=== PATIENT | female | born 1955 | race Caucasian/White ===

== ENCOUNTER 2019-12-14 09:40 | Emergency (ER) | payer MEDICARE, SELFPAY ==
[2019-12-14 09:42] VITALS: BP 161/84; PULSE 84; RESP 20; TEMP 36.9; O2SAT 98; BMI 44.2
[2019-12-14 09:55] VITALS: BP 161/84; PULSE 84; RESP 20; TEMP 36.9; O2SAT 98
--- NOTE | 2019-12-14 09:55 | VDLE_ITS ---
Reason For Study: Swelling RIGHT GSV is normal. CFV is compressible, spontaneous, competent and demonstrates pulsatile venous flow. FV is compressible, spontaneous, competent and demonstrates pulsatile venous flow. POP V is compressible, spontaneous, competent and demonstrates pulsatile venous flow. T/P Trunk is compressible. PTV is compressible. RT PerV is compressible. Calf veins difficult to visualize from prox- mid due to pt body habitus. Procedure Exam performed portable in ED. A preliminary report was called and/or faxed to Don. Interpretation Summary There is no evidence of right lower extremity deep vein thrombosis. Right great saphenous vein appears patent and compressible segmentally. See technical limitations as noted Pulsatile venous flow suggestive of proximal venous hypertension. Clinical correlation would be appropriate. Ordering Physician: Brenda Ochoa Referring Physician: Emperatriz Sepulveda M.D. Performed By: Lila Marrufo RVT
--- NOTE | 2019-12-14 09:56 | ED.VIS.GEN ---
History of Present Illness Chief Complaint: Cellulitis Informant: Patient Onset: Days - 2 days Context: Gradual Onset Current Severity: Moderate Maximum Severity: Moderate Narrative: Patient presents with redness and swelling to the right lower leg. She first noted symptoms Saturday night. This morning she states she noted the redness to come up her leg further. She denies any obvious wounds. No history of cellulitis. No history of blood clots. - Past Medical History (1) Diabetes Status: Chronic (2) Hypertension Status: Chronic (3) High cholesterol Status: Chronic (4) GERD (gastroesophageal reflux disease) Status: Chronic Past Medical History - Allergies and Home Meds Allergies/Adverse Reactions: Allergies lisinopril Allergy (Verified 12/14/19 09:44) Laryngospasms Primary Care Physician: Emperatriz Sepulveda MD [Primary Care Provider] - Prior records reviewed: Yes Review of Systems General: Denies: Chills, Fever Eyes: Denies: Visual changes - bilaterally ENT: Denies: Bilateral ear pain Cardiovascular: Denies: Chest pain Respiratory: Denies: Dyspnea, Cough Gastrointestinal: Denies: Abdominal pain Musculoskeletal: Reports: Swelling Skin: Reports: - - Erythema right lower extremity Neurological: Denies: Headache Allergy: Denies: Uticaria Physical Exam Vital Signs/Narrative: Vital Signs Temp Pulse Resp BP Pulse Ox 12/14/19 09:42 98.4 F 84 20 H 161/84 H 98 Inital Vital Signs reviewed: Yes General: Well nourished, Well developed Head: Normocephalic ENT: Moist mucous membranes Neck: Supple Cardiovascular: Regular rate, Regular rhythm Respiratory: No distress, CTA bilaterally Abdomen: Soft, Nontender Skin: - - Erythema with mild warmth to the right lower extremity. Erythema extends to just below the knee. No open wounds noted. No weeping. Neurological: Alert, Oriented x3 Psychological: Normal affect Diagnostic/Tx/Re-eval Laboratory Results 12/14/19 12/14/19 10:15 10:15 WBC 6.7 RBC 4.12 L Hgb 10.9 L Hct 33.9 L MCV 82.3 MCH 26.5 L MCHC 32.2 RDW Std Deviation 40.4 RDW Coeff of Rocio 13.6 Plt Count 223 MPV 10.6 Immature Gran % (Auto) 0.600 Neut % (Auto) 72.5 H Lymph % (Auto) 18.7 L [place] % (Auto) 7.1 Eos % (Auto) 0.7 Baso % (Auto) 0.4 Absolute Neuts (auto) 4.9 Absolute Lymphs (auto) 1.26 Nucleated RBC % 0 Sodium 137 Potassium 3.4 L Chloride 103 Carbon Dioxide 27.0 Anion Gap 7 BUN 22 H Creatinine 0.95 Estim Creat Clear Calc 54.53 Est GFR (MDRD) Af Amer 76 Est GFR (MDRD) Non-Af 62 BUN/Creatinine Ratio 23.2 H Glucose 202 H Calcium 8.7 - Medical Decision Making Venous ultrasound of the right leg obtained and reveals no evidence of DVT. Examination is consistent with cellulitis. She will be treated with Bactrim and Keflex, first doses given here. Area of erythema is outlined over the proximal lower leg. Patient was advised to return for IV antibiotics should the erythema extend beyond this line. Patient voices understanding and agreement. ED Disposition - Plan for ED Patient: Disposition: Home or Assisted Living Diagnosis: Cellulitis Instructions: Cellulitis Prescriptions: Smz/Tmp Ds [Bactrim Ds] 1 tab PO BID #20 tab Transmission Status: Pending to [id number] Cephalexin [Keflex] 500 mg PO Q6 #40 cap Transmission Status: Pending to [id number] Referrals: Emperatriz Sepulveda MD [Primary Care Provider] - 1 Week
[2019-12-14 10:36] VITALS: BP 127/71; PULSE 78; RESP 18; O2SAT 97
[2019-12-14 10:39] LABS: Absolute Lymphocyte Count 1.26 X10^3/uL (0.83-4.51); Absolute Neutrophil Count 4.9 X10^3/uL (2.0-7.7); Basophil# 0.03 X10^3/uL; Basophil% 0.4 % (0-1); Eosinophil# 0.05 X10^3/uL; Eosinophils% 0.7 % (0-5); Hematocrit 33.9 % (37-47); Hemoglobin 10.9 g/dL (12.0-15.0); Lymphocyte # 1.26 X10^3/ul (4.0); Lymphocyte % 18.7 % (19-41); Mean Corp Hgb Conc 32.2 g/dL (32-36); Mean Corpuscular Hgb 26.5 pg (27.0-32.0); Mean Corpuscular Volume 82.3 fL (81-99); Mean Platelet Vol. 10.6 fl (6.2-12.0); Monocyte# 0.48 X10^3/uL; Monocyte% 7.1 % (0-10); NRBC Flagged by Analyzer 0 % (0-5); Neutrophil # 4.87 X10^3/uL (2.7-7.7); Neutrophil % 72.5 % (47-70); Platelet Count 223 K/mm3 (150-450); RBC Distribution Width CV 13.6 % (11.6-14.6); RBC Distribution Width SD 40.4 fl (35.1-43.9); Red Blood Count 4.12 M/mm3 (4.2-5.4); White Blood Count 6.7 K/mm3 (4.4-11.0)
[2019-12-14 10:48] LABS: Anion Gap 7 (5-15); BUN 22 mg/dL (7-18); BUN/Creat Ratio 23.2 RATIO (10-20); Calcium,Total 8.7 mg/dL (8.5-10.1); Chloride 103 mmol/L (98-107); Creatinine, Serum 0.95 mg/dL (0.55-1.02); EST Glomerular Filtration Rate 62 mL/min (>60); Est Glom Filt Rate - Afr Amer 76 mL/min (>60); Estimated Creatinine Clearance 54.53 ml/min; Glucose 202 mg/dL (74-106); Potassium 3.4 mmol/L (3.5-5.1); Sodium Level 137 mmol/L (136-145)
[2019-12-14 11:00] VITALS: BP 133/67; PULSE 76; RESP 18; O2SAT 97
[2019-12-14] MEDS: Smz/Tmp Ds Tablet 1 TABLET PO (11:12)
[2019-12-14] MEDS: Cephalexin 250 MG Capsule 500 MG PO (11:13)
== END 2019-12-14 11:14 | disposition home or self-care (01) ==
PROVIDERS: Emergency Provider Emergency Medicine; PCP Internal Medicine
DX: L03.115 Cellulitis of right lower limb (principal); E11.9 Type 2 diabetes mellitus without complications; I10 Essential (primary) hypertension; E78.00 Pure hypercholesterolemia, unspecified; K21.9 Gastro-esophageal reflux disease without esophagitis; Z88.8 Allergy status to other drugs, medicaments and biological substances; Z79.4 Long term (current) use of insulin; Z79.899 Other long term (current) drug therapy
CPT/HCPCS: 80048; 85025; 93971; 99285; A4216

== ENCOUNTER 2021-01-25 15:59 | Inpatient (IN) | payer MEDICARE, SELFPAY ==
[2021-01-25] VITALS (19 sets, daily range): BP systolic 127–172; BP diastolic 68–151; PULSE 87–134; RESP 16–28; TEMP 36.4–37.1; O2SAT 88–100; BMI 44.6; BMI 46.3
--- NOTE | 2021-01-25 16:11 | EKG12_ITS ---
Test Reason : Blood Pressure : / mmHG Vent. Rate : 152 BPM Atrial Rate : 159 BPM P-R Int : 000 ms QRS Dur : 084 ms QT Int : 282 ms P-R-T Axes : 000 062 038 degrees QTc Int : 448 ms Atrial fibrillation with rapid ventricular response Nonspecific T wave abnormality Abnormal ECG Confirmed by LIZ GUERRERO, JANAE ([id number]), newspaper managing editor DWAYNE ESTEVES ([id number]) on 01/26/2021 11:31:13 AM Referred By: ESTEFANI Confirmed By:JANAE HILL MD
--- NOTE | 2021-01-25 16:12 | EDS_ITS ---
HPI History of Present Illness Chief Complaint: Fatigue Detail of Chief Complaint: Shortness of breath with activity x3 weeks Informant: patient Narrative Narrative: Patient presents to the emergency department with exertional dyspnea and generalized weakness for the last 3 weeks. She denies any chest pain or palpitations. She denies recent illness. Patient has had one Covid vaccine. Denies any blood or black tarry stool. Patient has been eating drinking normally. Patient has not had symptoms like that before. He denies urinary symptoms. Prior similar symptoms: No PFSH PFSH Medical History (Updated 01/25/21 @ 17:[address] Malena Gutierrez, DO) Diabetes GERD (gastroesophageal reflux disease) HTN (hypertension) Hyperlipemia Home Medications carvedilol 3.125 mg PO BID 12/14/19 [History Last Taken Unknown] cephalexin 500 mg PO Q6 #40 cap 12/14/19 [Rx Last Taken Unknown] felodipine 20 mg PO DAILY 12/14/19 [History Last Taken Unknown] glimepiride 4 mg PO BIDCM 12/14/19 [History Last Taken Unknown] insulin glargine 20 unit SQ QHS 12/14/19 [History Last Taken Unknown] metformin 1,000 mg PO BIDCM 12/14/19 [History Last Taken Unknown] omeprazole 20 mg PO DAILY 12/14/19 [History Last Taken Unknown] simvastatin 40 mg PO QHS 12/14/19 [History Last Taken Unknown] sulfamethoxazole-trimethoprim 1 tab PO BID #20 tab 12/14/19 [Rx Last Taken Unknown] Allergy/AdvReac Type Severity Reaction Status Date / Time lisinopril Allergy Laryngospas Verified 01/25/21 16:02 ms Social History Smoking Status: Never smoker ROS [facility] ED Constitutional Constitutional ED: Reports systems reviewed and no addt'l complaints, except as documented; Denies body ache(s), change in weight or chills Eyes Eyes: Denies acute decrease in peripheral vision, change in vision, double vision or loss of vision ENT ENT ED: Reports none; Denies ear pain, lip swelling, loss taste/smell, neck pain, otalgia or sore throat Cardiovascular Cardiovascular: Reports none; Denies abdominal pain, chest pain with activity, leg edema, lightheadedness, palpitations, rapid heart rate or syncope Respiratory/Chest Respiratory/Chest: Reports none, dyspnea and dyspnea on exertion; Denies change in mental status, cough, dry cough, hemoptysis, shortness of breath at rest or shortness of breath with exertion Gastrointestinal Gastrointestinal: Reports none; Denies abdominal pain, change in stool character, diarrhea, hematemesis, hematochezia, melena, rectal bleeding or vomiting Genitourinary Genitourinary ED: Reports none; Denies abdominal discomfort, anuria, dysuria, genital pain or polyuria Musculoskeletal Musculoskeletal: Reports none; Denies arthralgias, back pain, difficulty walking, extremity pain, muscle weakness or myalgias Integumentary Reports none; Denies abscess or rash Neurologic Neurologic: Reports none and weakness; Denies abnormal gait, confusion, focal weakness, frequent falls, headache(s), loss of vision, numbness, paresthesias, radicular pain or vertigo Psychiatric Psychiatric: Reports systems reviewed and no addt'l complaints, except as documented and none; Denies behavioral changes, confusion, difficulty concent rating, hallucinations, suicidal ideation, tactile hallucinations or visual hallucinations Endocrine Endocrinology: Denies none, cold intolerance, excessive sweating, fatigue or heat intolerance Hematologic/Lymphatic Hematologic/Lymphatic: Reports none; Denies anemia, easy bleeding or easy bruising Allergic/Immunologic Allergic/Immunologic ED: Denies as per HPI, none, lip swelling, mouth swelling, throat swelling, tongue swelling or hives EXAM Physical Exam Const Vital Signs: 01/25/21 16:00 01/25/21 16:27 Temperature 97.6 F L Temperature Source Temporal Pulse Rate 134 H Respiratory Rate 16 Respiratory Pattern Normal Blood Pressure 134/76 H Blood Pressure Mean 95 Pulse Ox 92 Oxygen Delivery Method Room Air Positive well nourished and well developed General Appearance ED: well developed and NAD HEENT Reports TM's clear and moist mucous membranes normocephalic and atraumatic; Negative for trauma or tenderness Tympanic Membrane ED: Yes TM's clear Eyes PERRL and EOMs intact bilaterally General Eye ED: Negative for pale conjunctiva or scleral icterus Neck no lymphadenopathy, supple and no JVD General: Negative for tenderness Chest Wall inspection of chest normal and palpation of chest normal Chest: Negative for tenderness Resp normal respiratory effort and clear to auscultation bilaterally Effort and Inspection: Negative for respiratory distress or pain with movement Auscultation: Negative for rhonchi, wheezes or diminished lung sounds Cardio S1 normal heart sound, S2 normal heart sound and no murmurs; Negative for regular rate or regular rhythm Rate: tachycardic and other Other Details: Irregularly irregular and tachycardic Peripheral Pulses: pulses 2+ throughout GI normal to inspection, nondistended, normoactive bowel sounds, soft to palpation, non-tender, non-distended and no masses Back/Spine no CVA tenderness and no thoracic nor lumbar tenderness Extremity normal to inspection Extremity Narrative: Lymphedema of both lower extremities noted General Extremety ED: Negative for edema General Extremity: Negative for edema Neuro oriented x3, CN's II-XII intact bilaterally, no sensory deficits noted and gait normal Sensorium / Orientation: awake, alert, oriented to person, oriented to place and oriented to time Motor Exam: strength 5/5 throughout and strength abnormal Psych mental status grossly normal Skin no rashes or lesions noted and no wounds MDM MDM MDM Narrative Medical decision making narrative: And receive Cardizem 20 mg IV bolus and is slowed her down into the 80s and 90s. Patient will receive Lasix 40 mg IV. Will be admitted to hospitalist service. Lab Data Attestation: I reviewed the patient's lab results. Labs: Laboratory Results - last 24 hr 01/25/21 01/25/21 01/25/21 16:24 16:24 16:24 WBC 8.8 RBC 4.47 Hgb 11.5 L Hct 36.8 L MCV 82.3 MCH 25.7 L MCHC 31.3 L RDW Std Deviation 42.7 RDW Coeff of Rocio 14.3 Plt Count 313 MPV 11.1 Immature Gran % (Auto) 0.200 Neut % (Auto) 76.4 H Lymph % (Auto) 15.8 L [place] % (Auto) 6.3 Eos % (Auto) 0.8 Baso % (Auto) 0.5 Absolute Neuts (auto) 6.7 Absolute Lymphs (auto) 1.39 Nucleated RBC % 0 PT 15.2 H INR 1.3 APTT 34.1 Sodium 139 Potassium 3.7 Chloride 108 H Carbon Dioxide 24.0 Anion Gap 7 BUN 17 Creatinine 1.10 H Estim Creat Clear Calc 46.46 Est GFR (MDRD) Af Amer 64 Est GFR (MDRD) Non-Af 53 L BUN/Creatinine Ratio 15.5 Glucose 166 H Calcium 9.0 Troponin I < 0.015 B-Natriuretic Peptide 01/25/21 16:24 WBC RBC Hgb Hct MCV MCH MCHC RDW Std Deviation RDW Coeff of Rocio Plt Count MPV Immature Gran % (Auto) Neut % (Auto) Lymph % (Auto) [place] % (Auto) Eos % (Auto) Baso % (Auto) Absolute Neuts (auto) Absolute Lymphs (auto) Nucleated RBC % PT INR APTT Sodium Potassium Chloride Carbon Dioxide Anion Gap BUN Creatinine Estim Creat Clear Calc Est GFR (MDRD) Af Amer Est GFR (MDRD) Non-Af BUN/Creatinine Ratio Glucose Calcium Troponin I B-Natriuretic Peptide 197.4 H Radiography Chest X-Ray - ED: 1 View Diagnostic Testing: Radiology Impression Chest X-Ray 01/25/21 16:27 IMPRESSION: Findings consistent with mild congestive failure and small bilateral pleural effusions. Electronically Signed: Ken Urbano MD at 16:49 EDT , Service support , 1 view chest x-ray obtained interpreted by myself as bilateral effusions and pulmonary congestion consistent with CHF. EKG Initial EKG: Comments: Calculation with rapid ventricular response with a rate of 152 bpm Discharge Plan Triage Chief Complaint: Fatigue ED Provider: Malena Gutierrez Dx/Rx/DC Orders Clinical Impression: Atrial fibrillation with rapid ventricular response, CHF (congestive heart failure) Prescriptions: No Action simvastatin 40 MG tablet 40 mg PO QHS RF: 0 carvedilol 3.125 MG tablet 3.125 mg PO BID RF: 0 glimepiride 4 MG tablet 4 mg PO BIDCM RF: 0 omeprazole 20 MG capsule,delayed release(DR/EC) 20 mg PO DAILY RF: 0 felodipine 10 MG tablet extended release 24 hr 20 mg PO DAILY RF: 0 metformin 500 MG tablet extended release 24 hr 1,000 mg PO BIDCM RF: 0 insulin glargine 100 UNIT/ML insulin pen 20 unit SQ QHS RF: 0 sulfamethoxazole-trimethoprim 1 TABLET tablet 1 tab PO BID Qty: 20 RF: 0 cephalexin 500 MG capsule 500 mg PO Q6 Qty: 40 RF: 0 Primary Care Provider: Emperatriz Sepulveda Referrals: Emperatriz Sepulveda MD [Primary Care Provider] - Disposition Disposition: Acute Care [facility]
--- NOTE | 2021-01-25 16:27 | RAD_ITS ---
STUDY: X-RAY CHEST REASON FOR EXAM: Female, 65 years old. dyspnea TECHNIQUE: AP portable COMPARISON: None. FINDINGS: Mild bilateral perihilar interstitial infiltrates or pulmonary edema with small effusions.. Heart is enlarged.. Normal mediastinum and haseeb. Normal visualized pulmonary arteries. Mildly calcified aortic arch and descending thoracic aorta. Dorsal spine and shoulders demonstrates degenerative change. Normal visualized ribs, and clavicles There is no demonstrated abnormality of the visualized soft tissue structures of the upper abdomen. RAD/Chest 1 View (Portable) IMPRESSION: Findings consistent with mild congestive failure and small bilateral pleural effusions. Electronically Signed: Ken Urbano MD at 16:49 EDT , Service support ,
[2021-01-25] MEDS: 0.9% Normal Saline 1,000 ML 1000 ML IV (16:29)
[2021-01-25 16:32] LABS: Absolute Lymphocyte Count 1.39 X10^3/uL (0.83-4.51); Absolute Neutrophil Count 6.7 X10^3/uL (2.0-7.7); Basophil# 0.04 X10^3/uL; Basophil% 0.5 % (0-1); Eosinophil# 0.07 X10^3/uL; Eosinophils% 0.8 % (0-5); Hematocrit 36.8 % (37-47); Hemoglobin 11.5 g/dL (12.0-15.0); Lymphocyte # 1.39 X10^3/ul (0.83-4.51); Lymphocyte % 15.8 % (19-41); Mean Corp Hgb Conc 31.3 g/dL (32-36); Mean Corpuscular Hgb 25.7 pg (27.0-32.0); Mean Corpuscular Volume 82.3 fL (81-99); Mean Platelet Vol. 11.1 fl (6.2-12.0); Monocyte# 0.56 X10^3/uL; Monocyte% 6.3 % (0-10); NRBC Flagged by Analyzer 0 % (0-5); Neutrophil # 6.74 X10^3/uL (2.7-7.7); Neutrophil % 76.4 % (47-70); Platelet Count 313 K/mm3 (150-450); RBC Distribution Width CV 14.3 % (11.6-14.6); RBC Distribution Width SD 42.7 fl (35.1-43.9); Red Blood Count 4.47 M/mm3 (4.2-5.4); White Blood Count 8.8 K/mm3 (4.4-11.0)
[2021-01-25] MEDS: dilTIAZem 25 MG/5 ML Vial 20 MG IV BOLUS (16:51)
[2021-01-25 16:53] LABS: International Normalized Ratio 1.3; Partial Thromboplast Time 34.1 Seconds (24.1-36.2); Prothrombin Time (Protime)PT. 15.2 SECONDS (11.7-14.9)
[2021-01-25 17:11] LABS: BNP,B-Type NATRIURETIC PEPTIDE 197.4 pg/mL (0-100)
[2021-01-25 17:19] LABS: Anion Gap 7 (5-15); BUN 17 mg/dL (7-18); BUN/Creat Ratio 15.5 RATIO (10-20); Chloride 108 mmol/L (98-107); EST Glomerular Filtration Rate 53 mL/min (>60); Est Glom Filt Rate - Afr Amer 64 mL/min (>60); Estimated Creatinine Clearance 46.46 ml/min; Glucose 166 mg/dL (74-106); Potassium 3.7 mmol/L (3.5-5.1); Sodium Level 139 mmol/L (136-145)
--- NOTE | 2021-01-25 18:08 | HP.PCM_ITS ---
Documented by User: SHAILESH Pereyra 01/25/21 18:42 HPI - General HPI Narrative FORTINO MONTES, is a 65 F who presents today with complaints of feeling weak, tired and short of breath with exertion for the past 3 weeks. Patient denies palpitations, chest pain or increase in swelling. Patient denies any history of atrial fibrillation or congestive heart failure. Patient received Cardizem bolus in ER for heart rate of 130s and states that she subsequently feels less short of breath, current heart rate 90-95. Patient denies fever, chills, nausea, vomiting, diarrhea, constipation. [facility] Medical History Diabetes GERD (gastroesophageal reflux disease) HTN (hypertension) Hyperlipemia Home Medications carvedilol 3.125 mg PO BID 12/14/19 [History Last Taken 01/25/21] felodipine 20 mg PO DAILY 12/14/19 [History Last Taken 01/25/21] glimepiride 4 mg PO BIDCM 12/14/19 [History Last Taken 01/25/21] insulin glargine 22 unit SQ QHS 12/14/19 [History Last Taken 01/24/21] omeprazole 20 mg PO DAILY 12/14/19 [History Last Taken 01/25/21] simvastatin 40 mg PO QHS 12/14/19 [History Last Taken 01/24/21] cranberry 900 mg PO BID 01/25/21 [History Last Taken 01/25/21] multivitamin 1 tab PO DAILY 01/25/21 [History Last Taken 01/23/21] Allergy/AdvReac Type Severity Reaction Status Date / Time lisinopril Allergy Laryngospas Verified 01/25/21 16:02 ms Social History Smoking Status: Never smoker ROS Constitutional Constitutional: Reports fatigue and weakness; Denies anorexia or chills Cardiovascular Cardiovascular: Reports dyspnea on exertion; Denies chest pain or palpitations Respiratory/Chest Respiratory/Chest: Reports shortness of breath with exertion; Denies cough Gastrointestinal Gastrointestinal: Denies abdominal pain, constipation, diarrhea, nausea or vomiting Genitourinary Genitourinary: Denies dysuria Musculoskeletal Musculoskeletal: Denies back pain, extremity pain or joint pain Integumentary Integumentary: Denies dry skin, rash or wounds Neurologic Neurologic: Denies abnormal gait, abnormal speech, confusion or dizziness Psychiatric Psychiatric: Denies anxiety or depression Endocrine Endocrinology: Denies change in body appearance Hematologic/Lymphatic Hematologic/Lymphatic: Denies easy bleeding or easy bruising Vital Signs Vital Signs Vital Signs: 01/25/21 16:00 01/25/21 16:27 Temperature 97.6 F L Temperature Source Temporal Pulse Rate 134 H Respiratory Rate 16 Respiratory Pattern Normal Blood Pressure 134/76 H Blood Pressure Mean 95 Pulse Ox 92 Oxygen Delivery Method Room Air Weight Weight: 277 lb Body Mass Index (BMI) 44.6 Physical Exam Const alert and oriented x3 General Appearance: cooperative HEENT normocephalic and head/scalp atraumatic Eyes PERRL Neck supple and no JVD General: trachea midline Lymph Lymphatic: no lymphadenopathy noted Resp normal respiratory effort, normal air movement and clear to auscultation bilaterally Cardio peripheral pulses 2+ throughout Rate: tachycardic Rhythm: abnormal rhythm irregularly irregular GI normal to inspection, nondistended, normoactive bowel sounds, soft to palpation and non-tender Extremity normal capillary refill and no clubbing, cyanosis or edema General Extremity: no tenderness to palpation of joints or extremities Skin General Skin Exam: no breakdown and turgor normal Lesions: no lesions Rashes: no rashes Neuro CN's II-XII intact bilaterally Psych thought process normal, cooperative and affect normal Appearance: appropriate Lab / Micro Data Result Diagrams: 01/25/21 16:24 01/25/21 16:24 Labs: Laboratory Results - last 24 hr 01/25/21 01/25/21 01/25/21 16:24 16:24 16:24 WBC 8.8 RBC 4.47 Hgb 11.5 L Hct 36.8 L MCV 82.3 MCH 25.7 L MCHC 31.3 L RDW Std Deviation 42.7 RDW Coeff of Rocio 14.3 Plt Count 313 MPV 11.1 Immature Gran % (Auto) 0.200 Neut % (Auto) 76.4 H Lymph % (Auto) 15.8 L [place] % (Auto) 6.3 Eos % (Auto) 0.8 Baso % (Auto) 0.5 Absolute Neuts (auto) 6.7 Absolute Lymphs (auto) 1.39 Nucleated RBC % 0 PT 15.2 H INR 1.3 APTT 34.1 Sodium 139 Potassium 3.7 Chloride 108 H Carbon Dioxide 24.0 Anion Gap 7 BUN 17 Creatinine 1.10 H Estim Creat Clear Calc 46.46 Est GFR (MDRD) Af Amer 64 Est GFR (MDRD) Non-Af 53 L BUN/Creatinine Ratio 15.5 Glucose 166 H Calcium 9.0 Troponin I < 0.015 B-Natriuretic Peptide 01/25/21 16:24 WBC RBC Hgb Hct MCV MCH MCHC RDW Std Deviation RDW Coeff of Rocio Plt Count MPV Immature Gran % (Auto) Neut % (Auto) Lymph % (Auto) [place] % (Auto) Eos % (Auto) Baso % (Auto) Absolute Neuts (auto) Absolute Lymphs (auto) Nucleated RBC % PT INR APTT Sodium Potassium Chloride Carbon Dioxide Anion Gap BUN Creatinine Estim Creat Clear Calc Est GFR (MDRD) Af Amer Est GFR (MDRD) Non-Af BUN/Creatinine Ratio Glucose Calcium Troponin I B-Natriuretic Peptide 197.4 H Radiology Impression Chest X-Ray 01/25/21 16:27 IMPRESSION: Findings consistent with mild congestive failure and small bilateral pleural effusions. Electronically Signed: Ken Urbano MD at 16:49 EDT , Service support , Assessment & Plan Assessment/Plan (1) Atrial fibrillation with rapid ventricular response: (2) CHF (congestive heart failure): QUALIFIERS: Heart failure chronicity: acute Heart failure type: unspecified Qualified Code(s): I50.9 - Heart failure, unspecified PLAN: 1. Atrial fibrillation with rapid ventricular response -Admit to PCU for continuous cardiac monitoring -Continue carvedilol 3.125 twice daily for rate control, consider increasing once Cardizem drip is discontinued for better rate control -Vital signs per protocol, trend BP and heart rate. -Trend cardiac enzymes, initial negative -Echo in a.m. -PT and OT to eval and treat for weakness and fatigue -Will obtain TSH due to new onset A. fib -CBC, CMP in a.m., trend -Initiate Cardizem drip -Therapeutic Lovenox, will transition to oral prior to discharge 2. Congestive heart failure -Lasix 40 mg given in ER, will continue Lasix 40 mg IV twice daily -Daily weights -Strict intake and output for evaluation of Lasix efficacy 3. Hypertension -Continue felodipine, carvedilol -Vital signs per protocol trend BP 4. High cholesterol -Continue simvastatin -Obtain fasting lipid panel in a.m. 5. Diabetes mellitus type 2 -Continue home Lantus 22 units nightly, glimepiride twice daily. -AC at bedtime blood sugars with sliding scale insulin 6. Gastroesophageal reflux disease -Continue pantoprazole DVT Prophylaxis-not indicated, therapeutic Lovenox this patient was seen by SHAILESH Pereyra under the supervision of Dr. Anderson. Documented by User: Dr. Reema Anderson MD 01/25/21 19:09 HPI - General General Date of Admission: 01/25/21 [facility] Medical History Diabetes GERD (gastroesophageal reflux disease) HTN (hypertension) Hyperlipemia Home Medications carvedilol 3.125 mg PO BID 12/14/19 [History Last Taken 01/25/21] felodipine 20 mg PO DAILY 12/14/19 [History Last Taken 01/25/21] glimepiride 4 mg PO BIDCM 12/14/19 [History Last Taken 01/25/21] insulin glargine 22 unit SQ QHS 12/14/19 [History Last Taken 01/24/21] omeprazole 20 mg PO DAILY 12/14/19 [History Last Taken 01/25/21] simvastatin 40 mg PO QHS 12/14/19 [History Last Taken 01/24/21] cranberry 900 mg PO BID 01/25/21 [History Last Taken 01/25/21] multivitamin 1 tab PO DAILY 01/25/21 [History Last Taken 01/23/21] Allergy/AdvReac Type Severity Reaction Status Date / Time lisinopril Allergy Laryngospas Verified 01/25/21 16:02 ms Social History Smoking Status: Never smoker Lab / Micro Data Result Diagrams: 01/25/21 16:24 01/25/21 16:24 Addendum Addendum: This patient was seen in conjunction with Vj Post NP. I have independently interviewed and examined the patient and reviewed pertinent historical, laboratory, and other data. I have reviewed her note and concur with her documentation. 65 y/o female with PMHx of Type 2 DM, Hypertension, hyperlipidemia who comes in with dyspnea on exertion ongoing for weeks. Patient denied any chest pain no palpitations or dizziness. She has chronic leg edema and felt that her leg edema was worse. She has also gained about 12 pounds of weight over the past few months. She denied orthopnea or PND. Denies fever chills In the ED, patient was found to be in A. fib with RVR. She received Cardizem and Lasix. She was feeling better at the time of being seen. Physical Exam: Gen:Morbidly obese, comfortable, not pale, not jaundiced CVS:HS I +II, regular, no murmurs RESP: Diminished at lung bases GI: BS present and normal, soft, nontender, no palpable organs EXT:Bilateral edema +4, chronic lymphedema, in chronic ABNER hoses ASSESSMENT: 1. A. fib with RVR 2. Acute CHF, unclear EF for now 3. Hypertension 4. Type 2 DM 5. Hyperlipidemia 6. Morbid obesity Plan: Continue on Cardizem drip 2D-ECHO, cardiac enzymes, cardiology consult Lasix 40mg IV BID Check magnesium Continue on home meds, blood glucose checks with ISS Visit Charges Inpatient E&M: 97528 Init Hosp L3 Procedures Hospitalists Procedures: 19423 Advncd Care Plan 30 Min
[2021-01-25] MEDS: Furosemide 40 MG/4 ML Vial IV (18:17)
[2021-01-25] MEDS: Enoxaparin 120 MG/0.8 ML Syringe SC (18:32)
--- NOTE | 2021-01-25 18:44 | ECHOCS_ITS ---
Version 2 Reason For Study: AFIB/FLUTTER Procedure This was a 2D Doppler, Color Flow transthoracic echocardiogram. The study was technically difficult. Contrast injection was performed. Exam performed portable in patient room. Left Ventricle Borderline enlarged left ventricle. Moderate global left ventricular systolic dysfunction. The estimated ejection fraction is 35 %. Unable to assess diastolic dysfunction. Right Ventricle Normal RV size. Normal systolic function. Atria The left atrium is mildly enlarged. Normal right atrium. No doppler evidence for ASD. Mitral Valve There is mild mitral annular calcification. Extension of the mitral annular calcification on the base of the posterior mitral valve leaflet. Mild (1+) mitral valve insufficiency. Tricuspid Valve Normal tricuspid valve. Mild tricuspid valve insufficiency. Right ventricular systolic pressure estimated to be 66 mmHg. Aortic Valve Trisinus/trileaflet aortic valve. Normal aortic valve. Pulmonic Valve The pulmonic valve is not well visualized. Trivial pulmonic valve insufficiency. Great Vessels Borderline enlarged aortic root. Pericardium/Pleural No pericardial effusion. Medication Diluted definity 4ml given slow IV push to enhance endocardial definition. MMode/2D Measurements & Calculations LVIDd: 5.2 cm IVSd: 0.94 cm Ao root diam: 3.9 cm LVIDs: 4.6 cm LVPWd: 0.93 cm RVDd: 4.6 cm FS: 10.3 % LAV(MOD-bp): 83.6 ml LVAd ap4: 42.4 cm2 LVAd ap2: 36.9 cm2 LAV(MOD-bp) Indexed: 35.9 ml/m2 LVLd ap4: 9.1 cm LVLd ap2: 8.4 cm LAV(MOD-sp2): 70.6 ml EDV(MOD-sp4): 162.5 ml EDV(MOD-sp2): 137.8 ml LAV(MOD-sp4): 89.1 ml EDV(sp4-el): 166.9 ml EDV(sp2-el): 137.5 ml LVAs ap4: 32.2 cm2 LVAs ap2: 32.5 cm2 LVLs ap4: 8.0 cm LVLs ap2: 7.9 cm ESV(MOD-sp4): 106.1 ml ESV(MOD-sp2): 111.0 ml ESV(sp4-el): 110.4 ml ESV(sp2-el): 113.3 ml EF(MOD-sp4): 34.7 % EF(MOD-sp2): 19.5 % EF(sp4-el): 33.9 % SV(MOD-sp4): 56.4 ml SV(MOD-sp2): 26.8 ml SV(sp4-el): 56.5 ml LA A4 area: 25.9 cm2 LA dimension(2D): 3.7 cm RA A4 area: 19.1 cm2 Time Measurements MV dec time: 0.12 sec Doppler Measurements & Calculations MV E max heidy: 124.0 cm/sec Ao V2 max: 118.9 cm/sec LV V1 max: 97.9 cm/sec Ao max P.7 mmHg LV V1 max P.9 mmHg PA V2 max: 119.6 cm/sec TR max heidy: 356.2 cm/sec TR max P.7 mmHg ECHO/Echo Complete W/ Contrast Interpretation Summary The study was technically difficult. Contrast injection was performed. Borderline enlarged left ventricle. Moderate global left ventricular systolic dysfunction. The estimated ejection fraction is 35 %. The left atrium is mildly enlarged. There is mild mitral annular calcification. Extension of the mitral annular calcification on the base of the posterior mitr al valve leaflet. Mild (1+) mitral valve insufficiency. Mild tricuspid valve insufficiency. Trivial pulmonic valve insufficiency. Borderline enlarged aortic root. Right ventricular systolic pressure estimated to be 66 mmHg c/w pulmonary hyper tension. Unable to assess diastolic dysfunction. Ordering Physician: Reema Anderson Referring Physician: MAXIM JIMENEZ Performed By: Ariane Chowdary, RDCS, RVT
[2021-01-25] MEDS: Carvedilol 3.125 MG TABLET PO (20:14)
[2021-01-25] MEDS: Atorvastatin Calcium 20 MG Tablet PO (20:14)
--- NOTE | 2021-01-25 20:15 | NURSING ---
Pt requesting to have meds early. HR still high and could benefit from having Coreg given earlier with the Cardizem gtt.
[2021-01-25 20:26] LABS: Bedside Glucose 143 mg/dL (70-110)
[2021-01-25 20:52] LABS: Magnesium 1.6 mg/dL (1.6-2.6); Thyroid Stim Hormone (TSH) 2.42 uIU/mL (0.358-3.74)
[2021-01-26] VITALS (35 sets, daily range): BP systolic 113–149; BP diastolic 64–100; PULSE 70–110; RESP 16–28; TEMP 36.3–36.7; O2SAT 89–98
[2021-01-26 02:12] LABS: Absolute Lymphocyte Count 1.82 X10^3/uL (0.83-4.51); Absolute Neutrophil Count 5.8 X10^3/uL (2.0-7.7); Basophil# 0.04 X10^3/uL; Basophil% 0.5 % (0-1); Eosinophil# 0.09 X10^3/uL; Eosinophils% 1.1 % (0-5); Hematocrit 37.7 % (37-47); Hemoglobin 11.6 g/dL (12.0-15.0); Lymphocyte # 1.82 X10^3/ul (0.83-4.51); Lymphocyte % 21.7 % (19-41); Mean Corp Hgb Conc 30.8 g/dL (32-36); Mean Corpuscular Hgb 25.7 pg (27.0-32.0); Mean Corpuscular Volume 83.6 fL (81-99); Mean Platelet Vol. 11.1 fl (6.2-12.0); Monocyte# 0.59 X10^3/uL; NRBC Flagged by Analyzer 0 % (0-5); Neutrophil # 5.79 X10^3/uL (2.7-7.7); Neutrophil % 69.2 % (47-70); Platelet Count 315 K/mm3 (150-450); RBC Distribution Width CV 14.2 % (11.6-14.6); RBC Distribution Width SD 43.1 fl (35.1-43.9); Red Blood Count 4.51 M/mm3 (4.2-5.4); White Blood Count 8.4 K/mm3 (4.4-11.0)
[2021-01-26 02:31] LABS: ALB/GLOB Ratio 0.8 RATIO (0.9-2.4); AST(SGOT) 21 U/L (15-37); Alanine Aminotransfer ALT/SGPT 30 U/L (13-56); Albumin, Serum 3.3 g/dL (3.2-5.0); Alkaline Phosphatase 100 U/L (45-117); Anion Gap 6 (5-15); BUN 18 mg/dL (7-18); BUN/Creat Ratio 16.5 RATIO (10-20); Calcium,Total 8.8 mg/dL (8.5-10.1); Chloride 109 mmol/L (98-107); Cholesterol 129 mg/dL (200); Creatinine, Serum 1.09 mg/dL (0.55-1.02); EST Glomerular Filtration Rate 53 mL/min (>60); Est Glom Filt Rate - Afr Amer 64 mL/min (>60); Estimated Creatinine Clearance 46.89 ml/min; Globulin 4.2 g/dL (2.2-4.2); Glucose 191 mg/dL (74-106); High Density Lipoprotein 59 mg/dL; Potassium 3.2 mmol/L (3.5-5.1); Protein, Total 7.5 g/dL (6.4-8.2); Sodium Level 141 mmol/L (136-145); Triglycerides 81 mg/dL; Very Low Density Lipoprotein 16 mg/dL (5-40)
[2021-01-26] MEDS: Potassium Chloride Oral Tablet 20 MEQ 40 MEQ PO (06:26)
[2021-01-26 06:45] LABS: Bedside Glucose 137 mg/dL (70-110)
--- NOTE | 2021-01-26 08:41 | CON.PCM.CA_ITS ---
Assessment & Plan Assessment/Plan (1) Atrial fibrillation with rapid ventricular response: PLAN: The patient presents with atrial fibrillation with RVR. The etiology may be multifactorial secondary to combination of age, hypertension, MORGAN, as well as other conditions yet to be defined. At the moment she is being monitored. She has been treated medically with rate control therapy. She has been placed on anticoagulant therapy with subcutaneous Lovenox. She is pending further evaluation with a transthoracic echocardiogram. Depending upon her clinical course and findings she may, at some point in time, need additional cardiovascular diagnostic studies to assist in her ongoing evaluation care. Also, at some point in time, she may need to be considered for an attempt at regaining sinus rhythm with synchronized biphasic DC cardioversion. (2) CHF (congestive heart failure): QUALIFIERS: Heart failure type: unspecified Heart failure chronicity: acute Qualified Code(s): I50.9 - Heart failure, unspecified PLAN: She was diagnosed with CHF. It is unclear if this is solely related to the findings of atrial fibrillation versus other cardiovascular/medical conditions. At the moment she is being monitored. She is being treated medically for her atrial dysrhythmia. She has also received IV diuretic therapy to assist with volume control. She is pending further evaluation with a transthoracic echocardiogram. (3) High cholesterol: PLAN: She does have a history of hyperlipidemia. She should continue lip id-lowering therapy as deemed appropriate. (4) Hypertension: QUALIFIERS: Hypertension type: essential hypertension Qualified Code(s): I10 - Essential (primary) hypertension PLAN: She does have a history of hypertension. She can continue medical management with adjustment as deemed appropriate around her other cardiovascular and comorbidities. Of note, depending upon her clinical course, if there is any concern that her dihydropyridine inhibitor (felodipine) is contributing to any of her lower extremity edema than it may need to be decreased and/or discontinued. (5) Diabetes: PLAN: She will continue evaluation care per internal medicine. Addt'l Comments Overall, at the present time, she will continue to be monitored. She will continue medical therapy to assist with her atrial dysrhythmia as well as her CHF presentation. She will continue her noninvasive evaluation at this time with a transthoracic echocardiogram. Again, depending upon her clinical course and findings, at some point in time she may need further cardiac diagnostic studies as well as consideration for an attempt at regaining sinus rhythm with a synchronized biphasic DC cardioversion (which, unless needed urgently/emergently, would be after she had been on medical management including anticoagulant therapy for an appropriate period of time). The above was discussed and reviewed with the patient. She was agreeable to this approach. This note was generated using a voice recognition system and there may be incorrect words, spelling or punctuation that were not noted when reviewing the office note prior to saving. HPI Consult Data Date of Consult: 01/26/21 HPI Narrative HPI Narrative: FORTINO MONTES, is a 65 year old white female who presents for cardiovascular consultation based upon concerns of atrial fibrillation and congestive heart failure (yet to be defined) superimposed upon a history of hyperlipidemia, hypertension, and diabetes mellitus. 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 Robles) for her primary medical concerns and her MORGAN. To the best of her knowledge she has never had to go through any formal cardiovascular diagnostic studies/procedures. She notes that she has had chronic lower extremity peripheral pitting edema for which she has been treated with support/compression stockings. However, she notes that over approximately the last 2 to 4 weeks she has felt more tired, fatigued, short of breath with activity, and has had worsening lower extremity peripheral pitting edema. She has denied any ongoing chest discomfort at rest or with exertion. She states she sleeps with 2 pillows as well as her MORGAN device. There has been no near syncope or syncope. She has not sensed obvious palpitations or rapid heart rates. Based upon her ongoing symptoms she presented to the emergency department for further evaluation. She was found to be in atrial fibrillation with RVR. Her troponin I level was negative. A chest x-ray suggested increased pulmonary vascularity and blunting of the costophrenic angles compatible with bilateral pleural effusions. She was treated with IV diltiazem and IV furosemide and placed in the PCU for further evaluation and care. She does state that she feels somewhat better this morning as she feels somewhat more mentally clear compared to what she had been feeling recently where she noted in the morning hours she felt somewhat foggy . Since being in the PCU she has had follow-up troponin I levels. They have been reported as negative. Her cardiac rhythm has been atrial fibrillation with a controlled ventricular response on IV diltiazem and initiation of oral beta- olga therapy. She is pending further evaluation with a transthoracic echocardiogram. [facility] Medical History (Updated 01/26/21 @ 08:[address] Martínez Dawson MD) Diabetes GERD (gastroesophageal reflux disease) HTN (hypertension) Hyperlipemia Sleep apnea Home Medications carvedilol 3.125 mg PO BID 12/14/19 [History Last Taken 01/25/21] felodipine 20 mg PO DAILY 12/14/19 [History Last Taken 01/25/21] glimepiride 4 mg PO BIDCM 12/14/19 [History Last Taken 01/25/21] insulin glargine 22 unit SQ QHS 12/14/19 [History Last Taken 01/24/21] omeprazole 20 mg PO DAILY 12/14/19 [History Last Taken 01/25/21] simvastatin 40 mg PO QHS 12/14/19 [History Last Taken 01/24/21] cranberry 900 mg PO BID 01/25/21 [History Last Taken 01/25/21] multivitamin 1 tab PO DAILY 01/25/21 [History Last Taken 01/23/21] Allergy/AdvReac Type Severity Reaction Status Date / Time lisinopril Allergy Laryngospas Verified 01/25/21 16:02 ms Social History Smoking Status: Never smoker ROS Constitutional Constitutional: Reports weakness Eyes Eyes: Reports as per HPI ENT HEENT: Reports as per HPI Cardiovascular Cardiovascular: Reports dyspnea on exertion, edema and fatigue Respiratory/Chest Respiratory/Chest: Reports dyspnea on exertion Gastrointestinal Gastrointestinal: Reports as per HPI Genitourinary Genitourinary: Reports as per HPI Musculoskeletal Musculoskeletal: Reports as per HPI Integumentary Integumentary: Reports as per HPI Neurologic Neurologic: Reports as per HPI Physical Exam Const alert and oriented x3 Orientation / Consciousness: awake HEENT normocephalic, head/scalp atraumatic and hearing grossly normal bilaterally Eyes PERRL, EOMs intact bilaterally, conjunctivae normal and no scleral icterus Neck full ROM, supple and no JVD Chest inspection of chest normal Resp Auscultation: diminished lung sounds bilateral lower Cardio Rhythm: abnormal rhythm irregularly irregular Heart Sounds: S1 normal and S2 normal GI normal to inspection, nondistended, normoactive bowel sounds Extremity General Extremity: edema bilateral lower extremity Details: severe Skin no rashes or lesions noted Neuro oriented x3 and moves all extremities Psych mental status grossly normal Procedure Criteria Type of Procedure Procedure Type: Elective Elective Risks - COVID COVID Risk Discussion: The surgeon/proceduralist and patient have discussed in detail the risk of exposure to and/or potential harm posed by the COVID-19 virus with having a surgery/procedure at this time versus the risk of delaying the surgery/procedure. It is not possible to know either the risk of delaying the surgery or procedure or chance of getting an infection with perfect accuracy, but a joint decision was made between the patient and the surgeon/proceduralist to proceed at this time with the scheduled surgery/procedure as indicated on the consent form.
[2021-01-26] MEDS: Glimepiride 4 MG Tablet PO ×2 (09:50→17:23)
[2021-01-26] MEDS: Multivitamins,Therapeutic Tablet 1 TABLET PO (09:50)
[2021-01-26] MEDS: Pantoprazole Sodium 20 MG Tablet PO (09:50)
[2021-01-26] MEDS: Carvedilol 3.125 MG TABLET PO (09:50)
[2021-01-26] MEDS: Enoxaparin 150 MG/ML Syringe 130 MG SC ×2 (09:53→20:50)
[2021-01-26] MEDS: 0.9% Saline Lock 10 ML Syringe IV ×2 (09:54→17:26)
[2021-01-26] MEDS: Furosemide 40 MG/4 ML Vial IV ×2 (09:54→17:26)
--- NOTE | 2021-01-26 10:42 | CASEMGMT ---
RAQUEL RIOJAS assesment: Face to Face with patient for initial transition planning/care coordination assessment. RAQUEL RIOJAS introduced self and role at [facility], pt voices understanding and consents to assessment. Pt is sitting up on side of bed in no distress on room air. Pt is A/Ox4 and answers all questions appropriately.? Care providers, pharmacy,?and demographics verified. ? Presentation: Pt c/o increased fatigue for 3 weeks Admitting dx: Afib RVR, CHF PCP: Derick Specialists: nabor Robles [facility]erred [facility]acy: [facility] Living Will/HPOA: Pt states does not have LW/HPOA but would like to complete AD's at this time. Shahbaz SW aware, voices understanding. LNOK: Jah Allen, son; Martínez Allen, son Living Arrangements: Pt states lives alone in 2 story home and states normally no concerns at home but states d/t fatigue has had difficulty for last several weeks. Pt states is normally independent with ADL's. Transportation: Pt states drives self and states no transportation concerns. DME/HHC: Pt states has 2L nc at bedtime and cpap thru [employer]. Pt states no need for any further DME. Pt states no hx of HHC or SNF. Pt states no concerns with going home at time of discharge. Pt is retired. Pt states does not smoke cigarettes or drink ETOH. Pt states no further concerns/needs. CM to follow for PT/OT evals and any further discharge planning/needs. Advised pt to ask for CM if any further questions/concerns/needs arise, voices understanding. ? Pt Goal: Home Plan: [place] RAQUEL RIOJAS
[2021-01-26] MEDS: Insulin Lispro 100 UNIT/ML INSULN.PEN SC ×3 (12:28→20:50)
[2021-01-26 12:35] LABS: Bedside Glucose 250 mg/dL (70-110)
--- NOTE | 2021-01-26 13:58 | CASEMGMT ---
SW met with patient, introduced self and role at [facility]. SW confirmed she would like to do Healthcare Power of Tax Agent and Healthcare Living Will. Documents completed with patient. Copies made and given to patient along with originals. A copy of each was also placed on patient's chart. Fabienne ARAGON
--- NOTE | 2021-01-26 14:01 | CASEMGMT ---
RAQUEL RIOJAS NOTE: PT/OT notes reviewed--additional therapy recommended. RAQUEL RIOJAS to room to discuss discharge planning. Pt made aware of therapies recommendations. Discussed options of HHC vs OP therapy. Pt states she is not sure yet which she would prefer and would like to talk w/RAQUEL RIOJAS again tomorrow about this, as she does not know how she will feel by the time is she is discharged. She has been to [facility] in the past and states would most likely go there if she does do OP therapy. Tali MOOREN RAQUEL CM
--- NOTE | 2021-01-26 14:18 | PN.HOSP_ITS ---
Documented by User: Jah TAM 01/26/21 14:30 Subjective Subjective Patient is a 65-year-old female comfortably resting in bed, alert and oriented x3. Patient reports no change or progression of her weakness from admission. Denies chest pain, shortness of breath, palpitations, sputum production, fever, chills, N/V/D. Objective Data Objective Data Vital Signs: Vital Signs Temp Pulse Resp BP Pulse Ox 97.4 F L 76 24 H 118/64 89 01/26/21 12:00 01/26/21 12:00 01/26/21 12:00 01/26/21 12:00 01/26/21 12:26 Oxygen Flow Rate (L/min) 2 Oxygen Delivery Method Room Air Weight: 289 lb 0.416 oz Body Mass Index (BMI) 46.3 Intake & Output: Intake and Output for Last 24 Hours 01/24/21 01/25/21 01/26/21 23:59 23:59 23:59 Intake Total 1288.25 / 1303.25 561.92 / 561.92 Output Total 250 / 250 Balance 1288.25 / 1303.25 311.92 / 311.92 Lab / Micro Data Result Diagrams: 01/26/21 01:55 01/26/21 01:55 Labs: Laboratory Results - last 24 hr 01/25/21 01/25/21 01/25/21 16:24 16:24 16:24 WBC 8.8 RBC 4.47 Hgb 11.5 L Hct 36.8 L MCV 82.3 MCH 25.7 L MCHC 31.3 L RDW Std Deviation 42.7 RDW Coeff of Rocio 14.3 Plt Count 313 MPV 11.1 Immature Gran % (Auto) 0.200 Neut % (Auto) 76.4 H Lymph % (Auto) 15.8 L Rankin % (Auto) 6.3 Eos % (Auto) 0.8 Baso % (Auto) 0.5 Absolute Neuts (auto) 6.7 Absolute Lymphs (auto) 1.39 Nucleated RBC % 0 PT 15.2 H INR 1.3 APTT 34.1 Sodium 139 Potassium 3.7 Chloride 108 H Carbon Dioxide 24.0 Anion Gap 7 BUN 17 Creatinine 1.10 H Estim Creat Clear Calc 46.46 Est GFR (MDRD) Af Amer 64 Est GFR (MDRD) Non-Af 53 L BUN/Creatinine Ratio 15.5 Glucose 166 H Calcium 9.0 Magnesium Total Bilirubin AST ALT Alkaline Phosphatase Troponin I < 0.015 B-Natriuretic Peptide Total Protein Albumin Globulin Albumin/Globulin Ratio Triglycerides Cholesterol LDL Cholesterol VLDL Cholesterol HDL Cholesterol TSH POC Glucose 01/25/21 01/25/21 01/25/21 16:24 19:55 19:55 WBC RBC Hgb Hct MCV MCH MCHC RDW Std Deviation RDW Coeff of Rocio Plt Count MPV Immature Gran % (Auto) Neut % (Auto) Lymph % (Auto) Rankin % (Auto) Eos % (Auto) Baso % (Auto) Absolute Neuts (auto) Absolute Lymphs (auto) Nucleated RBC % PT INR APTT Sodium Potassium Chloride Carbon Dioxide Anion Gap BUN Creatinine Estim Creat Clear Calc Est GFR (MDRD) Af Amer Est GFR (MDRD) Non-Af BUN/Creatinine Ratio Glucose Calcium Magnesium 1.6 Total Bilirubin AST ALT Alkaline Phosphatase Troponin I < 0.015 B-Natriuretic Peptide 197.4 H Total Protein Albumin Globulin Albumin/Globulin Ratio Triglycerides Cholesterol LDL Cholesterol VLDL Cholesterol HDL Cholesterol TSH 2.42 POC Glucose 01/25/21 01/26/21 01/26/21 20:13 01:55 01:55 WBC 8.4 RBC 4.51 Hgb 11.6 L Hct 37.7 MCV 83.6 MCH 25.7 L MCHC 30.8 L RDW Std Deviation 43.1 RDW Coeff of Rocio 14.2 Plt Count 315 MPV 11.1 Immature Gran % (Auto) 0.500 Neut % (Auto) 69.2 Lymph % (Auto) 21.7 Rankin % (Auto) 7.0 Eos % (Auto) 1.1 Baso % (Auto) 0.5 Absolute Neuts (auto) 5.8 Absolute Lymphs (auto) 1.82 Nucleated RBC % 0 PT INR APTT Sodium 141 Potassium 3.2 L Chloride 109 H Carbon Dioxide 26.0 Anion Gap 6 BUN 18 Creatinine 1.09 H Estim Creat Clear Calc 46.89 Est GFR (MDRD) Af Amer 64 Est GFR (MDRD) Non-Af 53 L BUN/Creatinine Ratio 16.5 Glucose 191 H Calcium 8.8 Magnesium Total Bilirubin 0.70 AST 21 ALT 30 Alkaline Phosphatase 100 Troponin I B-Natriuretic Peptide Total Protein 7.5 Albumin 3.3 Globulin 4.2 Albumin/Globulin Ratio 0.8 L Triglycerides 81 Cholesterol 129 LDL Cholesterol 54 VLDL Cholesterol 16 HDL Cholesterol 59 TSH POC Glucose 143 H 01/26/21 01/26/21 01/26/21 01:55 06:28 12:27 WBC RBC Hgb Hct MCV MCH MCHC RDW Std Deviation RDW Coeff of Rocio Plt Count MPV Immature Gran % (Auto) Neut % (Auto) Lymph % (Auto) Rankin % (Auto) Eos % (Auto) Baso % (Auto) Absolute Neuts (auto) Absolute Lymphs (auto) Nucleated RBC % PT INR APTT Sodium Potassium Chloride Carbon Dioxide Anion Gap BUN Creatinine Estim Creat Clear Calc Est GFR (MDRD) Af Amer Est GFR (MDRD) Non-Af BUN/Creatinine Ratio Glucose Calcium Magnesium Total Bilirubin AST ALT Alkaline Phosphatase Troponin I < 0.015 B-Natriuretic Peptide Total Protein Albumin Globulin Albumin/Globulin Ratio Triglycerides Cholesterol LDL Cholesterol VLDL Cholesterol HDL Cholesterol TSH POC Glucose 137 H 250 H Radiography Diagnostic Testing: Radiology Impression Chest X-Ray 01/25/21 16:27 IMPRESSION: Findings consistent with mild congestive failure and small bilateral pleural effusions. Electronically Signed: Ken Urbano MD at 16:49 EDT , Service support , Echocardiogram 01/25/21 18:44 Interpretation Summary The study was technically difficult. Contrast injection was performed. Borderline enlarged left ventricle. Moderate global left ventricular systolic dysfunction. The estimated ejection fraction is 35 %. The left atrium is mildly enlarged. There is mild mitral annular calcification. Extension of the mitral annular calcification on the base of the posterior mitral valve leaflet. Mild (1+) mitral valve insufficiency. Mild tricuspid valve insufficiency. Trivial pulmonic valve insufficiency. Borderline enlarged aortic root. Right ventricular systolic pressure estimated to be 66 mmHg c/w pulmonary hypertension. Unable to assess diastolic dysfunction. Ordering Physician: Reema Anderson Referring Physician: MAXIM JIMENEZ Performed By: Ariane Chowdary, RDCS, RVT Physical Exam Narrative See subjective. Const alert, oriented x3 and no apparent distress HEENT head/scalp atraumatic, moist oral mucous membranes and oropharynx normal Head and Scalp: normocephalic Eyes PERRL, EOMs intact bilaterally and conjunctivae normal Neck no lymphadenopathy, supple and no JVD Resp normal respiratory effort, no retractions, no use of accessory muscles and clear to auscultation bilaterally Cardio regular rate, regular rhythm, no murmurs and no JVD GI normal to inspection, nondistended, normoactive bowel sounds, soft to palpation and non-tender Extremity normal to inspection, full ROM and no clubbing, cyanosis or edema Skin no rashes or lesions noted, no wounds and skin turgor normal Neuro CN's II-XII intact bilaterally Psych affect normal Assessment & Plan Assessment/Plan (1) Atrial fibrillation with rapid ventricular response: (2) CHF (congestive heart failure): QUALIFIERS: Heart failure chronicity: acute Heart failure type: unspecified Qualified Code(s): I50.9 - Heart failure, unspecified (3) Hypertension: QUALIFIERS: Hypertension type: essential hypertension Qualified Code(s): I10 - Essential (primary) hypertension (4) High cholesterol: (5) Diabetes: (6) GERD (gastroesophageal reflux disease): PLAN: 1) A-Fib w/ RVR [id number] score 5. On carvedilol 3.125 p.o. twice daily at home. Cardizem drip currently infusing. TSH unremarkable. Cardiology following. Plan; continue Cardizem infusion and carvedilol. Transition to oral anticoagulation at discharge. 2) CHF Echocardiogram on 01/26/2021 demonstrated enlarged left ventricle, moderate left ventricular systolic dysfunction, an estimated EF of 35%, RVSP of 66 mmHg. Diastolic function unable to be assessed. Patient unsure if she has had echocardiogram in the past, none available in medical records. On carvedilol 3.125 p.o. twice daily at home. Allergic to lisinopril, not currently on Lasix at home. Cardiology following. Plan; continue carvedilol and Lasix, cardiology following, daily weights, monitor I&O's. 3) HTN Continue felodipine and carvedilol. 4) hypercholesterolemia Lipids within normal limits. Continue simvastatin. 5) DM 2 Continue home Lantus and glimepiride. 6) GERD Continue pantoprazole. DVT prophylaxis - Lovenox SC Patient seen by Jah Fernandez PA-C, under the supervision of Dr. Ramirez. Documented by User: Dr. Dg Ramirez, 01/26/21 15:08 Objective Data Lab / Micro Data Result Diagrams: 01/26/21 01:55 01/26/21 01:55 Physical Exam Const alert and oriented x3 Resp normal respiratory effort and clear to auscultation bilaterally Cardio regular rate, S1 normal heart sound and S2 normal heart sound GI normal to inspection, nondistended, normoactive bowel sounds, non-tender and non-distended Extremity normal to inspection Assessment & Plan Assessment/Plan (1) Atrial fibrillation with rapid ventricular response: PLAN: 1. Atrial fibrillation with RVR * Currently rate controlled. * Echocardiogram showed an EF of 35% complicated by pulmonary hypertension with an RVSP of 66 mmHg * Discussed with Dr. Dawson, he recommends since she is rate controlled, to cut the rate down from 10-5. He is also okay with increasing the carvedilol from 3.125-6.25. Continue with diuresis as well. 2. Acute heart failure reduced ejection fraction * EF of 35%. Patient on IV furosemide. Visit Charges Inpatient E&M: 64014 Subs Hosp L2
[2021-01-26 17:30] LABS: Bedside Glucose 216 mg/dL (70-110)
[2021-01-26] MEDS: Carvedilol 6.25 MG Tablet PO (20:49)
[2021-01-26] MEDS: Atorvastatin Calcium 20 MG Tablet PO (20:49)
[2021-01-26] MEDS: Aspirin 325 MG Tablet PO (20:50)
[2021-01-26 21:01] LABS: Bedside Glucose 265 mg/dL (70-110)
[2021-01-27] VITALS (25 sets, daily range): BP systolic 104–149; BP diastolic 70–99; PULSE 75–122; RESP 17–27; TEMP 35.8–36.8; O2SAT 92–100
[2021-01-27 05:36] LABS: Absolute Lymphocyte Count 2.06 X10^3/uL (0.83-4.51); Absolute Neutrophil Count 3.7 X10^3/uL (2.0-7.7); Basophil# 0.03 X10^3/uL; Basophil% 0.5 % (0-1); Eosinophil# 0.11 X10^3/uL; Eosinophils% 1.7 % (0-5); Hematocrit 34.9 % (37-47); Hemoglobin 10.9 g/dL (12.0-15.0); Lymphocyte # 2.06 X10^3/ul (0.83-4.51); Lymphocyte % 32.3 % (19-41); Mean Corp Hgb Conc 31.2 g/dL (32-36); Mean Corpuscular Hgb 25.8 pg (27.0-32.0); Mean Corpuscular Volume 82.7 fL (81-99); Mean Platelet Vol. 11.4 fl (6.2-12.0); Monocyte# 0.49 X10^3/uL; Monocyte% 7.7 % (0-10); NRBC Flagged by Analyzer 0 % (0-5); Neutrophil # 3.67 X10^3/uL (2.7-7.7); Neutrophil % 57.6 % (47-70); Platelet Count 280 K/mm3 (150-450); RBC Distribution Width CV 14.2 % (11.6-14.6); RBC Distribution Width SD 42.5 fl (35.1-43.9); Red Blood Count 4.22 M/mm3 (4.2-5.4); White Blood Count 6.4 K/mm3 (4.4-11.0)
--- NOTE | 2021-01-27 05:55 | EKG12_ITS ---
Test Reason : AM EKG Blood Pressure : / mmHG Vent. Rate : 082 BPM Atrial Rate : 107 BPM P-R Int : 000 ms QRS Dur : 090 ms QT Int : 390 ms P-R-T Axes : 000 027 046 degrees QTc Int : 455 ms Atrial fibrillation Nonspecific T wave abnormality Abnormal ECG Confirmed by JOSEPH GUERRERO, MELIDA ([id number]), newspaper photo editor DWAYNE ESTEVES ([id number]) on 01/31/2021 2:02:52 PM Referred By: KAVON Confirmed By:MELIDA RUIZ MD
[2021-01-27 06:05] LABS: Anion Gap 9 (5-15); BUN 19 mg/dL (7-18); BUN/Creat Ratio 17.9 RATIO (10-20); Calcium,Total 8.8 mg/dL (8.5-10.1); Chloride 110 mmol/L (98-107); Creatinine, Serum 1.06 mg/dL (0.55-1.02); EST Glomerular Filtration Rate 55 mL/min (>60); Est Glom Filt Rate - Afr Amer 66 mL/min (>60); Estimated Creatinine Clearance 48.21 ml/min; Glucose 161 mg/dL (74-106); Magnesium 1.9 mg/dL (1.6-2.6); Potassium 3.6 mmol/L (3.5-5.1); Sodium Level 142 mmol/L (136-145)
[2021-01-27] MEDS: Aspirin 81 MG TAB.CHEW PO (06:20)
[2021-01-27] MEDS: Carvedilol 6.25 MG Tablet PO ×2 (06:20→22:36)
[2021-01-27 06:36] LABS: Bedside Glucose 124 mg/dL (70-110)
--- NOTE | 2021-01-27 08:19 | CASEMGMT ---
Insurance review for hospitals In-network with??[employer] M[employer] HMO? Insurance if transfer is recommended is as follows: [facility], [place], [place], [facility], [facility], [facility]), and . Tali BSN RN CM
[2021-01-27 09:16] LABS: Blood Gas Specimen Type VEN; VBG BASE EXCESS 0 mmol/L (-1.0-3.5); VBG Bicarbonate 25 mmol/L (22-26); VBG PO2 30 mmHg (25-40); VBG SO2 56 % (50-70); VBG TCO2 26 mmol/L (23-33); VBG pCO2 40.7 mmHg (41-51)
[2021-01-27 09:20] LABS: Base Excess -2 mmol/L (-2 to +2); Blood Gas Specimen Type ART; PO2 52 mmHG (75-100); SO2 86 % (95-99); Total Carbon Dioxide 24 mmol/L; pCO2 38.6 mmHg (35-45); pH 7.38 (7.35-7.45)
[2021-01-27 09:30] LABS: Blood Gas Specimen Type VEN; VBG BASE EXCESS 0 mmol/L (-1.0-3.5); VBG Bicarbonate 25 mmol/L (22-26); VBG PO2 28 mmHg (25-40); VBG SO2 51 % (50-70); VBG TCO2 27 mmol/L (23-33); VBG pCO2 42.6 mmHg (41-51); VBG pH 7.38 (7.32-7.42)
--- NOTE | 2021-01-27 10:02 | CL.D_ITS ---
Patient Name: FORTINO MONTES Study Date: 01/27/2021 Performing: Martínez Dawson MD Ht: 66.14 inches 168 cm : 1955 Wt: 288.81 lbs 131 kg Age: 65 Gender: female BSA: 2.34 PROCEDURE(S) PERFORMED [id number]/LHC/COR/LV CLINICAL PROFILE AND INDICATIONS Indications: Cardiac Arrythmia, Cardiomyopathy, LV Dysfunction Heart Failure: NYHA Class: 3, Newly Diagnosed: Yes, Heart Failure Type: Systolic Stress/Imaging Stress/Image Study Performed: No Angina Classification Anginal Classification w/in 2 Weeks: Anginal Equivalent Dyspnea CAD Presentations: Other: dyspnea on exertion CONCLUSIONS Right heart pressures - severely elevated The patient has pulmonary hypertension which is severe. Intracardiac shunting: None Elevated Left Ventricular End Diastolic Pressure Global LV systolic dysfunction- Severe LVEF: by LV gram 25 % Mitral Valve Insufficiency Mild RECOMMENDATIONS Risk factor modification Medical therapy DESCRIPTION OF PROCEDURE The patient arrived to the procedure lab. The risks and benefits of the procedure as well as a full d escription of our services here and current unavailability of surgical backup were fully explained to the patient and/or their significant other prior to the catheterization. The Timeout was completed, verifying the correct patient and procedure. The patient's procedural site was prepped and draped in the usual fashion. Local anesthetic was given subcutaneously to right radial region with Lidocaine 2% . Using a modified Seldinger technique, arterial access was obtained via the right radial artery, a 6 Fr sheath was inserted. A 7Fr thermal dilution catheter was inserted and right heart pressures were recorded, it was then advanced to PA position for cardiac outputs. O2 saturations were then obtained. Left Ventriculography was performed in NASH projection using a 5 Fr. Pigtail catheter. Simultaneous p ressures were then recorded. LV to AO pullback pressures were then recorded. The Thermal dilution catheter was then removed. Left Coronary Artery selective angiography was performed in multi ple views using a 5 Fr. 4.0 [place] catheter. Right Coronary Artery selective angiography was then perf ormed in multiple views using a 5 Fr. 4.0 [place] catheter.The arterial sheath was pulled and a TR Band was applied for hemostasis. The venous sheath was then pulled and manual compression applied until h emostasis achieved CORONARY ANGIOGRAPHY DOMINANCE: Right Dominant LEFT HEART ASSESSMENT Left Ventricular Ejection Fraction: by LV Gram 25 % Global Hypokinesis Elevated Left Ventricular End Diastolic Pressure LVEDP: 16 mmHg RIGHT HEART ASSESSMENT Thermal CO: 5.09 Thermal CI: 2.18 Angy CO: 7 Angy CI: 2.99 PW: /39 31 PA: 57/25 38 RV: 48/11 15 RA: /15 14 PVR: 110 SVR: 1399 Right Heart pressures - elevated Pulmonary Hypertension Severe Intracardiac shunting: None LEFT MAIN: Angiographically normal LEFT ANTERIOR DESCENDING ARTERY: PROX LAD: Mild luminal irregularities CIRCUMFLEX ARTERY: Angiographically normal RIGHT CORONARY ARTERY: Mild luminal irregularities VALVE FINDINGS: Mitral Valve Insufficiency - Grade 1 AORTIC ROOT: Angiographically normal COMPLICATIONS PROCEDURE MEDICATIONS Fentanyl 50 mcg IV Versed 1 mg IV Oxygen: 2 L/min via nasal cannula SUMMARY OF HEMODYNAMIC DATA Time AIR REST ECG 08:37:56 RA /15 (14) SV 09:11:01 RV 48/11, 15 09:11:21 PA 57/25 (38) PA 09:12:08 PW /39 (31) PV 09:13:19 LV 134/-1, 15 09:22:59 LV 132/1, 16 09:23:06 LV 135/1, 19 09:23:34 PW /45 (35) 09:23:34 LV 137/6, 24 09:25:40 PW /51 (41) 09:25:40 LV 140/4, 20 09:26:20 LVp 139/4, 22 09:26:24 AOp 138/77 (103) 09:26:29 AO 140/79 (103) SA 09:26:34 PA 56/28 (40) 09:26:53 RV 56/12, 18 09:27:07 RA /19 (17) 09:27:20 AO 140/80 (105) 09:27:44 Type SV CO (l/m) CI (l/m/ HR Time AIR REST Thermal 50.40 5.09 2.18 101 08:37:56 Angy 69.30 7.00 2.99 101 08:37:56 Label % O2 Pres/Loc Time AIR REST SVC 51 09:47:52 PA 56 PA 09:48:06 AO 86 PV 09:48:18 RA 56 SV 09:48:29 Signed By Martínez Dawson MD On 01/27/2021 10:01:20 Martínez Dawson MD
[2021-01-27] MEDS: 0.9% Normal Saline 1,000 ML 50 ML IV (11:02)
[2021-01-27] MEDS: Pantoprazole Sodium 20 MG Tablet PO (11:06)
[2021-01-27] MEDS: Isosorbide Mononitrate 30 MG Tablet PO (11:06)
[2021-01-27] MEDS: Multivitamins,Therapeutic Tablet 1 TABLET PO (11:06)
[2021-01-27] MEDS: Glimepiride 4 MG Tablet PO ×2 (11:06→17:23)
[2021-01-27] MEDS: Furosemide 40 MG/4 ML Vial IV ×2 (11:07→11:15)
[2021-01-27 11:28] LABS: Absolute Lymphocyte Count 1.27 X10^3/uL (0.83-4.51); Absolute Neutrophil Count 4.2 X10^3/uL (2.0-7.7); Basophil# 0.02 X10^3/uL; Basophil% 0.3 % (0-1); Eosinophil# 0.09 X10^3/uL; Eosinophils% 1.5 % (0-5); Hemoglobin 10.7 g/dL (12.0-15.0); Lymphocyte # 1.27 X10^3/ul (0.83-4.51); Lymphocyte % 21.2 % (19-41); Mean Corp Hgb Conc 30.6 g/dL (32-36); Mean Corpuscular Hgb 25.3 pg (27.0-32.0); Mean Corpuscular Volume 82.7 fL (81-99); Monocyte# 0.37 X10^3/uL; Monocyte% 6.2 % (0-10); NRBC Flagged by Analyzer 0 % (0-5); Neutrophil # 4.22 X10^3/uL (2.7-7.7); Neutrophil % 70.5 % (47-70); Platelet Count 285 K/mm3 (150-450); RBC Distribution Width CV 14.2 % (11.6-14.6); RBC Distribution Width SD 42.6 fl (35.1-43.9); Red Blood Count 4.23 M/mm3 (4.2-5.4)
[2021-01-27 11:40] LABS: Bedside Glucose 135 mg/dL (70-110)
--- NOTE | 2021-01-27 13:08 | PN.HOSP_ITS ---
Documented by User: Jah TAM 01/27/21 13:27 Subjective Subjective Patient is a 65-year-old female comfortably resting in chair, alert and orient x3. Patient reports that she is recovering well after her catheterization and was instructed not to use her right arm by the catheterization staff. Denies chest pain, shortness of breath, palpitations, fever, chills, N/V/D. Objective Data Objective Data Vital Signs: Vital Signs Temp Pulse Resp BP Pulse Ox 97.1 F L 99 18 134/85 H 99 01/27/21 11:28 01/27/21 11:28 01/27/21 11:28 01/27/21 11:28 01/27/21 11:28 Oxygen Flow Rate (L/min) 5 Oxygen Delivery Method Room Air Weight: 287 lb 6.4 oz Body Mass Index (BMI) 46.3 Intake & Output: Intake and Output for Last 24 Hours 01/25/21 01/26/21 01/27/21 23:59 23:59 23:59 Intake Total 1288.25 / 1303.25 873.17 / 978.17 157.50 / 157.50 Output Total 550 / 550 Balance 1288.25 / 1303.25 323.17 / 428.17 157.50 / 157.50 Lab / Micro Data Result Diagrams: 01/27/21 10:56 01/27/21 05:08 Labs: Laboratory Results - last 24 hr 01/26/21 01/26/21 01/27/21 17:19 20:47 05:08 WBC RBC Hgb Hct MCV MCH MCHC RDW Std Deviation RDW Coeff of Rocio Plt Count MPV Immature Gran % (Auto) Neut % (Auto) Lymph % (Auto) [place] % (Auto) Eos % (Auto) Baso % (Auto) Absolute Neuts (auto) Absolute Lymphs (auto) Nucleated RBC % Sodium 142 Potassium 3.6 Chloride 110 H Carbon Dioxide 23.0 Anion Gap 9 BUN 19 H Creatinine 1.06 H Estim Creat Clear Calc 48.21 Est GFR (MDRD) Af Amer 66 Est GFR (MDRD) Non-Af 55 L BUN/Creatinine Ratio 17.9 Glucose 161 H Calcium 8.8 Magnesium 1.9 POC Glucose 216 H 265 H 01/27/21 01/27/21 01/27/21 05:08 06:19 10:56 WBC 6.4 6.0 RBC 4.22 4.23 Hgb 10.9 L 10.7 L Hct 34.9 L 35.0 L MCV 82.7 82.7 MCH 25.8 L 25.3 L MCHC 31.2 L 30.6 L RDW Std Deviation 42.5 42.6 RDW Coeff of Rocio 14.2 14.2 Plt Count 280 285 MPV 11.4 11.0 Immature Gran % (Auto) 0.200 0.300 Neut % (Auto) 57.6 70.5 H Lymph % (Auto) 32.3 21.2 [place] % (Auto) 7.7 6.2 Eos % (Auto) 1.7 1.5 Baso % (Auto) 0.5 0.3 Absolute Neuts (auto) 3.7 4.2 Absolute Lymphs (auto) 2.06 1.27 Nucleated RBC % 0 0 Sodium Potassium Chloride Carbon Dioxide Anion Gap BUN Creatinine Estim Creat Clear Calc Est GFR (MDRD) Af Amer Est GFR (MDRD) Non-Af BUN/Creatinine Ratio Glucose Calcium Magnesium POC Glucose 124 H 01/27/21 11:35 WBC RBC Hgb Hct MCV MCH MCHC RDW Std Deviation RDW Coeff of Rocio Plt Count MPV Immature Gran % (Auto) Neut % (Auto) Lymph % (Auto) [place] % (Auto) Eos % (Auto) Baso % (Auto) Absolute Neuts (auto) Absolute Lymphs (auto) Nucleated RBC % Sodium Potassium Chloride Carbon Dioxide Anion Gap BUN Creatinine Estim Creat Clear Calc Est GFR (MDRD) Af Amer Est GFR (MDRD) Non-Af BUN/Creatinine Ratio Glucose Calcium Magnesium POC Glucose 135 H ABG Data ABG results: ABG 01/27/21 01/27/21 01/27/21 09:11 09:17 09:28 Specimen Type LM ART LM pH 7.38 Bicarbonate Actual 23.0 Total CO2 24 Base Excess -2 O2 Saturation 86 L ABG pCO2 38.6 ABG pO2 52 L VBG pH 7.40 7.38 VBG pO2 30 28 VBG HCO3 25 25 VBG Total CO2 26 27 VBG O2 Sat (Calc) 56 51 VBG Base Excess 0 0 POC Mix VBG pCO2 Pt Tmp 40.7 L 42.6 Physical Exam Const alert, oriented x3 and no apparent distress HEENT head/scalp atraumatic, moist oral mucous membranes and dentition normal Head and Scalp: normocephalic Eyes PERRL, EOMs intact bilaterally and conjunctivae normal Neck no lymphadenopathy, supple and no JVD Resp normal respiratory effort, no use of accessory muscles and clear to auscultation bilaterally Cardio regular rate, regular rhythm, no murmurs and no JVD GI normal to inspection, nondistended, normoactive bowel sounds, soft to palpation and non-tender Extremity Extremity Narrative: Edema about the lower extremities bilaterally. General Extremity: edema Skin no rashes or lesions noted, no wounds and skin turgor normal Neuro CN's II-XII intact bilaterally Psych affect normal Assessment & Plan Assessment/Plan (1) CHF (congestive heart failure): QUALIFIERS: Heart failure chronicity: acute Heart failure type: unspecified Qualified Code(s): I50.9 - Heart failure, unspecified (2) Atrial fibrillation with rapid ventricular response: (3) GERD (gastroesophageal reflux disease): (4) High cholesterol: (5) Hypertension: QUALIFIERS: Hypertension type: essential hypertension Qualified Code(s): I10 - Essential (primary) hypertension (6) Diabetes: (7) History of left heart catheterization (LHC): PLAN: 1) A-Fib w/ RVR Cardizem and Lovenox complete/discontinued. Cardiology following. Plan; carvedilol increased to 6.25 mg, Eliquis initiated, digoxin initiated and amiodarone initiated, TTE in a.m, follow-up with cardiology as an outpatient after discharge. 2) systolic CHF Cardiac catheterization on 01/27/2021 demonstrated severely elevated right heart pressures, severe pulmonary hypertension elevated LV end-diastolic pressure, global left ventricular systolic dysfunction and an LVEF of 25%. Echocardiogram on 01/26/2021 demonstrated enlarged left ventricle, moderate left ventricular systolic dysfunction, an estimated EF of 35%, RVSP of 66 mmHg. Diastolic function unable to be assessed. allergic to lisinopril, not currently on Lasix at home. Cardiology following. Plan; continue carvedilol, Lasix, digoxin, Imdur and hydralazine. Follow-up with cardiology as an outpatient after discharge. 3) HTN Continue felodipine and carvedilol. 4) hypercholesterolemia Lipids within normal limits. Continue simvastatin. 5) DM 2 Continue home Lantus and glimepiride. 6) GERD Continue pantoprazole. DVT prophylaxis - Eliquis Patient seen by Jah Fernandez PA-C, under the supervision of Dr. Ramirez. Documented by User: Dr. Dg Ramirez, 01/27/21 14:06 Objective Data Lab / Micro Data Result Diagrams: 01/27/21 10:56 01/27/21 05:08 Physical Exam Const alert Resp normal respiratory effort, no use of accessory muscles and clear to auscultation bilaterally Cardio regular rate, regular rhythm, S1 normal heart sound and S2 normal heart sound GI normal to inspection, nondistended, normoactive bowel sounds, non-tender and non-distended Extremity normal to inspection Assessment & Plan Assessment/Plan (1) Pulmonary hypertension assoc with unclear multi-factorial mechanisms: PLAN: Patient seen and examined independently. Data reviewed. I agree with the above note by the physician automotive service assistant. 1.? Atrial fibrillation with RVR * Currently rate controlled. * Echocardiogram showed an EF of 35% complicated by pulmonary hypertension with an RVSP of 66 mmHg * Discussed with Dr. Dawson, he recommends since she is rate controlled, to cut the rate down from 10-5.? He is also okay with increasing the carvedilol from 3.125-6.25.? Continue with diuresis as well. 2.? Acute heart failure reduced ejection fraction * EF of 35%.? Patient on IV furosemide. 3. Pulmonary HTN * 2/2 CHF v MORGAN. Cannot rule out PE Visit Charges Inpatient E&M: 45705 Subs Hosp L2
--- NOTE | 2021-01-27 13:09 | PCM.PN.CARD ---
Subjective Subjective The patient has undergone further noninvasive and invasive cardiovascular evaluation. Overall, at the present time, she has stated that she does believe her breathing has improved somewhat at rest. Objective Data Vital Signs: Vital Signs Temp Pulse Resp BP Pulse Ox 97.1 F L 99 18 134/85 H 99 01/27/21 11:28 01/27/21 11:28 01/27/21 11:28 01/27/21 11:28 01/27/21 11:28 Oxygen Flow Rate (L/min) 5 Oxygen Delivery Method Room Air Weight: 287 lb 6.4 oz Body Mass Index (BMI) 46.3 Intake & Output: Intake and Output for Last 24 Hours 01/25/21 01/26/21 01/27/21 23:59 23:59 23:59 Intake Total 1288.25 / 1303.25 873.17 / 978.17 157.50 / 157.50 Output Total 550 / 550 Balance 1288.25 / 1303.25 323.17 / 428.17 157.50 / 157.50 Lab / Micro Data Result Diagrams: 01/27/21 10:56 01/27/21 05:08 Labs: Laboratory Results - last 24 hr 01/26/21 01/26/21 01/27/21 17:19 20:47 05:08 WBC RBC Hgb Hct MCV MCH MCHC RDW Std Deviation RDW Coeff of Rocio Plt Count MPV Immature Gran % (Auto) Neut % (Auto) Lymph % (Auto) [place] % (Auto) Eos % (Auto) Baso % (Auto) Absolute Neuts (auto) Absolute Lymphs (auto) Nucleated RBC % Sodium 142 Potassium 3.6 Chloride 110 H Carbon Dioxide 23.0 Anion Gap 9 BUN 19 H Creatinine 1.06 H Estim Creat Clear Calc 48.21 Est GFR (MDRD) Af Amer 66 Est GFR (MDRD) Non-Af 55 L BUN/Creatinine Ratio 17.9 Glucose 161 H Calcium 8.8 Magnesium 1.9 POC Glucose 216 H 265 H 01/27/21 01/27/21 01/27/21 05:08 06:19 10:56 WBC 6.4 6.0 RBC 4.22 4.23 Hgb 10.9 L 10.7 L Hct 34.9 L 35.0 L MCV 82.7 82.7 MCH 25.8 L 25.3 L MCHC 31.2 L 30.6 L RDW Std Deviation 42.5 42.6 RDW Coeff of Rocio 14.2 14.2 Plt Count 280 285 MPV 11.4 11.0 Immature Gran % (Auto) 0.200 0.300 Neut % (Auto) 57.6 70.5 H Lymph % (Auto) 32.3 21.2 [place] % (Auto) 7.7 6.2 Eos % (Auto) 1.7 1.5 Baso % (Auto) 0.5 0.3 Absolute Neuts (auto) 3.7 4.2 Absolute Lymphs (auto) 2.06 1.27 Nucleated RBC % 0 0 Sodium Potassium Chloride Carbon Dioxide Anion Gap BUN Creatinine Estim Creat Clear Calc Est GFR (MDRD) Af Amer Est GFR (MDRD) Non-Af BUN/Creatinine Ratio Glucose Calcium Magnesium POC Glucose 124 H 01/27/21 11:35 WBC RBC Hgb Hct MCV MCH MCHC RDW Std Deviation RDW Coeff of Rocio Plt Count MPV Immature Gran % (Auto) Neut % (Auto) Lymph % (Auto) [place] % (Auto) Eos % (Auto) Baso % (Auto) Absolute Neuts (auto) Absolute Lymphs (auto) Nucleated RBC % Sodium Potassium Chloride Carbon Dioxide Anion Gap BUN Creatinine Estim Creat Clear Calc Est GFR (MDRD) Af Amer Est GFR (MDRD) Non-Af BUN/Creatinine Ratio Glucose Calcium Magnesium POC Glucose 135 H ABG Data ABG results: ABG 01/27/21 01/27/21 01/27/21 09:11 09:17 09:28 Specimen Type LM ART LM pH 7.38 Bicarbonate Actual 23.0 Total CO2 24 Base Excess -2 O2 Saturation 86 L ABG pCO2 38.6 ABG pO2 52 L VBG pH 7.40 7.38 VBG pO2 30 28 VBG HCO3 25 25 VBG Total CO2 26 27 VBG O2 Sat (Calc) 56 51 VBG Base Excess 0 0 POC Mix VBG pCO2 Pt Tmp 40.7 L 42.6 Cardiology Labs/Tests 01/27/21 05:08: Sodium 142, Potassium 3.6, Chloride 110 H, Carbon Dioxide 23.0, Anion Gap 9, BUN 19 H, Creatinine 1.06 H, Est GFR (MDRD) Af Amer 66, Est GFR (MDRD) Non-Af 55 L, BUN/Creatinine Ratio 17.9, Glucose 161 H, Calcium 8.8, Magnesium 1.9 01/27/21 05:08: WBC 6.4, RBC 4.22, Hgb 10.9 L, Hct 34.9 L, MCV 82.7, MCH 25.8 L, MCHC 31.2 L, Plt Count 280, MPV 11.4, Immature Gran % (Auto) 0.200, Neut % (Auto) 57.6, Lymph % (Auto) 32.3, [place] % (Auto) 7.7, Eos % (Auto) 1.7, Baso % (Auto) 0.5, Absolute Neuts (auto) 3.7, Nucleated RBC % 0 01/27/21 09:11: VBG pH 7.40, VBG pO2 30, VBG HCO3 25, VBG O2 Sat (Calc) 56, VBG Base Excess 0 01/27/21 09:17: pH 7.38, Bicarbonate Actual 23.0, Base Excess -2, O2 Saturation 86 L, ABG pCO2 38.6, ABG pO2 52 L 01/27/21 09:28: VBG pH 7.38, VBG pO2 28, VBG HCO3 25, VBG O2 Sat (Calc) 51, VBG Base Excess 0 01/27/21 10:56: WBC 6.0, RBC 4.23, Hgb 10.7 L, Hct 35.0 L, MCV 82.7, MCH 25.3 L, MCHC 30.6 L, Plt Count 285, MPV 11.0, Immature Gran % (Auto) 0.300, Neut % (Auto) 70.5 H, Lymph % (Auto) 21.2, [place] % (Auto) 6.2, Eos % (Auto) 1.5, Baso % (Auto) 0.3, Absolute Neuts (auto) 4.2, Nucleated RBC % 0 Rhythm: Atrial fibrillation EKG: Atrial fibrillation; nonspecific T wave abnormality ECHO: Interpretation Summary The study was technically difficult. Contrast injection was performed. ? Borderline enlarged left ventricle. Moderate global left ventricular systolic dysfunction. The estimated ejection fraction is 35 %. The left atrium is mildly enlarged. There is mild mitral annular calcification. Extension of the mitral annular calcification on the base of the posterior mitral valve leaflet. Mild (1+) mitral valve insufficiency. Mild tricuspid valve insufficiency. Trivial pulmonic valve insufficiency. Borderline enlarged aortic root. Right ventricular systolic pressure estimated to be 66 mmHg c/w pulmonary hypertension. Unable to assess diastolic dysfunction. Cardiac Cath: CONCLUSIONS Right heart pressures? - severely elevated The patient has pulmonary hypertension which is severe. Intracardiac shunting: None Elevated Left Ventricular End Diastolic Pressure Global LV systolic dysfunction- Severe LVEF: by LV gram 25 % Mitral Valve Insufficiency Mild RECOMMENDATIONS Risk factor modification Medical therapy DESCRIPTION OF? PROCEDURE The patient arrived to the procedure lab. The risks and benefits of the procedure as well as a full description of our services here and current unavailability of surgical backup were fully explained to the patient and/or their significant other prior to the catheterization. The Timeout was completed, verifying the correct patient and procedure. The patient's procedural site was prepped and draped in the usual fashion. Local anesthetic was given subcutaneously to right radial region with Lidocaine 2%. Using a modified Seldinger technique, arterial access was obtained via the right radial artery, a 6Fr sheath was inserted.? A 7Fr thermal dilution catheter was inserted and right heart pressures were recorded, it was then advanced to PA position for cardiac outputs. O2 saturations were then obtained. Left Ventriculography was performed in NASH projection using a 5 Fr. Pigtail catheter. Simultaneous pressures were then recorded. LV to AO pullback pressures were then recorded. The Thermal dilution catheter was then removed. Left Coronary Artery selective angiography was performed in multiple views using a 5 Fr. 4.0 [place] catheter. Right Coronary Artery selective angiography was then performed in multiple views using a 5 Fr. 4.0 [place] catheter.The arterial sheath was pulled and a TR Band was applied for hemostasis. The venous sheath was then pulled and manual compression applied until hemostasis achieved CORONARY ANGIOGRAPHY DOMINANCE:? Right Dominant LEFT HEART ASSESSMENT Left Ventricular Ejection Fraction: by LV Gram 25 % Global Hypokinesis Elevated Left Ventricular End Diastolic Pressure LVEDP: 16 mmHg RIGHT HEART ASSESSMENT Thermal CO: 5.09? Thermal CI: 2.18 Angy CO: 7? Nagy CI: 2.99 PW: /39? 31 PA: 57/25? 38 RV: 48/11? 15 RA: /15? 14 PVR: 110? SVR: 1399 Right Heart pressures - elevated Pulmonary Hypertension Severe Intracardiac shunting: None LEFT MAIN: Angiographically normal LEFT ANTERIOR DESCENDING ARTERY: PROX LAD: Mild luminal irregularities CIRCUMFLEX ARTERY: Angiographically normal RIGHT CORONARY ARTERY: Mild luminal irregularities VALVE FINDINGS: Mitral Valve Insufficiency - Grade 1 AORTIC ROOT: Angiographically normal Physical Exam Const alert and oriented x3 Orientation / Consciousness: awake HEENT normocephalic, head/scalp atraumatic and hearing grossly normal bilaterally Eyes PERRL, EOMs intact bilaterally, conjunctivae normal and no scleral icterus Neck full ROM, supple and no JVD Chest inspection of chest normal Resp Auscultation: diminished lung sounds bilateral lower Cardio Rhythm: abnormal rhythm irregularly irregular Heart Sounds: S1 normal and S2 normal GI normal to inspection, nondistended, normoactive bowel sounds Extremity General Extremity: edema bilateral lower extremity Details: severe Skin no rashes or lesions noted Neuro oriented x3 and moves all extremities Psych mental status grossly normal Assessment & Plan Assessment/Plan (1) Cardiomyopathy: QUALIFIERS: Cardiomyopathy type: dilated Qualified Code(s): I42.0 - Dilated cardiomyopathy PLAN: She has been diagnosed with an underlying non-CAD related cardiomyopathy. It is unclear whether this could be a tachycardic induced cardiomyopathy from her atrial fibrillation. At the moment she will need continued medical management. This will include a combination of agents such as nitrates, beta-blockers, diuretics, afterload reducing agents, etc. It will also include continued evaluation care of her atrial dysrhythmia. If over time despite her ongoing medical management her LV systolic function does not improve then she will need to be considered for primary prevention ICD therapy. (2) CHF (congestive heart failure): QUALIFIERS: Heart failure chronicity: acute Heart failure type: unspecified Qualified Code(s): I50.9 - Heart failure, unspecified PLAN: She was diagnosed with CHF. Noninvasive and invasive studies this appears to be systolic mediated. This also appears to be non-CAD related. She will continue with combined medical management. (3) Atrial fibrillation with rapid ventricular response: PLAN: The patient presents with atrial fibrillation with RVR. The etiology may be multifactorial secondary to combination of age, hypertension, MORGAN, as well as other conditions yet to be defined. At the moment she is being monitored. She has been treated medically with rate control therapy. She will initiate antiarrhythmic therapy with the hopes of helping to regain and/or maintain sinus rhythm. She will initiate oral anticoagulant therapy. Also, at some point in time, she may need to be considered for an attempt at regaining sinus rhythm with synchronized biphasic DC cardioversion. (4) CAD (coronary artery disease): QUALIFIERS: Coronary Disease-Associated Artery/Lesion type: [place] artery [place] vs. transplanted heart: [place] heart Associated angina: without angina Qualified Code(s): I25.10 - Atherosclerotic heart disease of [place] coronary artery without angina pectoris PLAN: She was found to have CAD-mild luminal irregularities-nonangiographically significant and not thought to be the etiology of her cardiomyopathy. At the moment she will need to continue risk factor evaluation care as deemed appropriate. (5) High cholesterol: PLAN: She does have a history of hyperlipidemia. She should continue lipid-lowering therapy as deemed appropriate. (6) Hypertension: QUALIFIERS: Hypertension type: essential hypertension Qualified Code(s): I10 - Essential (primary) hypertension PLAN: She does have a history of hypertension. She can continue medical management with adjustment as deemed appropriate around her other cardiovascular and comorbidities. Of note, depending upon her clinical course, if there is any concern that her dihydropyridine inhibitor (felodipine) is contributing to any of her lower extremity edema than it may need to be decreased and/or discontinued. (7) MORGAN (obstructive sleep apnea): PLAN: She does have a history of MORGAN. She has been evaluated and cared for by Dr. Robles. She was encouraged to continue her care for this as this may be beneficial for her atrial dysrhythmia, hypertension, pulmonary hypertension, etc. (8) Pulmonary hypertension assoc with unclear multi-factorial mechanisms: PLAN: She does have findings compatible with significant pulmonary hypertension. Her pulmonary hypertension may be compatible with her underlying obstructive sleep apnea. Component of elevated pulmonary pressures secondary to her left ventricular systolic dysfunction may not necessarily be completely excluded. The moment she will need to continue medical therapy for her cardiopulmonary conditions as best as possible. (9) Diabetes: PLAN: She will continue evaluation care per internal medicine. Addt'l Comments The patient's case was discussed and reviewed with the patient and both her sons present and the aforementioned information was conveyed to Dr. Ramirez of the [facility] staff. Thank you for allowing me to participate in the care of your patient. This note was generated using a voice recognition system and there may be incorrect words, spelling or punctuation that were not noted when reviewing the office note prior to saving.
[2021-01-27] MEDS: Digoxin 250 MCG/ML Ampul 500 MCG IV (13:25)
--- NOTE | 2021-01-27 13:48 | CASEMGMT ---
RAQUEL RIOJAS NOTE: RAQUEL RIOJAS to room to discuss discharge planning further. Pt states she still is not sure if she wants HHC and does not want referral made at this time. She is aware to notify PCP to set up HHC if needed after hospital dc. She states she is interested in doing OP therapy. Script for OP therapy given to pt and she is aware she can take to a location of her choice. Also discussed CCN for new dx of CHF. Pt is interested in CCN and agreeable to a referral. Order placed for CCN. Message left w/Sean @ CCN re: referral. Pt denies need for DME and denies further questions or concerns at this time. Pt has O2 thru [employer] @ 2 L/M @ HS Only. She has only a concentrator. She does not have portable O2. Follow for any additional O2 needs @ d/c. Green Sheet on chart w/instructions for Home O2 set up, if pt qualifies. Tali LIND RN, CM
[2021-01-27] MEDS: hydrALAZINE 25 MG Tablet PO ×2 (14:33→22:35)
[2021-01-27] MEDS: Amiodarone 200 MG Tablet PO ×2 (14:34→22:36)
--- NOTE | 2021-01-27 15:56 | CASEMGMT ---
RAQUEL RIOJAS NOTE: Pt qualifies for a Palliative referral per the [facility] palliative screening tool at this time. Dr Ramirez aware and states ok for Palliative c/s at this time. Order placed. Palliative updated at this time. Face Sheet faxed to Palliative at this time. Tali LIND RN CM
[2021-01-27] MEDS: Insulin Lispro 100 UNIT/ML INSULN.PEN SC ×2 (17:27→22:35)
[2021-01-27 17:35] LABS: Bedside Glucose 178 mg/dL (70-110)
[2021-01-27] MEDS: APIXABAN 5 MG TABLET PO (22:35)
[2021-01-27] MEDS: Atorvastatin Calcium 20 MG Tablet PO (22:36)
[2021-01-27 23:15] LABS: Bedside Glucose 157 mg/dL (70-110)
[2021-01-28] VITALS (17 sets, daily range): BP systolic 104–146; BP diastolic 65–83; PULSE 86–118; RESP 14–18; TEMP 36.4–36.9; O2SAT 91–98
[2021-01-28 05:55] LABS: Absolute Lymphocyte Count 1.28 X10^3/uL (0.83-4.51); Absolute Neutrophil Count 3.5 X10^3/uL (2.0-7.7); Basophil# 0.03 X10^3/uL; Basophil% 0.6 % (0-1); Eosinophil# 0.13 X10^3/uL; Eosinophils% 2.4 % (0-5); Hematocrit 31.4 % (37-47); Hemoglobin 9.9 g/dL (12.0-15.0); Lymphocyte # 1.28 X10^3/ul (0.83-4.51); Lymphocyte % 23.8 % (19-41); Mean Corp Hgb Conc 31.5 g/dL (32-36); Mean Corpuscular Hgb 25.7 pg (27.0-32.0); Mean Corpuscular Volume 81.6 fL (81-99); Mean Platelet Vol. 11.8 fl (6.2-12.0); Monocyte# 0.46 X10^3/uL; Monocyte% 8.6 % (0-10); NRBC Flagged by Analyzer 0 % (0-5); Neutrophil # 3.47 X10^3/uL (2.7-7.7); Neutrophil % 64.4 % (47-70); Platelet Count 235 K/mm3 (150-450); RBC Distribution Width CV 14.4 % (11.6-14.6); RBC Distribution Width SD 42.5 fl (35.1-43.9); Red Blood Count 3.85 M/mm3 (4.2-5.4); White Blood Count 5.4 K/mm3 (4.4-11.0)
[2021-01-28 06:22] LABS: Anion Gap 5 (5-15); BUN 19 mg/dL (7-18); BUN/Creat Ratio 19.4 RATIO (10-20); Calcium,Total 8.5 mg/dL (8.5-10.1); Chloride 110 mmol/L (98-107); Creatinine, Serum 0.98 mg/dL (0.55-1.02); EST Glomerular Filtration Rate 60 mL/min (>60); Est Glom Filt Rate - Afr Amer 73 mL/min (>60); Estimated Creatinine Clearance 52.15 ml/min; Glucose 123 mg/dL (74-106); Potassium 3.4 mmol/L (3.5-5.1); Sodium Level 143 mmol/L (136-145)
[2021-01-28] MEDS: hydrALAZINE 25 MG Tablet PO ×3 (06:36→21:50)
[2021-01-28] MEDS: Amiodarone 200 MG Tablet PO ×3 (06:37→21:53)
[2021-01-28 06:45] LABS: Bedside Glucose 124 mg/dL (70-110)
--- NOTE | 2021-01-28 08:57 | PCM.DC ---
Discharge Instructions Diet Discharge Diet: 2000 mg Sodium Diet and - (1.5 liter fluid maximum/day) Activity Discharge Activity: Return to Normal Activity Dressing / Incision Call your doctor if you observe: Shortness of breath and Chest pain Follow Up Care Test Results: Test results from this visit will be discussed in further detail at your follow-up appointment, if applicable. Discharge Plan Admission Admit Date/Time: 01/25/21 17:56 Attending Provider: Dg Ramirez Primary Care Provider: Emperatriz Sepulveda Consulting Providers: Martínez Dawson Instructions Patient Instructions: Heart Failure: Tracking Your Weight, Heart Failure: Making Changes to Your Diet, Heart Failure: Evaluating Your Heart, Heart Failure: Medications to Help Your Heart, Heart Failure Discharge Orders/Prescriptions Prescriptions: No Action simvastatin 40 MG tablet 40 mg PO QHS RF: 0 carvedilol 3.125 MG tablet 3.125 mg PO BID RF: 0 glimepiride 4 MG tablet 4 mg PO BIDCM RF: 0 omeprazole 20 MG capsule,delayed release(DR/EC) 20 mg PO DAILY RF: 0 felodipine 10 MG tablet extended release 24 hr 20 mg PO DAILY RF: 0 insulin glargine 100 UNIT/ML insulin pen 22 unit SQ QHS RF: 0 multivitamin Tablet 1 tab PO DAILY RF: 0 cranberry 450 mg Tablet 900 mg PO BID RF: 0 Referrals / Follow Up: Emperatriz Sepulveda MD [Primary Care Provider] -
[2021-01-28] MEDS: APIXABAN 5 MG TABLET PO ×2 (09:36→21:50)
[2021-01-28] MEDS: Isosorbide Mononitrate 30 MG Tablet PO (09:37)
[2021-01-28] MEDS: Glimepiride 4 MG Tablet PO ×2 (09:37→17:16)
[2021-01-28] MEDS: Aspirin 81 MG TAB.CHEW PO (09:37)
[2021-01-28] MEDS: Multivitamins,Therapeutic Tablet 1 TABLET PO (09:37)
[2021-01-28] MEDS: Carvedilol 6.25 MG Tablet PO ×2 (09:37→21:53)
[2021-01-28] MEDS: Pantoprazole Sodium 20 MG Tablet PO (09:38)
[2021-01-28] MEDS: Digoxin 125 MCG Tablet PO (09:38)
[2021-01-28] MEDS: Furosemide 40 MG/4 ML Vial IV ×2 (11:06→17:16)
--- NOTE | 2021-01-28 12:49 | PCM.PN.CARD ---
Subjective Subjective Patient seen and evaluated today at bedside Sitting out in a chair still have lower extremity edema Noted she had the A. fib, ventricular rate is more controlled. On the current medication. Objective Data Vital Signs: Vital Signs Temp Pulse Resp BP Pulse Ox 97.7 F L 105 H 14 122/65 H 96 01/28/21 09:26 01/28/21 09:38 01/28/21 09:26 01/28/21 11:04 01/28/21 09:26 Oxygen Flow Rate (L/min) 2 Oxygen Delivery Method Room Air Weight: 283 lb 1.176 oz Body Mass Index (BMI) 46.3 Intake & Output: Intake and Output for Last 24 Hours 01/26/21 01/27/21 01/28/21 23:59 23:59 23:59 Intake Total 873.17 / 978.17 1041.67 / 1041.67 Output Total 550 / 550 400 / 800 401 / 401 Balance 323.17 / 428.17 641.67 / 241.67 -401 / -401 Lab / Micro Data Result Diagrams: 01/28/21 05:13 01/28/21 05:13 Labs: Laboratory Results - last 24 hr 01/27/21 01/27/21 01/28/21 17:26 22:32 05:13 WBC 5.4 RBC 3.85 L Hgb 9.9 L Hct 31.4 L MCV 81.6 MCH 25.7 L MCHC 31.5 L RDW Std Deviation 42.5 RDW Coeff of Rocio 14.4 Plt Count 235 MPV 11.8 Immature Gran % (Auto) 0.200 Neut % (Auto) 64.4 Lymph % (Auto) 23.8 Harvey % (Auto) 8.6 Eos % (Auto) 2.4 Baso % (Auto) 0.6 Absolute Neuts (auto) 3.5 Absolute Lymphs (auto) 1.28 Nucleated RBC % 0 Sodium Potassium Chloride Carbon Dioxide Anion Gap BUN Creatinine Estim Creat Clear Calc Est GFR (MDRD) Af Amer Est GFR (MDRD) Non-Af BUN/Creatinine Ratio Glucose Calcium POC Glucose 178 H 157 H 01/28/21 01/28/21 05:13 06:35 WBC RBC Hgb Hct MCV MCH MCHC RDW Std Deviation RDW Coeff of Rocio Plt Count MPV Immature Gran % (Auto) Neut % (Auto) Lymph % (Auto) Harvey % (Auto) Eos % (Auto) Baso % (Auto) Absolute Neuts (auto) Absolute Lymphs (auto) Nucleated RBC % Sodium 143 Potassium 3.4 L Chloride 110 H Carbon Dioxide 28.0 Anion Gap 5 BUN 19 H Creatinine 0.98 Estim Creat Clear Calc 52.15 Est GFR (MDRD) Af Amer 73 Est GFR (MDRD) Non-Af 60 BUN/Creatinine Ratio 19.4 Glucose 123 H Calcium 8.5 POC Glucose 124 H Cardiology Labs/Tests 01/28/21 05:13: WBC 5.4, RBC 3.85 L, Hgb 9.9 L, Hct 31.4 L, MCV 81.6, MCH 25.7 L, MCHC 31.5 L, Plt Count 235, MPV 11.8, Immature Gran % (Auto) 0.200, Neut % (Auto) 64.4, Lymph % (Auto) 23.8, Harvey % (Auto) 8.6, Eos % (Auto) 2.4, Baso % (Auto) 0.6, Absolute Neuts (auto) 3.5, Nucleated RBC % 0 01/28/21 05:13: Sodium 143, Potassium 3.4 L, Chloride 110 H, Carbon Dioxide 28.0, Anion Gap 5, BUN 19 H, Creatinine 0.98, Est GFR (MDRD) Af Amer 73, Est GFR (MDRD) Non-Af 60, BUN/Creatinine Ratio 19.4, Glucose 123 H, Calcium 8.5 Rhythm: EKG: ECHO: Stress Test: Cardiac Cath: PCI: CT Surgery: Holter monitor: EPS: PPM: CXR: Chest CT Scan: Physical Exam Narrative Cardiac examination underlying cardiac rhythm is A. fib with better controlled ventricular rate Patient had a history of hypertension, obstructive sleep apnea, CAD and dilated cardiomyopathy. Nonobstructive coronary atherosclerosis. S1-S2 is regular there is no murmur Chest examination clear to auscultation Examination lower extremities she had remarkable lower extremity edema. 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 Dawson Patient underwent cardiac catheterization and has a dilated cardiomyopathy, findings revealed mild luminal irregularity of the LAD and the RCA with normal left main and left circumflex. I reviewed and discussed the current medication will continue the current treatment. If she remains stable clinically plan will be to discharge home and to follow-up with the primary bus and trolley inspecting dispatcher as outpatient Dr. Dawson
--- NOTE | 2021-01-28 12:54 | PN.HOSP_ITS ---
Documented by User: Jah TAM 01/28/21 13:02 Subjective Subjective Patient is a 65-year-old female comfortably resting in chair, alert and oriented x3. Patient denies any change or progression in symptoms from yesterday. Denies chest pain, shortness of breath, palpitations, sputum production, hemopt ysis, fever, chills, N/V/D. Objective Data Objective Data Vital Signs: Vital Signs Temp Pulse Resp BP Pulse Ox 97.7 F L 105 H 14 122/65 H 96 01/28/21 09:26 01/28/21 09:38 01/28/21 09:26 01/28/21 11:04 01/28/21 09:26 Oxygen Flow Rate (L/min) 2 Oxygen Delivery Method Room Air Weight: 283 lb 1.176 oz Body Mass Index (BMI) 46.3 Intake & Output: Intake and Output for Last 24 Hours 01/26/21 01/27/21 01/28/21 23:59 23:59 23:59 Intake Total 873.17 / 978.17 1041.67 / 1041.67 Output Total 550 / 550 400 / 800 401 / 401 Balance 323.17 / 428.17 641.67 / 241.67 -401 / -401 Lab / Micro Data Result Diagrams: 01/28/21 05:13 01/28/21 05:13 Labs: Laboratory Results - last 24 hr 01/27/21 01/27/21 01/28/21 17:26 22:32 05:13 WBC 5.4 RBC 3.85 L Hgb 9.9 L Hct 31.4 L MCV 81.6 MCH 25.7 L MCHC 31.5 L RDW Std Deviation 42.5 RDW Coeff of Rocio 14.4 Plt Count 235 MPV 11.8 Immature Gran % (Auto) 0.200 Neut % (Auto) 64.4 Lymph % (Auto) 23.8 Stewart % (Auto) 8.6 Eos % (Auto) 2.4 Baso % (Auto) 0.6 Absolute Neuts (auto) 3.5 Absolute Lymphs (auto) 1.28 Nucleated RBC % 0 Sodium Potassium Chloride Carbon Dioxide Anion Gap BUN Creatinine Estim Creat Clear Calc Est GFR (MDRD) Af Amer Est GFR (MDRD) Non-Af BUN/Creatinine Ratio Glucose Calcium POC Glucose 178 H 157 H 01/28/21 01/28/21 05:13 06:35 WBC RBC Hgb Hct MCV MCH MCHC RDW Std Deviation RDW Coeff of Rocio Plt Count MPV Immature Gran % (Auto) Neut % (Auto) Lymph % (Auto) Stewart % (Auto) Eos % (Auto) Baso % (Auto) Absolute Neuts (auto) Absolute Lymphs (auto) Nucleated RBC % Sodium 143 Potassium 3.4 L Chloride 110 H Carbon Dioxide 28.0 Anion Gap 5 BUN 19 H Creatinine 0.98 Estim Creat Clear Calc 52.15 Est GFR (MDRD) Af Amer 73 Est GFR (MDRD) Non-Af 60 BUN/Creatinine Ratio 19.4 Glucose 123 H Calcium 8.5 POC Glucose 124 H Physical Exam Narrative See subjective. Const alert, oriented x3 and no apparent distress HEENT head/scalp atraumatic, moist oral mucous membranes and oropharynx normal Head and Scalp: normocephalic Eyes PERRL, EOMs intact bilaterally and conjunctivae normal Neck no lymphadenopathy, supple and no JVD Resp normal respiratory effort Cardio regular rhythm, no murmurs and no JVD Rate: tachycardic GI normal to inspection, nondistended, normoactive bowel sounds, soft to palpation and non-tender Extremity Extremity Narrative: Edema about the lower extremities bilaterally. Difficult to assess whether this is related to CHF or patient's large body habitus. General Extremity: edema Skin no rashes or lesions noted, no wounds and skin turgor normal Neuro CN's II-XII intact bilaterally Psych affect normal Assessment & Plan Assessment/Plan (1) Atrial fibrillation with rapid ventricular response: (2) CHF (congestive heart failure): QUALIFIERS: Heart failure chronicity: acute Heart failure type: unspecified Qualified Code(s): I50.9 - Heart failure, unspecified (3) GERD (gastroesophageal reflux disease): (4) High cholesterol: (5) Hypertension: QUALIFIERS: Hypertension type: essential hypertension Qualified Code(s): I10 - Essential (primary) hypertension (6) Diabetes: (7) History of left heart catheterization (LHC): (8) Pulmonary hypertension assoc with unclear multi-factorial mechanisms: (9) MORGAN (obstructive sleep apnea): (10) CAD (coronary artery disease): QUALIFIERS: Associated angina: without angina Coronary Disease- Associated Artery/Lesion type: [place] artery [place] vs. transplanted heart: [place] heart Qualified Code(s): I25.10 - Atherosclerotic heart disease of [place] coronary artery without angina pectoris PLAN: See subjective for patient presentation. Patient is currently asymptomatic however has had a sustained tachycardia at a rate of above 110 bpm. Cardiology following and recommends no medication changes at this time and to monitor overnight, believe that medications have yet to take full effect. Although patient is asymptomatic, she does not want to leave hospital early with her sustained tachycardia. Hospital medicine team, cardiology and patient are in agreement that monitoring overnight is warranted. 1) A-Fib w/ RVR Cardizem and Lovenox complete/discontinued. Cardiology following.? Plan; carvedilol increased to 6.25 mg, Eliquis initiated, digoxin initiated and amiodarone initiated, TTE in a.m, follow-up with cardiology as an outpatient after discharge. 2) systolic CHF Cardiac catheterization on 01/27/2021 demonstrated severely elevated right heart pressures, severe pulmonary hypertension elevated LV end-diastolic pressure, global left ventricular systolic dysfunction and an LVEF of 25%. Echocardiogram on 01/26/2021 demonstrated enlarged left ventricle, moderate left ventricular systolic dysfunction, an estimated EF of 35%, RVSP of 66 mmHg.? Diastolic function unable to be assessed. allergic to lisinopril, not currently on Lasix at home. Cardiology following.? Plan; continue carvedilol, Lasix, digoxin, Imdur and hydralazine.? Follow-up with cardiology as an outpatient after discharge. 3) HTN Continue felodipine and carvedilol. 4) hypercholesterolemia Lipids within normal limits. Continue simvastatin. 5) DM 2 Continue home Lantus and glimepiride. 6) GERD Continue pantoprazole. DVT prophylaxis - Eliquis Patient seen by Jah Fernandez PA-C, under the supervision of Dr. Ramirez. Documented by User: Dr. Dg Ramirez, 01/28/21 13:27 Objective Data Lab / Micro Data Result Diagrams: 01/28/21 05:13 01/28/21 05:13 Physical Exam Const alert Resp normal respiratory effort and clear to auscultation bilaterally Cardio Cardio Narrative: Tachycardic. GI normal to inspection, nondistended, normoactive bowel sounds Extremity General Extremity: edema Assessment & Plan Assessment/Plan (1) Atrial fibrillation with rapid ventricular response: PLAN: Patient seen and examined independently. Data reviewed. I agree with the above note by the physician public aid eligibility assistant. 1.? Atrial fibrillation with RVR * Currently rate controlled. * Echocardiogram showed an EF of 35% complicated by pulmonary hypertension with an RVSP of 66 mmHg * Discussed with Dr. Dawson, he recommends since she is rate controlled, to cut the rate down from 10-5.? He is also okay with increasing the carvedilol from 3.125-6.25.? Continue with diuresis as well. 2.? Acute heart failure reduced ejection fraction * EF of 35%.? Patient on IV furosemide.3. Pulmonary HTN * 2/2 CHF v MORGAN. Cannot rule out PE * Patient will be treated with MORGAN with CPAP. She outpatient evaluation with a VQ scan to evaluate for chronic venous thromboembolic disease. Visit Charges Inpatient E&M: 27245 Subs Hosp L2
[2021-01-28] MEDS: Insulin Lispro 100 UNIT/ML INSULN.PEN SC ×3 (13:08→21:46)
[2021-01-28 13:15] LABS: Bedside Glucose 244 mg/dL (70-110)
[2021-01-28 17:20] LABS: Bedside Glucose 191 mg/dL (70-110)
--- NOTE | 2021-01-28 18:11 | CASEMGMT ---
RN CM in to pt room to provide eliquher[employer] savings card. Pt was to dc today and use [facility] Retail pharmacy. This pharmacy closed tomorrow. Explanation provided to pt on savings card and aware if she dc's tomorrow to present it to [facility]. Pt verbalizes understanding and denies questions.
[2021-01-28] MEDS: Atorvastatin Calcium 20 MG Tablet PO (21:53)
[2021-01-28 22:00] LABS: Bedside Glucose 333 mg/dL (70-110)
[2021-01-29] VITALS (9 sets, daily range): BP systolic 129–153; BP diastolic 81–85; PULSE 69–96; RESP 14–18; TEMP 36.5–36.8; O2SAT 95–98
--- NOTE | 2021-01-29 05:15 | NURSING ---
Texted dr Lora regarding 7 beat run of vtach, awaiting response
--- NOTE | 2021-01-29 05:20 | NURSING ---
Dr Lora ordered 40 meq po x1 of potassium at this time regarding the text about the 7 beat run of vtach.
[2021-01-29 05:45] LABS: Anion Gap 7 (5-15); BUN 20 mg/dL (7-18); BUN/Creat Ratio 19.4 RATIO (10-20); Calcium,Total 8.3 mg/dL (8.5-10.1); Chloride 107 mmol/L (98-107); Creatinine, Serum 1.03 mg/dL (0.55-1.02); EST Glomerular Filtration Rate 57 mL/min (>60); Est Glom Filt Rate - Afr Amer 69 mL/min (>60); Estimated Creatinine Clearance 49.62 ml/min; Glucose 164 mg/dL (74-106); Potassium 3.3 mmol/L (3.5-5.1); Sodium Level 142 mmol/L (136-145)
[2021-01-29] MEDS: Potassium Chloride Oral Tablet 20 MEQ 40 MEQ PO (06:04)
[2021-01-29] MEDS: hydrALAZINE 25 MG Tablet PO ×2 (06:05→15:05)
[2021-01-29] MEDS: Amiodarone 200 MG Tablet PO ×2 (06:08→15:05)
[2021-01-29] MEDS: Insulin Lispro 100 UNIT/ML INSULN.PEN SC ×2 (06:32→12:16)
[2021-01-29 07:05] LABS: Bedside Glucose 168 mg/dL (70-110)
[2021-01-29] MEDS: Multivitamins,Therapeutic Tablet 1 TABLET PO (09:02)
[2021-01-29] MEDS: Carvedilol 6.25 MG Tablet PO (09:02)
[2021-01-29] MEDS: Glimepiride 4 MG Tablet PO (09:02)
[2021-01-29] MEDS: Digoxin 125 MCG Tablet PO (09:02)
[2021-01-29] MEDS: Aspirin 81 MG TAB.CHEW PO (09:03)
[2021-01-29] MEDS: Isosorbide Mononitrate 30 MG Tablet PO (09:03)
[2021-01-29] MEDS: Pantoprazole Sodium 20 MG Tablet PO (09:03)
[2021-01-29] MEDS: APIXABAN 5 MG TABLET PO (09:04)
[2021-01-29] MEDS: Furosemide 40 MG/4 ML Vial IV (09:05)
--- NOTE | 2021-01-29 10:30 | PCM.DC ---
Discharge Instructions Diet Discharge Diet: No restrictions Activity Discharge Activity: Return to Normal Activity Follow Up Care Please Follow Up With: Primary care provider When: Within the next two weeks. Test Results: Test results from this visit will be discussed in further detail at your follow-up appointment, if applicable. Discharge Plan Admission Admit Date/Time: 01/25/21 17:56 Primary Reason for Your Visit: Heart failure Attending Provider: Dg Ramirez Primary Care Provider: Emperatriz Sepulveda Consulting Providers: Martínez Dawson Instructions Patient Instructions: Heart Failure: Tracking Your Weight, Heart Failure: Making Changes to Your Diet, Heart Failure: Evaluating Your Heart, Heart Failure: Medications to Help Your Heart, Heart Failure Discharge Orders/Prescriptions Prescriptions: New Eliquis 5 mg tablet 5 mg PO BID Qty: 60 RF: 0 carvedilol [Coreg] 12.5 mg tablet 12.5 mg PO BID Qty: 60 RF: 0 furosemide [Lasix] 40 mg tablet 40 mg PO DAILY Qty: 30 RF: 0 amiodarone 200 mg tablet 200 mg PO BID Qty: 60 RF: 0 digoxin [Digitek] 125 mcg (0.125 mg) tablet 125 mcg PO DAILY Qty: 30 RF: 0 isosorbide mononitrate 30 mg tablet extended release 24 hr 30 mg PO DAILY Qty: 30 RF: 0 hydralazine 25 mg tablet 25 mg PO TID Qty: 90 RF: 0 Continued simvastatin 40 MG tablet 40 mg PO QHS RF: 0 glimepiride 4 MG tablet 4 mg PO BIDCM RF: 0 omeprazole 20 MG capsule,delayed release(DR/EC) 20 mg PO DAILY RF: 0 felodipine 10 MG tablet extended release 24 hr 20 mg PO DAILY RF: 0 insulin glargine 100 UNIT/ML insulin pen 22 unit SQ QHS RF: 0 multivitamin Tablet 1 tab PO DAILY RF: 0 cranberry 450 mg Tablet 900 mg PO BID RF: 0 Discontinued carvedilol 3.125 MG tablet 3.125 mg PO BID RF: 0 Referrals / Follow Up: Emperatriz Sepulveda MD [Primary Care Provider] - Martínez Dawson MD [STAFF PHYSICIAN] - Disposition Disposition (needs filled in before D/C Order can be placed): Home, self care
[2021-01-29 12:25] LABS: Bedside Glucose 231 mg/dL (70-110)
[2021-01-29] MEDS: Carvedilol 12.5 MG Tablet PO (12:45)
--- NOTE | 2021-01-29 13:12 | PCM.DC.SUM ---
Documented by User: Jah TAM 01/29/21 15:07 Providers Date of Admission: 01/25/21 Primary Care Physician: Dr. Emperatriz Sepulveda MD Consultations 01/25/21 21:00 Consult: Cardiology Routine Consulting Provider: Martínez Dawson Reason for Consult: Afib with RVR EMERGENT Consult: No MD Notified: Yes Date Notified:: 01/26/21 Time Notified: 06:36 Method of Notification: Text Method of Consult:: In-Person Reason For Visit: AFIB WITH RVR/CHF Diagnosis Discharge Diagnosis (1) Atrial fibrillation with rapid ventricular response: Status: Acute Code(s): I48.91 - Unspecified atrial fibrillation Medications at Discharge Home Medications felodipine 20 mg PO DAILY 12/14/19 glimepiride 4 mg PO BIDCM 12/14/19 insulin glargine 22 unit SQ QHS 12/14/19 omeprazole 20 mg PO DAILY 12/14/19 simvastatin 40 mg PO QHS 12/14/19 cranberry 900 mg PO BID 01/25/21 multivitamin 1 tab PO DAILY 01/25/21 amiodarone 200 mg PO BID #60 tab 01/29/21 apixaban [Eliquis] 5 mg PO BID #60 tab 01/29/21 carvedilol [Coreg] 12.5 mg PO BID #60 tab 01/29/21 digoxin [Digitek] 125 mcg PO DAILY #30 tab 01/29/21 furosemide [Lasix] 40 mg PO DAILY #30 tab 01/29/21 hydralazine 25 mg PO TID #90 tab 01/29/21 isosorbide mononitrate 30 mg PO DAILY #30 tab 01/29/21 Hospital Course Summary of Care Provided Minutes Spent on Discharge: 35 Hospital Course: See subjective for patient presentation. 1) A-Fib w/ RVR Heart rate and rhythm controlled overnight, however patient developed sinus tachycardia this morning on telemetry monitoring. Cardiology informed, recommend increasing Coreg to 12.5 mg, observe and proceed with discharge. Plan; carvedilol increased to 12.5 mg PO BID, Eliquis initiated, digoxin initiated and amiodarone initiated, follow up with cardiology as an outpatient after discharge. 2) Systolic CHF Cardiac catheterization on 01/27/2021 demonstrated severely elevated right heart pressures, severe pulmonary hypertension elevated LV end-diastolic pressure, global left ventricular systolic dysfunction and an LVEF of 25%. Echocardiogram on 01/26/2021 demonstrated enlarged left ventricle, moderate left ventricular systolic dysfunction, an estimated EF of 35%, RVSP of 66 mmHg. Diastolic function unable to be assessed. allergic to lisinopril, not currently on Lasix at home. Cardiology following. Plan; continue carvedilol, Lasix, digoxin, Imdur and hydralazine. Follow-up with cardiology as an outpatient after discharge. 3) HTN Continue felodipine and carvedilol. 4) hypercholesterolemia Lipids within normal limits. Continue simvastatin. 5) DM 2 Continue home Lantus and glimepiride. 6) GERD Continue pantoprazole. DVT prophylaxis - [facility] Patient seen by Jah Fernandez PA-C, under the supervision of Dr. Ramirez. Physical Exam Narrative Patient is a 65-year-old female comfortably resting in chair, alert and orient x3. Patient reports no change or progression of symptoms from yesterday. Denies chest pain, shortness of breath, palpitations, sputum production, hemoptysis, fever, chills, N/V/D. Const alert, oriented x3 and no apparent distress HEENT normocephalic, head/scalp atraumatic and hearing grossly normal bilaterally Eyes PERRL, EOMs intact bilaterally and conjunctivae normal Neck no lymphadenopathy, supple and no JVD Resp normal respiratory effort, no retractions, no use of accessory muscles and clear to auscultation bilaterally Cardio regular rate, regular rhythm, no murmurs and no JVD GI normal to inspection, nondistended, normoactive bowel sounds, soft to palpation, non-tender and non-distended Extremity normal to inspection, full ROM and no clubbing, cyanosis or edema Skin no rashes or lesions noted, no wounds and skin turgor normal Neuro CN's II-XII intact bilaterally Psych affect normal ABG / Lab / Microbiology Data Result Diagrams: 01/28/21 05:13 01/29/21 04:54 Laboratory: Laboratory Results - last 24 hr 01/28/21 01/28/21 01/28/21 13:07 17:14 21:44 Sodium Potassium Chloride Carbon Dioxide Anion Gap BUN Creatinine Estim Creat Clear Calc Est GFR (MDRD) Af Amer Est GFR (MDRD) Non-Af BUN/Creatinine Ratio Glucose Calcium POC Glucose 244 H 191 H 333 H 01/29/21 01/29/21 01/29/21 04:54 06:31 12:14 Sodium 142 Potassium 3.3 L Chloride 107 Carbon Dioxide 28.0 Anion Gap 7 BUN 20 H Creatinine 1.03 H Estim Creat Clear Calc 49.62 Est GFR (MDRD) Af Amer 69 Est GFR (MDRD) Non-Af 57 L BUN/Creatinine Ratio 19.4 Glucose 164 H Calcium 8.3 L POC Glucose 168 H 231 H D/C Instructions Discharge Diet: No restrictions Discharge Activity: Return to Normal Activity Please Follow Up With: Primary care provider When: Within the next two weeks. Discharge Plan Admission Admit Date/Time: 01/25/21 17:56 Primary Reason for Your Visit: Heart failure Attending Provider: Dg Ramirez Primary Care Provider: Emperatriz Sepulveda Consulting Providers: Martínez Dawson Instructions Patient Instructions: Heart Failure: Tracking Your Weight, Heart Failure: Making Changes to Your Diet, Heart Failure: Evaluating Your Heart, Heart Failure: Medications to Help Your Heart, Heart Failure Discharge Orders/Prescriptions Prescriptions: New Eliquis 5 mg tablet 5 mg PO BID Qty: 60 RF: 0 carvedilol [Coreg] 12.5 mg tablet 12.5 mg PO BID Qty: 60 RF: 0 furosemide [Lasix] 40 mg tablet 40 mg PO DAILY Qty: 30 RF: 0 amiodarone 200 mg tablet 200 mg PO BID Qty: 60 RF: 0 digoxin [Digitek] 125 mcg (0.125 mg) tablet 125 mcg PO DAILY Qty: 30 RF: 0 isosorbide mononitrate 30 mg tablet extended release 24 hr 30 mg PO DAILY Qty: 30 RF: 0 hydralazine 25 mg tablet 25 mg PO TID Qty: 90 RF: 0 Continued simvastatin 40 MG tablet 40 mg PO QHS RF: 0 glimepiride 4 MG tablet 4 mg PO BIDCM RF: 0 omeprazole 20 MG capsule,delayed release(DR/EC) 20 mg PO DAILY RF: 0 felodipine 10 MG tablet extended release 24 hr 20 mg PO DAILY RF: 0 insulin glargine 100 UNIT/ML insulin pen 22 unit SQ QHS RF: 0 multivitamin Tablet 1 tab PO DAILY RF: 0 cranberry 450 mg Tablet 900 mg PO BID RF: 0 Discontinued carvedilol 3.125 MG tablet 3.125 mg PO BID RF: 0 Referrals / Follow Up: Emperatriz Sepulveda MD [Primary Care Provider] - Martínez Dawson MD [STAFF PHYSICIAN] - Disposition Disposition (needs filled in before D/C Order can be placed): Home, self care Documented by User: Dr. Dg Ramirez, 01/29/21 13:39 Providers Date of Admission: 01/25/21 Reason For Visit: AFIB WITH RVR/CHF Medications at Discharge Home Medications felodipine 20 mg PO DAILY 12/14/19 glimepiride 4 mg PO BIDCM 12/14/19 insulin glargine 22 unit SQ QHS 12/14/19 omeprazole 20 mg PO DAILY 12/14/19 simvastatin 40 mg PO QHS 12/14/19 cranberry 900 mg PO BID 01/25/21 multivitamin 1 tab PO DAILY 01/25/21 amiodarone 200 mg PO BID #60 tab 01/29/21 apixaban [Eliquis] 5 mg PO BID #60 tab 01/29/21 carvedilol [Coreg] 12.5 mg PO BID #60 tab 01/29/21 digoxin [Digitek] 125 mcg PO DAILY #30 tab 01/29/21 furosemide [Lasix] 40 mg PO DAILY #30 tab 01/29/21 hydralazine 25 mg PO TID #90 tab 01/29/21 isosorbide mononitrate 30 mg PO DAILY #30 tab 01/29/21 Hospital Course Summary of Care Provided Minutes Spent on Discharge: 32 Hospital Course: Patient seen and examined independently. Data reviewed. I agree with the above note by the physician credentialing assistant. 65-year-old female admitted with A. fib with RVR. Did require several medications to get rate controlled. Patient also had acute heart failure with reduced ejection fraction. EF was 35% with pulmonary hypertension. Patient does have known sleep apnea which she is on a CPAP. Patient will need to have further evaluation for chronic pulmonary emboli with a VQ scan. Patient is already anticoagulated for the atrial fibrillation. The VQ scan was just be to evaluate and rule out or rule in chronic venous thromboembolic disease. VQ scan is a test of choice for chronic venous thromboembolic disease over a CT angiogram. Physical Exam Const alert General Appearance: cooperative HEENT normocephalic Resp normal respiratory effort and clear to auscultation bilaterally Cardio regular rate and regular rhythm ABG / Lab / Microbiology Data Result Diagrams: 01/28/21 05:13 01/29/21 04:54 Meaningful Use Info Meaningful Use Diagnoses (Choose all that apply): CHF CHF MASSIEL/ARB ordered at discharge?: No Reason MASSIEL/ARB not ordered?: Allergy Documented LVEF (%): 35 Discharge Plan Admission Admit Date/Time: 01/25/21 17:56 Primary Reason for Your Visit: Heart failure Attending Provider: Dg Ramirez Primary Care Provider: Emperatriz Sepulvdea Consulting Providers: Martínez Dawson Instructions Patient Instructions: Heart Failure: Tracking Your Weight, Heart Failure: Making Changes to Your Diet, Heart Failure: Evaluating Your Heart, Heart Failure: Medications to Help Your Heart, Heart Failure Discharge Orders/Prescriptions Prescriptions: New Eliquis 5 mg tablet 5 mg PO BID Qty: 60 RF: 0 carvedilol [Coreg] 12.5 mg tablet 12.5 mg PO BID Qty: 60 RF: 0 furosemide [Lasix] 40 mg tablet 40 mg PO DAILY Qty: 30 RF: 0 amiodarone 200 mg tablet 200 mg PO BID Qty: 60 RF: 0 digoxin [Digitek] 125 mcg (0.125 mg) tablet 125 mcg PO DAILY Qty: 30 RF: 0 isosorbide mononitrate 30 mg tablet extended release 24 hr 30 mg PO DAILY Qty: 30 RF: 0 hydralazine 25 mg tablet 25 mg PO TID Qty: 90 RF: 0 Continued simvastatin 40 MG tablet 40 mg PO QHS RF: 0 glimepiride 4 MG tablet 4 mg PO BIDCM RF: 0 omeprazole 20 MG capsule,delayed release(DR/EC) 20 mg PO DAILY RF: 0 felodipine 10 MG tablet extended release 24 hr 20 mg PO DAILY RF: 0 insulin glargine 100 UNIT/ML insulin pen 22 unit SQ QHS RF: 0 multivitamin Tablet 1 tab PO DAILY RF: 0 cranberry 450 mg Tablet 900 mg PO BID RF: 0 Discontinued carvedilol 3.125 MG tablet 3.125 mg PO BID RF: 0 Referrals / Follow Up: Emperatriz Sepulveda MD [Primary Care Provider] - Martínez Dawson MD [STAFF PHYSICIAN] - Disposition Disposition (needs filled in before D/C Order can be placed): Home, self care Visit Charges Inpatient E&M: [id number] Disch Hosp
[2021-01-30 07:11] LABS: Blood Gas Specimen Type VEN; VBG BASE EXCESS 1 mmol/L (-1.0-3.5); VBG Bicarbonate 26 mmol/L (22-26); VBG PO2 30 mmHg (25-40); VBG SO2 56 % (50-70); VBG TCO2 27 mmol/L (23-33); VBG pCO2 43.9 mmHg (41-51); VBG pH 7.38 (7.32-7.42)
--- NOTE | 2021-01-31 15:12 | CASEMGMT ---
N CM Discharge Follow Up Phone Call: LACE: 12 Strata: 3 Call Date: 01.31.21 Discharge Date: 01.29.21 Time of Call: 1512 Duration: <1 min Admitting Dx: afib with rvr, CHF RN CM attempted to complete follow up phone call after recent hospitalization. Left message on patient identified voicemail with call back information.
--- NOTE | 2021-02-06 08:03 | CCN.REFER ---
PATIENT DECLINES CCN.
== END 2021-01-29 17:14 | disposition home or self-care (01) | DRG 286 ==
LOC: ED 17:47 → PCU 18:44
PROVIDERS: Internal Medicine Cardiovascular Disease; Physician Assistant; Admitting Provider Internal Medicine; Emergency Provider Emergency Medicine; PCP Internal Medicine
DX: I48.91 Unspecified atrial fibrillation (principal); I50.21 Acute systolic (congestive) heart failure; Z68.42 Body mass index [BMI] 45.0-49.9, adult; I42.0 Dilated cardiomyopathy; I34.0 Nonrheumatic mitral (valve) insufficiency; I27.20 Pulmonary hypertension, unspecified; I25.10 Atherosclerotic heart disease of native coronary artery without angina pectoris; E11.9 Type 2 diabetes mellitus without complications; E66.01 Morbid (severe) obesity due to excess calories; E78.00 Pure hypercholesterolemia, unspecified; E78.5 Hyperlipidemia, unspecified; G47.33 Obstructive sleep apnea (adult) (pediatric); I11.0 Hypertensive heart disease with heart failure; K21.9 Gastro-esophageal reflux disease without esophagitis; Z79.4 Long term (current) use of insulin; Z79.899 Other long term (current) drug therapy
CPT/HCPCS: 36415; 71045; 80048; 80053; 80061; 80299; 82803; 82962; 83735; 83880; 84443; 84484; 85025; 85610; 85730; 93005; 93306; 93460; 97110; 97162; 97166; 97530; 97535; 97802; 99152; 99153; 99251; 99284; J7030; J7040; Q9957; Q9967; A4216; C1751; C1769; C1894; C8929; G0463; J1940; J3490

== ENCOUNTER → 2021-04-21 09:37 | Outpatient (CLI) | payer MEDICARE, SELFPAY ==
[2021-02-27 10:08] VITALS: BMI 43.4
--- NOTE | 2021-04-21 09:41 | ECHOD_ITS ---
Reason For Study: CHF, A. fib Procedure This was a 2D Doppler, Color Flow transthoracic echocardiogram. The study was technically difficult. Exam performed in department. Left Ventricle Normal LV size. Left ventricular systolic function is normal. The estimated ejection fraction is 55 %. Unable to assess diastolic dysfunction. No regional wall motion abnormalities noted. Right Ventricle Normal RV size. Normal systolic function. Atria The left atrium is mildly enlarged. Normal right atrium. No doppler evidence for ASD. Mitral Valve There is mild mitral annular calcification. Extension of the mitral annular calcification on the base of the posterior mitral valve leaflet. Mild (1+) mitral valve insufficiency. Tricuspid Valve Normal tricuspid valve. Mild tricuspid valve insufficiency. Right ventricular systolic pressure estimated to be 41 mmHg. Aortic Valve Trisinus/trileaflet aortic valve. Normal aortic valve. Pulmonic Valve The pulmonic valve is not well visualized. Trivial pulmonic valve insufficiency. Great Vessels Normal sized aortic root. Pericardium/Pleural No pericardial effusion. MMode/2D Measurements & Calculations LVIDd: 5.2 cm IVSd: 1.2 cm Ao root diam: 3.3 cm LVIDs: 3.4 cm LVPWd: 1.2 cm FS: 34.8 % LAV(MOD-bp): 95.8 ml LA A4 area: 27.4 cm2 LA dimension(2D): 3.8 cm LAV(MOD-bp) Indexed: 42.2 ml/m2 LAV(MOD-sp2): 85.4 ml LAV(MOD-sp4): 102.1 ml RA A4 area: 17.0 cm2 Doppler Measurements & Calculations MV E max heidy: 144.0 cm/sec Ao V2 max: 173.0 cm/sec LV V1 max: 114.7 cm/sec Ao max P.0 mmHg LV V1 max P.3 mmHg PA V2 max: 115.1 cm/sec TR max heidy: 288.2 cm/sec TR max P.3 mmHg ECHO/Echo Complete Interpretation Summary The study was technically difficult. Left ventricular systolic function is normal. The estimated ejection fraction is 55 %. The left atrium is mildly enlarged. There is mild mitral annular calcification. Extension of the mitral annular calcification on the base of the posterior mitr al valve leaflet. Mild (1+) mitral valve insufficiency. Mild tricuspid valve insufficiency. Trivial pulmonic valve insufficiency. Right ventricular systolic pressure estimated to be 41 mmHg. Unable to assess diastolic dysfunction. Ordering Physician: Jah Cruz/Martínez Dawson Referring Physician: Emperatriz Sepulveda M.D. Performed By: Jessica Chau RDCS
== END ==
PROVIDERS: PCP Internal Medicine; Referring Provider Nurse Practitioner Family; Visit Provider Nurse Practitioner Family
DX: I42.0 Dilated cardiomyopathy (principal); I27.29 Other secondary pulmonary hypertension; I50.9 Heart failure, unspecified; I48.91 Unspecified atrial fibrillation
CPT/HCPCS: 93306

== ENCOUNTER → 2021-05-03 10:04 | Outpatient (CLI) | payer MEDICARE, SELFPAY ==
--- NOTE | 2021-05-03 10:25 | RAD_ITS ---
INDICATION: diaphoretic, chills EXAMINATION/TECHNIQUE: X-RAY - XR Chest 2 Views COMPARISON: 01/25/2021. FINDINGS: LINES/DEVICES: None. LUNGS: Peribronchial cuffing and bilateral hilar prominence is seen that demonstrates no significant change in comparison to the prior study. Prominence of the bronchovascular interstitial lung markings is visualized bilaterally with blunting of bilateral costophrenic angles consistent with bilateral small pleural effusions. No evidence of pneumothorax or parenchymal lung mass, biapical prominence suggestive of COPD changes demonstrates no change. MEDIASTINUM AND CARDIOVASCULAR STRUCTURES: Cardiac is moderately enlarged demonstrating no change. BONES AND SOFT TISSUES: Degenerative bone changes seen. RAD/Chest PA and Lateral IMPRESSION: Congestive changes with blunting of bilateral costophrenic angles demonstrating no significant change in comparison to the prior study. Electronically Signed: Everardo Lu MD at 13:34 EDT Tel , Service support ,
[2021-05-03 10:42] LABS: Absolute Lymphocyte Count 0.79 X10^3/uL (0.83-4.51); Absolute Neutrophil Count 4.9 X10^3/uL (2.0-7.7); Basophil# 0.03 X10^3/uL; Basophil% 0.5 % (0-1); Eosinophil# 0.07 X10^3/uL; Eosinophils% 1.1 % (0-5); Hematocrit 31.1 % (37-47); Hemoglobin 9.4 g/dL (12.0-15.0); Lymphocyte # 0.79 X10^3/ul (0.83-4.51); Lymphocyte % 12.6 % (19-41); Mean Corp Hgb Conc 30.2 g/dL (32-36); Mean Corpuscular Hgb 23.6 pg (27.0-32.0); Mean Corpuscular Volume 78.1 fL (81-99); Mean Platelet Vol. 10.6 fl (6.2-12.0); Monocyte# 0.44 X10^3/uL; NRBC Flagged by Analyzer 0 % (0-5); Neutrophil # 4.92 X10^3/uL (2.7-7.7); Neutrophil % 78.3 % (47-70); Platelet Count 285 K/mm3 (150-450); RBC Distribution Width CV 17.3 % (11.6-14.6); Red Blood Count 3.98 M/mm3 (4.2-5.4); White Blood Count 6.3 K/mm3 (4.4-11.0)
[2021-05-03 11:22] LABS: BNP,B-Type NATRIURETIC PEPTIDE 194.8 pg/mL (0-100)
[2021-05-03 11:23] LABS: Anion Gap 6 (5-15); BUN 19 mg/dL (7-18); BUN/Creat Ratio 17.1 RATIO (10-20); Calcium,Total 8.4 mg/dL (8.5-10.1); Chloride 112 mmol/L (98-107); Creatinine, Serum 1.11 mg/dL (0.55-1.02); EST Glomerular Filtration Rate 52 mL/min (>60); Est Glom Filt Rate - Afr Amer 63 mL/min (>60); Glucose 112 mg/dL (74-106); Potassium 3.3 mmol/L (3.5-5.1); Sodium Level 142 mmol/L (136-145)
[2021-05-03 11:48] LABS: Digoxin Level 1.57 ng/mL (0.80-2.00)
== END ==
PROVIDERS: PCP Internal Medicine; Visit Provider Nurse Practitioner Family
DX: I11.0 Hypertensive heart disease with heart failure (principal); I50.9 Heart failure, unspecified; G47.33 Obstructive sleep apnea (adult) (pediatric); I25.10 Atherosclerotic heart disease of native coronary artery without angina pectoris; I27.29 Other secondary pulmonary hypertension; I42.0 Dilated cardiomyopathy
CPT/HCPCS: 36415; 71046; 80048; 80162; 83880; 85025

== ENCOUNTER 2021-05-13 09:45 | Inpatient (IN) | payer MEDICARE, SELFPAY ==
[2021-05-13] VITALS (14 sets, daily range): BP systolic 112–133; BP diastolic 53–72; PULSE 51–80; RESP 16–30; TEMP 36.1–36.7; O2SAT 84–96; BMI 44.2; BMI 44.1
--- NOTE | 2021-05-13 10:06 | EKG12_ITS ---
Test Reason : GENERAL Blood Pressure : / mmHG Vent. Rate : 059 BPM Atrial Rate : 061 BPM P-R Int : 000 ms QRS Dur : 092 ms QT Int : 406 ms P-R-T Axes : 000 039 226 degrees QTc Int : [address] & T wave abnormality, consider inferior ischemia Abnormal ECG Confirmed by JOSEPH GUERRERO, MELIDA ([id number]), editorial assistant DWAYNE ESTEVES ([id number]) on 05/15/2021 1:28:02 PM Referred By: PEGGY Confirmed By:MELIDA RUIZ MD
--- NOTE | 2021-05-13 10:30 | RAD_ITS ---
STUDY: X-RAY CHEST REASON FOR EXAM: Female, 66 years old. SOB TECHNIQUE: Single AP portable upright view of the chest. COMPARISON: PA and lateral chest x-ray 05/03/2021 FINDINGS: The lungs are under expanded today. There are ill-defined alveolar densities in the bilateral lung bases, consistent with partial collapse or infection. Small right pleural effusion obscures the diaphragm and costophrenic sulcus. There is question also minimal pleural reaction on the left. There is stable mild cardiac enlargement. Mild fullness in the azygos region as well as the bilateral haseeb, unchanged. Normal visualized biapical pulmonary vascular markings. Normal visualized aortic arch and descending thoracic aorta. There are stable multilevel degenerative changes of the visualized thoracic spine. 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 There is no demonstrated abnormality of the visualized soft tissue structures of the upper abdomen. RAD/Chest 1 View (Portable) IMPRESSION: 1. New bibasilar alveolar densities accompanied by small right pleural effusion and trace of pleural reaction on the left. The biapical pulmonary vascular markings are within normal limits, arguing that this is partial collapse or infection rather than venous congestion. 2. Stable cardiac enlargement. Electronically Signed: Mike Harvey MD at 11:33 EDT , Service support ,
[2021-05-13 10:32] LABS: Absolute Neutrophil Count 5.9 X10^3/uL (2.0-7.7); Basophil# 0.03 X10^3/uL; Basophil% 0.4 % (0-1); Eosinophils% 1.4 % (0-5); Hemoglobin 9.4 g/dL (12.0-15.0); Lymphocyte % 9.7 % (19-41); Mean Corp Hgb Conc 30.3 g/dL (32-36); Mean Corpuscular Hgb 23.7 pg (27.0-32.0); Mean Corpuscular Volume 78.1 fL (81-99); Mean Platelet Vol. 10.5 fl (6.2-12.0); Monocyte# 0.49 X10^3/uL; Monocyte% 6.8 % (0-10); NRBC Flagged by Analyzer 0 % (0-5); Neutrophil # 5.85 X10^3/uL (2.7-7.7); Neutrophil % 81.4 % (47-70); Platelet Count 299 K/mm3 (150-450); RBC Distribution Width CV 18.6 % (11.6-14.6); RBC Distribution Width SD 51.5 fl (35.1-43.9); Red Blood Count 3.97 M/mm3 (4.2-5.4); White Blood Count 7.2 K/mm3 (4.4-11.0)
[2021-05-13 10:46] LABS: ALB/GLOB Ratio 0.7 RATIO (0.9-2.4); AST(SGOT) 14 U/L (15-37); Alanine Aminotransfer ALT/SGPT 20 U/L (13-56); Alkaline Phosphatase 103 U/L (45-117); Anion Gap 5 (5-15); BUN 21 mg/dL (7-18); BUN/Creat Ratio 17.8 RATIO (10-20); Calcium,Total 8.5 mg/dL (8.5-10.1); Chloride 112 mmol/L (98-107); Creatinine, Serum 1.18 mg/dL (0.55-1.02); EST Glomerular Filtration Rate 48 mL/min (>60); Est Glom Filt Rate - Afr Amer 59 mL/min (>60); Estimated Creatinine Clearance 42.72 ml/min; Globulin 4.2 g/dL (2.2-4.2); Glucose 141 mg/dL (74-106); Potassium 4.1 mmol/L (3.5-5.1); Protein, Total 7.2 g/dL (6.4-8.2); Sodium Level 143 mmol/L (136-145); Troponin-I HS 13 pg/mL (3.0-54.0)
[2021-05-13 10:54] LABS: BNP,B-Type NATRIURETIC PEPTIDE 187.3 pg/mL (0-100)
--- NOTE | 2021-05-13 11:01 | CT_ITS ---
EXAM: CT ANGIOGRAPHY CHEST WITHOUT AND WITH INTRAVENOUS CONTRAST : 1955 CLINICAL INDICATION: pe TECHNIQUE: Helically acquired angiography images were obtained of the chest without and with intravenous contrast. This CT exam was performed using one or more of the following dose reduction techniques: automated exposure control, adjustment of the mA and/or kV according to patient size, and/or use of iterative reconstruction technique. This report was created using [employer] report generation technology. MIP reconstructed images were created and reviewed. CONTRAST: IV 100mL [id number] COMPARISON: None. FINDINGS: PULMONARY ARTERIES: Unremarkable. Normal in caliber. No evidence of pulmonary embolism. AORTA: Unremarkable. Normal in caliber. No evidence of dissection. GREAT VESSELS OF AORTIC ARCH: Unremarkable. Normal in caliber. No evidence of dissection. LUNGS AND PLEURAL SPACES: There are bilateral pleural effusions larger on the right than on the left. There is bibasilar consolidation with atelectasis or pneumonia. No mass. HEART: The heart is enlarged in size. No pericardial effusion. No signs of right heart strain, ratio of right ventricle to left ventricle measures less than 1. MEDIASTINUM: Unremarkable. No mediastinal or hilar adenopathy. Esophagus is unremarkable. No hiatal hernia. THYROID: Unremarkable. No thyroid lesions. BONES/JOINTS: Unremarkable. No suspicious lytic or blastic abnormality. LYMPH NODES: There is scattered adenopathy with the largest node in the aorticopulmonary window measuring 1.[address]/CTA Chest W/WO Contrast IMPRESSION: 1. Bilateral effusions with bilateral lower lobe consolidation which may represent atelectasis or pneumonia. 2. No evidence of pulmonary embolus. Individualized dose optimization techniques were used for this CT. at 1320 Reported and signed by: Ace Ramon MD Electronically Signed: Ace Ramon MD at 13:19 EDT Tel , Service support ,
[2021-05-13 13:14] LABS: Probe Check PASS; Specimen Processing Control PASS
--- NOTE | 2021-05-13 13:27 | EX.ED.DYSGE1 ---
HPI History of Present Illness Chief Complaint: General Illness Narrative Narrative: Patient presents with shortness of breath for the past few weeks getting worse today. Some subjective fevers but no chills. She has some cough. She also has generalized weakness. She tells me the shortness of breath has gotten worse and if she even ambulates across the room she gets quite short of breath. [facility] Medical History CAD (coronary artery disease) Cardiomyopathy Diabetes GERD (gastroesophageal reflux disease) History of left heart catheterization (LHC) (~01/27/21) HTN (hypertension) Hyperlipemia MORGAN (obstructive sleep apnea) Pulmonary hypertension assoc with unclear multi-factorial mechanisms Sleep apnea Home Medications felodipine 40 mg PO DAILY 12/14/19 [History Last Taken 01/25/21] glimepiride 4 mg PO BIDCM 12/14/19 [History Last Taken 01/25/21] insulin glargine 22 unit SQ QHS 12/14/19 [History Last Taken 01/24/21] omeprazole 20 mg PO DAILY 12/14/19 [History Last Taken 01/25/21] cranberry 900 mg PO BID 01/25/21 [History Last Taken 01/25/21] multivitamin 1 tab PO DAILY 01/25/21 [History Last Taken 01/23/21] apixaban 5 mg tablet 5 mg PO BID #60 tab 02/27/21 [Rx Last Taken Unknown] carvedilol 12.5 mg tablet 12.5 mg PO BID #60 tab 02/27/21 [Rx Last Taken Unknown] digoxin 125 mcg (0.125 mg) tablet 125 mcg PO DAILY #30 tab 02/27/21 [Rx Last Taken Unknown] furosemide 40 mg tablet 40 mg PO DAILY #30 tab 02/27/21 [Rx Last Taken Unknown] hydralazine 25 mg tablet 25 mg PO TID #90 tab 02/27/21 [Rx Last Taken Unknown] isosorbide mononitrate 30 mg tablet,extended release 24 hr 30 mg PO DAILY #30 tab 02/27/21 [Rx Last Taken Unknown] simvastatin 40 mg tablet 40 mg PO QHS #90 tab 02/27/21 [Rx Last Taken Unknown] potassium chloride 20 mEq tablet,extended release 20 meq PO DAILY #30 tab 05/04/21 [Rx Last Taken Unknown] amiodarone 200 mg PO DAILY 05/13/21 [History Last Taken Unknown] Allergy/AdvReac Type Severity Reaction Status Date / Time lisinopril Allergy Laryngospas Verified 05/13/21 09:49 ms Surgical History (Updated 05/13/21 @ 10:41 by Ani Bundy) History of tonsillectomy Social History Smoking Status: Never smoker ROS ROS ED ROS Narrative Past medical history: Reviewed, significant for sleep apnea, heart disease, history of CHF and cardiomyopathy, GERD, A. fib Medications: Reviewed, she is on Eliquis Social history: Noncontributory Review of systems: All systems negative except as indicated General: No fever. Generalized weakness. Eyes: No visual changes ENT: No upper airway congestion, normal voice Neck: No neck pain Cardiovascular: No chest pain Respiratory: Shortness of breath with a cough as in HPI Gastrointestinal: No abdominal pain, nausea vomiting or diarrhea Genitourinary: No dysuria Musculoskeletal: Lower extremity edema, slightly worse than prior. Skin: No rash Neurological: No memory loss, confusion or any focal weakness Psych: No recent behavioral changes Hematologic: No easy bleeding or easy bruising EXAM Physical Exam Narrative Exam Narrative: Physical exam General: Patient appears chronically ill, she appears relatively comfortable in the bed. Head: Normocephalic, Atraumatic Eyes: Conjunctiva not pale ENT: Moist mucous membranes Neck: Supple, Nontender, No lymphadenopathy Cardiovascular: Regular rate, Regular rhythm Respiratory: Coarse breath sounds bilaterally but speaking in full sentences. Abdomen: Soft, Nontender, Nondistended Back: Nontender, Normal Inspection. Negative for: CVA tenderness Extremities: Nontender, bilateral lower extremity edema, no signs of cellulitis. Skin: Normal color, No rash Neurological: Alert, Normal Strength, Normal Sensation Psychological: Normal affect Const Vital Signs: 05/13/21 09:48 05/13/21 09:51 05/13/21 10:40 Temperature 97.2 F L 97.2 F L Temperature Source Temporal Temporal Pulse Rate 51 L 51 L Respiratory Rate 16 16 Respiratory Effort Normal Non-Labored Respiratory Pattern Normal Blood Pressure 112/53 L 112/53 L Blood Pressure Mean 72 72 Pulse Ox 94 94 Oxygen Delivery Method Room Air Room Air Oxygen Flow Rate (L/min) 05/13/21 12:46 05/13/21 12:47 Temperature 97.0 F L Temperature Source Temporal Pulse Rate 59 L 66 Respiratory Rate 30 H 27 H Respiratory Effort Respiratory Pattern Blood Pressure 119/69 126/72 H Blood Pressure Mean 85 90 Pulse Ox 84 93 Oxygen Delivery Method Room Air Nasal Cannula Oxygen Flow Rate (L/min) 3 MDM MDM MDM Narrative Medical decision making narrative: X-ray was unremarkable therefore I ordered a PE study even on the patient was on Eliquis especially that she was morbidly obese there is failure of Eliquis therefore I wanted to be safe. This does not show PE but does show pneumonia. I will treat as such, she became hypoxic in the ED to 88% and was placed on oxygen. Initial Covid is negative but I will send for PCR test. Lab Data Labs: Laboratory Results - last 24 hr 05/13/21 05/13/21 05/13/21 10:15 10:15 10:15 WBC 7.2 RBC 3.97 L Hgb 9.4 L Hct 31.0 L MCV 78.1 L MCH 23.7 L MCHC 30.3 L RDW Std Deviation 51.5 H RDW Coeff of Rocio 18.6 H Plt Count 299 MPV 10.5 Immature Gran % (Auto) 0.300 Neut % (Auto) 81.4 H Lymph % (Auto) 9.7 L Avery % (Auto) 6.8 Eos % (Auto) 1.4 Baso % (Auto) 0.4 Absolute Neuts (auto) 5.9 Absolute Lymphs (auto) 0.70 L Nucleated RBC % 0 Sodium 143 Potassium 4.1 Chloride 112 H Carbon Dioxide 26.0 Anion Gap 5 BUN 21 H Creatinine 1.18 H Estim Creat Clear Calc 42.72 Est GFR (MDRD) Af Amer 59 L Est GFR (MDRD) Non-Af 48 L BUN/Creatinine Ratio 17.8 Glucose 141 H Calcium 8.5 Total Bilirubin 0.60 AST 14 L ALT 20 Alkaline Phosphatase 103 Troponin I High Sens 13 B-Natriuretic Peptide 187.3 H Total Protein 7.2 Albumin 3.0 L Globulin 4.2 Albumin/Globulin Ratio 0.7 L COVID-19 (ZOE) 05/13/21 11:17 WBC RBC Hgb Hct MCV MCH MCHC RDW Std Deviation RDW Coeff of Rocio Plt Count MPV Immature Gran % (Auto) Neut % (Auto) Lymph % (Auto) Avery % (Auto) Eos % (Auto) Baso % (Auto) Absolute Neuts (auto) Absolute Lymphs (auto) Nucleated RBC % Sodium Potassium Chloride Carbon Dioxide Anion Gap BUN Creatinine Estim Creat Clear Calc Est GFR (MDRD) Af Amer Est GFR (MDRD) Non-Af BUN/Creatinine Ratio Glucose Calcium Total Bilirubin AST ALT Alkaline Phosphatase Troponin I High Sens B-Natriuretic Peptide Total Protein Albumin Globulin Albumin/Globulin Ratio COVID-19 (ZOE) Negative Radiography Diagnostic Testing: Radiology Impression Chest X-Ray 05/13/21 10:30 IMPRESSION: 1. New bibasilar alveolar densities accompanied by small right pleural effusion and trace of pleural reaction on the left. The biapical pulmonary vascular markings are within normal limits, arguing that this is partial collapse or infection rather than venous congestion. 2. Stable cardiac enlargement. Electronically Signed: Mike Harvey MD at 11:33 EDT , Service support , Chest CTA 05/13/21 11:01 IMPRESSION: 1. Bilateral effusions with bilateral lower lobe consolidation which may represent atelectasis or pneumonia. 2. No evidence of pulmonary embolus. Individualized dose optimization techniques were used for this CT. at 1320 Reported and signed by: Ace Ramon MD Electronically Signed: Ace Ramon MD at 13:19 EDT Tel , Service support , Discharge Plan Triage Chief Complaint: General Illness ED Provider: Martínez Cordova Dx/Rx/DC Orders Clinical Impression: Hypoxia, Pneumonia Prescriptions: No Action Eliquis 5 mg tablet 5 mg PO BID Qty: 60 RF: 11 carvedilol [Coreg] 12.5 mg tablet 12.5 mg PO BID Qty: 60 RF: 11 digoxin 125 mcg (0.125 mg) tablet 125 mcg PO DAILY Qty: 30 RF: 11 furosemide [Lasix] 40 mg tablet 40 mg PO DAILY Qty: 30 RF: 11 hydralazine 25 mg tablet 25 mg PO TID Qty: 90 RF: 12 isosorbide mononitrate 30 mg tablet extended release 24 hr 30 mg PO DAILY Qty: 30 RF: 11 simvastatin 40 mg tablet 40 mg PO QHS Qty: 90 RF: 3 glimepiride 4 MG tablet 4 mg PO BIDCM RF: 0 omeprazole 20 MG capsule,delayed release(DR/EC) 20 mg PO DAILY RF: 0 felodipine 10 MG tablet extended release 24 hr 40 mg PO DAILY RF: 0 insulin glargine 100 UNIT/ML insulin pen 22 unit SQ QHS RF: 0 multivitamin Tablet 1 tab PO DAILY RF: 0 cranberry 450 mg Tablet 900 mg PO BID RF: 0 amiodarone 200 mg tablet 200 mg PO DAILY RF: 0 potassium chloride 20 mEq tablet extended release 20 meq PO DAILY Qty: 30 RF: 12 Primary Care Provider: Emperatriz Sepulveda Referrals: Emperatriz Sepulveda MD [Primary Care Provider] - Disposition Disposition: Acute Care Hospital [facility]
[2021-05-13] MEDS: Ceftriaxone 1 GM/50 ML BAG IV (13:57)
[2021-05-13] MEDS: Furosemide 40 MG/4 ML Vial IV ×2 (14:03→21:06)
--- NOTE | 2021-05-13 15:57 | PCM.HP.STD ---
Documented by User: Miryam Jauregui NP, UNDERWRITING SUPPORT MANAGER-C 05/13/21 16:27 HPI - General General Date of Admission: 05/13/21 HPI Narrative FORTINO MONTES, is a 66 F who presents to the emergency room due to shortness of breath. Patient reports shortness of breath for the past 2 weeks. She states her symptoms are worse with exertion and she is not able to ambulate any significant distance without worsening breathing. She denies cough, fever, chills. Denies upper respiratory symptoms. States she was vaccinated with 1 dose of Moderna and had health issues afterwards and did not receive her second dose. Patient denies known weight gain. Reports some increase in lower extremity swelling. Patient has a past medical history of chronic heart failure, hypertension, hyperlipidemia, type 2 diabetes mellitus, GERD, morbid obesity, atrial fibrillation, severe pulmonary hypertension, MORGAN. [facility] Medical History CAD (coronary artery disease) Cardiomyopathy Diabetes GERD (gastroesophageal reflux disease) History of left heart catheterization (LHC) (~01/27/21) HTN (hypertension) Hyperlipemia MORGAN (obstructive sleep apnea) Pulmonary hypertension assoc with unclear multi-factorial mechanisms Sleep apnea Home Medications felodipine 40 mg PO DAILY 12/14/19 [History Last Taken 05/13/21 10:00] glimepiride 4 mg PO BIDCM 12/14/19 [History Last Taken 05/13/21 10:00] insulin glargine 22 unit SQ QHS 12/14/19 [History Last Taken 05/12/21 21:00] omeprazole 20 mg PO DAILY 12/14/19 [History Last Taken 05/13/21 10:00] cranberry 900 mg PO TID 01/25/21 [History Last Taken 05/13/21 10:00] multivitamin 1 tab PO DAILY 01/25/21 [History Last Taken 05/13/21 10:00] apixaban 5 mg tablet 5 mg PO BID #60 tab 02/27/21 [Rx Last Taken 05/13/21 10:00] carvedilol 12.5 mg tablet 12.5 mg PO BID #60 tab 02/27/21 [Rx Last Taken 05/13/21 10:00] digoxin 125 mcg (0.125 mg) tablet 125 mcg PO DAILY #30 tab 02/27/21 [Rx Last Taken 05/13/21 10:00] furosemide 40 mg tablet 40 mg PO DAILY #30 tab 02/27/21 [Rx Last Taken 05/13/21 10:00] hydralazine 25 mg tablet 25 mg PO TID #90 tab 02/27/21 [Rx Last Taken 05/13/21 10:00] isosorbide mononitrate 30 mg tablet,extended release 24 hr 30 mg PO DAILY #30 tab 02/27/21 [Rx Last Taken 05/13/21 10:00] simvastatin 40 mg tablet 40 mg PO QHS #90 tab 02/27/21 [Rx Last Taken 05/12/21 21:00] potassium chloride 20 mEq tablet,extended release 20 meq PO DAILY #30 tab 05/04/21 [Rx Last Taken 05/13/21 10:00] amiodarone 200 mg PO DAILY 05/13/21 [History Last Taken 05/13/21 10:00] Allergy/AdvReac Type Severity Reaction Status Date / Time lisinopril Allergy Laryngospas Verified 05/13/21 09:49 ms Family History (Updated 05/13/21 @ 16:04 by Miryam Jauregui NP, UNDERWRITING SUPPORT MANAGER-C) Mother No history of heart disease Father No history of heart disease Surgical History History of tonsillectomy Social History (Updated 05/13/21 @ 16:04 by Miryam Jauregui NP, UNDERWRITING SUPPORT MANAGER-C) Smoking Status: Never smoker alcohol intake: never substance use type: does not use ROS Constitutional Constitutional: Reports weakness; Denies change in weight, chills, fatigue or fever(s) Cardiovascular Cardiovascular: Reports other Details: Increased lower extremity swelling ; Denies chest pain, edema, lightheadedness, palpitations or syncope Respiratory/Chest Respiratory/Chest: Reports shortness of breath at rest and shortness of breath with exertion; Denies cough, productive cough or wheezing Gastrointestinal Gastrointestinal: Denies abdominal pain, constipation, diarrhea, nausea or vomiting Genitourinary Genitourinary: Denies burning urination, difficulty urinating, dysuria, hematuria, urinary frequency, urinary incontinence or urinary urgency Musculoskeletal Musculoskeletal: Denies back pain, joint pain or muscle weakness Integumentary Integumentary: Denies erythema, lesions, rash or wounds Neurologic Neurologic: Denies abnormal speech, confusion, dizziness, focal weakness, numbness, paresthesias, seizure-like activity or syncope Psychiatric Psychiatric: Denies anxiety or depression Hematologic/Lymphatic Hematologic/Lymphatic: Denies anemia, easy bleeding or easy bruising Allergic/Immunologic Allergic/Immunologic: Denies hives or asthma Vital Signs Vital Signs Vital Signs: 05/13/21 09:48 05/13/21 09:51 05/13/21 10:40 Temperature 97.2 F L 97.2 F L Temperature Source Temporal Temporal Pulse Rate 51 L 51 L Respiratory Rate 16 16 Respiratory Effort Normal Non-Labored Respiratory Pattern Normal Blood Pressure 112/53 L 112/53 L Blood Pressure Mean 72 72 Blood Pressure Source Blood Pressure Position Blood Pressure Location Pulse Ox 94 94 Oxygen Delivery Method Room Air Room Air Oxygen Flow Rate (L/min) 05/13/21 12:46 05/13/21 12:47 05/13/21 13:59 Temperature 97.0 F L 98.0 F Temperature Source Temporal Temporal Pulse Rate 59 L 66 69 Respiratory Rate 30 H 27 H 25 H Respiratory Effort Respiratory Pattern Blood Pressure 119/69 126/72 H 124/62 H Blood Pressure Mean 85 90 82 Blood Pressure Source Blood Pressure Position Blood Pressure Location Pulse Ox 84 93 92 Oxygen Delivery Method Room Air Nasal Cannula Nasal Cannula Oxygen Flow Rate (L/min) 3 3 05/13/21 15:19 05/13/21 15:45 Temperature 98.0 F 97.6 F L Temperature Source Temporal Oral Pulse Rate 67 63 Respiratory Rate 19 H 20 H Respiratory Effort Respiratory Pattern Blood Pressure 119/68 133/61 H Blood Pressure Mean 85 85 Blood Pressure Source Monitor Blood Pressure Position Semi-Fowlers Blood Pressure Location Left Arm Pulse Ox 95 94 Oxygen Delivery Method Nasal Cannula Nasal Cannula Oxygen Flow Rate (L/min) 3 3 Weight Weight: 273 lb 9.498 oz Body Mass Index (BMI) 44.1 Physical Exam Const alert, oriented x3 and no apparent distress Orientation / Consciousness: awake, oriented to person, oriented to place and oriented to time Nutritional Appearance: obese HEENT normocephalic and moist oral mucous membranes Eyes PERRL, EOMs intact bilaterally and conjunctivae normal Neck no lymphadenopathy Resp clear to auscultation bilaterally Auscultation: diminished lung sounds Cardio regular rate, regular rhythm and no murmurs Peripheral Pulses: pulses 2+ throughout GI normal to inspection, nondistended, normoactive bowel sounds, non-tender and non-distended Extremity normal to inspection Extremity Narrative: +3 bilateral lower extremity edema Skin no rashes or lesions noted Lesions: no lesions Rashes: no rashes Trauma: no lacerations or abrasions Neuro CN's II-XII intact bilaterally, no focal motor deficits, no sensory deficits noted and deep tendon reflexes 2+ bilaterally Psych mental status grossly normal and affect normal Results Lab / Micro Data Result Diagrams: 05/13/21 10:15 05/13/21 10:15 Labs: Laboratory Results - last 24 hr 05/13/21 10:15: WBC 7.2, RBC 3.97 L, Hgb 9.4 L, Hct 31.0 L, MCV 78.1 L, MCH 23.7 L, MCHC 30.3 L, RDW Std Deviation 51.5 H, RDW Coeff of Rocio 18.6 H, Plt Count 299, MPV 10.5, Immature Gran % (Auto) 0.300, Neut % (Auto) 81.4 H, Lymph % (Auto) 9.7 L, Hand % (Auto) 6.8, Eos % (Auto) 1.4, Baso % (Auto) 0.4, Absolute Neuts (auto) 5.9, Absolute Lymphs (auto) 0.70 L, Nucleated RBC % 0 05/13/21 10:15: Sodium 143, Potassium 4.1, Chloride 112 H, Carbon Dioxide 26.0, Anion Gap 5, BUN 21 H, Creatinine 1.18 H, Estim Creat Clear Calc 42.72, Est GFR (MDRD) Af Amer 59 L, Est GFR (MDRD) Non-Af 48 L, BUN/Creatinine Ratio 17.8, Glucose 141 H, Calcium 8.5, Total Bilirubin 0.60, AST 14 L, ALT 20, Alkaline Phosphatase 103, Troponin I High Sens 13, Total Protein 7.2, Albumin 3.0 L, Globulin 4.2, Albumin/Globulin Ratio 0.7 L 05/13/21 10:15: B-Natriuretic Peptide 187.3 H 05/13/21 11:17: COVID-19 (ZOE) Negative Micro: Microbiology 05/13/21 10:15 Nasal Secretion SARS-CoV-2 Antigen (Rapid) - Final Radiology Impression Chest X-Ray 05/13/21 10:30 IMPRESSION: 1. New bibasilar alveolar densities accompanied by small right pleural effusion and trace of pleural reaction on the left. The biapical pulmonary vascular markings are within normal limits, arguing that this is partial collapse or infection rather than venous congestion. 2. Stable cardiac enlargement. Electronically Signed: Mike Harvey MD at 11:33 EDT , Service support , Chest CTA 05/13/21 11:01 IMPRESSION: 1. Bilateral effusions with bilateral lower lobe consolidation which may represent atelectasis or pneumonia. 2. No evidence of pulmonary embolus. Individualized dose optimization techniques were used for this CT. at 1320 Reported and signed by: Ace Ramon MD Electronically Signed: Ace Ramon MD at 13:19 EDT Tel , Service support , Assessment & Plan Assessment/Plan (1) CHF (congestive heart failure): QUALIFIERS: Heart failure chronicity: acute Heart failure type: unspecified Qualified Code(s): I50.9 - Heart failure, unspecified (2) Pneumonia: PLAN: 1. Acute on chronic hypoxic respiratory failure secondary to acute on chronic heart failure with preserved ejection fraction, history of of cardiomyopathy with reduced ejection fraction-BNP 187. Chest CT demonstrates bilateral effusions with bilateral lobe consolidation, atelectasis versus pneumonia. No PE. Covid negative. Echocardiogram April 2021 demonstrated an EF of 55%, mild mitral valve insufficiency, RVSP estimated to be 41 mmHg. Echo December 2020 demonstrated an EF of 25%. No fever, no leukocytosis. Low suspicion for pneumonia. IV Lasix, strict I&O. Daily weight. Patient underwent heart cath December 2020 for assessment regarding cardiomyopathy and was found to have normal coronary arteries, severe systolic dysfunction with EF 25% and severely elevated right heart pressures. 2. Paroxysmal atrial fibrillation-on Eliquis, amiodarone. 3. Severe pulmonary hypertension/MORGAN-wears supplemental oxygen at nighttime. Continue home PAP regimen. 4. Hypertension-stable, continue home medication regimen. 5. Hyperlipidemia-on statin. 6. Type 2 diabetes [id number] with sliding scale insulin. Continue home insulin regimen. 7. GERD- continue PPI. 8. Morbid obesity- encouraged diet and lifestyle modifications. DVT prophylaxis- Eliquis This patient was seen by SHAILESH Can under the supervision of Dr. Wilson. Documented by User: Dr. Sameer Wilson, 05/13/21 20:11 HPI - General General Date of Admission: 05/13/21 [facility] Medical History CAD (coronary artery disease) Cardiomyopathy Diabetes GERD (gastroesophageal reflux disease) History of left heart catheterization (LHC) (~01/27/21) HTN (hypertension) Hyperlipemia MORGAN (obstructive sleep apnea) Pulmonary hypertension assoc with unclear multi-factorial mechanisms Sleep apnea Home Medications felodipine 40 mg PO DAILY 12/14/19 [History Last Taken 05/13/21 10:00] glimepiride 4 mg PO BIDCM 12/14/19 [History Last Taken 05/13/21 10:00] insulin glargine 22 unit SQ QHS 12/14/19 [History Last Taken 05/12/21 21:00] omeprazole 20 mg PO DAILY 12/14/19 [History Last Taken 05/13/21 10:00] cranberry 900 mg PO TID 01/25/21 [History Last Taken 05/13/21 10:00] multivitamin 1 tab PO DAILY 01/25/21 [History Last Taken 05/13/21 10:00] apixaban 5 mg tablet 5 mg PO BID #60 tab 02/27/21 [Rx Last Taken 05/13/21 10:00] carvedilol 12.5 mg tablet 12.5 mg PO BID #60 tab 02/27/21 [Rx Last Taken 05/13/21 10:00] digoxin 125 mcg (0.125 mg) tablet 125 mcg PO DAILY #30 tab 02/27/21 [Rx Last Taken 05/13/21 10:00] furosemide 40 mg tablet 40 mg PO DAILY #30 tab 02/27/21 [Rx Last Taken 05/13/21 10:00] hydralazine 25 mg tablet 25 mg PO TID #90 tab 02/27/21 [Rx Last Taken 05/13/21 10:00] isosorbide mononitrate 30 mg tablet,extended release 24 hr 30 mg PO DAILY #30 tab 02/27/21 [Rx Last Taken 05/13/21 10:00] simvastatin 40 mg tablet 40 mg PO QHS #90 tab 02/27/21 [Rx Last Taken 05/12/21 21:00] potassium chloride 20 mEq tablet,extended release 20 meq PO DAILY #30 tab 05/04/21 [Rx Last Taken 05/13/21 10:00] amiodarone 200 mg PO DAILY 05/13/21 [History Last Taken 05/13/21 10:00] Allergy/AdvReac Type Severity Reaction Status Date / Time lisinopril Allergy Laryngospas Verified 05/13/21 09:49 ms Family History (Updated 05/13/21 @ 16:04 by Miryam Jauregui UNDERWRITING SUPPORT MANAGER, UNDERWRITING SUPPORT MANAGER-C) Mother No history of heart disease Father No history of heart disease Surgical History History of tonsillectomy Social History (Updated 05/13/21 @ 16:04 by Miryam Jauregui NP, UNDERWRITING SUPPORT MANAGER-C) Smoking Status: Never smoker alcohol intake: never substance use type: does not use Results Lab / Micro Data Result Diagrams: 05/13/21 10:15 05/13/21 10:15 Charges/Coding Addendum Addendum: Patient was seen and examined independently of Miryam Jauregui, she came to the ER today with complaints of shortness of breath, work-up in the ER included a CTA of the chest which showed bibasilar infiltrates indicative of either infiltrates or atelectasis., Patient has no symptoms of pneumonia, she denies any chills, fever, or productive cough. On examination she appeared in good health and spirits, she does not appear to be in any distress. Vital signs as documented. Skin warm and dry and without overt rashes. Neck without JVD, thyroid appears normal, trachea is midline, neck is supple. Lungs clear, normal air movement was noted. Heart exam notable for irregular rhythm, normal sounds and absence of murmurs, rubs or gallops. Abdomen unremarkable and without evidence of organomegaly, masses, or abdominal aortic enlargement, bowel sounds are present in all 4 quadrants, no abdominal tenderness was noted. Extremities-patient has severe lymphedema of both legs, no cyanosis was noted, no clubbing was noted. Neuro: Cranial nerves II through XII are grossly intact, no focal motor deficits were noted, sensation to light touch and pinprick is intact, motor exam 5/5 throughout. Psych: Patient is alert and oriented x3, she does not appear anxious or depressed, she does not appear agitated. I believe the patient has acute on chronic diastolic CHF, I have placed her on IV Lasix and will reevaluate her tomorrow, I do not believe the patient needs IV antibiotics. Pulse ox will be monitored. I have reviewed Miryam Jauregui's history and physical including her medical assessment and plan of care and endorse it. Visit Charges Inpatient E&M: [id number] Init Hosp L3
--- NOTE | 2021-05-13 16:20 | PCS.PANDOC ---
PANDEMIC DOCUMENTATION INITIATED: Date: 05/13/2021 Time: 1538
[2021-05-13] MEDS: 0.9% Saline Lock 10 ML Syringe IV ×2 (16:54→21:06)
[2021-05-13] MEDS: Glimepiride 4 MG Tablet PO (16:55)
[2021-05-13] MEDS: Potassium Chloride Oral Tablet 20 MEQ PO (16:55)
[2021-05-13 17:21] LABS: Bedside Glucose 155 mg/dL (70-110)
[2021-05-13] MEDS: Glucerna Shake 120 ML LIQUID PO (17:29)
[2021-05-13] MEDS: hydrALAZINE 25 MG Tablet PO (21:05)
[2021-05-13] MEDS: Atorvastatin Calcium 20 MG Tablet PO (21:06)
[2021-05-13] MEDS: Carvedilol 12.5 MG Tablet PO (21:06)
[2021-05-13] MEDS: Insulin Lispro 100 UNIT/ML INSULN.PEN SC (21:06)
[2021-05-13] MEDS: APIXABAN 5 MG TABLET PO (21:06)
[2021-05-13 21:16] LABS: Bedside Glucose 199 mg/dL (70-110)
[2021-05-14] VITALS (16 sets, daily range): BP systolic 119–144; BP diastolic 58–75; PULSE 62–91; RESP 14–20; TEMP 36.4–36.8; O2SAT 95–96
--- NOTE | 2021-05-14 00:50 | CPS ---
pt on own Cpap with 2L bled into machine
[2021-05-14 06:24] LABS: Anion Gap 8 (5-15); BUN 21 mg/dL (7-18); BUN/Creat Ratio 19.6 RATIO (10-20); Calcium,Total 8.6 mg/dL (8.5-10.1); Chloride 111 mmol/L (98-107); Creatinine, Serum 1.07 mg/dL (0.55-1.02); EST Glomerular Filtration Rate 54 mL/min (>60); Est Glom Filt Rate - Afr Amer 66 mL/min (>60); Estimated Creatinine Clearance 47.11 ml/min; Glucose 117 mg/dL (74-106); Potassium 3.7 mmol/L (3.5-5.1); Sodium Level 144 mmol/L (136-145)
[2021-05-14] MEDS: 0.9% Saline Lock 10 ML Syringe IV ×3 (06:43→20:46)
[2021-05-14] MEDS: Furosemide 40 MG/4 ML Vial IV ×3 (06:43→20:49)
[2021-05-14] MEDS: hydrALAZINE 25 MG Tablet PO ×3 (06:43→20:47)
[2021-05-14 06:56] LABS: Bedside Glucose 111 mg/dL (70-110)
[2021-05-14] MEDS: Potassium Chloride Oral Tablet 20 MEQ PO ×2 (09:15→16:31)
[2021-05-14] MEDS: Glucerna Shake 120 ML LIQUID PO ×2 (09:15→11:36)
[2021-05-14] MEDS: Glimepiride 4 MG Tablet PO ×2 (09:15→16:31)
[2021-05-14] MEDS: Pantoprazole Sodium 20 MG Tablet PO (09:16)
[2021-05-14] MEDS: Carvedilol 12.5 MG Tablet PO ×2 (09:16→20:47)
[2021-05-14] MEDS: Amiodarone 200 MG Tablet PO (09:16)
[2021-05-14] MEDS: Isosorbide Mononitrate 30 MG Tablet PO (09:16)
[2021-05-14] MEDS: Digoxin 125 MCG Tablet PO (09:17)
[2021-05-14] MEDS: APIXABAN 5 MG TABLET PO ×2 (09:17→20:48)
--- NOTE | 2021-05-14 10:57 | PN.HOSP_ITS ---
Documented by User: Miryam Jauregui NP, PAINTLESS DENT REPAIR TECHNICIAN-C 05/14/21 11:05 Subjective Subjective Patient reports improvement in breathing, continues to have dyspnea with exertion however states improvement. Reports lower extremities continue to be more edematous than baseline. Denies cough, fever, chills. Objective Data Objective Data Vital Signs: Vital Signs Temp Pulse Resp BP Pulse Ox 97.5 F L 79 20 H 144/75 H 95 05/14/21 09:10 05/14/21 09:17 05/14/21 09:10 05/14/21 09:10 05/14/21 09:15 Oxygen Flow Rate (L/min) 2 Oxygen Delivery Method Nasal Cannula Weight: 273 lb 9.498 oz Body Mass Index (BMI) 44.1 Intake & Output: Intake and Output for Last 24 Hours 05/12/21 05/13/21 05/14/21 23:59 23:59 23:59 Intake Total 305 / 425 240 / 240 Output Total 700 / 700 Balance 305 / 125 -460 / -460 Lab / Micro Data Result Diagrams: 05/13/21 10:15 05/14/21 05:05 Labs: Laboratory Results - last 24 hr 05/13/21 11:17: COVID-19 (ZOE) Negative 05/13/21 16:53: POC Glucose 155 H 05/13/21 21:03: POC Glucose 199 H 05/14/21 05:05: Sodium 144, Potassium 3.7, Chloride 111 H, Carbon Dioxide 25.0, Anion Gap 8, BUN 21 H, Creatinine 1.07 H, Estim Creat Clear Calc 47.11, Est GFR (MDRD) Af Amer 66, Est GFR (MDRD) Non-Af 54 L, BUN/Creatinine Ratio 19.6, Glucose 117 H, Calcium 8.6 05/14/21 06:41: POC Glucose 111 H Micro: Microbiology 05/13/21 10:15 Nasal Secretion SARS-CoV-2 Antigen (Rapid) - Final Radiography Diagnostic Testing: Radiology Impression Chest X-Ray 05/13/21 10:30 IMPRESSION: 1. New bibasilar alveolar densities accompanied by small right pleural effusion and trace of pleural reaction on the left. The biapical pulmonary vascular markings are within normal limits, arguing that this is partial collapse or infection rather than venous congestion. 2. Stable cardiac enlargement. Electronically Signed: Mike Harvey MD at 11:33 EDT , Service support , Chest CTA 05/13/21 11:01 IMPRESSION: 1. Bilateral effusions with bilateral lower lobe consolidation which may represent atelectasis or pneumonia. 2. No evidence of pulmonary embolus. Individualized dose optimization techniques were used for this CT. at 1320 Reported and signed by: Ace Ramon MD Electronically Signed: Ace Ramon MD at 13:19 EDT Tel , Service support , Physical Exam Const alert, oriented x3 and no apparent distress Orientation / Consciousness: awake, oriented to person, oriented to place and oriented to time HEENT normocephalic and moist oral mucous membranes Eyes PERRL, EOMs intact bilaterally and conjunctivae normal Neck no lymphadenopathy Resp clear to auscultation bilaterally Auscultation: diminished lung sounds Cardio regular rate, regular rhythm and no murmurs Peripheral Pulses: pulses 2+ throughout GI normal to inspection, nondistended, normoactive bowel sounds, non-tender and n on-distended Extremity normal to inspection General Extremity: edema bilateral lower extremity Details: moderate Skin no rashes or lesions noted Lesions: no lesions Rashes: no rashes Trauma: no lacerations or abrasions Neuro CN's II-XII intact bilaterally, no focal motor deficits, no sensory deficits not ed and deep tendon reflexes 2+ bilaterally Psych mental status grossly normal and affect normal Assessment & Plan Assessment/Plan (1) CHF (congestive heart failure): QUALIFIERS: Heart failure chronicity: acute Heart failure type: unspecified Qualified Code(s): I50.9 - Heart failure, unspecified PLAN: 1. Acute on chronic hypoxic respiratory failure secondary to acute on chronic heart failure with preserved ejection fraction, history of of cardiomyopathy with reduced ejection fraction-BNP 187. Chest CT demonstrates bilateral effusions with bilateral lobe consolidation, atelectasis versus pneumonia. No PE. Covid negative. Echocardiogram April 2021 demonstrated an EF of 55%, mild mitral valve insufficiency, RVSP estimated to be 41 mmHg. Echo December 2020 demonstrated an EF of 25%. No fever, no leukocytosis. Low suspicion for pneumonia. IV Lasix, strict I&O. Daily weight. Patient underwent heart cath December 2020 for assessment regarding cardiomyopathy and was found to have normal coronary arteries, severe systolic dysfunction with EF 25% and severely elevated right heart pressures. 2. Paroxysmal atrial fibrillation-on Eliquis, amiodarone. 3. Severe pulmonary hypertension/MORGAN-wears supplemental oxygen at nighttime. Continue home PAP regimen. 4. Hypertension-stable, continue home medication regimen. 5. Hyperlipidemia-on statin. 6. Type 2 diabetes rjsumshu-Amat-Nnjmg with sliding scale insulin. Continue home insulin regimen. 7. GERD- continue PPI. 8. Morbid obesity- encouraged diet and lifestyle modifications. DVT prophylaxis- Eliquis This patient was seen by SHAILESH Can under the supervision of Dr. Wilson. Documented by User: Dr. Sameer Wilson DO 05/14/21 19:01 Objective Data Lab / Micro Data Result Diagrams: 05/13/21 10:15 05/14/21 05:05 Charges/Coding Addendum Addendum: Patient was seen and examined independently of Miryam Jauregui today, she complains of feeling fatigued, she states she has a past history of iron deficiency anemia, we checked labs today and it does appear that her last iron level was low, I have placed her on oral iron. Patient states her breathing is better today. On examination she appeared in good health and spirits, she does not appear to be in any distress. Vital signs as documented. Skin warm and dry and without overt rashes. Neck without JVD, thyroid appears normal, trachea is midline, neck is supple. Lungs clear, normal air movement was noted. Heart exam notable for regular rhythm, normal sounds and absence of murmurs, rubs or gallops. Abdomen unremarkable and without evidence of organomegaly, masses, or abdominal aortic enlargement, bowel sounds are present in all 4 quadrants, no abdominal tenderness was noted. Extremities nonedematous, no cyanosis was noted, no clubbing was noted. Neuro: Cranial nerves II through XII are grossly intact, no focal motor deficits were noted, sensation to light touch and pinprick is intact, motor exam 5/5 throughout. Psych: Patient is alert and oriented x3, she does not appear anxious or depressed, she does not appear agitated. At this time, we will continue present treatment, wean oxygen if possible. I have reviewed Miryam Jauregui's progress note including her medical assessment and plan of care and endorse it. Visit Charges Inpatient E&M: 33446 Subs Hosp L2
[2021-05-14] MEDS: Insulin Lispro 100 UNIT/ML INSULN.PEN SC ×3 (11:35→20:48)
[2021-05-14 11:50] LABS: Bedside Glucose 203 mg/dL (70-110)
[2021-05-14 13:11] LABS: Ferritin 33 ng/mL (8-252); Iron 26 ug/dL (50-170); Iron Binding Capacity,Total 373 ug/dL (250-450)
[2021-05-14 17:21] LABS: Bedside Glucose 186 mg/dL (70-110)
[2021-05-14] MEDS: Atorvastatin Calcium 20 MG Tablet PO (20:49)
[2021-05-14 21:06] LABS: Bedside Glucose 186 mg/dL (70-110)
[2021-05-15] VITALS (12 sets, daily range): BP systolic 111–140; BP diastolic 46–67; PULSE 40–77; RESP 14–18; TEMP 36.7–36.9; O2SAT 85–98
--- NOTE | 2021-05-15 04:14 | EKG12_ITS ---
Test Reason : AM EKG Blood Pressure : / mmHG Vent. Rate : 054 BPM Atrial Rate : 277 BPM P-R Int : 000 ms QRS Dur : 090 ms QT Int : 408 ms P-R-T Axes : 000 061 232 degrees QTc Int : [address] & T wave abnormality, consider inferolateral ischemia Abnormal ECG When compared with ECG of 13-MAY-2021 10:21, MANUAL COMPARISON REQUIRED, DATA IS UNCONFIRMED Confirmed by JOSEPH GUERRERO, MELIDA ([id number]), supervising editor trailer DWAYNE ESTEVES ([id number]) on 05/16/2021 10:49:26 AM Referred By: LUIS Confirmed By:MELIDA RUIZ MD
[2021-05-15] MEDS: Furosemide 40 MG/4 ML Vial IV ×2 (06:38→13:03)
[2021-05-15] MEDS: 0.9% Saline Lock 10 ML Syringe IV (06:39)
[2021-05-15 06:46] LABS: Bedside Glucose 91 mg/dL (70-110)
[2021-05-15 08:29] LABS: Anion Gap 8 (5-15); BUN 23 mg/dL (7-18); BUN/Creat Ratio 20.5 RATIO (10-20); Calcium,Total 8.4 mg/dL (8.5-10.1); Chloride 108 mmol/L (98-107); Creatinine, Serum 1.12 mg/dL (0.55-1.02); EST Glomerular Filtration Rate 51 mL/min (>60); Est Glom Filt Rate - Afr Amer 62 mL/min (>60); Glucose 91 mg/dL (74-106); Potassium 3.6 mmol/L (3.5-5.1); Sodium Level 142 mmol/L (136-145)
[2021-05-15] MEDS: Potassium Chloride Oral Tablet 20 MEQ PO (08:31)
[2021-05-15] MEDS: Glimepiride 4 MG Tablet PO (08:31)
[2021-05-15] MEDS: Ferrous Sulfate 325 MG Tablet PO ×2 (08:31→11:47)
[2021-05-15 08:45] LABS: Vitamin B12 343 pg/mL (211-911)
[2021-05-15] MEDS: Isosorbide Mononitrate 30 MG Tablet PO (10:59)
[2021-05-15] MEDS: Digoxin 125 MCG Tablet PO (10:59)
[2021-05-15] MEDS: Amiodarone 200 MG Tablet PO (10:59)
[2021-05-15] MEDS: Pantoprazole Sodium 20 MG Tablet PO (10:59)
[2021-05-15] MEDS: APIXABAN 5 MG TABLET PO (11:00)
[2021-05-15] MEDS: Carvedilol 12.5 MG Tablet PO (11:04)
--- NOTE | 2021-05-15 11:42 | DCINST_ITS ---
Discharge Instructions Diet Discharge Diet: Low fat / Low cholesterol, 8 Cup Fluid Restriction and 2000 mg Sodium Diet Activity Discharge Activity: Return to Normal Activity Dressing / Incision Call your doctor if you observe: Shortness of breath, Dizziness and Chest pain Follow Up Care Test Results: Test results from this visit will be discussed in further detail at your follow-up appointment, if applicable. Discharge Plan Admission Admit Date/Time: 05/13/21 14:11 Primary Reason for Your Visit: Heart failure Attending Provider: Sameer Wilson Primary Care Provider: Emperatriz Sepulveda Instructions Additional Instructions / Restrictions: Weigh yourself daily. If your weight increases by 2 pounds in 1 day or 5 pounds in 1 week, notify healthcare provider. Discharge Orders/Prescriptions Prescriptions: New ferrous sulfate [FeroSul] 325 mg (65 mg iron) Tablet 325 mg PO BID Qty: 60 RF: 0 potassium chloride [K-Tab] 20 mEq tablet extended release 40 meq PO DAILY Qty: 60 RF: 0 furosemide [Lasix] 40 mg tablet 40 mg PO BID Qty: 60 RF: 0 Continued Eliquis 5 mg tablet 5 mg PO BID Qty: 60 RF: 11 carvedilol [Coreg] 12.5 mg tablet 12.5 mg PO BID Qty: 60 RF: 11 digoxin 125 mcg (0.125 mg) tablet 125 mcg PO DAILY Qty: 30 RF: 11 hydralazine 25 mg tablet 25 mg PO TID Qty: 90 RF: 12 isosorbide mononitrate 30 mg tablet extended release 24 hr 30 mg PO DAILY Qty: 30 RF: 11 simvastatin 40 mg tablet 40 mg PO QHS Qty: 90 RF: 3 glimepiride 4 MG tablet 4 mg PO BIDCM RF: 0 omeprazole 20 MG capsule,delayed release(DR/EC) 20 mg PO DAILY RF: 0 felodipine 10 MG tablet extended release 24 hr 20 mg PO DAILY RF: 0 insulin glargine 100 UNIT/ML insulin pen 22 unit SQ QHS RF: 0 multivitamin Tablet 1 tab PO DAILY RF: 0 cranberry 450 mg Tablet 900 mg PO TID RF: 0 amiodarone 200 mg tablet 200 mg PO DAILY RF: 0 Discontinued furosemide [Lasix] 40 mg tablet 40 mg PO DAILY Qty: 30 RF: 11 potassium chloride 20 mEq tablet extended release 20 meq PO DAILY Qty: 30 RF: 12 Referrals / Follow Up: Emperatriz Sepulveda MD [Primary Care Provider] - In 1 Week Jah Cruz NP, TUFTING SUPERVISOR-C [Nurse Practitioner] - Within 2 Weeks Disposition Disposition (needs filled in before D/C Order can be placed): Home, Self Care
[2021-05-15] MEDS: Insulin Lispro 100 UNIT/ML INSULN.PEN SC (11:47)
--- NOTE | 2021-05-15 11:56 | PCM.DC.SUM ---
Documented by User: Miryam Jauregui NP, RESEARCH MICROBIOLOGIST-C 05/15/21 12:05 Providers Date of Admission: 05/13/21 Date of Discharge: 05/15/21 Primary Care Physician: Dr. Emperatriz Sepulveda MD Reason For Visit: HYPOXIA, CHF Diagnosis Discharge Diagnosis (1) CHF (congestive heart failure): Status: Acute Code(s): I50.9 - Heart failure, unspecified Qualifiers: Heart failure chronicity: acute Heart failure type: unspecified Qualified Code(s): I50.9 - Heart failure, unspecified Medications at Discharge Home Medications felodipine 20 mg PO DAILY 12/14/19 glimepiride 4 mg PO BIDCM 12/14/19 insulin glargine 22 unit SQ QHS 12/14/19 omeprazole 20 mg PO DAILY 12/14/19 cranberry 900 mg PO TID 01/25/21 multivitamin 1 tab PO DAILY 01/25/21 apixaban 5 mg tablet 5 mg PO BID #60 tab 02/27/21 carvedilol 12.5 mg tablet 12.5 mg PO BID #60 tab 02/27/21 digoxin 125 mcg (0.125 mg) tablet 125 mcg PO DAILY #30 tab 02/27/21 hydralazine 25 mg tablet 25 mg PO TID #90 tab 02/27/21 isosorbide mononitrate 30 mg tablet,extended release 24 hr 30 mg PO DAILY #30 tab 02/27/21 simvastatin 40 mg tablet 40 mg PO QHS #90 tab 02/27/21 amiodarone 200 mg PO DAILY 05/13/21 ferrous sulfate [FeroSul] 325 mg PO BID #60 tab 05/15/21 furosemide [Lasix] 40 mg PO BID #60 tab 05/15/21 potassium chloride [K-Tab] 40 meq PO DAILY #60 tab 05/15/21 Hospital Course Operations None Procedures None Summary of Care Provided Minutes Spent on Discharge: 35 Hospital Course: Patient is a 66-year-old female admitted 05/13/2021 due to shortness of breath. 1. Acute on chronic hypoxic respiratory failure secondary to acute on chronic heart failure with preserved ejection fraction, history of cardiomyopathy with reduced ejection fraction-BNP 187. Chest CT demonstrates bilateral effusions with bilateral lobe consolidation, atelectasis versus pneumonia. No PE. Covid negative. Echocardiogram April 2021 demonstrated an EF of 55%, mild mitral valve insufficiency, RVSP estimated to be 41 mmHg. Echo December 2020 demonstrated an EF of 25%. No fever, no leukocytosis. Low suspicion for pneumonia. Patient underwent heart cath December 2020 for assessment regarding cardiomyopathy and was found to have normal coronary arteries, severe systolic dysfunction with EF 25% and severely elevated right heart pressures. IV Lasix during admission, increase home Lasix to 40 mg twice daily at discharge. Patient will require supplemental oxygen with ambulation at discharge. She is ambulatory in the home. Continue home ABNER hose and lower extremity elevation while at rest. Follow-up with PCP and cardiology at discharge. 2. Paroxysmal atrial fibrillation-on Eliquis, amiodarone. 3. Severe pulmonary hypertension/MORGAN-wears supplemental oxygen at nighttime. Continue home PAP regimen. 4. Hypertension-stable, continue home medication regimen. 5. Hyperlipidemia-on statin. 6. Type 2 diabetes mellitus-Continue home oral and insulin regimen. 7. GERD- continue PPI. 8. Morbid obesity- encouraged diet and lifestyle modifications. 9. Chronic microcytic anemia/iron deficiency-initiated on iron supplementation. Further follow-up with PCP. Physical Exam Const alert, oriented x3 and no apparent distress Orientation / Consciousness: awake, oriented to person, oriented to place and oriented to time HEENT normocephalic and moist oral mucous membranes Eyes PERRL, EOMs intact bilaterally and conjunctivae normal Neck no lymphadenopathy Resp clear to auscultation bilaterally Auscultation: diminished lung sounds Cardio regular rate, regular rhythm and no murmurs Peripheral Pulses: pulses 2+ throughout GI normal to inspection, nondistended, normoactive bowel sounds, non-tender and non-distended Extremity normal to inspection General Extremity: edema bilateral lower extremity Details: moderate, chronic lymphedema Skin no rashes or lesions noted Lesions: no lesions Rashes: no rashes Trauma: no lacerations or abrasions Neuro CN's II-XII intact bilaterally, no focal motor deficits, no sensory deficits noted and deep tendon reflexes 2+ bilaterally Psych mental status grossly normal and affect normal Patient seen and examined prior to discharge. Physical assessment as noted above. Patient is stable for discharge with follow up recommendations as noted above. This patient was seen by SHAILESH Can under the supervision of Dr. Wilson. Weight / BMI Weight Weight: 273 lb 9.498 oz Body Mass Index (BMI) 44.1 ABG / Lab / Microbiology Data Result Diagrams: 05/13/21 10:15 05/15/21 06:25 Laboratory: Laboratory Results - last 24 hr 05/13/21 10:15: Vitamin B12 343 05/14/21 05:05: Iron 26 L, TIBC 373, Iron Saturation 7.0 L, Ferritin 33, Folate 13.30 05/14/21 16:28: POC Glucose 186 H 05/14/21 20:46: POC Glucose 186 H 05/15/21 06:25: Sodium 142, Potassium 3.6, Chloride 108 H, Carbon Dioxide 26.0, Anion Gap 8, BUN 23 H, Creatinine 1.12 H, Estim Creat Clear Calc 45.00, Est GFR (MDRD) Af Amer 62, Est GFR (MDRD) Non-Af 51 L, BUN/Creatinine Ratio 20.5 H, Glucose 91, Calcium 8.4 L 05/15/21 06:37: POC Glucose 91 Microbiology: Microbiology 05/13/21 10:15 Nasal Secretion SARS-CoV-2 Antigen (Rapid) - Final D/C Instructions Discharge Diet: Low fat / Low cholesterol, 8 Cup Fluid Restriction and 2000 mg Sodium Diet Call your doctor if you observe: Shortness of breath, Dizziness and Chest pain Meaningful Use Info Meaningful Use Diagnoses (Choose all that apply): CHF CHF MASSIEL/ARB ordered at discharge?: No Reason MASSIEL/ARB not ordered?: Not indicated Documented LVEF (%): 55 Discharge Plan Admission Admit Date/Time: 05/13/21 14:11 Primary Reason for Your Visit: Heart failure Attending Provider: Sameer Wilson Primary Care Provider: Emperatriz Sepulveda Instructions Additional Instructions / Restrictions: Weigh yourself daily. If your weight increases by 2 pounds in 1 day or 5 pounds in 1 week, notify healthcare provider. Discharge Orders/Prescriptions Prescriptions: New ferrous sulfate [FeroSul] 325 mg (65 mg iron) Tablet 325 mg PO BID Qty: 60 RF: 0 potassium chloride [K-Tab] 20 mEq tablet extended release 40 meq PO DAILY Qty: 60 RF: 0 furosemide [Lasix] 40 mg tablet 40 mg PO BID Qty: 60 RF: 0 Continued Eliquis 5 mg tablet 5 mg PO BID Qty: 60 RF: 11 carvedilol [Coreg] 12.5 mg tablet 12.5 mg PO BID Qty: 60 RF: 11 digoxin 125 mcg (0.125 mg) tablet 125 mcg PO DAILY Qty: 30 RF: 11 hydralazine 25 mg tablet 25 mg PO TID Qty: 90 RF: 12 isosorbide mononitrate 30 mg tablet extended release 24 hr 30 mg PO DAILY Qty: 30 RF: 11 simvastatin 40 mg tablet 40 mg PO QHS Qty: 90 RF: 3 glimepiride 4 MG tablet 4 mg PO BIDCM RF: 0 omeprazole 20 MG capsule,delayed release(DR/EC) 20 mg PO DAILY RF: 0 felodipine 10 MG tablet extended release 24 hr 20 mg PO DAILY RF: 0 insulin glargine 100 UNIT/ML insulin pen 22 unit SQ QHS RF: 0 multivitamin Tablet 1 tab PO DAILY RF: 0 cranberry 450 mg Tablet 900 mg PO TID RF: 0 amiodarone 200 mg tablet 200 mg PO DAILY RF: 0 Discontinued furosemide [Lasix] 40 mg tablet 40 mg PO DAILY Qty: 30 RF: 11 potassium chloride 20 mEq tablet extended release 20 meq PO DAILY Qty: 30 RF: 12 Referrals / Follow Up: Emperatriz Sepulveda MD [Primary Care Provider] - 05/19/21 9:40 am (Apt is with NANCIE Mojica ) Jah Cruz NP, RESEARCH MICROBIOLOGIST-C [Nurse Practitioner] - 05/30/21 8:30 am Disposition Disposition (needs filled in before D/C Order can be placed): Home, Self Care Documented by User: Dr. Sameer Wilson DO 05/15/21 21:20 Providers Date of Admission: 05/13/21 Reason For Visit: HYPOXIA, CHF Medications at Discharge Home Medications felodipine 20 mg PO DAILY 12/14/19 glimepiride 4 mg PO BIDCM 12/14/19 insulin glargine 22 unit SQ QHS 12/14/19 omeprazole 20 mg PO DAILY 12/14/19 cranberry 900 mg PO TID 01/25/21 multivitamin 1 tab PO DAILY 01/25/21 apixaban 5 mg tablet 5 mg PO BID #60 tab 02/27/21 carvedilol 12.5 mg tablet 12.5 mg PO BID #60 tab 02/27/21 digoxin 125 mcg (0.125 mg) tablet 125 mcg PO DAILY #30 tab 02/27/21 hydralazine 25 mg tablet 25 mg PO TID #90 tab 02/27/21 isosorbide mononitrate 30 mg tablet,extended release 24 hr 30 mg PO DAILY #30 tab 02/27/21 simvastatin 40 mg tablet 40 mg PO QHS #90 tab 02/27/21 amiodarone 200 mg PO DAILY 05/13/21 ferrous sulfate [FeroSul] 325 mg PO BID #60 tab 05/15/21 furosemide [Lasix] 40 mg PO BID #60 tab 05/15/21 potassium chloride [K-Tab] 40 meq PO DAILY #60 tab 05/15/21 ABG / Lab / Microbiology Data Result Diagrams: 05/13/21 10:15 05/15/21 06:25 Discharge Plan Admission Admit Date/Time: 05/13/21 14:11 Primary Reason for Your Visit: Heart failure Attending Provider: Sameer Wilson Primary Care Provider: Emperatriz Sepulveda Instructions Additional Instructions / Restrictions: Weigh yourself daily. If your weight increases by 2 pounds in 1 day or 5 pounds in 1 week, notify healthcare provider. Discharge Orders/Prescriptions Prescriptions: New ferrous sulfate [FeroSul] 325 mg (65 mg iron) Tablet 325 mg PO BID Qty: 60 RF: 0 potassium chloride [K-Tab] 20 mEq tablet extended release 40 meq PO DAILY Qty: 60 RF: 0 furosemide [Lasix] 40 mg tablet 40 mg PO BID Qty: 60 RF: 0 Continued Eliquis 5 mg tablet 5 mg PO BID Qty: 60 RF: 11 carvedilol [Coreg] 12.5 mg tablet 12.5 mg PO BID Qty: 60 RF: 11 digoxin 125 mcg (0.125 mg) tablet 125 mcg PO DAILY Qty: 30 RF: 11 hydralazine 25 mg tablet 25 mg PO TID Qty: 90 RF: 12 isosorbide mononitrate 30 mg tablet extended release 24 hr 30 mg PO DAILY Qty: 30 RF: 11 simvastatin 40 mg tablet 40 mg PO QHS Qty: 90 RF: 3 glimepiride 4 MG tablet 4 mg PO BIDCM RF: 0 omeprazole 20 MG capsule,delayed release(DR/EC) 20 mg PO DAILY RF: 0 felodipine 10 MG tablet extended release 24 hr 20 mg PO DAILY RF: 0 insulin glargine 100 UNIT/ML insulin pen 22 unit SQ QHS RF: 0 multivitamin Tablet 1 tab PO DAILY RF: 0 cranberry 450 mg Tablet 900 mg PO TID RF: 0 amiodarone 200 mg tablet 200 mg PO DAILY RF: 0 Discontinued furosemide [Lasix] 40 mg tablet 40 mg PO DAILY Qty: 30 RF: 11 potassium chloride 20 mEq tablet extended release 20 meq PO DAILY Qty: 30 RF: 12 Referrals / Follow Up: Emperatriz Sepulveda MD [Primary Care Provider] - 05/19/21 9:40 am (Apt is with RESEARCH MICROBIOLOGIST Anay Mojica ) Jah Cruz NP, RESEARCH MICROBIOLOGIST-C [Nurse Practitioner] - 05/30/21 8:30 am Disposition Disposition (needs filled in before D/C Order can be placed): Home, Self Care Charges/Coding Addendum Addendum: Patient was seen and examined independently from Miryam Jauregui today, she appears stable for discharge today, she requires O2 at 3 L to maintain her pulse ox on ambulation. Patient does not require oxygen at rest however. On examination she appeared in good health and spirits, she does not appear to be in any distress. Vital signs as documented. Skin warm and dry and without overt rashes. Neck without JVD, thyroid appears normal, trachea is midline, neck is supple. Lungs clear, normal air movement was noted. Heart exam notable for regular rhythm, normal sounds and absence of murmurs, rubs or gallops. Abdomen unremarkable and without evidence of organomegaly, masses, or abdominal aortic enlargement, bowel sounds are present in all 4 quadrants, no abdominal tenderness was noted. Extremities severe leg lymphedema was noted bilaterally, no cyanosis was noted, no clubbing was noted. Neuro: Cranial nerves II through XII are grossly intact, no focal motor deficits were noted, sensation to light touch and pinprick is intact, motor exam 5/5 throughout. Psych: Patient is alert and oriented x3, she does not appear anxious or depressed, she does not appear agitated. Patient appears stable for discharge at this time, I have reviewed Miryam Jauregui's discharge summary including her medical assessment and plan of care and endorse it. Visit Charges Inpatient E&M: 49469 Disch Hosp
--- NOTE | 2021-05-15 12:00 | CASEMGMT ---
RAQUEL RIOJAS assessment: Face to Face with patient for initial transition planning/care coordination assessment. RAQUEL RIOJAS introduced self and role at [facility], pt voices understanding and consents to assessment. Pt is sitting up in bed in no distress. Pt is A/Ox4 and answers all questions appropriately. Care providers, pharmacy, and demographics verified. Presentation: Pt c/o back discomfort, weakness, SOB Admitting dx: Hypoxia, CHF PCP: Derick Specialists: Samir, cardio; Margaret pulshauna Preferred Pharmacy: [facility] Insurance: [facility] Prescription Benefit: HumR Living Will/HPOA: Pt states has LW/HPOA and is aware that they are on file at [facility]. Pt states her son, Martínez Allen, is HPOA. LNOK: Martínez Allen, son/HPOA; Jah Allen, son Living Arrangements: Pt lives alone in 2 story home and states no concerns at home. Pt is independent with ADL's. Transportation: Pt states drives self and states no transportation concerns. DME/HHC: Pt states has the following DME: grab bars and cpap w/ 2L bleed in thru [employer]. Pt is aware of need for home oxygen and after provided DME list, pt states would like [employer]. Pt states would like to switch to [employer] for all her equipment as she was with them in the past. Referral faxed to [employer] for home oxygen, 3L w/ ambulation and [facility] updated that pt would like to transfer all equipment to them, voices understanding. Pt aware that she will need to f/u with [employer] so they can get permission to tranfer equipment. Pt states no hx of HHC or SNF. Pt states no concerns with going home at time of discharge. Pt is retired. Pt states does not smoke cigarettes or drink ETOH. Pt states no further concerns/needs. CM to follow any further discharge planning/needs. Advised pt to ask for CM if any further questions/concerns/needs arise, voices understanding. Pt Goal: Home Plan: Home w/ O2. [place] RAQUEL RIOJAS
--- NOTE | 2021-05-15 12:13 | PHA.DC.MC ---
Pharmacy Service has performed discharge medication reconciliation and counseling for this patient. 1. FERROUS SULFATE 325MG PO BID The patient's discharge medication list was reviewed for discrepancies and discrepancies were resolved. Home Medications felodipine 20 mg PO DAILY 12/14/19 glimepiride 4 mg PO BIDCM 12/14/19 insulin glargine 22 unit SQ QHS 12/14/19 omeprazole 20 mg PO DAILY 12/14/19 cranberry 900 mg PO TID 01/25/21 multivitamin 1 tab PO DAILY 01/25/21 apixaban 5 mg tablet 5 mg PO BID #60 tab 02/27/21 carvedilol 12.5 mg tablet 12.5 mg PO BID #60 tab 02/27/21 digoxin 125 mcg (0.125 mg) tablet 125 mcg PO DAILY #30 tab 02/27/21 hydralazine 25 mg tablet 25 mg PO TID #90 tab 02/27/21 isosorbide mononitrate 30 mg tablet,extended release 24 hr 30 mg PO DAILY #30 tab 02/27/21 simvastatin 40 mg tablet 40 mg PO QHS #90 tab 02/27/21 amiodarone 200 mg PO DAILY 05/13/21 ferrous sulfate [FeroSul] 325 mg PO BID #60 tab 05/15/21 furosemide [Lasix] 40 mg PO BID #60 tab 05/15/21 potassium chloride [K-Tab] 40 meq PO DAILY #60 tab 05/15/21 The patient was counseled on the following discharge medications and changes in medications for homegoing were reviewed. The Reason for Use, instructions for use, and potential side effects were reviewed for all new medications. The patient's questions regarding all of their medications were answered. The patient was able to verbally demonstrate an understanding of their discharge medications.
[2021-05-15 12:21] LABS: Bedside Glucose 198 mg/dL (70-110)
[2021-05-15] MEDS: hydrALAZINE 25 MG Tablet PO (13:05)
--- NOTE | 2021-05-15 16:15 | NURSING ---
This RN reviewed SN charting
--- NOTE | 2021-05-16 14:13 | CASEMGMT ---
RAQUEL RIOJAS Discharge Follow-up Phone Call: RUTH: Suki Strata: 3 Call Date: 05/16/21 Discharge Date: 05/15/21 Time of Call: 1410 Duration: 3 min Admitting Diagnosis: Hypoxia CHF RN SHINE completed follow-up phone call after recent hospitalization. Patient states he is doing well. Patient was able to fill prescriptions without difficulty. Patient has follow-up appt scheduled. Patient states that her oxygen was delivered this morning and is doing well. Patient had no further questions or concerns at this time.
== END 2021-05-15 17:12 | disposition home or self-care (01) | DRG 291 ==
LOC: ED 14:01 → PCU 14:15
PROVIDERS: Nurse Practitioner Family; Admitting Provider Internal Medicine; Emergency Provider Emergency Medicine; PCP Internal Medicine; Visit Provider Internal Medicine
DX: I11.0 Hypertensive heart disease with heart failure (principal); J96.21 Acute and chronic respiratory failure with hypoxia; Z68.41 Body mass index [BMI] 40.0-44.9, adult; I50.33 Acute on chronic diastolic (congestive) heart failure; I27.20 Pulmonary hypertension, unspecified; I48.0 Paroxysmal atrial fibrillation; I42.9 Cardiomyopathy, unspecified; I25.10 Atherosclerotic heart disease of native coronary artery without angina pectoris; Z20.822 Contact with and (suspected) exposure to COVID-19; I89.0 Lymphedema, not elsewhere classified; E11.9 Type 2 diabetes mellitus without complications; D50.9 Iron deficiency anemia, unspecified; E78.5 Hyperlipidemia, unspecified; K21.9 Gastro-esophageal reflux disease without esophagitis; G47.33 Obstructive sleep apnea (adult) (pediatric); E66.01 Morbid (severe) obesity due to excess calories; Z79.01 Long term (current) use of anticoagulants; Z79.4 Long term (current) use of insulin; Z79.899 Other long term (current) drug therapy
CPT/HCPCS: 36415; 71045; 71275; 80048; 80053; 82607; 82728; 82746; 82962; 83540; 83550; 83880; 84484; 85025; 87426; 87635; 93005; 97802; 99284; J7030; Q9967; U0005; A4216; J1940; U0003

== ENCOUNTER → 2022-01-23 | Outpatient (CLI) | payer MEDICARE, SELFPAY | END | disposition home or self-care (01) | LOC: PSN 10:40 | PROVIDERS: PCP Internal Medicine; Visit Provider Internal Medicine Cardiovascular Disease | DX: I48.91 Unspecified atrial fibrillation (principal) | CPT/HCPCS: 93225; 93226 ==

== ENCOUNTER 2025-03-22 20:52 | Inpatient (IN) | payer MEDICARE, SELFPAY ==
[2025-03-22 20:59] VITALS: BP 156/80; PULSE 102; RESP 30; TEMP 37.6; O2SAT 100; BMI 40.1
[2025-03-22 21:00] VITALS: BP 140/80; PULSE 105; RESP 32; TEMP 37.6; O2SAT 100
[2025-03-22 21:10] VITALS: O2SAT 95
--- NOTE | 2025-03-22 21:10 | ED.RN ---
VO received from Dr. Crowder for sepsis protocol
--- NOTE | 2025-03-22 21:10 | EKG12_ITS ---
Test Reason : DYSRHYTHMIA Blood Pressure : */* mmHG Vent. Rate : 141 BPM Atrial Rate : * BPM P-R Int : * ms QRS Dur : 88 ms QT Int : 328 ms P-R-T Axes : * 62 60 degrees QTcB Int : 502 ms Critical Test Result: High HR Atrial fibrillation with rapid ventricular response Nonspecific ST and T wave abnormality Abnormal ECG Confirmed by Milton Linton ([id number]), video editor JANETT HARRELL ([id number]) on 03/23/2025 1:32:38 PM Referred By: JT Confirmed By: Milton Linton
--- NOTE | 2025-03-22 21:44 | RAD_ITS ---
PROCEDURE: CHEST 1 VIEW (PORTABLE) 03/22/2025 REASON FOR EXAM: SEPSIS TECHNIQUE: Frontal view of the chest. COMPARISON: None FINDINGS: Mild pulmonary edema although multifocal pneumonia not entirely excluded. No pleural effusion or pneumothorax. Moderate cardiomegaly. Calcified aortic arch. RAD/Chest 1 View (Portable) IMPRESSION: Mild pulmonary edema although multifocal pneumonia not entirely excluded. Mode rate cardiomegaly. Reading Location: [id number]
[2025-03-22 22:05] LABS: Hematocrit 36.7 % (37-47); Hemoglobin 11.9 g/dL (12.0-15.0); Immature Granulocytes Count 0.470 X10^3/uL (0.0-0.0); Mean Corp Hgb Conc 32.4 g/dL (32-36); Mean Corpuscular Volume 89.3 fL (81-99); Mean Platelet Vol. 11.4 fl (6.2-12.0); NRBC Flagged by Analyzer 0 % (0-5); POSITIVE DIFFERENTIAL YES; POSITIVE MORPHOLOGY YES; Platelet Count 200 K/mm3 (150-450); RBC Distribution Width CV 13.9 % (11.6-14.6); RBC Distribution Width SD 45.5 fl (35.1-43.9); Red Blood Count 4.11 M/mm3 (4.2-5.4); White Blood Count 26.6 K/mm3 (4.4-11.0)
[2025-03-22 22:06] LABS: Differential Indicated SCAN CRITERIA MET
[2025-03-22 22:16] LABS: Prothrombin Time (Protime)PT. 22.0 SECONDS (11.7-14.9)
[2025-03-22 22:17] LABS: Partial Thromboplast Time 42.2 Seconds (24.1-36.2)
--- NOTE | 2025-03-22 22:20 | EX.ED.DYSGE1 ---
HPI History of Present Illness Chief Complaint: Weakness Narrative Narrative: Patient is a 69-year-old female with past medical history of type 2 diabetes, hyperlipidemia, hypertension, MORGAN, CAD, cardiomyopathy, atrial fibrillation on Eliquis, GERD who presented to the emergency department with a chief complaint of generalized weakness and feeling unwell overall. Patient states that she has been feeling not well for the last few days denies any recent sick contacts. [facility] Medical History Type 2 diabetes mellitus Mixed hyperlipidemia Atherosclerotic heart disease of [place] coronary artery without angina pectoris Essential hypertension Pulmonary hypertension assoc with unclear multi-factorial mechanisms MORGAN (obstructive sleep apnea) CAD (coronary artery disease) Cardiomyopathy History of left heart catheterization (LHC) (~01/27/21) Sleep apnea GERD (gastroesophageal reflux disease) Diabetes Home Medications Medication Instructions Recorded Last Taken Type felodipine 10 mg tablet,extended 20 mg PO DAILY High BP 12/14/19 05/13/21 10:00 History release 24 hr glimepiride 4 mg tablet 4 mg PO BIDCM Diabetes 12/14/19 05/13/21 10:00 History omeprazole 20 mg capsule,delayed 20 mg PO DAILY GERD 12/14/19 05/13/21 10:00 History release multivitamin 1 tab PO DAILY SUPPLEMENT 01/25/21 05/13/21 10:00 History simvastatin 40 mg tablet 40 mg PO QHS #90 tabs 02/27/21 05/12/21 21:00 Rx insulin glargine 100 unit/mL (3 18 unit subcut QHS DM 12/25/21 Unknown History mL) subcutaneous pen ferrous sulfate 325 mg (65 mg 325 mg PO DAILY 07/09/23 Unknown History iron) tablet (FeroSul) furosemide 40 mg tablet See Rx Instructions .Route 08/28/23 Unknown Rx .COMPLEX #180 tabs cholecalciferol (vitamin D3) 50 50 mcg PO DAILY 02/11/24 Unknown History mcg (2,000 unit) capsule apixaban 5 mg tablet (Eliquis) 5 mg PO BID #60 tabs 05/12/24 Unknown Rx carvedilol 12.5 mg tablet See Rx Instructions .Route 07/27/24 Unknown Rx .COMPLEX #180 tabs hydralazine 25 mg tablet 25 mg PO TID #270 tabs 11/11/24 Unknown Rx potassium chloride 20 mEq 20 meq PO BID 02/04/25 Unknown History tablet,extended release (K-Tab) digoxin 125 mcg (0.125 mg) tablet 125 mcg PO DAILY #90 tabs 03/01/25 Unknown Rx isosorbide mononitrate 30 mg 30 mg PO DAILY #90 tabs 03/01/25 Unknown Rx tablet,extended release 24 hr Allergy/AdvReac Type Severity Reaction Status Date / Time lisinopril Allergy Laryngospas Verified 02/04/25 14:13 ms Family History Mother No history of heart disease Father No history of heart disease Surgical History History of tonsillectomy Social History Smoking Status: Never smoker alcohol intake: never substance use type: does not use ROS ROS ED ROS Narrative Constitutional: Complains of chills and generalized fatigue denies headache, lightness or dizziness Eyes: Denies double vision blurry vision Cardiovascular: Denies chest pain Respiratory: Denies shortness of breath Abdomen: Denies abdominal pain nausea vomiting diarrhea : Denies any urinary symptoms Neurological: Denies any numbness, weakness, tingling Musculoskeletal: Complains of left lower extremity redness EXAM Physical Exam Narrative Exam Narrative: General: Patient was lying in bed rest comfortably did not appear to be acute distress Head: Atraumatic, normocephalic Eyes: PERRL bilaterally, EOMI bilateral, no conjunctival injection noted Neck: Soft, supple, trachea midline Cardiovascular: Patient tachycardic with a irregular irregular rhythm Respiratory: Clear to auscultation bilaterally Abdomen: Soft, nondistended, no tenderness to palpation Extremities: +4/5 strength noted in the bilateral upper and lower extremities, patient has what appears to be lymphedema in her lower extremities Neurological: Patient follow commands and that she was at [facility] the year is 2024 Skin: Patient has evidence of cellulitis on the left lower extremity Const Vital Signs: 03/22/25 20:59 03/22/25 21:00 03/22/25 21:02 Temperature 99.7 F H 99.7 F H Temperature Source Oral Oral Pulse Rate 102 H 105 H Respiratory Rate 30 H 32 H Respiratory Effort Normal Respiratory Pattern Normal Blood Pressure 156/80 H 140/80 H Blood Pressure Mean 105 100 Pulse Ox 100 100 Oxygen Delivery Method Room Air Room Air 03/22/25 21:10 03/22/25 21:18 03/22/25 22:48 Temperature 100.5 F H Temperature Source Oral Pulse Rate 85 Respiratory Rate 24 H Respiratory Effort Respiratory Pattern Blood Pressure 143/84 H Blood Pressure Mean 103 Pulse Ox 95 100 Oxygen Delivery Method Room Air Room Air Room Air Sepsis Attestation Sepsis Organ Dysfunction Criteria Present: Lactic Acid > 2 mmol/L MDM MDM MDM Narrative Medical decision making narrative: Patient is a 69-year-old female who presented to the emerged part with chief complaint of generalized weakness and overall not feeling well. Protocol was entered and started prior to my evaluation. On the differential diagnosis includes but not limited to cellulitis, UTI, pneumonia, electrolyte abnormality, anemia. Once workup is obtained and reviewed she will be reevaluated. Patient will be given 30 cc/kg bolus of IV fluids based on ideal body weight as her BMI is greater than 40 she will be given a total of 2500 mL. Did review her previous echocardiogram from 04/21/2021 which showed ejection fraction of of 55% and they were unable to do assess diastolic dysfunction at that point in time. Patient will be given 2 g Rocephin as well which was ordered at 2217. Patient CBC reviewed and showed a leukocytosis of 26,000, hemoglobin 11.9, plate count of 200. Patient's INR 1.9, PT of 22. Patient sodium was 137, potassium normal at 4.1, patient had anion gap of 16 with a carbon dioxide level low at 20.2. Patient creatinine was 1.24 she has underlying chronic kidney disease. Patient glucose was 120, lactic acid 2.5. Patient's AST and ALT are 21 and 23 respectively. Patient's proBNP was 31,913 which is consistent with her chest x-ray which was reviewed by myself and by radiology which showed concern for interstitial edema vascular congestion as well as possible multifocal pneumonia. Given concern for also multifocal pneumonia azithromycin was added on as well at 2225. Patient was noted be febrile was given a gram of Tylenol. Patient's EKG reviewed and showed atrial fibrillation with a rapid ventricular response of 141 bpm however her heart rate has now normalized without any other interventions outside of Tylenol and fluids. There is also concern that she has a left lower extremity cellulitis. Did discuss case with hospitalist Dr. Archer who accept patient for admission. Notified the patient and family was at bedside they are agreeable to plan all question concerns answered. Lab Data Labs: Laboratory Results - last 24 hr 03/22/25 03/22/25 03/22/25 21:20 21:20 21:20 WBC Cancelled 26.6 H Corrected WBC Cancelled RBC Cancelled 4.11 L Hgb Cancelled Hct MCV MCH MCHC RDW Std Deviation RDW Coeff of Rocio Plt Count MPV Immature Gran % (Auto) Neut % (Auto) Lymph % (Auto) [place] % (Auto) Eos % (Auto) Baso % (Auto) Absolute Neuts (auto) Absolute Lymphs (auto) Total Counted Neutrophils % (Manual) Band Neutrophils % Lymphocytes % (Manual) Monocytes % (Manual) Eosinophils % (Manual) Basophils % (Manual) Metamyelocytes % Myelocytes % Promyelocytes % Blast Cells % Plasma Cell % (Manual) Other Cells % Nucleated RBC % Nucleated RBCs/100 WBC Differential Comment Diff Path Review Hypersegmented Neuts Atypical Lymphocytes Reactive Lymphocytes Smudge Cells Toxic Granulation Toxic Vacuolation Dohle Bodies Goran Rods Platelet Estimate Plt Morphology Comment RBC Morphology Polychromasia Hypochromasia Basophilic Stippling Anisocytosis Microcytosis Macrocytosis Spherocytes Sickle Cells Target Cells Tear Drop Cells Ovalocytes Stomatocytes Phan-[place] Bodies [place] Cells Bite Cells Crenated Cell Acanthocytes (Spur) Rouleaux Schistocytes PT INR APTT Sodium Potassium Chloride Carbon Dioxide Anion Gap BUN Creatinine Estim Creat Clear Calc Est GFR (MDRD) Non-Af BUN/Creatinine Ratio Glucose Lactic Acid Calcium Total Bilirubin AST ALT Alkaline Phosphatase NT pro BNP II Total Protein Albumin Globulin Albumin/Globulin Ratio 03/22/25 03/22/25 03/22/25 21:20 21:20 21:20 WBC Corrected WBC RBC Hgb 11.9 L Hct Cancelled 36.7 L MCV Cancelled 89.3 MCH Cancelled MCHC RDW Std Deviation RDW Coeff of Rocio Plt Count MPV Immature Gran % (Auto) Neut % (Auto) Lymph % (Auto) [place] % (Auto) Eos % (Auto) Baso % (Auto) Absolute Neuts (auto) Absolute Lymphs (auto) Total Counted Neutrophils % (Manual) Band Neutrophils % Lymphocytes % (Manual) Monocytes % (Manual) Eosinophils % (Manual) Basophils % (Manual) Metamyelocytes % Myelocytes % Promyelocytes % Blast Cells % Plasma Cell % (Manual) Other Cells % Nucleated RBC % Nucleated RBCs/100 WBC Differential Comment Diff Path Review Hypersegmented Neuts Atypical Lymphocytes Reactive Lymphocytes Smudge Cells Toxic Granulation Toxic Vacuolation Dohle Bodies Goran Rods Platelet Estimate Plt Morphology Comment RBC Morphology Polychromasia Hypochromasia Basophilic Stippling Anisocytosis Microcytosis Macrocytosis Spherocytes Sickle Cells Target Cells Tear Drop Cells Ovalocytes Stomatocytes Phan-[place] Bodies [place] Cells Bite Cells Crenated Cell Acanthocytes (Spur) Rouleaux Schistocytes PT INR APTT Sodium Potassium Chloride Carbon Dioxide Anion Gap BUN Creatinine Estim Creat Clear Calc Est GFR (MDRD) Non-Af BUN/Creatinine Ratio Glucose Lactic Acid Calcium Total Bilirubin AST ALT Alkaline Phosphatase NT pro BNP II Total Protein Albumin Globulin Albumin/Globulin Ratio 03/22/25 03/22/25 03/22/25 21:20 21:20 21:20 WBC Corrected WBC RBC Hgb Hct MCV MCH 29.0 MCHC Cancelled 32.4 RDW Std Deviation Cancelled 45.5 H RDW Coeff of Rocio Cancelled Plt Count MPV Immature Gran % (Auto) Neut % (Auto) Lymph % (Auto) [place] % (Auto) Eos % (Auto) Baso % (Auto) Absolute Neuts (auto) Absolute Lymphs (auto) Total Counted Neutrophils % (Manual) Band Neutrophils % Lymphocytes % (Manual) Monocytes % (Manual) Eosinophils % (Manual) Basophils % (Manual) Metamyelocytes % Myelocytes % Promyelocytes % Blast Cells % Plasma Cell % (Manual) Other Cells % Nucleated RBC % Nucleated RBCs/100 WBC Differential Comment Diff Path Review Hypersegmented Neuts Atypical Lymphocytes Reactive Lymphocytes Smudge Cells Toxic Granulation Toxic Vacuolation Dohle Bodies Goran Rods Platelet Estimate Plt Morphology Comment RBC Morphology Polychromasia Hypochromasia Basophilic Stippling Anisocytosis Microcytosis Macrocytosis Spherocytes Sickle Cells Target Cells Tear Drop Cells Ovalocytes Stomatocytes Phan-[place] Bodies [place] Cells Bite Cells Crenated Cell Acanthocytes (Spur) Rouleaux Schistocytes PT INR APTT Sodium Potassium Chloride Carbon Dioxide Anion Gap BUN Creatinine Estim Creat Clear Calc Est GFR (MDRD) Non-Af BUN/Creatinine Ratio Glucose Lactic Acid Calcium Total Bilirubin AST ALT Alkaline Phosphatase NT pro BNP II Total Protein Albumin Globulin Albumin/Globulin Ratio 03/22/25 03/22/25 03/22/25 21:20 21:20 21:20 WBC Corrected WBC RBC Hgb Hct MCV MCH MCHC RDW Std Deviation RDW Coeff of Rocio 13.9 Plt Count Cancelled 200 MPV Cancelled 11.4 Immature Gran % (Auto) Cancelled Neut % (Auto) Lymph % (Auto) [place] % (Auto) Eos % (Auto) Baso % (Auto) Absolute Neuts (auto) Absolute Lymphs (auto) Total Counted Neutrophils % (Manual) Band Neutrophils % Lymphocytes % (Manual) Monocytes % (Manual) Eosinophils % (Manual) Basophils % (Manual) Metamyelocytes % Myelocytes % Promyelocytes % Blast Cells % Plasma Cell % (Manual) Other Cells % Nucleated RBC % Nucleated RBCs/100 WBC Differential Comment Diff Path Review Hypersegmented Neuts Atypical Lymphocytes Reactive Lymphocytes Smudge Cells Toxic Granulation Toxic Vacuolation Dohle Bodies Goran Rods Platelet Estimate Plt Morphology Comment RBC Morphology Polychromasia Hypochromasia Basophilic Stippling Anisocytosis Microcytosis Macrocytosis Spherocytes Sickle Cells Target Cells Tear Drop Cells Ovalocytes Stomatocytes Phan-[place] Bodies [place] Cells Bite Cells Crenated Cell Acanthocytes (Spur) Rouleaux Schistocytes PT INR APTT Sodium Potassium Chloride Carbon Dioxide Anion Gap BUN Creatinine Estim Creat Clear Calc Est GFR (MDRD) Non-Af BUN/Creatinine Ratio Glucose Lactic Acid Calcium Total Bilirubin AST ALT Alkaline Phosphatase NT pro BNP II Total Protein Albumin Globulin Albumin/Globulin Ratio 03/22/25 03/22/25 03/22/25 21:20 21:20 21:20 WBC Corrected WBC RBC Hgb Hct MCV MCH MCHC RDW Std Deviation RDW Coeff of Rocio Plt Count MPV Immature Gran % (Auto) 1.800 H Neut % (Auto) Cancelled 92.9 H Lymph % (Auto) Cancelled 2.3 L [place] % (Auto) Cancelled Eos % (Auto) Baso % (Auto) Absolute Neuts (auto) Absolute Lymphs (auto) Total Counted Neutrophils % (Manual) Band Neutrophils % Lymphocytes % (Manual) Monocytes % (Manual) Eosinophils % (Manual) Basophils % (Manual) Metamyelocytes % Myelocytes % Promyelocytes % Blast Cells % Plasma Cell % (Manual) Other Cells % Nucleated RBC % Nucleated RBCs/100 WBC Differential Comment Diff Path Review Hypersegmented Neuts Atypical Lymphocytes Reactive Lymphocytes Smudge Cells Toxic Granulation Toxic Vacuolation Dohle Bodies Goran Rods Platelet Estimate Plt Morphology Comment RBC Morphology Polychromasia Hypochromasia Basophilic Stippling Anisocytosis Microcytosis Macrocytosis Spherocytes Sickle Cells Target Cells Tear Drop Cells Ovalocytes Stomatocytes Phan-[place] Bodies [place] Cells Bite Cells Crenated Cell Acanthocytes (Spur) Rouleaux Schistocytes PT INR APTT Sodium Potassium Chloride Carbon Dioxide Anion Gap BUN Creatinine Estim Creat Clear Calc Est GFR (MDRD) Non-Af BUN/Creatinine Ratio Glucose Lactic Acid Calcium Total Bilirubin AST ALT Alkaline Phosphatase NT pro BNP II Total Protein Albumin Globulin Albumin/Globulin Ratio 03/22/25 03/22/25 03/22/25 21:20 21:20 21:20 WBC Corrected WBC RBC Hgb Hct MCV MCH MCHC RDW Std Deviation RDW Coeff of Rocio Plt Count MPV Immature Gran % (Auto) Neut % (Auto) Lymph % (Auto) [place] % (Auto) 2.7 Eos % (Auto) Cancelled 0.0 Baso % (Auto) Cancelled 0.3 Absolute Neuts (auto) Cancelled Absolute Lymphs (auto) Total Counted Neutrophils % (Manual) Band Neutrophils % Lymphocytes % (Manual) Monocytes % (Manual) Eosinophils % (Manual) Basophils % (Manual) Metamyelocytes % Myelocytes % Promyelocytes % Blast Cells % Plasma Cell % (Manual) Other Cells % Nucleated RBC % Nucleated RBCs/100 WBC Differential Comment Diff Path Review Hypersegmented Neuts Atypical Lymphocytes Reactive Lymphocytes Smudge Cells Toxic Granulation Toxic Vacuolation Dohle Bodies Goran Rods Platelet Estimate Plt Morphology Comment RBC Morphology Polychromasia Hypochromasia Basophilic Stippling Anisocytosis Microcytosis Macrocytosis Spherocytes Sickle Cells Target Cells Tear Drop Cells Ovalocytes Stomatocytes Phan-[place] Bodies [place] Cells Bite Cells Crenated Cell Acanthocytes (Spur) Rouleaux Schistocytes PT INR APTT Sodium Potassium Chloride Carbon Dioxide Anion Gap BUN Creatinine Estim Creat Clear Calc Est GFR (MDRD) Non-Af BUN/Creatinine Ratio Glucose Lactic Acid Calcium Total Bilirubin AST ALT Alkaline Phosphatase NT pro BNP II Total Protein Albumin Globulin Albumin/Globulin Ratio 03/22/25 03/22/25 03/22/25 21:20 21:20 21:20 WBC Corrected WBC RBC Hgb Hct MCV MCH MCHC RDW Std Deviation RDW Coeff of Rocio Plt Count MPV Immature Gran % (Auto) Neut % (Auto) Lymph % (Auto) [place] % (Auto) Eos % (Auto) Baso % (Auto) Absolute Neuts (auto) 24.7 H Absolute Lymphs (auto) Cancelled 0.62 L Total Counted Cancelled Neutrophils % (Manual) Cancelled Band Neutrophils % Cancelled Lymphocytes % (Manual) Cancelled Monocytes % (Manual) Cancelled Eosinophils % (Manual) Cancelled Basophils % (Manual) Cancelled Metamyelocytes % Cancelled Myelocytes % Cancelled Promyelocytes % Cancelled Blast Cells % Cancelled Plasma Cell % (Manual) Cancelled Other Cells % Cancelled Nucleated RBC % Cancelled 0 Nucleated RBCs/100 WBC Cancelled Differential Comment Cancelled Diff Path Review Cancelled Hypersegmented Neuts Cancelled Atypical Lymphocytes Cancelled Reactive Lymphocytes Cancelled Smudge Cells Cancelled Toxic Granulation Cancelled Toxic Vacuolation Cancelled Dohle Bodies Cancelled Goran Rods Cancelled Platelet Estimate Cancelled Plt Morphology Comment Cancelled RBC Morphology Cancelled Polychromasia Hypochromasia Basophilic Stippling Anisocytosis Microcytosis Macrocytosis Spherocytes Sickle Cells Target Cells Tear Drop Cells Ovalocytes Stomatocytes Phan-[place] Bodies [place] Cells Bite Cells Crenated Cell Acanthocytes (Spur) Rouleaux Schistocytes PT INR APTT Sodium Potassium Chloride Carbon Dioxide Anion Gap BUN Creatinine Estim Creat Clear Calc Est GFR (MDRD) Non-Af BUN/Creatinine Ratio Glucose Lactic Acid Calcium Total Bilirubin AST ALT Alkaline Phosphatase NT pro BNP II Total Protein Albumin Globulin Albumin/Globulin Ratio 03/22/25 21:20 WBC Corrected WBC RBC Hgb Hct MCV MCH MCHC RDW Std Deviation RDW Coeff of Rocio Plt Count MPV Immature Gran % (Auto) Neut % (Auto) Lymph % (Auto) [place] % (Auto) Eos % (Auto) Baso % (Auto) Absolute Neuts (auto) Absolute Lymphs (auto) Total Counted Neutrophils % (Manual) Band Neutrophils % Lymphocytes % (Manual) Monocytes % (Manual) Eosinophils % (Manual) Basophils % (Manual) Metamyelocytes % Myelocytes % Promyelocytes % Blast Cells % Plasma Cell % (Manual) Other Cells % Nucleated RBC % Nucleated RBCs/100 WBC Differential Comment Diff Path Review Hypersegmented Neuts Atypical Lymphocytes Reactive Lymphocytes Smudge Cells Toxic Granulation Toxic Vacuolation Dohle Bodies Goran Rods Platelet Estimate Plt Morphology Comment RBC Morphology Cancelled Polychromasia Cancelled Hypochromasia Cancelled Basophilic Stippling Cancelled Anisocytosis Cancelled Microcytosis Cancelled Macrocytosis Cancelled Spherocytes Cancelled Sickle Cells Cancelled Target Cells Cancelled Tear Drop Cells Cancelled Ovalocytes Cancelled Stomatocytes Cancelled Phan-[place] Bodies Cancelled [place] Cells Cancelled Bite Cells Cancelled Crenated Cell Cancelled Acanthocytes (Spur) Cancelled Rouleaux Cancelled Schistocytes Cancelled PT 22.0 H INR 1.9 APTT 42.2 H Sodium 137 Potassium 4.1 Chloride 101 Carbon Dioxide 20.2 L Anion Gap 16 H BUN 31 H Creatinine 1.24 H Estim Creat Clear Calc 52.99 Est GFR (MDRD) Non-Af 47 L BUN/Creatinine Ratio 25.0 H Glucose 120 H Lactic Acid 2.5 H* Calcium 9.4 Total Bilirubin 0.91 AST 61 H ALT 23 Alkaline Phosphatase 108 [place] [address] H Total Protein 7.9 Albumin 4.0 Globulin 3.9 Albumin/Globulin Ratio 1.0 Radiography Diagnostic Testing: Clinical Impression(s) from Imaging Studies Chest X-Ray 03/22/25 21:44 IMPRESSION: Mild pulmonary edema although multifocal pneumonia not entirely excluded. Moderate cardiomegaly. Reading Location: [facility] Discharge Plan Triage Chief Complaint: Weakness Other Complaint: Cellulitis ED Provider: Parminder Jama Dx/Rx/DC Orders Clinical Impression: Atrial fibrillation with rapid ventricular response, Cardiomyopathy, Type 2 diabetes mellitus, Cellulitis of left leg, CHF (congestive heart failure), Multifocal pneumonia Prescriptions: No Action simvastatin 40 mg tablet 40 mg PO QHS Qty: 90 3RF ferrous sulfate [FeroSul] 325 mg (65 mg iron) tablet 325 mg PO DAILY cholecalciferol (vitamin D3) 50 mcg (2,000 unit) capsule 50 mcg PO DAILY potassium chloride [K-Tab] 20 mEq tablet extended release 20 meq PO BID glimepiride 4 MG tablet 4 mg PO BIDCM omeprazole 20 MG capsule,delayed release(DR/EC) 20 mg PO DAILY felodipine 10 MG tablet extended release 24 hr 20 mg PO DAILY insulin glargine 100 unit/mL (3 mL) insulin pen 18 unit subcut QHS multivitamin Tablet 1 tab PO DAILY furosemide 40 mg tablet See Rx Instructions .ROUTE .COMPLEX Qty: 180 3RF Dose Instruction: TAKE 1 TABLET TWICE DAILY Rx Instructions: TAKE 1 TABLET TWICE DAILY Eliquis 5 mg tablet 5 mg PO BID Qty: 60 11RF carvedilol 12.5 mg tablet See Rx Instructions .ROUTE .COMPLEX Qty: 180 3RF Dose Instruction: TAKE 1 TABLET TWICE DAILY, MUST ADMINISTER WITH MEALS, FOOD Rx Instructions: TAKE 1 TABLET TWICE DAILY, MUST ADMINISTER WITH MEALS, FOOD hydralazine 25 mg tablet 25 mg PO TID Qty: 270 3RF isosorbide mononitrate 30 mg tablet extended release 24 hr 30 mg PO DAILY Qty: 90 3RF digoxin 125 mcg (0.125 mg) tablet 125 mcg PO DAILY Qty: 90 3RF Primary Care Provider: Emperatriz Sepulveda Referrals: Emperatriz Sepulveda MD [Primary Care Provider] - Print Language: Bulgarian Disposition Disposition: Acute Care Hospital [facility]
[2025-03-22 22:29] LABS: AST(SGOT) 61 U/L (<=31); Alanine Aminotransfer ALT/SGPT 23 U/L (<=34); Albumin, Serum 4.0 g/dL (3.4-4.8); Alkaline Phosphatase 108 U/L (35-104); Anion Gap 16 (5-15); BUN 31 mg/dL (4-19); BUN/Creat Ratio 25.0 RATIO (10-20); Calcium,Total 9.4 mg/dL (7.6-11.0); Carbon Dioxide 20.2 mmol/L (21.0-32.0); Chloride 101 mmol/L (98-108); Estimated Creatinine Clearance 52.99 ml/min (50-250); Globulin 3.9 g/dL (2.2-4.2); Glucose 120 mg/dL (70-99); Potassium 4.1 mmol/L (3.3-5.1)
--- OUTSIDE RECORDS SUMMARY | 2025-03-22 22:37 | XMS RPT_ITS | CCD ---
Author Organization [facility] CliniSyvt Care Team Providers Care Rental Coordinator Name Role Phone Rodrigo Sepulveda MD Primary Care Provider [facility], Keti Unavailable Dr. Rodrigo Sepulveda Primary Care Provider Dr. Rodrigo Sepulveda Referring Provider Dr. Martínez Dawson Attending Provider Rodrigo Sepulveda MD Primary Care Provider [facility], Keti Unavailable Rodrigo Sepulveda MD Primary Care Provider [facility], [place]eti Unavailable [facility], [place]eti Unavailable Rodrigo Sepulveda MD Primary Care Provider Mojica PACKING CHECKER.CRECHE ATTENDANT, Jillian Unavailable Ruby PACKING CHECKER.MANAGER HOTEL, Benita Unavailable Ruby PACKING CHECKER.MANAGER HOTEL, Benita Unavailable Mojica PACKING CHECKER.CRECHE ATTENDANT, Jillian Unavailable Rodrigo Sepulveda Primary Care Unavailable Milton Linton Attending Unavailable Rodrigo Sepulveda Referring Unavailable Evy Pascal NP Attending Unavailable Rodrigo Sepulveda Referring Unavailable Rodrigo Sepulveda Primary Care Unavailable Dr. Rodrigo Sepulveda MD Primary Care Provider Dr. Rodrigo Sepulveda MD Referring Provider Dr. Milton Linton MD Attending Provider TALAMPAS, RODRIGO D Attending Unavailable SELF Referring Unavailable TALAMPAS, RODRIGO D Primary Care Unavailable TALAMPAS, RODRIGO D Referring Unavailable TALAMPAS, RODRIGO D Primary Care Unavailable MOJICAJILLIAN Carson Attending Unavailable TALAMPAS, RODRIGO D Primary Care Unavailable TALAMPAS, RODRIGO D Referring Unavailable TALAMPAS, RODRIGO D Primary Care Unavailable Allergies Allergy Classification Reported Allergen(s) Allergy Type Date of Onset Reaction(s) Facility (20 sources) Lisinopril; 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: [LISINOPRIL] Drug Allergy 03-10-2014 [facility] (1 source) Lisinopril Drug Allergy 02-04-2025 [facility] Repository Medications Current Medications Medication Drug Class(es) Dates Sig (Normalized) Sig (Original) apixaban 5 mg oral tablet (20 sources) Factor Xa Inhibitor Start: 01-29-2021 End: 05-12-2024 take 1 tablet by mouth twice daily ELIQUIS 5 mg tab(s) Take 5 mg by mouth twice daily. 03/28/2021 Active Comment on above: Take 5 mg by mouth t wice daily. carvedilol 12.5 mg oral tablet (20 sources) alpha-Adrenergic Rosanne, beta-Adrenergic Rosanne Start: 01-29-2021 End: 07-27-2024 take 1 tablet by mouth twice daily at mealtime carvedilol (COREG) 12.5 mg tablet TAKE 1 TABLET BY MOUTH TWICE A DAY WITH A MEAL OR FOOD 02/27/2021 Active Start: 12-14-2019 End: 02-12-2022 take 1 tablet by mouth twice daily carvedilol (COREG) 3.125 mg tablet Take 1 tablet by mouth twice daily. 180 tablet 3 07/26/2020 02/12/2022 Discontinued Comment on above: Take 1 tablet by angeline th twice daily. TAKE 1 TABLET BY ANGELINE TH TWICE A DAY WITH A MEAL OR FOOD cholecalciferol 0.025 mg oral capsule (4 sources) Vitamin D Start: take 1 capsule by mouth once daily Cholecalciferol, Vitamin D3, (VITAMIN D) 25 mcg (1,000 unit) cap Indications: Vitamin D deficiency Take 1 capsule by mouth once daily. 02/17/2025 Active Start: 02-11-2024 take 1 capsule by mo [facility] once daily Cholecalciferol (Vitamin D3) 50 mcg (2,000 unit) capsule Active 50 ug PO DAILY February 11, 2024 12:00am Start: 12-25-2021 End: 06-25-2022 take 25 ug by mouth once daily Cholecalciferol (Vitami n D3) Active 25 MCG PO DAILY December 25, 2021 10:59am Cranberry Fruit (20 sources) Non-Standardized Food Allergenic Extract, Non-Standardized Plant Allergenic Extract Start: 01-25-2021 take 1 tablet by mouth three times daily Cranberry Fruit (Cranberry) 450 mg Tablet Active 900 MG PO THREE TIMES A DAY January 25, 2021 5:54pm Start: 01-25-2021 End: 02-11-2024 take 1 tablet by mouth three times daily Cranberry Fruit (Cranberry) 450 mg Tablet Discontinued 900 mg PO THREE TIMES A DAY January 25, 2021 12:00am February 11, 2024 1:31pm End: 08-03-2024 CRANBERRY 08/03/2024 Discont inued CRANBERRY Active CRANBERRY digoxin 0.125 mg oral tablet (20 sources) Cardiac Glycoside Start: 01-29-2021 End: 04-27-2024 take 1 tablet by mouth once daily digoxin (LANOXIN) 125 mcg (0.125 mg) tablet Take 125 mcg by mouth once daily. 03/28/2021 Active Comment on above: Take 125 mcg by mout h once daily. empagliflozin 10 mg oral tablet (1 source) Sodium-Glucose Cotransporter 2 Inhibitor Start: 02-17-2025 take 1 tablet by mouth once daily at breakfast empagliflozin (JARDIANCE) 10 mg tablet Indications: Controlled type 2 diabetes mellitus with microalbuminuria, with long-term current use of insulin (HCC) Take 1 tablet by mouth daily with breakfast. 30 tablet 5 02/17/2025 Active 24 hr felodipine 10 mg extended release oral tablet (20 sources) Dihydropyridine Calcium Channel Rosanne Start: 07-19-2023 End: 05-25-2024 take 2 tablets by mouth once daily felodipine ER (PLENDIL) 10 mg 24 hr tablet Indications: Essential hypertension Take 2 tablets by mouth once daily. 180 tablet 3 05/25/2024 Active Start: 06-04-2022 take 2 tablets by mo uth once daily felodipine ER (PLENDIL) 10 mg 24 hr tablet Indications: Essential hypertension Take 2 tablets by mouth once daily. 180 tablet 3 06/04/2022 Active Start: 12-14-2019 End: 06-02-2022 take 2 tablets by mouth once daily felodipine ER (PLENDIL) 10 mg 24 hr tablet Indications: Essential hypertension Take 2 tablets by mouth once daily. 180 tablet 3 07/10/2021 06/02/2022 Discontinued Start: 12-14-2019 take 10 mg by mouth once daily Felodipine 10 MG tablet extended release 24 hr Active 20 mg PO DAILY December 14, 2019 12:00am Comment on above: Take 2 tablets by mo ut once daily. ferrous sulfate 325 mg oral tablet (20 sources) Start: 07-09-2023 take 1 tablet by mouth once daily Ferrous Sulfate (Ferosul) 325 mg (65 mg iron) tablet Active 325 mg PO DAILY July 09, 2023 2:42pm Start: 05-28-2023 take 1 tablet by angeline th every other day ferrous sulfate 325 mg (65 mg iron) tablet Take 1 tablet by mouth every other day. 45 tablet 3 05/28/2023 Active Start: 06-04-2022 take 1 tablet by angeline th every other day ferrous sulfate 325 mg (65 mg iron) tablet Take 1 tablet by mouth every other day. 45 tablet 3 06/04/2022 Active Start: 07-10-2021 End: 06-02-2022 take 1 tablet by mouth every other day ferrous sulfate 325 mg (65 mg iron) tablet Take 1 tablet by mouth every other day. 0 07/10/2021 06/02/2022 Discontinued Start: 05-15-2021 End: 07-09-2023 take 1 tablet by mouth twice daily Ferrous Sulfate (Ferosul) 325 mg (65 mg iron) Tablet Active 325 MG PO TWICE A DAY 60 May 15, 2021 11:50am Comment on above: Take 1 tablet by angeline th every other day. furosemide 40 mg oral tablet (20 sources) Loop Diuretic Start: 05-15-2021 End: 06-03-2024 take 1 tablet by mouth twice daily furosemide (LASIX) 40 mg tablet Indications: Venous stasis dermatitis of right lower extremity , Lower extremity edema Take 1 tablet by mouth two times a day. 180 tablet 3 06/03/2024 Active Start: 01-29-2021 End: 05-15-2021 take 1 tablet by mouth once daily Furosemide (Lasix) 40 mg tablet Discontinued 40 mg PO DAILY February 27, 2021 10:58am May 15, 2021 11:49am Comment on above: Take 1 tablet by angeline th twice daily. in morning glimepiride 4 mg oral tablet (20 sources) Sulfonylurea Start: End: take 1 tablet by mouth twice daily at mealtime glimepiride (AMARYL) 4 mg tablet Indications: Controlled type 2 diabetes mellitus with microalbuminuria, with long-term current use of insulin ([facility]) Take 1 tablet by mouth two times a day with meals. 180 tablet 3 05/25/2024 Active Start: 06-04-2022 take 1 tablet by angeline th twice daily at mealtime glimepiride (AMARYL) 4 mg tablet Indications: Controlled type 2 diabetes mellitus with microalbuminuria, with long-term current use of insulin ([facility]) Take 1 tablet by mouth twice daily with meals. 180 tablet 3 06/04/2022 Active Start: 12-14-2019 End: 06-02-2022 take 1 tablet by mouth twice daily at mealtime glimepiride (AMARYL) 4 mg tablet Indications: Controlled type 2 diabetes mellitus with microalbuminuria, with long-term current use of insulin ([facility]) Take 1 tablet by mouth twice daily with meals. 180 tablet 3 07/10/2021 06/02/2022 Discontinued Comment on above: Take 1 tablet by angeline th twice daily with meals. Take 1 tablet by angeline th two times a day with meals. hydrALAZINE hydrochloride 25 mg oral tablet (20 sources) Arteriolar Vasodilator Start: 01-30-20 End: 11-12-19 25 take 1 tablet by mouth three times daily hydrALAZINE (APRESOLINE) 25 mg tablet Take 25 mg by mouth three times daily. 02/27/2021 Active Comment on above: Take 25 mg by mouth three times daily. 3 ml insulin glargine 100 unt/ml pen injector (20 sources) Insulin Analog Start: 03-08-20 End: 02-02-20 25 insulin glargine (LANTUS SOLOSTAR U-100 INSULIN) 100 unit/mL (3 mL) Indications: Controlled type 2 diabetes mellitus with microalbuminuria, with long-term current use of insulin ([facility]) Inject 22-32 Units subcutaneously daily at bedtime. 3 each 11 02/01/2025 Active Start: 03-07-2022 End: 03-07-2023 insulin glargine (LANTUS ALBERT OSTAR U-100 INSULIN) 100 unit/mL (3 mL) Indications: Controlled type 2 diabetes mellitus with microalbuminuria, with long-term current use of insulin (HCC) Inject 22 Units subcutaneously daily at bedtime. 5 Each 2 03/08/2023 Active Start: 03-07-2022 insulin glargi ne (LANTUS SOLOSTAR U-100 INSULIN) 100 unit/mL (3 mL) Indications: Controlled type 2 diabetes mellitus with microalbuminuria, with long-term current use of insulin (HCC) Inject 22 Units subcutaneously daily at bedtime. 5 Pen 2 03/07/2022 Active Start: 12-25-2021 Insulin Glargi ne 100 unit/mL (3 mL) insulin pen Active 18 U SC AT BEDTIME December 25, 2021 10:58am Start: 10-02-2021 End: 03-05-2022 insulin glargine (LANTUS ALBERT OSTAR U-100 INSULIN) 100 unit/mL (3 mL) Indications: Controlled type 2 diabetes mellitus with microalbuminuria, with long-term current use of insulin (HCC) Inject 22 Units subcutaneously daily at bedtime. 5 Pen 2 10/02/2021 03/05/2022 Discontinued Start: 12-14-2019 End: 12-25-2021 inject 22 [IU] by subcutaneous injection at bedtime Insulin Glargine Discontinued 22 UNIT SQ AT BEDTIME December 14, 2019 10:31am December 25, 2021 11:00am Comment on above: Inject 22 Units subc utaneously daily at bedtime. 24 hr isosorbide mononitrate 30 mg extended release oral tablet (20 sources) Nitrate Vasodilator Start: 01-30-20 End: 04-27-20 take 1 tablet by mouth once daily, then take 1 tablet by mouth every twenty-four hours isosorbide mononitrate ER (IMDUR) 30 mg 24 hr tablet Take 30 mg by mouth once daily. 03/28/2021 Active Comment on above: Take 30 mg by mouth once daily. levothyroxine sodium 0.025 mg oral tablet (1 source) l-Thyroxine Start: 02-18-20 take 1 tablet by mouth once daily levothyroxine (SYNTHROID) 25 mcg tablet Indications: Acquired hypothyroidism Take 1 tablet by mouth once daily. 90 tablet 3 02/17/2025 Active Miscellaneous Medical Supply (20 sources) Start: 07-26-20 Miscellaneous Medical Supply Indications: Stasis edema of both lower extremities Jobst stockings 30 mm Hg Knee high (dispense 4 pairs). (I87.303) Stasis edema of both lower extremities 4 Each 07/26/2020 Active Start: 07-26-2020 Miscellaneous Medical Supply Indications: Stasis edema of both lower extremities Jobst stockings 30 mm Hg Knee high (dispense 4 pairs). (I87.303) Stasis edema of both lower extremities 4 Each 0 07/26/2020 Active Comment on above: Jobst stockings 30 m m Hg Knee high (dispense 4 pairs). (I87.303) Stasis edema of both lower extremities Multivitamin preparation (1 source) Start: take 1 tablet by mouth once daily Multivitamin Active 1 TABLET PO DAILY January 25, 2021 5:54pm Multivitamin Tablet (1 source) Start: Multivitamin Tablet Active 1 {tbl} PO DAILY January 25, 2021 12:00am Multivitamins chew (20 sources) Start: Multivitamins chew Take 2 tablets daily. 0 03/25/2015 Active Comment on above: Take 2 tablets daily . nitrofurantoin, macrocrystals 25 mg / nitrofurantoin, monohydrate 75 mg oral capsule (1 source) Nitrofuran Antibacterial Start: End: take 1 capsule by mouth twice daily at mealtime nitrofurantoin monohydrate and macrocrystal (MACROBID) 100 mg capsule Take 1 capsule by mouth two times a day with meals for 7 days. 14 capsule 08/03/2024 08/10/2024 Active omeprazole 20 mg delayed release oral capsule (20 sources) Proton Pump Inhibitor Start: End: take 1 capsule by mouth once daily before breakfast omeprazole (PRILOSEC) 20 mg capsule Indications: Gastroesophageal reflux disease without esophagitis Take 1 capsule by mouth daily before breakfast. 1/2 hr before meal. 90 capsule 3 05/25/2024 Active Start: 06-04-2022 take 1 capsule by mo [facility] once daily before breakfast omeprazole (PRILOSEC) 20 mg capsule Indications: Gastroesophageal reflux disease without esophagitis Take 1 capsule by mouth daily before breakfast. 1/2 hr before meal. 90 capsule 3 06/04/2022 Active Start: 12-14-2019 End: 06-02-2022 take 1 capsule by mouth once daily before breakfast omeprazole (PRILOSEC) 20 mg capsule Indications: Gastroesophageal reflux disease without esophagitis Take 1 capsule by mouth daily before breakfast. 1/2 hr before meal. 90 capsule 3 07/10/2021 06/02/2022 Discontinued Comment on above: Take 1 capsule by mo [facility] daily before breakfast. 1/2 hr before meal. potassium chloride 20 meq extended release oral tablet (20 sources) Start: 02-04-2025 take 1 tablet by mouth twice daily Potassium Chloride (K-Tab) 20 mEq tablet extended release Active 20 meq PO TWICE A DAY February 04, 2025 2:15pm Start: 05-19-2021 End: 12-18-2024 take 1 tablet by mouth twice daily potassium chloride ER (KLOR-CON) 20 mEq tablet Take 1 tablet by mouth two times a day. 180 tablet 2 12/18/2024 Active Start: 05-15-2021 End: 02-04-2025 take 2 tablets by mouth once daily Potassium Chloride (K-Tab) 20 mEq tablet extended release Discontinued 40 meq PO DAILY 180 January 30, 2022 7:56am February 04, 2025 2:16pm Start: 05-04-2021 End: 05-15-2021 take 20 mEq by mouth once daily Potassium Chloride Dis continued 20 MEQ PO DAILY May 04, 2021 3:28pm May 15, 2021 11:50am Comment on above: 1 tablet twice daily . [facility]. simvastatin 40 mg oral tablet (20 sources) HMG-CoA Reductase Inhibitor Start: 08-14-20 End: 01-30-20 take 1 tablet by mouth once daily simvastatin (ZOCOR) 40 mg tablet Indications: Pure hypercholesterolemia Take 1 tablet by mouth once daily. 90 tablet 3 01/29/2025 Active Start: 12-14-2019 End: 02-27-2021 take 1 tablet by mouth once daily simvastatin (ZOCOR) 40 mg tablet Indications: Pure hypercholesterolemia Take 1 tablet by mouth once daily. 90 tablet 3 07/10/2021 Active Comment on above: Take 1 tablet by angeline th once daily. Completed/Discontinued Medications Medication Drug Class(es) Dates Sig (Normalized) Sig (Original) amiodarone hydrochloride 200 mg oral tablet (20 sources) Antiarrhythmic Start: 02-27-2021 End: 02-12-2022 take 1 tablet by mouth once daily Amiodarone 200 mg tablet Discontinued 200 mg PO DAILY 90 January 02, 2022 10:06am February 06, 2022 8:42am Start: 01-29-2021 End: 02-27-2021 take 1 tablet by mouth twice daily Amiodarone 200 mg tablet Discontinued 200 mg PO TWICE A DAY 60 February 27, 2021 10:57am February 27, 2021 3:38pm Comment on above: Take 200 mg by mouth once daily. Blood-Glucose Meter (ACCU-CHEK KENNETH PLUS METER) (20 sources) Start: 01-07-2023 End: 08-03-2024 Blood-Glucose Meter (ACCU-CHEK KENNETH PLUS METER) 1 Each twice daily. And a s needed for symptoms of sugars too high or too low. DX: E11.65 200 Each 3 01/07/2023 08/03/2024 Discontinued Start: 01-07-2023 Blood-Glucose Meter (ACCU-CHEK KENNETH PLUS METER) 1 Each twice daily. And a s needed for symptoms of sugars too high or too low. DX: E11.65 200 Each 3 01/07/2023 Active Start: 03-02-2020 End: 02-12-2022 Blood-Glucose Meter (ACCU-CH EK KENNETH PLUS METER) 1 Each twice daily. And a s needed for symptoms of sugars too high or too low. DX: E11.65 200 Each 3 03/02/2020 02/12/2022 Discontinued Start: 03-02-2020 Blood-Glucose Meter (ACCU-CHEK KENNETH PLUS METER) 1 Each twice daily. And a s needed for symptoms of sugars too high or too low. DX: E11.65 200 Each 3 03/02/2020 Active Comment on above: 1 Each twice daily. And a s needed for symptoms of sugars too high or too low. DX: E11.65 lactobacillus acidophilus 460 mg oral capsule (4 sources) Start: 1 End: 2 take 1 capsule by mouth once daily FLORAJEN ACIDOPHILUS 20 billion cell cap TAKE 1 CAPSULE BY MOUTH EVERY DAY 30 capsule 0 04/26/2021 02/12/2022 Discontinued (Other) Comment on above: TAKE 1 CAPSULE BY MO UTH EVERY DAY Problems Active Problems Problem Classification Problem Date Documented Date Episodic/Chronic Cardiac dysrhythmias (20 sources) Atrial fibrillation; 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: [Unspecified atrial fibrillation] Onset: 03-18-2023 Chronic Congestive heart failure; nonhypertensive (3 sources) Congestive heart failure; 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: [Heart failure, unspecified] Chronic Coronary atherosclerosis and other heart disease (5 sources) Coronary atherosclerosis; 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: [Atherosclerotic heart disease of [place] coronary artery without angina pectoris] Chronic Comment on above: Mild per cardiac cat h 01/27/21 Diabetes mellitus with complications (20 sources) Type II diabetes mellitus uncontrolled; 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: [Uncontrolled type 2 diabetes mellitus with insulin therapy] Onset: 05-01-2005 Resolved: 09-03-2021 Chronic Diabetes mellitus without complication (8 sources) Type 2 diabetes mellitus without complication; 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: [Type 2 diabetes mellitus without complications] Onset: 05-01-2005 09-03-2021 Chronic Disorders of lipid metabolism (20 sources) Pure hypercholesterolemia; 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: [Pure hypercholesterolemia, unspecified] Onset: 05-01-2005 05-01-2005 Chronic Esophageal disorders (20 sources) Gastroesophageal reflux disease; 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: [Gastro-esophageal reflux disease without esophagitis] Onset: 05-08-2006 05-08-2006 Chronic Essential hypertension (20 sources) Essential hypertension; 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: [Essential (primary) hypertension] Onset: 05-01-2005 09-14-2015 Chronic Fluid and electrolyte disorders (2 sources) Hypokalemia; 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: [Hypokalemia] 05-04-2021 Episodic Genitourinary symptoms and ill-defined conditions (4 sources) Albuminuria ; 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: [Proteinuria, unspecified] Onset: 02-08-2022 12-27-2023 Episodic Nutritional deficiencies (5 sources) Vitamin D deficiency; 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: [Vitamin D deficiency, unspecified] Onset: 02-17-2025 12-27-2023 Chronic Other aftercare (3 sources) Patient encounter status; 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: [Other termite inspector (current) drug therapy] 12-27-2023 Episodic Other aftercare (1 source) Long-term current use of drug therapy; 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: [Other correction (current) drug therapy] 01-13-2025 Episodic Other aftercare (3 sources) retirement (current) use of insulin; 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: [Controlled type 2 diabetes mellitus with microalbuminuria, with long-term current use of insulin (HCC)] Onset: 02-08-2022 Episodic Other aftercare (1 source) Other correction (current) drug therapy; 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: [Encounter for long-term current use of medication] Onset: 02-02-2025 Episodic Other diseases of veins and lymphatics (1 source) Bilateral lower limb edema; 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: [Chronic venous hypertension (idiopathic) without complications of bilateral lower extremity] Chronic Other diseases of veins and lymphatics (2 sources) Disorder of vein of lower extremity; 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: [Venous insufficiency (chronic) (peripheral)] 05-25-2024 Episodic Other lower respiratory disease (2 sources) Hypoxia; 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: [Hypoxemia] 05-23-2021 Episodic Other nutritional; endocrine; and metabolic disorders (3 sources) Body mass index 40+ - severely obese; 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: [Morbid (severe) obesity due to excess calories] Onset: 05-08-2006 01-14-2018 Chronic Other nutritional; endocrine; and metabolic disorders (20 sources) Severe obesity; 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: [Morbid (severe) obesity due to excess calories] Onset: 05-08-2006 Resolved: 03-18-2023 02-08-2022 Chronic Other nutritional; endocrine; and metabolic disorders (1 source) Hypomagnesemia; 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: [Hypomagnesemia] 02-17-2025 Chronic Other nutritional; endocrine; and metabolic disorders (1 source) Hypomagnesemia; 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: [Hypomagnesemia] Onset: 02-17-2025 Chronic Other nutritional; endocrine; and metabolic disorders (1 source) Morbid (severe) obesity due to excess calories; 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: [Severe obesity (BMI 35.0-39.9) with comorbidity (HCC)] Onset: 02-17-2025 Chronic Other screening for suspected conditions (not mental disorders or infectious disease) (12 sources) Raised TSH level; 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: [Other specified abnormal findings of blood chemistry] Onset: 08-03-2024 Episodic Frances-; endo-; and myocarditis; cardiomyopathy (except that caused by tuberculosis or sexually transmitted disease) (3 sources) Cardiomyopathy; 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: [Cardiomyopathy, unspecified] Chronic Pneumonia (except that caused by tuberculosis or sexually transmitted disease) (2 sources) Pneumonia; 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: [Pneumonia, unspecified organism] 05-23-2021 Episodic Pulmonary heart disease (5 sources) Pulmonary hypertension; 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: [Other secondary pulmonary hypertension] Onset: 02-17-2025 01-27-2021 Chronic Residual codes; unclassified (2 sources) Obstructive sleep apnea syndrome; 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: [Obstructive sleep apnea (adult) (pediatric)] 01-27-2021 Chronic Residual codes; unclassified (1 source) Menopause present; 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: [Asymptomatic menopausal state] 01-29-2024 Episodic Residual codes; unclassified (2 sources) Edema of lower extremity; 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: [Localized edema] 05-25-2024 Episodic Skin and subcutaneous tissue infections (2 sources) Cellulitis; 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: [Cellulitis, unspecified] 12-15-2019 Episodic Thyroid disorders (2 sources) Acquired hypothyroidism; 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: [Hypothyroidism, unspecified] Onset: 02-17-2025 02-17-2025 Chronic Unclassified (1 source) Longstanding persistent atrial fibrillation; 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: [Longstanding persistent atrial fibrillation (HCC)] Onset: 03-18-2023 Past or Other Problems Problem Classification Problem Date Documented Date Episodic/Chronic Immunizations and screening for infectious disease (1 source) Encounter for immunization; 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: [Encounter for immunization] Onset: 08-03-2024 Episodic Other aftercare (13 sources) Long-term current use of anticoagulant; 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: [termite inspector (current) use of anticoagulants] Onset: 08-03-2024 08-03-2024 Episodic Other aftercare (1 source) retirement (current) use of anticoagulants; 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: [Chronic anticoagulation] Onset: 08-03-2024 Episodic Other bone disease and musculoskeletal deformities (20 sources) Osteopenia; 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: [Other specified disorders of bone density and structure, unspecified site] Onset: 03-03-2012 03-03-2012 Episodic Residual codes; unclassified (2 sources) History of cardiac catheterization; 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: [Other specified postprocedural states] Onset: 12-31-2020 01-27-2021 Episodic Comment on above: LEFT MAIN: Angiograp hically normal; LEFT ANTERIOR DESCENDING ARTERY: PROX LAD: Mild luminal irregularities; CIRCUMFLEX ARTERY: Angiographically normal; RIGHT CORONARY ARTERY: Mild luminal irregularities; VALVE FINDINGS: Mitral Valve Insufficiency - Grade 1; AORTIC ROOT: Angiographically normal per cardiac cath 01/27/21 Unclassified (1 source) Patient encounter status 12-08-2024 Urinary tract infections (2 sources) Acute cystitis; 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: [Acute cystitis with hematuria] Onset: 08-03-2024 08-03-2024 Episodic Results Test Name Value Interpretation Reference Range Facility [facility] 02-17-2025 CNOV Office Visit ([facility] ) ----- ALEJANDROBARBARA Irizarry ([id number]) 1955 F Date Time Provider Department 02/17/25 10:20 AM RODRIGO SEPULVEDA [facility] During your visit today, we recorded the following information about you: Temperature Pulse Respiration Blood pressure 97.9 degrees 85/minute 14/minute 128/64 Weight Height 110.7 kg 1.664 m Danny Trejo LPN 03/12/2025 1:30 AM Signed Last seen eye doctor x 1 year ago at [facility]- Last seen [facility] on 02/04/25 Rodrigo Sepulveda MD 03/12/2025 1:30 AM Signed This note was created using NoteWriter. Subjective Barbara Allen is a 69 year old female. SUBJECTIVE: Barbara Allen is a 69-year-old female with a history of diabetes mellitus, hypothyroidism, and heart disease, presenting for a 6-month follow-up. Barbara reports no new concerns or issues since her last visit. She is currently on multiple medications, including carvedilol, hydralazine, digoxin, Eliquis, Imdur, glimepiride, Plendil, omeprazole, Lasix, potassium, simvastatin, insulin, and vitamin D. 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 She reports that her blood glucose levels have been stable, with no episodes of hypoglycemia or hyperglycemia. Recent lab results show a slight decrease in hematocrit, but hemoglobin and RBC counts are within normal limits. Barbara inquires about the need for iron supplementation, as she is not currently taking any. Liver function tests reveal a mild elevation in alkaline phosphatase, but other liver enzymes are normal. Blood glucose is 110 mg/dL, and A1c has improved from 8.9% to 8.2%. Thyroid function tests indicate a slightly underactive thyroid, with TSH levels fluctuating over the past year. Barbara denies symptoms of hypothyroidism, such as constipation, fatigue, or bradycardia. Magnesium levels are slightly below normal, and Barbara is not taking magnesium supplements. She reports consistent swelling, which improves overnight and is less pronounced in the morning. PAST MEDICAL HISTORY Diagnosis Date Abnormal Papanicolaou smear of vagina and vaginal HPV Allergic rhinitis, cause unspecified Arm fracture 07/2010 right Cervicitis and endocervicitis Esophageal reflux Morbid obesity (HCC) Pure hypercholesterolemia Type II or unspecified type diabetes mellitus without mention of complication, not stated as uncontrolled 05/01/2005 Unspecified essential hypertension 05/01/2005 Current Outpatient Medications Medication Sig Cholecalciferol, Vitamin D3, (VITAMIN D) 25 mcg (1,000 unit) cap Take 1 capsule by mouth once daily. levothyroxine (SYNTHROID) 25 mcg tablet Take 1 tablet by mouth once daily. empagliflozin (JARDIANCE) 10 mg tablet Take 1 tablet by mouth daily with breakfast. insulin glargine (LANTUS SOLOSTAR U-100 INSULIN) 100 unit/mL (3 mL) Inject 22-32 Units subcutaneously daily at bedtime. simvastatin (ZOCOR) 40 mg tablet Take 1 tablet by mouth once daily. potassium chloride ER (KLOR-CON) 20 mEq tablet Take 1 tablet by mouth two times a day. furosemide (LASIX) 40 mg tablet Take 1 tablet by mouth two times a day. felodipine ER (PLENDIL) 10 mg 24 hr tablet Take 2 tablets by mouth once daily. glimepiride (AMARYL) 4 mg tablet Take 1 tablet by mouth two times a day with meals. omeprazole (PRILOSEC) 20 mg capsule Take 1 capsule by mouth daily before breakfast. 1/2 hr before meal. insulin needles, DISPOSABLE, (BD INSULIN PEN NEEDLE UF) 31 gauge x 5/16" Use 1 new pen needle with each injection of insulin. 1 daily. Diagnosis: (E11.65, Z79.4) ferrous sulfate 325 mg (65 mg iron) tablet Take 1 tablet by mouth every other day. (Patient not taking: Reported on 02/17/2025) blood sugar diagnostic (EntitleTOUCH ULTRA TEST) test strip Use as instructed FOR TESTING twice daily. Dx: E11.65, Z79.4, Insulin: YES ELIQUIS 5 mg tab(s) Take 5 mg by mouth twice daily. digoxin (LANOXIN) 125 mcg (0.125 mg) tablet Take 125 mcg by mouth once daily. hydrALAZINE (APRESOLINE) 25 mg tablet Take 25 mg by mouth three times daily. isosorbide mononitrate ER (IMDUR) 30 mg 24 hr tablet Take 30 mg by mouth once daily. carvedilol (COREG) 12.5 mg tablet TAKE 1 TABLET BY MOUTH TWICE A DAY WITH A MEAL OR FOOD [employer] Jobst stockings 30 mm Hg Knee high (dispense 4 pairs). (I87.303) Stasis edema of both lower extremities Multivitamins chew Take 2 tablets daily. No current facility-administered medications for this visit. Review of Systems Objective BP 128/64 (BP Site: Left Arm, BP Position: Sitting, BP Cuff Size: Large Adult) Pulse 85 Temp 36.6 ?C (97.9 ?F) (Temporal) Resp 14 Ht 166.4 cm (5' 5.5") Wt 110.7 kg (244 lb 0.8 oz) SpO2 97% BMI 39.99 kg/m? Physical Exam Latest Ref Rng 01/24/2024 07/22/2024 02/02/2025 WBC 3.70 - 11.00 k/uL 7.86 7.45 7.65 RBC 3.90 - (more content not included)... Normal [facility] Cardiology Visit Reporton Cardiology Visit Report [facility] [address] [place], [place] [address] OFFICE VISIT Date of Service: 02/04/25 MR#: [id number] Acct: [id number] Name: BARBARA ALLEN Rep #: [id number] : 1955 Provider: Dr. Milton parkinson MD Age/Sex: 69/F Location: [facility] [place] Status: Signed HPI HPI History of Present Illness Details: Patient is a pleasant 69-year-old white female that comes today for monitoring of her cardiovascular status. She has a history of persistent atrial fibrillation resolved LV dysfunction hyperlipidemia hypertension diabetes and pulmonary hypertension which is secondary. The patient reports she has been doing very well in her home environment she gets around a little slower than she used to she is overweight but she lives in her own home and takes care of herself and does her actives of daily living. Patient denies any syncope or near syncope her LV function is known to be recovered to an EF of 55% on an echocardiogram April 2021. When she had originally presented she had a catheterization with no significant coronary artery disease December 2020 but an EF of 25%. After guideline directed medical therapy her EF returned essentially normal. Patient also has a history of hyperlipidemia last lipids that I have recorded total cholesterol 163 HDL 60 LDL 87 and triglycerides 79. These are managed through the [facility] and are checked routinely by the patient's report. She also has a history of hypertension which is well-controlled in the office today. She has a history of diabetes mellitus she does not remember her last hemoglobin A1c but it is managed through the [facility]. The patient reports that her lower extremity lymphedema seems to be a little better when she can take her diuretic therapy twice a day she does not do this when she is up and about and out in the community. She does wear compression hose. 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: No Accompanied by: Self Is patient in pain?: No Allergies lisinopril Allergy (Verified 02/04/25 14:13) Laryngospasms Medications ???Medication ???Instructions ???Recorded ???Confirmed ???Type felodipine 10 mg tablet,extended 20 mg PO DAILY High BP 12/14/19 History release 24 hr glimepiride 4 mg tablet 4 mg PO BIDCM Diabetes 12/14/19 History omeprazole 20 mg capsule,delayed 20 mg PO DAILY GERD 12/14/1902/04 History release multivitamin 1 tab PO DAILY SUPPLEMENT 01/25/21 02/04/25 History simvastatin 40 mg tablet 40 mg PO QHS #90 tabs 02/27/2101/24 Rx insulin glargine 100 unit/mL (3 18 unit subcut QHS DM 12/25/2101/24 History mL) subcutaneous pen ferrous sulfate 325 mg (65 mg 325 mg PO DAILY 07/09/23 02/04/25 History iron) tablet (FeroSul) furosemide 40 mg tablet See Rx Instructions .Route 3 02/04/25 Rx .COMPLEX #180 tabs cholecalciferol (vitamin D3) 50 50 mcg PO DAILY 02/11/24 02/04/25 History mcg (2,000 unit) capsule digoxin 125 mcg (0.125 mg) tablet 125 mcg PO DAILY #90 tabs 4 02/04/25 Rx isosorbide mononitrate 30 mg 30 mg PO DAILY #90 tabs 04/27/24 0 02/04/25 Rx tablet,extended release 24 hr apixaban 5 mg tablet (Eliquis) 5 mg PO BID #60 tabs 05/12/2401/24 Rx carvedilol 12.5 mg tablet See Rx Instructions .Route 4 02/04/25 Rx .COMPLEX #180 tabs hydralazine 25 mg tablet 25 mg PO TID #270 tabs 11/11/24 Rx potassium chloride 20 mEq 20 meq PO BID 02/04/25 History tablet,extended release (K-Tab) Ejection fraction %: 55 Have you fallen in the past year?: No [facility] Medical History Type 2 diabetes mellitus Mixed hyperlipidemia Atherosclerotic heart disease of [place] coronary artery without angina pectoris Essential hypertension Pulmonary hypertension assoc with unclear multi-factorial mechanisms MORGAN (obstructive sleep apnea) CAD (coronary artery disease) Cardiomyopathy History of left heart catheterization (LHC) ( 01/27/21) Sleep apnea GERD (gastroesophageal reflux disease) Diabetes Surgical History History of tonsillectomy Family History Mother No history of heart disease Father No history of heart disease Social History ... Normal [facility] 25([facility] 25-hydroxyvitamin D3 [Mass/Vol] 38.2 ng/mL Normal 31.0-80.0 [facility] Comment on above: Order Comment: Heber bruce Type: BLOOD SPECIMENOrdering Facility: [facility] Address: [address] [place] [address] Performed By: #### 1 989-3 ####[facility] LABCLIA [id number] [place] [address] [place] ALBUMIN/CREATININE RATIO, UR INEon 02-02-2025 Albumin DL <= 20 mg/L (U) [Mass/Vol] 940.2 mg/L Normal [facility] Comment on above: Order Comment: Heber bruce Type: URINE SPECIMENOrdering Facility: [facility] Address: [address] [place] [address] Performed By: #### U ACR ####[facility] LABIA [id number] [place] [address] [place] Albumin/Creatinine (U) [Mass ratio] 2362 mg/g High <30 [facility] Comment on above: Order Comment: Heber bruce Type: URINE SPECIMENOrdering Facility: [facility] Address: [address] [place] [address] Result Comment: Not calculated Adult Male and Female Nephrotic Criteria: <30 mg/g is considered normal to mildly increased 30-300 mg/g is considered moderately increased >300 mg/g is considered severely increased KDIGO. (2013). KDIGO 2012 Clinical Practice Guideline for the Evaluation and Management of Chronic Kidney Disease. Official Journal of the International Society of Nephrology, 3(1), 1150. Performed By: #### U ACR ####[facility] LABCLIA [id number] [address] [place] Creatinine (U) [Mass/Vol] 39.8 mg/dL Normal 20.0-300.0 [facility] Comment on above: Order Comment: Speci men Type: URINE SPECIMENOrdering Facility: [facility] Address: [address] [place] [address] Performed By: #### U ACR ####[facility] LABCLIA [id number] [place] [address] [place] CBC W Auto Differential pane l (Bld)on 02-02-2025 Basophils (Bld) [#/Vol] 0.04 10*3/uL Normal <0.11 [facility] Comment on above: Order Comment: Speci men Type: BLOOD SPECIMENOrdering Facility: [facility] Address: [address] [place] [address] Performed By: #### 5 7021-8 ####[facility] MILLWNCLIA [id number] [place] [address] [place] Basophils/100 WBC (Bld) 0.5 % Normal [facility] Comment on above: Order Comment: Speci men Type: BLOOD SPECIMENOrdering Facility: [facility] Address: [address] [place] [address] Performed By: #### 5 7021-8 ####[facility] MILLTOWNCLIA [id number] [place] [address] [place] Differential cell count method Nom (Bld) Auto Normal [facility] Comment on above: Order Comment: Speci men Type: BLOOD SPECIMENOrdering Facility: [facility] Address: [address] [place] [address] Performed By: #### 5 7021-8 ####[facility] MILLWNCLIA [id number] [place] [address] [place] Eosinophils (Bld) [#/Vol] 0.17 10*3/uL Normal <0.46 [facility] Comment on above: Order Comment: Speci men Type: BLOOD SPECIMENOrdering Facility: [facility] Address: [address] [place] [address] Performed By: #### 5 7021-8 ####[facility] [id number] [place] [address] [place] Eosinophils/100 WBC (Bld) 2.2 % Normal [facility] Comment on above: Order Comment: Speci men Type: BLOOD SPECIMENOrdering Facility: [facility] Address: [address] [place] [address] Performed By: #### 5 7021-8 ####[facility] ERELIZABETH [id number] [place] [address] [place] Erythrocyte distribution width (RBC) [Ratio] 14.4 % Normal 11.5-15.0 [facility] Comment on above: Order Comment: Speci men Type: BLOOD SPECIMENOrdering Facility: [facility] Address: [address] [place] [address] Performed By: #### 5 7021-8 ####[facility] ERELIZABETH [id number] [place] [address] [place] Hematocrit (Bld) [Volume fraction] 34.9 % Low 36.0-46.0 [facility] Comment on above: Order Comment: Speci men Type: BLOOD SPECIMENOrdering Facility: [facility] Address: [address] [place] [address] Performed By: #### 5 7021-8 ####[facility] ERNCLI [id number] [place] [address] [place] Hemoglobin (Bld) [Mass/Vol] 11.5 g/dL Normal 11.5-15.5 [facility] Comment on above: Order Comment: Speci men Type: BLOOD SPECIMENOrdering Facility: [facility] Address: [address] [place] [address] Performed By: #### 5 7021-8 ####[facility] [id number] [place] [address] [place] Immature granulocytes (Bld) [#/Vol] 0.03 10*3/uL Normal <0.10 [facility] Comment on above: Order Comment: Speci men Type: BLOOD SPECIMENOrdering Facility: [facility] Address: [address] [place] [address] Performed By: #### 5 7021-8 ####[facility] [id number] [place] [address] [place] Immature granulocytes/100 WBC (Bld) 0.4 % Normal [facility] Comment on above: Order Comment: Speci men Type: BLOOD SPECIMENOrdering Facility: [facility] Address: [address] [place] [address] Performed By: #### 5 7021-8 ####[facility] [id number] [place] [address] [place] Lymphocytes (Bld) [#/Vol] 1.13 10*3/uL Normal 1.00-4.00 [facility] Comment on above: Order Comment: Speci men Type: BLOOD SPECIMENOrdering Facility: [facility] Address: [address] [place] [address] Performed By: #### 5 7021-8 ####[facility] [id number] [place] [address] [place] Lymphocytes/100 WBC (Bld) 14.8 % Normal [facility] Comment on above: Order Comment: Speci men Type: BLOOD SPECIMENOrdering Facility: [facility] Address: [address] [place] [address] Performed By: #### 5 7021-8 ####[facility] MILLWNCLIA [id number] STATES [facility] MCH (RBC) [Entitic mass] 28.6 pg Normal 26.0-34.0 [facility] Comment on above: Order Comment: Speci men Type: BLOOD SPECIMENOrdering Facility: [facility] Address: [address] [place] [address] Performed By: #### 5 7021-8 ####[facility] ERNCLIA [id number] [address] [place] MCHC (RBC) [Mass/Vol] 33.0 g/dL Normal 30.5-36.0 [facility] Comment on above: Order Comment: Speci men Type: BLOOD SPECIMENOrdering Facility: [facility] Address: [address] [place] [address] Performed By: #### 5 7021-8 ####[facility] ERNCLIA [id number] [place] [address] [place] MCV (RBC) [Entitic vol] 86.8 fL Normal 80.0-100.0 [facility] Comment on above: Order Comment: Speci men Type: BLOOD SPECIMENOrdering Facility: [facility] Address: [address] [place] [address] Performed By: #### 5 7021-8 ####[facility] [id number] [place] [address] [place] Monocytes (Bld) [#/Vol] 0.55 10*3/uL Normal <0.87 [facility] Comment on above: Order Comment: Speci men Type: BLOOD SPECIMENOrdering Facility: [facility] Address: [address] [place] [address] Performed By: #### 5 7021-8 ####[facility] [id number] [place] [address] [place] Monocytes/100 WBC (Bld) 7.2 % Normal [facility] Comment on above: Order Comment: Speci men Type: BLOOD SPECIMENOrdering Facility: [facility] Address: [address] [place] [address] Performed By: #### 5 7021-8 ####[facility] [id number] [place] [address] [place] Neutrophils (Bld) [#/Vol] 5.73 10*3/uL Normal 1.45-7.50 [facility] Comment on above: Order Comment: Speci men Type: BLOOD SPECIMENOrdering Facility: [facility] Address: [address] [place] [address] Performed By: #### 5 7021-8 ####[facility] [id number] [place] [address] [place] Neutrophils/100 WBC (Bld) 74.9 % Normal [facility] Comment on above: Order Comment: Speci men Type: BLOOD SPECIMENOrdering Facility: [facility] Address: [address] [place] [address] Performed By: #### 5 7021-8 ####[facility] [id number] [place] [address] [place] Nucleated RBC (Bld) [#/Vol] 10*3/uL Normal <0.01 [facility] Comment on above: Order Comment: Speci men Type: BLOOD SPECIMENOrdering Facility: [facility] Address: [address] [place] [address] Performed By: #### 5 7021-8 ####[facility] [id number] [place] [address] [place] Nucleated RBC/100 WBC (Bld) [Ratio] 0.0 /100 WBC Normal [facility] Comment on above: Order Comment: Speci men Type: BLOOD SPECIMENOrdering Facility: [facility] Address: [address] [place] [address] Performed By: #### 5 7021-8 ####[facility] MARBELLA TAMMINCJAVI [id number] [place] [address] [place] Platelet mean volume (Bld) [Entitic vol] 10.5 fL Normal 9.0-12.7 [facility] Comment on above: Order Comment: Speci men Type: BLOOD SPECIMENOrdering Facility: [facility] Address: [address] [place] [address] Performed By: #### 5 7021-8 ####[facility] ERNCPRATIMAA [id number] [place] [address] [place] Platelets (Bld) [#/Vol] 219 10*3/uL Normal 150-400 [facility] Comment on above: Order Comment: Speci men Type: BLOOD SPECIMENOrdering Facility: [facility] Address: [address] [place] [address] Performed By: #### 5 7021-8 ####[facility] ERNCLIA [id number] [place] [address] [place] RBC (Bld) [#/Vol] 4.02 10*6/uL Normal 3.90-5.20 [facility] Comment on above: Order Comment: Speci men Type: BLOOD SPECIMENOrdering Facility: [facility] Address: [address] [place] [address] Performed By: #### 5 7021-8 ####[facility] ERNCLIA [id number] [place] [address] [place] WBC (Bld) [#/Vol] 7.65 10*3/uL Normal 3.70-11.00 [facility] Comment on above: Order Comment: Speci men Type: BLOOD SPECIMENOrdering Facility: [facility] Address: [address] [place] [address] Performed By: #### 5 7021-8 ####[facility] JAROD [id number] [place] [address] [place] Comprehensive metabolic 2000 panelon 02-02-2025 Albumin [Mass/Vol] 4.0 g/dL Normal 3.9-4.9 [facility] Comment on above: Order Comment: Speci men Type: BLOOD SPECIMENOrdering Facility: [facility] Address: [address] [place] [address] Performed By: #### 1 9123-9, 22349-3 ####[facility] BRUCEWARM SPRINGSRAOULPRATIMANunu [id number] [place] [address] [place] ALP [Catalytic activity/Vol] 135 U/L High 34-123 [facility] Comment on above: Order Comment: Speci men Type: BLOOD SPECIMENOrdering Facility: [facility] Address: [address] [place] [address] Performed By: #### 1 9123-9, 86327-4 ####[facility] BRUCEWARM SPRINGSNACHONunu [id number] [place] [address] [place] ALT [Catalytic activity/Vol] 10 U/L Normal 7-38 [facility] Comment on above: Order Comment: Speci men Type: BLOOD SPECIMENOrdering Facility: [facility] Address: [address] [place] [address] Performed By: #### 1 9123-9, 01092-9 ####[facility] ERRAOULLIA [id number] [place] [address] [place] Anion gap [Moles/Vol] 13 mmol/L Normal 8-15 [facility] Comment on above: Order Comment: Speci men Type: BLOOD SPECIMENOrdering Facility: [facility] Address: [address] [place] [address] Performed By: #### 1 9123-9, 47758-6 ####[facility] MILLTOWNCLIA [id number] [place] [address] [place] AST [Catalytic activity/Vol] 11 U/L Low 13-35 [facility] Comment on above: Order Comment: Speci men Type: BLOOD SPECIMENOrdering Facility: [facility] Address: [address] [place] [address] Performed By: #### 1 9123-9, 94200-2 ####[facility] [id number] [place] [address] [place] Bilirubin [Mass/Vol] 0.5 mg/dL Normal 0.2-1.3 [facility] Comment on above: Order Comment: Speci men Type: BLOOD SPECIMENOrdering Facility: [facility] Address: [address] [place] [address] Performed By: #### 1 9123-9, 77684-3 ####[facility] [id number] [place] [address] [place] Calcium [Mass/Vol] 9.5 mg/dL Normal 8.5-10.2 [facility] Comment on above: Order Comment: Speci men Type: BLOOD SPECIMENOrdering Facility: [facility] Address: [address] [place] [address] Performed By: #### 1 9123-9, 06931-8 ####[facility] [id number] [place] [address] [place] Chloride [Moles/Vol] 107 mmol/L Normal 98-107 [facility] Comment on above: Order Comment: Speci men Type: BLOOD SPECIMENOrdering Facility: [facility] Address: [address] [place] [address] Performed By: #### 1 9123-9, 08440-0 ####[facility] MILLWARM SPRINGSNCLIA [id number] [place] [address] [place] CO2 [Moles/Vol] 20 mmol/L Low 22-30 [facility] Comment on above: Order Comment: Heber bruce Type: BLOOD SPECIMENOrdering Facility: [facility] Address: [address] [place] [address] Performed By: #### 1 9123-9, 79860-5 ####[facility] [id number] [place] [address] [place] Creatinine [Mass/Vol] 0.88 mg/dL Normal 0.58-0.96 [facility] Comment on above: Order Comment: Speci men Type: BLOOD SPECIMENOrdering Facility: [facility] Address: [address] [place] [address] Performed By: #### 1 9123-9, 02489-5 ####[facility] [id number] [place] [address] [place] Creatinine and Glomerular filtration rate.predicted panel (S/P/Bld) 70 mL/min/1.73m??? Normal >=60 [facility] Comment on above: Order Comment: Heber bruce Type: BLOOD SPECIMENOrdering Facility: [facility] Address: [address] [place] [address] Result Comment: Angeles mated Glomerular Filtration Rate (eGFR) is calculated using the 2020 CKD-EPI creatinine equation. This equation utilizes serum creatinine, sex, and age as parameters. The creatinine assay has traceable calibration to isotope dilution-mass spectrometry. Refer to KDIGO guidelines for clinical interpretation. In patients with unstable renal function, e.g. those with acute kidney injury, the eGFR may not accurately reflect actual GFR. Performed By: #### 1 9123-9, 98679-5 ####[facility] ERNCLIA [id number] [place] [address] [place] Glucose [Mass/Vol] 110 mg/dL High 74-99 [facility] Comment on above: Order Comment: Speci men Type: BLOOD SPECIMENOrdering Facility: [facility] Address: [address] [place], [place] [address] Result Comment: The [place] Diabetes Association (ADA) provides guidance for cutoff values for fasting glucose and random glucose. The ADA defines fasting as no caloric intake for at least 8 hours. Fasting plasma glucose results between 100 to 125 mg/dL indicate increased risk for diabetes (prediabetes). Fasting plasma glucose results greater than or equal to 126 mg/dL meet the criteria for diagnosis of diabetes. In the absence of unequivocal hyperglycemia, results should be confirmed by repeat testing. In a patient with classic symptoms of hyperglycemia or hyperglycemic crisis, random plasma glucose results greater than or equal to 200 mg/dL meet the criteria for diagnosis of diabetes. Reference: Standards of Medical Care in Diabetes 2016, [place] Diabetes Association. Diabetes Care. 2016.39(Suppl 1). Performed By: #### 1 9123-9, 06341-3 ####[facility]ITALLIA [id number] [place] [address] [place] Potassium [Moles/Vol] 4.5 mmol/L Normal 3.7-5.1 [facility] Comment on above: Order Comment: Heber bruce Type: BLOOD SPECIMENOrdering Facility: [facility] Address: [address] [place], [place] [address] Performed By: #### 1 9123-9, 46774-8 ####[facility]PITALWDELIA [id number] [place] [address] [place] Protein [Mass/Vol] 7.4 g/dL Normal 6.3-8.0 [facility] Comment on above: Order Comment: Heber bruce Type: BLOOD SPECIMENOrdering Facility: [facility] Address: [address] [place], [place] [address] Performed By: #### 1 9123-9, ####[facility] MILLWNCLIA [id number] [place] [address] [place] Sodium [Moles/Vol] 140 mmol/L Normal 136-144 [facility] Comment on above: Order Comment: Heber men Type: BLOOD SPECIMENOrdering Facility: [facility] Address: [address] [place] [address] Performed By: #### 1 9123-9, 93368-1 ####[facility] [id number] [place] [address] [place] Urea nitrogen [Mass/Vol] 24 mg/dL High 7-21 [facility] Comment on above: Order Comment: Shelbyi men Type: BLOOD SPECIMENOrdering Facility: [facility] Address: [address] [place] [address] Performed By: #### 1 9123-9, 39721-5 ####[facility] ERNCGUNNISON VALLEY [facility] [id number] [place] [address] [place] HbA1c (Bld)on 02-02-2025 Average glucose Estimated from glycated hemoglobin (Bld) [Mass/Vol] 189 mg/dL Normal [facility] Comment on above: Order Comment: Heber bruce Type: BLOOD SPECIMENOrdering Facility: [facility] Address: [address] [place] [address] Result Comment: eAG: (Estimated average glucose) is a calculated value from HgbA1c and is shipping services sales representative of the average blood glucose level in the last 2-3 month period. Performed By: #### 5 5454-3 ####[facility] LABCLIA [id number] [place] [address] [place] HbA1c (Bld) [Mass fraction] 8.2 % High 4.3-5.6 [facility] Comment on above: Order Comment: Heber janis Type: BLOOD SPECIMENOrdering Facility: [facility] Address: [address] [place] [address] Result Comment: [place] Diabetes Association guidelines indicate that patients with HgbA1c in the range 5.7-6.4% are at increased risk for development of diabetes, and intervention by lifestyle modification may be beneficial. HgbA1c greater or equal to 6.5% is considered diagnostic of diabetes. Performed By: #### 5 5454-3 ####[facility] LABCLIA [id number] [facility] [address], [place] [address] [place] [facility] OF [place] Lipid 1996 panelon 5 Cholesterol [Mass/Vol] 137 mg/dL Normal <200 [facility] Comment on above: Order Comment: Speci men Type: BLOOD SPECIMENOrdering Facility: [facility] Address: [address] [place] [address] Result Comment: <200 mg/dL, Desirable 200-239 mg/dL, Borderline high >239 mg/dL, High Performed By: #### 2 4331-1 ####[facility] LABCLIA [id number] [facility] [address], [place] [id number] [place] [address] OF [place]#### 3016-3 ####[facility] LABCLIA [id number] [address], [address] STATES OF [place] Cholesterol in HDL [Mass/Vol] 48 mg/dL Normal >39 [facility] Comment on above: Order Comment: Speci men Type: BLOOD SPECIMENOrdering Facility: [facility] Address: [address] [place] [address] Result Comment: 40-5 9 mg/dL, Acceptable >59 mg/dL, High: Negative risk factor for coronary heart disease <40 mg/dL, Low: Positive risk factor for coronary heart disease Performed By: #### 2 4331-1 ####[facility] LABCLIA [id number] [facility] [address], [facility]95 [place] [id number] [place] [address] [place]#### 3016-3 ####[facility] LABCLIA [id number] [place] [id number] [place] OF [place] Cholesterol in LDL [Mass/Vol] 74 mg/dL Normal <100 [facility] Comment on above: Order Comment: Speci men Type: BLOOD SPECIMENOrdering Facility: [facility] Address: [address] [place] [address] Result Comment: <100 mg/dL, Optimal 100-129 mg/dL, Near optimal/above optimal 130-159 mg/dL, Borderline high 160-189 mg/dL, High >189 mg/dL, Very high Secondary prevention optimal LDL Cholesterol levels are recommended to be <70 mg/dL LDL cholesterol is calculated using the Rodriges-NIH equation. Performed By: #### 2 4331-1 ####[facility] LABCLIA [id number] [id number] [place] [address]#### 3016-3 ####[facility] LABIA [id number] [address] STATES [facility] Cholesterol in LDL/Cholesterol in HDL [Mass ratio] 1.54 {ratio} Normal <2.54 [facility] Comment on above: Order Comment: Speci men Type: BLOOD SPECIMENOrdering Facility: [facility] Address: [address] [place] [address] Result Comment: Refe rence: 1. National Cholesterol Education Program ATP III Guideline At-A-Glance Quick Desk Reference: National Heart, Lung, and Blood [place]. National Institutes of Health. 2001: NIH Publication No. 01-3305. 2. An International Atherosclerosis Society position paper: global recommendations for the management of dyslipidemia: executive summary, Atherosclerosis. 2014: 232(2):410-413. Performed By: #### 2 4331-1 ####[facility] LABIA [id number] [address] [id number] [place] [address] [place]#### 3016-3 ####[facility] LABCLIA [id number] [facility] [address], [facility]95 [place] Cholesterol in VLDL [Mass/Vol] 11 mg/dL Normal <30 [facility] Comment on above: Order Comment: Speci men Type: BLOOD SPECIMENOrdering Facility: [facility] Address: [address] [place] [address] Performed By: #### 2 4331-1 ####[facility] LABCLIA [id number] [facility] [address], [facility]95 [facility] [id number] [address] STATES OF [place]#### 3016-3 ####[facility] LABCLIA [id number] [address] STATES [facility] Cholesterol non HDL [Mass/Vol] 89 mg/dL Normal <130 [facility] Comment on above: Order Comment: Speci men Type: BLOOD SPECIMENOrdering Facility: [facility] Address: [address] [place] [address] Result Comment: <130 mg/dL, Optimal 130-159 mg/dL, Near optimal/above optimal 160-189 mg/dL, Borderline high 190-219 mg/dL, High >219 mg/dL, Very high Secondary prevention optimal non HDL Cholesterol levels are recommended to be <100 mg/dL Performed By: #### 2 4331-1 ####[facility] LABCLIA [id number] [facility] [address], [facility]95 [place] [facility] [id number] [address] [place]#### 3016-3 ####[facility] LABCLIA [id number] [facility] [place] [id number] [place] Cholesterol.total/ Cholesterol in HDL [Mass ratio] 2.85 {ratio} Normal <5.10 [facility] Comment on above: Order Comment: Speci men Type: BLOOD SPECIMENOrdering Facility: [facility] Address: [address] [place], [place] [address] Performed By: #### 2 4331-1 ####[facility] LABCLIA [id number] [facility] [address] [place] [address] [place] [facility] [id number] [place] [address] [place]#### 3016-3 ####[facility] LABCLIA [id number] [place] [address] [place] FASTING TIME 12 hrs Normal [facility] Comment on above: Order Comment: Speci men Type: BLOOD SPECIMENOrdering Facility: [facility] Address: [address] [place] [address] Performed By: #### 2 4331-1 ####[facility] LABCLIA [id number] [facility] [address], [facility]95 [place] [id number] [place] [address] [place]#### 3016-3 ####[facility] LABCLIA [id number] [facility] [address], [facility]95 [place] Triglyceride [Mass/Vol] 73 mg/dL Normal <150 [facility] Comment on above: Order Comment: Speci men Type: BLOOD SPECIMENOrdering Facility: [facility] Address: [address] [place], [place] [address] Result Comment: <150 mg/dL, Normal 150-199 mg/dL, Borderline high 200-499 mg/dL, High >499 mg/dL, Very high Performed By: #### 2 4331-1 ####[facility] LABCLIA [id number] [facility] [address] [place] [address] [place] [facility] [id number] [place] [address] [place]#### 3016-3 ####[facility] HOSPITALIA [id number] [place] [address] [place] Magnesium SerPl-mCncon 02-02 Magnesium [Mass/Vol] 1.6 mg/dL Low 1.7-2.3 [facility] Comment on above: Order Comment: Speci men Type: BLOOD SPECIMENOrdering Facility: [facility] Address: [address] [place] [address] Performed By: #### 1 9123-9, 59568-7 ####[facility] [id number] [place] [address] [place] TSH SerPl-aCncon 02-02-2025 TSH Qn 6.410 m[IU]/L High 0.270-4.200 [facility] Comment on above: Order Comment: Speci men Type: BLOOD SPECIMENOrdering Facility: [facility] Address: [address] [place] [address] Performed By: #### 2 4331-1 ####[facility] H[facility]PITALIA [id number] [place] [address] [place] [facility] [id number] [place] [address] [place]#### 3016-3 ####[facility] HOSPITALIA [id number] [place] [id number] [place] OF [place] CNOVon 08-03-2024 CNOV Office Visit (INTMWS ) ----- BARBARA ALLEN ([id number]) 1955 F Date Time Provider Department 08/03/24 2:00 PM JILLIAN MOJICA INTVINNY During your visit today, we recorded the following information about you: Pulse Respiration Blood pressure Weight 65/minute 16/minute 114/61 111.6 kg Jillian Mojica APRN.CRECHE ATTENDANT 08/03/2024 2:46 PM Signed SUBJECTIVE: Shingrix Vaccine(1 of 2) Never done RSV Vaccine(1 - Risk 60-74 years 1-dose series) Never done Mammogram Screening due on 07/27/2016 Bone Density Screening due on 2018 DTaP,Tdap,Td Vaccine(2 - Td or Tdap) due on 07/13/2020 Colorectal Cancer Screening due on 06/26/2022 Diabetic Foot Exam due on 08/14/2023 Influenza Vaccine(1) due on 05/03/2024 HPI Barbara Allen is a 69 year old female. PMH significant for ACTIVE PROBLEM LIST Type 2 Diabetes Mellitus With Microalbuminuria, With Long-Term Current Use of Insulin (Hcc) Essential Hypertension Pure Hypercholesterolemia Esophageal Reflux Osteopenia Atrial Fibrillation (Hcc) Presents for routine follow-up visit. Followed by [facility]ology. Continues on Eliquis for atrial fibrillation. Has monitored carotid artery right, US completed per Ms. Allen. HTN: Without rpeort of headache, chest pain, palpitations, dyspnea, orthopnea, fatigue, and PND. Last 14 Encounter BP Readings: Date: BP: 08/03/2024 114/61 01/29/2024 128/64 02/15/2023 124/68 08/14/2022 130/72 02/12/2022 112/60 07/10/2021 122/78 05/19/2021 116/68 03/28/2021 124/78 12/23/2020 136/84 09/05/2020 148/86 05/26/2020 160/90 02/27/2020 140/86 01/28/2020 134/74 01/21/2020 144/82 Hyperlipidemia. Ms. Allen reports doing well on current therapy Her most recent lipid panels are: Cholesterol, Total (mg/dL) Date Value 07/22/2024 160 01/24/2024 143 12/16/2020 167 05/17/2020 198 HDL Cholesterol (mg/dL) Date Value 07/22/2024 53 01/24/2024 50 12/16/2020 51 05/17/2020 57 LDL Cholesterol (mg/dL) Date Value 07/22/2024 89 01/24/2024 77 12/16/2020 96 05/17/2020 123 Triglyceride (mg/dL) Date Value 07/22/2024 89 01/24/2024 78 12/16/2020 101 05/17/2020 89 DIABETES MELLITUS: Reports taking 22 units insulin at bedtime. Does not use CGM. Without report of excessive thirst or increased frequency of urination, chest pain or dyspnea , numbness, tingling or pain in extremities, new or unusual visual symptoms, low sugar/hypoglycemic reactions, weight loss/gain, lightheadedness/dizziness , and bowel changes/loose stools.Patient's last HgA1C was Hemoglobin A1C (%) Date Value 07/22/2024 8.9 01/24/2024 8.9 06/26/2021 6.9 12/16/2020 10.3 ) Declines foot exam today. States no numbness or tingling no sores or open skin on her feet. [facility]. Defers BMD for now. GERD well controlled on PPI. Review of Systems Constitutional: Negative. Cardiovascular: Negative for leg swelling. Endocrine: Negative. Objective BP 114/61 Pulse 65 Resp 16 Wt 111.6 kg (246 lb 0.5 oz) BMI 40.32 kg/m? Physical Exam Vitals and nursing note reviewed. Constitutional: General: She is not in acute distress. Appearance: Normal appearance. She is obese. HENT: Head: Normocephalic and atraumatic. Eyes: Conjunctiva/sclera: Conjunctivae normal. Neck: Thyroid: No thyromegaly. Vascular: Normal carotid pulses. No carotid bruit or JVD. Cardiovascular: Rate and Rhythm: Normal rate. Rhythm irregular. Pulses: Carotid pulses are 2+ on the right side and 3+ on the left side. Radial pulses are 2+ on the right side and 2+ on the left side. Heart sounds: Normal heart sounds. Comments: Prominent left carotid pulse Pulmonary: Effort: Pulmonary effort is normal. Breath sounds: Normal breath sounds. Abdominal: General: Bowel sounds are normal. Palpations: Abdomen is soft. Musculoskeletal: Right lower leg: Edema present. Left lower leg: Edema present. Skin: General: Skin is warm and dry. Neurological: General: No focal deficit present. Mental Status: She is alert and oriented to person, place, and time. ALLERGIES Allergen Reactions Lisinopril Cough Medications furosemide (LASIX) 40 mg tablet Take 1 tablet by mouth two times a day. felodipine ER (PLENDIL) 10 mg 24 hr tablet Take 2 tablets by mouth once daily. glimepiride (AMARYL) 4 mg tablet Take 1 tablet by mouth two times a day with meals. omeprazole (PRILOSEC) 20 mg capsule Take 1 capsule by mouth daily before breakfast. 1/2 hr before meal. insulin needles, DISPOSABLE, (BD INSULIN PEN NEEDLE UF) 31 gauge x 5/16" Use 1 new pen needle with each injection of insulin. 1 daily. Diagnosis: (E11.65, Z79.4) insulin glargine (LANTUS SOLOSTAR U-100 INSULIN) 100 unit/mL (3 mL) Inject 22-32 Units subcutaneously daily at bedtime. potassium chloride (more content not included)... Normal [facility] 25(OH)D3 [facility] 2023 25-hydroxyvitamin D3 [Mass/Vol] 37.0 ng/mL Normal 31.0-80.0 [facility] Comment on above: Order Comment: Speci men Type: BLOOD SPECIMENOrdering Facility: [facility] Address: [address] [place] [address] Performed By: #### 1 989-3 ####[facility] LABCLIA [id number] [facility] [id number] [address] [place] ALBUMIN/CREATININE RATIO, UR INE 07-22-2024 Albumin DL <= 20 mg/L (U) [Mass/Vol] 1218.1 mg/L Normal [facility] Comment on above: Order Comment: Speci men Type: URINE SPECIMENOrdering Facility: [facility] Address: [address] [place] [address] Performed By: #### U ACR ####[facility] LABCLIA [id number] [place] [id number] [place] Albumin/Creatinine (U) [Mass ratio] 2654 mg/g High <30 [facility] Comment on above: Order Comment: Speci men Type: URINE SPECIMENOrdering Facility: [facility] Address: [address] [place] [address] Result Comment: Adul t Male and Female Nephrotic Criteria: <30 mg/g is considered normal to mildly increased 30-300 mg/g is considered moderately increased >300 mg/g is considered severely increased KDIGO. (2013). KDIGO 2012 Clinical Practice Guideline for the Evaluation and Management of Chronic Kidney Disease. Official Journal of the International Society of Nephrology, 3(1), 1-150. Performed By: #### U ACR ####[facility] LABCLIA [id number] [place] [address] [place] Creatinine (U) [Mass/Vol] 45.9 mg/dL Normal 20.0-300.0 [facility] Comment on above: Order Comment: Speci men Type: URINE SPECIMENOrdering Facility: [facility] Address: [address] [place] [address] Performed By: #### U ACR ####[facility] LABCLIA [id number] [place] [address] [place] CBC panel Auto (Bld)on 07-22 Erythrocyte distribution width (RBC) [Ratio] 13.3 % Normal 11.5-15.0 [facility] Comment on above: Order Comment: Speci men Type: BLOOD SPECIMENOrdering Facility: [facility] Address: [address] [place] [address] Performed By: #### 5 8410-2 ####[facility] [id number] [place] [address] [place] Hematocrit (Bld) [Volume fraction] 36.9 % Normal 36.0-46.0 [facility] Comment on above: Order Comment: Speci men Type: BLOOD SPECIMENOrdering Facility: [facility] Address: [address] [place] [address] Performed By: #### 5 8410-2 ####[facility] JAROD [id number] [place] [address] [place] Hemoglobin (Bld) [Mass/Vol] 12.1 g/dL Normal 11.5-15.5 [facility] Comment on above: Order Comment: Speci men Type: BLOOD SPECIMENOrdering Facility: [facility] Address: [address] [place], [place] [address] Performed By: #### 5 8410-2 ####[facility] ERRAOULNunu [id number] [place] [address] [place] MCH (RBC) [Entitic mass] 28.4 pg Normal 26.0-34.0 [facility] Comment on above: Order Comment: Speci men Type: BLOOD SPECIMENOrdering Facility: [facility] Address: [address] [place] [address] Performed By: #### 5 8410-2 ####[facility]PITAL[facility] [id number] [address] STATES OF [place] MCHC (RBC) [Mass/Vol] 32.8 g/dL Normal 30.5-36.0 [facility] Comment on above: Order Comment: Speci men Type: BLOOD SPECIMENOrdering Facility: [facility] Address: [address] [place] [address] Performed By: #### 5 8410-2 ####[facility] ERNCLIA [id number] [place] [address] [place] MCV (RBC) [Entitic vol] 86.6 fL Normal 80.0-100.0 [facility] Comment on above: Order Comment: Speci men Type: BLOOD SPECIMENOrdering Facility: [facility] Address: [address] [place] [address] Performed By: #### 5 8410-2 ####[facility] MILLTOWNCLIA [id number] [place] [address] [place] Nucleated RBC (Bld) [#/Vol] 10*3/uL Normal <0.01 [facility] Comment on above: Order Comment: Speci men Type: BLOOD SPECIMENOrdering Facility: [facility] Address: [address] [place] [address] Performed By: #### 5 8410-2 ####[facility] MILLWNCLIA [id number] [place] [address] [place] Platelet mean volume (Bld) [Entitic vol] 10.0 fL Normal 9.0-12.7 [facility] Comment on above: Order Comment: Speci men Type: BLOOD SPECIMENOrdering Facility: [facility] Address: [address] [place] [address] Performed By: #### 5 8410-2 ####[facility]ITALWNCL[facility] [id number] [place] [address] [place] Platelets (Bld) [#/Vol] 209 10*3/uL Normal 150-400 [facility] Comment on above: Order Comment: Speci men Type: BLOOD SPECIMENOrdering Facility: [facility] Address: [address] [place] [address] Performed By: #### 5 8410-2 ####[facility] MILLTOWNCLIA [id number] [place] [address] [place] RBC (Bld) [#/Vol] 4.26 10*6/uL Normal 3.90-5.20 [facility] Comment on above: Order Comment: Speci men Type: BLOOD SPECIMENOrdering Facility: [facility] Address: [address] [place] [address] Performed By: #### 5 8410-2 ####[facility] ERNCLIA [id number] [place] [address] [place] WBC (Bld) [#/Vol] 7.45 10*3/uL Normal 3.70-11.00 [facility] Comment on above: Order Comment: Speci men Type: BLOOD SPECIMENOrdering Facility: [facility] Address: [address] [place] [address] Performed By: #### 5 8410-2 ####[facility]IT[facility] [id number] [place] [address] [place] Comprehensive metabolic 2000 panelon 07-22-2024 Albumin [Mass/Vol] 4.1 g/dL Normal 3.9-4.9 [facility] Comment on above: Order Comment: Speci men Type: BLOOD SPECIMENOrdering Facility: [facility] Address: [address] [place] [address] Performed By: #### 2 4323-8, 26031-9 ####[facility]ITAL[facility] [id number] [place] [address] [place] ALP [Catalytic activity/Vol] 122 U/L Normal 34-123 [facility] Comment on above: Order Comment: Speci men Type: BLOOD SPECIMENOrdering Facility: [facility] Address: [address] [place] [address] Performed By: #### 2 4323-8, 07287-6 ####[facility] [id number] [address] [place] ALT [Catalytic activity/Vol] 8 U/L Normal 7-38 [facility] Comment on above: Order Comment: Speci men Type: BLOOD SPECIMENOrdering Facility: [facility] Address: [address] [place] [address] Performed By: #### 2 4323-8, 13438-8 ####[facility] ERNCLIA [id number] [place] [address] [place] Anion gap [Moles/Vol] 14 mmol/L Normal 8-15 [facility] Comment on above: Order Comment: Speci men Type: BLOOD SPECIMENOrdering Facility: [facility] Address: [address] [place] [address] Performed By: #### 2 4323-8, 93489-1 ####[facility] MILLTOWRAOULLIA [id number] [place] [address] [place] AST [Catalytic activity/Vol] 11 U/L Low 13-35 [facility] Comment on above: Order Comment: Speci men Type: BLOOD SPECIMENOrdering Facility: [facility] Address: [address] [place] [address] Performed By: #### 2 4323-8, ####[facility] MILLCAINWRAOULLIA [id number] [place] [address] [place] Bilirubin [Mass/Vol] 0.5 mg/dL Normal 0.2-1.3 [facility] Comment on above: Order Comment: Speci men Type: BLOOD SPECIMENOrdering Facility: [facility] Address: [address] [place] [address] Performed By: #### 2 4323-8, ####[facility] MILLWRAOULLIA [id number] [place] [address] [place] Calcium [Mass/Vol] 9.6 mg/dL Normal 8.5-10.2 [facility] Comment on above: Order Comment: Speci men Type: BLOOD SPECIMENOrdering Facility: [facility] Address: [address] [place] [address] Performed By: #### 2 4323-8, ####[facility] MILLTOWNCLIA [id number] [place] [address] [place] Chloride [Moles/Vol] 104 mmol/L Normal 98-107 [facility] Comment on above: Order Comment: Speci men Type: BLOOD SPECIMENOrdering Facility: [facility] Address: [address] [place] [address] Performed By: #### 2 4323-8, ####[facility] [id number] [place] [address] [place] CO2 [Moles/Vol] 21 mmol/L Low 22-30 [facility] Comment on above: Order Comment: Speci men Type: BLOOD SPECIMENOrdering Facility: [facility] Address: [address] [place] [address] Performed By: #### 2 4323-8, ####[facility] [id number] [address] [place] Creatinine [Mass/Vol] 0.84 mg/dL Normal 0.58-0.96 [facility] Comment on above: Order Comment: Speci men Type: BLOOD SPECIMENOrdering Facility: [facility] Address: [address] [place] [address] Performed By: #### 2 4323-8, ####[facility] [id number] [address] OF [facility] Creatinine and Glomerular filtration rate.predicted panel (S/P/Bld) 74 mL/min/1.73m??? Normal >=60 [facility] Comment on above: Order Comment: Speci men Type: BLOOD SPECIMENOrdering Facility: [facility] Address: [address] [place] [address] Result Comment: [place] mated Glomerular Filtration Rate (eGFR) is calculated using the 2020 CKD-EPI creatinine equation. This equation utilizes serum creatinine, sex, and age as parameters. The creatinine assay has traceable calibration to isotope dilution-mass spectrometry. Refer to KDIGO guidelines for clinical interpretation. In patients with unstable renal function, e.g. those with acute kidney injury, the eGFR may not accurately reflect actual GFR. Performed By: #### 2 4323-8, 88254-8 ####[facility] MARBELLA BRUCEWNCLIA [id number] [place] [address] [place] Glucose [Mass/Vol] 79 mg/dL Normal 74-99 [facility] Comment on above: Order Comment: Speci men Type: BLOOD SPECIMENOrdering Facility: [facility] Address: [address] [place] [address] Result Comment: The [place] Diabetes Association (ADA) provides guidance for cutoff values for fasting glucose and random glucose. The ADA defines fasting as no caloric intake for at least 8 hours. Fasting plasma glucose results between 100 to 125 mg/dL indicate increased risk for diabetes (prediabetes). Fasting plasma glucose results greater than or equal to 126 mg/dL meet the criteria for diagnosis of diabetes. In the absence of unequivocal hyperglycemia, results should be confirmed by repeat testing. In a patient with classic symptoms of hyperglycemia or hyperglycemic crisis, random plasma glucose results greater than or equal to 200 mg/dL meet the criteria for diagnosis of diabetes. Reference: Standards of Medical Care in Diabetes 2016, [place] Diabetes Association. Diabetes Care. 2016.39(Suppl 1). Performed By: #### 2 4323-8, 51700-4 ####[facility] HOSPITALA [id number] [place] [address] [place] Potassium [Moles/Vol] 3.9 mmol/L Normal 3.7-5.1 [facility] Comment on above: Order Comment: Speci men Type: BLOOD SPECIMENOrdering Facility: [facility] Address: [address] [place] [address] Performed By: #### 2 4323-8, ####[facility] ERNCLIA [id number] [place] [address] [place] Protein [Mass/Vol] 7.5 g/dL Normal 6.3-8.0 [facility] Comment on above: Order Comment: Shelbyi men Type: BLOOD SPECIMENOrdering Facility: [facility] Address: [address] [place] [id number] Performed By: #### 2 4323-8, 77951-5 ####[facility] [id number] [place] [address] [place] Sodium [Moles/Vol] 139 mmol/L Normal 136-144 [facility] Comment on above: Order Comment: Speci men Type: BLOOD SPECIMENOrdering Facility: [facility] Address: [address] [place] [address] Performed By: #### 2 4323-8, ####[facility] [id number] [place] [address] [place] Urea nitrogen [Mass/Vol] 23 mg/dL High 7-21 [facility] Comment on above: Order Comment: Speci men Type: BLOOD SPECIMENOrdering Facility: [facility] Address: [address] [place] [address] Performed By: #### 2 4323-8, 63993-4 ####[facility] [id number] [place] [address] [place] HbA1c (Bld)on 07-22-2024 Average glucose Estimated from glycated hemoglobin (Bld) [Mass/Vol] 209 mg/dL Normal [facility] Comment on above: Order Comment: Speci men Type: BLOOD SPECIMENOrdering Facility: [facility] Address: [address] [place] [address] Result Comment: eAG: (Estimated average glucose) is a calculated value from HgbA1c and is shipping services sales representative of the average blood glucose level in the last 2-3 month period. Performed By: #### 5 5454-3 ####[facility] LABCLIA [id number] [place] [address] [place] HbA1c (Bld) [Mass fraction] 8.9 % High 4.3-5.6 [facility] Comment on above: Order Comment: Speci men Type: BLOOD SPECIMENOrdering Facility: [facility] Address: [address] [place] [address] Result Comment: [place] Diabetes Association guidelines indicate that patients with HgbA1c in the range 5.7-6.4% are at increased risk for development of diabetes, and intervention by lifestyle modification may be beneficial. HgbA1c greater or equal to 6.5% is considered diagnostic of diabetes. Performed By: #### 5 5454-3 ####[facility] LABCLIA [id number] [address] Lipid 1996 panelon 4 Cholesterol [Mass/Vol] 160 mg/dL Normal <200 [facility] Comment on above: Order Comment: Heber men Type: BLOOD SPECIMENOrdering Facility: [facility] Address: [address] [place] [address] Result Comment: <200 mg/dL, Desirable 200-239 mg/dL, Borderline high >239 mg/dL, High Performed By: #### 3 016-3 ####[facility] LABCLIA [id number] [place] [address] [place]#### 92897-2 ####[facility] LABCLIA [id number] [address] OF [facility] [id number] [address] [place] Cholesterol in HDL [Mass/Vol] 53 mg/dL Normal >39 [facility] Comment on above: Order Comment: Heber men Type: BLOOD SPECIMENOrdering Facility: [facility] Address: [address] [place] [address] Result Comment: 40-5 9 mg/dL, Acceptable >59 mg/dL, High: Negative risk factor for coronary heart disease <40 mg/dL, Low: Positive risk factor for coronary heart disease Performed By: #### 3 016-3 ####[facility] LABCLIA [id number] [address] [place]#### 43141-4 ####[facility] LABCLIA [id number] [address] [id number] [address] STATES OF [facility] Cholesterol in LDL [Mass/Vol] 89 mg/dL Normal <100 [facility] Comment on above: Order Comment: Speci men Type: BLOOD SPECIMENOrdering Facility: [facility] Address: [address] [place] [address] Result Comment: <100 mg/dL, Optimal 100-129 mg/dL, Near optimal/above optimal 130-159 mg/dL, Borderline high 160-189 mg/dL, High >189 mg/dL, Very high Secondary prevention optimal LDL Cholesterol levels are recommended to be < 70 mg/dL Performed By: #### 3 016-3 ####[facility] LABCLIA [id number] [address]#### 86670-9 ####[facility] LABCLIA [id number] [address] [id number] [address] Cholesterol in LDL/Cholesterol in HDL [Mass ratio] 1.68 {ratio} Normal <2.54 [facility] Comment on above: Order Comment: Speci men Type: BLOOD SPECIMENOrdering Facility: [facility] Address: [address] [place] [address] Result Comment: Refe rence: 1. National Cholesterol Education Program ATP III Guideline At-A-Glance Quick Desk Reference: National Heart, Lung, and Blood [place]. National Institutes of Health. 2001: NIH Publication No. 01-3305. 2. An International Atherosclerosis Society position paper: global recommendations for the management of dyslipidemia: executive summary, Atherosclerosis. 2014: 232(2):410-413. Performed By: #### 3 016-3 ####[facility] LABCLIA [id number] [place] [id number] [place]#### 47394-7 ####[facility] LABCLIA [id number] [place] [id number] [facility] [id number] [place] [address] [place] Cholesterol in VLDL [Mass/Vol] 18 mg/dL Normal <30 [facility] Comment on above: Order Comment: Speci men Type: BLOOD SPECIMENOrdering Facility: [facility] Address: [address] [place] [address] Performed By: #### 3 016-3 ####[facility] LABCLIA [id number] [place] [address] [place]#### 91234-8 ####[facility] LABCLIA [id number] [address] STATES [facility] [id number] [place] [address] [place] Cholesterol non HDL [Mass/Vol] 107 mg/dL Normal <130 [facility] Comment on above: Order Comment: Speci men Type: BLOOD SPECIMENOrdering Facility: [facility] Address: [address] [place] [address] Result Comment: <130 mg/dL, Optimal 130-159 mg/dL, Near optimal/above optimal 160-189 mg/dL, Borderline high 190-219 mg/dL, High >219 mg/dL, Very high Secondary prevention optimal non HDL Cholesterol levels are recommended to be <100 mg/dL Performed By: #### 3 016-3 ####[facility] LABCLIA [id number] [place] [id number] [place]#### 70460-8 ####[facility] LABCLIA [id number] [place] [address] [id number] [place] [address] [place] Cholesterol.total/ Cholesterol in HDL [Mass ratio] 3.02 {ratio} Normal <5.10 [facility] Comment on above: Order Comment: Speci men Type: BLOOD SPECIMENOrdering Facility: [facility] Address: [address] [place] [address] Performed By: #### 3 016-3 ####[facility] LABCLIA [id number] [place] [address] [place]#### 66521-1 ####[facility] LABCLIA [id number] [address] STATES [facility] [id number] [place] [address] [place] FASTING TIME 12 hrs Normal [facility] Comment on above: Order Comment: Speci men Type: BLOOD SPECIMENOrdering Facility: [facility] Address: [address] [place] [address] Performed By: #### 3 016-3 ####[facility] LABCLIA [id number] [place] [address] [place]#### 84076-3 ####[facility] LABCLIA [id number] [place] [address] [place] [facility] [id number] [place] [address] [place] Triglyceride [Mass/Vol] 89 mg/dL Normal <150 [facility] Comment on above: Order Comment: Speci men Type: BLOOD SPECIMENOrdering Facility: [facility] Address: [address] [place] [address] Result Comment: <150 mg/dL, Normal 150-199 mg/dL, Borderline high 200-499 mg/dL, High >499 mg/dL, Very high Performed By: #### 3 016-3 ####[facility] LABCLIA [id number] [place] [address] [place]#### 12616-4 ####[facility] LABCLIA [id number] [place] [id number] [place] [facility] [id number] [place] [address] [place] Magnesium SerPl-mCncon 07-22 Magnesium [Mass/Vol] 1.7 mg/dL Normal 1.7-2.3 [facility] Comment on above: Order Comment: Speci men Type: BLOOD SPECIMENOrdering Facility: [facility] Address: [address] [place] [address] Performed By: #### 2 4323-8, 41077-7 ####[facility] [id number] [place] [address] [place] TSH SerPl-aCncon 07-22-2024 TSH Qn 8.150 m[IU]/L High 0.270-4.200 [facility] Comment on above: Order Comment: Speci men Type: BLOOD SPECIMENOrdering Facility: [facility] Address: [address] [place] [address] Performed By: #### 3 016-3 ####[facility] LABCLIA [id number] [place] [address] [place]#### 11271-2 ####[facility] LABIA [id number] [place] [id number] [place] [facility] [id number] [place] [address] [place] Urinalysis complete panel (U )on 07-22-2024 BACTERIA UL >9821 High Negative [facility] Comment on above: Order Comment: Speci men Type: URINE SPECIMENOrdering Facility: [facility] Address: [address] [place] [address] Performed By: #### 2 4356-8 ####[facility] LABCLIA [id number] [place] [address] [place] Bilirubin Ql (U) Negative Normal Negative [facility] Comment on above: Order Comment: Speci men Type: URINE SPECIMENOrdering Facility: [facility] Address: [address] [place] [address] Performed By: #### 2 4356-8 ####[facility] LABCLIA [id number] [place] [address] [place] Clarity (Unsp spec) Cloudy Abnormal Clear [facility] Comment on above: Order Comment: Speci men Type: URINE SPECIMENOrdering Facility: [facility] Address: [address] [place] [address] Performed By: #### 2 4356-8 ####[facility] LABCLIA [id number] [place] [address] [place] Color (U) Yellow Normal Yellow [facility] Comment on above: Order Comment: Speci men Type: URINE SPECIMENOrdering Facility: [facility] Address: [address] [place] [address] Performed By: #### 2 4356-8 ####[facility] LABCLIA [id number] [place] [address] [place] Epithelial cells LM.HPF (Urine sed) [#/Area] Few Normal [facility] Comment on above: Order Comment: Speci men Type: URINE SPECIMENOrdering Facility: [facility] Address: [address] [place] [address] Performed By: #### 2 4356-8 ####[facility] LABCLIA [id number] [place] [address] [place] Glucose Test strip (U) [Mass/Vol] Negative Normal Negative [facility] Comment on above: Order Comment: Speci men Type: URINE SPECIMENOrdering Facility: [facility] Address: [address] [place] [address] Performed By: #### 2 4356-8 ####[facility] LABCLIA [id number] [place] [address] [place] Hemoglobin Ql (U) 1+ Abnormal Negative [facility] Comment on above: Order Comment: Speci men Type: URINE SPECIMENOrdering Facility: [facility] Address: [address] [place] [address] Performed By: #### 2 4356-8 ####[facility] LABCLIA [id number] [place] [address] [place] Hyaline casts (Urine sed) [#/Area] 1-3 /LPF Abnormal 0 /LPF [facility] Comment on above: Order Comment: Speci men Type: URINE SPECIMENOrdering Facility: [facility] Address: [address] [place] [address] Performed By: #### 2 4356-8 ####[facility] LABCLIA [id number] [place] [address] [place] Ketones Ql (U) Negative Normal Negative [facility] Comment on above: Order Comment: Speci men Type: URINE SPECIMENOrdering Facility: [facility] Address: [address] [place] [address] Performed By: #### 2 4356-8 ####[facility] LABCLIA [id number] [place] [address] [place] Leukocyte esterase Test strip Ql (U) 1+ Abnormal Negative [facility] Comment on above: Order Comment: Speci men Type: URINE SPECIMENOrdering Facility: [facility] Address: [address] [place] [address] Performed By: #### 2 4356-8 ####[facility] LABCLIA [id number] [place] [address] [place] Nitrite Ql (U) Positive Abnormal Negative [facility] Comment on above: Order Comment: Speci men Type: URINE SPECIMENOrdering Facility: [facility] Address: [address] [place] [address] Performed By: #### 2 4356-8 ####[facility] LABIA [id number] [place] [address] [place] pH (U) 7.5 [pH] Normal <8.5 [facility] Comment on above: Order Comment: Speci men Type: URINE SPECIMENOrdering Facility: [facility] Address: [address] [place] [address] Performed By: #### 2 4356-8 ####[facility] LABIA [id number] [place] [address] [place] Protein (U) [Mass/Vol] 3+ Abnormal Negative [facility] Comment on above: Order Comment: Speci men Type: URINE SPECIMENOrdering Facility: [facility] Address: [address] [place] [address] Performed By: #### 2 4356-8 ####[facility] LABIA [id number] [place] [address] [place] RBC LM.HPF (Urine sed) [#/Area] 6-10 /HPF Abnormal 0-2 /HPF [facility] Comment on above: Order Comment: Speci men Type: URINE SPECIMENOrdering Facility: [facility] Address: [address] [place] [address] Performed By: #### 2 4356-8 ####[facility] LABIA [id number] [place] [address] [place] Specific gravity (U) [Rel density] 1.013 Normal 1.005-1.030 [facility] Comment on above: Order Comment: Speci men Type: URINE SPECIMENOrdering Facility: [facility] Address: [address] [place] [address] Performed By: #### 2 4356-8 ####[facility] LABIA [id number] [place] [address] [place] Urobilinogen Ql (U) 0.2 EU/dL Normal 0.2-1.0 EU/dL [facility] Comment on above: Order Comment: Speci men Type: URINE SPECIMENOrdering Facility: [facility] Address: [address] [place] [address] Performed By: #### 2 4356-8 ####[facility] [id number] [place] [address] [place] WBC LM.HPF (Urine sed) [#/Area] /[HPF] Abnormal 0-5 /HPF [facility] Comment on above: Order Comment: Speci men Type: URINE SPECIMENOrdering Facility: [facility] Address: [address] [place] [address] Performed By: #### 2 4356-8 ####[facility] [id number] [address] [place] [facility] BARBARA ALLEN ([id number]) 1955 F Date Time Provider Department 06/03/24 RODRIGO SEPULVEDA INTWS During your visit today, we recorded the following information about you: Yasmeen Whatley LPN 06/03/2024 11:31 AM Signed [facility] pharmacy calling asking to have directions on Furosemide 40 mg rx clarified. Rx say one tablet twice daily, in morning. Last rx that they processed was from [facility] and it was once daily. Can send new rx with new directions or can call. Please advise Rodrigo Sepulveda MD 06/03/2024 7:03 PM Signed There was a RX that went through for once daily from [facility]. I sent the one for twice daily so that would have enough if needs to take twice daily some days or if taking twice daily already. Check with patient how she is taking the med now The following approved medication requests have been transmitted electronically. Requested Prescriptions Signed Prescriptions Disp Refills furosemide (LASIX) 40 mg tablet 180 tablet 3 Sig: Take 1 tablet by mouth two times a day. Authorizing Provider: RODRIGO SEPULVEDA MD Quattrocchi, Beth, LPN 06/04/2024 9:05 AM Signed Phoned patient left message to return call and ask to speak to a nurse. Norma Kim LPN 06/04/2024 12:47 PM Signed Pt returns call, gave information provided, pt voices understanding. Allergies As of Date: 06/03/2024 Noted Allergy Reaction LISINOPRIL 03/10/2014 3 - Cough Date Reviewed: 01/29/2024 Reviewed by: Rodrigo Sepulveda MD - Fully Assessed Reason for Visit: clarify rx directions [Other] Visit Diagnoses:Venous stasis dermatitis of right lower extremity [I87.2] Lower extremity edema [R60.0] Order(s):furosemide (LASIX) 40 mg tabletTake 1 tablet by mouth two times a day.Disp: 180 tabletRfl: 3 Prescriptions as of 06/04/2024 - furosemide (LASIX) 40 mg tablet Take 1 tablet by mouth two times a day. - felodipine ER (PLENDIL) 10 mg 24 hr tablet Take 2 tablets by mouth once daily. - glimepiride (AMARYL) 4 mg tablet Take 1 tablet by mouth two times a day with meals. - omeprazole (PRILOSEC) 20 mg capsule Take 1 capsule by mouth daily before breakfast. 1/2 hr before meal. - insulin needles, DISPOSABLE, (BD INSULIN PEN NEEDLE UF) 31 gauge x 5/16" Use 1 new pen needle with each injection of insulin. 1 daily. Diagnosis: (E11.65, Z79.4) - insulin glargine (LANTUS SOLOSTAR U-100 INSULIN) 100 unit/mL (3 mL) Inject 22-32 Units subcutaneously daily at bedtime. - potassium chloride ER (KLOR-CON) 20 mEq tablet Take 1 tablet by mouth two times a day. - simvastatin (ZOCOR) 40 mg tablet Take 1 tablet by mouth once daily. - ferrous sulfate 325 mg (65 mg iron) tablet Take 1 tablet by mouth every other day. - blood sugar diagnostic ([employer] ULTRA TEST) test strip Use as instructed FOR TESTING twice daily. Dx: E11.65, Z79.4, Insulin: YES - Blood-Glucose Meter (ACCU-CHEK KENNETH PLUS METER) 1 Each twice daily. And a s needed for symptoms of sugars too high or too low. DX: E11.65 - ELIQUIS 5 mg tab(s) Take 5 mg by mouth twice daily. - digoxin (LANOXIN) 125 mcg (0.125 mg) tablet Take 125 mcg by mouth once daily. - hydrALAZINE (APRESOLINE) 25 mg tablet Take 25 mg by mouth three times daily. - isosorbide mononitrate ER (IMDUR) 30 mg 24 hr tablet Take 30 mg by mouth once daily. - carvedilol (COREG) 12.5 mg tablet TAKE 1 TABLET BY MOUTH TWICE A DAY WITH A MEAL OR FOOD - CRANBERRY - Miscellaneous Medical Supply Jobst stockings 30 mm Hg Knee high (dispense 4 pairs). (I87.303) Stasis edema of both lower extremities - Multivitamins chew Take 2 tablets daily. Problem List As Of Date 06/03/2024 Noted Resolved Type 2 diabetes mellitus with microalbuminuria,* 005 Essential hypertension [I10] 05/01/2005 PURE HYPERCHOLESTEROLEM [E78.00] 05/01/2005 ESOPHAGEAL REFLUX [K21.9] 05/08/2006 Class 3 severe obesity with body mass index (BM*05/08/2006 03/18/2023 Osteopenia [M85.80] 03/03/2012 Uncontrolled type 2 diabetes mellitus with insu*01/28/2020 09/03/2021 Atrial fibrillation (HCC) [I48.91] 03/18/2023 Prescriptions ordered this encounter Disp Refills Start End FUROSEMIDE 40 MG TABLET 180 * 3 06/03/2024 Route: ORAL Sig: Take 1 tablet by mouth two times a day. Medications Discontinued During This Encounter Prescriptions - furosemide (LASIX) 40 mg tablet (Discontinued) Take 1 tablet by mouth two times a day. in morning Encounter Status:Closed by NORMA KIM on 06/04/24 Normal [facility] Cardiology Visit Reporton Cardiology Visit Report [facility] [address] [place] [address] OFFICE VISIT Date of Service: 02/11/24 MR#: [id number] Acct: [id number] Name: BARBARA ALLEN Rep #: [id number] : 1955 Provider: SHAILESH saenz Age/Sex: 68/F Location: [facility] Status: Signed [facility] History of Present Illness Details: This is a 68-year-old female who presents to the office today for a cardiovascular follow-up visit. She has a history of atrial fibrillation, congestive heart failure, hyperlipidemia, hypertension,pulmonary hypertension, and diabetes. She also has a history of obstructive sleep apnea. As you recall, the patient was admitted to [facility] in December 2020 for atrial fibrillation as well as congestive heart failure. Her echocardiogram on 01/25/2021 showed ejection fraction of 35%, mildly enlarged left atrium, mild mitral valve insufficiency, RVSP of 66 mmHg, and borderline enlarged aortic root. She underwent a heart catheterization on 01/27/2021 which showed an ejection fraction of 25%, severe pulmonary hypertension, and a proximal LAD with mild luminal irregularities, normal LCx, and normal RCA. She did have a follow-up transthoracic echocardiogram in April 2021, which demonstrated an improved ejection fraction of 55%. From a cardiac standpoint, the patient is doing well. She denies any palpitations, chest pain, pressure or heaviness. She denies SOB, Orthopnea, and PND. She does wear a CPAP nightly with oxygen. She does not have bleeding issues; no blood in urine, stool or nosebleeds. She denies any decrease in energy level, myalgias, or claudication. She does acknowledge bilateral lower extremity edema. She denies sudden weight gain. She denies dizziness, lightheadedness, syncopal or near syncopal episodes, and headaches. Intake Vital Signs 07/09/23 13:34 02/11/24 13:15 Height 5 ft 6 in 5 ft 6 in Weight: 237 lb BMI 38.2 BP 122/70 H Blood Pressure Location Lt brachial Position Sitting Respiration 18 Pulse 84 Pulse Source Monitor Pulse Oximetry (%) 92 Intake Visit Reasons: 7 M FU Civil Service Clerk Required: No Is patient in pain?: No Allergies lisinopril Allergy (Verified 02/11/24 13:56) Laryngospasms Medications ???Medication ???Instructions ???Recorded ???Confirmed ???Type felodipine 10 mg tablet,extended 20 mg PO DAILY High BP 12/14/19 02/11/24 History release 24 hr glimepiride 4 mg tablet 4 mg PO BIDCM Diabetes 12/14/19 02/11/24 History omeprazole 20 mg capsule,delayed 20 mg PO DAILY GERD 12/14/19 02/11/24 History release multivitamin 1 tab PO DAILY SUPPLEMENT 01/25/21 02/11/24 History simvastatin 40 mg tablet 40 mg PO QHS #90 tabs 02/27/21 02/11/24 Rx insulin glargine 100 unit/mL (3 18 unit subcut QHS DM 12/25/21 02/11/24 History mL) subcutaneous pen potassium chloride 20 mEq 40 meq (2 x 20 mEq) PO DAILY #180 01/30/22 02/11/24 Rx tablet,extended release (K-Tab) tabs apixaban 5 mg tablet (Eliquis) 5 mg PO BID #60 tabs 03/18/23 02/11/24 Rx digoxin 125 mcg (0.125 mg) tablet 125 mcg PO DAILY #90 tabs 04/21/23 02/11/24 Rx isosorbide mononitrate 30 mg 30 mg PO DAILY #90 tabs 04/21/23 02/11/24 Rx tablet,extended release 24 hr ferrous sulfate 325 mg (65 mg 325 mg PO DAILY 07/09/23 02/11/24 History iron) tablet (FeroSul) furosemide 40 mg tablet See Rx Instructions .Route 08/28/23 02/11/24 Rx .COMPLEX #180 tabs carvedilol 12.5 mg tablet See Rx Instructions .Route 09/30/23 02/11/24 Rx .COMPLEX #180 tabs hydralazine 25 mg tablet 25 mg PO TID #270 tabs 05/22/24 06/11/24 Rx cholecalciferol (vitamin D3) 50 50 mcg PO DAILY 02/11/24 02/11/24 History mcg (2,000 unit) capsule [facility] History (Reviewed 02/11/24 @ 13:56 by Evy Pascal HEALTHCARE ADVISORY SERVICES MANAGER, HEALTHCARE ADVISORY SERVICES MANAGER-C) Type 2 diabetes mellitus Mixed hyperlipidemia Atherosclerotic heart disease of [place] coronary artery without angina pectoris Essential hypertension Pulmonary hypertension assoc with unclear multi-factorial mechanisms MORGAN (obstructive sleep apnea) CAD (coronary artery disease) Cardiomyopathy History of left heart catheterization (LHC) ( 01/27/21) Sleep apnea GERD (gastroesophageal reflux disease) Diabetes Surgical History (Reviewed 02/11/24 @ 13:56 by Evy Pascal HEALTHCARE ADVISORY SERVICES MANAGER, HEALTHCARE ADVISORY SERVICES MANAGER-C) History of tonsillectomy Family History Mother No history of heart disease Father No history of heart disease Social History Smoking Status: Never smoker alcohol intake: never substance use type: does not use ROS Const Const: Negative for fatigue, weakness, fever(s), headache(s), chills, frequent falls, weight gain or weight loss Eyes Eyes: Negative for blind spots, loss of peripheral vision, (more content not included)... Normal [facility] Vital Signs Date Time Vital Sign Value Performing Clinician Facility 02-17-2025 09:54-0400 Body height 166.4 cm Rodrigo Sepulveda MD Work Phone: [facility] 02-17-2025 09:54-0400 Body mass index (BMI) [Ratio] 39.99 kg/m2 Rodrigo Sepulveda MD Work Phone: [facility] 02-17-2025 09:54-0400 Body temperature 97.9 [degF] Rodrigo Sepulveda MD Work Phone: [facility] 02-17-2025 09:54-0400 Body weight 110.7 kg Rodrigo Sepulveda MD Work Phone: [facility] 02-17-2025 09:54-0400 Diastolic blood pressure 64 mm[Hg] Rodrigo Sepulveda MD Work Phone: [facility] 02-17-2025 09:54-0400 Heart rate 85 /min Rodrigo Sepulveda MD Work Phone: [facility] 02-17-2025 09:54-0400 Respiratory rate 14 /min Rodrigo Sepulveda MD Work Phone: [facility] 02-17-2025 09:54-0400 SaO2% (BldA) [Mass fraction] 97 % Rodrigo Sepulveda MD Work Phone: [facility] 02-17-2025 09:54-0400 Systolic blood pressure 128 mm[Hg] Rodrigo Sepulveda MD Work Phone: [facility] 02-04-2025 14:13-0400 Body height 167.[address] Rodrigo Sepulveda MD Work Phone: [facility] 02-04-2025 14:13-0400 Body mass index (BMI) [Ratio] 38.9 kg/m2 Dr. Rodrigo Sepulveda MD Work Phone: [phone] [place] [address] 02-04-2025 14:13-0400 Body weight 109.[address] Rodrigo Sepulveda MD Work Phone: 8([phone])[phone] [place] [address] 02-04-2025 14:13-0400 Diastolic blood pressure 70 mm[Hg] Dr. Rodrigo Sepulveda MD Work Phone: [facility] 02-04-2025 14:13-0400 Heart rate 81 /min Dr. Rodrigo Sepulveda MD Work Phone: [facility] 02-04-2025 14:13-0400 Respiratory rate 18 /min Dr. Rodrigo Sepulveda MD Work Phone: 2(170)[phone] [place] [address] 02-04-2025 14:13-0400 SaO2% (BldA) [Mass fraction] 97 % Dr. Rodrigo Sepulveda MD Work Phone: [facility] 02-04-2025 14:13-0400 Systolic blood pressure 112 mm[Hg] Dr. Rodrigo Sepulveda MD Work Phone: [facility] 08-03-2024 14:00-0500 Body mass index (BMI) [Ratio] 40.32 kg/m2 Jillian Mojica PACKING CHECKER.CRECHE ATTENDANT Work Phone: [facility] 08-03-2024 14:00-0500 Body weight 111.6 kg Jillian Mojica PACKING CHECKER.CRECHE ATTENDANT Work Phone: [facility] 08-03-2024 14:00-0500 Diastolic blood pressure 61 mm[Hg] Jillian Mojica PACKING CHECKER.CRECHE ATTENDANT Work Phone: [facility] 08-03-2024 14:00-0500 Heart rate 65 /min Jillian Mojica PACKING CHECKER.CRECHE ATTENDANT Work Phone: [facility] 08-03-2024 14:00-0500 Respiratory rate 16 /min Jillian Mojica PACKING CHECKER.CRECHE ATTENDANT Work Phone: [facility] 08-03-2024 14:00-0500 Systolic blood pressure 114 mm[Hg] Jillian Mojica PACKING CHECKER.CRECHE ATTENDANT Work Phone: [facility] 01-29-2024 14:05-0400 Body mass index (BMI) [Ratio] 39.49 kg/m2 Rodrigo Sepulveda MD Work Phone: [facility] 01-29-2024 14:05-0400 Body temperature 96.49 [degF] Rodrigo Sepulveda MD Work Phone: [facility] 01-29-2024 14:05-0400 Body weight 109.32 kg Rodrigo Sepulveda MD Work Phone: [facility] 01-29-2024 14:05-0400 Diastolic blood pressure 64 mm[Hg] Rodrigo Sepulveda MD Work Phone: [facility] 01-29-2024 14:05-0400 Heart rate 87 /min Rodrigo Sepulveda MD Work Phone: [facility] 01-29-2024 14:05-0400 Respiratory rate 18 /min Rodrigo Sepulveda MD Work Phone: [facility] 01-29-2024 14:05-0400 SaO2% (BldA) [Mass fraction] 97 % Rodrigo Sepulveda MD Work Phone: [facility] 01-29-2024 14:05-0400 Systolic blood pressure 128 mm[Hg] Rodrigo Sepulveda MD Work Phone: [facility] 02-15-2023 13:49-0400 Body temperature 97.81 [degF] Rodrigo Sepulveda MD Work Phone: [facility] 02-15-2023 13:49-0400 Body weight 109.32 kg Rodrigo Sepulveda MD Work Phone: [facility] 02-15-2023 13:49-0400 Diastolic blood pressure 68 mm[Hg] Rodrigo Sepulveda MD Work Phone: [facility] 02-15-2023 13:49-0400 Heart rate 85 /min Rodrigo Sepulveda MD Work Phone: [facility] 02-15-2023 13:49-0400 Respiratory rate 18 /min Rodrigo Sepulveda MD Work Phone: [facility] 02-15-2023 13:49-0400 SaO2% (BldA) [Mass fraction] 96 % Rodrigo Sepulveda MD Work Phone: [facility] 02-15-2023 13:49-0400 Systolic blood pressure 124 mm[Hg] Rodrigo Sepulveda MD Work Phone: [facility] 02-12-2022 13:46-0400 Body weight 109.32 kg Rodrigo Sepulveda MD Work Phone: [facility] 02-12-2022 13:46-0400 Diastolic blood pressure 60 mm[Hg] Rodrigo Sepulveda MD Work Phone: [facility] 02-12-2022 13:46-0400 Heart rate 63 /min Rodrigo Sepulveda MD Work Phone: [facility] 02-12-2022 13:46-0400 SaO2% (BldA) [Mass fraction] 96 % Rodrigo Sepulveda MD Work Phone: [facility] 02-12-2022 13:46-0400 Systolic blood pressure 112 mm[Hg] Rodrigo Sepulveda MD Work Phone: [facility] 12-25-2021 10:54-0400 Body height 167.[address] Rodrigo Sepulveda Work Phone: [facility] Work Phone: 12-25-2021 10:54-0400 Body weight 106.[address] Rodrigo Sepulveda Work Phone: [facility] Work Phone: 12-25-2021 10:54-0400 Diastolic blood pressure 58 mm[Hg] Dr. Rodrigo Sepulveda Work Phone: [facility] Work Phone: 12-25-2021 10:54-0400 Heart rate 60 /min Dr. Rodrigo Sepulveda Work Phone: [facility] Work Phone: 12-25-2021 10:54-0400 Respiratory rate 18 /min Dr. Rodrigo Sepulveda Work Phone: [facility] Work Phone: 12-25-2021 10:54-0400 Systolic blood pressure 122 mm[Hg] Dr. Rodrigo Sepulveda Work Phone: [facility] Work Phone: 02-27-2021 10:08-0400 Body mass index (BMI) [Ratio] 43.4 kg/m2 Dr. Rodrigo Sepulveda Work Phone: [facility] Work Phone: Encounters Encounter Date Encounter Type Care Provider Facility Start: 02-17-2025 End: 02-17-2025 Office outpatient visit 25 minutes Rodrigo Sepulveda MD Work Phone: [facility] [place] Comment on above: Controlled type 2 di abetes mellitus with microalbuminuria, with long-term current use of insulin (HCC) (Primary Dx); Pure hypercholesterolemia; Vitamin D deficiency; Essential hypertension; Acquired hypothyroidism; Longstanding persistent atrial fibrillation (HCC); Gastroesophageal reflux disease without esophagitis; Hypomagnesemia; Pulmonary hypertension (HCC); Severe obesity (BMI 35.0-39.9) with comorbidity ([facility]) Start: 02-17-2025 End: 02-17-2025 ambulatory RODRIGO SEPULVEDA Facility:[facility] Start: 02-04-2025 End: 02-04-[address] Milton Linton MD -[place] [facility] Work Phone: Start: 02-04-2025 End: 02-04-2025 ambulatory Rodrigo Sepulveda Facility:[facility] [place] [facility] Start: 02-02-2025 End: 02-02-2025 Coordination of care plan Josette Salcedo RN Work Phone: [employer] Comment on above: Care Coordination Start: 02-02-2025 End: 02-02-2025 ambulatory Josette Salcedo RN Work Phone: [employer] Start: 01-29-2025 End: 02-02-2025 Refill Jillian Mojica APRN.CNS Work Phone: [facility] [place] Comment on above: Refill Request Willian kurtz Start: 01-13-2025 End: 01-18-2025 ambulatory Rodrigo Sepulveda MD Work Phone: [facility] [place] Comment on above: Tests for visit Start: 12-18-2024 End: 12-18-2024 Refill Rodrigo Sepulveda MD Work Phone: [facility] [place] Comment on above: Refill Request Start: 12-16-2024 End: 12-16-2024 ambulatory Vik Corey [facility] Work Phone: Pharmacy Medicine Start: 12-16-2024 End: 12-16-2024 Patient encounter procedure Vik Corey [facility] Work Phone: Pharmacy Medicine Comment on above: Care Coordination (P rob Management Review for Pharmacist Referral for Diabetes Management) Start: 12-08-2024 End: 01-08-2025 ambulatory Rodrigo Sepulveda MD Work Phone: [facility] [place] Start: 11-18-2024 End: 11-18-2024 ambulatory Vanessa Geoff Navarro MA [facility] [place] Start: 11-18-2024 End: 11-18-2024 Patient encounter procedure Vanessa Navarro MA [facility] Comment on above: Population Health Na vigation Outreach ([employer] High Risk - Attempt 1 ) February 01 appointment Start: 08-03-2024 End: 08-03-2024 Office outpatient visit 25 minutes Jillianjonathon Mojica APRN.CRECHE ATTENDANT Work Phone: [facility] [place] Comment on above: Type 2 diabetes peace itus with microalbuminuria, with long-term current use of insulin (HCC) (Primary Dx); Essential hypertension; Pure hypercholesterolemia; Gastroesophageal reflux disease without esophagitis; Chronic anticoagulation; Longstanding persistent atrial fibrillation (HCC); Acute cystitis with hematuria; Encounter for immunization; Screening for colon cancer Start: 08-03-2024 End: 08-03-2024 ambulatory JILLIAN MOJICA Facility:[facility] Start: 07-22-2024 End: 07-22-2024 ambulatory RODRIGO SEPULVEDA Facility:[facility] Start: 06-03-2024 End: 06-04-2024 Telephone encounter Rodrigo Sepulveda MD Work Phone: [facility] [place] Comment on above: clarify rx direction s Start: 05-25-2024 End: 05-26-2024 Refill Rodrigo Sepulveda MD Work Phone: [facility] [place] Comment on above: Refill Request Start: 02-11-2024 End: 02-11-2024 ambulatory Evy Pascal NP Facility:[facility] [place] [facility] Start: 01-29-2024 End: 01-29-2024 Patient encounter procedure Rodrigo Sepulveda MD Work Phone: [facility] [place] Comment on above: Medicare annual well ness visit, subsequent (Primary Dx); Controlled type 2 diabetes mellitus with microalbuminuria, with long-term current use of insulin (HCC); Pure hypercholesterolemia; Vitamin D deficiency; Screening for osteoporosis; Asymptomatic menopause; Encounter for immunization Start: 01-22-2024 Refill Benita Beltran PACKING CHECKER.MANAGER HOTEL Work Phone: [facility] [place] Comment on above: Refill Request Start: 01-08-2024 ambulatory Rodrigo carson MD Work Phone: [facility] [place] Start: 12-31-2023 ambulatory Rodrigo carson MD Work Phone: [facility] [place] Comment on above: Lantus Solostar Refill Request Start: 12-26-2023 [facility] Start: 12-26-2023 [facility] Start: 12-24-2023 Telephone encounter Rodrigo frances MD Work Phone: [facility] [place] Comment on above: Orders Start: 12-12-2023 Refill Rodrigo carson MD Work Phone: [facility] [place] Comment on above: Refill Request Start: 12-06-2023 Refill Rodrigo carson MD Work Phone: [facility] [place] Comment on above: Refill Request Start: 10-09-2023 Refill Rodrigo carson MD Work Phone: [facility] [place] Comment on above: Refill Request Start: 10-02-2023 Refill Jillian Yunior SCHMIDT.CRECHE ATTENDANT Work Phone: [facility] [place] Comment on above: Refill Request Start: 07-10-2023 ambulatory Rodrigo carson MD Work Phone: [facility] [place] Comment on above: 2022 flu shot Start: 06-03-2023 Telephone encounter Rodrigo frances MD Work Phone: [facility] [place] Comment on above: Oxygen Order Start: 06-02-2023 ambulatory [facility] [place] Comment on above: Population Health Na vigation Outreach ([employer] Care Gap Outreach/) Start: 03-07-2023 [facility] Get Medical Advice Rodrigo anna MD Work Phone: [facility] [place] Comment on above: Mindi keyesi ll Refill Request Start: 02-15-2023 End: 02-15-2023 Office outpatient visit 25 minutes Rodrigo Sepulveda MD Work Phone: [facility] [place] Comment on above: Type 2 diabetes peace itus with hyperglycemia, with long-term current use of insulin (HCC) (Primary Dx); Essential hypertension; Type 2 diabetes mellitus with microalbuminuria, with long-term current use of insulin (HCC); Pure hypercholesterolemia; Longstanding persistent atrial fibrillation (HCC); Colon cancer screening Start: 01-30-2023 ambulatory Rodrigo carsno MD Work Phone: [facility] [place] Start: 01-08-2023 Refill Jillian Mojica PACKING CHECKER.CRECHE ATTENDANT Work Phone: [facility] [place] Comment on above: Refill Request Start: 11-26-2022 Refill Jillian Mojica PACKING CHECKER.CRECHE ATTENDANT Work Phone: [facility] [place] Comment on above: Refill Request Start: 10-03-2022 ambulatory Ida Felix [facility] [place] Comment on above: Population Health Na vigation Outreach ([employer] care gaps) Start: 09-04-2022 Refill Jillian Mojica PACKING CHECKER.CRECHE ATTENDANT Work Phone: [facility] [place] Comment on above: Refill Request Start: 08-06-2022 ambulatory Jillian Mojica PACKING CHECKER.CRECHE ATTENDANT Work Phone: [facility] [place] Comment on above: Lab work Start: 06-19-2022 ambulatory Vanessa Navarro [facility] [place] Comment on above: Population Health Na vigation Outreach ([employer] Care Gaps ) Start: 06-02-2022 Refill Rodrigo carson MD Work Phone: [facility] [place] Comment on above: Refill Request Start: 03-05-2022 Refill Lesly Pfeiffer PACKING CHECKER .MANAGER HOTEL Work Phone: [facility] [place] Comment on above: Refill Request Start: 02-28-2022 ambulatory Rodrigo carson MD Work Phone: [facility] [place] Start: 02-12-2022 End: 02-12-2022 Office outpatient visit 25 minutes Rodrigo Sepulveda MD Work Phone: [facility] Comment on above: Controlled type 2 di abetes mellitus with microalbuminuria, with long-term current use of insulin (HCC) (Primary Dx); Essential hypertension; Pure hypercholesterolemia; Stasis edema of both lower extremities; Acute on chronic diastolic congestive heart failure (HCC); Elevated TSH Start: 01-25-2022 Refill Jillian Mojica APRNSantaCRECHE ATTENDANT Work Phone: [facility] Comment on above: Refill Request Start: 01-23-2022 End: 01-23-[address] Rodrigo Sepulveda Work Phone: [facility]-Pulmonary Services/Neurology Start: 12-25-2021 End: 12-25-[address] Rodrigo Sepulveda Work Phone: [facility] Start: 11-23-2021 ambulatory Maggy Fritz MA [facility] Comment on above: Population Health Na vigation Outreach (Care gap) Procedures Date Procedure Procedure Detail Performing Clinician Start: 01-29-2024 Adult depression scr eening assessment Rodrigo Sepulveda MD Work Phone: Start: 02-12-2022 Adult depression scr eening assessment Rodrigo Sepulveda MD Work Phone: Start: 12-21-2020 Adult depression scr eening assessment Maggy Fritz MA Start: 07-27-2015 Mammography Maggy siegel MA Plan of Treatment Date Care Activity Detail Author Start: 02-17-2026 Annual PCP Team Chronic Disease Visit Annual PCP Team Chronic Disease Visit [facility] Start: 02-02-2026 Hepatitis B screening Urine Albumin:Creatinine Ratio [facility] Start: 02-02-2026 Hepatitis B surface antibody level LDL Cholesterol [facility] Start: 01-21-2026 End: 01-21-2026 Patient encounter procedure 01/21/2026 11:00 AM EDT Office Visit [facility] [place] [address] [place] [address] Rodrgio Sepulveda MD [address] [facility] [place], [place] [id number] 6 month follow u [facility] [place] Comment on above: 6 month follow [facility] Start: 08-03-2025 BP Controlled (<130/80) BP Controlled (<130/80) [facility] Start: 07-22-2025 Hepatitis B screening Urine Albumin:Creatinine Ratio [facility] Start: 07-22-2025 Hepatitis B surface antibody level LDL Cholesterol [facility] Start: 07-20-2025 End: 07-20-2025 Patient encounter procedure 07/20/2025 11:00 AM EST Office Visit [facility] [place] [address] [place] [address] Jillian Mojica APRN.CRECHE ATTENDANT [address] [facility] [place], [place] [id number] medicare wellness and follow up per [facility] [place] Comment on above: medicare wellness and follow up per Opal pal Start: 07-03-2025 End: 10-02-2025 25-hydroxyvitamin D3 [Mass/volume] in Serum or Plasma VITAMIN D 25 HYDROXY Lab Routine Vitamin D deficiency Expected: 07/03/2025 (Approximate), Expires: 10/02/2025 [facility] Comment on above: Expected: 07/03/2025 (Approximate), Expi res: 10/02/2025 Start: 07-03-2025 End: 10-02-2025 CBC panel - Blood by Automated count COMPLETE BLOOD COUNT Lab Routine Controlled type 2 diabetes mellitus with microalbuminuria, with long-term current use of insulin (HCC) Expected: 07/03/2025 (Approximate), Expires: 10/02/2025 [facility] Comment on above: Expected: 07/03/2025 (Approximate), Expi res: 10/02/2025 Start: 07-03-2025 End: 10-02-2025 Comprehensive metabolic 2000 panel - Serum or Plasma COMPREHENSIVE METABOLIC PANEL Lab Routine Controlled type 2 diabetes mellitus with microalbuminuria, with long-term current use of insulin (HCC) Expected: 07/03/2025 (Approximate), Expires: 10/02/2025 [facility] Comment on above: Expected: 07/03/2025 (Approximate), Expi res: 10/02/2025 Start: 07-03-2025 End: 10-02-2025 Hemoglobin A1c in Blood HEMOGLOBIN A1C Lab Routine Controlled type 2 diabetes mellitus with microalbuminuria, with long-term current use of insulin (HCC) Expected: 07/03/2025 (Approximate), Expires: 10/02/2025 [facility] Comment on above: Expected: 07/03/2025 (Approximate), Expi res: 10/02/2025 Start: 07-03-2025 End: 10-02-2025 Lipid 1996 panel - Serum or Plasma LIPID PANEL, FASTING Lab Routine Controlled type 2 diabetes mellitus with microalbuminuria, with long-term current use of insulin (HCC) Pure hypercholesterolemia Expected: 07/03/2025 (Approximate), Expires: 10/02/2025 [facility] Comment on above: Expected: 07/03/2025 (Approximate), Expi res: 10/02/2025 Start: 07-03-2025 End: 10-02-2025 Magnesium [Mass/volume] in Serum or Plasma MAGNESIUM Lab Routine Controlled type 2 diabetes mellitus with microalbuminuria, with long-term current use of insulin (HCC) Hypomagnesemia Expected: 07/03/2025 (Approximate), Expires: 10/02/2025 [facility] Comment on above: Expected: 07/03/2025 (Approximate), Expi res: 10/02/2025 Start: 07-03-2025 End: 10-02-2025 Microalbumin/Creatinin e [Mass Ratio] in Urine ALBUMIN/CREATININE RATIO, URINE Lab Routine Controlled type 2 diabetes mellitus with microalbuminuria, with long-term current use of insulin (HCC) Expected: 07/03/2025 (Approximate), Expires: 10/02/2025 [facility] Comment on above: Expected: 07/03/2025 (Approximate), Expi res: 10/02/2025 Start: 05-05-2025 Hemoglobin A1c measurement HbA1C [facility] Start: 05-03-2025 Influenza vaccination Influenza Vaccine (#1) [facility] Start: 04-19-2025 End: 07-19-2025 Magnesium [Mass/volume] in Serum or Plasma MAGNESIUM Lab Routine Hypomagnesemia Expected: 04/19/2025 (Approximate), Expires: 07/19/2025 [facility] Comment on above: Expected: 04/19/2025 (Approximate), Expi res: 07/19/2025 Start: 03-10-2025 Glaucoma screening Dilated Retinal Exam [facility] Start: 02-17-2025 End: 02-17-2025 Patient encounter procedure [facility] Comment on above: 6 month follow up / Review HM Due - UACR /CMP due to satisfy KED metric for 2024, Mammogram, Colorectal Cancer screen, Diabetic Eye exam and 2024 MWE - please assist in scheduling 6 month follow up Start: 02-09-2025 Shingrix Vaccine (2 of 2) Shingrix Vaccine (2 of 2) [facility] Start: 02-01-2025 End: 02-01-2025 Patient encounter procedure 02/01/2025 1:40 PM EDT Office Visit [facility] [address] [place] [address] Rodrigo Sepulveda MD [address] [place], [place] [id number] 6 month follow up [facility] Comment on above: 6 month follow up Start: 01-28-2025 Annual PCP Team Chronic Disease Visit Annual PCP Team Chronic Disease Visit [facility] Start: 01-28-2025 Anxiety Screening Anxiety Screening [facility] Start: 01-28-2025 BP Controlled (<130/80) BP Controlled (<130/80) [facility] Start: 01-28-2025 Depression Screening Depression Screening [facility] Start: 01-23-2025 Hepatitis B screening Urine Albumin:Creatinine Ratio [facility] Start: 01-23-2025 Hepatitis B surface antibody level LDL Cholesterol [facility] Start: 01-15-2025 End: 04-16-2025 25-hydroxyvitamin D3 [Mass/volume] in Serum or Plasma VITAMIN D 25 HYDROXY Lab Routine Vitamin D deficiency Expected: 01/15/2025 (Approximate), Expires: 04/16/2025 [facility] Comment on above: Expected: 01/15/2025 (Approximate), Expi res: 04/16/2025 Start: 01-15-2025 End: 04-16-2025 CBC W Auto Differential panel - Blood COMPLETE BLOOD COUNT AND DIFFERENTIAL Lab Routine Essential hypertension Expected: 01/15/2025 (Approximate), Expires: 04/16/2025 [facility] Comment on above: Expected: 01/15/2025 (Approximate), Expi res: 04/16/2025 Start: 01-15-2025 End: 04-16-2025 Comprehensive metabolic 2000 panel - Serum or Plasma COMPREHENSIVE METABOLIC PANEL Lab Routine Type 2 diabetes mellitus with microalbuminuria, with long-term current use of insulin (HCC) Expected: 01/15/2025 (Approximate), Expires: 04/16/2025 [facility] Comment on above: Expected: 01/15/2025 (Approximate), Expi res: 04/16/2025 Start: 01-15-2025 End: 04-16-2025 Hemoglobin A1c in Blood HEMOGLOBIN A1C Lab Routine Type 2 diabetes mellitus with microalbuminuria, with long-term current use of insulin (HCC) Expected: 01/15/2025 (Approximate), Expires: 04/16/2025 [facility] Comment on above: Expected: 01/15/2025 (Approximate), Expi res: 04/16/2025 Start: 01-15-2025 End: 04-16-2025 Lipid 1996 panel - Serum or Plasma LIPID PANEL, FASTING Lab Routine Pure hypercholesterolemia Expected: 01/15/2025 (Approximate), Expires: 04/16/2025 [facility] Comment on above: Expected: 01/15/2025 (Approximate), Expi res: 04/16/2025 Start: 01-15-2025 End: 04-16-2025 Magnesium [Mass/volume] in Serum or Plasma MAGNESIUM Lab Routine Essential hypertension Encounter for long-term current use of medication Expected: 01/15/2025 (Approximate), Expires: 04/16/2025 [facility] Comment on above: Expected: 01/15/2025 (Approximate), Expi res: 04/16/2025 Start: 01-15-2025 End: 04-16-2025 Microalbumin/Creatinin e [Mass Ratio] in Urine ALBUMIN/CREATININE RATIO, URINE Lab Routine Type 2 diabetes mellitus with microalbuminuria, with long-term current use of insulin (HCC) Expected: 01/15/2025 (Approximate), Expires: 04/16/2025 [facility] Comment on above: Expected: 01/15/2025 (Approximate), Expi res: 04/16/2025 Start: 01-15-2025 End: 04-16-2025 Thyrotropin [Units/volume] in Serum or Plasma THYROID STIMULATING HORMONE Lab Routine Elevated TSH Expected: 01/15/2025 (Approximate), Expires: 04/16/2025 [facility] Work Phone: Comment on above: Expected: 01/15/2025 (Approximate), Expi res: 04/16/2025 Start: 10-22-2024 Hemoglobin A1c measurement HbA1C [facility] Start: 09-03-2024 End: 12-03-2024 Urinalysis complete panel - Urine URINALYSIS WITH MICROSCOPIC, REFLEX CULTURE Lab Routine Acute cystitis with hematuria Expected: 09/03/2024 (Approximate), Expires: 12/03/2024 [facility] Comment on above: Expected: 09/03/2024 (Approximate), Expi res: 12/03/2024 Start: 09-02-2024 Advance Directive Discussion Advance Directive Discussion [facility] Start: 09-02-2024 Diabetic foot examination Diabetic Foot Exam [facility] Comment on above: Postponed from 08/14/2023 (Declined at t his time) Start: 09-02-2024 Medicare Advantage Annual Wellness Visit Medicare Advantage Annual Wellness Visit [facility] Start: 08-03-2024 End: 08-03-2024 Patient encounter procedure [facility] Comment on above: 6 month follow up 6 month follow up Sh ingrix Vaccine Start: 06-18-2024 Glaucoma screening Dilated Retinal Exam [facility] Start: 06-18-2024 Hepatitis C antibody, confirmatory test Dilated Retinal Exam [facility] Start: 05-11-2024 End: 05-11-2024 Patient encounter procedure 05/11/2024 2:15 PM EDT Appointment Radiology [address] [place] [id number] Screening for osteoporosis [Z13.820] [facility]iology Comment on above: Screening for osteoporosis [Z13.820] Start: 05-03-2024 Influenza vaccination Influenza Vaccine (#1) [facility] Start: 04-25-2024 Hemoglobin A1c measurement HbA1C [facility] Start: 02-16-2024 ANNUAL PCP TEAM CHRONIC DISEASE VISIT ANNUAL PCP TEAM CHRONIC DISEASE VISIT [facility] Start: 02-16-2024 BP CONTROLLED (<130/80) BP CONTROLLED (<130/80) [facility] Start: 02-16-2024 SHINGRIX VACCINE (1 of 2) SHINGRIX VACCINE (1 of 2) [facility] Comment on above: Postponed from 2003 (Declined at t his time) Start: 02-16-2024 Urine microalbumin profile [facility] Comment on above: Postponed from 07/13/2020 (Declined at t his time) Start: 02-12-2024 Hepatitis B surface antibody level LDL CHOLESTEROL [facility] Start: 01-29-2024 End: 01-29-2024 Patient encounter procedure 01/29/2024 2:00 PM EDT Office Visit [facility] [place] [address] [place], [place] [id number] Rodrigo Sepulveda MD [address] [place] [address] Routine visit [facility] [place] Comment on above: Routine visit Start: 09-02-2023 Advance Directive Discussion Advance Directive Discussion [facility] Start: 09-02-2023 Behavioral Health Screening Behavioral Health Screening [facility] Start: 09-02-2023 Depression Assessment Depression Assessment [facility] Start: 08-17-2023 End: 10-17-2023 ALBUMIN/CREAT RATIO RND UR ALBUMIN/CREAT RATIO RND UR Lab Routine Type 2 diabetes mellitus with microalbuminuria, with long-term current use of insulin (HCC) Expected: 08/17/2023 (Approximate), Expires: 10/17/2023 [facility] Work Phone: Comment on above: Expected: 08/17/2023 (Approximate), Expi res: 10/17/2023 Start: 08-17-2023 End: 10-17-2023 CBC panel - Blood by Automated count CBC Lab Routine Essential hypertension Expected: 08/17/2023 (Approximate), Expires: 10/17/2023 [facility] Work Phone: Comment on above: Expected: 08/17/2023 (Approximate), Expi res: 10/17/2023 Start: 08-17-2023 End: 10-17-2023 Comprehensive metabolic 2000 panel - Serum or Plasma COMP METABOLIC PANEL Lab Routine Type 2 diabetes mellitus with microalbuminuria, with long-term current use of insulin (HCC) Type 2 diabetes mellitus with hyperglycemia, with long-term current use of insulin (HCC) Essential hypertension Expected: 08/17/2023 (Approximate), Expires: 10/17/2023 [facility] Work Phone: Comment on above: Expected: 08/17/2023 (Approximate), Expi res: 10/17/2023 Start: 08-17-2023 End: 10-17-2023 Hemoglobin A1c in Blood HGB A1C Lab Routine Type 2 diabetes mellitus with microalbuminuria, with long-term current use of insulin (HCC) Type 2 diabetes mellitus with hyperglycemia, with long-term current use of insulin (HCC) Expected: 08/17/2023 (Approximate), Expires: 10/17/2023 [facility] Work Phone: Comment on above: Expected: 08/17/2023 (Approximate), Expi res: 10/17/2023 Start: 08-17-2023 End: 10-17-2023 Lipid 1996 panel - Serum or Plasma LIPID PANEL BASIC Lab Routine Pure hypercholesterolemia Expected: 08/17/2023 (Approximate), Expires: 10/17/2023 [facility] Work Phone: Comment on above: Expected: 08/17/2023 (Approximate), Expi res: 10/17/2023 Start: 08-14-2023 3 comp foot exam completed DIABETIC FOOT EXAM [facility] Start: 08-14-2023 BONE DENSITY BONE DENSITY [facility] Comment on above: Postponed from 2018 (Declined at t his time) Start: 08-14-2023 Bone Density Screening Bone Density Screening [facility] Comment on above: Postponed from 2018 (Declined at t his time) Start: 08-14-2023 Diabetic foot examination Diabetic Foot Exam [facility] Start: 08-08-2023 Hepatitis B screening URINE ALBUMIN:CREATININE RATIO [facility] Start: 05-14-2023 Hemoglobin A1c measurement HbA1C [facility] Start: 05-14-2023 Hemoglobin A1c/Hemoglobin.total in Blood HBA1C [facility] Start: 05-03-2023 Covid-19 Vaccine () Covid-19 Vaccine () [facility] Start: 05-03-2023 Influenza vaccination [facility] Start: 02-12-2023 Adult depression screening assessment DEPRESSION SCREENING [facility] Start: 02-12-2023 ANNUAL PCP TEAM CHRONIC DISEASE VISIT ANNUAL PCP TEAM CHRONIC DISEASE VISIT [facility] Start: 02-12-2023 BP CONTROLLED (<130/80) BP CONTROLLED (<130/80) [facility] Start: 02-07-2023 Hepatitis B screening URINE ALBUMIN:CREATININE RATIO [facility] Start: 02-07-2023 Hepatitis B surface antibody level LDL CHOLESTEROL [facility] Start: 02-06-2023 Hemoglobin A1c/Hemoglobin.total in Blood HBA1C [facility] Start: 12-13-2022 COVID-19 VACCINE (3 - Mixed Product series) COVID-19 VACCINE (3 - Mixed Product series) [facility] Start: 10-09-2022 COVID-19 VACCINE (3 - Booster) COVID-19 VACCINE (3 - Booster) [facility] Start: 09-02-2022 ADVANCE DIRECTIVE DISCUSSION ADVANCE DIRECTIVE DISCUSSION [facility] Start: 09-02-2022 DEPRESSION ASSESSMENT DEPRESSION ASSESSMENT [facility] Start: 08-14-2022 End: 10-14-2022 ALBUMIN/CREAT RATIO RND UR ALBUMIN/CREAT RATIO RND UR Lab Routine Controlled type 2 diabetes mellitus with microalbuminuria, with long-term current use of insulin (HCC) Expected: 08/14/2022 (Approximate), Expires: 10/14/2022 [facility] Work Phone: Comment on above: Expected: 08/14/2022 (Approximate), Expi res: 10/14/2022 Start: 08-14-2022 End: 10-14-2022 CBC panel - Blood by Automated count CBC Lab Routine Controlled type 2 diabetes mellitus with microalbuminuria, with long-term current use of insulin (HCC) Essential hypertension Expected: 08/14/2022 (Approximate), Expires: 10/14/2022 [facility] Work Phone: Comment on above: Expected: 08/14/2022 (Approximate), Expi res: 10/14/2022 Start: 08-14-2022 End: 10-14-2022 Comprehensive metabolic 2000 panel - Serum or Plasma COMP METABOLIC PANEL Lab Routine Controlled type 2 diabetes mellitus with microalbuminuria, with long-term current use of insulin (HCC) Essential hypertension Expected: 08/14/2022 (Approximate), Expires: 10/14/2022 [facility] Work Phone: Comment on above: Expected: 08/14/2022 (Approximate), Expi res: 10/14/2022 Start: 08-14-2022 End: 10-14-2022 Hemoglobin A1c in Blood HGB A1C Lab Routine Elevated TSH Expected: 08/14/2022 (Approximate), Expires: 10/14/2022 [facility] Work Phone: Comment on above: Expected: 08/14/2022 (Approximate), Expi res: 10/14/2022 Start: 08-14-2022 End: 10-14-2022 Thyrotropin [Units/volume] in Serum or Plasma TSH BLD Lab Routine Elevated TSH Expected: 08/14/2022 (Approximate), Expires: 10/14/2022 [facility] Work Phone: Comment on above: Expected: 08/14/2022 (Approximate), Expi res: 10/14/2022 Start: 08-14-2022 End: 10-14-2022 Thyroxine (T4) free [Mass/volume] in Serum or Plasma T4 FREE/FREE THYROX Lab Routine Elevated TSH Expected: 08/14/2022 (Approximate), Expires: 10/14/2022 [facility] Work Phone: Comment on above: Expected: 08/14/2022 (Approximate), Expi res: 10/14/2022 Start: 07-10-2022 ANNUAL PCP TEAM CHRONIC DISEASE VISIT ANNUAL PCP TEAM CHRONIC DISEASE VISIT [facility] Start: 07-10-2022 BP CONTROLLED (<130/80) BP CONTROLLED (<130/80) [facility] Start: 07-10-2022 SHINGRIX VACCINE (1 of 2) SHINGRIX VACCINE (1 of 2) [facility] Comment on above: Postponed from 2003 (Declined at t his time) Start: 07-10-2022 Urine microalbumin profile DTAP,TDAP,TD (2 - Td or Tdap) [facility] Comment on above: Postponed from 07/13/2020 (Declined at t his time) Start: 06-26-2022 COLORECTAL CANCER SCREENING COLORECTAL CANCER SCREENING [facility] Start: 06-26-2022 FECAL OCCULT BLOOD FECAL OCCULT BLOOD [facility] Start: 06-26-2022 Hepatitis B screening URINE ALBUMIN:CREATININE RATIO [facility] Start: 06-26-2022 Screening for malignant neoplasm of colon [facility] Start: 05-10-2022 Hemoglobin A1c/Hemoglobin.total in Blood HBA1C [facility] Start: 05-03-2022 Influenza vaccination INFLUENZA (#1) [facility] Start: 04-16-2022 Hepatitis C antibody, confirmatory test DILATED RETINAL EXAM [facility] Start: 01-07-2022 3 comp foot exam completed DIABETIC FOOT EXAM [facility] Comment on above: Postponed from 04/27/2020 (Declined at t his time) Start: 12-25-2021 Hemoglobin A1c/Hemoglobin.total in Blood HBA1C [facility] Start: 12-21-2021 Adult depression screening assessment DEPRESSION SCREENING [facility] Start: 12-16-2021 Hepatitis B surface antibody level LDL CHOLESTEROL [facility] Start: 09-02-2021 ADVANCE DIRECTIVE DISCUSSION ADVANCE DIRECTIVE DISCUSSION [facility] Start: 09-02-2021 DEPRESSION ASSESSMENT DEPRESSION ASSESSMENT [facility] Start: 01-05-2021 COVID-19 VACCINE (2 - Moderna 3-dose series) COVID-19 VACCINE (2 - Moderna 3-dose series) [facility] Start: 01-05-2021 COVID-19 VACCINE (2 - Moderna series) COVID-19 VACCINE (2 - Moderna series) [facility] Start: 11-05-2020 BP CONTROLLED (<130/80) BP CONTROLLED (<130/80) [facility] Start: 07-13-2020 Urine microalbumin profile [facility] Start: 04-27-2020 3 comp foot exam completed DIABETIC FOOT EXAM [facility] Start: 2018 BONE DENSITY BONE DENSITY [facility] Start: 2018 Screening for osteoporosis Bone Density Screening [facility] Start: 07-27-2016 Mammography [facility] Start: 07-27-2016 Screening for malignant neoplasm of breast Mammogram Screening [facility] Start: 2013 Hepatitis B Vaccine (1 of 3 - Risk 3-dose series) Hepatitis B Vaccine (1 of 3 - Risk 3-dose series) [facility] Start: 2013 RSV Vaccine (1 - 1-dose 60+ series) RSV Vaccine (1 - 1-dose 60+ series) [facility] Start: 2013 RSV Vaccine (1 - Risk 60-74 years 1-dose series) RSV Vaccine (1 - Risk 60-74 years 1-dose series) [facility] Start: 2003 SHINGRIX VACCINE (1 of 2) SHINGRIX VACCINE (1 of 2) [facility] Start: 1998 COLOGUARD (FIT-DNA) COLOGUARD (FIT-DNA) [facility] Start: 1998 Colonoscopy COLONOSCOPY [facility] Start: [address] COLONOGRAPHY [facility] Start: 1998 Screening for malignant neoplasm of colon [facility] Start: 1998 SIGMOIDOSCOPY SIGMOIDOSCOPY [facility] Start: 1959 PNEUMOCOCCAL: 65+ (1 - PCV) PNEUMOCOCCAL: 65+ (1 - PCV) [facility] End: 12-26-2024 25-hydroxyvitamin D3 [Mass/volume] in Serum or Plasma VITAMIN D 25 HYDROXY Lab Routine Type 2 diabetes mellitus with hyperglycemia, with long-term current use of insulin (HCC) Encounter for long-term current use of medication Vitamin D deficiency Every 6 months for 20 Occurrences starting 12/27/2023 until 12/26/2024 [facility] Comment on above: Every 6 months for 20 Occurrences starti ng 12/27/2023 until 12/26/2024 End: 02-27-2025 BD DXA TRABECULAR BONE SCORE (TBS) BD DXA TRABECULAR BONE SCORE (TBS) Radiology Routine Screening for osteoporosis Asymptomatic menopause 1 Occurrences starting 01/29/2024 until 02/27/2025 [facility] Comment on above: 1 Occurrences starting 01/29/2024 until 02/27/2025 End: 12-26-2024 CBC panel - Blood by Automated count COMPLETE BLOOD COUNT Lab Routine Type 2 diabetes mellitus with hyperglycemia, with long-term current use of insulin (HCC) Essential hypertension Encounter for long-term current use of medication Every 6 months for 20 Occurrences starting 12/27/2023 until 12/26/2024 [facility] Comment on above: Every 6 months for 20 Occurrences starti ng 12/27/2023 until 12/26/2024 End: 12-26-2024 Comprehensive metabolic 2000 panel - Serum or Plasma COMPREHENSIVE METABOLIC PANEL Lab Routine Type 2 diabetes mellitus with hyperglycemia, with long-term current use of insulin (HCC) Essential hypertension Encounter for long-term current use of medication Every 6 months for 20 Occurrences starting 12/27/2023 until 12/26/2024 [facility] Comment on above: Every 6 months for 20 Occurrences starti ng 12/27/2023 until 12/26/2024 End: 01-07-2026 DBT Breast - bilateral screening JEWELL SCREENING W TITI Radiology Routine Encounter for screening mammogram for breast cancer 1 Occurrences starting 12/08/2024 until 01/07/2026 [facility] Work Phone: Comment on above: 1 Occurrences starting 12/08/2024 until 01/07/2026 End: 02-27-2025 DXA Skeletal system.axial Views for bone density DXA-AXIAL SKELETON Radiology Routine Screening for osteoporosis Asymptomatic menopause 1 Occurrences starting 01/29/2024 until 02/27/2025 [facility] Work Phone: Comment on above: 1 Occurrences starting 01/29/2024 until 02/27/2025 End: 12-26-2024 Hemoglobin A1c in Blood HEMOGLOBIN A1C Lab Routine Type 2 diabetes mellitus with hyperglycemia, with long-term current use of insulin (HCC) Encounter for long-term current use of medication Every 6 months for 20 Occurrences starting 12/27/2023 until 12/26/2024 [facility] Work Phone: Comment on above: Every 6 months for 20 Occurrences starti ng 12/27/2023 until 12/26/2024 Hemoglobin.gastroint es tinal.lower [Presence] in Stool by Immunoassay FECAL OCCULT BLOOD TEST Lab Routine Colon cancer screening Ordered: 02/15/2023 [facility] Work Phone: Comment on above: Ordered: 02/15/2023 Hemoglobin.gastroint es tinal.lower [Presence] in Stool by Immunoassay IMMUNOCHEMICAL FECAL OCCULT BLOOD TEST Lab Routine Screening for colon cancer Ordered: 08/03/2024 [facility] Work Phone: Comment on above: Ordered: 08/03/2024 End: 12-26-2024 Lipid 1996 panel - Serum or Plasma LIPID PANEL BASIC Lab Routine Type 2 diabetes mellitus with hyperglycemia, with long-term current use of insulin ([facility]) Pure hypercholesterolemia Essential hypertension Encounter for long-term current use of medication Every 6 months for 20 Occurrences starting 12/27/2023 until 12/26/2024 [facility] Comment on above: Every 6 months for 20 Occurrences starti ng 12/27/2023 until 12/26/2024 End: 12-26-2024 Magnesium [Mass/volume] in Serum or Plasma MAGNESIUM Lab Routine Encounter for long-term current use of medication Every 6 months for 30 Occurrences starting 12/27/2023 until 12/26/2024 [facility] Comment on above: Every 6 months for 30 Occurrences starti ng 12/27/2023 until 12/26/2024 End: 02-29-2024 JEWELL SCREENING JEWELL SCREENING Radiology Routine Encounter for screening mammogram for breast cancer 1 Occurrences starting 01/30/2023 until 02/29/2024 [facility] Work Phone: Comment on above: 1 Occurrences starting 01/30/2023 until 02/29/2024 End: 02-06-2025 MG Breast Screening JEWELL SCREENING Radiology Routine Encounter for screening mammogram for breast cancer 1 Occurrences starting 01/08/2024 until 02/06/2025 [facility] Work Phone: Comment on above: 1 Occurrences starting 01/08/2024 until 02/06/2025 End: 12-26-2024 Microalbumin/Creatinin e [Mass Ratio] in Urine ALBUMIN/CREATININE RATIO, URINE Lab Routine Type 2 diabetes mellitus with hyperglycemia, with long-term current use of insulin (HCC) Encounter for long-term current use of medication Positive for macroalbuminuria Every 6 months for 20 Occurrences starting 12/27/2023 until 12/26/2024 [facility] Comment on above: Every 6 months for 20 Occurrences starti ng 12/27/2023 until 12/26/2024 End: 03-30-2023 Screening mammography bi 2-view breast inc cad [facility] SCREENING Radiology Routine Encounter for screening mammogram for breast cancer 1 Occurrences starting 02/28/2022 until 03/30/2023 [facility] Work Phone: Comment on above: 1 Occurrences starting 02/28/2022 until 03/30/2023 End: 12-26-2024 Thyrotropin [Units/volume] in Serum or Plasma THYROID STIMULATING HORMONE Lab Routine Pure hypercholesterolemia Essential hypertension Elevated TSH Every 6 months for 30 Occurrences starting 12/27/2023 until 12/26/2024 [facility] Comment on above: Every 6 months for 30 Occurrences starti ng 12/27/2023 until 12/26/2024 End: 02-17-2026 Thyrotropin [Units/volume] in Serum or Plasma THYROID STIMULATING HORMONE Lab Routine Acquired hypothyroidism Every 2 months for 60 Occurrences starting 02/17/2025 until 02/17/2026 [facility] Work Phone: Comment on above: Every 2 months for 60 Occurrences starti ng 02/17/2025 until 02/17/2026 End: 02-17-2026 Thyroxine (T4) free [Mass/volume] in Serum or Plasma T4 FREE/FREE THYROXINE Lab Routine Acquired hypothyroidism Every 2 months for 60 Occurrences starting 02/17/2025 until 02/17/2026 [facility] Comment on above: Every 2 months for 60 Occurrences starti ng 02/17/2025 until 02/17/2026 End: 12-26-2024 Urinalysis complete panel - Urine URINALYSIS, WITH MICROSCOPIC Lab Routine Positive for macroalbuminuria Every 6 months for 20 Occurrences starting 12/27/2023 until 12/26/2024 [facility] Comment on above: Every 6 months for 20 Occurrences starti ng 12/27/2023 until 12/26/2024 [facility] Immunizations Immunization Date Immunization Notes Care Provider Nallely bingham 12-15-2024 zoster vaccine recombinant Rodrigo eSpulveda MD Work Phone: [facility] 08-03-2024 influenza, high dose seasonal, preservative-free Jillian Mojica PACKING CHECKER.CRECHE ATTENDANT Work Phone: [facility] 08-03-2024 influenza virus vacc ine, unspecified formulation Rodrigo Sepulveda MD Work Phone: [facility] 07-04-2023 influenza (HD-IIV4) vaccine, age 65+ yr, high dose, quadrivalent, PF (FLUZONE HIGH-DOSE) Rodrigo Sepulveda MD Work Phone: [facility] 07-04-2023 influenza virus vacc ine, unspecified formulation Rodrigo Sepulveda MD Work Phone: [facility] 08-14-2022 COVID-19 booster vaccine, age 12+ yr, bivalent (PFIZER-PingupNTSEVENROOMS) Jillian Mojica APRN.CRECHE ATTENDANT Work Phone: [facility] Work Phone: 08-14-2022 influenza, high-dose , quadrivalent vaccine (FLUZONE HIGH DOSE QUADRIVALENT) Jillian Mojica PACKING CHECKER.[facility] Work Phone: [facility] Work Phone: 08-14-2022 influenza virus vacc ine, unspecified formulation Jessica Barajas [facility] 05-19-2021 influenza, high-dose , quadrivalent vaccine (FLUZONE HIGH DOSE QUADRIVALENT) Maggy Fritz [facility] Work Phone: 12-08-2020 Covid (Moderna) Dr. Rodrigo frances Work Phone: [facility] 05-26-2020 pneumococcal polysaccharide vaccine, 23 valent Maggy Fritz [facility] Work Phone: 05-22-2020 influenza, high dose seasonal, preservative-free Maggy Fritz [facility] 05-22-2020 influenza, high-dose , quadrivalent vaccine (FLUZONE HIGH DOSE QUADRIVALENT) Maggy Fritz [facility] Work Phone: 05-03-[address] Rodrigo Sepulveda Work Phone: [facility] 05-03-2020 influenza, seasonal, injectable, preservative free Maggy Fritz [facility] Work Phone: 08-03-2019 influenza, high dose seasonal, preservative-free Maggy Fritz [facility] Work Phone: 04-27-2019 pneumococcal conjuga te vaccine, 13 valent Maggy Fritz [facility] 05-16-2018 influenza, high dose seasonal, preservative-free Maggy Fritz [facility] 06-30-2014 influenza, seasonal, injectable Maggy Fritz [facility] 06-29-2013 influenza virus vacc ine, unspecified formulation Maggy Fritz [facility] 06-21-2012 influenza virus vacc ine, unspecified formulation Maggy Fritz [facility] 05-04-2011 pneumococcal polysaccharide vaccine, 23 valent Maggy Fritz [facility] 07-13-2010 tetanus toxoid, redu martita diphtheria toxoid, and acellular pertussis vaccine, adsorbed Maggy Fritz [facility] Work Phone: Payers Date Payer Category Payer Self-pay [id number] 2021 Medicare HUMANA MEDICARE HUMANA GOLD PLUS [id number] 2021- [phone] [place], [place] [address] [facility] [id number] 2021 Medicare HUMANA MEDICARE HUMANA GOLD PLUS [id number] 2021-Present [phone] [place] [id number] [facility] [place] [id number] 2021 Medicare (Managed Care) HUMANA G OLD PLUS [id number] 2021 Private Health Insurance [id number] Private Health Insurance [id number] Unknown [id number] Unknown [id number] Social History Date Type Detail Facility Start: 03-03-2012 End: 07-09-2023 Tobacco smoking status NHIS Never smoked tobacco [facility] Start: 05-19-2021 End: 02-17-2025 Alcohol intake Current non-drinker of alcohol (finding) [facility] Start: 01-20-2020 End: 08-07-2022 History SDOH Alcohol Frequency 1 [facility] Start: 01-20-2020 History SDOH Alcohol Std Drinks 98 [facility] Start: 01-20-2020 History SDOH Social Connections Phone 5 [facility] Start: 01-20-2020 History SDOH Social Connections Get Together 3 [facility] Start: 01-20-2020 End: 08-07-2022 History SDOH Social Connections Membership 2 [facility] Start: 01-20-2020 End: 02-27-2020 History SDOH Social Connections Living 4 [facility] Start: 01-20-2020 End: 08-07-2022 History SDOH Physical Activity DPW 0 [facility] Start: 01-20-2020 Education 16 [facility] Start: 1955 Sex Assigned At Female [facility] Start: 12-25-2021 Tobacco smoking status NHIS Unknown if ever smoked [facility] Work Phone: Start: 02-02-2022 End: 02-12-2022 Exposure to SARS-CoV-2 (event) Not sure [facility] Start: 03-03-2012 Tobacco use and exposure Smokeless tobacco non-user [facility] Start: 08-07-2022 End: 02-15-2023 History of Social function [facility] Start: 08-07-2022 End: 02-15-2023 Social connection and isolation panel [facility] Do you belong to any clubs or organizations such as sabianism groups, unions, fraternal or athletic groups, or school groups? No [facility] Are you now , , , , never or living with a partner? [facility] How often to you hav e a drink containing alcohol? Never [facility] How many standard dr inks containing alcohol do you have on a typical day? Patient does not drink [facility] Do you feel stress - tense, restless, nervous, or anxious, or unable to sleep at night because your mind is troubled all the time - these days [OSQ] Not at all [facility] (I/We) worried wheth er (my/our) food would run out before (I/we) got money to buy more. Never true [facility] Start: 04-26-2019 Gender identity Identifies as female gender (finding) [facility] Start: 04-26-2019 Sexual orientation Heterosexual (finding) [facility] How hard is it for y ou to pay for the very basics like food, housing, medical care, and heating Not very hard [facility] Work Phone: Do you feel stress - tense, restless, nervous, or anxious, or unable to sleep at night because your mind is troubled all the time - these days [OSQ] Only a little [facility] How hard is it for y ou to pay for the very basics like food, housing, medical care, and heating Somewhat hard [facility] (I/We) worried wheth er (my/our) food would run out before (I/we) got money to buy more. Sometimes true [facility] Medical Equipment Procedure Code Equipment Code Equipment Original Text Equipment Identifier Dates [id number], [id number], [id number], [id number] Start: 01-28-2020 End: 05-25-2024 Comment on above: Use as instructed FO R TESTING twice daily. Dx: E11.65, Z79.4, Insulin: YES Use 1 new pen needle with each injection of insulin. 1 daily. Diagnosis: (E11.65, Z79.4) Test blood sugar(s) 2 times daily. Dx: Type 2 DM - Uncontrolled E11.65 Insulin: Yes Functional Status Date Assessment Result Facility 12-22-2014 Are you deaf, or do you have serious difficulty hearing No 12/22/2014 5:18 PM EDT Betty AlbertoBrenda No [facility] 12-22-2014 Are you blind, or do you have serious difficulty seeing, even when wearing glasses No 12/22/2014 5:18 PM EDT Betty AlbertoBrenda Violet No [facility] 12-22-2014 Do you have serious difficulty walking or climbing stairs No 12/22/2014 5:18 PM EDT Betty AlbertoJanaBrenda Violet No [facility] 12-22-2014 Do you have difficul ty dressing or bathing No 12/22/2014 5:18 PM EDT Betty AlbertoBrenda No [facility] 12-22-2014 Because of a physica l, mental, or emotional condition, do you have difficulty doing errands alone such as visiting a physician's office or shopping No 12/22/2014 5:18 PM EDT Betty AlbertoBrenda No [facility] Mental Status Date Assessment Result Facility 12-22-2014 Because of a physica l, mental, or emotional condition, do you have serious difficulty concentrating, remembering, or making decisions No 12/22/2014 5:18 PM EDT Betty AlbertoBrenda No [facility] Clinical Notes 01-28-2020 to 02-17-2025 Patient InstructionsRodrigo Sepulveda MD - 02/17/2025 10:11 AM Danny Tovar LPN - 02/17/2025 10:00 AM Josette Arreguin RN - 02/02/2025 10:35 AM EDTPatient Instructions Note Date & Type Note Facility 02-17-2025 Instructions Rodrigo Sepulveda MD - 02/17/2025 10:36 AM EDT - Start levothyroxine 25 mcg once daily; prescription sent to [facility] for a 90-day supply - Start empagliflozin (Jardiance) 10 mg once daily; 30-day supply with 5 refills at [facility]--drink plenty of fluids and report any yeast infections, rash, or severe pain - If you can t get enough iron from food, consider a low-dose iron supplement; aim to include iron-rich foods such as beef, chicken, nuts, liver, cream of wheat, or fortified cereals - Drink 8-12 oz of water about an hour before any lab tests and stay well hydrated each day - In about 2 months, have labs drawn for TSH, free T4, and magnesium to assess your new medications - Before your July visit, complete these labs: Hemoglobin A1c Comprehensive metabolic panel (including kidney and liver tests) Blood counts (including hematocrit) Cholesterol panel Magnesium level Vitamin D level Urine albumin/creatinine ratio - Schedule your next 6-month follow-up/Medicare wellness visit in early July (alternating providers as before) and plan your subsequent 6-month check in December documented in this encounter [facility] 02-17-2025 Note HNO ID: [id number] Author: RODRIGO SEPULVEDA MD Service: ? Author Type: Physician Type: Progress Notes Filed: 03/12/2025 01:30 Note Text: This note was created using [employer] TV[employer]. Subjective Barbara Allen is a 69 year old female. SUBJECTIVE: Barbara Allen is a 69-year-old female with a history of diabetes mellitus, hypothyroidism, and heart disease, presenting for a 6-month follow-up. Barbara reports no new concerns or issues since her last visit. She is currently on multiple medications, including carvedilol, hydralazine, digoxin, Eliquis, Imdur, glimepiride, Plendil, omeprazole, Lasix, potassium, simvastatin, insulin, and vitamin D. 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 She reports that her blood glucose levels have been stable, with no episodes of hypoglycemia or hyperglycemia. Recent lab results show a slight decrease in hematocrit, but hemoglobin and RBC counts are within normal limits. Barbara inquires about the need for iron supplementation, as she is not currently taking any. Liver function tests reveal a mild elevation in alkaline phosphatase, but other liver enzymes are normal. Blood glucose is 110 mg/dL, and A1c has improved from 8.9% to 8.2%. Thyroid function tests indicate a slightly underactive thyroid, with TSH levels fluctuating over the past year. Barbara denies symptoms of hypothyroidism, such as constipation, fatigue, or bradycardia. Magnesium levels are slightly below normal, and Barbara is not taking magnesium supplements. She reports consistent swelling, which improves overnight and is less pronounced in the morning. PAST MEDICAL HISTORY Diagnosis Date Abnormal Papanicolaou smear of vagina and vaginal HPV Allergic rhinitis, cause unspecified Arm fracture 07/2010 right Cervicitis and endocervicitis Esophageal reflux Morbid obesity (HCC) Pure hypercholesterolemia Type II or unspecified type diabetes mellitus without mention of complication, not stated as uncontrolled 05/01/2005 Unspecified essential hypertension 05/01/2005 Current Outpatient Medications Medication Sig Cholecalciferol, Vitamin D3, (VITAMIN D) 25 mcg (1,000 unit) cap Take 1 capsule by mouth once daily. levothyroxine (SYNTHROID) 25 mcg tablet Take 1 tablet by mouth once daily. empagliflozin (JARDIANCE) 10 mg tablet Take 1 tablet by mouth daily with breakfast. insulin glargine (LANTUS SOLOSTAR U-100 INSULIN) 100 unit/mL (3 mL) Inject 22-32 Units subcutaneously daily at bedtime. simvastatin (ZOCOR) 40 mg tablet Take 1 tablet by mouth once daily. potassium chloride ER (KLOR-CON) 20 mEq tablet Take 1 tablet by mouth two times a day. furosemide (LASIX) 40 mg tablet Take 1 tablet by mouth two times a day. felodipine ER (PLENDIL) 10 mg 24 hr tablet Take 2 tablets by mouth once daily. glimepiride (AMARYL) 4 mg tablet Take 1 tablet by mouth two times a day with meals. omeprazole (PRILOSEC) 20 mg capsule Take 1 capsule by mouth daily before breakfast. 1/2 hr before meal. insulin needles, DISPOSABLE, (BD INSULIN PEN NEEDLE UF) 31 gauge x 5/16" Use 1 new pen needle with each injection of insulin. 1 daily. Diagnosis: (E11.65, Z79.4) ferrous sulfate 325 mg (65 mg iron) tablet Take 1 tablet by mouth every other day. (Patient not taking: Reported on 02/17/2025) blood sugar diagnostic ([employer] ULTRA TEST) test strip Use as instructed FOR TESTING twice daily. Dx: E11.65, Z79.4, Insulin: YES ELIQUIS 5 mg tab(s) Take 5 mg by mouth twice daily. digoxin (LANOXIN) 125 mcg (0.125 mg) tablet Take 125 mcg by mouth once daily. hydrALAZINE (APRESOLINE) 25 mg tablet Take 25 mg by mouth three times daily. isosorbide mononitrate ER (IMDUR) 30 mg 24 hr tablet Take 30 mg by mouth once daily. carvedilol (COREG) 12.5 mg tablet TAKE 1 TABLET BY MOUTH TWICE A DAY WITH A MEAL OR FOOD Miscellaneous [employer] Jobst stockings 30 mm Hg Knee high (dispense 4 pairs). (I87.303) Stasis edema of both lower extremities Multivitamins chew Take 2 tablets daily. No current facility-administered medications for this visit. Review of Systems Objective BP 128/64 (BP Site: Left Arm, BP Position: Sitting, BP Cuff Size: Large Adult) Pulse 85 Temp 36.6 ?C (97.9 ?F) (Temporal) Resp 14 Ht 166.4 cm (5' 5.5") Wt 110.7 kg (244 lb 0.8 oz) SpO2 97% BMI 39.99 kg/m? Physical Exam Latest Ref Rng 01/24/2024 07/22/2024 02/02/2025 WBC 3.70 - 11.00 k/uL 7.86 7.45 7.65 RBC 3.90 - 5.20 m/uL 4.38 4.26 4.02 Hemoglobin 11.5 - 15.5 g/dL 12.6 12.1 11.5 Hematocrit 36.0 - 46.0 % 38.7 36.9 34.9 (L) MCV 80.0 - 100.0 fL 88.4 86.6 86.8 MCH 26.0 - 34.0 pg 28.8 28.4 28.6 MCHC 30.5 - 36.0 g/dL 32.6 32.8 33.0 RDW-CV 11.5 - 15.0 % 13.4 13.3 14.4 Platelet Count 150 - 400 k/uL 218 209 219 MPV 9.0 - 12.7 fL 10.2 10.0 10.5 Neut% % 74.9 Abs Neut (ANC) 1.45 - 7.50 k/uL 5.73 Lymph% % 14.8 Abs Lymph 1.00 - 4.00 k/uL 1.13 Towns% % 7.2 Abs Towns <0.87 k/uL 0.5 (more content not included)... [facility] 02-17-2025 History of Present illness Narrative This note was created using [employer]. Subjective Barbara Allen is a 69 year old female. SUBJECTIVE: Barbara Allen is a 69-year-old female with a history of diabetes mellitus, hypothyroidism, and heart disease, presenting for a 6-month follow-up. Barbara reports no new concerns or issues since her last visit. She is currently on multiple medications, including carvedilol, hydralazine, digoxin, Eliquis, Imdur, glimepiride, Plendil, omeprazole, Lasix, potassium, simvastatin, insulin, and vitamin D. 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 She reports that her blood glucose levels have been stable, with no episodes of hypoglycemia or hyperglycemia. Recent lab results show a slight decrease in hematocrit, but hemoglobin and RBC counts are within normal limits. Barbara inquires about the need for iron supplementation, as she is not currently taking any. Liver function tests reveal a mild elevation in alkaline phosphatase, but other liver enzymes are normal. Blood glucose is 110 mg/dL, and A1c has improved from 8.9% to 8.2%. Thyroid function tests indicate a slightly underactive thyroid, with TSH levels fluctuating over the past year. Barbara denies symptoms of hypothyroidism, such as constipation, fatigue, or bradycardia. Magnesium levels are slightly below normal, and Barbara is not taking magnesium supplements. She reports consistent swelling, which improves overnight and is less pronounced in the morning. PAST MEDICAL HISTORY Diagnosis Date Abnormal Papanicolaou smear of vagina and vaginal HPV Allergic rhinitis, cause unspecified Arm fracture 07/2010 right Cervicitis and endocervicitis Esophageal reflux Morbid obesity (HCC) Pure hypercholesterolemia Type II or unspecified type diabetes mellitus without mention of complication, not stated as uncontrolled 05/01/2005 Unspecified essential hypertension 05/01/2005 Current Outpatient Medications Medication Sig Cholecalciferol, Vitamin D3, (VITAMIN D) 25 mcg (1,000 unit) cap Take 1 capsule by mouth once daily. levothyroxine (SYNTHROID) 25 mcg tablet Take 1 tablet by mouth once daily. empagliflozin (JARDIANCE) 10 mg tablet Take 1 tablet by mouth daily with breakfast. insulin glargine (LANTUS SOLOSTAR U-100 INSULIN) 100 unit/mL (3 mL) Inject 22-32 Units subcutaneously daily at bedtime. simvastatin (ZOCOR) 40 mg tablet Take 1 tablet by mouth once daily. potassium chloride ER (KLOR-CON) 20 mEq tablet Take 1 tablet by mouth two times a day. furosemide (LASIX) 40 mg tablet Take 1 tablet by mouth two times a day. felodipine ER (PLENDIL) 10 mg 24 hr tablet Take 2 tablets by mouth once daily. glimepiride (AMARYL) 4 mg tablet Take 1 tablet by mouth two times a day with meals. omeprazole (PRILOSEC) 20 mg capsule Take 1 capsule by mouth daily before breakfast. 1/2 hr before meal. insulin needles, DISPOSABLE, (BD INSULIN PEN NEEDLE UF) 31 gauge x 5/16" Use 1 new pen needle with each injection of insulin. 1 daily. Diagnosis: (E11.65, Z79.4) ferrous sulfate 325 mg (65 mg iron) tablet Take 1 tablet by mouth every other day. (Patient not taking: Reported on 02/17/2025) blood sugar diagnostic ([employer] ULTRA TEST) test strip Use as instructed FOR TESTING twice daily. Dx: E11.65, Z79.4, Insulin: YES ELIQUIS 5 mg tab(s) Take 5 mg by mouth twice daily. digoxin (LANOXIN) 125 mcg (0.125 mg) tablet Take 125 mcg by mouth once daily. hydrALAZINE (APRESOLINE) 25 mg tablet Take 25 mg by mouth three times daily. isosorbide mononitrate ER (IMDUR) 30 mg 24 hr tablet Take 30 mg by mouth once daily. carvedilol (COREG) 12.5 mg tablet TAKE 1 TABLET BY MOUTH TWICE A DAY WITH A MEAL OR FOOD M[employer] Jobst stockings 30 mm Hg Knee high (dispense 4 pairs). (I87.303) Stasis edema of both lower extremities Multivitamins chew Take 2 tablets daily. No current facility-administered medications for this visit. Review of Systems Objective BP 128/64 (BP Site: Left Arm, BP Position: Sitting, BP Cuff Size: Large Adult) Pulse 85 Temp 36.6 C (97.9 F) (Temporal) Resp 14 Ht 166.4 cm (5' 5.5") Wt 110.7 kg (244 lb 0.8 oz) SpO2 97% BMI 39.99 kg/m Physical Exam Latest Ref Rng 01/24/2024 07/22/2024 02/02/2025 WBC 3.70 - 11.00 k/uL 7.86 7.45 7.65 RBC 3.90 - 5.20 m/uL 4.38 4.26 4.02 Hemoglobin 11.5 - 15.5 g/dL 12.6 12.1 11.5 Hematocrit 36.0 - 46.0 % 38.7 36.9 34.9 (L) MCV 80.0 - 100.0 fL 88.4 86.6 86.8 MCH 26.0 - 34.0 pg 28.8 28.4 28.6 MCHC 30.5 - 36.0 g/dL 32.6 32.8 33.0 RDW-CV 11.5 - 15.0 % 13.4 13.3 14.4 Platelet Count 150 - 400 k/uL 218 209 219 MPV 9.0 - 12.7 fL 10.2 10.0 10.5 Neut% % 74.9 Abs Neut (ANC) 1.45 - 7.50 k/uL 5.73 Lymph% % 14.8 Abs Lymph 1.00 - 4.00 k/uL 1.13 Towns% % 7.2 Abs Towns <0.87 k/uL 0.55 Eosin% % 2.2 Abs Eosin <0.46 k/uL 0.17 Baso% % 0.5 Abs Baso <0.11 k/uL 0.04 Immature Gran % % 0.4 IMMATURE GRANS (ABS) <0.10 k/uL 0.03 NRBC /100 WBC 0.0 Absolute nRBC <0.01 k/uL <0.01 <0.01 <0.01 DTYPE Auto Color Yellow Yellow Yellow Clarity Clear Cloudy ! Cloudy ! Glucose, Urine Negative Negative Negative Bilirubin, Urine Negative Negative Negative Ketones, Urine Negative Negative Negative Specific [place], Ur 1.005 - 1.030 1.017 1.013 Hemoglobin/Blood,Ur Negative Trace ! 1+ ! pH, Urine <8.5 6.0 7.5 Protein, Urine Negative 3+ ! 3+ ! Urobilinogen 0.2-1.0 EU/dL 0.2 EU/dL 0.2 EU/dL Nitrites Negative Positive ! Positive ! Leukest Negative 2+ ! 1+ ! WBC, Urine 0-5 /HPF >20 /HPF ! >20 /HPF ! RBC, Urine 0-2 /HPF 0-2 /HPF 6-10 /HPF ! Bacteria uL Negative uL >9,821 (H) >9,821 (H) Epithelial Cells /HPF Moderate Few Hyaline Cast 0 /LPF 1-3 /LPF ! 1-3 /LPF ! Protein, Total 6.3 - 8.0 g/dL 7.4 7.5 7.4 Albumin 3.9 - 4.9 g/dL 4.0 4.1 4.0 Calcium 8.5 - 10.2 mg/dL 9.6 9.6 9.5 Bilirubin, Total 0.2 - 1.3 mg/dL 0.6 0.5 0.5 Alkaline Phosphatase 34 - 123 U/L 123 122 135 (H) AST 13 - 35 U/L 14 11 (L) 11 (L) ALT 7 - 38 U/L 8 8 10 Glucose 74 - 99 mg/dL 59 (L) 79 110 (H) BUN 7 - 21 mg/dL 19 23 (H) 24 (H) Creatinine 0.58 - 0.96 mg/dL 0.85 0.84 0.88 Sodium 136 - 144 mmol/L 141 139 140 Potassium 3.7 - 5.1 mmol/L 3.6 (L) 3.9 4.5 Chloride 98 - 107 mmol/L 107 (H) 104 107 CO2 22 - 30 mmol/L 25 21 (L) 20 (L) Anion Gap 8 - 15 mmol/L 9 14 13 eGFR >=60 mL/min/1.73m 74 74 70 Cholesterol, Total <200 mg/dL 143 160 137 Triglyceride <150 mg/dL 78 89 73 HDL Cholesterol >39 mg/dL 50 53 48 Non HDL Cholesterol <130 mg/dL 93 107 89 Fasting Time hrs 12 12 12 VLDL Cholesterol <30 mg/dL 16 18 11 TC:HDL Ratio <5.10 2.86 3.02 2.85 LDL Cholesterol, Calculated <100 mg/dL 77 89 74 LDL:HDL Ratio <2.54 1.54 1.68 1.54 Creatinine, Ur Random (UCRR) 20.0 - 300.0 mg/dL 115.0 45.9 39.8 Albumin, Urine Random mg/L 1,765.2 1,218.1 940.2 Albumin/Creat Ratio <30 mg/g 1,535 (H) 2,654 (H) 2,362 (H) Hemoglobin A1C 4.3 - 5.6 % 8.9 (H) 8.2 (H) Estimated Average Glucose mg/dL 209 189 Vitamin D 25 Hydroxy 31.0 - 80.0 ng/mL 18.6 (L) 37.0 38.2 Magnesium 1.7 - 2.3 mg/dL 1.8 1.7 1.6 (L) TSH 0.270 - 4.200 mIU/L 3.430 8.150 (H) 6.410 (H) Legend: ! Abnormal (H) High (L) Low Assessment and Plan # Controlled type 2 diabetes mellitus with microalbuminuria, with long-term current use of insulin (HCC) (E11.29) - Hemoglobin A1c improved to 8.2% from 8.9%. - Initiated Jardiance 10 mg daily for renal protection and glycemic control; potential side effects include increased risk of yeast infections, dehydration, and rare cases of pancreatitis. - Ordered follow-up labs in July to monitor A1c and renal function. # Pure hypercholesterolemia (E78.00) - LDL cholesterol at 74 mg/dL, triglycerides <150 mg/dL, HDL in the 40s. - Continue simvastatin as prescribed. - Follow-up labs in July to monitor lipid profile. # Vitamin D deficiency (E55.9) - Current vitamin D levels are within normal range. - Continue [id number]-[id number] vitamin D supplementation. - Recheck vitamin D levels in July. # Essential hypertension (I10) - Blood pressure well-controlled on current regimen including Plendil. - Refill for Plendil sent to [facility]. - Monitor blood pressure regularly. # Acquired hypothyroidism (E03.9) - TSH elevated at 6.8. - Initiated levothyroxine 25 mcg daily. - Ordered TSH and free T4 levels to be checked in two months to assess response to therapy. # Longstanding persistent atrial fibrillation (HCC) (I48.11) - Managed by cardiology with carvedilol, digoxin, and Eliquis. - No changes to current management. # Gastroesophageal reflux disease without esophagitis (K21.9) - Controlled with omeprazole. - Refill for omeprazole sent to [facility]. # Hypomagnesemia (E83.42) - Magnesium level slightly below normal. - Increase dietary intake of magnesium-rich foods. - Recheck magnesium levels in two months. # Pulmonary hypertension (HCC) (I27.20) - Managed by cardiology with current medications including Imdur. - No changes to current management. # Severe obesity (BMI 35.0-39.9) with comorbidity (HCC) (E66.01) - Discussed potential benefits of weight management on overall health, including glycemic control and hypothyroidism. - Encouraged regular physical activity and a balanced diet. Rodrigo Sepulveda MD Recording using iTaggit software for draft documentation of the visit was discussed with the patient/authorized shipping services sales representative; all questions welcomed and answered. Patient/authorized shipping services sales representative agreed to proceed Last seen eye doctor x 1 year ago at [facility]- Last seen [facility] on 02/04/25 documented in this encounter [facility] 02-17-2025 Note HNO ID: [id number] Author: DANNY TREJO LPN Service: ? Author Type: LICENSED NURSE Type: Progress Notes Filed: 03/12/2025 01:30 Note Text: Last seen eye doctor x 1 year ago at [facility]- Last seen [facility] on 02/04/25 [facility] 02-02-2025 Note HNO ID: [id number] Author: JOSETTE SALCEDO RN Service: ? Author Type: Registered Nurse Type: Progress Notes Filed: 02/02/2025 10:35 Note Text: Value Based Care Coordination Chart Review Provider Action / FYI: Unable to reach for CDM NOV 02/17/25 PCP Upon review of patient chart, the patient is excluded from Chronic Disease Management Patient is not a candidate for CDM at this time and placed in the following status: Unable to reach Action taken: No action needed . Josette Salcedo RN February 02, 2025 10:35 AM [facility] 02-02-2025 History of Present illness Narrative Value Based Care Coordination Chart Review Provider Action / FYI: Unable to reach for CDM 02/17/25 PCP Upon review of patient chart, the patient is excluded from Chronic Disease Management Patient is not a candidate for CDM at this time and placed in the following status: Unable to reach Action taken: No action needed . Josette Salcedo RN February 02, 2025 10:35 AM documented in this encounter [facility] 02-02-2025 Note Patient Outreach (AM [facility]) BARBARA ALLEN ([id number]) 1955 F Date Time Provider Department 02/02/25 JOSETTE SALCEDO AMBSHINEG During your visit today, we recorded the following information about you: Josette Salcedo RN 02/02/2025 10:35 AM Signed Value Based Care Coordination Chart Review Provider Action / FYI: Unable to reach for CDM 02/17/25 PCP Upon review of patient chart, the patient is excluded from Chronic Disease Management Patient is not a candidate for CDM at this time and placed in the following status: Unable to reach Action taken: No action needed . Josette Salcedo RN February 02, 2025 10:35 AM Allergies As of Date: 02/02/2025 Noted Allergy Reaction LISINOPRIL 03/10/2014 3 - Cough Date Reviewed: 08/03/2024 Reviewed by: Jillian Mojica APRN.CRECHE ATTENDANT - Fully Assessed Reason for Visit: Care Coordination [3491] Prescriptions as of 02/02/2025 - insulin glargine (LANTUS SOLOSTAR U-100 INSULIN) 100 unit/mL (3 mL) Inject 22-32 Units subcutaneously daily at bedtime. - simvastatin (ZOCOR) 40 mg tablet Take 1 tablet by mouth once daily. - potassium chloride ER (KLOR-CON) 20 mEq tablet Take 1 tablet by mouth two times a day. - furosemide (LASIX) 40 mg tablet Take 1 tablet by mouth two times a day. - felodipine ER (PLENDIL) 10 mg 24 hr tablet Take 2 tablets by mouth once daily. - glimepiride (AMARYL) 4 mg tablet Take 1 tablet by mouth two times a day with meals. - omeprazole (PRILOSEC) 20 mg capsule Take 1 capsule by mouth daily before breakfast. 1/2 hr before meal. - insulin needles, DISPOSABLE, (BD INSULIN PEN NEEDLE UF) 31 gauge x 5/16" Use 1 new pen needle with each injection of insulin. 1 daily. Diagnosis: (E11.65, Z79.4) - ferrous sulfate 325 mg (65 mg iron) tablet Take 1 tablet by mouth every other day. - blood sugar diagnostic ([employer] ULTRA TEST) test strip Use as instructed FOR TESTING twice daily. Dx: E11.65, Z79.4, Insulin: YES - ELIQUIS 5 mg tab(s) Take 5 mg by mouth twice daily. - digoxin (LANOXIN) 125 mcg (0.125 mg) tablet Take 125 mcg by mouth once daily. - hydrALAZINE (APRESOLINE) 25 mg tablet Take 25 mg by mouth three times daily. - isosorbide mononitrate ER (IMDUR) 30 mg 24 hr tablet Take 30 mg by mouth once daily. - carvedilol (COREG) 12.5 mg tablet TAKE 1 TABLET BY MOUTH TWICE A DAY WITH A MEAL OR FOOD - Miscellaneous Medical Supply Jobst stockings 30 mm Hg Knee high (dispense 4 pairs). (I87.303) Stasis edema of both lower extremities - Multivitamins chew Take 2 tablets daily. Problem List As Of Date 02/02/2025 Noted Resolved Type 2 diabetes mellitus with microalbuminuria,*05/01/2005 Essential hypertension [I10] 05/01/2005 PURE HYPERCHOLESTEROLEM [E78.00] 05/01/2005 ESOPHAGEAL REFLUX [K21.9] 05/08/2006 Class 3 severe obesity with body mass index (BM*05/08/2006 03/18/2023 Osteopenia [M85.80] 03/03/2012 Uncontrolled type 2 diabetes mellitus with insu*01/28/2020 09/03/2021 Atrial fibrillation (HCC) [I48.91] 03/18/2023 Chronic anticoagulation [Z79.01] 08/03/2024 Encounter Status:Closed by JOSETTE SALCEDO on 02/02/25 [facility] 02-01-2025 Telephone encounter Note rx sent. [facility] 02-01-2025 Miscellaneous Notes rx sent. Prescription Refill Information The patient has been identified by name and date of : Yes Caregiver verified no other encounters exist for this prescription request: Yes Caregiver confirmed with patient/requestor that no other refills are due, in the near future, with this provider at this time: Yes The last office visit in the department: 08/25/24 Does the patient have a future office visit with this provider/department: Yes Requested Prescriptions Pending Prescriptions Disp Refills insulin glargine (LANTUS SOLOSTAR U-100 INSULIN) 100 unit/mL (3 mL) 3 each 11 Sig: Inject 22-32 Units subcutaneously daily at bedtime. Pepper Sharma LPN February 01, 2025 3:16 PM documented in this encounter [facility] 02-01-2025 Telephone encounter Note Prescription Refill Information The patient has been identified by name and date of : Yes Caregiver verified no other encounters exist for this prescription request: Yes Caregiver confirmed with patient/requestor that no other refills are due, in the near future, with this provider at this time: Yes The last office visit in the department: 08/25/24 Does the patient have a future office visit with this provider/department: Yes Requested Prescriptions Pending Prescriptions Disp Refills insulin glargine (LANTUS SOLOSTAR U-100 INSULIN) 100 unit/mL (3 mL) 3 each 11 Sig: Inject 22-32 Units subcutaneously daily at bedtime. Pepper Sharma LPN February 01, 2025 3:16 PM [facility] 01-29-2025 Telephone encounter Note Prescription Refill Information The patient has been identified by name and date of : Yes Caregiver verified no other encounters exist for this prescription request: Yes Caregiver confirmed with patient/requestor that no other refills are due, in the near future, with this provider at this time: Yes The last office visit in the department: 08/03/24 Does the patient have a future office visit with this provider/department: Yes Requested Prescriptions Pending Prescriptions Disp Refills insulin glargine (LANTUS SOLOSTAR U-100 INSULIN) 100 unit/mL (3 mL) 30 mL 3 Sig: Inject 22-32 Units subcutaneously daily at bedtime. Pepper Sharma LPN January 29, 2025 4:00 PM [facility] 01-29-2025 Miscellaneous Notes Prescription Refill Information The patient has been identified by name and date of : Yes Caregiver verified no other encounters exist for this prescription request: Yes Caregiver confirmed with patient/requestor that no other refills are due, in the near future, with this provider at this time: Yes The last office visit in the department: 08/03/24 Does the patient have a future office visit with this provider/department: Yes Requested Prescriptions Pending Prescriptions Disp Refills insulin glargine (LANTUS SOLOSTAR U-100 INSULIN) 100 unit/mL (3 mL) 30 mL 3 Sig: Inject 22-32 Units subcutaneously daily at bedtime. Pepper Sharma LPN January 29, 2025 4:00 PM documented in this encounter [facility] 01-29-2025 Telephone encounter Note Prescription Refill Information The patient has been identified by name and date of : Yes Caregiver verified no other encounters exist for this prescription request: Yes Caregiver confirmed with patient/requestor that no other refills are due, in the near future, with this provider at this time: Yes The last office visit in the department: 08/03/24 Does the patient have a future office visit with this provider/department: Yes Requested Prescriptions Pending Prescriptions Disp Refills simvastatin (ZOCOR) 40 mg tablet 90 tablet 3 Sig: Take 1 tablet by mouth once daily. Pepper Sharma LPN January 29, 2025 3:59 PM [facility] 01-29-2025 Miscellaneous Notes Prescription Refill Information The patient has been identified by name and date of : Yes Caregiver verified no other encounters exist for this prescription request: Yes Caregiver confirmed with patient/requestor that no other refills are due, in the near future, with this provider at this time: Yes The last office visit in the department: 08/03/24 Does the patient have a future office visit with this provider/department: Yes Requested Prescriptions Pending Prescriptions Disp Refills simvastatin (ZOCOR) 40 mg tablet 90 tablet 3 Sig: Take 1 tablet by mouth once daily. Pepper Sharma LPN January 29, 2025 3:59 PM documented in this encounter [facility] 01-15-2025 Telephone encounter Note Filed [facility] 01-15-2025 Miscellaneous Notes Filed documented in this encounter [facility] 12-18-2024 Telephone encounter Note Prescription Refill Information The patient has been identified by name and date of : Yes Caregiver verified no other encounters exist for this prescription request: Yes Caregiver confirmed with patient/requestor that no other refills are due, in the near future, with this provider at this time: Yes The last office visit in the department: 08/03/24 Does the patient have a future office visit with this provider/department: Yes 02/17/25 Requested Prescriptions Pending Prescriptions Disp Refills potassium chloride ER (KLOR-CON) 20 mEq tablet 180 tablet 2 Sig: Take 1 tablet by mouth two times a day. Gillian Garcia LPN December 18, 2024 2:00 PM [facility] 12-18-2024 Miscellaneous Notes Prescription Refill Information The patient has been identified by name and date of : Yes Caregiver verified no other encounters exist for this prescription request: Yes Caregiver confirmed with patient/requestor that no other refills are due, in the near future, with this provider at this time: Yes The last office visit in the department: 08/03/24 Does the patient have a future office visit with this provider/department: Yes 02/17/25 Requested Prescriptions Pending Prescriptions Disp Refills potassium chloride ER (KLOR-CON) 20 mEq tablet 180 tablet 2 Sig: Take 1 tablet by mouth two times a day. Gillian Garcia LPN December 18, 2024 2:00 PM documented in this encounter [facility] 12-16-2024 History of Present illness Narrative Primary Care Pharmacy Panel Management This patient has been identified through Specialty Integration/Value-Based Operations Diabetes Registry Review by the primary care pharmacy team. Patient identified to likely benefit from pharmacy management. Attempted to contacted patient discuss consult agreement/services, and to schedule initial appointment however, patient was unable to be reached at this time. Will re-attempt to reach patient at later time. If unable to be reached on follow up attempt, will plan to place referral for assistance with scheduling from call center thereafter. Thank you, Vik Corey PharmD, BCACP documented in this encounter [facility] 12-16-2024 Note HNO ID: [id number] Author: VIK COREY RPh Service: ? Author Type: Pharmacist Type: Progress Notes Filed: 12/18/2024 12:23 Note Text: Re-contacted patient again today. Spoke to patient who declines primary care pharmacy services at this time. However, after reviewing what these visits encompass, patient advised that she may be interested at a future time and will plan to discuss further with her PCP at upcoming visit on 02/17/25 and decide thereafter. Advised patient to feel free to reach out to her provider office is decides would like referral prior to PCP visit. Verbalized understanding. After review, determined that the patient is not a candidate for pharmacy referral at this time due to previously declined pharmacy services. Thank you, Vik Corey PharmD, FLORESITACP [facility] 12-16-2024 Note HNO ID: [id number] Author: VIK COREY RPh Service: ? Author Type: Pharmacist Type: Progress Notes Filed: 12/16/2024 16:00 Note Text: Primary Care Pharmacy Panel Management This patient has been identified through Specialty Integration/Value-Based Operations Diabetes Registry Review by the primary care pharmacy team. Patient identified to likely benefit from pharmacy management. Attempted to contacted patient discuss consult agreement/services, and to schedule initial appointment however, patient was unable to be reached at this time. Will re-attempt to reach patient at later time. If unable to be reached on follow up attempt, will plan to place referral for assistance with scheduling from call center thereafter. Thank you, Vik Corey PharmD, BCACP [facility] 12-16-2024 Note Patient Outreach (PM STOW) BARBARA ALLEN ([id number]) 1955 F Date Time Provider Department 12/16/24 VIK COREY PMSTOW During your visit today, we recorded the following information about you: Vik Corey RPh 12/16/2024 4:00 PM Signed Primary Care Pharmacy Panel Management This patient has been identified through Specialty Integration/Value-Based Operations Diabetes Registry Review by the primary care pharmacy team. Patient identified to likely benefit from pharmacy management. Attempted to contacted patient discuss consult agreement/services, and to schedule initial appointment however, patient was unable to be reached at this time. Will re-attempt to reach patient at later time. If unable to be reached on follow up attempt, will plan to place referral for assistance with scheduling from call center thereafter. Thank you, Vik Corey PharmD, BCACP Vik Corye RPh 12/18/2024 12:23 PM Signed Re-contacted patient again today. Spoke to patient who declines primary care pharmacy services at this time. However, after reviewing what these visits encompass, patient advised that she may be interested at a future time and will plan to discuss further with her PCP at upcoming visit on 02/17/25 and decide thereafter. Advised patient to feel free to reach out to her provider office is decides would like referral prior to PCP visit. Verbalized understanding. After review, determined that the patient is not a candidate for pharmacy referral at this time due to previously declined pharmacy services. Thank you, Hardeep CarbajalD, BCACP Allergies As of Date: 12/16/2024 Noted Allergy Reaction LISINOPRIL 03/10/2014 3 - Cough Date Reviewed: 08/03/2024 Reviewed by: Jillian Mojica APRN.CRECHE ATTENDANT - Fully Assessed Reason for Visit: Care Coordination [8861] Cmt: Panel Management Review for Pharmacist Referral for Diabetes Management Prescriptions as of 12/18/2024 - furosemide (LASIX) 40 mg tablet Take 1 tablet by mouth two times a day. - felodipine ER (PLENDIL) 10 mg 24 hr tablet Take 2 tablets by mouth once daily. - glimepiride (AMARYL) 4 mg tablet Take 1 tablet by mouth two times a day with meals. - omeprazole (PRILOSEC) 20 mg capsule Take 1 capsule by mouth daily before breakfast. 1/2 hr before meal. - insulin needles, DISPOSABLE, (BD INSULIN PEN NEEDLE UF) 31 gauge x 5/16" Use 1 new pen needle with each injection of insulin. 1 daily. Diagnosis: (E11.65, Z79.4) - insulin glargine (LANTUS SOLOSTAR U-100 INSULIN) 100 unit/mL (3 mL) Inject 22-32 Units subcutaneously daily at bedtime. - potassium chloride ER (KLOR-CON) 20 mEq tablet Take 1 tablet by mouth two times a day. - simvastatin (ZOCOR) 40 mg tablet Take 1 tablet by mouth once daily. - ferrous sulfate 325 mg (65 mg iron) tablet Take 1 tablet by mouth every other day. - blood sugar diagnostic ([employer] ULTRA TEST) test strip Use as instructed FOR TESTING twice daily. Dx: E11.65, Z79.4, Insulin: YES - ELIQUIS 5 mg tab(s) Take 5 mg by mouth twice daily. - digoxin (LANOXIN) 125 mcg (0.125 mg) tablet Take 125 mcg by mouth once daily. - hydrALAZINE (APRESOLINE) 25 mg tablet Take 25 mg by mouth three times daily. - isosorbide mononitrate ER (IMDUR) 30 mg 24 hr tablet Take 30 mg by mouth once daily. - carvedilol (COREG) 12.5 mg tablet TAKE 1 TABLET BY MOUTH TWICE A DAY WITH A MEAL OR FOOD - Miscellaneous Medical Supply Jobst stockings 30 mm Hg Knee high (dispense 4 pairs). (I87.303) Stasis edema of both lower extremities - Multivitamins chew Take 2 tablets daily. Problem List As Of Date 12/16/2024 Noted Resolved Type 2 diabetes mellitus with microalbuminuria,*05/01/2005 Essential hypertension [I10] 05/01/2005 PURE HYPERCHOLESTEROLEM [E78.00] 05/01/2005 ESOPHAGEAL REFLUX [K21.9] 05/08/2006 Class 3 severe obesity with body mass index (BM*05/08/2006 03/18/2023 Osteopenia [M85.80] 03/03/2012 Uncontrolled type 2 diabetes mellitus with insu*01/28/2020 09/03/2021 Atrial fibrillation (HCC) [I48.91] 03/18/2023 Chronic anticoagulation [Z79.01] 08/03/2024 Encounter Status:Closed by VIK COREY on 12/16/24 [facility] 12-08-2024 Note Patient Outreach (IN TMWS) BARBARA ALLEN ([id number]) 1955 F Date Time Provider Department 12/08/24 RODRIGO SEPULVEDA INTMWS During your visit today, we recorded the following information about you: Allergies As of Date: 12/08/2024 Noted Allergy Reaction LISINOPRIL 03/10/2014 3 - Cough Date Reviewed: 08/03/2024 Reviewed by: Jillian Mojica APRN.CRECHE ATTENDANT - Fully Assessed Visit Diagnosis:Encounter for screening mammogram for breast cancer [Z12.31] Order(s):[facility] SCRE[facility] [[id number]] Order #: [id number] FUTURE Prescriptions as of 01/08/2025 - potassium chloride ER (KLOR-CON) 20 mEq tablet Take 1 tablet by mouth two times a day. - furosemide (LASIX) 40 mg tablet Take 1 tablet by mouth two times a day. - felodipine ER (PLENDIL) 10 mg 24 hr tablet Take 2 tablets by mouth once daily. - glimepiride (AMARYL) 4 mg tablet Take 1 tablet by mouth two times a day with meals. - omeprazole (PRILOSEC) 20 mg capsule Take 1 capsule by mouth daily before breakfast. 1/2 hr before meal. - insulin needles, DISPOSABLE, (BD INSULIN PEN NEEDLE UF) 31 gauge x 5/16" Use 1 new pen needle with each injection of insulin. 1 daily. Diagnosis: (E11.65, Z79.4) - insulin glargine (LANTUS SOLOSTAR U-100 INSULIN) 100 unit/mL (3 mL) Inject 22-32 Units subcutaneously daily at bedtime. - simvastatin (ZOCOR) 40 mg tablet Take 1 tablet by mouth once daily. - ferrous sulfate 325 mg (65 mg iron) tablet Take 1 tablet by mouth every other day. - blood sugar diagnostic ([employer] TEST) test strip Use as instructed FOR TESTING twice daily. Dx: E11.65, Z79.4, Insulin: YES - ELIQUIS 5 mg tab(s) Take 5 mg by mouth twice daily. - digoxin (LANOXIN) 125 mcg (0.125 mg) tablet Take 125 mcg by mouth once daily. - hydrALAZINE (APRESOLINE) 25 mg tablet Take 25 mg by mouth three times daily. - isosorbide mononitrate ER (IMDUR) 30 mg 24 hr tablet Take 30 mg by mouth once daily. - carvedilol (COREG) 12.5 mg tablet TAKE 1 TABLET BY MOUTH TWICE A DAY WITH A MEAL OR FOOD - Miscellaneous Medical Supply Jobst stockings 30 mm Hg Knee high (dispense 4 pairs). (I87.303) Stasis edema of both lower extremities - Multivitamins chew Take 2 tablets daily. Problem List As Of Date 12/08/2024 Noted Resolved Type 2 diabetes mellitus with microalbuminuria,*05/01/2005 Essential hypertension [I10] 05/01/2005 PURE HYPERCHOLESTEROLEM [E78.00] 05/01/2005 ESOPHAGEAL REFLUX [K21.9] 05/08/2006 Class 3 severe obesity with body mass index (BM*05/08/2006 03/18/2023 Osteopenia [M85.80] 03/03/2012 Uncontrolled type 2 diabetes mellitus with insu*01/28/2020 09/03/2021 Atrial fibrillation (HCC) [I48.91] 03/18/2023 Chronic anticoagulation [Z79.01] 08/03/2024 Encounter Status:Closed by KIERA WILHELM on 01/08/25 [facility] 11-18-2024 Note HNO ID: [id number] Author: VANESSA DE LA ROSA MA Service: ? Author Type: Motor Vehicle Assembly Supervisor Type: Progress Notes Filed: 11/18/2024 17:06 Note Text: POPULATION HEALTH NAVIGATION OUTREACH Action/FYI Patient replies via [employer] declines scheduling Learndothart message sent to patient Reason for Outreach Returned Call/MyChart Patient Contacted: Spoke to patient/parent/or legal guardian Patient identified by name and date of : Yes Returned call/Learndothart actions taken: Learndothart message sent Patient declined: Patient will contact office directly to schedule Navigation Signature: Vanessa Navarro MA November 18, 2024 5:03 PM [facility] 11-18-2024 Note HNO ID: [id number] Author: VANESSA DE LA ROSA MA Service: ? Author Type: Motor Vehicle Assembly Supervisor Type: Progress Notes Filed: 11/18/2024 10:49 Note Text: POPULATION HEALTH NAVIGATION OUTREACH Action/FYI Last Wellness exam: 01.29.2024 Last OV: 12..2023 Upcoming follow up noted 6..2024 Mammo: due since 2015 CRCS: due since 2021 - FOBT last completed A1c: due since 10/2024 KED: UACR and CMP due Diabetic Eye exam: Due 7. - last completed at [facility] Reason for Outreach Care Gap/HCC or Scheduling Wellness Visits Care Gaps due: Medicare Annual Wellness Visit Breast Cancer Screening Colorectal Cancer Screening Diabetic Eye Exam HBA1C KED Patient Contacted: Unable or unnecessary to reach patient: Left message MVP Interactive message sent Updated appointment notes Navigation Signature: Vanessa Navarro MA November 18, 2024 9:30 AM [facility] 11-18-2024 History of Present illness Narrative POPULATION HEALTH NAVIGATION OUTREACH Action/I Last Wellness exam: 01.29.2024 Last OV: 12..2023 Upcoming follow up noted 6..2024 Mammo: due since 2015 CRCS: due since 2021 - FOBT last completed A1c: due since 10/2024 KED: UACR and CMP due Diabetic Eye exam: Due 7. - last completed at [facility] Reason for Outreach Care Gap/HCC or Scheduling Wellness Visits Care Gaps due: Medicare Annual Wellness Visit Breast Cancer Screening Colorectal Cancer Screening Diabetic Eye Exam HBA1C KED Patient Contacted: Unable or unnecessary to reach patient: Left message MVP Interactive message sent Updated appointment notes Navigation Signature: Vanessa Navarro MA November 18, 2024 9:30 AM documented in this encounter [facility] 11-18-2024 Note Patient Outreach (DONNY PAEZ) ALEJANDROBARBARA ([id number]) 1955 F Date Time Provider Department 11/18/24 VANESSA DE LA ROSA NETRJV During your visit today, we recorded the following information about you: Vanessa De La Rosa MA 11/18/2024 10:49 AM Signed POPULATION HEALTH NAVIGATION OUTREACH Action/ Last Wellness exam: 5. Last OV: 12.2.2023 Upcoming follow up noted 6..2024 Mammo: due since 2015 CRCS: due since 2021 - FOBT last completed A1c: due since 10/2024 KED: UACR and CMP due Diabetic Eye exam: Due 7. - last completed at [facility] Reason for Outreach Care Gap/HCC or Scheduling Wellness Visits Care Gaps due: Medicare Annual Wellness Visit Breast Cancer Screening Colorectal Cancer Screening Diabetic Eye Exam HBA1C KED Patient Contacted: Unable or unnecessary to reach patient: Left message MyChart message sent Updated appointment notes Navigation Signature: Vanessa Navarro MA November 18, 2024 9:30 AM Vanessa De La Rosa MA 11/18/2024 5:06 PM Signed POPULATION HEALTH NAVIGATION OUTREACH Action/ Patient replies via mychart declines scheduling MyChart message sent to patient Reason for Outreach Returned Call/MyChart Patient Contacted: Spoke to patient/parent/or legal guardian Patient identified by name and date of : Yes Returned call/MyChart actions taken: MyChart message sent Patient declined: Patient will contact office directly to schedule Navigation Signature: Vanessa Navarro MA November 18, 2024 5:03 PM Allergies As of Date: 11/18/2024 Noted Allergy Reaction LISINOPRIL 03/10/2014 3 - Cough Date Reviewed: 08/03/2024 Reviewed by: Jillian Mojica APRN.CRECHE ATTENDANT - Fully Assessed Reason for Visit: Population Health Navigation Outreach [3910] Cmt: [employer] High Risk - Attempt 1 Prescriptions as of 11/18/2024 - furosemide (LASIX) 40 mg tablet Take 1 tablet by mouth two times a day. - felodipine ER (PLENDIL) 10 mg 24 hr tablet Take 2 tablets by mouth once daily. - glimepiride (AMARYL) 4 mg tablet Take 1 tablet by mouth two times a day with meals. - omeprazole (PRILOSEC) 20 mg capsule Take 1 capsule by mouth daily before breakfast. 1/2 hr before meal. - insulin needles, DISPOSABLE, (BD INSULIN PEN NEEDLE UF) 31 gauge x 5/16" Use 1 new pen needle with each injection of insulin. 1 daily. Diagnosis: (E11.65, Z79.4) - insulin glargine (LANTUS SOLOSTAR U-100 INSULIN) 100 unit/mL (3 mL) Inject 22-32 Units subcutaneously daily at bedtime. - potassium chloride ER (KLOR-CON) 20 mEq tablet Take 1 tablet by mouth two times a day. - simvastatin (ZOCOR) 40 mg tablet Take 1 tablet by mouth once daily. - ferrous sulfate 325 mg (65 mg iron) tablet Take 1 tablet by mouth every other day. - blood sugar diagnostic ([employer] ULTRA TEST) test strip Use as instructed FOR TESTING twice daily. Dx: E11.65, Z79.4, Insulin: YES - ELIQUIS 5 mg tab(s) Take 5 mg by mouth twice daily. - digoxin (LANOXIN) 125 mcg (0.125 mg) tablet Take 125 mcg by mouth once daily. - hydrALAZINE (APRESOLINE) 25 mg tablet Take 25 mg by mouth three times daily. - isosorbide mononitrate ER (IMDUR) 30 mg 24 hr tablet Take 30 mg by mouth once daily. - carvedilol (COREG) 12.5 mg tablet TAKE 1 TABLET BY MOUTH TWICE A DAY WITH A MEAL OR FOOD - Miscellaneous Medical Supply Jobst stockings 30 mm Hg Knee high (dispense 4 pairs). (I87.303) Stasis edema of both lower extremities - Multivitamins chew Take 2 tablets daily. Problem List As Of Date 11/18/2024 Noted Resolved Type 2 diabetes mellitus with microalbuminuria,*05/01/2005 Essential hypertension [I10] 05/01/2005 PURE HYPERCHOLESTEROLEM [E78.00] 05/01/2005 ESOPHAGEAL REFLUX [K21.9] 05/08/2006 Class 3 severe obesity with body mass index (BM*05/08/2006 03/18/2023 Osteopenia [M85.80] 03/03/2012 Uncontrolled type 2 diabetes mellitus with insu*01/28/2020 09/03/2021 Atrial fibrillation (HCC) [I48.91] 03/18/2023 Chronic anticoagulation [Z79.01] 08/03/2024 Encounter Status:Closed by VANESSA DE LA ROSA on 11/18/24 [facility] 08-03-2024 Note HNO ID: [id number] Author: JILLIAN MOJICA APRN.CRECHE ATTENDANT Service: ? Author Type: Nurse Specialist Type: Progress Notes Filed: 08/03/2024 14:46 Note Text: SUBJECTIVE: Shingrix Vaccine(1 of 2) Never done RSV Vaccine(1 - Risk 60-74 years 1-dose series) Never done Mammogram Screening due on 07/27/2016 Bone Density Screening due on 2018 DTaP,Tdap,Td Vaccine(2 - Td or Tdap) due on 07/13/2020 Colorectal Cancer Screening due on 06/26/2022 Diabetic Foot Exam due on 08/14/2023 Influenza Vaccine(1) due on 05/03/2024 HPI Barbara Allen is a 69 year old female. PMH significant for ACTIVE PROBLEM LIST Type 2 Diabetes Mellitus With Microalbuminuria, With Long-Term Current Use of Insulin (Hcc) Essential Hypertension Pure Hypercholesterolemia Esophageal Reflux Osteopenia Atrial Fibrillation (Hcc) Presents for routine follow-up visit. Followed by [facility] cardiology. Continues on Eliquis for atrial fibrillation. Has monitored carotid artery right, US completed per Ms. Allen. HTN: Without rpeort of headache, chest pain, palpitations, dyspnea, orthopnea, fatigue, and PND. Last 14 Encounter BP Readings: Date: BP: 08/03/2024 114/61 01/29/2024 128/64 02/15/2023 124/68 08/14/2022 130/72 02/12/2022 112/60 07/10/2021 122/78 05/19/2021 116/68 03/28/2021 124/78 12/23/2020 136/84 09/05/2020 148/86 05/26/2020 160/90 02/27/2020 140/86 01/28/2020 134/74 01/21/2020 144/82 Hyperlipidemia. Ms. Allen reports doing well on current therapy Her most recent lipid panels are: Cholesterol, Total (mg/dL) Date Value 07/22/2024 160 01/24/2024 143 12/16/2020 167 05/17/2020 198 HDL Cholesterol (mg/dL) Date Value 07/22/2024 53 01/24/2024 50 12/16/2020 51 05/17/2020 57 LDL Cholesterol (mg/dL) Date Value 07/22/2024 89 01/24/2024 77 12/16/2020 96 05/17/2020 123 Triglyceride (mg/dL) Date Value 07/22/2024 89 01/24/2024 78 12/16/2020 101 05/17/2020 89 DIABETES MELLITUS: Reports taking 22 units insulin at bedtime. Does not use CGM. Without report of excessive thirst or increased frequency of urination, chest pain or dyspnea , numbness, tingling or pain in extremities, new or unusual visual symptoms, low sugar/hypoglycemic reactions, weight loss/gain, lightheadedness/dizziness, and bowel changes/loose stools.Patient's last HgA1C was Hemoglobin A1C (%) Date Value 07/22/2024 8.9 01/24/2024 8.9 06/26/2021 6.9 12/16/2020 10.3 ) Declines foot exam today. States no numbness or tingling no sores or open skin on her feet. [facility], to have cataracts removed in 2024. Defers BMD for now. GERD well controlled on PPI. Review of Systems Constitutional: Negative. Cardiovascular: Negative for leg swelling. Endocrine: Negative. Objective BP 114/61 Pulse 65 Resp 16 Wt 111.6 kg (246 lb 0.5 oz) BMI 40.32 kg/m? Physical Exam Vitals and nursing note reviewed. Constitutional: General: She is not in acute distress. Appearance: Normal appearance. She is obese. HENT: Head: Normocephalic and atraumatic. Eyes: Conjunctiva/sclera: Conjunctivae normal. Neck: Thyroid: No thyromegaly. Vascular: Normal carotid pulses. No carotid bruit or JVD. Cardiovascular: Rate and Rhythm: Normal rate. Rhythm irregular. Pulses: Carotid pulses are 2+ on the right side and 3+ on the left side. Radial pulses are 2+ on the right side and 2+ on the left side. Heart sounds: Normal heart sounds. Comments: Prominent left carotid pulse Pulmonary: Effort: Pulmonary effort is normal. Breath sounds: Normal breath sounds. Abdominal: General: Bowel sounds are normal. Palpations: Abdomen is soft. Musculoskeletal: Right lower leg: Edema present. Left lower leg: Edema present. Skin: General: Skin is warm and dry. Neurological: General: No focal deficit present. Mental Status: She is alert and oriented to person, place, and time. ALLERGIES Allergen Reactions Lisinopril Cough Medications furosemide (LASIX) 40 mg tablet Take 1 tablet by mouth two times a day. felodipine ER (PLENDIL) 10 mg 24 hr tablet Take 2 tablets by mouth once daily. glimepiride (AMARYL) 4 mg tablet Take 1 tablet by mouth two times a day with meals. omeprazole (PRILOSEC) 20 mg capsule Take 1 capsule by mouth daily before breakfast. 1/2 hr before meal. insulin needles, DISPOSABLE, (BD INSULIN PEN NEEDLE UF) 31 gauge x 5/16" Use 1 new pen needle with each injection of insulin. 1 daily. Diagnosis: (E11.65, Z79.4) insulin glargine (LANTUS SOLOSTAR U-100 INSULIN) 100 unit/mL (3 mL) Inject 22-32 Units subcutaneously daily at bedtime. potassium chloride ER (KLOR-CON) 20 mEq tablet Take 1 tablet by mouth two times a day. simvastatin (ZOCOR) 40 mg tablet Take 1 tablet by mouth once daily. ferrous sulfate 325 mg (65 mg iron) tablet Take 1 tablet by mouth every other day. blood sugar diagnostic (ONETOUCH U (more content not included)... [facility] 08-03-2024 History of Present illness Narrative SUBJECTIVE: Shingrix Vaccine(1 of 2) Never done RSV Vaccine(1 - Risk 60-74 years 1-dose series) Never done Mammogram Screening due on 07/27/2016 Bone Density Screening due on 2018 DTaP,Tdap,Td Vaccine(2 - Td or Tdap) due on 07/13/2020 Colorectal Cancer Screening due on 06/26/2022 Diabetic Foot Exam due on 08/14/2023 Influenza Vaccine(1) due on 05/03/2024 HPI Barbara Allen is a 69 year old female. PMH significant for ACTIVE PROBLEM LIST Type 2 Diabetes Mellitus With Microalbuminuria, With Long-Term Current Use of Insulin (Hcc) Essential Hypertension Pure Hypercholesterolemia Esophageal Reflux Osteopenia Atrial Fibrillation (Hcc) Presents for routine follow-up visit. Followed by [facility] cardiology. Continues on Eliquis for atrial fibrillation. Has monitored carotid artery right, US completed per Ms. Allen. HTN: Without rpeort of headache, chest pain, palpitations, dyspnea, orthopnea, fatigue, and PND. Last 14 Encounter BP Readings: Date: BP: 08/03/2024 114/61 01/29/2024 128/64 02/15/2023 124/68 08/14/2022 130/72 02/12/2022 112/60 07/10/2021 122/78 05/19/2021 116/68 03/28/2021 124/78 12/23/2020 136/84 09/05/2020 148/86 05/26/2020 160/90 02/27/2020 140/86 01/28/2020 134/74 01/21/2020 144/82 Hyperlipidemia. Ms. Allen reports doing well on current therapy Her most recent lipid panels are: Cholesterol, Total (mg/dL) Date Value 07/22/2024 160 01/24/2024 143 12/16/2020 167 05/17/2020 198 HDL Cholesterol (mg/dL) Date Value 07/22/2024 53 01/24/2024 50 12/16/2020 51 05/17/2020 57 LDL Cholesterol (mg/dL) Date Value 07/22/2024 89 01/24/2024 77 12/16/2020 96 05/17/2020 123 Triglyceride (mg/dL) Date Value 07/22/2024 89 01/24/2024 78 12/16/2020 101 05/17/2020 89 DIABETES MELLITUS: Reports taking 22 units insulin at bedtime. Does not use CGM. Without report of excessive thirst or increased frequency of urination, chest pain or dyspnea , numbness, tingling or pain in extremities, new or unusual visual symptoms, low sugar/hypoglycemic reactions, weight loss/gain, lightheadedness/dizziness, and bowel changes/loose stools.Patient's last HgA1C was Hemoglobin A1C (%) Date Value 07/22/2024 8.9 01/24/2024 8.9 06/26/2021 6.9 12/16/2020 10.3 ) Declines foot exam today. States no numbness or tingling no sores or open skin on her feet. States she goes to [facility], to have cataracts removed in 2024. Defers BMD for now. GERD well controlled on PPI. Review of Systems Constitutional: Negative. Cardiovascular: Negative for leg swelling. Endocrine: Negative. Objective BP 114/61 Pulse 65 Resp 16 Wt 111.6 kg (246 lb 0.5 oz) BMI 40.32 kg/m Physical Exam Vitals and nursing note reviewed. Constitutional: General: She is not in acute distress. Appearance: Normal appearance. She is obese. HENT: Head: Normocephalic and atraumatic. Eyes: Conjunctiva/sclera: Conjunctivae normal. Neck: Thyroid: No thyromegaly. Vascular: Normal carotid pulses. No carotid bruit or JVD. Cardiovascular: Rate and Rhythm: Normal rate. Rhythm irregular. Pulses: Carotid pulses are 2+ on the right side and 3+ on the left side. Radial pulses are 2+ on the right side and 2+ on the left side. Heart sounds: Normal heart sounds. Comments: Prominent left carotid pulse Pulmonary: Effort: Pulmonary effort is normal. Breath sounds: Normal breath sounds. Abdominal: General: Bowel sounds are normal. Palpations: Abdomen is soft. Musculoskeletal: Right lower leg: Edema present. Left lower leg: Edema present. Skin: General: Skin is warm and dry. Neurological: General: No focal deficit present. Mental Status: She is alert and oriented to person, place, and time. ALLERGIES Allergen Reactions Lisinopril Cough Medications furosemide (LASIX) 40 mg tablet Take 1 tablet by mouth two times a day. felodipine ER (PLENDIL) 10 mg 24 hr tablet Take 2 tablets by mouth once daily. glimepiride (AMARYL) 4 mg tablet Take 1 tablet by mouth two times a day with meals. omeprazole (PRILOSEC) 20 mg capsule Take 1 capsule by mouth daily before breakfast. 1/2 hr before meal. insulin needles, DISPOSABLE, (BD INSULIN PEN NEEDLE UF) 31 gauge x 5/16" Use 1 new pen needle with each injection of insulin. 1 daily. Diagnosis: (E11.65, Z79.4) insulin glargine (LANTUS SOLOSTAR U-100 INSULIN) 100 unit/mL (3 mL) Inject 22-32 Units subcutaneously daily at bedtime. potassium chloride ER (KLOR-CON) 20 mEq tablet Take 1 tablet by mouth two times a day. simvastatin (ZOCOR) 40 mg tablet Take 1 tablet by mouth once daily. ferrous sulfate 325 mg (65 mg iron) tablet Take 1 tablet by mouth every other day. blood sugar diagnostic ([employer] ULTRA TEST) test strip Use as instructed FOR TESTING twice daily. Dx: E11.65, Z79.4, Insulin: YES ELIQUIS 5 mg tab(s) Take 5 mg by mouth twice daily. digoxin (LANOXIN) 125 mcg (0.125 mg) tablet Take 125 mcg by mouth once daily. hydrALAZINE (APRESOLINE) 25 mg tablet Take 25 mg by mouth three times daily. isosorbide mononitrate ER (IMDUR) 30 mg 24 hr tablet Take 30 mg by mouth once daily. carvedilol (COREG) 12.5 mg tablet TAKE 1 TABLET BY MOUTH TWICE A DAY WITH A MEAL OR FOOD Miscellaneous Medical Supply Jobst stockings 30 mm Hg Knee high (dispense 4 pairs). (I87.303) Stasis edema of both lower extremities Multivitamins chew Take 2 tablets daily. Blood-Glucose Meter (ACCU-CHEK KENNETH PLUS METER) 1 Each twice daily. And a s needed for symptoms of sugars too high or too low. DX: E11.65 CRANBERRY PAST MEDICAL HISTORY Diagnosis Date Abnormal Papanicolaou smear of vagina and vaginal HPV Allergic rhinitis, cause unspecified Arm fracture 07/2010 right Cervicitis and endocervicitis Esophageal reflux Morbid obesity (HCC) Pure hypercholesterolemia Type II or unspecified type diabetes mellitus without mention of complication, not stated as uncontrolled 05/01/2005 Unspecified essential hypertension 05/01/2005 Social History Tobacco Use Smoking status: Never Smokeless tobacco: Never Substance Use Topics Alcohol use: No Drug use: No Latest Ref Rng 08/08/2022 02/11/2023 01/24/2024 07/22/2024 WBC 3.70 - 11.00 k/uL 6.96 7.86 7.45 RBC 3.90 - 5.20 m/uL 4.30 4.38 4.26 Hemoglobin 11.5 - 15.5 g/dL 12.4 12.6 12.1 Hematocrit 36.0 - 46.0 % 39.3 38.7 36.9 MCV 80.0 - 100.0 fL 91.4 88.4 86.6 MCH 26.0 - 34.0 pg 28.8 28.8 28.4 MCHC 30.5 - 36.0 g/dL 31.6 32.6 32.8 RDW-CV 11.5 - 15.0 % 13.2 13.4 13.3 Platelet Count 150 - 400 k/uL 236 218 209 MPV 9.0 - 12.7 fL 11.1 10.2 10.0 Neut% % 67.3 Abs Neut (ANC) 1.45 - 7.50 k/uL 4.69 Lymph% % 19.5 Abs Lymph 1.00 - 4.00 k/uL 1.36 Towns% % 7.8 Abs Towns <0.87 k/uL 0.54 Eosin% % 3.9 Abs Eosin <0.46 k/uL 0.27 Baso% % 0.9 Abs Baso <0.11 k/uL 0.06 Immature Gran % % 0.6 IMMATURE GRANS (ABS) <0.10 k/uL 0.04 NRBC /100 WBC 0.0 Absolute nRBC <0.01 k/uL <0.01 <0.01 <0.01 DTYPE Auto Color Yellow Yellow Yellow Clarity Clear Cloudy ! Cloudy ! Glucose, Urine Negative Negative Negative Bilirubin, Urine Negative Negative Negative Ketones, Urine Negative Negative Negative Specific [place], Ur 1.005 - 1.030 1.017 1.013 Hemoglobin/Blood,Ur Negative Trace ! 1+ ! pH, Urine <8.5 6.0 7.5 Protein, Urine Negative 3+ ! 3+ ! Urobilinogen 0.2-1.0 EU/dL 0.2 EU/dL 0.2 EU/dL Nitrites Negative Positive ! Positive ! Leukest Negative 2+ ! 1+ ! WBC, Urine 0-5 /HPF >20 /HPF ! >20 /HPF ! RBC, Urine 0-2 /HPF 0-2 /HPF 6-10 /HPF ! Bacteria uL Negative uL >9,821 (H) >9,821 (H) Epithelial Cells /HPF Moderate Few Hyaline Cast 0 /LPF 1-3 /LPF ! 1-3 /LPF ! Protein, Total 6.3 - 8.0 g/dL 7.3 7.4 7.5 Albumin 3.9 - 4.9 g/dL 4.0 4.0 4.1 Calcium 8.5 - 10.2 mg/dL 9.5 9.6 9.6 Bilirubin, Total 0.2 - 1.3 mg/dL 0.4 0.6 0.5 Alkaline Phosphatase 34 - 123 U/L 116 123 122 AST 13 - 35 U/L 19 14 11 (L) ALT 7 - 38 U/L 15 8 8 Glucose 74 - 99 mg/dL 129 (H) 59 (L) 79 BUN 7 - 21 mg/dL 23 (H) 19 23 (H) Creatinine 0.58 - 0.96 mg/dL 0.95 0.85 0.84 Sodium 136 - 144 mmol/L 142 141 139 Potassium 3.7 - 5.1 mmol/L 4.9 3.6 (L) 3.9 Chloride 98 - 107 mmol/L 106 (H) 107 (H) 104 CO2 22 - 30 mmol/L 26 25 21 (L) Anion Gap 8 - 15 mmol/L 10 9 14 eGFR >=60 mL/min/1.73m 65 74 74 Cholesterol, Total <200 mg/dL 160 143 160 Triglyceride <150 mg/dL 95 78 89 HDL Cholesterol >39 mg/dL 49 50 53 Non HDL Cholesterol <130 mg/dL 111 93 107 Fasting Time hrs 12 12 12 VLDL Cholesterol <30 mg/dL 19 16 18 TC:HDL Ratio <5.10 3.27 2.86 3.02 LDL Cholesterol <100 mg/dL 92 77 89 LDL:HDL Ratio <2.54 1.88 1.54 1.68 Creatinine, Ur Random (UCRR) 20.0 - 300.0 mg/dL 84.5 115.0 45.9 Albumin, Urine Random mg/L 399.0 1,765.2 1,218.1 Albumin/Creat Ratio <30 mg/g 472 (H) 1,535 (H) 2,654 (H) Hemoglobin A1C 4.3 - 5.6 % 9.8 (H) 8.9 (H) 8.9 (H) Estimated Average Glucose mg/dL 235 209 209 TSH 0.270 - 4.200 mIU/L 2.190 3.430 8.150 (H) Vitamin D 25 Hydroxy 31.0 - 80.0 ng/mL 18.6 (L) 37.0 Magnesium 1.7 - 2.3 mg/dL 1.8 1.7 ASSESSMENT/PLAN: 1. Type 2 diabetes mellitus with microalbuminuria, with long-term current use of insulin (HCC) - ICD9: 250.40, 791.0, V58.67, ICD10: E11.29, R80.9, Z79.4 (primary diagnosis) Decreased control Increase insulin dose from 22 to 24 units at bedtime. Consider CGM - Blood glucose monitoring on a once a day schedule 2. Essential hypertension - ICD9: 401.9, ICD10: I10 controlled - Continue current medications - Encouraged sodium restriction, DASH or Mediterranean diet - Recommend regular aerobic exercise 3. Pure hypercholesterolemia - ICD9: 272.0, ICD10: E78.00 Recommend a plant based diet such as Mediterranean diet with plenty of vegetables, fruits,whole grains, fish, chicken, turkey or plant proteins and routine exercise such as walking Continue with current statin unchanged 4. Gastroesophageal reflux disease without esophagitis - ICD9: 530.81, ICD10: K21.9 - Endorse lifestyle modifications including losing weight, limiting caffeine, no meals three hours before sleep, and head of bed elevation - Continue treatment unchanged 5. Chronic anticoagulation - ICD9: V58.61, ICD10: Z79.01 6. Longstanding persistent atrial fibrillation (HCC) - ICD9: 427.31, ICD10: I48.11 Followed by [facility] 7. Acute cystitis with hematuria - ICD9: 595.0, ICD10: N30.01 - URINALYSIS WITH MICROSCOPIC, REFLEX CULTURE 8. Encounter for immunization - ICD9: V03.89, ICD10: Z23 - TDAP PRINTED PHARMACY INSTRUCTIONS - INFLUENZA VACCINE, PRSV FREE, AGE 65+ YR, HIGH DOSE, TRIVALENT (FLUZONE HIGH-DOSE) - SHINGRIX PRINTED PHARMACY INSTRUCTIONS 9. Screening for colon cancer - ICD9: V76.51, ICD10: Z12.11 - IMMUNOCHEMICAL FECAL OCCULT BLOOD TEST 10. UTI Macrobid x 7 days, recheck urine one month 6 mo follow up Rodrigo Sepulveda MD with labs Jillian Mojica APRN.CRECHE ATTENDANT Medical Decision Making: Problems: Moderate: 2+ stable chronic illnesses Data: Unique test(s) ordered: 3+ Risk: Moderate: Drug management Medical Decision Making Level: 4 - Moderate documented in this encounter [facility] 06-04-2024 Telephone encounter Note Pt returns call, gave information provided, pt voices understanding. [facility] 06-04-2024 Miscellaneous Notes Pt returns call, gave information provided, pt voices understanding. Phoned patient left message to return call and ask to speak to a nurse. There was a RX that went through for once daily from [facility]. I sent the one for twice daily so that would have enough if needs to take twice daily some days or if taking twice daily already. Check with patient how she is taking the med now The following approved medication requests have been transmitted electronically. Requested Prescriptions Signed Prescriptions Disp Refills furosemide (LASIX) 40 mg tablet 180 tablet 3 Sig: Take 1 tablet by mouth two times a day. Authorizing Provider: RODRIGO SEPULVEDA MD [facility] pharmacy calling asking to have directions on Furosemide 40 mg rx clarified. Rx say one tablet twice daily, in morning. Last rx that they processed was from [facility] and it was once daily. Can send new rx with new directions or can call. Please advise documented in this encounter [facility] 06-04-2024 Telephone encounter Note Phoned patient left message to return call and ask to speak to a nurse. [facility] 06-03-2024 Telephone encounter Note There was a RX that went through for once daily from [facility]. I sent the one for twice daily so that would have enough if needs to take twice daily some days or if taking twice daily already. Check with patient how she is taking the med now The following approved medication requests have been transmitted electronically. Requested Prescriptions Signed Prescriptions Disp Refills furosemide (LASIX) 40 mg tablet 180 tablet 3 Sig: Take 1 tablet by mouth two times a day. Authorizing Provider: RODRIGO SEPULVEDA MD [facility] 06-03-2024 Telephone encounter Note [facility] pharmacy calling asking to have directions on Furosemide 40 mg rx clarified. Rx say one tablet twice daily, in morning. Last rx that they processed was from [facility] and it was once daily. Can send new rx with new directions or can call. Please advise [facility] 05-25-2024 Telephone encounter Note The following approved medication requests have been transmitted electronically. Requested Prescriptions Pending Prescriptions Disp Refills furosemide (LASIX) 40 mg tablet Sig: Take 1 tablet by mouth two times a day. in morning felodipine ER (PLENDIL) 10 mg 24 hr tablet 180 tablet 3 Sig: Take 2 tablets by mouth once daily. glimepiride (AMARYL) 4 mg tablet 180 tablet 3 Sig: Take 1 tablet by mouth two times a day with meals. omeprazole (PRILOSEC) 20 mg capsule 90 capsule 3 Sig: Take 1 capsule by mouth daily before breakfast. 1/2 hr before meal. insulin needles, DISPOSABLE, (BD INSULIN PEN NEEDLE UF) 31 gauge x 5/16" 100 Each 3 Sig: Use 1 new pen needle with each injection of insulin. 1 daily. Diagnosis: (E11.65, Z79.4) Rodrigo Sepulveda MD [facility] 05-25-2024 Miscellaneous Notes The following approved medication requests have been transmitted electronically. Requested Prescriptions Pending Prescriptions Disp Refills furosemide (LASIX) 40 mg tablet Sig: Take 1 tablet by mouth two times a day. in morning felodipine ER (PLENDIL) 10 mg 24 hr tablet 180 tablet 3 Sig: Take 2 tablets by mouth once daily. glimepiride (AMARYL) 4 mg tablet 180 tablet 3 Sig: Take 1 tablet by mouth two times a day with meals. omeprazole (PRILOSEC) 20 mg capsule 90 capsule 3 Sig: Take 1 capsule by mouth daily before breakfast. 1/2 hr before meal. insulin needles, DISPOSABLE, (BD INSULIN PEN NEEDLE UF) 31 gauge x 5/16" 100 Each 3 Sig: Use 1 new pen needle with each injection of insulin. 1 daily. Diagnosis: (E11.65, Z79.4) Rodrigo Sepulveda MD Patient has been identified by name and date of : Yes Patient phones for refill(s): Requested Prescriptions Pending Prescriptions Disp Refills furosemide (LASIX) 40 mg tablet Sig: Take 1 tablet by mouth two times a day. in morning felodipine ER (PLENDIL) 10 mg 24 hr tablet 180 tablet 3 Sig: Take 2 tablets by mouth once daily. glimepiride (AMARYL) 4 mg tablet 180 tablet 3 Sig: Take 1 tablet by mouth two times a day with meals. omeprazole (PRILOSEC) 20 mg capsule 90 capsule 3 Sig: Take 1 capsule by mouth daily before breakfast. 1/2 hr before meal. insulin needles, DISPOSABLE, (BD INSULIN PEN NEEDLE UF) 31 gauge x 5/16" 100 Each 3 Sig: Use 1 new pen needle with each injection of insulin. 1 daily. Diagnosis: (E11.65, Z79.4) Date of last office visit in primary care: 01/29/2024 Date of next office visit in primary care: 08/03/2024 Please advise. Thank you. Alis Baird LPN. documented in this encounter [facility] 05-25-2024 Telephone encounter Note Patient has been identified by name and date of : Yes Patient phones for refill(s): Requested Prescriptions Pending Prescriptions Disp Refills furosemide (LASIX) 40 mg tablet Sig: Take 1 tablet by mouth two times a day. in morning felodipine ER (PLENDIL) 10 mg 24 hr tablet 180 tablet 3 Sig: Take 2 tablets by mouth once daily. glimepiride (AMARYL) 4 mg tablet 180 tablet 3 Sig: Take 1 tablet by mouth two times a day with meals. omeprazole (PRILOSEC) 20 mg capsule 90 capsule 3 Sig: Take 1 capsule by mouth daily before breakfast. 1/2 hr before meal. insulin needles, DISPOSABLE, (BD INSULIN PEN NEEDLE UF) 31 gauge x 5/16" 100 Each 3 Sig: Use 1 new pen needle with each injection of insulin. 1 daily. Diagnosis: (E11.65, Z79.4) Date of last office visit in primary care: 01/29/2024 Date of next office visit in primary care: 08/03/2024 Please advise. Thank you. Alis Baird LPN. [facility] 01-29-2024 Instructions Rodrigo Sepulveda MD - 01/29/2024 2:53 PM EDT Vitamin D3 2000 to 4000 units daily (can start with 2000 to make sure tolerated well then increase to 4000 units). Discuss with cardiology if okay to add medication like losartan for kidney protection (note that has microalbuminuria and cost of Jardiance too much). Screening schedule The following prevention plan is recommended: RSV Vaccine(1 - 1-dose 60+ series) Never done Mammogram Screening due on 07/27/2016 Bone Density Screening due on 2018 Colorectal Cancer Screening due on 06/26/2022 Covid-19 Vaccine( season) due on 05/03/2023 Diabetic Foot Exam due on 08/14/2023 Advance Directive Discussion due on 09/02/2023 Behavioral Health Screening Never done WHAT YOU CAN DO TO PREVENT FALLS Many falls can be prevented. By making some changes, you can lower your chances of falling. Four things YOU can do to prevent falls for you* and your caregiver 1. Begin a regular exercise program Exercise is one of the most important ways to lower your chances of falling. It makes you stronger and helps you feel better. Exercises that improve balance and coordination (like Figueroa Chi) are the most helpful. Lack of exercise leads to weakness and increases your chances of falling. Ask your doctor or health care provider about the best type of exercise program for you. 2. Have your health care provider review your medicines Have your doctor or pharmacist review all the medicines you take, even zhja-mzv-vjejtwm medicines. As you get older, the way medicines work in your body can change. Some medicines, or combinations of medicines, can make you sleepy or dizzy and can cause you to fall. 3. Have your vision checked Have your eyes checked by an eye doctor at least once a year. You may be wearing the wrong glasses or have a condition like glaucoma or cataracts that limits your vision. Poor vision can increase your chances of falling. 4. Make your home safer About half of all falls happen at home. To make your home safer: Remove things you can trip over (like papers, books, clothes, and shoes) from stairs and places where you walk. Remove small throw rugs or use double-sided tape to keep the rugs from slipping. Keep items you use often in cabinets you can reach easily without using a step stool. Have grab bars put in next to your toilet and in the tub or shower. Use non-slip mats in the bathtub and on shower floors. Improve the lighting in your home. As you get older, you need brighter lights to see well. Hang light-weight curtains or shades to reduce glare. Have handrails and lights put in on all staircases. Wear shoes both inside and outside the house. Avoid going barefoot or wearing slippers. For more information, contact: Centers for Disease Control and Prevention www.cdc.gov/injury * This information may not apply if you have certain medical conditions. BONE MINERAL DENSITY PATIENT INSTRUCTIONS ======= Bone mineral density testing measures the amount of calcium in certain parts of your bones. This information determines how strong your bones are. The test is used to detect osteoporosis, a disease in which the bone's mineral content and density are low, increasing a person's risk of fractures. The lumbar spine (lower back) and the hip are the skeletal sites usually examined. For the test, remember that: 1. You cannot take this test if you are . 2. Eat a normal diet on the day of the test. 3. Take your medications as you normally would. 4. DO NOT take calcium supplements (such as Tums) for 24 hours before the test. 5. On the day of the test, leave valuables (jewelry or credit cards) at home. 6. The test should be performed prior to oral, rectal or IV contrast studies, or at least 7 days after any of these studies. For the test, you may be asked to wear a hospital gown. You will lie on your back, on a padded table, in a comfortable position. Generally, you can resume your usual activities immediately. documented in this encounter [facility] 01-29-2024 History of Present illness Narrative Images from the original note were not included. This note was created using [employer]. Subjective Barbara Allen is a 68 year old female. Patient presents with: Established Patient: Follow up with labs prior SUBJECTIVE: Barbara Allen is a 68 year old year old lady here today for Medicare Wellness and follow up appointment for review of medical conditions. Did feel shaky when came in for fasting labs 01/23. Sugar control otherwise controlled. Not usually too low. Noted issues with insulin refill at [facility]--won't break up boxes. Stable on current meds overall. See assessment and plan for other issues addressed. PAST MEDICAL HISTORY Diagnosis Date Abnormal Papanicolaou smear of vagina and vaginal HPV Allergic rhinitis, cause unspecified Arm fracture 07/2010 right Cervicitis and endocervicitis Esophageal reflux Morbid obesity (HCC) Pure hypercholesterolemia Type II or unspecified type diabetes mellitus without mention of complication, not stated as uncontrolled 05/01/2005 Unspecified essential hypertension 05/01/2005 Current Outpatient Medications Medication Sig potassium chloride ER (KLOR-CON) 20 mEq tablet Take 1 tablet by mouth two times a day. simvastatin (ZOCOR) 40 mg tablet Take 1 tablet by mouth once daily. felodipine ER (PLENDIL) 10 mg 24 hr tablet Take 2 tablets by mouth once daily. glimepiride (AMARYL) 4 mg tablet Take 1 tablet by mouth two times a day with meals. omeprazole (PRILOSEC) 20 mg capsule Take 1 capsule by mouth daily before breakfast. 1/2 hr before meal. ferrous sulfate 325 mg (65 mg iron) tablet Take 1 tablet by mouth every other day. blood sugar diagnostic ([employer] ULTRA TEST) test strip Use as instructed FOR TESTING twice daily. Dx: E11.65, Z79.4, Insulin: YES insulin needles, DISPOSABLE, (BD INSULIN PEN NEEDLE UF) 31 gauge x 5/16" Use 1 new pen needle with each injection of insulin. 1 daily. Diagnosis: (E11.65, Z79.4) furosemide (LASIX) 40 mg tablet Take 1 tablet by mouth twice daily. in morning ELIQUIS 5 mg tab(s) Take 5 mg by mouth twice daily. digoxin (LANOXIN) 125 mcg (0.125 mg) tablet Take 125 mcg by mouth once daily. hydrALAZINE (APRESOLINE) 25 mg tablet Take 25 mg by mouth three times daily. isosorbide mononitrate ER (IMDUR) 30 mg 24 hr tablet Take 30 mg by mouth once daily. carvedilol (COREG) 12.5 mg tablet TAKE 1 TABLET BY MOUTH TWICE A DAY WITH A MEAL OR FOOD Miscellaneous [employer] Jobst stockings 30 mm Hg Knee high (dispense 4 pairs). (I87.303) Stasis edema of both lower extremities Multivitamins chew Take 2 tablets daily. insulin glargine (LANTUS SOLOSTAR U-100 INSULIN) 100 unit/mL (3 mL) Inject 22-32 Units subcutaneously daily at bedtime. Blood-Glucose Meter (ACCU-CHEK KENNETH PLUS METER) 1 Each twice daily. And a s needed for symptoms of sugars too high or too low. DX: E11.65 CRANBERRY No current facility-administered medications for this visit. Review of Systems Objective BP 128/64 Pulse 87 Temp (!) 35.8 C (96.5 F) Resp 18 Wt 109.3 kg (241 lb) SpO2 97% BMI 39.49 kg/m Last 5 Encounter Wt Readings: Date: Wt: 01/29/2024 109.3 kg (241 lb) 02/15/2023 109.3 kg (241 lb) 08/14/2022 106.1 kg (234 lb) 02/12/2022 109.3 kg (241 lb) 07/10/2021 113.9 kg (251 lb) No waist measurement recorded Estimated body mass index is 39.49 kg/m as calculated from the following: Height as of 07/27/15: 166.4 cm (5' 5.5"). Weight as of this encounter: 109.3 kg (241 lb). Last 5 Encounter BP Readings: Date: BP: 01/29/2024 128/64 02/15/2023 124/68 08/14/2022 130/72 02/12/2022 112/60 07/10/2021 122/78 Physical Exam Vitals reviewed. Constitutional: Appearance: Normal appearance. She is well-developed. She is obese. HENT: Head: Normocephalic and atraumatic. Right Ear: Tympanic membrane, ear canal and external ear normal. Left Ear: Tympanic membrane, ear canal and external ear normal. Nose: Nose normal. Mouth/Throat: Mouth: Mucous membranes are moist. Pharynx: Oropharynx is clear. Eyes: Conjunctiva/sclera: Conjunctivae normal. Pupils: Pupils are equal, round, and reactive to light. Neck: Thyroid: No thyromegaly. Vascular: No carotid bruit. Cardiovascular: Rate and Rhythm: Normal rate. Rhythm irregularly irregular. Pulses: Normal pulses. Heart sounds: Normal heart sounds. No murmur heard. No friction rub. No gallop. Pulmonary: Effort: Pulmonary effort is normal. Breath sounds: Normal breath sounds. Abdominal: General: Bowel sounds are normal. There is no distension. Palpations: Abdomen is soft. There is no mass. Tenderness: There is no abdominal tenderness. Musculoskeletal: General: No deformity. Normal range of motion. Right lower leg: Edema (wearing support stockings) present. Left lower leg: Edema (wearing support stockings) present. Lymphadenopathy: Cervical: No cervical adenopathy. Skin: General: Skin is warm and dry. Coloration: Skin is not jaundiced or pale. Findings: No rash. Neurological: General: No focal deficit present. Mental Status: She is alert and oriented to person, place, and time. Cranial Nerves: No cranial nerve deficit. Sensory: No sensory deficit. Motor: No abnormal muscle tone. Coordination: Coordination normal. Gait: Gait abnormal (antalgic). Deep Tendon Reflexes: Reflexes normal. Psychiatric: Mood and Affect: Mood normal. Behavior: Behavior normal. Thought Content: Thought content normal. Judgment: Judgment normal. Latest Ref Rn 02/07/2022 08/08/2022 02/11/2023 01/24/2024 WBC 3.70 - 11.00 k/uL 6.33 6.63 6.96 7.86 RBC 3.90 - 5.20 m/uL 4.22 4.42 4.30 4.38 Hemoglobin 11.5 - 15.5 g/dL 12.2 13.1 12.4 12.6 Hematocrit 36.0 - 46.0 % 38.7 41.1 39.3 38.7 MCV 80.0 - 100.0 fL 91.7 93.0 91.4 88.4 MCH 26.0 - 34.0 pg 28.9 29.6 28.8 28.8 MCHC 30.5 - 36.0 g/dL 31.5 31.9 31.6 32.6 RDW-CV 11.5 - 15.0 % 14.5 13.7 13.2 13.4 Platelet Count 150 - 400 k/uL 223 250 236 218 MPV 9.0 - 12.7 fL 11.5 11.2 11.1 10.2 Neut% % 67.3 Abs Neut (ANC) 1.45 - 7.50 k/uL 4.69 Lymph% % 19.5 Abs Lymph 1.00 - 4.00 k/uL 1.36 Towns% % 7.8 Abs Towns <0.87 k/uL 0.54 Eosin% % 3.9 Abs Eosin <0.46 k/uL 0.27 Baso% % 0.9 Abs Baso <0.11 k/uL 0.06 Immature Gran % % 0.6 IMMATURE GRANS (ABS) <0.10 k/uL 0.04 NRBC /100 WBC 0.0 Absolute nRBC <0.01 k/uL <0.01 <0.01 <0.01 <0.01 DTYPE Auto Color Yellow Yellow Clarity Clear Cloudy ! Glucose, Urine Negative Negative Bilirubin, Urine Negative Negative Ketones, Urine Negative Negative Specific [place], Ur 1.005 - 1.030 1.017 Hemoglobin/Blood,Ur Negative Trace ! pH, Urine <8.5 6.0 Protein, Urine Negative 3+ ! Urobilinogen 0.2-1.0 EU/dL 0.2 EU/dL Nitrites Negative Positive ! Leukest Negative 2+ ! WBC, Urine 0-5 /HPF >20 /HPF ! RBC, Urine 0-2 /HPF 0-2 /HPF Bacteria uL Negative uL >9,821 (H) Epithelial Cells /HPF Moderate Hyaline Cast 0 /LPF 1-3 /LPF ! Protein, Total 6.3 - 8.0 g/dL 8.0 7.3 7.3 7.4 Albumin 3.9 - 4.9 g/dL 4.4 3.8 (L) 4.0 4.0 Calcium 8.5 - 10.2 mg/dL 9.5 9.1 9.5 9.6 Bilirubin, Total 0.2 - 1.3 mg/dL 0.6 0.5 0.4 0.6 Alkaline Phosphatase 34 - 123 U/L 138 (H) 115 116 123 AST 13 - 35 U/L 24 20 19 14 ALT 7 - 38 U/L 22 14 15 8 Glucose 74 - 99 mg/dL 191 (H) 122 (H) 129 (H) 59 (L) BUN 7 - 21 mg/dL 32 (H) 21 23 (H) 19 Creatinine 0.58 - 0.96 mg/dL 1.20 (H) 0.98 (H) 0.95 0.85 Sodium 136 - 144 mmol/L 140 143 142 141 Potassium 3.7 - 5.1 mmol/L 4.5 4.0 4.9 3.6 (L) Chloride 97 - 105 mmol/L 100 103 106 (H) 107 (H) CO2 22 - 30 mmol/L 29 28 26 25 Anion Gap 9 - 18 mmol/L 11 12 10 9 eGFR >=60 mL/min/1.73m 49 (L) 63 65 74 Cholesterol, Total <200 mg/dL 163 160 143 Triglyceride <150 mg/dL 79 95 78 HDL Cholesterol >39 mg/dL 60 49 50 Non HDL Cholesterol <130 mg/dL 103 111 93 Fasting Time hrs 12 12 12 VLDL Cholesterol <30 mg/dL 16 19 16 TC:HDL Ratio <5.10 2.72 3.27 2.86 LDL Cholesterol <100 mg/dL 87 92 77 LDL:HDL Ratio <2.54 1.45 1.88 1.54 Creatinine, Ur Random (UCRR) 20.0 - 300.0 mg/dL 68.2 84.5 115.0 Albumin, Urine Random mg/L 220.7 399.0 1,765.2 Albumin/Creat Ratio <30 mg/g 324 (H) 472 (H) 1,535 (H) Hemoglobin A1C 4.3 - 5.6 % 8.6 (H) 7.6 (H) 9.8 (H) 8.9 (H) Estimated Average Glucose mg/dL 200 171 235 209 TSH 0.270 - 4.200 mIU/L 4.440 (H) 3.520 2.190 3.430 Free T4 0.9 - 1.7 ng/dL 1.8 (H) 1.4 Free T3 2.3 - 4.1 pg/mL 2.0 (L) Vitamin D 25 Hydroxy 31.0 - 80.0 ng/mL 35.4 18.6 (L) Magnesium 1.7 - 2.3 mg/dL 1.8 Legend: (H) High (L) Low ! Abnormal Assessment and Plan See assessment and plan for other issues addressed. Barbara Allen is a 68 year old female here for a Medicare wellness visit. Medicare Health Risk Assessment General Health Good Exercise: Minutes/Day Patient declined Exercise: Days/Week Patient declined Alcohol: Daily Use Never Alcohol: Drinks/Day Patient does not drink Alcohol: 6 or more drinks Never Feel off balance No Concerns: Teeth/Dentures No Concerns: Sexual function No Troubled by feelings None of the above Frequency: Eating healthy diet Several days ADLs requiring help None of the above Safety precautions in home/vehicle Yes Smoke, vape, chews tobacco No Difficulty hearing No Difficulty seeing Yes (Has cataracts needs to get taken care of) Current Providers Specialists: I have reviewed specialist-related care of the patient in the medical record. Outside specialists seen: [facility] (ANEL Hutchins Medical/Family history review Reviewed and updated problem list, medical/surgical/family/social history, medications, and allergies. Opioid use review Opioid Medications (last 90 days) No data to display Depression screening Depression Screening PHQ-2 Score 02/15/2023 0 Depression screening tool completed and reviewed. Based on score and interview, patient is not at risk for depression. Screening tool discussed with patient, and I recommended no further intervention at this time. Cognitive screening Mini Cog Score: 3 Cognitive screening reviewed and No further action needed (score 3-5). Functional Observation Was the patient's Timed Up & Go test unsteady or ? 12 seconds? No Advance Care Planning Surrogate decision maker and/or advance care plan documented Does have HCDPOA and LW; surrogate decision maker Martínez Allen (son) Measurements BP 128/64 Pulse 87 Temp 96.5 Resp 18 Wt 241 lb (109.3kg) SpO2 97% Vision Screening: Follows with optometry/ophthalmology Assessment/Plan Medicare annual wellness visit, subsequent () - Counseled on healthy diet and regular exercise - Fall avoidance information provided - Personalized prevention plan provided See additional concerns above. Encounter Diagnosis ICD-10-CM 1. Medicare annual wellness visit, subsequent Z 2. Controlled type 2 diabetes mellitus with microalbuminuria, with long-term current use of insulin ([facility]) E11.29 insulin glargine (LANTUS SOLOSTAR U-100 INSULIN) 100 unit/mL (3 mL) R80.9 insulin needles, DISPOSABLE, (BD INSULIN PEN NEEDLE UF) 31 gauge x 5/16" Z79.4 Improved control.Protein spilling discussed. Need to control sugas.BP and lipids. MOnitor renal fucntion.Followup with kidney specialist as indicated 3. Pure hypercholesterolemia E78.00 Controlled. Continue prsent management 4. Vitamin D deficiency E55.9 Level really low again. Needs to take supplement routinely, Adjust dose as indicated on labs 5. Screening for osteoporosis Z13.820 DXA-AXIAL SKELETON BD DXA TRABECULAR BONE SCORE (TBS) 6. Asymptomatic menopause Z78.0 DXA-AXIAL SKELETON BD DXA TRABECULAR BONE SCORE (TBS) 7. Encounter for immunization Z23 RSV PRINTED PHARMACY INSTRUCTIONS Patient here for yearly exam and follow up. Above issues addressed with patient. Patient involved in shared decision making for management of medical issues. History and medications reviewed. Epic updated as needed Refills taken care of and meds adjusted as indicated after reviewed history, exam and labs. Health Maintenance reviewed. Updated record and/or ordered tests as recorded. Encouraged on efforts at healthy diet and regular exercise and adequate sleep. Rodrigo Sepulveda MD documented in this encounter [facility] 01-23-2024 Telephone encounter Note The following approved medication requests have been transmitted electronically. Requested Prescriptions Signed Prescriptions Disp Refills potassium chloride ER (KLOR-CON) 20 mEq tablet 180 tablet 2 Sig: Take 1 tablet by mouth two times a day. Authorizing Provider: RODRIGO SEPULVEDA MD [facility] 01-23-2024 Miscellaneous Notes The following approved medication requests have been transmitted electronically. Requested Prescriptions Signed Prescriptions Disp Refills potassium chloride ER (KLOR-CON) 20 mEq tablet 180 tablet 2 Sig: Take 1 tablet by mouth two times a day. Authorizing Provider: RODRIGO SEPULVEDA MD Patient has been identified by name and date of : Yes, Provider Derick Date 01/23/24 Time 10:08am Patient phones for refill(s): Requested Prescriptions Pending Prescriptions Disp Refills potassium chloride ER (KLOR-CON) 20 mEq tablet 180 tablet 2 Sig: Take 1 tablet by mouth two times a day. Date of last office visit in primary care: 02/15/2023 Date of next office visit in primary care: 01/29/2024 Please advise. Thank you. Pepper Sharma LPN. documented in this encounter [facility] 01-23-2024 Telephone encounter Note Patient has been identified by name and date of : Yes, Provider Derick Date 01/23/24 Time 10:08am Patient phones for refill(s): Requested Prescriptions Pending Prescriptions Disp Refills potassium chloride ER (KLOR-CON) 20 mEq tablet 180 tablet 2 Sig: Take 1 tablet by mouth two times a day. Date of last office visit in primary care: 02/15/2023 Date of next office visit in primary care: 01/29/2024 Please advise. Thank you. Pepper Sharma LPN. [facility] 01-01-2024 Telephone encounter Note Talked to Patient, Simvastatin Rx was sent to [facility] 12/06/2023 for 90 tablets, 3 refills, Patient will call mail order pharmacy. Alis Baird LPN [facility] 01-01-2024 Miscellaneous Notes Talked to Patient, Simvastatin Rx was sent to [facility] 12/06/2023 for 90 tablets, 3 refills, Patient will call mail order pharmacy. Alis Baird LPN documented in this encounter [facility] 12-30-2023 Telephone encounter Note TC to patient who verbalized understanding of below. No further questions at this time. NAHOMY Lugo [facility] 12-30-2023 Miscellaneous Notes TC to patient who verbalized understanding of below. No further questions at this time. NAHOMY Lugo Noted. Not sure why no labs on file. Labs ordered now. I filed standing orders so available every 6 months. Included urine for follow up on albuminuria (leaking protein through the kidneys) to see whether worsening or improving. Also TSH since was elevated in the past Pt came in this morning to get labs but there are no labs in her chart. Pt says Derick usually has her get labs before her appts and her next appt is next Sat. 01/28. I told pt we could contact her if labs are needed before her appt. Please review and advise. Thank you, Magali Reyes documented in this encounter [facility] 12-27-2023 Telephone encounter Note Noted. Not sure why no labs on file. Labs ordered now. I filed standing orders so available every 6 months. Included urine for follow up on albuminuria (leaking protein through the kidneys) to see whether worsening or improving. Also TSH since was elevated in the past [facility] 12-26-2023 History of Present illness Narrative Primary Care Pharmacy Panel Management This patient has been identified through panel management efforts by the primary care pharmacy team. Patient appears to be good candidate for PharmD referral. She has upcoming appt with PCP on 01/28 --> will reach out to PCP to suggest discussing PharmD referral at visit. Cristal Pratt RPh documented in this encounter [facility] 12-24-2023 Telephone encounter Note Pt came in this morning to get labs but there are no labs in her chart. Pt says Derick usually has her get labs before her appts and her next appt is next 01/28. I told pt we could contact her if labs are needed before her appt. Please review and advise. Thank you, Magali Reyes [facility] 12-12-2023 Miscellaneous Notes Patient calling asking for a 30 day supply Lantus to [facility] please. Pending rx Please advise Patient has been identified by name and date of : Patient phones for refill(s): Requested Prescriptions Pending Prescriptions Disp Refills insulin glargine (LANTUS SOLOSTAR U-100 INSULIN) 100 unit/mL (3 mL) 5 mL 0 Sig: Inject 22 Units subcutaneously daily at bedtime. Date of last office visit in primary care: 02/15/2023 Date of next office visit in primary care: 01/29/2024 Please advise. Thank you. Yasmeen Whaltey LPN. documented in this encounter [facility] 12-06-2023 Miscellaneous Notes Patient has been identified by name and date of : Yes, Provider Dr. Sepulveda Date 12/06/23 Time 10:59 am Pharmacy phones for refill(s): Requested Prescriptions Pending Prescriptions Disp Refills simvastatin (ZOCOR) 40 mg tablet 90 tablet 3 Sig: Take 1 tablet by mouth once daily. Date of last office visit in primary care: 02/15/2023 Date of next office visit in primary care: 01/29/2024 No call back needed. Thank you. Bailey Thornton LPN. documented in this encounter [facility] 10-09-2023 Miscellaneous Notes Patient calls to request a new prescription be sent to [facility] for Lantus insulin. Patient requests prescription be sent for 30 days. Current prescription is a supply of 68 days and costs almost the same as the 90 day supply. Pended for review. Alexandra Mondragon, RN documented in this encounter [facility] 10-02-2023 Miscellaneous Notes Patient has been identified by name and date of : Yes Patient phones for refill(s): Requested Prescriptions Pending Prescriptions Disp Refills insulin glargine (LANTUS SOLOSTAR U-100 INSULIN) 100 unit/mL (3 mL) 5 Each 2 Sig: Inject 22 Units subcutaneously daily at bedtime. Date of last office visit in primary care: 02/15/2023 Date of next office visit in primary care: 01/29/2024 Please advise. Thank you. Alis Baird LPN. documented in this encounter [facility] 06-18-2023 Miscellaneous Notes Faxed OV note from 08/14/22 along with the forms. Minnie Beckford LPN Form was signed and faxed on 06/03/2023 but office notes were not included. Last office visit 02/15/2023 did not mention usage of O2. I think this was taken care of--I signed to form O2 order received from [facility]. D/t patient's insurance change, patient needs new order and CALLIE note faxed to [phone] Sepulveda. Form taken to Dr. Sepulveda nurse station. Candace Turcios MA documented in this encounter [facility] 06-02-2023 History of Present illness Narrative POPULATION HEALTH NAVIGATION OUTREACH Action/I [employer] Gaps Outreach LAST OUTREACH: NA Patient asks for Mammogram screening to be removed and no more reminder calls to have done. Spoke with patient Patient asked the Eye exam scheduled for 06/07/2023 be cancelled, due to insurance not covering a medical facility. Patient also plans to discuss with Primary Care Provider about removing Mammogram screening from the Health Maintenance Due list. Patient states she does not want to have done and would like it removed to avoid reminder calls to schedule. Last OFFICE VISIT: 02/15/2023 RTC INDICATED in 6 mos for a follow up visit around 08/17/2023 Next OFFICE VISIT: Follow up visit scheduled for 08/20/2023 Next 5 Appointments Date and Time Provider Department Dept Phone 08/20/2023 1:40 PM Jillian Mojica [facility] [phone] Mammogram Screening due on 07/27/2016 - declined, asked to have taken off the list Dilated Retinal Exam due on 04/16/2022 - canceled upcoming visit Colorectal Cancer Screening due on 06/26/2022 - has not had a chance to complete Influenza Vaccine(1) due on 05/03/2023 - will discuss with PCP HbA1C due on 05/14/2023 - will discuss with PCP Encounter Closed. Patient Identified by Name and : YES, via phone Outreach Outcome/Action Spoke to patient / parent / legal guardian: Patient declined Did you use a PCP flex slot to schedule this appointment? N/A Reason for Outreach Care Gap or Scheduling/Wellness visits Payer: Payor: [employer] MEDICARE / Plan: Gen9 PLUS / Product Type: HMO / Care Gap Reviewed:: Breast Cancer screening Colorectal Cancer Screening Diabetic Eye Exam HBA1C Reminder: Reminder note to check Health Maintenance for items below Health Maintenance items due: Hepatitis B Vaccine(1 of 3 - Risk 3-dose series) Never done Mammogram Screening due on 07/27/2016 Dilated Retinal Exam due on 04/16/2022 Colorectal Cancer Screening due on 06/26/2022 Covid-19 Vaccine(3 - Mixed Product series) due on 12/13/2022 Influenza Vaccine(1) due on 05/03/2023 HbA1C due on 05/14/2023 Navigation Signature: Jessica Barajas MA June 02, 2023 1:33 PM documented in this encounter [facility] 03-08-2023 Miscellaneous Notes Patient has been identified by name and date of : Yes Patient phones for refill(s): Requested Prescriptions Pending Prescriptions Disp Refills insulin glargine (LANTUS SOLOSTAR U-100 INSULIN) 100 unit/mL (3 mL) 5 Each 2 Sig: Inject 22 Units subcutaneously daily at bedtime. Date of last office visit in primary care: 02/15/23 Last 2 Encounter Wt Readings: Date: Wt: 02/15/2023 109.3 kg (241 lb) 08/14/2022 106.1 kg (234 lb) Previous labs/tests for medication: Not applicable Please advise. Thank you. Indira Mejia LPN documented in this encounter [facility] 02-15-2023 History of Present illness Narrative This note was created using Doujiaoriter. Subjective Barbara Allen is a 67 year old female. Patient presents with: F/U 6 months SUBJECTIVE: Barbara Allen is a 67 year old year old lady here today for 6 month follow up appointment for review of medical conditions. Doing well overall. Sugars went up some because of winter and not eating as well with cost of meds. Limited income. Also cost of food. Noted that pharmacy has no more refills on meds that were filled in June. Discussed CGM--will consider. Will get more active and eat better as usual in summer and expect HgA1C to come back down as before. Has HCDPOA and LW--Son is surrogate decision maker PAST MEDICAL HISTORY Diagnosis Date Abnormal Papanicolaou smear of vagina and vaginal HPV Allergic rhinitis, cause unspecified Arm fracture 07/2010 right Cervicitis and endocervicitis Esophageal reflux Morbid obesity (HCC) Pure hypercholesterolemia Type II or unspecified type diabetes mellitus without mention of complication, not stated as uncontrolled 05/01/2005 Unspecified essential hypertension 05/01/2005 Current Outpatient Medications Medication Sig blood sugar diagnostic ([employer] ULTRA TEST) test strip Use as instructed FOR TESTING twice daily. Dx: E11.65, Z79.4, Insulin: YES Blood-Glucose Meter (ACCU-CHEK KENNETH PLUS METER) 1 Each twice daily. And a s needed for symptoms of sugars too high or too low. DX: E11.65 potassium chloride ER (KLOR-CON) 20 mEq tablet Take 1 tablet by mouth twice daily. insulin needles, DISPOSABLE, (BD INSULIN PEN NEEDLE UF) 31 gauge x 5/16" Use 1 new pen needle with each injection of insulin. 1 daily. Diagnosis: (E11.65, Z79.4) insulin glargine (LANTUS SOLOSTAR U-100 INSULIN) 100 unit/mL (3 mL) Inject 22 Units subcutaneously daily at bedtime. simvastatin (ZOCOR) 40 mg tablet Take 1 tablet by mouth once daily. felodipine ER (PLENDIL) 10 mg 24 hr tablet Take 2 tablets by mouth once daily. ferrous sulfate 325 mg (65 mg iron) tablet Take 1 tablet by mouth every other day. glimepiride (AMARYL) 4 mg tablet Take 1 tablet by mouth twice daily with meals. omeprazole (PRILOSEC) 20 mg capsule Take 1 capsule by mouth daily before breakfast. 1/2 hr before meal. furosemide (LASIX) 40 mg tablet Take 1 tablet by mouth twice daily. in morning ELIQUIS 5 mg tab(s) Take 5 mg by mouth twice daily. digoxin (LANOXIN) 125 mcg (0.125 mg) tablet Take 125 mcg by mouth once daily. hydrALAZINE (APRESOLINE) 25 mg tablet Take 25 mg by mouth three times daily. isosorbide mononitrate ER (IMDUR) 30 mg 24 hr tablet Take 30 mg by mouth once daily. carvedilol (COREG) 12.5 mg tablet TAKE 1 TABLET BY MOUTH TWICE A DAY WITH A MEAL OR FOOD CRANBERRY [employer] Jobst stockings 30 mm Hg Knee high (dispense 4 pairs). (I87.303) Stasis edema of both lower extremities Multivitamins chew Take 2 tablets daily. Lancets lancets Test blood sugar(s) 2 times daily. Dx: Type 2 DM - Uncontrolled E11.65 Insulin: Yes No current facility-administered medications for this visit. Review of Systems Objective BP 124/68 Pulse 85 Temp 36.6 C (97.8 F) Resp 18 Wt 109.3 kg (241 lb) SpO2 96% BMI 39.49 kg/m Physical Exam Constitutional: Appearance: Normal appearance. She is obese. HENT: Head: Normocephalic. Eyes: Conjunctiva/sclera: Conjunctivae normal. Cardiovascular: Rate and Rhythm: Normal rate. Rhythm irregularly irregular. Heart sounds: Normal heart sounds. Pulmonary: Effort: Pulmonary effort is normal. Breath sounds: Normal breath sounds. Skin: General: Skin is warm and dry. Neurological: General: No focal deficit present. Mental Status: She is alert and oriented to person, place, and time. Psychiatric: Mood and Affect: Mood normal. Behavior: Behavior normal. Thought Content: Thought content normal. Judgment: Judgment normal. Assessment and Plan Encounter Diagnosis ICD-10-CM 1. Type 2 diabetes mellitus with hyperglycemia, with long-term current use of insulin (HCC) E11.65 COMP METABOLIC PANEL Z79.4 HGB A1C 2. Essential hypertension I10 COMP METABOLIC PANEL CBC 3. Type 2 diabetes mellitus with microalbuminuria, with long-term current use of insulin (HCC) E11.29 COMP METABOLIC PANEL R80.9 HGB A1C Z79.4 ALBUMIN/CREAT RATIO RND UR 4. Pure hypercholesterolemia E78.00 LIPID PANEL BASIC Continue on simvastatin 5. Longstanding persistent atrial fibrillation (HCC) I48.11 Stable on current meds, including Eliquis, lanoxin, etc. Follows with cardiology 6. Colon cancer screening Z12.11 FECAL OCCULT BLOOD TEST Above issues addressed with patient. Patient involved in shared decision making for management of medical issues. History and medications reviewed. Epic updated as needed Refills and/or prescriptions taken care of and meds adjusted as indicated after reviewed history, exam and labs. Health Maintenance reviewed. Updated record and/or ordered tests as recorded. Encouraged on efforts at healthy diet and regular exercise and adequate sleep. Rodrigo Sepulveda MD documented in this encounter [facility] 01-08-2023 Miscellaneous Notes TC Barbara, Ferrous, Glimepiride & Omeprazole all were written 06/04/2022 for 90 days with 3 refills, sent to [facility]. Patient will check with pharmacy. Advised if she has any problems call back and speak to a nurse. Alis Baird LPN documented in this encounter [facility] 11-27-2022 Miscellaneous Notes Patient has been identified by name and date of : Yes Patient phones for refill(s): Requested Prescriptions Pending Prescriptions Disp Refills insulin needles, DISPOSABLE, (BD INSULIN PEN NEEDLE UF) 31 gauge x 5/16" 90 Each 3 Sig: Use 1 new pen needle with each injection of insulin. 1 daily. Diagnosis: (E11.65, Z79.4) Date of last office visit in primary care: 08/14/2022 6 month follow-up: 02/15/2023 Last 2 Encounter Wt Readings: Date: Wt: 08/14/2022 106.1 kg (234 lb) 02/12/2022 109.3 kg (241 lb) Previous labs/tests for medication: Diabetes: Hemoglobin A1C (%) Date Value 08/08/2022 7.6 02/07/2022 8.6 06/26/2021 6.9 12/16/2020 10.3 Please advise. Thank you. Alis Baird LPN documented in this encounter [facility] 11-27-2022 Miscellaneous Notes Patient has been identified by name and date of : Yes Patient phones for refill(s): Requested Prescriptions Pending Prescriptions Disp Refills blood sugar diagnostic (ONETOUCH ULTRA TEST) test strip 300 Strip 3 Sig: Use as instructed FOR TESTING twice daily. Dx: E11.65, Z79.4, Insulin: YES Date of last office visit in primary care: 08/14/2022 6 month follow-up: 02/15/2023 Last 2 Encounter Wt Readings: Date: Wt: 08/14/2022 106.1 kg (234 lb) 02/12/2022 109.3 kg (241 lb) Previous labs/tests for medication: Diabetes: Hemoglobin A1C (%) Date Value 08/08/2022 7.6 02/07/2022 8.6 06/26/2021 6.9 12/16/2020 10.3 Please advise. Thank you. Alis Baird LPN documented in this encounter [facility] 11-27-2022 Miscellaneous Notes Patient has been identified by name and date of : Yes, Provider Yes Patient phones for refill(s): Requested Prescriptions Pending Prescriptions Disp Refills potassium chloride ER (KLOR-CON) 20 mEq tablet Si tablet twice daily. Date of last office visit in primary care: 08/14/2022 6 month follow-up: 02/15/2023 Last 2 Encounter Wt Readings: Date: Wt: 08/14/2022 106.1 kg (234 lb) 02/12/2022 109.3 kg (241 lb) Previous labs/tests for medication: Potassium: No components found for: POT Please advise. Thank you. Alis Baird LPN documented in this encounter [facility] 10-03-2022 History of Present illness Narrative POPULATION HEALTH NAVIGATION OUTREACH Action/FYI LM for pt to call to schedule mammogram, colonoscopy, diabetic retinal eye exam. Notes added to upcoming ov to review hcc gaps Patient Identified by Name and : NO Outreach Outcome/Action Unable to reach patient: Left message [employer] message sent Did you use a PCP flex slot to schedule this appointment? N/A Reason for Outreach Care Gap or Scheduling/Wellness visits Payer: Payor: [employer] MEDICARE / Plan: Gen9 PLUS / Product Type: HMO / Care Gap Reviewed:: Breast Cancer screening Colorectal Cancer Screening Diabetic Eye Exam Reminder: Reminder note to check Health Maintenance for items below Health Maintenance items due: SHINGRIX VACCINE(1 of 2) Never done MAMMOGRAM due on 07/27/2016 DTAP,TDAP,TD(2 - Td or Tdap) due on 07/13/2020 BP CONTROLLED (<130/80) due on 11/05/2020 DILATED RETINAL EXAM due on 04/16/2022 COLORECTAL CANCER SCREENING due on 06/26/2022 ADVANCE DIRECTIVE DISCUSSION due on 09/02/2022 DEPRESSION ASSESSMENT due on 09/02/2022 Navigation Signature: Ida Felix MA October 03, 2022 2:06 PM documented in this encounter [facility] 09-04-2022 Miscellaneous Notes Okayed CALLIE: 08/14/2022 Last refill: 03/07/2022 QTY: 5 Refills: 2 Patient phones requesting refills as follows: Requested Prescriptions Pending Prescriptions Disp Refills insulin glargine (LANTUS SOLOSTAR U-100 INSULIN) 100 unit/mL (3 mL) 5 Each 2 Sig: Inject 22 Units subcutaneously daily at bedtime. Please review and advise. Kevin Ignacio Ma documented in this encounter [facility] 06-19-2022 History of Present illness Narrative POPULATION HEALTH NAVIGATION OUTREACH Action/FYI left message on machine to return call [employer] message sent to patient Pt identified by name and : NO Outreach Outcome/Action Unable to reach patient: Left message [employer] message sent Did you use a PCP flex slot to schedule this appointment? N/A Reason for Outreach Care Gap or Scheduling/Wellness visits Payer: Payor: [employer] MEDICARE / Plan: Gen9 PLUS / Product Type: HMO / Care Gap Reviewed:: Breast Cancer screening Colorectal Cancer Screening Diabetic Eye Exam HBA1C Flu vaccine Reminder: Reminder note to check Health Maintenance for items below Health Maintenance items due: MAMMOGRAM due on 07/27/2016 BONE DENSITY due on 2018 DIABETIC FOOT EXAM due on 04/27/2020 COVID-19 VACCINE(2 - Moderna series) due on 01/05/2021 ADVANCE DIRECTIVE DISCUSSION Never done DEPRESSION ASSESSMENT Never done DILATED RETINAL EXAM due on 04/16/2022 INFLUENZA(1) due on 05/03/2022 HBA1C due on 05/10/2022 COLORECTAL CANCER SCREENING due on 06/26/2022 Message Sent to Practice: No Navigation Signature: Vanessa Navarro, Population Health Navigator June 19, 2022 3:35 PM documented in this encounter [facility] 03-06-2022 Miscellaneous Notes Patient has been identified by name and date of : Yes Patient phones for refill(s): Pending Prescriptions Disp Refills INSULIN GLARGINE (U-100) 100 UNIT/ML (3 ML) SUBCUTANEOUS PEN 5 Pen 2 Sig: Inject 22 Units subcutaneously daily at bedtime. ANGEL: No Date of last office visit in primary care: 02/12/2022 6 month follow-up: 08/14/2022 Last 2 Encounter Wt Readings: Date: Wt: 02/12/2022 109.3 kg (241 lb) 07/10/2021 113.9 kg (251 lb) Previous labs/tests for medication: Diabetes: Hemoglobin A1C (%) Date Value 02/07/2022 8.6 06/26/2021 6.9 12/16/2020 10.3 Please advise. Thank you. Alis Baird LPN documented in this encounter [facility] 02-12-2022 History of Present illness Narrative This note was created using Doujia[employer]. Subjective Barbara Allen is a 66 year old female. Patient presents with: F/U 6 months SUBJECTIVE: Barbara Allen is a 66 year old year old lady here today for 6 month follow up appointment for review of medical conditions. Reviewed [facility] results of studies. LVEF went from 25% range on heart cath to 55% on echo in April 2021. Still in a fib. Amiodarone was stopped lately. Lasix helped. Lost a lot of fluid that was hanging onto. Has lost weight. Not eating like did before. Less appetite noted. Elevates legs as able. Decreased Lantus since sugars were doing well down to 90s. Still in 90 to 125 range. Reconciled med list PAST MEDICAL HISTORY Diagnosis Date Abnormal Papanicolaou smear of vagina and vaginal HPV Allergic rhinitis, cause unspecified Arm fracture 07/2010 right Cervicitis and endocervicitis Esophageal reflux Morbid obesity (HCC) Pure hypercholesterolemia Type II or unspecified type diabetes mellitus without mention of complication, not stated as uncontrolled 05/01/2005 Unspecified essential hypertension 05/01/2005 Current Outpatient Medications Medication Sig insulin needles, DISPOSABLE, (BD INSULIN PEN NEEDLE UF) 31 gauge x 5/16" Use 1 new pen needle with each injection of insulin. 1 daily. Diagnosis: (E11.65, Z79.4) blood sugar diagnostic ([employer] ULTRA TEST) test strip Use as instructed FOR TESTING twice daily. Dx: E11.65, Z79.4, Insulin: YES insulin glargine (LANTUS SOLOSTAR U-100 INSULIN) 100 unit/mL (3 mL) Inject 22 Units subcutaneously daily at bedtime. felodipine ER (PLENDIL) 10 mg 24 hr tablet Take 2 tablets by mouth once daily. ferrous sulfate 325 mg (65 mg iron) tablet Take 1 tablet by mouth every other day. furosemide (LASIX) 40 mg tablet Take 1 tablet by mouth twice daily. in morning glimepiride (AMARYL) 4 mg tablet Take 1 tablet by mouth twice daily with meals. omeprazole (PRILOSEC) 20 mg capsule Take 1 capsule by mouth daily before breakfast. 1/2 hr before meal. simvastatin (ZOCOR) 40 mg tablet Take 1 tablet by mouth once daily. potassium chloride ER (K-DUR, KLOR-CON) 20 mEq tablet 1 tablet twice daily. ELIQUIS 5 mg tab(s) Take 5 mg by mouth twice daily. digoxin (LANOXIN) 125 mcg (0.125 mg) tablet Take 125 mcg by mouth once daily. hydrALAZINE (APRESOLINE) 25 mg tablet Take 25 mg by mouth three times daily. isosorbide mononitrate ER (IMDUR) 30 mg 24 hr tablet Take 30 mg by mouth once daily. carvedilol (COREG) 12.5 mg tablet TAKE 1 TABLET BY MOUTH TWICE A DAY WITH A MEAL OR FOOD CRANBERRY [employer] Jobst stockings 30 mm Hg Knee high (dispense 4 pairs). (I87.303) Stasis edema of both lower extremities Lancets lancets Test blood sugar(s) 2 times daily. Dx: Type 2 DM - Uncontrolled E11.65 Insulin: Yes Multivitamins chew Take 2 tablets daily. No current facility-administered medications for this visit. Review of Systems Objective BP 112/60 Pulse 63 Wt 109.3 kg (241 lb) SpO2 96% BMI 39.49 kg/m Last 5 Encounter Wt Readings: Date: Wt: 02/12/2022 109.3 kg (241 lb) 07/10/2021 113.9 kg (251 lb) 05/19/2021 119.7 kg (264 lb) 03/28/2021 123.3 kg (271 lb 12.8 oz) 12/23/2020 125.8 kg (277 lb 6.4 oz) No waist measurement recorded Estimated body mass index is 39.49 kg/m as calculated from the following: Height as of 07/27/15: 166.4 cm (5' 5.5"). Weight as of this encounter: 109.3 kg (241 lb). Last 5 Encounter BP Readings: Date: BP: 02/12/2022 112/60 07/10/2021 122/78 05/19/2021 116/68 03/28/2021 124/78 12/23/2020 136/84 Physical Exam Constitutional: Appearance: Normal appearance. HENT: Head: Normocephalic. Eyes: Conjunctiva/sclera: Conjunctivae normal. Cardiovascular: Rate and Rhythm: Normal rate. Rhythm irregularly irregular. Heart sounds: Normal heart sounds. Comments: Wearing support stockings--helping control swelling. Pulmonary: Effort: Pulmonary effort is normal. Breath sounds: Normal breath sounds. Musculoskeletal: Right lower le+ Edema present. Left lower le+ Edema present. Skin: General: Skin is warm and dry. Neurological: General: No focal deficit present. Mental Status: She is alert and oriented to person, place, and time. Psychiatric: Mood and Affect: Mood normal. Behavior: Behavior normal. Thought Content: Thought content normal. Judgment: Judgment normal. Component Latest Ref Rng & Units 12/16/2020 06/26/2021 02/07/2022 WBC 3.70 - 11.00 k/uL 6.46 6.33 RBC 3.90 - 5.20 m/uL 4.29 4.22 Hemoglobin 11.5 - 15.5 g/dL 11.1 (L) 12.2 Hematocrit 36.0 - 46.0 % 38.2 38.7 MCV 80.0 - 100.0 fL 89.0 91.7 MCH 26.0 - 34.0 pg 25.9 (L) 28.9 MCHC 30.5 - 36.0 g/dL 29.1 (L) 31.5 RDW-CV 11.5 - 15.0 % 21.2 (H) 14.5 Platelet Count 150 - 400 k/uL 208 223 MPV 9.0 - 12.7 fL 11.7 11.5 Neut% % 77.3 Abs Neut (ANC) 1.45 - 7.50 k/uL 4.99 Lymph% % 14.4 Abs Lymph 1.00 - 4.00 k/uL 0.93 (L) Towns% % 6.0 Abs Towns <0.87 k/uL 0.39 Eosin% % 1.5 Abs Eosin <0.46 k/uL 0.10 Baso% % 0.8 Abs Baso <0.11 k/uL 0.05 Nucleated Reds 0 /100 WBC 0.0 Absolute nRBC <0.01 k/uL <0.01 <0.01 Diff Type Auto Diff Protein, Total 6.3 - 8.0 g/dL 7.3 8.0 Albumin 3.9 - 4.9 g/dL 3.7 (L) 4.4 Calcium 8.5 - 10.2 mg/dL 9.3 9.7 9.5 Bilirubin, Total 0.2 - 1.3 mg/dL 0.4 0.6 Alkaline Phosphatase 34 - 123 U/L 136 (H) 138 (H) AST 13 - 35 U/L 16 24 Glucose 74 - 99 mg/dL 227 (H) 110 (H) 191 (H) BUN 7 - 21 mg/dL 19 23 (H) 32 (H) Creatinine 0.58 - 0.96 mg/dL 0.77 1.09 (H) 1.20 (H) Sodium 136 - 144 mmol/L 139 141 140 Potassium 3.7 - 5.1 mmol/L 4.0 4.6 4.5 Chloride 97 - 105 mmol/L 104 104 100 CO2 22 - 30 mmol/L 26 21 (L) 29 Anion Gap 9 - 18 mmol/L 9 16 11 ALT 7 - 38 U/L 10 22 eGFR- >60 >60 eGFR-All Other Races . >60 50 eGFR >=60 mL/min/1.73m 49 (L) Cholesterol, Total <200 mg/dL 167 163 Triglyceride <150 mg/dL 101 79 HDL Cholesterol >39 mg/dL 51 60 LDL Cholesterol <100 mg/dL 96 87 Non HDL Cholesterol <130 mg/dL 116 103 Fasting Time hrs 12 12 VLDL Cholesterol <30 mg/dL 20 16 TC:HDL Ratio <5.10 3.27 2.72 LDL:HDL Ratio <2.54 1.88 1.45 Creatinine, Ur Random (UCRR) 20.0 - 300.0 mg/dL 79.6 68.2 Albumin, Urine Random mg/L 246.1 220.7 Albumin/Creat Ratio <30 mg/g 309 (H) 324 (H) Hemoglobin A1C 4.3 - 5.6 % 10.3 (H) 6.9 (H) 8.6 (H) Estimated Average Glucose mg/dL 249 151 200 Vitamin D 25 Hydroxy 31.0 - 80.0 ng/mL 32.2 35.4 TSH 0.270 - 4.200 mIU/L 4.440 (H) Free T4 0.9 - 1.7 ng/dL 1.8 (H) Free T3 2.3 - 4.1 pg/mL 2.0 (L) Assessment and Plan ASSESSMENT/PLAN: 1. Controlled type 2 diabetes mellitus with microalbuminuria, with long-term current use of insulin (HCC) - ICD9: 250.40, 791.0, V58.67, ICD10: E11.29, R80.9, Z79.4 (primary diagnosis) Controlled. - Continue current medications - Encouraged regular aerobic exercise and weight loss - Needs to keep working on diet and exercise with lifestyle changes for effective weight loss as well as control of DM, and control of BP and lipids. - COMP METABOLIC PANEL - CBC - ALBUMIN/CREAT RATIO RND UR 2. Essential hypertension - ICD9: 401.9, ICD10: I10 - good control - Continue current medication(s) - Recommended regular aerobic exercise. - Recommend home blood pressure monitoring, to bring results in on next visit - Goal of BP <130/80 - COMP METABOLIC PANEL - CBC 3. Pure hypercholesterolemia - ICD9: 272.0, ICD10: E78.00 Continue present management. Further evaluation and treatment as indicated. 4. Stasis edema of both lower extremities - ICD9: 459.30, ICD10: I87.303 Improving; mobilized more fluid as noted in HPI with weight loss affecting mostly her legs Continue present management. Further evaluation and treatment as indicated. 5. Acute on chronic diastolic congestive heart failure (HCC) - ICD9: 428.33, 428.0, ICD10: I50.33 Improved EF as noted in HPI Continue follow up with technical account executive 6. Elevated TSH - ICD9: 794.5, ICD10: R79.89 Suspect amiodarone caused elevated TSH Update labs as discussed. Further evaluation and treatment as indicated. - TSH BLD - T4 FREE/FREE THYROX - HGB A1C Rodrigo Sepulveda MD documented in this encounter [facility] 01-25-2022 Miscellaneous Notes Duplication request. Bailey Thornton LPN documented in this encounter [facility] 01-25-2022 Miscellaneous Notes Patient has been identified by name and date of : Yes Patient phones for refill(s): Pending Prescriptions Disp Refills PEN NEEDLE, DIABETIC 31 GAUGE X 5/16" 90 Each 3 Sig: Use 1 new pen needle with each injection of insulin. 1 daily. Diagnosis: (E11.65, Z79.4) ANGEL: No ONETOUCH ULTRA TEST STRIPS 300 Strip 3 Sig: Use as instructed FOR TESTING twice daily. Dx: E11.65, Z79.4, Insulin: YES ANGEL: No Date of last office visit in primary care: 07/10/21 Last 2 Encounter Wt Readings: Date: Wt: 07/10/2021 113.9 kg (251 lb) 05/19/2021 119.7 kg (264 lb) Previous labs/tests for medication: Diabetes: Hemoglobin A1C (%) Date Value 06/26/2021 6.9 12/16/2020 10.3 Please advise. Thank you. Pepper Durbin LPN documented in this encounter [facility] 11-23-2021 History of Present illness Narrative POPULATION HEALTH NAVIGATION OUTREACH Action/I [employer] outreach Mammogram AD LVM Mychart message sent Pt identified by name and : NO Outreach Outcome/Action Unable to reach patient: Left message MyChart message sent Reason for Outreach Care Gap or Scheduling/Wellness visits Payer: Payor: [employer] MEDICARE / Plan: [employer] GOLD PLUS / Product Type: HMO / Care Gap Reviewed:: Breast Cancer screening Reminder: Reminder note to check Health Maintenance for items below Health Maintenance items due: MAMMOGRAM due on 07/27/2016 BONE DENSITY due on 2018 COVID-19 VACCINE(2 - Moderna 3-dose series) due on 01/05/2021 ADVANCE DIRECTIVE DISCUSSION Never done LDL CHOLESTEROL due on 12/16/2021 Message Sent to Practice: No Navigation Signature: Maggy Fritz MA November 23, 2021 2:32 PM documented in this encounter [facility] 01-28-2020 History of Past i llness Narrative Problem Noted Date Resolved Date Uncontrolled type 2 diabetes mellitus with insul in therapy 01/28/2020 09/03/2021 documented as of this encounter (statuses as of 11/23/2021) [facility] History of Past illness Narrative* Problem Noted Date Resolved Date Uncontrolled type 2 diabetes mellitus with insul in therapy 01/28/2020 09/03/2021 documented as of this encounter (statuses as of 01/25/2022) [facility] History of Past illness Narrative* Problem Noted Date Resolved Date Uncontrolled type 2 diabetes mellitus with insul in therapy 01/28/2020 09/03/2021 documented as of this encounter (statuses as of 01/25/2022) [facility] History of Past illness Narrative* Problem Noted Date Resolved Date Uncontrolled type 2 diabetes mellitus with insul in therapy 01/28/2020 09/03/2021 documented as of this encounter (statuses as of 02/20/2022) [address] History of Past illness Narrative* Problem Noted Date Resolved Date Uncontrolled type 2 diabetes mellitus with insul in therapy 01/28/2020 09/03/2021 documented as of this encounter (statuses as of 03/05/2022) [address]2020 History of Past illness Narrative* Problem Noted Date Resolved Date Uncontrolled type 2 diabetes mellitus with insul in therapy 01/28/2020 09/03/2021 documented as of this encounter (statuses as of 03/07/2022) [address]2020 History of Past illness Narrative* Problem Noted Date Resolved Date Uncontrolled type 2 diabetes mellitus with insul in therapy 01/28/2020 09/03/2021 documented as of this encounter (statuses as of 06/04/2022) [address]28-2020 History of Past illness Narrative* Problem Noted Date Resolved Date Uncontrolled type 2 diabetes mellitus with insul in therapy 01/28/2020 09/03/2021 documented as of this encounter (statuses as of 06/19/2022) [address]2020 History of Past illness Narrative* Problem Noted Date Resolved Date Uncontrolled type 2 diabetes mellitus with insul in therapy 01/28/2020 09/03/2021 documented as of this encounter (statuses as of 08/06/2022) [address]2020 History of Past illness Narrative* Problem Noted Date Resolved Date Uncontrolled type 2 diabetes mellitus with insul in therapy 01/28/2020 09/03/2021 documented as of this encounter (statuses as of 09/06/2022) [address]2020 History of Past illness Narrative* Problem Noted Date Resolved Date Uncontrolled type 2 diabetes mellitus with insul in therapy 01/28/2020 09/03/2021 documented as of this encounter (statuses as of 10/03/2022) [address]2020 History of Past illness Narrative* Problem Noted Date Resolved Date Uncontrolled type 2 diabetes mellitus with insul in therapy 01/28/2020 09/03/2021 documented as of this encounter (statuses as of 11/27/2022) [address]2020 History of Past illness Narrative* Problem Noted Date Resolved Date Uncontrolled type 2 diabetes mellitus with insul in therapy 01/28/2020 09/03/2021 documented as of this encounter (statuses as of 11/27/2022) [place] [address] History of Past illness Narrative* Problem Noted Date Resolved Date Uncontrolled type 2 diabetes mellitus with insul in therapy 01/28/2020 09/03/2021 documented as of this encounter (statuses as of 01/09/2023) [address]28-2020 History of Past illness Narrative* Problem Noted Date Resolved Date Uncontrolled type 2 diabetes mellitus with insul in therapy 01/28/2020 09/03/2021 documented as of this encounter (statuses as of 02/04/2023) [address]-2020 History of Past illness Narrative* Problem Noted Date Resolved Date Uncontrolled type 2 diabetes mellitus with insul in therapy 01/28/2020 09/03/2021 documented as of this encounter (statuses as of 03/08/2023) [address]-2020 History of Past illness Narrative* Problem Noted Date Resolved Date Uncontrolled type 2 diabetes mellitus with insul in therapy 01/28/2020 09/03/2021 documented as of this encounter (statuses as of 03/08/2023) [address]-2020 History of Past illness Narrative* Problem Noted Date Diagnosed Date Resolved Date Uncontrolled type 2 diabetes mellitus with insulin therapy 01/28/2020 09/03/2021 Class 3 severe obesity with body mass index (BMI) of 40.0 to 44.9 in adult 05/08/2006 3 documented as of this encounter (statuses as of 03/19/2023) [address] History of Past illness Narrative* Problem Noted Date Diagnosed Date Resolved Date Uncontrolled type 2 diabetes mellitus with insulin therapy 01/28/2020 09/03/2021 Class 3 severe obesity with body mass index (BMI) of 40.0 to 44.9 in adult 05/08/2006 3 documented as of this encounter (statuses as of 06/02/2023) [address]2020 History of Past illness Narrative* Problem Noted Date Diagnosed Date Resolved Date Uncontrolled type 2 diabetes mellitus with insulin therapy 01/28/2020 09/03/2021 Class 3 severe obesity with body mass index (BMI) of 40.0 to 44.9 in adult 05/08/2006 3 documented as of this encounter (statuses as of 06/18/2023) [place] [address] History of Past illness Narrative* Problem Noted Date Diagnosed Date Resolved Date Uncontrolled type 2 diabetes mellitus with insulin therapy 01/28/2020 09/03/2021 Class 3 severe obesity with body mass index (BMI) of 40.0 to 44.9 in adult 05/08/2006 3 documented as of this encounter (statuses as of 07/11/2023) [place] [address] History of Past illness Narrative* Problem Noted Date Diagnosed Date Resolved Date Uncontrolled type 2 diabetes mellitus with insulin therapy 01/28/2020 09/03/2021 Class 3 severe obesity with body mass index (BMI) of 40.0 to 44.9 in adult 05/08/2006 3 documented as of this encounter (statuses as of 10/03/2023) [address] History of Past illness Narrative* Problem Noted Date Diagnosed Date Resolved Date Uncontrolled type 2 diabetes mellitus with insulin therapy 01/28/2020 09/03/2021 Class 3 severe obesity with body mass index (BMI) of 40.0 to 44.9 in adult 05/08/2006 3 documented as of this encounter (statuses as of 10/09/2023) [address]2020 History of Past illness Narrative* Problem Noted Date Diagnosed Date Resolved Date Uncontrolled type 2 diabetes mellitus with insulin therapy 01/28/2020 09/03/2021 Class 3 severe obesity with body mass index (BMI) of 40.0 to 44.9 in adult 05/08/2006 3 documented as of this encounter (statuses as of 12/13/2023) [address] History of Past illness Narrative* Problem Noted Date Diagnosed Date Resolved Date Uncontrolled type 2 diabetes mellitus with insulin therapy 01/28/2020 09/03/2021 Class 3 severe obesity with body mass index (BMI) of 40.0 to 44.9 in adult 05/08/2006 3 documented as of this encounter (statuses as of 12/06/2023) [facility] Diagnosis Uncontrolled type 2 diabetes mellitus with insulin therapy Type II or unspecified type diabetes mellitus without mention of complication, uncontrolled [facility] Diagnosis Controlled type 2 diabetes mellitus without complication, with long-term current use of insulin (HCC)- Primary Type II or unspecified type diabetes mellitus without mention of complication, uncontrolled [facility] Diagnosis Onset Date Resolution Status Atherosclerotic heart diseas e of [place] coronary artery without angina pectoris acute Atrial fibrillation acute Essential hypertension acute Mixed hyperlipidemia acute Cardiomyopathy chronic [facility] Work Phone: Evaluation note* Diagnosis Controlled type 2 diabetes mellitus with microalbuminuria, with long-term current use of insulin (HCC)- Primary Essential hypertension Unspecified essential hypertension Pure hypercholesterolemia Stasis edema of both lower extremities Acute on chronic diastolic congestive heart failure (HCC) Acute on chronic diastolic heart failure Elevated TSH Nonspecific abnormal results of thyroid function study [facility] Diagnosis Encounter for screening mammogram for breast cancer [facility] Diagnosis Controlled type 2 diabetes mellitus with microalbuminuria, with long-term current use of insulin (HCC) [facility] Diagnosis Essential hypertension Unspecified essential hypertension Controlled type 2 diabetes mellitus with microalbuminuria, with long-term current use of insulin (HCC) Gastroesophageal reflux disease without esophagitis Esophageal reflux [facility] Diagnosis Controlled type 2 diabetes mellitus with microalbuminuria, with long-term current use of insulin (HCC) [facility] Diagnosis Controlled type 2 diabetes mellitus without complication, with long-term current use of insulin (HCC) [facility] Diagnosis Essential hypertension Unspecified essential hypertension Controlled type 2 diabetes mellitus with microalbuminuria, with long-term current use of insulin (HCC) Gastroesophageal reflux disease without esophagitis Esophageal reflux [facility] Diagnosis Encounter for screening [facility] for breast cancer [facility] Diagnosis Controlled type 2 diabetes mellitus with microalbuminuria, with long-term current use of insulin (HCC) [facility] Diagnosis Type 2 diabetes mellitus with hyperglycemia, with long-term current use of insulin (HCC)- Primary Essential hypertension Unspecified essential hypertension Type 2 diabetes mellitus with microalbuminuria, with long-term current use of insulin (HCC) Pure hypercholesterolemia Longstanding persistent atrial fibrillation (HCC) Colon cancer screening Special screening for malignant neoplasms, colon [facility] Diagnosis Controlled type 2 diabetes mellitus with microalbuminuria, with long-term current use of insulin (HCC) [facility] Diagnosis Type 2 diabetes mellitus with hyperglycemia, with long-term current use of insulin (HCC)- Primary Pure hypercholesterolemia Essential hypertension Unspecified essential hypertension Encounter for long-term current use of medication Type 2 diabetes mellitus with microalbuminuria, with long-term current use of insulin (HCC) Positive for macroalbuminuria Proteinuria Vitamin D deficiency Unspecified vitamin D deficiency Elevated TSH Nonspecific abnormal results of thyroid function study [facility] Diagnosis Controlled type 2 diabetes mellitus with microalbuminuria, with long-term current use of insulin (HCC) [facility] Diagnosis Pure hypercholesterolemia [facility] Diagnosis Encounter for screening mammogram for breast cancer [facility] Diagnosis Medicare annual wellness visit, subsequent- Primary Routine general medical examination at a [facility] Controlled type 2 diabetes mellitus with microalbuminuria, with long-term current use of insulin (HCC) Pure hypercholesterolemia Vitamin D deficiency Unspecified vitamin D deficiency Screening for osteoporosis Special screening for osteoporosis Asymptomatic menopause Encounter for immunization Need for other specified prophylactic vaccination against single bacterial disease [facility] Diagnosis Venous stasis dermatitis of right lower extremity Lower extremity edema Edema Essential hypertension Unspecified essential hypertension Controlled type 2 diabetes mellitus with microalbuminuria, with long-term current use of insulin (HCC) Gastroesophageal reflux disease without esophagitis Esophageal reflux [facility] Diagnosis Pure hypercholesterolemia [facility] Diagnosis Venous stasis dermatitis of right lower extremity Lower extremity edema Edema [facility] Diagnosis Type 2 diabetes mellitus with microalbuminuria, with long-term current use of insulin (HCC)- Primary Essential hypertension Unspecified essential hypertension Pure hypercholesterolemia Gastroesophageal reflux disease without esophagitis Esophageal reflux Chronic anticoagulation Long-term (current) use of anticoagulants Longstanding persistent atrial fibrillation (HCC) Acute cystitis with hematuria Acute cystitis Encounter for immunization Need for other specified prophylactic vaccination against single bacterial disease Screening for colon cancer Special screening for malignant neoplasms, colon [facility] Diagnosis Encounter for screening mammogram for breast cancer documented in this encounter [facility] note* Diagnosis Type 2 diabetes mellitus with microalbuminuria, with long-term current use of insulin (HCC)- Primary Essential hypertension Unspecified essential hypertension Pure hypercholesterolemia Vitamin D deficiency Unspecified vitamin D deficiency Encounter for long-term current use of medication Elevated TSH Nonspecific abnormal results of thyroid function study Osteopenia, unspecified location documented in this encounter [facility] note* Diagnosis Controlled type 2 diabetes mellitus with microalbuminuria, with long-term current use of insulin (HCC) documented in this encounter [facility] noteNo assessment information availableSt. [facility] Work Phone: Evaluation note* Diagnosis Controlled type 2 diabetes mellitus with microalbuminuria, with long-term current use of insulin (HCC) documented in this encounter [facility] note* Diagnosis Controlled type 2 diabetes mellitus with microalbuminuria, with long-term current use of insulin (HCC)- Primary Pure hypercholesterolemia Vitamin D deficiency Unspecified vitamin D deficiency Essential hypertension Unspecified essential hypertension Acquired hypothyroidism Unspecified hypothyroidism Longstanding persistent atrial fibrillation (HCC) Gastroesophageal reflux disease without esophagitis Esophageal reflux Hypomagnesemia Disorders of magnesium metabolism Pulmonary hypertension (HCC) Other chronic pulmonary heart diseases Severe obesity (BMI 35.0-39.9) with comorbidity (HCC) Morbid obesity documented in this encounter [facility] (narrative)* Diagnostic Procedure Only (Routine) - Pending Review Specialty Diagnoses / Procedures Referred By Morris pink Referred To Contact [facility] Diagnoses Encounter for screening mammogram for breast cancer Procedures JEWELL SCREENING SCREENING MAMMOGRAPHY BI 2-VIEW BREAST INC CAD Rodrigo Sepulveda MD [address] [place] [address] [facility] [address] [place] [address] Referral ID Status Reason Start Date Expiration Date Visits Requested Visits Authorized [id number] Pending Review Auto-Generat ed Referral 02/28/2022 03/30/2023 1 1 [facility] for referral (narrative)* Diagnostic Procedure Only (Routine) - Pending Review Specialty Diagnoses / Procedures Referred By Morris pink Referred To Contact [facility] Diagnoses Encounter for screening mammogram for breast cancer Procedures JEWELL SCREENING SCREENING MAMMOGRAPHY BI 2-VIEW BREAST INC Rodrigo Oswald MD [address] [place] [id number] [facility] [address] [place] [address] Referral ID Status Reason Start Date Expiration Date Visits Requested Visits Authorized [id number] Pending Review Auto-Generat ed Referral 01/30/2023 02/29/2024 1 1 [facility] for referral (narrative)* Diagnostic Procedure Only (Routine) - Pending Review Specialty Diagnoses / Procedures Referred By Contac t Referred To Contact [facility] Diagnoses Encounter for screening mammogram for breast cancer Procedures JEWELL SCREENING SCREENING MAMMOGRAPHY BI 2-VIEW BREAST INC Rodrigo Oswald MD [address] [place] [id number] [facility] [address] [place] [id number] Referral ID Status Reason Start Date Expiration Date Visits Requested Visits Authorized [id number] Pending Review Auto-Generat ed Referral 01/08/2024 02/06/2025 1 1 [facility] for referral (narrative)* Diagnostic Procedure Only (Routine) - Authorized Specialty Diagnoses / Procedures Referred By Contac t Referred To Contact [facility] Diagnoses Screening for osteoporosis Asymptomatic menopause Procedures DXA-AXIAL SKELETON Rodrigo Sepulveda MD [address] [place] [id number] [id number] Referral ID Status Reason Start Date Expiration Date Visits Requested Visits Authorized [id number] Authorized Auto-Generat ed Referral 01/29/2024 02/27/2025 1 1 [facility] for referral (narrative)No reason for referral information availableSt. 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 Advance Directive(s) Chief Complaint and Reason for Visit Chief Complaint 10 m fu AFIB Reason for Visit Atherosclerotic hear t disease of [place] coronary artery without angina pectoris Atrial fibrillation Essential hypertension Mixed hyperlipidemia Cardiomyopathy Chief Complaint Admit Date 9 M FU February 04, 2025 2:09p m Family History No Family History Records Found Relationship Condition Age at Onset Recorded Date/T marshall mother No history of heart disease Unknown father No history of heart disease Unknown Summary Purpose Additional Source Comments Source Comments (unrecognize d section and content) In the event this informatio n is protected by the Federal Confidentiality of Alcohol and Drug Abuse Patient Records regulations: The Federal rules restrict any use of the information to criminally investigate or prosecute any alcohol or drug abuse patient.[facility] the event this information is protected by the Federal Confidentiality of Alcohol and Drug Abuse Patient Records regulations: The Federal rules restrict any use of the information to criminally investigate or prosecute any alcohol or drug abuse patient.[facility]In the event this information is protected by the Federal Confidentiality of Alcohol and Drug Abuse Patient Records regulations: The Federal rules restrict any use of the information to criminally investigate or prosecute any alcohol or drug abuse patient.[facility]In the event this information is protected by the Federal Confidentiality of Alcohol and Drug Abuse Patient Records regulations: The Federal rules restrict any use of the information to criminally investigate or prosecute any alcohol or drug abuse patient.[facility] the event this information is protected by the Federal Confidentiality of Alcohol and Drug Abuse Patient Records regulations: The Federal rules restrict any use of the information to criminally investigate or prosecute any alcohol or drug abuse patient.[facility]In the event this information is protected by the Federal Confidentiality of Alcohol and Drug Abuse Patient Records regulations: The Federal rules restrict any use of the information to criminally investigate or prosecute any alcohol or drug abuse patient.[facility]In the event this information is protected by the Federal Confidentiality of Alcohol and Drug Abuse Patient Records regulations: The Federal rules restrict any use of the information to criminally investigate or prosecute any alcohol or drug abuse patient.[facility] the event this information is protected by the Federal Confidentiality of Alcohol and Drug Abuse Patient Records regulations: The Federal rules restrict any use of the information to criminally investigate or prosecute any alcohol or drug abuse patient.[facility] AdministrationIn the event this information is protected by the Federal Confidentiality of Alcohol and Drug Abuse Patient Records regulations: The Federal rules restrict any use of the information to criminally investigate or prosecute any alcohol or drug abuse patient.[facility] AdministrationIn the event this information is protected by the Federal Confidentiality of Alcohol and Drug Abuse Patient Records regulations: The Federal rules restrict any use of the information to criminally investigate or prosecute any alcohol or drug abuse patient.[facility]In the event this information is protected by the Federal Confidentiality of Alcohol and Drug Abuse Patient Records regulations: The Federal rules restrict any use of the information to criminally investigate or prosecute any alcohol or drug abuse patient.[facility] AdministrationIn the event this information is protected by the Federal Confidentiality of Alcohol and Drug Abuse Patient Records regulations: The Federal rules restrict any use of the information to criminally investigate or prosecute any alcohol or drug abuse patient.[facility] AdministrationIn the event this information is protected by the Federal Confidentiality of Alcohol and Drug Abuse Patient Records regulations: The Federal rules restrict any use of the information to criminally investigate or prosecute any alcohol or drug abuse patient.[facility] AdministrationIn the event this information is protected by the Federal Confidentiality of Alcohol and Drug Abuse Patient Records regulations: The Federal rules restrict any use of the information to criminally investigate or prosecute any alcohol or drug abuse patient.[facility] AdministrationIn the event this information is protected by the Federal Confidentiality of Alcohol and Drug Abuse Patient Records regulations: The Federal rules restrict any use of the information to criminally investigate or prosecute any alcohol or drug abuse patient.[facility] AdministrationIn the event this information is protected by the Federal Confidentiality of Alcohol and Drug Abuse Patient Records regulations: The Federal rules restrict any use of the information to criminally investigate or prosecute any alcohol or drug abuse patient.[facility] AdministrationIn the event this information is protected by the Federal Confidentiality of Alcohol and Drug Abuse Patient Records regulations: The Federal rules restrict any use of the information to criminally investigate or prosecute any alcohol or drug abuse patient.[facility] AdministrationIn the event this information is protected by the Federal Confidentiality of Alcohol and Drug Abuse Patient Records regulations: The Federal rules restrict any use of the information to criminally investigate or prosecute any alcohol or drug abuse patient.[facility] AdministrationIn the event this information is protected by the Federal Confidentiality of Alcohol and Drug Abuse Patient Records regulations: The Federal rules restrict any use of the information to criminally investigate or prosecute any alcohol or drug abuse patient.[facility] AdministrationIn the event this information is protected by the Federal Confidentiality of Alcohol and Drug Abuse Patient Records regulations: The Federal rules restrict any use of the information to criminally investigate or prosecute any alcohol or drug abuse patient.[facility] AdministrationIn the event this information is protected by the Federal Confidentiality of Alcohol and Drug Abuse Patient Records regulations: The Federal rules restrict any use of the information to criminally investigate or prosecute any alcohol or drug abuse patient.[facility] AdministrationIn the event this information is protected by the Federal Confidentiality of Alcohol and Drug Abuse Patient Records regulations: The Federal rules restrict any use of the information to criminally investigate or prosecute any alcohol or drug abuse patient.[facility] AdministrationIn the event this information is protected by the Federal Confidentiality of Alcohol and Drug Abuse Patient Records regulations: The Federal rules restrict any use of the information to criminally investigate or prosecute any alcohol or drug abuse patient.[facility] AdministrationIn the event this information is protected by the Federal Confidentiality of Alcohol and Drug Abuse Patient Records regulations: The Federal rules restrict any use of the information to criminally investigate or prosecute any alcohol or drug abuse patient.[facility] AdministrationIn the event this information is protected by the Federal Confidentiality of Alcohol and Drug Abuse Patient Records regulations: The Federal rules restrict any use of the information to criminally investigate or prosecute any alcohol or drug abuse patient.[facility] AdministrationIn the event this information is protected by the Federal Confidentiality of Alcohol and Drug Abuse Patient Records regulations: The Federal rules restrict any use of the information to criminally investigate or prosecute any alcohol or drug abuse patient.[facility] AdministrationIn the event this information is protected by the Federal Confidentiality of Alcohol and Drug Abuse Patient Records regulations: The Federal rules restrict any use of the information to criminally investigate or prosecute any alcohol or drug abuse patient.[facility] AdministrationIn the event this information is protected by the Federal Confidentiality of Alcohol and Drug Abuse Patient Records regulations: The Federal rules restrict any use of the information to criminally investigate or prosecute any alcohol or drug abuse patient.[facility] AdministrationIn the event this information is protected by the Federal Confidentiality of Alcohol and Drug Abuse Patient Records regulations: The Federal rules restrict any use of the information to criminally investigate or prosecute any alcohol or drug abuse patient.[facility] AdministrationIn the event this information is protected by the Federal Confidentiality of Alcohol and Drug Abuse Patient Records regulations: The Federal rules restrict any use of the information to criminally investigate or prosecute any alcohol or drug abuse patient.[facility] AdministrationIn the event this information is protected by the Federal Confidentiality of Alcohol and Drug Abuse Patient Records regulations: The Federal rules restrict any use of the information to criminally investigate or prosecute any alcohol or drug abuse patient.[facility] AdministrationIn the event this information is protected by the Federal Confidentiality of Alcohol and Drug Abuse Patient Records regulations: The Federal rules restrict any use of the information to criminally investigate or prosecute any alcohol or drug abuse patient.[facility] AdministrationIn the event this information is protected by the Federal Confidentiality of Alcohol and Drug Abuse Patient Records regulations: The Federal rules restrict any use of the information to criminally investigate or prosecute any alcohol or drug abuse patient.[facility] AdministrationIn the event this information is protected by the Federal Confidentiality of Alcohol and Drug Abuse Patient Records regulations: The Federal rules restrict any use of the information to criminally investigate or prosecute any alcohol or drug abuse patient.[facility] AdministrationIn the event this information is protected by the Federal Confidentiality of Alcohol and Drug Abuse Patient Records regulations: The Federal rules restrict any use of the information to criminally investigate or prosecute any alcohol or drug abuse patient.[facility] AdministrationIn the event this information is protected by the Federal Confidentiality of Alcohol and Drug Abuse Patient Records regulations: The Federal rules restrict any use of the information to criminally investigate or prosecute any alcohol or drug abuse patient.[facility] AdministrationIn the event this information is protected by the Federal Confidentiality of Alcohol and Drug Abuse Patient Records regulations: The Federal rules restrict any use of the information to criminally investigate or prosecute any alcohol or drug abuse patient.[facility] AdministrationIn the event this information is protected by the Federal Confidentiality of Alcohol and Drug Abuse Patient Records regulations: The Federal rules restrict any use of the information to criminally investigate or prosecute any alcohol or drug abuse patient.[facility] AdministrationIn the event this information is protected by the Federal Confidentiality of Alcohol and Drug Abuse Patient Records regulations: The Federal rules restrict any use of the information to criminally investigate or prosecute any alcohol or drug abuse patient.[facility] AdministrationIn the event this information is protected by the Federal Confidentiality of Alcohol and Drug Abuse Patient Records regulations: The Federal rules restrict any use of the information to criminally investigate or prosecute any alcohol or drug abuse patient.[facility] AdministrationIn the event this information is protected by the Federal Confidentiality of Alcohol and Drug Abuse Patient Records regulations: The Federal rules restrict any use of the information to criminally investigate or prosecute any alcohol or drug abuse patient.[facility] AdministrationIn the event this information is protected by the Federal Confidentiality of Alcohol and Drug Abuse Patient Records regulations: The Federal rules restrict any use of the information to criminally investigate or prosecute any alcohol or drug abuse patient.[facility] AdministrationIn the event this information is protected by the Federal Confidentiality of Alcohol and Drug Abuse Patient Records regulations: The Federal rules restrict any use of the information to criminally investigate or prosecute any alcohol or drug abuse patient.[facility] AdministrationIn the event this information is protected by the Federal Confidentiality of Alcohol and Drug Abuse Patient Records regulations: The Federal rules restrict any use of the information to criminally investigate or prosecute any alcohol or drug abuse patient.[facility] AdministrationIn the event this information is protected by the Federal Confidentiality of Alcohol and Drug Abuse Patient Records regulations: The Federal rules restrict any use of the information to criminally investigate or prosecute any alcohol or drug abuse patient.[facility] AdministrationIn the event this information is protected by the Federal Confidentiality of Alcohol and Drug Abuse Patient Records regulations: The Federal rules restrict any use of the information to criminally investigate or prosecute any alcohol or drug abuse patient.[facility] AdministrationIn the event this information is protected by the Federal Confidentiality of Alcohol and Drug Abuse Patient Records regulations: The Federal rules restrict any use of the information to criminally investigate or prosecute any alcohol or drug abuse patient.[facility] Reason for Visit (unrecogniz ed section and content) Reason Onset Date Comments Population Health Navigation Outreach 11/23/2021 Care gap Reason Onset Date Comments Refill Request 01/25/2022 Reason Comments F/U 6 months Reason Onset Date Comments Refill Request 03/05/2022 Reason Onset Date Comments Refill Request 06/02/2022 Reason Onset Date Comments Population Health Navigation Outreach 06/19/2022 [employer] Care Gaps Reason Onset Date Comments Refill Request 09/04/2022 Reason Onset Date Comments Population Health Navigation Outreach 10/03/2022 [employer] care gaps Reason Onset Date Comments Refill Request 11/26/2022 Reason Onset Date Comments Refill Request 01/08/2023 Reason Onset Date Comments Refill Request 03/07/2023 Reason Onset Date Comments Population Health Navigation Outreach 06/02/2023 [employer] Care Gap Outreach Reason Comments Oxygen Order Reason Onset Date Comments Refill Request 10/02/2023 Reason Onset Date Comments Refill Request 10/09/2023 Reason Onset Date Comments Refill Request 12/12/2023 Reason Comments Orders Reason Onset Date Comments Refill Request 12/31/2023 Reason Onset Date Comments Refill Request 01/22/2024 Reason Comments Established Patient Follow up with labs prior Reason Onset Date Comments Refill Request 05/25/2024 Reason Onset Date Comments Refill Request 12/06/2023 Reason Comments clarify rx directions Reason Comments F/U 6 Month Reason Onset Date Comments Population Health Navigation Outreach 11/18/2024 [employer] High Risk - Attempt 1 Reason Onset Date Comments Care Coordination 12/16/2024 Panel Manageme nt Review for Pharmacist Referral for Diabetes Management Reason Onset Date Comments Refill Request 12/18/2024 Reason Onset Date Comments Refill Request 01/29/2025 Reason Onset Date Comments Care Coordination 02/02/2025 Reason Comments F/U 6 months medicare wellness du e Care Teams (unrecognized sec tion and content) Rental Coordinator Relationship Specialty Start Date End Date Rodrigo Sepulveda MD [address] [place] [address] PCP - General 12/07/02 [facility] [address] [facility] [place] [address] Pharmacist Pharmacy 02/04/20 Rental Coordinator Relationship Specialty Start Date End Date Rodrigo Sepulveda MD [address] [facility] [place] [address] PCP - General 12/07/02 [facility] [address] [facility] [place] [address] Pharmacist Pharmacy 02/04/20 Rental Coordinator Relationship Specialty Start Date End Date Rodrigo Sepulveda MD [address] [facility] [place] [address] PCP - General 12/07/02 Chris Simms, [facility] [address] [facility] [place] [address] Pharmacist Pharmacy 02/04/20 Rental Coordinator Relationship Specialty Start Date End Date Rodrigo Sepulveda MD [address] [place] [address] PCP - General 12/07/02 Chris Simms, [facility] [address] [facility] [place] [address] Pharmacist Pharmacy 02/04/20 Rental Coordinator Relationship Specialty Start Date End Date Rodrigo Sepulveda MD [address] [facility] [place] [address] PCP - General 12/07/02 Chris Simms, [facility] [address] [place] [address] Pharmacist Pharmacy 02/04/20 Rental Coordinator Relationship Specialty Start Date End Date Rodrigo Sepulveda MD [address] [place] [address] PCP - General 12/07/02 Chris Simms, [facility] [address] [place] [address] Pharmacist Pharmacy 02/04/20 Rental Coordinator Relationship Specialty Start Date End Date Rodrigo Sepulveda MD [address] [place] [address] PCP - General 12/07/02 Chris Simms, [facility] [address] [place] [address] Pharmacist Pharmacy 02/04/20 Rental Coordinator Relationship Specialty Start Date End Date Rodrigo Sepulveda MD [address] [place] [address] PCP - General 12/07/02 Chris Simms, [facility] [address] [place] [address] Pharmacist Pharmacy 02/04/20 Rental Coordinator Relationship Specialty Start Date End Date Rodrigo Sepulveda MD [address] [place] [address] PCP - General 12/07/02 Chris Simms, [facility] [address] [place] [address] Pharmacist Pharmacy 02/04/20 Rental Coordinator Relationship Specialty Start Date End Date Rodrigo Sepulveda MD [address] [place] [address] PCP - General 12/07/02 Chris Simms, [facility] [address] [place] [address] Pharmacist Pharmacy 02/04/20 Rental Coordinator Relationship Specialty Start Date End Date Rodrigo Sepulveda MD [address] [place] [address] PCP - General 12/07/02 MaoChris, [facility] [address] [place] [address] Pharmacist Pharmacy 02/04/20 Rental Coordinator Relationship Specialty Start Date End Date Rodrigo Sepulveda MD [address] [place] [address] PCP - General 12/07/02 Chris Simms, [facility] [address] [place] [address] Pharmacist Pharmacy 02/04/20 Rental Coordinator Relationship Specialty Start Date End Date Rodrigo Sepulveda MD [address] [place] [address] PCP - General 12/07/02 Chris Simms, [facility] [address] [place] [address] Pharmacist Pharmacy 02/04/20 Rental Coordinator Relationship Specialty Start Date End Date Rodrigo Sepulveda MD [address] [place] [address] PCP - General 12/07/02 MaoChris francis, [facility] [address] [place] [address] Pharmacist Pharmacy 02/04/20 Rental Coordinator Relationship Specialty Start Date End Date Rodrigo Sepulveda MD [address] [place] [address] PCP - General 12/07/02 Maotito Chris, [facility] [address] [place] [address] Pharmacist Pharmacy 02/04/20 Rental Coordinator Relationship Specialty Start Date End Date Rodrigo Sepulveda MD [address] [place] [address] PCP - General 12/07/02 [facility] [address] [place] [address] Pharmacist Pharmacy 02/04/20 Rental Coordinator Relationship Specialty Start Date End Date Rodrigo Sepulveda MD [address] [place] [address] PCP - General 12/07/02 Rental Coordinator Relationship Specialty Start Date End Date Rodrigo Sepulveda MD [address] [place] [address] PCP - General 12/07/02 Rental Coordinator Relationship Specialty Start Date End Date Rodrigo Sepulveda MD [address] [place] [address] PCP - General 12/07/02 Rental Coordinator Relationship Specialty Start Date End Date Rodrigo Sepulveda MD [address] [place] [address] PCP - General 12/07/02 Rental Coordinator Relationship Specialty Start Date End Date Rodrigo Sepulveda MD [address] [place] [address] PCP - General 12/07/02 Rental Coordinator Relationship Specialty Start Date End Date Rodrigo Sepulveda MD [address] [place] [address] PCP - General 12/07/02 Rental Coordinator Relationship Specialty Start Date End Date Rodrigo Sepulveda MD [address] [place] [address] PCP - General 12/07/02 Rental Coordinator Relationship Specialty Start Date End Date Rodrigo Sepulveda MD [address] [place] [address] PCP - General 12/07/02 Rental Coordinator Relationship Specialty Start Date End Date Rodrigo Sepulveda MD [address] [place] [address] PCP - General 12/07/02 Rental Coordinator Relationship Specialty Start Date End Date Rodrigo Sepulveda MD [address] [place] [address] PCP - General 12/07/02 Jillian Mojica, PACKING CHECKER.CRECHE ATTENDANT [address] [place] [address] Test Center Administrator Internal Medicine 08/10/24 Benita Beltran APRN.MANAGER HOTEL [address] [place] [address] Test Center Administrator Internal Medicine 08/10/24 Rental Coordinator Relationship Specialty Start Date End Date Rodrigo Sepulveda MD [address] [place] [address] PCP - General 12/07/02 Jillian Mojica APRN.CRECHE ATTENDANT [address] [facility] [place] [address] Test Center Administrator Internal Medicine 08/10/24 Benita Beltran APRN.MANAGER HOTEL [address] [facility] [place] [address] Test Center Administrator Internal Medicine 08/10/24 Rental Coordinator Relationship Specialty Start Date End Date Rodrigo Sepulveda MD [address] [place] [address] PCP - General 12/07/02 Jillian Mojica APRN.CRECHE ATTENDANT [address] [place] [address] Test Center Administrator Internal Medicine 08/10/24 Benita Beltran APRN.MANAGER HOTEL [address] [place] [address] Test Center Administrator Internal Medicine 11/24/24 Rental Coordinator Relationship Specialty Start Date End Date Rodrigo Sepulveda MD [address] [place] [address] PCP - General 12/07/02 Jillian Mojica, PACKING CHECKER.CRECHE ATTENDANT [address] [place] [address] Test Center Administrator Internal Medicine 08/10/24 Benita Beltran PACKING CHECKER.MANAGER HOTEL [address] [place] [address] Test Center Administrator Internal Medicine 11/24/24 Rental Coordinator Relationship Specialty Start Date End Date Rodrigo Sepulveda MD [address] [place] [address] PCP - General 12/07/02 Jillian Mojica, PACKING CHECKER.CRECHE ATTENDANT [address] [facility] [place] [address] Test Center Administrator Internal Medicine 08/10/24 Benita Beltran PACKING CHECKER.MANAGER HOTEL [address] [place] [address] Test Center Administrator Internal Medicine 11/24/24 Rental Coordinator Relationship Specialty Start Date End Date Rodrigo Sepulveda MD [address] [facility] [place] [place] [address] PCP - General 12/07/02 Jillian Mojica, PACKING CHECKER.CRECHE ATTENDANT [address] [place] [address] Test Center Administrator Internal Medicine 08/10/24 Benita Beltran PACKING CHECKER.MANAGER HOTEL [address] [facility] [place] [address] Test Center Administrator Internal Medicine 11/24/24 Rental Coordinator Relationship Specialty Start Date End Date Rodrigo Sepulveda MD [address] [place] [address] PCP - General 12/07/02 Benita Beltran, PACKING CHECKER.MANAGER HOTEL [address] [place] [address] Test Center Administrator Internal Medicine 11/24/24 Jillian Mojica, PACKING CHECKER.CRECHE ATTENDANT [address] [place] [address] [facility] Internal Medicine 01/20/25 Rental Coordinator Relationship Specialty Start Date End Date Rodrigo Sepulveda MD [address] [place] [address] PCP - General 12/07/02 Benita Beltran, PACKING CHECKER.MANAGER HOTEL [address] [place] [address] Test Center Administrator Internal Medicine 11/24/24 Jillian Mojica, PACKING CHECKER.CRECHE ATTENDANT [address] [place] [address] [facility] Internal Medicine 01/20/25 Team Status: Active Member Role Status Dates Dr. Rodrigo Sepulveda MD Family Provider Active Dr. Rodrigo Sepulveda MD Primary Care Provider Active Team Status: Inactive Member Role Status Dates Dr. Rodrigo Sepulveda MD Primary Care Provider Active Start: February 04, 2025 End: February 04, 2025 Dr. Rodrigo Sepulveda MD Referring Provider Active Start: February 04, 2025 End: February 04, 2025 Dr. Milton Linton MD Attending Provider Active Start: February 04, 2025 End: February 04, 2025 Rental Coordinator Relationship Specialty Start Date End Date Rodrigo Sepulveda MD [address] [place] [address] PCP - General 12/07/02 Benita Beltran APRN.MANAGER HOTEL [address] [place] [address] Test Center Administrator Internal Medicine 11/24/24 Jillian Mojica, PACKING CHECKER.CRECHE ATTENDANT [address] [place] [address] Test Center Administrator Internal Medicine 01/20/25 Rental Coordinator Relationship Specialty Start Date End Date Rodrigo Sepulveda MD [address] [place] [address] PCP - General 12/07/02 Benita Beltran APRN.MANAGER HOTEL [address] [place] [address] Test Center Administrator Internal Medicine 11/24/24 Jillian Mojica, PACKING CHECKER.CRECHE ATTENDANT [address] [place] [address] Test Center Administrator Internal Medicine 01/20/25 Rental Coordinator Relationship Specialty Start Date End Date Rodrigo Sepulveda MD [address] [place] [address] PCP - General 12/07/02 Benita Beltran APRN.MANAGER HOTEL [address] [place] [address] Test Center Administrator Internal Medicine 11/24/24 Jillian Mojica, PACKING CHECKER.CRECHE ATTENDANT [address] [place] [address] [facility] Internal Medicine 01/20/25 Goals (unrecognized section and content) Goals may be documented in a n alternate sectionGoals may be documented in an alternate section INFORMATION SOURCE (unrecogn ized section and content) DATE CREATED AUTHOR 02/05/2025 [facility] DATE CREATED AUTHOR AUTHOR'S VIDAL MUNIZ 03/16/2025 [facility] FOR RECORDS PERTAINING TO PATIENTS WHO ARE OR HAVE BEEN ENROLLED IN A CHEMICAL DEPENDENCY/SUBSTANCEABUSE PROGRAM, SOME INFORMATION MAY BE OMITTED. This clinical summary was aggregated from multiple sources. Caution should be exercised in using it in the provision of clinical care. This summary normalizes information from multiple sources, and as a consequence, information in this document may materially change the coding, format and clinical context of patient data. In addition, data may be omitted in some cases. CLINICAL DECISIONS SHOULD BE BASED ON THE PRIMARY CLINICAL RECORDS. [facility]. provides no warranty or guarantee of the accuracy or completeness of information in this document.
[2025-03-22] MEDS: Ceftriaxone 2 GM in 0.9% Normal Saline (50mL MB+) 50 ML IV (22:42)
[2025-03-22] MEDS: 0.9% Normal Saline (1000mL) 1,000 ML 999 ML IV (22:47)
[2025-03-22 22:48] VITALS: BP 143/84; PULSE 85; RESP 24; TEMP 38.1; O2SAT 100
[2025-03-22 22:58] LABS: Pro- Brain NATRIURETIC PEPTIDE 31913 pg/mL (<=900)
[2025-03-22] MEDS: Azithromycin 500 MG in 0.9% Normal Saline (250mL Bag) 250 ML 250 MG IV (23:06)
[2025-03-22 23:16] LABS: Anisocytosis 1+; Tear Drop Cell RARE
--- OUTSIDE RECORDS SUMMARY | 2025-03-22 23:39 | XMS RPT_ITS | CCD ---
Author Organization [facility] CliniSydc Care Team Providers Care Digital Asset Specialist Name Role Phone Rodrigo Sepulveda MD Primary Care Provider [facility], Keti Unavailable Dr. Rodrigo Sepulveda Primary Care Provider Dr. Rodrigo Sepulveda Referring Provider Dr. Martínez Dawson Attending Provider Rodrgio Sepulveda MD Primary Care Provider [facility], Keti Unavailable Rodrigo Sepulveda MD Primary Care Provider [facility], Keti Unavailable [facility], Keti Unavailable Rodrigo Sepulveda MD Primary Care Provider Mojica [employer]CHO[employer] FRENCH TEACHER.HOT DIE PICKER, Jillian Unavailable Ruby [employer]CHO[employer] FRENCH TEACHER.COLLECTION TEAM LEAD, Benita Unavailable Ruby [employer]CHOOL FRENCH TEACHER.COLLECTION TEAM LEAD, Benita Unavailable Mojica MIDDLE SCHOOL FRENCH TEACHER.HOT DIE PICKER, Jillian Unavailable Rodrigo Sepulveda Primary Care Unavailable [...] Lisinopril; 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: [LISINOPRIL] Drug Allergy 03-10-2014 [facility] (1 source) Lisinopril Drug Allergy 02-04-2025 [facility] Repository Medications Current Medications Medication Drug Class(es) [...] Start: 02-11-2024 take 1 capsule by mo [facility] once daily Cholecalciferol (Vitamin D3) 50 mcg [...] microalbuminuria, with long-term current use of insulin ([facility]) Take 1 tablet by mouth two times a day with meals. 180 tablet 3 05/25/2024 Active Start: 06-04-2022 take 1 tablet by angeline th twice daily at mealtime glimepiride (AMARYL) 4 mg tablet Indications: Controlled type 2 diabetes mellitus with microalbuminuria, with long-term current use of insulin ([facility]) Take 1 tablet by mouth twice daily with meals. 180 tablet 3 06/04/2022 Active Start: 12-14-2019 End: 06-02-2022 take 1 tablet by mouth twice daily at mealtime glimepiride (AMARYL) 4 mg tablet Indications: Controlled type 2 diabetes mellitus with microalbuminuria, with long-term current use of insulin ([facility]) Take 1 tablet by mouth twice daily [...] microalbuminuria, with long-term current use of insulin ([facility]) Inject 22-32 Units subcutaneously daily at bedtime. [...] Start: 06-04-2022 take 1 capsule by mo [facility] once daily before breakfast omeprazole (PRILOSEC) 20 [...] on above: Take 1 capsule by mo [facility] daily before breakfast. 1/2 hr before meal. [...] twice daily . [facility]. 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) drug therapy] 12-27-2023 Episodic Other aftercare (1 source) Long-term current use of drug therapy; 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: [Other correction (current) drug therapy] 01-13-2025 Episodic Other aftercare (3 sources) prison (current) use of insulin; 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: [Controlled type [...] sources) Long-term current use of anticoagulant; 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: [intermediate manager (current) use of anticoagulants] Onset: 08-03-2024 08-03-2024 Episodic Other aftercare (1 source) prison (current) use of anticoagulants; 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: [Chronic anticoagulation] [...] Office Visit (INTMWS ) ----- ALEJANDROBARBARA Irizarry ([id number]) 1955 F Date Time Provider Department 02/17/25 10:20 AM RODRIGO SEPULVEDA INTMWS During your visit today, we recorded the following information about you: Temperature Pulse Respiration Blood pressure 97.9 degrees 85/minute 14/minute 128/64 Weight Height 110.7 kg 1.664 m Danny Trejo LPN 03/12/2025 1:30 AM Signed Last seen eye doctor x 1 year ago at [facility]- Last seen [facility] on 02/04/25 Rodrigo Sepulveda MD [...] with these medications and confirms that her orthopedic technician manages most of them. She reports that [...] taking: Reported on 02/17/2025) blood sugar diagnostic (BatonTOUCH ULTRA TEST) test strip Use as instructed [...] 3.90 - (more content not included)... Normal [facility] Cardiology Visit Reporton Cardiology Visit Report [facility] [address] [place], [place] [address] OFFICE VISIT Date of Service: 02/04/25 MR#: [id number] Acct: [id number] Name: BARBARA ALLEN Rep #: [id number] : 1955 Provider: Dr. Milton parkinson MD Age/Sex: 69/F Location: [facility] Status: Signed HPI HPI History of Present [...] triglycerides 79. These are managed through the [facility] and are checked routinely by the patient's report. She also has a history of hypertension which is well-controlled in the office today. She has a history of diabetes mellitus she does not remember her last hemoglobin A1c but it is managed through the [facility]. 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 Required: No Accompanied by: Self Is patient [...] you fallen in the past year?: No [facility] Medical History Type 2 diabetes mellitus Mixed hyperlipidemia Atherosclerotic heart disease of [place] coronary artery without angina pectoris Essential hypertension Pulmonary hypertension assoc with unclear multi-factorial mechanisms MORGAN (obstructive sleep apnea) CAD (coronary artery disease) Cardiomyopathy History of left heart catheterization (LHC) ( 01/27/21) Sleep apnea GERD (gastroesophageal reflux disease) Diabetes Surgical History History of tonsillectomy Family History Mother No history of heart disease Father No history of heart disease Social History ... Normal [facility] 25([facility]3 [facility] 25-hydroxyvitamin D3 [Mass/Vol] 38.2 ng/mL Normal 31.0-80.0 [facility] Comment on above: Order Comment: Heber bruce Type: BLOOD SPECIMENOrdering Facility: [facility] Address: [address] [place] [address] Performed By: #### 1 989-3 ####[facility] LABCLIA [id number] [place] [address] [place] ALBUMIN/CREATININE RATIO, UR INEon 02-02-2025 Albumin DL <= 20 mg/L (U) [Mass/Vol] 940.2 mg/L Normal [facility] Comment on above: Order Comment: Heber bruce Type: URINE SPECIMENOrdering Facility: [facility] Address: [address] [place] [address] Performed By: #### U ACR ####[facility] LABIA [id number] [place] [address] [place] Albumin/Creatinine (U) [Mass ratio] 2362 mg/g High <30 [facility] Comment on above: Order Comment: Heber bruce Type: URINE SPECIMENOrdering Facility: [facility] Address: [address] [place] [address] Result Comment: Not calculated Adult Male and Female Nephrotic Criteria: <30 mg/g is considered normal to mildly increased 30-300 mg/g is considered moderately increased >300 mg/g is considered severely increased KDIGO. (2013). KDIGO 2012 Clinical Practice Guideline for the Evaluation and Management of Chronic Kidney Disease. Official Journal of the International Society of Nephrology, 3(1), 1150. Performed By: #### U ACR ####[facility] LABCLIA [id number] [address] [place] Creatinine (U) [Mass/Vol] 39.8 mg/dL Normal 20.0-300.0 [facility] Comment on above: Order Comment: Speci men Type: URINE SPECIMENOrdering Facility: [facility] Address: [address] [place] [address] Performed By: #### U ACR ####[facility] LABCLIA [id number] [place] [address] [place] CBC W Auto Differential pane l (Bld)on 02-02-2025 Basophils (Bld) [#/Vol] 0.04 10*3/uL Normal <0.11 [facility] Comment on above: Order Comment: Speci men Type: BLOOD SPECIMENOrdering Facility: [facility] Address: [address] [place] [address] Performed By: #### 5 7021-8 ####[facility] MILLWNCLIA [id number] [place] [address] [place] Basophils/100 WBC (Bld) 0.5 % Normal [facility] Comment on above: Order Comment: Speci men Type: BLOOD SPECIMENOrdering Facility: [facility] Address: [address] [place] [address] Performed By: #### 5 7021-8 ####[facility] MILLTOWNCLIA [id number] [place] [address] [place] Differential cell count method Nom (Bld) Auto Normal [facility] Comment on above: Order Comment: Speci men Type: BLOOD SPECIMENOrdering Facility: [facility] Address: [address] [place] [address] Performed By: #### 5 7021-8 ####[facility] MILLWNCLIA [id number] [place] [address] [place] Eosinophils (Bld) [#/Vol] 0.17 10*3/uL Normal <0.46 [facility] Comment on above: Order Comment: Speci men Type: BLOOD SPECIMENOrdering Facility: [facility] Address: [address] [place] [address] Performed By: #### 5 7021-8 ####[facility] SYSTEMLIA [id number] [place] [address] [place] Eosinophils/100 WBC (Bld) 2.2 % Normal [facility] Comment on above: Order Comment: Speci men Type: BLOOD SPECIMENOrdering Facility: [facility] Address: [address] [place] [address] Performed By: #### 5 7021-8 ####[facility] [id number] [place] [address] [place] Erythrocyte distribution width (RBC) [Ratio] 14.4 % Normal 11.5-15.0 [facility] Comment on above: Order Comment: Speci men Type: BLOOD SPECIMENOrdering Facility: [facility] Address: [address] [place] [address] Performed By: #### 5 7021-8 ####[facility] [id number] [place] [address] [place] Hematocrit (Bld) [Volume fraction] 34.9 % Low 36.0-46.0 [facility] Comment on above: Order Comment: Speci men Type: BLOOD SPECIMENOrdering Facility: [facility] Address: [address] [place] [address] Performed By: #### 5 7021-8 ####[facility] RIVERNCLI [id number] [place] [address] [place] Hemoglobin (Bld) [Mass/Vol] 11.5 g/dL Normal 11.5-15.5 [facility] Comment on above: Order Comment: Speci men Type: BLOOD SPECIMENOrdering Facility: [facility] Address: [address] [place] [address] Performed By: #### 5 7021-8 ####[facility] [id number] [place] [address] [place] Immature granulocytes (Bld) [#/Vol] 0.03 10*3/uL Normal <0.10 [facility] Comment on above: Order Comment: Speci men Type: BLOOD SPECIMENOrdering Facility: [facility] Address: [address] [place] [address] Performed By: #### 5 7021-8 ####[facility] [id number] [place] [address] [place] Immature granulocytes/100 WBC (Bld) 0.4 % Normal [facility] Comment on above: Order Comment: Speci men Type: BLOOD SPECIMENOrdering Facility: [facility] Address: [address] [place] [address] Performed By: #### 5 7021-8 ####[facility] [id number] [place] [address] [place] Lymphocytes (Bld) [#/Vol] 1.13 10*3/uL Normal 1.00-4.00 [facility] Comment on above: Order Comment: Speci men Type: BLOOD SPECIMENOrdering Facility: [facility] Address: [address] [place] [address] Performed By: #### 5 7021-8 ####[facility] [id number] [place] [address] [place] Lymphocytes/100 WBC (Bld) 14.8 % Normal [facility] Comment on above: Order Comment: Speci men Type: BLOOD SPECIMENOrdering Facility: [facility] Address: [address] [place] [address] Performed By: #### 5 7021-8 ####[facility] MILLWNCLIA [id number] [address] STATES [facility] MCH (RBC) [Entitic mass] 28.6 pg Normal 26.0-34.0 [facility] Comment on above: Order Comment: Speci men Type: BLOOD SPECIMENOrdering Facility: [facility] Address: [address] [place] [address] Performed By: #### 5 7021-8 ####[facility] RIVERNCLIA [id number] [address] [place] MCHC (RBC) [Mass/Vol] 33.0 g/dL Normal 30.5-36.0 [facility] Comment on above: Order Comment: Speci men Type: BLOOD SPECIMENOrdering Facility: [facility] Address: [address] [place] [address] Performed By: #### 5 7021-8 ####[facility] RIVERNCLIA [id number] [place] [address] [place] MCV (RBC) [Entitic vol] 86.8 fL Normal 80.0-100.0 [facility] Comment on above: Order Comment: Speci men Type: BLOOD SPECIMENOrdering Facility: [facility] Address: [address] [place] [address] Performed By: #### 5 7021-8 ####[facility] SYSTEMLIA [id number] [place] [address] [place] Monocytes (Bld) [#/Vol] 0.55 10*3/uL Normal <0.87 [facility] Comment on above: Order Comment: Speci men Type: BLOOD SPECIMENOrdering Facility: [facility] Address: [address] [place] [address] Performed By: #### 5 7021-8 ####[facility] SYSTEMLIA [id number] [place] [address] [place] Monocytes/100 WBC (Bld) 7.2 % Normal [facility] Comment on above: Order Comment: Speci men Type: BLOOD SPECIMENOrdering Facility: [facility] Address: [address] [place] [address] Performed By: #### 5 7021-8 ####[facility] [id number] [place] [address] [place] Neutrophils (Bld) [#/Vol] 5.73 10*3/uL Normal 1.45-7.50 [facility] Comment on above: Order Comment: Speci men Type: BLOOD SPECIMENOrdering Facility: [facility] Address: [address] [place] [address] Performed By: #### 5 7021-8 ####[facility] [id number] [place] [address] [place] Neutrophils/100 WBC (Bld) 74.9 % Normal [facility] Comment on above: Order Comment: Speci men Type: BLOOD SPECIMENOrdering Facility: [facility] Address: [address] [place] [address] Performed By: #### 5 7021-8 ####[facility] [id number] [place] [address] [place] Nucleated RBC (Bld) [#/Vol] 10*3/uL Normal <0.01 [facility] Comment on above: Order Comment: Speci men Type: BLOOD SPECIMENOrdering Facility: [facility] Address: [address] [place] [address] Performed By: #### 5 7021-8 ####[facility] [id number] [place] [address] [place] Nucleated RBC/100 WBC (Bld) [Ratio] 0.0 /100 WBC Normal [facility] Comment on above: Order Comment: Speci men Type: BLOOD SPECIMENOrdering Facility: [facility] Address: [address] [place] [address] Performed By: #### 5 7021-8 ####[facility] MAR[facility]LL[facility] TAMMINCJAVI [id number] [place] [address] [place] Platelet mean volume (Bld) [Entitic vol] 10.5 fL Normal 9.0-12.7 [facility] Comment on above: Order Comment: Speci men Type: BLOOD SPECIMENOrdering Facility: [facility] Address: [address] [place] [address] Performed By: #### 5 7021-8 ####[facility]NCPRATIMAA [id number] [place] [address] [place] Platelets (Bld) [#/Vol] 219 10*3/uL Normal 150-400 [facility] Comment on above: Order Comment: Speci men Type: BLOOD SPECIMENOrdering Facility: [facility] Address: [address] [place] [address] Performed By: #### 5 7021-8 ####[facility] RIVERNCLIA [id number] [place] [address] [place] RBC (Bld) [#/Vol] 4.02 10*6/uL Normal 3.90-5.20 [facility] Comment on above: Order Comment: Speci men Type: BLOOD SPECIMENOrdering Facility: [facility] Address: [address] [place] [address] Performed By: #### 5 7021-8 ####[facility]ERNCLIA [id number] [place] [address] [place] WBC (Bld) [#/Vol] 7.65 10*3/uL Normal 3.70-11.00 [facility] Comment on above: Order Comment: Speci men Type: BLOOD SPECIMENOrdering Facility: [facility] Address: [address] [place] [address] Performed By: #### 5 7021-8 ####[facility] JAROD [id number] [place] [address] [place] Comprehensive metabolic 2000 panelon 02-02-2025 Albumin [Mass/Vol] 4.0 g/dL Normal 3.9-4.9 [facility] Comment on above: Order Comment: Speci men Type: BLOOD SPECIMENOrdering Facility: [facility] Address: [address] [place] [address] Performed By: #### 1 9123-9, 06077-0 ####[facility] BRUCEBURTONRAOULPRATIMANunu [id number] [place] [address] [place] ALP [Catalytic activity/Vol] 135 U/L High 34-123 [facility] Comment on above: Order Comment: Speci men Type: BLOOD SPECIMENOrdering Facility: [facility] Address: [address] [place] [address] Performed By: #### 1 9123-9, 04307-3 ####[facility] BRUCEBURTONNACHONunu [id number] [place] [address] [place] ALT [Catalytic activity/Vol] 10 U/L Normal 7-38 [facility] Comment on above: Order Comment: Speci men Type: BLOOD SPECIMENOrdering Facility: [facility] Address: [address] [place] [address] Performed By: #### 1 9123-9, 74762-5 ####[facility] RIVERRAOULLIA [id number] [place] [address] [place] Anion gap [Moles/Vol] 13 mmol/L Normal 8-15 [facility] Comment on above: Order Comment: Speci men Type: BLOOD SPECIMENOrdering Facility: [facility] Address: [address] [place] [address] Performed By: #### 1 9123-9, 70337-1 ####[facility] MILLTOWNCLIA [id number] [place] [address] [place] AST [Catalytic activity/Vol] 11 U/L Low 13-35 [facility] Comment on above: Order Comment: Speci men Type: BLOOD SPECIMENOrdering Facility: [facility] Address: [address] [place] [address] Performed By: #### 1 9123-9, 43325-9 ####[facility] SYSTEML[facility] [id number] [place] [address] [place] Bilirubin [Mass/Vol] 0.5 mg/dL Normal 0.2-1.3 [facility] Comment on above: Order Comment: Speci men Type: BLOOD SPECIMENOrdering Facility: [facility] Address: [address] [place] [address] Performed By: #### 1 9123-9, 52686-1 ####[facility] SYSTEML[facility] [id number] [place] [address] [place] Calcium [Mass/Vol] 9.5 mg/dL Normal 8.5-10.2 [facility] Comment on above: Order Comment: Speci men Type: BLOOD SPECIMENOrdering Facility: [facility] Address: [address] [place] [address] Performed By: #### 1 9123-9, 67814-0 ####[facility] SYSTEML[facility] [id number] [place] [address] [place] Chloride [Moles/Vol] 107 mmol/L Normal 98-107 [facility] Comment on above: Order Comment: Speci men Type: BLOOD SPECIMENOrdering Facility: [facility] Address: [address] [place] [address] Performed By: #### 1 9123-9, 63464-5 ####[facility] MILLBURTONNCLIA [id number] [place] [address] [place] CO2 [Moles/Vol] 20 mmol/L Low 22-30 [facility] Comment on above: Order Comment: Heber bruce Type: BLOOD SPECIMENOrdering Facility: [facility] Address: [address] [place] [address] Performed By: #### 1 9123-9, 64942-8 ####[facility] [id number] [place] [address] [place] Creatinine [Mass/Vol] 0.88 mg/dL Normal 0.58-0.96 [facility] Comment on above: Order Comment: Speci men Type: BLOOD SPECIMENOrdering Facility: [facility] Address: [address] [place] [address] Performed By: #### 1 9123-9, 71441-8 ####[facility] [id number] [place] [address] [place] Creatinine and Glomerular filtration rate.predicted panel (S/P/Bld) 70 mL/min/1.73m??? Normal >=60 [facility] Comment on above: Order Comment: Heber bruce Type: BLOOD SPECIMENOrdering Facility: [facility] Address: [address] [place] [address] Result Comment: [place] mated Glomerular Filtration Rate [...] actual GFR. Performed By: #### 1 9123-9, 22594-7 ####[facility] RIVERNCLIA [id number] [place] [address] [place] Glucose [Mass/Vol] 110 mg/dL High 74-99 [facility] Comment on above: Order Comment: Speci men Type: BLOOD SPECIMENOrdering Facility: [facility] Address: [address] [place], [place] [id number] Result Comment: The [place] Diabetes Association (ADA) provides guidance for cutoff [...] Standards of Medical Care in Diabetes 2016, [place] Diabetes Association. Diabetes Care. 2016.39(Suppl 1). Performed By: #### 1 9123-9, 34370-5 ####[facility] SYSTEML[facility] [id number] [place] [address] [place] Potassium [Moles/Vol] 4.5 mmol/L Normal 3.7-5.1 [facility] Comment on above: Order Comment: Heber bruce Type: BLOOD SPECIMENOrdering Facility: [facility] Address: [address] [place], [place] [address] Performed By: #### 1 9123-9, 26498-5 ####[facility] PETERSBURGWMELIA [id number] [place] [address] [place] Protein [Mass/Vol] 7.4 g/dL Normal 6.3-8.0 [facility] Comment on above: Order Comment: Heber bruce Type: BLOOD SPECIMENOrdering Facility: [facility] Address: [address] [place], [place] [address] Performed By: #### 1 9123-9, ####[facility] MILLWNCLIA [id number] [place] [address] [place] Sodium [Moles/Vol] 140 mmol/L Normal 136-144 [facility] Comment on above: Order Comment: Heber men Type: BLOOD SPECIMENOrdering Facility: [facility] Address: [address] [place] [address] Performed By: #### 1 9123-9, 54031-1 ####[facility] [id number] [place] [address] [place] Urea nitrogen [Mass/Vol] 24 mg/dL High 7-21 [facility] Comment on above: Order Comment: Shelbyi men Type: BLOOD SPECIMENOrdering Facility: [facility] Address: [address] [place] [address] Performed By: #### 1 9123-9, 87704-4 ####[facility] [id number] [place] [address] [place] HbA1c (Bld)on 02-02-2025 Average glucose Estimated from glycated hemoglobin (Bld) [Mass/Vol] 189 mg/dL Normal [facility] Comment on above: Order Comment: Heber bruce Type: BLOOD SPECIMENOrdering Facility: [facility] Address: [address] [place] [address] Result Comment: eAG: (Estimated average glucose) is a calculated value from HgbA1c and is new accounts banking representative of the average blood glucose level in the last 2-3 month period. Performed By: #### 5 5454-3 ####[facility] LABCLIA [id number] [place] [address] [place] HbA1c (Bld) [Mass fraction] 8.2 % High 4.3-5.6 [facility] Comment on above: Order Comment: Heber janis Type: BLOOD SPECIMENOrdering Facility: [facility] Address: [address] [place] [address] Result Comment: Pita ican Diabetes Association guidelines indicate that patients with HgbA1c in the range 5.7-6.4% are at increased risk for development of diabetes, and intervention by lifestyle modification may be beneficial. HgbA1c greater or equal to 6.5% is considered diagnostic of diabetes. Performed By: #### 5 5454-3 ####[facility] LABCLIA [id number] [facility] [address], [place] [address] [facility] [place] Lipid 1996 panelon 5 Cholesterol [Mass/Vol] 137 mg/dL Normal <200 [facility] Comment on above: Order Comment: Speci men Type: BLOOD SPECIMENOrdering Facility: [facility] Address: [address] [place] [address] Result Comment: <200 mg/dL, Desirable 200-239 mg/dL, Borderline high >239 mg/dL, High Performed By: #### 2 4331-1 ####[facility] LABCLIA [id number] [facility] [address], [place] [id number] [place] [address] OF [place]#### 3016-3 ####[facility] LABCLIA [id number] [address], [address] STATES OF [place] Cholesterol in HDL [Mass/Vol] 48 mg/dL Normal >39 [facility] Comment on above: Order Comment: Speci men Type: BLOOD SPECIMENOrdering Facility: [facility] Address: [address] [place] [address] Result Comment: 40-5 9 mg/dL, Acceptable >59 mg/dL, High: Negative risk factor for coronary heart disease <40 mg/dL, Low: Positive risk factor for coronary heart disease Performed By: #### 2 4331-1 ####[facility] LABCLIA [id number] [facility] [address], [facility]95 [place] [phone] [place] [address] [place]#### 3016-3 ####[facility] LABCLIA [id number] [place] [id number] [place] OF [place] Cholesterol in LDL [Mass/Vol] 74 mg/dL Normal <100 [facility] Comment on above: Order Comment: Speci men Type: BLOOD SPECIMENOrdering Facility: [facility] Address: [address] [place] [address] Result Comment: <100 mg/dL, Optimal 100-129 mg/dL, Near optimal/above optimal 130-159 mg/dL, Borderline high 160-189 mg/dL, High >189 mg/dL, Very high Secondary prevention optimal LDL Cholesterol levels are recommended to be <70 mg/dL LDL cholesterol is calculated using the Rodriges-NIH equation. Performed By: #### 2 4331-1 ####[facility] LABCLIA [id number] [address] [id number] [place] [address]#### 3016-3 ####[facility] LABIA [id number] [address] STATES [facility] Cholesterol in LDL/Cholesterol in HDL [Mass ratio] 1.54 {ratio} Normal <2.54 [facility] Comment on above: Order Comment: Speci men Type: BLOOD SPECIMENOrdering Facility: [facility] Address: [address] [place] [address] Result Comment: Refe rence: 1. National Cholesterol Education Program ATP III Guideline At-A-Glance Quick Desk Reference: National Heart, Lung, and Blood Pesotum. National Institutes of Health. 2001: NIH Publication No. 01-3305. 2. An International Atherosclerosis Society position paper: global recommendations for the management of dyslipidemia: executive summary, Atherosclerosis. 2014: 232(2):410-413. Performed By: #### 2 4331-1 ####[facility] LABIA [id number] [id number] [place] [address] [place]#### 3016-3 ####[facility] LABCLIA [id number] [facility] [address], [facility] [place] Cholesterol in VLDL [Mass/Vol] 11 mg/dL Normal <30 [facility] Comment on above: Order Comment: Speci men Type: BLOOD SPECIMENOrdering Facility: [facility] Address: [address] [place] [address] Performed By: #### 2 4331-1 ####[facility] LABCLIA [id number] [facility] [address], [facility]95 [facility] [id number] [address] STATES OF [place]#### 3016-3 ####[facility] LABCLIA [id number] [address] STATES [facility] Cholesterol non HDL [Mass/Vol] 89 mg/dL Normal <130 [facility] Comment on above: Order Comment: Speci men Type: BLOOD SPECIMENOrdering Facility: [facility] Address: [address] [place] [address] Result Comment: <130 mg/dL, Optimal 130-159 mg/dL, Near optimal/above optimal 160-189 mg/dL, Borderline high 190-219 mg/dL, High >219 mg/dL, Very high Secondary prevention optimal non HDL Cholesterol levels are recommended to be <100 mg/dL Performed By: #### 2 4331-1 ####[facility] LABCLIA [id number] [facility] [address], [facility]95 [place] [facility] [id number] [address] STATES OF [place]#### 3016-3 ####[facility] LABCLIA [id number] [facility] [place] [id number] [place] Cholesterol.total/ Cholesterol in HDL [Mass ratio] 2.85 {ratio} Normal <5.10 [facility] Comment on above: Order Comment: Speci men Type: BLOOD SPECIMENOrdering Facility: [facility] Address: [address] [place], [place] [address] Performed By: #### 2 4331-1 ####[facility] LABCLIA [id number] [facility] [address] [place] [address] [place] [facility] [id number] [place] [address] [place]#### 3016-3 ####[facility] LABCLIA [id number] [place] [address] [place] FASTING TIME 12 hrs Normal [facility] Comment on above: Order Comment: Speci men Type: BLOOD SPECIMENOrdering Facility: [facility] Address: [address] [place] [address] Performed By: #### 2 4331-1 ####[facility] LABCLIA [id number] [facility] [address], [facility]95 [place] [phone] [place] [address] [place]#### 3016-3 ####[facility] LABCLIA [id number] [facility] [address], [facility]95 [place] Triglyceride [Mass/Vol] 73 mg/dL Normal <150 [facility] Comment on above: Order Comment: Speci men Type: BLOOD SPECIMENOrdering Facility: [facility] Address: [address] [place], [place] [address] Result Comment: <150 mg/dL, Normal 150-199 mg/dL, Borderline high 200-499 mg/dL, High >499 mg/dL, Very high Performed By: #### 2 4331-1 ####[facility] LABCLIA [id number] [facility] [address] [place] [address] [place] [facility] [id number] [place] [address] [place]#### 3016-3 ####[facility] [id number] [place] [address] [place] Magnesium SerPl-mCncon 02-02 Magnesium [Mass/Vol] 1.6 mg/dL Low 1.7-2.3 [facility] Comment on above: Order Comment: Speci men Type: BLOOD SPECIMENOrdering Facility: [facility] Address: [address] [place] [address] Performed By: #### 1 9123-9, 65052-2 ####[facility] [id number] [place] [address] [place] TSH SerPl-aCncon 02-02-2025 TSH Qn 6.410 m[IU]/L High 0.270-4.200 [facility] Comment on above: Order Comment: Speci men Type: BLOOD SPECIMENOrdering Facility: [facility] Address: [address] [place] [address] Performed By: #### 2 4331-1 ####[facility] [id number] [place] [address] [place] [facility] [id number] [place] [address] [place]#### 3016-3 ####[facility]IA [id number] [place] [id number] [place] OF [place] CNOVon 08-03-2024 CNOV Office Visit (INTMWS ) ----- BARBARA ALLEN ([id number]) 1955 F Date Time Provider Department 08/03/24 2:00 PM JILLIAN MOJICA INTVINNY During your visit today, we recorded the following information about you: Pulse Respiration Blood pressure Weight 65/minute 16/minute 114/61 111.6 kg Jillian Mojica 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 [facility]. Defers [...] potassium chloride (more content not included)... Normal [facility] 25(OH)D3 [facility] 2023 25-hydroxyvitamin D3 [Mass/Vol] 37.0 ng/mL Normal 31.0-80.0 [facility] Comment on above: Order Comment: Speci men Type: BLOOD SPECIMENOrdering Facility: [facility] Address: [address] [place] [address] Performed By: #### 1 989-3 ####[facility] LABCLIA [id number] [facility] [place] [address] [place] ALBUMIN/CREATININE RATIO, UR INE 07-22-2024 Albumin DL <= 20 mg/L (U) [Mass/Vol] 1218.1 mg/L Normal [facility] Comment on above: Order Comment: Speci men Type: URINE SPECIMENOrdering Facility: [facility] Address: [address] [place] [address] Performed By: #### U ACR ####[facility] LABCLIA [id number] [place] [id number] [place] Albumin/Creatinine (U) [Mass ratio] 2654 mg/g High <30 [facility] Comment on above: Order Comment: Speci men Type: URINE SPECIMENOrdering Facility: [facility] Address: [address] [place] [address] Result Comment: Adul t Male and Female Nephrotic Criteria: <30 mg/g is considered normal to mildly increased 30-300 mg/g is considered moderately increased >300 mg/g is considered severely increased KDIGO. (2013). KDIGO 2012 Clinical Practice Guideline for the Evaluation and Management of Chronic Kidney Disease. Official Journal of the International Society of Nephrology, 3(1), 1-150. Performed By: #### U ACR ####[facility] LABCLIA [id number] [place] [address] [place] Creatinine (U) [Mass/Vol] 45.9 mg/dL Normal 20.0-300.0 [facility] Comment on above: Order Comment: Speci men Type: URINE SPECIMENOrdering Facility: [facility] Address: [address] [place] [address] Performed By: #### U ACR ####[facility] LABCLIA [id number] [place] [address] [place] CBC panel Auto (Bld)on 07-22 Erythrocyte distribution width (RBC) [Ratio] 13.3 % Normal 11.5-15.0 [facility] Comment on above: Order Comment: Speci men Type: BLOOD SPECIMENOrdering Facility: [facility] Address: [address] [place] [address] Performed By: #### 5 8410-2 ####[facility] [id number] [place] [address] [place] Hematocrit (Bld) [Volume fraction] 36.9 % Normal 36.0-46.0 [facility] Comment on above: Order Comment: Speci men Type: BLOOD SPECIMENOrdering Facility: [facility] Address: [address] [place] [address] Performed By: #### 5 8410-2 ####[facility] JAROD [id number] [place] [address] [place] Hemoglobin (Bld) [Mass/Vol] 12.1 g/dL Normal 11.5-15.5 [facility] Comment on above: Order Comment: Speci men Type: BLOOD SPECIMENOrdering Facility: [facility] Address: [address] [place], [place] [address] Performed By: #### 5 8410-2 ####[facility] RIVERRAOULNunu [id number] [place] [address] [place] MCH (RBC) [Entitic mass] 28.4 pg Normal 26.0-34.0 [facility] Comment on above: Order Comment: Speci men Type: BLOOD SPECIMENOrdering Facility: [facility] Address: [address] [place] [address] Performed By: #### 5 8410-2 ####[facility] [id number] [address] STATES OF [place] MCHC (RBC) [Mass/Vol] 32.8 g/dL Normal 30.5-36.0 [facility] Comment on above: Order Comment: Speci men Type: BLOOD SPECIMENOrdering Facility: [facility] Address: [address] [place] [address] Performed By: #### 5 8410-2 ####[facility] RIVERNCLIA [id number] [place] [address] [place] MCV (RBC) [Entitic vol] 86.6 fL Normal 80.0-100.0 [facility] Comment on above: Order Comment: Speci men Type: BLOOD SPECIMENOrdering Facility: [facility] Address: [address] [place] [address] Performed By: #### 5 8410-2 ####[facility] MILLTOWNCLIA [id number] [place] [address] [place] Nucleated RBC (Bld) [#/Vol] 10*3/uL Normal <0.01 [facility] Comment on above: Order Comment: Speci men Type: BLOOD SPECIMENOrdering Facility: [facility] Address: [address] [place] [address] Performed By: #### 5 8410-2 ####[facility] MILLWNCLIA [id number] [place] [address] [place] Platelet mean volume (Bld) [Entitic vol] 10.0 fL Normal 9.0-12.7 [facility] Comment on above: Order Comment: Speci men Type: BLOOD SPECIMENOrdering Facility: [facility] Address: [address] [place] [address] Performed By: #### 5 8410-2 ####[facility] PETERSBURGWNCLIA [id number] [place] [address] [place] Platelets (Bld) [#/Vol] 209 10*3/uL Normal 150-400 [facility] Comment on above: Order Comment: Speci men Type: BLOOD SPECIMENOrdering Facility: [facility] Address: [address] [place] [address] Performed By: #### 5 8410-2 ####[facility] MILLTOWNCLIA [id number] [place] [address] [place] RBC (Bld) [#/Vol] 4.26 10*6/uL Normal 3.90-5.20 [facility] Comment on above: Order Comment: Speci men Type: BLOOD SPECIMENOrdering Facility: [facility] Address: [address] [place] [address] Performed By: #### 5 8410-2 ####[facility] RIVERNCLIA [id number] [place] [address] [place] WBC (Bld) [#/Vol] 7.45 10*3/uL Normal 3.70-11.00 [facility] Comment on above: Order Comment: Speci men Type: BLOOD SPECIMENOrdering Facility: [facility] Address: [address] [place] [address] Performed By: #### 5 8410-2 ####[facility] SYSTEMLIA [id number] [place] [address] [place] Comprehensive metabolic 2000 panelon 07-22-2024 Albumin [Mass/Vol] 4.1 g/dL Normal 3.9-4.9 [facility] Comment on above: Order Comment: Speci men Type: BLOOD SPECIMENOrdering Facility: [facility] Address: [address] [place] [address] Performed By: #### 2 4323-8, 62144-1 ####[facility] [id number] [place] [address] [place] ALP [Catalytic activity/Vol] 122 U/L Normal 34-123 [facility] Comment on above: Order Comment: Speci men Type: BLOOD SPECIMENOrdering Facility: [facility] Address: [address] [place] [address] Performed By: #### 2 4323-8, 55815-6 ####[facility] SYSTEMLIA [id number] [address] STATES [place] ALT [Catalytic activity/Vol] 8 U/L Normal 7-38 [facility] Comment on above: Order Comment: Speci men Type: BLOOD SPECIMENOrdering Facility: [facility] Address: [address] [place] [address] Performed By: #### 2 4323-8, 44117-1 ####[facility] RIVERNCLIA [id number] [place] [address] [place] Anion gap [Moles/Vol] 14 mmol/L Normal 8-15 [facility] Comment on above: Order Comment: Speci men Type: BLOOD SPECIMENOrdering Facility: [facility] Address: [address] [place] [address] Performed By: #### 2 4323-8, 36776-3 ####[facility] MILLTOWRAOULLIA [id number] [place] [address] [place] AST [Catalytic activity/Vol] 11 U/L Low 13-35 [facility] Comment on above: Order Comment: Speci men Type: BLOOD SPECIMENOrdering Facility: [facility] Address: [address] [place] [address] Performed By: #### 2 4323-8, ####[facility] MILLCAINWRAOULLIA [id number] [place] [address] [place] Bilirubin [Mass/Vol] 0.5 mg/dL Normal 0.2-1.3 [facility] Comment on above: Order Comment: Speci men Type: BLOOD SPECIMENOrdering Facility: [facility] Address: [address] [place] [address] Performed By: #### 2 4323-8, ####[facility] MILLWRAOULLIA [id number] [place] [address] [place] Calcium [Mass/Vol] 9.6 mg/dL Normal 8.5-10.2 [facility] Comment on above: Order Comment: Speci men Type: BLOOD SPECIMENOrdering Facility: [facility] Address: [address] [place] [address] Performed By: #### 2 4323-8, ####[facility] MILLTOWNCLIA [id number] [place] [address] [place] Chloride [Moles/Vol] 104 mmol/L Normal 98-107 [facility] Comment on above: Order Comment: Speci men Type: BLOOD SPECIMENOrdering Facility: [facility] Address: [address] [place] [address] Performed By: #### 2 4323-8, ####[facility] [id number] [place] [address] [place] CO2 [Moles/Vol] 21 mmol/L Low 22-30 [facility] Comment on above: Order Comment: Speci men Type: BLOOD SPECIMENOrdering Facility: [facility] Address: [address] [place] [address] Performed By: #### 2 4323-8, ####[facility] [id number] [address] [place] Creatinine [Mass/Vol] 0.84 mg/dL Normal 0.58-0.96 [facility] Comment on above: Order Comment: Speci men Type: BLOOD SPECIMENOrdering Facility: [facility] Address: [address] [place] [address] Performed By: #### 2 4323-8, ####[facility] [id number] [address] [facility] Creatinine and Glomerular filtration rate.predicted panel (S/P/Bld) 74 mL/min/1.73m??? Normal >=60 [facility] Comment on above: Order Comment: Speci men Type: BLOOD SPECIMENOrdering Facility: [facility] Address: [address] [place] [address] Result Comment: [place] mated Glomerular Filtration Rate [...] actual GFR. Performed By: #### 2 4323-8, 03966-3 ####[facility] BRUCEWNCLIA [id number] [place] [address] [place] Glucose [Mass/Vol] 79 mg/dL Normal 74-99 [facility] Comment on above: Order Comment: Speci men Type: BLOOD SPECIMENOrdering Facility: [facility] Address: [address] [place] [address] Result Comment: The [place] Diabetes Association (ADA) provides guidance for cutoff [...] Standards of Medical Care in Diabetes 2016, [place] Diabetes Association. Diabetes Care. 2016.39(Suppl 1). Performed By: #### 2 4323-8, 76348-9 ####[facility] [id number] [place] [address] [place] Potassium [Moles/Vol] 3.9 mmol/L Normal 3.7-5.1 [facility] Comment on above: Order Comment: Speci men Type: BLOOD SPECIMENOrdering Facility: [facility] Address: [address] [place] [address] Performed By: #### 2 4323-8, ####[facility] RIVERNCLIA [id number] [place] [address] [place] Protein [Mass/Vol] 7.5 g/dL Normal 6.3-8.0 [facility] Comment on above: Order Comment: Shelbyi men Type: BLOOD SPECIMENOrdering Facility: [facility] Address: [address] [place] [id number] Performed By: #### 2 4323-8, 62679-8 ####[facility] [id number] [place] [address] [place] Sodium [Moles/Vol] 139 mmol/L Normal 136-144 [facility] Comment on above: Order Comment: Speci men Type: BLOOD SPECIMENOrdering Facility: [facility] Address: [address] [place] [address] Performed By: #### 2 4323-8, ####[facility] [id number] [place] [address] [place] Urea nitrogen [Mass/Vol] 23 mg/dL High 7-21 [facility] Comment on above: Order Comment: Speci men Type: BLOOD SPECIMENOrdering Facility: [facility] Address: [address] [place] [address] Performed By: #### 2 4323-8, 36558-5 ####[facility] [id number] [place] [address] [place] HbA1c (Bld)on 07-22-2024 Average glucose Estimated from glycated hemoglobin (Bld) [Mass/Vol] 209 mg/dL Normal [facility] Comment on above: Order Comment: Speci men Type: BLOOD SPECIMENOrdering Facility: [facility] Address: [address] [place] [address] Result Comment: eAG: (Estimated average glucose) is a calculated value from HgbA1c and is new accounts banking representative of the average blood glucose level in the last 2-3 month period. Performed By: #### 5 5454-3 ####[facility] LABCLIA [id number] [place] [address] [place] HbA1c (Bld) [Mass fraction] 8.9 % High 4.3-5.6 [facility] Comment on above: Order Comment: Speci men Type: BLOOD SPECIMENOrdering Facility: [facility] Address: [address] [place] [address] Result Comment: [place] Diabetes Association guidelines indicate that patients with HgbA1c in the range 5.7-6.4% are at increased risk for development of diabetes, and intervention by lifestyle modification may be beneficial. HgbA1c greater or equal to 6.5% is considered diagnostic of diabetes. Performed By: #### 5 5454-3 ####[facility] LABCLIA [id number] [address] Lipid 1996 panelon 4 Cholesterol [Mass/Vol] 160 mg/dL Normal <200 [facility] Comment on above: Order Comment: Heber men Type: BLOOD SPECIMENOrdering Facility: [facility] Address: [address] [place] [address] Result Comment: <200 mg/dL, Desirable 200-239 mg/dL, Borderline high >239 mg/dL, High Performed By: #### 3 016-3 ####[facility] LABCLIA [id number] [place] [address] [place]#### 08558-6 ####[facility] LABCLIA [id number] [address] OF [facility] [id number] [address] [place] Cholesterol in HDL [Mass/Vol] 53 mg/dL Normal >39 [facility] Comment on above: Order Comment: Heber men Type: BLOOD SPECIMENOrdering Facility: [facility] Address: [address] [place] [address] Result Comment: 40-5 9 mg/dL, Acceptable >59 mg/dL, High: Negative risk factor for coronary heart disease <40 mg/dL, Low: Positive risk factor for coronary heart disease Performed By: #### 3 016-3 ####[facility] LABCLIA [id number] [address] [place]#### 98428-3 ####[facility] LABCLIA [id number] [address] [facility] [id number] [address] STATES OF [facility] Cholesterol in LDL [Mass/Vol] 89 mg/dL Normal <100 [facility] Comment on above: Order Comment: Speci men Type: BLOOD SPECIMENOrdering Facility: [facility] Address: [address] [place] [address] Result Comment: <100 mg/dL, Optimal 100-129 mg/dL, Near optimal/above optimal 130-159 mg/dL, Borderline high 160-189 mg/dL, High >189 mg/dL, Very high Secondary prevention optimal LDL Cholesterol levels are recommended to be < 70 mg/dL Performed By: #### 3 016-3 ####[facility] LABCLIA [id number] [address]#### 78119-5 ####[facility] LABCLIA [id number] [address] [id number] [address] Cholesterol in LDL/Cholesterol in HDL [Mass ratio] 1.68 {ratio} Normal <2.54 [facility] Comment on above: Order Comment: Speci men Type: BLOOD SPECIMENOrdering Facility: [facility] Address: [address] [place] [address] Result Comment: Refe rence: 1. National Cholesterol Education Program ATP III Guideline At-A-Glance Quick Desk Reference: National Heart, Lung, and Blood Pesotum. National Institutes of Health. 2001: NIH Publication No. 01-3305. 2. An International Atherosclerosis Society position paper: global recommendations for the management of dyslipidemia: executive summary, Atherosclerosis. 2014: 232(2):410-413. Performed By: #### 3 016-3 ####[facility] LABCLIA [id number] [place] [id number] [place]#### 55272-4 ####[facility] LABCLIA [id number] [place] [address] [facility] [id number] [place] [address] [place] Cholesterol in VLDL [Mass/Vol] 18 mg/dL Normal <30 [facility] Comment on above: Order Comment: Speci men Type: BLOOD SPECIMENOrdering Facility: [facility] Address: [address] [place] [address] Performed By: #### 3 016-3 ####[facility] LABCLIA [id number] [place] [address] [place]#### 25534-4 ####[facility] LABCLIA [id number] [address] STATES [facility] [id number] [place] [address] [place] Cholesterol non HDL [Mass/Vol] 107 mg/dL Normal <130 [facility] Comment on above: Order Comment: Speci men Type: BLOOD SPECIMENOrdering Facility: [facility] Address: [address] [place] [address] Result Comment: <130 mg/dL, Optimal 130-159 mg/dL, Near optimal/above optimal 160-189 mg/dL, Borderline high 190-219 mg/dL, High >219 mg/dL, Very high Secondary prevention optimal non HDL Cholesterol levels are recommended to be <100 mg/dL Performed By: #### 3 016-3 ####[facility] LABCLIA [id number] [place] [address] [place]#### 14011-0 ####[facility] LABCLIA [id number] [place] [address] [id number] [place] [address] [place] Cholesterol.total/ Cholesterol in HDL [Mass ratio] 3.02 {ratio} Normal <5.10 [facility] Comment on above: Order Comment: Speci men Type: BLOOD SPECIMENOrdering Facility: [facility] Address: [address] [place] [address] Performed By: #### 3 016-3 ####[facility] LABCLIA [id number] [place] [address] [place]#### 88078-2 ####[facility] LABCLIA [id number] [address] STATES [facility] [id number] [place] [address] [place] FASTING TIME 12 hrs Normal [facility] Comment on above: Order Comment: Speci men Type: BLOOD SPECIMENOrdering Facility: [facility] Address: [address] [place] [address] Performed By: #### 3 016-3 ####[facility] LABCLIA [id number] [place] [address] [place]#### 93681-0 ####[facility] LABCLIA [id number] [place] [address] [place] [facility] [id number] [place] [address] [place] Triglyceride [Mass/Vol] 89 mg/dL Normal <150 [facility] Comment on above: Order Comment: Speci men Type: BLOOD SPECIMENOrdering Facility: [facility] Address: [address] [place] [address] Result Comment: <150 mg/dL, Normal 150-199 mg/dL, Borderline high 200-499 mg/dL, High >499 mg/dL, Very high Performed By: #### 3 016-3 ####[facility] LABCLIA [id number] [place] [address] [place]#### 13495-2 ####[facility] LABCLIA [id number] [place] [id number] [place] [facility] [id number] [place] [address] [place] Magnesium SerPl-mCncon 07-22 Magnesium [Mass/Vol] 1.7 mg/dL Normal 1.7-2.3 [facility] Comment on above: Order Comment: Speci men Type: BLOOD SPECIMENOrdering Facility: [facility] Address: [address] [place] [address] Performed By: #### 2 4323-8, 48097-8 ####[facility] [id number] [place] [address] [place] TSH SerPl-aCncon 07-22-2024 TSH Qn 8.150 m[IU]/L High 0.270-4.200 [facility] Comment on above: Order Comment: Speci men Type: BLOOD SPECIMENOrdering Facility: [facility] Address: [address] [place] [address] Performed By: #### 3 016-3 ####[facility] LABCLIA [id number] [place] [address] [place]#### 34514-3 ####[facility] LABIA [id number] [place] [id number] [place] [facility] [id number] [place] [address] [place] Urinalysis complete panel (U )on 07-22-2024 BACTERIA UL >9821 High Negative [facility] Comment on above: Order Comment: Speci men Type: URINE SPECIMENOrdering Facility: [facility] Address: [address] [place] [address] Performed By: #### 2 4356-8 ####[facility] LABCLIA [id number] [place] [address] [place] Bilirubin Ql (U) Negative Normal Negative [facility] Comment on above: Order Comment: Speci men Type: URINE SPECIMENOrdering Facility: [facility] Address: [address] [place] [address] Performed By: #### 2 4356-8 ####[facility] LABCLIA [id number] [place] [address] [place] Clarity (Unsp spec) Cloudy Abnormal Clear [facility] Comment on above: Order Comment: Speci men Type: URINE SPECIMENOrdering Facility: [facility] Address: [address] [place] [address] Performed By: #### 2 4356-8 ####[facility] LABCLIA [id number] [place] [address] [place] Color (U) Yellow Normal Yellow [facility] Comment on above: Order Comment: Speci men Type: URINE SPECIMENOrdering Facility: [facility] Address: [address] [place] [address] Performed By: #### 2 4356-8 ####[facility] LABCLIA [id number] [place] [address] [place] Epithelial cells LM.HPF (Urine sed) [#/Area] Few Normal [facility] Comment on above: Order Comment: Speci men Type: URINE SPECIMENOrdering Facility: [facility] Address: [address] [place] [address] Performed By: #### 2 4356-8 ####[facility] LABCLIA [id number] [place] [address] [place] Glucose Test strip (U) [Mass/Vol] Negative Normal Negative [facility] Comment on above: Order Comment: Speci men Type: URINE SPECIMENOrdering Facility: [facility] Address: [address] [place] [address] Performed By: #### 2 4356-8 ####[facility] LABCLIA [id number] [place] [address] [place] Hemoglobin Ql (U) 1+ Abnormal Negative [facility] Comment on above: Order Comment: Speci men Type: URINE SPECIMENOrdering Facility: [facility] Address: [address] [place] [address] Performed By: #### 2 4356-8 ####[facility] LABCLIA [id number] [place] [address] [place] Hyaline casts (Urine sed) [#/Area] 1-3 /LPF Abnormal 0 /LPF [facility] Comment on above: Order Comment: Speci men Type: URINE SPECIMENOrdering Facility: [facility] Address: [address] [place] [address] Performed By: #### 2 4356-8 ####[facility] LABCLIA [id number] [place] [address] [place] Ketones Ql (U) Negative Normal Negative [facility] Comment on above: Order Comment: Speci men Type: URINE SPECIMENOrdering Facility: [facility] Address: [address] [place] [address] Performed By: #### 2 4356-8 ####[facility] LABCLIA [id number] [place] [address] [place] Leukocyte esterase Test strip Ql (U) 1+ Abnormal Negative [facility] Comment on above: Order Comment: Speci men Type: URINE SPECIMENOrdering Facility: [facility] Address: [address] [place] [address] Performed By: #### 2 4356-8 ####[facility] LABCLIA [id number] [place] [address] [place] Nitrite Ql (U) Positive Abnormal Negative [facility] Comment on above: Order Comment: Speci men Type: URINE SPECIMENOrdering Facility: [facility] Address: [address] [place] [address] Performed By: #### 2 4356-8 ####[facility] LABIA [id number] [place] [address] [place] pH (U) 7.5 [pH] Normal <8.5 [facility] Comment on above: Order Comment: Speci men Type: URINE SPECIMENOrdering Facility: [facility] Address: [address] [place] [address] Performed By: #### 2 4356-8 ####[facility] LABIA [id number] [place] [address] [place] Protein (U) [Mass/Vol] 3+ Abnormal Negative [facility] Comment on above: Order Comment: Speci men Type: URINE SPECIMENOrdering Facility: [facility] Address: [address] [place] [address] Performed By: #### 2 4356-8 ####[facility] LABIA [id number] [place] [address] [place] RBC LM.HPF (Urine sed) [#/Area] 6-10 /HPF Abnormal 0-2 /HPF [facility] Comment on above: Order Comment: Speci men Type: URINE SPECIMENOrdering Facility: [facility] Address: [address] [place] [address] Performed By: #### 2 4356-8 ####[facility] LABIA [id number] [place] [address] [place] Specific gravity (U) [Rel density] 1.013 Normal 1.005-1.030 [facility] Comment on above: Order Comment: Speci men Type: URINE SPECIMENOrdering Facility: [facility] Address: [address] [place] [address] Performed By: #### 2 4356-8 ####[facility] LABIA [id number] [place] [address] [place] Urobilinogen Ql (U) 0.2 EU/dL Normal 0.2-1.0 EU/dL [facility] Comment on above: Order Comment: Speci men Type: URINE SPECIMENOrdering Facility: [facility] Address: [address] [place] [address] Performed By: #### 2 4356-8 ####[facility] LAB[facility] [id number] [place] [address] [place] WBC LM.HPF (Urine sed) [#/Area] /[HPF] Abnormal 0-5 /HPF [facility] Comment on above: Order Comment: Speci men Type: URINE SPECIMENOrdering Facility: [facility] Address: [address] [place] [address] Performed By: #### 2 4356-8 ####[facility] [id number] [address] [place] [facility] BARBARA ALLEN ([id number]) 1955 F Date Time Provider Department 06/03/24 RODRIGO SEPULVEDA INTWS During your visit today, we recorded the following information about you: Yasmeen Whatley LPN 06/03/2024 11:31 AM Signed [facility] pharmacy calling asking to have directions [...] every other day. - blood sugar diagnostic ([employer] ULTRA TEST) test strip Use as instructed [...] Status:Closed by NORMA KIM on 06/04/24 Normal [facility] Cardiology Visit Reporton Cardiology Visit Report [facility] [address] [place] [address] OFFICE VISIT Date of Service: 02/11/24 MR#: [id number] Acct: [id number] Name: BARBARA ALLEN Rep #: [id number] : 1955 Provider: SHAILESH saenz Age/Sex: 68/F Location: [facility] Status: Signed [facility] History of Present Illness Details: This is a 68-year-old female who presents to the office today for a cardiovascular follow-up visit. She has a history of atrial fibrillation, congestive heart failure, hyperlipidemia, hypertension,pulmonary hypertension, and diabetes. She also has a history of obstructive sleep apnea. 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 Normal [facility] Vital Signs Date Time Vital Sign Value Performing Clinician Facility 02-17-2025 09:54-0400 Body height 166.4 cm Rodrigo Sepulveda MD Work Phone: [facility] 02-17-2025 09:54-0400 Body mass index (BMI) [Ratio] 39.99 kg/m2 Rodrigo Sepulveda MD Work Phone: [facility] 02-17-2025 09:54-0400 Body temperature 97.9 [degF] Rodrigo Sepulveda MD Work Phone: [facility] 02-17-2025 09:54-0400 Body weight 110.7 kg Rodrigo Sepulveda MD Work Phone: [facility] 02-17-2025 09:54-0400 Diastolic blood pressure 64 mm[Hg] Rodrigo Sepulveda MD Work Phone: [facility] 02-17-2025 09:54-0400 Heart rate 85 /min Rodrigo Sepulveda MD Work Phone: [facility] 02-17-2025 09:54-0400 Respiratory rate 14 /min Rodrigo Sepulveda MD Work Phone: [facility] 02-17-2025 09:54-0400 SaO2% (BldA) [Mass fraction] 97 % Rodrigo Sepulveda MD Work Phone: [facility] 02-17-2025 09:54-0400 Systolic blood pressure 128 mm[Hg] Rodrigo Sepulveda MD Work Phone: [facility] 02-04-2025 14:13-0400 Body height 167.[address] Rodrigo Sepulveda MD Work Phone: [facility] 02-04-2025 14:13-0400 Body mass index (BMI) [Ratio] 38.9 kg/m2 Dr. Rodrigo Sepulveda MD Work Phone: 8(465)[phone] [place] [address] 02-04-2025 14:13-0400 Body weight 109.[address] Rodrigo Sepulveda MD Work Phone: 9(054)849-993230 [place] [address] 02-04-2025 14:13-0400 Diastolic blood pressure 70 mm[Hg] Dr. Rodrigo Sepulveda MD Work Phone: [facility] 02-04-2025 14:13-0400 Heart rate 81 /min Dr. Rodrigo Sepulveda MD Work Phone: [facility] 02-04-2025 14:13-0400 Respiratory rate 18 /min Dr. Rodrigo Sepulveda MD Work Phone: 3(777)[phone] [place] [address] 02-04-2025 14:13-0400 SaO2% (BldA) [Mass fraction] 97 % Dr. Rodrigo Sepulveda MD Work Phone: [facility] 02-04-2025 14:13-0400 Systolic blood pressure 112 mm[Hg] Dr. Rodrigo Sepulveda MD Work Phone: [facility] 08-03-2024 14:00-0500 Body mass index (BMI) [Ratio] 40.32 kg/m2 Jillian Mojica [employer] Work Phone: [facility] 08-03-2024 14:00-0500 Body weight 111.6 kg Jillian Mojica [employer] Work Phone: [facility] 08-03-2024 14:00-0500 Diastolic blood pressure 61 mm[Hg] Jillian Mojica [employer] Work Phone: [facility] 08-03-2024 14:00-0500 Heart rate 65 /min Jillian Mojica [employer] Work Phone: [facility] 08-03-2024 14:00-0500 Respiratory rate 16 /min Jillian Mojica [employer] Work Phone: [facility] 08-03-2024 14:00-0500 Systolic blood pressure 114 mm[Hg] Jillian Mojica [employer] Work Phone: [facility] 01-29-2024 14:05-0400 Body mass index (BMI) [Ratio] 39.49 kg/m2 Rodrigo Sepulveda MD Work Phone: [facility] 01-29-2024 14:05-0400 Body temperature 96.49 [degF] Rodrigo Sepulveda MD Work Phone: [facility] 01-29-2024 14:05-0400 Body weight 109.32 kg Rodrigo Sepulveda MD Work Phone: [facility] 01-29-2024 14:05-0400 Diastolic blood pressure 64 mm[Hg] Rodrigo Sepulveda MD Work Phone: [facility] 01-29-2024 14:05-0400 Heart rate 87 /min Rodrigo Sepulveda MD Work Phone: [facility] 01-29-2024 14:05-0400 Respiratory rate 18 /min Rodrigo Sepulveda MD Work Phone: [facility] 01-29-2024 14:05-0400 SaO2% (BldA) [Mass fraction] 97 % Rodrigo Sepulveda MD Work Phone: [facility] 01-29-2024 14:05-0400 Systolic blood pressure 128 mm[Hg] Rodrigo Sepulveda MD Work Phone: [facility] 02-15-2023 13:49-0400 Body temperature 97.81 [degF] Rodrigo Sepulveda MD Work Phone: [facility] 02-15-2023 13:49-0400 Body weight 109.32 kg Rodrigo Sepulveda MD Work Phone: [facility] 02-15-2023 13:49-0400 Diastolic blood pressure 68 mm[Hg] Rodrigo Sepulveda MD Work Phone: [facility] 02-15-2023 13:49-0400 Heart rate 85 /min Rodrigo Sepulveda MD Work Phone: [facility] 02-15-2023 13:49-0400 Respiratory rate 18 /min Rodrigo Sepulveda MD Work Phone: [facility] 02-15-2023 13:49-0400 SaO2% (BldA) [Mass fraction] 96 % Rodrigo Sepulveda MD Work Phone: [facility] 02-15-2023 13:49-0400 Systolic blood pressure 124 mm[Hg] Rodrigo Sepulveda MD Work Phone: [facility] 02-12-2022 13:46-0400 Body weight 109.32 kg Rodrigo Sepulveda MD Work Phone: [facility] 02-12-2022 13:46-0400 Diastolic blood pressure 60 mm[Hg] Rodrigo Sepulveda MD Work Phone: [facility] 02-12-2022 13:46-0400 Heart rate 63 /min Rodrigo Sepulveda MD Work Phone: [facility] 02-12-2022 13:46-0400 SaO2% (BldA) [Mass fraction] 96 % Rodrigo Sepulveda MD Work Phone: [facility] 02-12-2022 13:46-0400 Systolic blood pressure 112 mm[Hg] Rodrigo Sepulveda MD Work Phone: [facility] 12-25-2021 10:54-0400 Body height 167.[address] Rodrigo Sepulveda Work Phone: [facility] Work Phone: 12-25-2021 10:54-0400 Body weight 106.[address] Rodrigo Sepulveda Work Phone: [facility] Work Phone: 12-25-2021 10:54-0400 Diastolic blood pressure 58 mm[Hg] Dr. Rodrigo Sepulveda Work Phone: [facility] Work Phone: 12-25-2021 10:54-0400 Heart rate 60 /min Dr. Rodrigo Sepulveda Work Phone: [facility] Work Phone: 12-25-2021 10:54-0400 Respiratory rate 18 /min Dr. Rodrigo Sepulveda Work Phone: [facility] Work Phone: 12-25-2021 10:54-0400 Systolic blood pressure 122 mm[Hg] Dr. Rordigo Sepulveda Work Phone: [facility] Work Phone: 02-27-2021 10:08-0400 Body mass index (BMI) [Ratio] 43.4 kg/m2 Dr. Rodrigo Sepulveda Work Phone: [facility] Work Phone: Encounters Encounter Date Encounter Type Care Provider Facility Start: 02-17-2025 End: 02-17-2025 Office outpatient visit 25 minutes Rodrigo Sepulveda MD Work Phone: [facility] [place] Comment on above: Controlled type 2 di abetes mellitus with microalbuminuria, with long-term current use of insulin (HCC) (Primary Dx); Pure hypercholesterolemia; Vitamin D deficiency; Essential hypertension; Acquired hypothyroidism; Longstanding persistent atrial fibrillation (HCC); Gastroesophageal reflux disease without esophagitis; Hypomagnesemia; Pulmonary hypertension (HCC); Severe obesity (BMI 35.0-39.9) with comorbidity ([facility]) Start: 02-17-2025 End: 02-17-2025 ambulatory RODRIGO SEPULVEDA Facility:[facility] Start: 02-04-2025 End: 02-04-[address] Milton Linton MD -[facility] Work Phone: Start: 02-04-2025 End: 02-04-2025 ambulatory Rodrigo Sepulveda Facility:[facility] Start: 02-02-2025 End: 02-02-2025 Coordination of care plan Josette Salcedo RN Work Phone: Clinical Data Management Manager Management Comment on above: Care Coordination Start: 02-02-2025 End: 02-02-2025 ambulatory Josette Salcedo RN Work Phone: Clinical Data Management Manager Management Start: 01-29-2025 End: 02-02-2025 Refill Jillian [...] End: 12-16-2024 ambulatory Vik Corey [facility] Work Phone: Pharmacy Medicine Start: 12-16-2024 End: 12-16-2024 Patient encounter procedure Vik Corey [facility] Work Phone: Pharmacy Medicine Comment on above: Care Coordination (P rob Management Review for Pharmacist Referral for Diabetes Management) Start: 12-08-2024 End: 01-08-2025 ambulatory Rodrigo Sepulveda MD Work Phone: [facility] [place] Start: 11-18-2024 End: 11-18-2024 ambulatory Vanessa Geoff Navarro MA [facility] Start: 11-18-2024 End: 11-18-2024 Patient encounter procedure Vanessa Navarro MA [facility] Comment on above: Population Health Na vigation Outreach ([employer] High Risk - Attempt 1 ) February 01 appointment Start: 08-03-2024 End: 08-03-2024 Office outpatient visit 25 minutes Jillianjonathon Mojica APRN.HOT DIE PICKER Work Phone: [facility] [place] Comment on above: Type 2 diabetes peace itus with microalbuminuria, with long-term current use of insulin (HCC) (Primary Dx); Essential hypertension; Pure hypercholesterolemia; Gastroesophageal reflux disease without esophagitis; Chronic anticoagulation; Longstanding persistent atrial fibrillation (HCC); Acute cystitis with hematuria; Encounter for immunization; Screening for colon cancer Start: 08-03-2024 End: 08-03-2024 ambulatory JILLIAN MOJICA Facility:[facility] Start: 07-22-2024 End: 07-22-2024 ambulatory RODRIGO SEPULVEDA Facility:[facility] Start: 06-03-2024 End: 06-04-2024 Telephone encounter Rodrigo Sepulveda MD Work Phone: [facility] [place] Comment on above: clarify rx direction s Start: 05-25-2024 End: 05-26-2024 Refill Rodrigo Sepulveda MD Work Phone: [facility] [place] Comment on above: Refill Request Start: 02-11-2024 End: 02-11-2024 ambulatory Evy Pascal NP Facility:[facility] Start: 01-29-2024 End: 01-29-2024 Patient encounter procedure Rodrigo Sepulveda MD Work Phone: [facility] [place] Comment on above: Medicare annual well ness visit, subsequent (Primary Dx); Controlled type 2 diabetes mellitus with microalbuminuria, with long-term current use of insulin (HCC); Pure hypercholesterolemia; Vitamin D deficiency; Screening for osteoporosis; Asymptomatic menopause; Encounter for immunization Start: 01-22-2024 Refill Benita Beltran [employer].COLLECTION TEAM LEAD Work Phone: [facility] [place] Comment on above: Refill Request Start: 01-08-2024 ambulatory Rodrigo carson MD Work Phone: [facility] [place] Start: 12-31-2023 ambulatory Rodrigo carson MD Work Phone: [facility] [place] Comment on above: Lantus Solostar Refill Request Start: 12-26-2023 [facility] Start: 12-26-2023 [facility] Start: 12-24-2023 Telephone encounter Rodrigo frances MD Work Phone: [facility] [place] Comment on above: Orders Start: 12-12-2023 Refill Rodrigo carson MD Work Phone: [facility] [place] Comment on above: Refill Request Start: 12-06-2023 Refill Rodrigo carson MD Work Phone: [facility] [place] Comment on above: Refill Request Start: 10-09-2023 Refill Rodrigo carson MD Work Phone: [facility] [place] Comment on above: Refill Request Start: 10-02-2023 Refill Jillian Yunior SCHMIDT.HOT DIE PICKER Work Phone: [facility] [place] Comment on above: Refill Request Start: 07-10-2023 ambulatory Rodrigo carson MD Work Phone: Internal [facility] [place] Comment on above: 2022 flu shot Start: 06-03-2023 Telephone encounter Rodrigo frances MD Work Phone: [facility] [place] Comment on above: Oxygen Order Start: 06-02-2023 ambulatory Jessica Barajas [facility] [place] Comment on above: Population Health Na vigation [...] Colon cancer screening Start: 01-30-2023 ambulatory Rodrigo carson MD Work Phone: [facility] [place] Start: 01-08-2023 Refill Jillian Mojica [employer] TE[employer]ER.H[employer] DIE PICKER Work Phone: [facility] [place] Comment on above: Refill Request Start: 11-26-2022 Refill Jillian Mojica [employer] TEACHER.H[employer] DIE PICKER Work Phone: [facility] [place] Comment on above: Refill Request Start: 10-03-2022 ambulatory Ida Felix MA [facility] [place] Comment on above: Population Health Na vigation Outreach ([employer] care gaps) Start: 09-04-2022 Refill Jillian Mojica [employer] TEACHER.HOT DIE PICKER Work Phone: [facility] [place] Comment on above: Refill Request Start: 08-06-2022 ambulatory Jillian Mojica [employer] TEACHER.HOT DIE PICKER Work Phone: [facility] Medicine [place] Comment on above: Lab work Start: 06-19-2022 ambulatory Vanessa Navarro MA [facility] [place] Comment on above: Population Health Na vigation Outreach ([employer] Care Gaps ) Start: 06-02-2022 Refill Rodrigo carson MD Work Phone: [facility] [place] Comment on above: Refill Request Start: 03-05-2022 Refill Lesly Pfeiffer [employer]ER .COLLECTION TEAM LEAD Work Phone: Internal Medicine [place] Comment on above: Refill Request Start: 02-28-2022 ambulatory Rodrigo carson MD Work Phone: [facility] [place] Start: 02-12-2022 End: 02-12-2022 Office outpatient visit 25 minutes Rodrigo Sepulveda MD Work Phone: [facility] Comment on above: Controlled type 2 di abetes mellitus with microalbuminuria, with long-term current use of insulin (HCC) (Primary Dx); Essential hypertension; Pure hypercholesterolemia; Stasis edema of both lower extremities; Acute on chronic diastolic congestive heart failure (HCC); Elevated TSH Start: 01-25-2022 Refill Jillian Mojica APRNSantaHOT DIE PICKER Work Phone: [facility] Comment on above: Refill Request Start: 01-23-2022 End: 01-23-[address] Rodrigo Sepulveda Work Phone: [facility] Start: 12-25-2021 End: 12-25-[address] Rodrigo Sepulveda Work Phone: [facility] Start: 11-23-2021 ambulatory Maggy Fritz MA [facility] Comment on above: Population Health Na vigation [...] Visit Annual PCP Team Chronic Disease Visit [facility] Start: 02-02-2026 Hepatitis B screening Urine Albumin:Creatinine Ratio [facility] Start: 02-02-2026 Hepatitis B surface antibody level LDL Cholesterol [facility] Start: 01-21-2026 End: 01-21-2026 Patient encounter procedure 01/21/2026 11:00 AM EDT Office Visit [facility] [place] [address] [place] [address] Rodrigo Sepulveda MD [address] [facility] [place], [place] [id number] 6 month follow u [facility] [place] Comment on above: [facility] Start: 08-03-2025 BP Controlled (<130/80) BP Controlled (<130/80) [facility] Start: 07-22-2025 Hepatitis B screening Urine Albumin:Creatinine Ratio [facility] Start: 07-22-2025 Hepatitis B surface antibody level LDL Cholesterol [facility] Start: 07-20-2025 End: 07-20-2025 Patient encounter procedure 07/20/2025 11:00 AM EST Office Visit Internal Medicine [place] [address] [place] [address] Jillian Mojica APRN.HOT DIE PICKER [address] [facility] [place], [place] [id number] medicare wellness and follow up per [facility] [place] Comment on above: medicare wellness and follow up per Opal pal Start: 07-03-2025 End: 10-02-2025 25-hydroxyvitamin D3 [Mass/volume] in Serum or Plasma VITAMIN D 25 HYDROXY Lab Routine Vitamin D deficiency Expected: 07/03/2025 (Approximate), Expires: 10/02/2025 [facility] Comment on above: Expected: 07/03/2025 (Approximate), Expi res: 10/02/2025 Start: 07-03-2025 End: 10-02-2025 CBC panel - Blood by Automated count COMPLETE BLOOD COUNT Lab Routine Controlled type 2 diabetes mellitus with microalbuminuria, with long-term current use of insulin (HCC) Expected: 07/03/2025 (Approximate), Expires: 10/02/2025 [facility] Comment on above: Expected: 07/03/2025 (Approximate), Expi res: 10/02/2025 Start: 07-03-2025 End: 10-02-2025 Comprehensive metabolic 2000 panel - Serum or Plasma COMPREHENSIVE METABOLIC PANEL Lab Routine Controlled type 2 diabetes mellitus with microalbuminuria, with long-term current use of insulin (HCC) Expected: 07/03/2025 (Approximate), Expires: 10/02/2025 [facility] Comment on above: Expected: 07/03/2025 (Approximate), Expi res: 10/02/2025 Start: 07-03-2025 End: 10-02-2025 Hemoglobin A1c in Blood HEMOGLOBIN A1C Lab Routine Controlled type 2 diabetes mellitus with microalbuminuria, with long-term current use of insulin (HCC) Expected: 07/03/2025 (Approximate), Expires: 10/02/2025 [facility] Comment on above: Expected: 07/03/2025 (Approximate), Expi res: 10/02/2025 Start: 07-03-2025 End: 10-02-2025 Lipid 1996 panel - Serum or Plasma LIPID PANEL, FASTING Lab Routine Controlled type 2 diabetes mellitus with microalbuminuria, with long-term current use of insulin (HCC) Pure hypercholesterolemia Expected: 07/03/2025 (Approximate), Expires: 10/02/2025 [facility] Comment on above: Expected: 07/03/2025 (Approximate), Expi res: 10/02/2025 Start: 07-03-2025 End: 10-02-2025 Magnesium [Mass/volume] in Serum or Plasma MAGNESIUM Lab Routine Controlled type 2 diabetes mellitus with microalbuminuria, with long-term current use of insulin (HCC) Hypomagnesemia Expected: 07/03/2025 (Approximate), Expires: 10/02/2025 [facility] Comment on above: Expected: 07/03/2025 (Approximate), Expi res: 10/02/2025 Start: 07-03-2025 End: 10-02-2025 Microalbumin/Creatinin e [Mass Ratio] in Urine ALBUMIN/CREATININE RATIO, URINE Lab Routine Controlled type 2 diabetes mellitus with microalbuminuria, with long-term current use of insulin (HCC) Expected: 07/03/2025 (Approximate), Expires: 10/02/2025 [facility] Comment on above: Expected: 07/03/2025 (Approximate), Expi res: 10/02/2025 Start: 05-05-2025 Hemoglobin A1c measurement HbA1C [facility] Start: 05-03-2025 Influenza vaccination Influenza Vaccine (#1) [facility] Start: 04-19-2025 End: 07-19-2025 Magnesium [Mass/volume] in Serum or Plasma MAGNESIUM Lab Routine Hypomagnesemia Expected: 04/19/2025 (Approximate), Expires: 07/19/2025 [facility] Comment on above: Expected: 04/19/2025 (Approximate), Expi res: 07/19/2025 Start: 03-10-2025 Glaucoma screening Dilated Retinal Exam [facility] Start: 02-17-2025 End: 02-17-2025 Patient encounter procedure [facility] [place] Comment on above: 6 month follow up / Review HM Due - UACR /CMP due to satisfy KED metric for 2024, Mammogram, Colorectal Cancer screen, Diabetic Eye exam and 2024 MWE - please assist in scheduling 6 month follow up Start: 02-09-2025 Shingrix Vaccine (2 of 2) Shingrix Vaccine (2 of 2) [facility] Start: 02-01-2025 End: 02-01-2025 Patient encounter procedure 02/01/2025 1:40 PM EDT Office Visit Internal Medicine [place] [address] [place] [address] Rodrigo Sepulveda MD [address] [place], [place] [address] 6 month follow up [facility] [place] Comment on above: 6 month follow up Start: 01-28-2025 Annual PCP Team Chronic Disease Visit Annual PCP Team Chronic Disease Visit [facility] Start: 01-28-2025 Anxiety Screening Anxiety Screening [facility] Start: 01-28-2025 BP Controlled (<130/80) BP Controlled (<130/80) [facility] Start: 01-28-2025 Depression Screening Depression Screening [facility] Start: 01-23-2025 Hepatitis B screening Urine Albumin:Creatinine Ratio [facility] Start: 01-23-2025 Hepatitis B surface antibody level LDL Cholesterol [facility] Start: 01-15-2025 End: 04-16-2025 25-hydroxyvitamin D3 [Mass/volume] in Serum or Plasma VITAMIN D 25 HYDROXY Lab Routine Vitamin D deficiency Expected: 01/15/2025 (Approximate), Expires: 04/16/2025 [facility] Comment on above: Expected: 01/15/2025 (Approximate), Expi res: 04/16/2025 Start: 01-15-2025 End: 04-16-2025 CBC W Auto Differential panel - Blood COMPLETE BLOOD COUNT AND DIFFERENTIAL Lab Routine Essential hypertension Expected: 01/15/2025 (Approximate), Expires: 04/16/2025 [facility] Comment on above: Expected: 01/15/2025 (Approximate), Expi res: 04/16/2025 Start: 01-15-2025 End: 04-16-2025 Comprehensive metabolic 2000 panel - Serum or Plasma COMPREHENSIVE METABOLIC PANEL Lab Routine Type 2 diabetes mellitus with microalbuminuria, with long-term current use of insulin (HCC) Expected: 01/15/2025 (Approximate), Expires: 04/16/2025 [facility] Comment on above: Expected: 01/15/2025 (Approximate), Expi res: 04/16/2025 Start: 01-15-2025 End: 04-16-2025 Hemoglobin A1c in Blood HEMOGLOBIN A1C Lab Routine Type 2 diabetes mellitus with microalbuminuria, with long-term current use of insulin (HCC) Expected: 01/15/2025 (Approximate), Expires: 04/16/2025 [facility] Comment on above: Expected: 01/15/2025 (Approximate), Expi res: 04/16/2025 Start: 01-15-2025 End: 04-16-2025 Lipid 1996 panel - Serum or Plasma LIPID PANEL, FASTING Lab Routine Pure hypercholesterolemia Expected: 01/15/2025 (Approximate), Expires: 04/16/2025 [facility] Comment on above: Expected: 01/15/2025 (Approximate), Expi res: 04/16/2025 Start: 01-15-2025 End: 04-16-2025 Magnesium [Mass/volume] in Serum or Plasma MAGNESIUM Lab Routine Essential hypertension Encounter for long-term current use of medication Expected: 01/15/2025 (Approximate), Expires: 04/16/2025 [facility] Comment on above: Expected: 01/15/2025 (Approximate), Expi res: 04/16/2025 Start: 01-15-2025 End: 04-16-2025 Microalbumin/Creatinin e [Mass Ratio] in Urine ALBUMIN/CREATININE RATIO, URINE Lab Routine Type 2 diabetes mellitus with microalbuminuria, with long-term current use of insulin (HCC) Expected: 01/15/2025 (Approximate), Expires: 04/16/2025 [facility] Comment on above: Expected: 01/15/2025 (Approximate), Expi res: 04/16/2025 Start: 01-15-2025 End: 04-16-2025 Thyrotropin [Units/volume] in Serum or Plasma THYROID STIMULATING HORMONE Lab Routine Elevated TSH Expected: 01/15/2025 (Approximate), Expires: 04/16/2025 [facility] Work Phone: Comment on above: Expected: 01/15/2025 (Approximate), Expi res: 04/16/2025 Start: 10-22-2024 Hemoglobin A1c measurement HbA1C [facility] Start: 09-03-2024 End: 12-03-2024 Urinalysis complete panel - Urine URINALYSIS WITH MICROSCOPIC, REFLEX CULTURE Lab Routine Acute cystitis with hematuria Expected: 09/03/2024 (Approximate), Expires: 12/03/2024 [facility] Comment on above: Expected: 09/03/2024 (Approximate), Expi res: 12/03/2024 Start: 09-02-2024 Advance Directive Discussion Advance Directive Discussion [facility] Start: 09-02-2024 Diabetic foot examination Diabetic Foot Exam [facility] Comment on above: Postponed from 08/14/2023 (Declined at t his time) Start: 09-02-2024 Medicare Advantage Annual Wellness Visit Medicare Advantage Annual Wellness Visit [facility] Start: 08-03-2024 End: 08-03-2024 Patient encounter procedure [facility] [place] Comment on above: 6 month follow up 6 month follow up Sh ingrix Vaccine Start: 06-18-2024 Glaucoma screening Dilated Retinal Exam [facility] Start: 06-18-2024 Hepatitis C antibody, confirmatory test Dilated Retinal Exam [facility] Start: 05-11-2024 End: 05-11-2024 Patient encounter procedure 05/11/2024 2:15 PM EDT Appointment Radiology [address] [place] [id number] Screening for osteoporosis [Z13.820] Radiology Comment on above: Screening for osteoporosis [Z13.820] Start: 05-03-2024 Influenza vaccination Influenza Vaccine (#1) [facility] Start: 04-25-2024 Hemoglobin A1c measurement HbA1C [facility] Start: 02-16-2024 ANNUAL PCP TEAM CHRONIC DISEASE VISIT ANNUAL PCP TEAM CHRONIC DISEASE VISIT [facility] Start: 02-16-2024 BP CONTROLLED (<130/80) BP CONTROLLED (<130/80) [facility] Start: 02-16-2024 SHINGRIX VACCINE (1 of 2) SHINGRIX VACCINE (1 of 2) [facility] Comment on above: Postponed from 2003 (Declined at t his time) Start: 02-16-2024 Urine microalbumin profile [facility] Comment on above: Postponed from 07/13/2020 (Declined at t his time) Start: 02-12-2024 Hepatitis B surface antibody level LDL CHOLESTEROL [facility] Start: 01-29-2024 End: 01-29-2024 Patient encounter procedure 01/29/2024 2:00 PM EDT Office Visit Internal Medicine [place] [address], [place] [id number] Rodrigo Sepulveda MD [address] [place] [address] Routine visit [facility] [place] Comment on above: Routine visit Start: 09-02-2023 Advance Directive Discussion Advance Directive Discussion [facility] Start: 09-02-2023 Behavioral Health Screening Behavioral Health Screening [facility] Start: 09-02-2023 Depression Assessment Depression Assessment [facility] Start: 08-17-2023 End: 10-17-2023 ALBUMIN/CREAT RATIO RND UR ALBUMIN/CREAT RATIO RND UR Lab Routine Type 2 diabetes mellitus with microalbuminuria, with long-term current use of insulin (HCC) Expected: 08/17/2023 (Approximate), Expires: 10/17/2023 [facility] Work Phone: Comment on above: Expected: 08/17/2023 (Approximate), Expi res: 10/17/2023 Start: 08-17-2023 End: 10-17-2023 CBC panel - Blood by Automated count CBC Lab Routine Essential hypertension Expected: 08/17/2023 (Approximate), Expires: 10/17/2023 [facility] Work Phone: Comment on above: Expected: 08/17/2023 (Approximate), Expi res: 10/17/2023 Start: 08-17-2023 End: 10-17-2023 Comprehensive metabolic 2000 panel - Serum or Plasma COMP METABOLIC PANEL Lab Routine Type 2 diabetes mellitus with microalbuminuria, with long-term current use of insulin (HCC) Type 2 diabetes mellitus with hyperglycemia, with long-term current use of insulin (HCC) Essential hypertension Expected: 08/17/2023 (Approximate), Expires: 10/17/2023 [facility] Work Phone: Comment on above: Expected: 08/17/2023 (Approximate), Expi res: 10/17/2023 Start: 08-17-2023 End: 10-17-2023 Hemoglobin A1c in Blood HGB A1C Lab Routine Type 2 diabetes mellitus with microalbuminuria, with long-term current use of insulin (HCC) Type 2 diabetes mellitus with hyperglycemia, with long-term current use of insulin (HCC) Expected: 08/17/2023 (Approximate), Expires: 10/17/2023 [facility] Work Phone: Comment on above: Expected: 08/17/2023 (Approximate), Expi res: 10/17/2023 Start: 08-17-2023 End: 10-17-2023 Lipid 1996 panel - Serum or Plasma LIPID PANEL BASIC Lab Routine Pure hypercholesterolemia Expected: 08/17/2023 (Approximate), Expires: 10/17/2023 [facility] Work Phone: Comment on above: Expected: 08/17/2023 (Approximate), Expi res: 10/17/2023 Start: 08-14-2023 3 comp foot exam completed DIABETIC FOOT EXAM [facility] Start: 08-14-2023 BONE DENSITY BONE DENSITY [facility] Comment on above: Postponed from 2018 (Declined at t his time) Start: 08-14-2023 Bone Density Screening Bone Density Screening [facility] Comment on above: Postponed from 2018 (Declined at t his time) Start: 08-14-2023 Diabetic foot examination Diabetic Foot Exam [facility] Start: 08-08-2023 Hepatitis B screening URINE ALBUMIN:CREATININE RATIO [facility] Start: 05-14-2023 Hemoglobin A1c measurement HbA1C [facility] Start: 05-14-2023 Hemoglobin A1c/Hemoglobin.total in Blood HBA1C [facility] Start: 05-03-2023 Covid-19 Vaccine () Covid-19 Vaccine () [facility] Start: 05-03-2023 Influenza vaccination [facility] Start: 02-12-2023 Adult depression screening assessment DEPRESSION SCREENING [facility] Start: 02-12-2023 ANNUAL PCP TEAM CHRONIC DISEASE VISIT ANNUAL PCP TEAM CHRONIC DISEASE VISIT [facility] Start: 02-12-2023 BP CONTROLLED (<130/80) BP CONTROLLED (<130/80) [facility] Start: 02-07-2023 Hepatitis B screening URINE ALBUMIN:CREATININE RATIO [facility] Start: 02-07-2023 Hepatitis B surface antibody level LDL CHOLESTEROL [facility] Start: 02-06-2023 Hemoglobin A1c/Hemoglobin.total in Blood HBA1C [facility] Start: 12-13-2022 COVID-19 VACCINE (3 - Mixed Product series) COVID-19 VACCINE (3 - Mixed Product series) [facility] Start: 10-09-2022 COVID-19 VACCINE (3 - Booster) COVID-19 VACCINE (3 - Booster) [facility] Start: 09-02-2022 ADVANCE DIRECTIVE DISCUSSION ADVANCE DIRECTIVE DISCUSSION [facility] Start: 09-02-2022 DEPRESSION ASSESSMENT DEPRESSION ASSESSMENT [facility] Start: 08-14-2022 End: 10-14-2022 ALBUMIN/CREAT RATIO RND UR ALBUMIN/CREAT RATIO RND UR Lab Routine Controlled type 2 diabetes mellitus with microalbuminuria, with long-term current use of insulin (HCC) Expected: 08/14/2022 (Approximate), Expires: 10/14/2022 [facility] Work Phone: Comment on above: Expected: 08/14/2022 (Approximate), Expi res: 10/14/2022 Start: 08-14-2022 End: 10-14-2022 CBC panel - Blood by Automated count CBC Lab Routine Controlled type 2 diabetes mellitus with microalbuminuria, with long-term current use of insulin (HCC) Essential hypertension Expected: 08/14/2022 (Approximate), Expires: 10/14/2022 [facility] Work Phone: Comment on above: Expected: 08/14/2022 (Approximate), Expi res: 10/14/2022 Start: 08-14-2022 End: 10-14-2022 Comprehensive metabolic 2000 panel - Serum or Plasma COMP METABOLIC PANEL Lab Routine Controlled type 2 diabetes mellitus with microalbuminuria, with long-term current use of insulin (HCC) Essential hypertension Expected: 08/14/2022 (Approximate), Expires: 10/14/2022 [facility] Work Phone: Comment on above: Expected: 08/14/2022 (Approximate), Expi res: 10/14/2022 Start: 08-14-2022 End: 10-14-2022 Hemoglobin A1c in Blood HGB A1C Lab Routine Elevated TSH Expected: 08/14/2022 (Approximate), Expires: 10/14/2022 [facility] Work Phone: Comment on above: Expected: 08/14/2022 (Approximate), Expi res: 10/14/2022 Start: 08-14-2022 End: 10-14-2022 Thyrotropin [Units/volume] in Serum or Plasma TSH BLD Lab Routine Elevated TSH Expected: 08/14/2022 (Approximate), Expires: 10/14/2022 [facility] Work Phone: Comment on above: Expected: 08/14/2022 (Approximate), Expi res: 10/14/2022 Start: 08-14-2022 End: 10-14-2022 Thyroxine (T4) free [Mass/volume] in Serum or Plasma T4 FREE/FREE THYROX Lab Routine Elevated TSH Expected: 08/14/2022 (Approximate), Expires: 10/14/2022 [facility] Work Phone: Comment on above: Expected: 08/14/2022 (Approximate), Expi res: 10/14/2022 Start: 07-10-2022 ANNUAL PCP TEAM CHRONIC DISEASE VISIT ANNUAL PCP TEAM CHRONIC DISEASE VISIT [facility] Start: 07-10-2022 BP CONTROLLED (<130/80) BP CONTROLLED (<130/80) [facility] Start: 07-10-2022 SHINGRIX VACCINE (1 of 2) SHINGRIX VACCINE (1 of 2) [facility] Comment on above: Postponed from 2003 (Declined at t his time) Start: 07-10-2022 Urine microalbumin profile DTAP,TDAP,TD (2 - Td or Tdap) [facility] Comment on above: Postponed from 07/13/2020 (Declined at t his time) Start: 06-26-2022 COLORECTAL CANCER SCREENING COLORECTAL CANCER SCREENING [facility] Start: 06-26-2022 FECAL OCCULT BLOOD FECAL OCCULT BLOOD [facility] Start: 06-26-2022 Hepatitis B screening URINE ALBUMIN:CREATININE RATIO [facility] Start: 06-26-2022 Screening for malignant neoplasm of colon [facility] Start: 05-10-2022 Hemoglobin A1c/Hemoglobin.total in Blood HBA1C [facility] Start: 05-03-2022 Influenza vaccination INFLUENZA (#1) [facility] Start: 04-16-2022 Hepatitis C antibody, confirmatory test DILATED RETINAL EXAM [facility] Start: 01-07-2022 3 comp foot exam completed DIABETIC FOOT EXAM [facility] Comment on above: Postponed from 04/27/2020 (Declined at t his time) Start: 12-25-2021 Hemoglobin A1c/Hemoglobin.total in Blood HBA1C [facility] Start: 12-21-2021 Adult depression screening assessment DEPRESSION SCREENING [facility] Start: 12-16-2021 Hepatitis B surface antibody level LDL CHOLESTEROL [facility] Start: 09-02-2021 ADVANCE DIRECTIVE DISCUSSION ADVANCE DIRECTIVE DISCUSSION [facility] Start: 09-02-2021 DEPRESSION ASSESSMENT DEPRESSION ASSESSMENT [facility] Start: 01-05-2021 COVID-19 VACCINE (2 - Moderna 3-dose series) COVID-19 VACCINE (2 - Moderna 3-dose series) [facility] Start: 01-05-2021 COVID-19 VACCINE (2 - Moderna series) COVID-19 VACCINE (2 - Moderna series) [facility] Start: 11-05-2020 BP CONTROLLED (<130/80) BP CONTROLLED (<130/80) [facility] Start: 07-13-2020 Urine microalbumin profile [facility] Start: 04-27-2020 3 comp foot exam completed DIABETIC FOOT EXAM [facility] Start: 2018 BONE DENSITY BONE DENSITY [facility] Start: 2018 Screening for osteoporosis Bone Density Screening [facility] Start: 07-27-2016 Mammography [facility] Start: 07-27-2016 Screening for malignant neoplasm of breast Mammogram Screening [facility] Start: 2013 Hepatitis B Vaccine (1 of 3 - Risk 3-dose series) Hepatitis B Vaccine (1 of 3 - Risk 3-dose series) [facility] Start: 2013 RSV Vaccine (1 - 1-dose 60+ series) RSV Vaccine (1 - 1-dose 60+ series) [facility] Start: 2013 RSV Vaccine (1 - Risk 60-74 years 1-dose series) RSV Vaccine (1 - Risk 60-74 years 1-dose series) [facility] Start: 2003 SHINGRIX VACCINE (1 of 2) SHINGRIX VACCINE (1 of 2) [facility] Start: 1998 COLOGUARD (FIT-DNA) COLOGUARD (FIT-DNA) [facility] Start: 1998 Colonoscopy COLONOSCOPY [facility] Start: [address] COLONOGRAPHY [facility] Start: 1998 Screening for malignant neoplasm of colon [facility] Start: 1998 SIGMOIDOSCOPY SIGMOIDOSCOPY [facility] Start: 1959 PNEUMOCOCCAL: 65+ (1 - PCV) PNEUMOCOCCAL: 65+ (1 - PCV) [facility] End: 12-26-2024 25-hydroxyvitamin D3 [Mass/volume] in Serum or Plasma VITAMIN D 25 HYDROXY Lab Routine Type 2 diabetes mellitus with hyperglycemia, with long-term current use of insulin (HCC) Encounter for long-term current use of medication Vitamin D deficiency Every 6 months for 20 Occurrences starting 12/27/2023 until 12/26/2024 [facility] Comment on above: Every 6 months for 20 Occurrences starti ng 12/27/2023 until 12/26/2024 End: 02-27-2025 BD DXA TRABECULAR BONE SCORE (TBS) BD DXA TRABECULAR BONE SCORE (TBS) Radiology Routine Screening for osteoporosis Asymptomatic menopause 1 Occurrences starting 01/29/2024 until 02/27/2025 [facility] Comment on above: 1 Occurrences starting 01/29/2024 until 02/27/2025 End: 12-26-2024 CBC panel - Blood by Automated count COMPLETE BLOOD COUNT Lab Routine Type 2 diabetes mellitus with hyperglycemia, with long-term current use of insulin (HCC) Essential hypertension Encounter for long-term current use of medication Every 6 months for 20 Occurrences starting 12/27/2023 until 12/26/2024 [facility] Comment on above: Every 6 months for 20 Occurrences starti ng 12/27/2023 until 12/26/2024 End: 12-26-2024 Comprehensive metabolic 2000 panel - Serum or Plasma COMPREHENSIVE METABOLIC PANEL Lab Routine Type 2 diabetes mellitus with hyperglycemia, with long-term current use of insulin (HCC) Essential hypertension Encounter for long-term current use of medication Every 6 months for 20 Occurrences starting 12/27/2023 until 12/26/2024 [facility] Comment on above: Every 6 months for 20 Occurrences starti ng 12/27/2023 until 12/26/2024 End: 01-07-2026 DBT Breast - bilateral screening JEWELL SCREENING W TITI Radiology Routine Encounter for screening mammogram for breast cancer 1 Occurrences starting 12/08/2024 until 01/07/2026 [facility] Work Phone: Comment on above: 1 Occurrences starting 12/08/2024 until 01/07/2026 End: 02-27-2025 DXA Skeletal system.axial Views for bone density DXA-AXIAL SKELETON Radiology Routine Screening for osteoporosis Asymptomatic menopause 1 Occurrences starting 01/29/2024 until 02/27/2025 [facility] Work Phone: Comment on above: 1 Occurrences starting 01/29/2024 until 02/27/2025 End: 12-26-2024 Hemoglobin A1c in Blood HEMOGLOBIN A1C Lab Routine Type 2 diabetes mellitus with hyperglycemia, with long-term current use of insulin (HCC) Encounter for long-term current use of medication Every 6 months for 20 Occurrences starting 12/27/2023 until 12/26/2024 [facility] Work Phone: Comment on above: Every 6 months for 20 Occurrences starti ng 12/27/2023 until 12/26/2024 Hemoglobin.gastroint es tinal.lower [Presence] in Stool by Immunoassay FECAL OCCULT BLOOD TEST Lab Routine Colon cancer screening Ordered: 02/15/2023 [facility] Work Phone: Comment on above: Ordered: 02/15/2023 Hemoglobin.gastroint es tinal.lower [Presence] in Stool by Immunoassay IMMUNOCHEMICAL FECAL OCCULT BLOOD TEST Lab Routine Screening for colon cancer Ordered: 08/03/2024 [facility] Work Phone: Comment on above: Ordered: 08/03/2024 End: 12-26-2024 Lipid 1996 panel - Serum or Plasma LIPID PANEL BASIC Lab Routine Type 2 diabetes mellitus with hyperglycemia, with long-term current use of insulin ([facility]) Pure hypercholesterolemia Essential hypertension Encounter for long-term current use of medication Every 6 months for 20 Occurrences starting 12/27/2023 until 12/26/2024 [facility] Comment on above: Every 6 months for 20 Occurrences starti ng 12/27/2023 until 12/26/2024 End: 12-26-2024 Magnesium [Mass/volume] in Serum or Plasma MAGNESIUM Lab Routine Encounter for long-term current use of medication Every 6 months for 30 Occurrences starting 12/27/2023 until 12/26/2024 [facility] Comment on above: Every 6 months for 30 Occurrences starti ng 12/27/2023 until 12/26/2024 End: 02-29-2024 JEWELL SCREENING JEWELL SCREENING Radiology Routine Encounter for screening mammogram for breast cancer 1 Occurrences starting 01/30/2023 until 02/29/2024 [facility] Work Phone: Comment on above: 1 Occurrences starting 01/30/2023 until 02/29/2024 End: 02-06-2025 MG Breast Screening JEWELL SCREENING Radiology Routine Encounter for screening mammogram for breast cancer 1 Occurrences starting 01/08/2024 until 02/06/2025 [facility] Work Phone: Comment on above: 1 Occurrences starting 01/08/2024 until 02/06/2025 End: 12-26-2024 Microalbumin/Creatinin e [Mass Ratio] in Urine ALBUMIN/CREATININE RATIO, URINE Lab Routine Type 2 diabetes mellitus with hyperglycemia, with long-term current use of insulin (HCC) Encounter for long-term current use of medication Positive for macroalbuminuria Every 6 months for 20 Occurrences starting 12/27/2023 until 12/26/2024 [facility] Comment on above: Every 6 months for 20 Occurrences starti ng 12/27/2023 until 12/26/2024 End: 03-30-2023 Screening mammography bi 2-view breast inc cad JEWELL SCREENING Radiology Routine Encounter for screening mammogram for breast cancer 1 Occurrences starting 02/28/2022 until 03/30/2023 [facility] Work Phone: Comment on above: 1 Occurrences starting 02/28/2022 until 03/30/2023 End: 12-26-2024 Thyrotropin [Units/volume] in Serum or Plasma THYROID STIMULATING HORMONE Lab Routine Pure hypercholesterolemia Essential hypertension Elevated TSH Every 6 months for 30 Occurrences starting 12/27/2023 until 12/26/2024 [facility] Comment on above: Every 6 months for 30 Occurrences starti ng 12/27/2023 until 12/26/2024 End: 02-17-2026 Thyrotropin [Units/volume] in Serum or Plasma THYROID STIMULATING HORMONE Lab Routine Acquired hypothyroidism Every 2 months for 60 Occurrences starting 02/17/2025 until 02/17/2026 [facility] Work Phone: Comment on above: Every 2 months for 60 Occurrences starti ng 02/17/2025 until 02/17/2026 End: 02-17-2026 Thyroxine (T4) free [Mass/volume] in Serum or Plasma T4 FREE/FREE THYROXINE Lab Routine Acquired hypothyroidism Every 2 months for 60 Occurrences starting 02/17/2025 until 02/17/2026 [facility] Comment on above: Every 2 months for 60 Occurrences starti ng 02/17/2025 until 02/17/2026 End: 12-26-2024 Urinalysis complete panel - Urine URINALYSIS, WITH MICROSCOPIC Lab Routine Positive for macroalbuminuria Every 6 months for 20 Occurrences starting 12/27/2023 until 12/26/2024 [facility] Comment on above: Every 6 months for 20 Occurrences starti ng 12/27/2023 until 12/26/2024 [facility] Immunizations Immunization Date Immunization Notes Care Provider Nallely bingham 12-15-2024 zoster vaccine recombinant Rodrigo Sepulveda MD Work Phone: [facility] 08-03-2024 influenza, high dose seasonal, preservative-free Jillian Mojica [employer] PICKER Work Phone: [facility] 08-03-2024 influenza virus vacc ine, unspecified formulation Rodrigo Sepulveda MD Work Phone: [facility] 07-04-2023 influenza (HD-IIV4) vaccine, age 65+ yr, high dose, quadrivalent, PF (FLUZONE HIGH-DOSE) Rodrigo Sepulveda MD Work Phone: [facility] 07-04-2023 influenza virus vacc ine, unspecified formulation Rodrigo Sepulveda MD Work Phone: [facility] 08-14-2022 COVID-19 booster vaccine, age 12+ yr, bivalent (PFIZER-BocadaNTTackle Grab) Jillian Mojica APRN.HOT DIE PICKER Work Phone: [facility] Work Phone: 08-14-2022 influenza, high-dose , quadrivalent vaccine (FLUZONE HIGH DOSE QUADRIVALENT) Jillian Mojica [employer] TE[employer]ER.[facility] Work Phone: [facility] Work Phone: 08-14-2022 influenza virus vacc ine, unspecified formulation Jessica Barajas [facility] 05-19-2021 influenza, high-dose , quadrivalent vaccine (FLUZONE HIGH DOSE QUADRIVALENT) Maggy Fritz [facility] Work Phone: 12-08-2020 Covid (Moderna) Dr. Rodrigo frances Work Phone: [facility] 05-26-2020 pneumococcal polysaccharide vaccine, 23 valent Maggy Fritz [facility] Work Phone: 05-22-2020 influenza, high dose seasonal, preservative-free Maggy Fritz [facility] 05-22-2020 influenza, high-dose , quadrivalent vaccine (FLUZONE HIGH DOSE QUADRIVALENT) Maggy Fritz [facility] Work Phone: 05-03-[address] Rodrigo Sepulveda Work Phone: [facility] 05-03-2020 influenza, seasonal, injectable, preservative free Maggy Fritz [facility] Work Phone: 08-03-2019 influenza, high dose seasonal, preservative-free Maggy Fritz [facility] Work Phone: 04-27-2019 pneumococcal conjuga te vaccine, 13 valent Maggy Fritz [facility] 05-16-2018 influenza, high dose seasonal, preservative-free Maggy Fritz [facility] 06-30-2014 influenza, seasonal, injectable Maggy Fritz [facility] 06-29-2013 influenza virus vacc ine, unspecified formulation Maggy Fritz [facility] 06-21-2012 influenza virus vacc ine, unspecified formulation Maggy Fritz [facility] 05-04-2011 pneumococcal polysaccharide vaccine, 23 valent Maggy Fritz [facility] 07-13-2010 tetanus toxoid, redu martita diphtheria toxoid, and acellular pertussis vaccine, adsorbed Maggy Fritz [facility] Work Phone: Payers Date Payer Category Payer Self-pay [id number] 2021 Medicare HUMANA MEDICARE HUMANA GOLD PLUS [id number] 2021- [phone] [place], [place] [address] [facility] [id number] 2021 Medicare HUMANA MEDICARE HUMANA GOLD PLUS [id number] 2021-Present [phone] [place] [id number] [facility] [id number] 2021 Medicare (Managed Care) HUMANA G OLD PLUS [id number] 2021 Private Health Insurance [id number] Private Health Insurance [id number] Unknown [id number] Unknown [id number] Social History Date Type Detail Facility Start: 03-03-2012 End: 07-09-2023 Tobacco smoking status NHIS Never smoked tobacco [facility] Start: 05-19-2021 End: 02-17-2025 Alcohol intake Current non-drinker of alcohol (finding) [facility] Start: 01-20-2020 End: 08-07-2022 History SDOH Alcohol Frequency 1 [facility] Start: 01-20-2020 History SDOH Alcohol Std Drinks 98 [facility] Start: 01-20-2020 History SDOH Social Connections Phone 5 [facility] Start: 01-20-2020 History SDOH Social Connections Get Together 3 [facility] Start: 01-20-2020 End: 08-07-2022 History SDOH Social Connections Membership 2 [facility] Start: 01-20-2020 End: 02-27-2020 History SDOH Social Connections Living 4 [facility] Start: 01-20-2020 End: 08-07-2022 History SDOH Physical Activity DPW 0 [facility] Start: 01-20-2020 Education 16 [facility] Start: 1955 Sex Assigned At Female [facility] Start: 12-25-2021 Tobacco smoking status NHIS Unknown if ever smoked [facility] Work Phone: Start: 02-02-2022 End: 02-12-2022 Exposure to SARS-CoV-2 (event) Not sure [facility] Start: 03-03-2012 Tobacco use and exposure Smokeless tobacco non-user [facility] Start: 08-07-2022 End: 02-15-2023 History of Social function [facility] Start: 08-07-2022 End: 02-15-2023 Social connection and isolation panel [facility] Do you belong to any clubs or organizations such as sikh groups, unions, fraternal or athletic groups, or school groups? No [facility] Are you now , , , , never or living with a partner? [facility] How often to you hav e a drink containing alcohol? Never [facility] How many standard dr inks containing alcohol do you have on a typical day? Patient does not drink [facility] Do you feel stress - tense, restless, nervous, or anxious, or unable to sleep at night because your mind is troubled all the time - these days [OSQ] Not at all [facility] (I/We) worried wheth er (my/our) food would run out before (I/we) got money to buy more. Never true [facility] Start: 04-26-2019 Gender identity Identifies as female gender (finding) [facility] Start: 04-26-2019 Sexual orientation Heterosexual (finding) [facility] How hard is it for y ou to pay for the very basics like food, housing, medical care, and heating Not very hard [facility] Work Phone: Do you feel stress - tense, restless, nervous, or anxious, or unable to sleep at night because your mind is troubled all the time - these days [OSQ] Only a little [facility] How hard is it for y ou to pay for the very basics like food, housing, medical care, and heating Somewhat hard [facility] (I/We) worried wheth er (my/our) food would run out before (I/we) got money to buy more. Sometimes true [facility] Medical Equipment Procedure Code Equipment Code Equipment Original Text Equipment Identifier Dates [id number], [id number], [id number] Start: 01-28-2020 End: 05-25-2024 Comment on above: [...] 12/22/2014 5:18 PM EDT Betty AlbertoBrenda No [facility] 12-22-2014 Are you blind, or do you have serious difficulty seeing, even when wearing glasses No 12/22/2014 5:18 PM EDT Betty AlbertoBrenda Violet No [facility] 12-22-2014 Do you have serious difficulty walking or climbing stairs No 12/22/2014 5:18 PM EDT Betty AlbertoJanaBrenda Violet No [facility] 12-22-2014 Do you have difficul ty dressing or bathing No 12/22/2014 5:18 PM EDT Betty AlbertoBrenda No [facility] 12-22-2014 Because of a physica l, mental, or emotional condition, do you have difficulty doing errands alone such as visiting a physician's office or shopping No 12/22/2014 5:18 PM EDT Betty AlbertoBrenda No [facility] Mental Status Date Assessment Result Facility 12-22-2014 Because of a physica l, mental, or emotional condition, do you have serious difficulty concentrating, remembering, or making decisions No 12/22/2014 5:18 PM EDT Betty AlbertoBrenda No [facility] Clinical Notes 01-28-2020 to 02-17-2025 Patient InstructionsRodrigo Sepulveda MD - 02/17/2025 10:11 AM Danny Tovar LPN - 02/17/2025 10:00 AM Josette Arreguin RN - 02/02/2025 10:35 AM EDTPatient Instructions Note Date & Type Note Facility 02-17-2025 Instructions Rodrigo Sepulveda MD - 02/17/2025 10:36 AM EDT - Start levothyroxine 25 mcg once daily; prescription sent to [facility] for a 90-day supply - Start empagliflozin (Jardiance) 10 mg once daily; 30-day supply with 5 refills at [facility]--drink plenty of fluids and report any yeast [...] check in December documented in this encounter [facility] 02-17-2025 Note HNO ID: [id number] Author: RODRIGO SEPULVEDA MD Service: ? Author Type: Physician Type: Progress Notes Filed: 03/12/2025 01:30 Note Text: This note was created using [employer]. Subjective Barbara Allen is a 69 year [...] with these medications and confirms that her orthopedic technician manages most of them. She reports that [...] taking: Reported on 02/17/2025) blood sugar diagnostic (Vita Sound ULTRA TEST) test strip Use as instructed [...] Abs Lymph 1.00 - 4.00 k/uL 1.13 [place]% % 7.2 Abs [place] <0.87 k/uL 0.5 (more content not included)... [facility] 02-17-2025 History of Present illness Narrative This note was created using [employer] The[employer]. Subjective Barbara Allen is a 69 year [...] with these medications and confirms that her orthopedic technician manages most of them. She reports that [...] taking: Reported on 02/17/2025) blood sugar diagnostic (MediaQ,IncUCH ULTRA TEST) test strip Use as instructed [...] Abs Lymph 1.00 - 4.00 k/uL 1.13 [place]% % 7.2 Abs [place] <0.87 k/uL 0.55 [place]% % 2.2 Abs [...] Negative Ketones, Urine Negative Negative Negative Specific [place], Ur 1.005 - 1.030 1.017 1.013 Hemoglobin/Blood,Ur [...] levels are within normal range. - Continue [id number]-[id number] vitamin D supplementation. - Recheck vitamin D levels in July. # Essential hypertension (I10) - Blood pressure well-controlled on current regimen including Plendil. - Refill for Plendil sent to [facility]. - Monitor blood pressure regularly. [...] omeprazole. - Refill for omeprazole sent to [facility]. # Hypomagnesemia (E83.42) - Magnesium [...] balanced diet. Rodrigo Sepulveda MD Recording using [employer] software for draft documentation of the visit was discussed with the patient/authorized new accounts banking representative; all questions welcomed and answered. Patient/authorized new accounts banking representative agreed to proceed Last seen eye doctor x 1 year ago at [facility]- Last seen [facility] on 02/04/25 documented in this encounter [facility] 02-17-2025 Note HNO ID: [id number] Author: DANNY TREJO LPN Service: ? Author Type: LICENSED NURSE Type: Progress Notes Filed: 03/12/2025 01:30 Note Text: Last seen eye doctor x 1 year ago at [facility]- Last seen [facility] on 02/04/25 [facility] 02-02-2025 Note HNO ID: [id number] Author: JOSETTE SALCEDO RN Service: ? Author [...] Salcedo RN February 02, 2025 10:35 AM [facility] 02-02-2025 History of Present illness Narrative Value [...] 2025 10:35 AM documented in this encounter [facility] 02-02-2025 Note Patient Outreach (AM [facility]) BARBARA ALLEN ([id number]) 1955 F Date Time Provider Department 02/02/25 [...] Date Reviewed: 08/03/2024 Reviewed by: Jillian Mojica APRN.HOT DIE PICKER - Fully Assessed Reason for Visit: Care [...] every other day. - blood sugar diagnostic (MediaQ,IncUCH ULTRA TEST) test strip Use as instructed [...] Encounter Status:Closed by JOSETTE SALCEDO on 02/02/25 [facility] 02-01-2025 Telephone encounter Note rx sent. [facility] 02-01-2025 Miscellaneous Notes rx sent. Prescription Refill [...] 2025 3:16 PM documented in this encounter [facility] 02-01-2025 Telephone encounter Note Prescription Refill Information [...] Sharma LPN February 01, 2025 3:16 PM [facility] 01-29-2025 Telephone encounter Note Prescription Refill [...] Sharma LPN January 29, 2025 4:00 PM [facility] 01-29-2025 Miscellaneous Notes Prescription Refill Information [...] 2025 4:00 PM documented in this encounter [facility] 01-29-2025 Telephone encounter Note Prescription Refill [...] Sharma LPN January 29, 2025 3:59 PM [facility] 01-29-2025 Miscellaneous Notes Prescription Refill Information [...] 2025 3:59 PM documented in this encounter [facility] 01-15-2025 Telephone encounter Note Filed [facility] 01-15-2025 Miscellaneous Notes Filed documented in this encounter [facility] 12-18-2024 Telephone encounter Note Prescription Refill Information [...] Garcia LPN December 18, 2024 2:00 PM [facility] 12-18-2024 Miscellaneous Notes Prescription Refill Information The [...] 2024 2:00 PM documented in this encounter [facility] 12-16-2024 History of Present illness Narrative Primary [...] Corey PharmD, BCACP documented in this encounter [facility] 12-16-2024 Note HNO ID: [id number] Author: VIK COREY RPh Service: ? Author [...] services. Thank you, Vik Corey PharmD, FLORESITACP [facility] 12-16-2024 Note HNO ID: [id number] Author: VIK COREY RPh Service: ? Author [...] thereafter. Thank you, Vik Corey PharmD, BCACP [facility] 12-16-2024 Note Patient Outreach (PM [facility]) BARBARA ALLEN ([id number]) 1955 F Date Time Provider Department 12/16/24 [...] Thank you, Vik Corey PharmD, BCACP Vik Corey RPh 12/18/2024 12:23 PM Signed Re-contacted patient [...] Date Reviewed: 08/03/2024 Reviewed by: Jillian Mojica APRN.HOT DIE PICKER - Fully Assessed Reason for Visit: Care Coordination [[id number]] Cmt: Panel Management Review for Pharmacist Referral [...] every other day. - blood sugar diagnostic (Vita Sound ULTRA TEST) test strip Use as instructed [...] Encounter Status:Closed by VIK COREY on 12/16/24 [facility] 12-08-2024 Note Patient Outreach (IN [facility]) BARBARA ALLEN ([id number]) 1955 F Date Time Provider Department 12/08/24 RODRIGO SEPULVEDA INTMWS During your visit today, we recorded the following information about you: Allergies As of Date: 12/08/2024 Noted Allergy Reaction LISINOPRIL 03/10/2014 3 - Cough Date Reviewed: 08/03/2024 Reviewed by: Jillian Mojica APRN.HOT DIE PICKER - Fully Assessed Visit Diagnosis:Encounter for screening mammogram for breast cancer [Z12.31] Order(s):[facility] SCREENING W TITI [[id number]] Order #: [id number] FUTURE Prescriptions as of 01/08/2025 - potassium [...] every other day. - blood sugar diagnostic (Highlight TEST) test strip Use as instructed FOR [...] Encounter Status:Closed by KIERA WILHELM on 01/08/25 [facility] 11-18-2024 Note HNO ID: [id number] Author: VANESSA DE LA ROSA MA Service: ? Author Type: Customer Solutions Supervisor Type: Progress Notes Filed: 11/18/2024 17:06 Note Text: POPULATION HEALTH NAVIGATION OUTREACH Action/FYI Patient replies via [address] declines scheduling [employer] message sent to patient Reason for Outreach Returned Call/MyChart Patient Contacted: Spoke to patient/parent/or legal guardian Patient identified by name and date of : Yes Returned call/[employer] actions taken: [employer] message sent Patient declined: Patient will contact office directly to schedule Navigation Signature: Vanessa Navarro MA November 18, 2024 5:03 PM [facility] 11-18-2024 Note HNO ID: [id number] Author: VANESSA DE LA ROSA MA Service: ? Author Type: Customer Solutions Supervisor Type: Progress Notes Filed: 11/18/2024 10:49 Note Text: POPULATION HEALTH NAVIGATION OUTREACH Action/FYI Last Wellness exam: 01.29.2024 Last OV: 12..2023 Upcoming follow up noted 6..2024 Mammo: due since 2015 CRCS: due since 2021 - FOBT last completed A1c: due since 10/2024 KED: UACR and CMP due Diabetic Eye exam: Due 7. - last completed at [facility] Reason for Outreach Care Gap/HCC or Scheduling Wellness Visits Care Gaps due: Medicare Annual Wellness Visit Breast Cancer Screening Colorectal Cancer Screening Diabetic Eye Exam HBA1C KED Patient Contacted: Unable or unnecessary to reach patient: Left message [email or web address] message sent Updated appointment notes Navigation Signature: Vanessa Navarro MA November 18, 2024 9:30 AM [facility] 11-18-2024 History of Present illness Narrative POPULATION HEALTH NAVIGATION OUTREACH Action/I Last Wellness exam: 01.29.2024 Last OV: 12..2023 Upcoming follow up noted 6..2024 Mammo: due since 2015 CRCS: due since 2021 - FOBT last completed A1c: due since 10/2024 KED: UACR and CMP due Diabetic Eye exam: Due 7. - last completed at [facility] Reason for Outreach Care Gap/HCC or Scheduling Wellness Visits Care Gaps due: Medicare Annual Wellness Visit Breast Cancer Screening Colorectal Cancer Screening Diabetic Eye Exam HBA1C KED Patient Contacted: Unable or unnecessary to reach patient: Left message [email or web address] message sent Updated appointment notes Navigation Signature: Vanessa Navarro MA November 18, 2024 9:30 AM documented in this encounter [facility] 11-18-2024 Note Patient Outreach (DONNY PAEZ) ALEJANDROBARBARA ([id number]) 1955 F Date Time Provider Department 11/18/24 [...] exam: Due 7. - last completed at [facility] Reason for Outreach Care Gap/HCC or Scheduling [...] Date Reviewed: 08/03/2024 Reviewed by: Jillian Mojica APRN.HOT DIE PICKER - Fully Assessed Reason for Visit: Population [...] every other day. - blood sugar diagnostic (MediaQ,IncUCH ULTRA TEST) test strip Use as instructed [...] by VANESSA DE LA ROSA on 11/18/24 [facility] 08-03-2024 Note HNO ID: [id number] Author: JILLIAN MOJICA APRN.HOT DIE PICKER Service: ? Author Type: Nurse Specialist Type: [...] her feet. States [facility] in [facility]. Defers [...] diagnostic (ONETOUCH U (more content not included)... [facility] 08-03-2024 History of Present illness Narrative SUBJECTIVE: [...] Presents for routine follow-up visit. Followed by [facility] cardiology. Continues on Eliquis for [...] her feet. States she goes to [facility], to have cataracts removed in 2024. Defers [...] mouth every other day. blood sugar diagnostic (Vita Sound ULTRA TEST) test strip Use as instructed [...] Abs Lymph 1.00 - 4.00 k/uL 1.36 [place]% % 7.8 Abs [place] <0.87 k/uL 0.54 Eosin% % 3.9 Abs [...] Negative Ketones, Urine Negative Negative Negative Specific [place], Ur 1.005 - 1.030 1.017 1.013 Hemoglobin/Blood,Ur [...] Rodrigo Sepulveda MD with labs Jillian Mojica APRN.HOT DIE PICKER Medical Decision Making: Problems: Moderate: 2+ stable chronic illnesses Data: Unique test(s) ordered: 3+ Risk: Moderate: Drug management Medical Decision Making Level: 4 - Moderate documented in this encounter [facility] 06-04-2024 Telephone encounter Note Pt returns call, gave information provided, pt voices understanding. [facility] 06-04-2024 Miscellaneous Notes Pt returns call, gave [...] a day. Authorizing Provider: RODRIGO SEPULVEDA MD [facility] pharmacy calling asking to have directions on Furosemide 40 mg rx clarified. Rx say one tablet twice daily, in morning. Last rx that they processed was from [facility] and it was once daily. Can send new rx with new directions or can call. Please advise documented in this encounter [facility] 06-04-2024 Telephone encounter Note Phoned patient left message to return call and ask to speak to a nurse. [facility] 06-03-2024 Telephone encounter Note There was a [...] a day. Authorizing Provider: RODRIGO SEPULVEDA MD [facility] 06-03-2024 Telephone encounter Note [facility] pharmacy calling asking to have directions on Furosemide 40 mg rx clarified. Rx say one tablet twice daily, in morning. Last rx that they processed was from [facility] and it was once daily. Can send new rx with new directions or can call. Please advise [facility] 05-25-2024 Telephone encounter Note The following approved [...] daily. Diagnosis: (E11.65, Z79.4) Rodrigo Sepulveda MD [facility] 05-25-2024 Miscellaneous Notes The following approved medication [...] Alis Baird LPN. documented in this encounter [facility] 05-25-2024 Telephone encounter Note Patient has been [...] Please advise. Thank you. Alis Baird LPN. [facility] 01-29-2024 Instructions Rodrigo Sepulveda MD - 01/29/2024 [...] review all the medicines you take, even kira-tds-ddaulbz medicines. As you get older, the way [...] usual activities immediately. documented in this encounter [facility] 01-29-2024 History of Present illness Narrative Images from the original note were not included. This note was created using [employer] The[employer]riter. Subjective Barbara Allen is a 68 year [...] low. Noted issues with insulin refill at [facility]--won't break up boxes. Stable on current meds [...] mouth every other day. blood sugar diagnostic (Vita Sound ULTRA TEST) test strip Use as instructed [...] Abs Lymph 1.00 - 4.00 k/uL 1.36 [place]% % 7.8 Abs [place] <0.87 k/uL 0.54 Eosin% % 3.9 Abs [...] Negative Negative Ketones, Urine Negative Negative Specific [place], Ur 1.005 - 1.030 1.017 Hemoglobin/Blood,Ur Negative [...] in the medical record. Outside specialists seen: [facility] (AN[facility]/Family history review [...] microalbuminuria, with long-term current use of insulin ([facility]) E11.29 insulin glargine (LANTUS SOLOSTAR U-100 INSULIN) [...] Rodrigo Sepulveda MD documented in this encounter [facility] 01-23-2024 Telephone encounter Note The following approved medication requests have been transmitted electronically. Requested Prescriptions Signed Prescriptions Disp Refills potassium chloride ER (KLOR-CON) 20 mEq tablet 180 tablet 2 Sig: Take 1 tablet by mouth two times a day. Authorizing Provider: RODRIGO SEPULVEDA MD [facility] 01-23-2024 Miscellaneous Notes The following approved medication [...] Pepper Sharma LPN. documented in this encounter [facility] 01-23-2024 Telephone encounter Note Patient has been [...] Please advise. Thank you. Pepper Sharma LPN. [facility] 01-01-2024 Telephone encounter Note Talked to Patient, Simvastatin Rx was sent to [facility] 12/06/2023 for 90 tablets, 3 refills, Patient will call mail order pharmacy. Alis Baird LPN [facility] 01-01-2024 Miscellaneous Notes Talked to Patient, Simvastatin Rx was sent to [facility] 12/06/2023 for 90 tablets, 3 refills, Patient will call mail order pharmacy. Alis Baird LPN documented in this encounter [facility] 12-30-2023 Telephone encounter Note TC to patient who verbalized understanding of below. No further questions at this time. NAHOMY Lugo [facility] 12-30-2023 Miscellaneous Notes TC to patient who [...] you, Magali Reyes documented in this encounter [facility] 12-27-2023 Telephone encounter Note Noted. Not sure why no labs on file. Labs ordered now. I filed standing orders so available every 6 months. Included urine for follow up on albuminuria (leaking protein through the kidneys) to see whether worsening or improving. Also TSH since was elevated in the past [facility] 12-26-2023 History of Present illness Narrative Primary Care Pharmacy Panel Management This patient has been identified through panel management efforts by the primary care pharmacy team. Patient appears to be good candidate for PharmD referral. She has upcoming appt with PCP on 01/28 --> will reach out to PCP to suggest discussing PharmD referral at visit. Cristal Pratt RPh documented in this encounter [facility] 12-24-2023 Telephone encounter Note Pt came in this morning to get labs but there are no labs in her chart. Pt says Derick usually has her get labs before her appts and her next appt is next 01/28. I told pt we could contact her if labs are needed before her appt. Please review and advise. Thank you, Magali Reyes [facility] 12-12-2023 Miscellaneous Notes Patient calling asking for a 30 day supply Lantus to [facility] please. Pending rx Please advise Patient has [...] care: 01/29/2024 Please advise. Thank you. Yasmeen Whatley LPN. documented in this encounter [facility] 12-06-2023 Miscellaneous Notes Patient has been identified [...] Bailey Thornton LPN. documented in this encounter [facility] 10-09-2023 Miscellaneous Notes Patient calls to request a new prescription be sent to [facility] for Lantus insulin. Patient requests prescription be sent for 30 days. Current prescription is a supply of 68 days and costs almost the same as the 90 day supply. Pended for review. Alexandra Mondragon, RN documented in this encounter [facility] 10-02-2023 Miscellaneous Notes Patient has been identified [...] Alis Baird LPN. documented in this encounter [facility] 06-18-2023 Miscellaneous Notes Faxed OV note from 08/14/22 along with the forms. Minnie Beckford LPN Form was signed and faxed on 06/03/2023 but office notes were not included. Last office visit 02/15/2023 did not mention usage of O2. I think this was taken care of--I signed to form O2 order received from [facility]. D/t patient's insurance change, patient needs new order and CALLIE note faxed to [phone] Sepulveda. Form taken to Dr. Sepulveda nurse station. Candace Turcios MA documented in this encounter [facility] 06-02-2023 History of Present illness Narrative POPULATION [...] Dept Phone 08/20/2023 1:40 PM Jillian Mojica [facility] [phone] Mammogram Screening due on 07/27/2016 - declined, [...] Care Gap or Scheduling/Wellness visits Payer: Payor: [employer] MEDICARE / Plan: ZEALER PLUS / Product Type: HMO / Care [...] 2023 1:33 PM documented in this encounter [facility] 03-08-2023 Miscellaneous Notes Patient has been identified [...] Indira Mejia LPN documented in this encounter [facility] 02-15-2023 History of Present illness Narrative This note was created using [employer]. Subjective Barbara Allen is a 67 year [...] Outpatient Medications Medication Sig blood sugar diagnostic (Vita Sound ULTRA TEST) test strip Use as instructed [...] Rodrigo Sepulveda MD documented in this encounter [facility] 01-08-2023 Miscellaneous Notes TC Barbara, Ferrous, Glimepiride & Omeprazole all were written 06/04/2022 for 90 days with 3 refills, sent to [facility] pharmacy. Patient will check with pharmacy. Advised if she has any problems call back and speak to a nurse. Alis Baird LPN documented in this encounter [facility] 11-27-2022 Miscellaneous Notes Patient has been identified [...] Alis Baird LPN documented in this encounter [facility] 11-27-2022 Miscellaneous Notes Patient has been identified [...] Alis Baird LPN documented in this encounter [facility] 11-27-2022 Miscellaneous Notes Patient has been identified [...] Alis Baird LPN documented in this encounter [facility] 10-03-2022 History of Present illness Narrative POPULATION HEALTH NAVIGATION OUTREACH Action/FYI LM for pt to call to schedule mammogram, colonoscopy, diabetic retinal eye exam. Notes added to upcoming ov to review hcc gaps Patient Identified by Name and : NO Outreach Outcome/Action Unable to reach patient: Left message [employer] message sent Did you use a PCP flex slot to schedule this appointment? N/A Reason for Outreach Care Gap or Scheduling/Wellness visits Payer: Payor: [employer] MEDICARE / Plan: ZEALER PLUS / Product Type: HMO / Care [...] 2022 2:06 PM documented in this encounter [facility] 09-04-2022 Miscellaneous Notes Okayed CALLIE: 08/14/2022 Last refill: 03/07/2022 QTY: 5 Refills: 2 Patient phones requesting refills as follows: Requested Prescriptions Pending Prescriptions Disp Refills insulin glargine (LANTUS SOLOSTAR U-100 INSULIN) 100 unit/mL (3 mL) 5 Each 2 Sig: Inject 22 Units subcutaneously daily at bedtime. Please review and advise. Kevin Ignacio Ma documented in this encounter [facility] 06-19-2022 History of Present illness Narrative POPULATION HEALTH NAVIGATION OUTREACH Action/FYI left message on machine to return call [email or web address] message sent to patient Pt identified by name and : NO Outreach Outcome/Action Unable to reach patient: Left message [employer] message sent Did you use a PCP flex slot to schedule this appointment? N/A Reason for Outreach Care Gap or Scheduling/Wellness visits Payer: Payor: [employer] MEDICARE / Plan: ZEALER PLUS / Product Type: HMO / Care [...] 2022 3:35 PM documented in this encounter [facility] 03-06-2022 Miscellaneous Notes Patient has been identified [...] Alis Baird LPN documented in this encounter [facility] 02-12-2022 History of Present illness Narrative This note was created using [employer]. Subjective Barbara Allen is a 66 year [...] daily. Diagnosis: (E11.65, Z79.4) blood sugar diagnostic (MediaQ,IncUCH ULTRA TEST) test strip Use as instructed [...] Lymph 1.00 - 4.00 k/uL 0.93 (L) [place]% % 6.0 Abs [place] <0.87 k/uL 0.39 Eosin% % 1.5 Abs [...] noted in HPI Continue follow up with orthopedic technician 6. Elevated TSH - ICD9: 794.5, ICD10: R79.89 Suspect amiodarone caused elevated TSH Update labs as discussed. Further evaluation and treatment as indicated. - TSH BLD - T4 FREE/FREE THYROX - HGB A1C Rodrigo Sepulveda MD documented in this encounter [facility] 01-25-2022 Miscellaneous Notes Duplication request. Bailey Thornton LPN documented in this encounter [facility] 01-25-2022 Miscellaneous Notes Patient has been identified [...] Pepper Durbin LPN documented in this encounter [facility] 11-23-2021 History of Present illness Narrative POPULATION HEALTH NAVIGATION OUTREACH Action/I [employer] outreach Mammogram AD LVM Mychart message sent Pt identified by name and : NO Outreach Outcome/Action Unable to reach patient: Left message MyChart message sent Reason for Outreach Care Gap or Scheduling/Wellness visits Payer: Payor: [employer] MEDICARE / Plan: [employer] GOLD PLUS / Product Type: HMO / [...] 2021 2:32 PM documented in this encounter [facility] 01-28-2020 History of Past i llness Narrative Problem Noted Date Resolved Date Uncontrolled type 2 diabetes mellitus with insul in therapy 01/28/2020 09/03/2021 documented as of this encounter (statuses as of 11/23/2021) [facility] History of Past illness Narrative* Problem Noted Date Resolved Date Uncontrolled type 2 diabetes mellitus with insul in therapy 01/28/2020 09/03/2021 documented as of this encounter (statuses as of 01/25/2022) [facility] History of Past illness Narrative* Problem Noted Date Resolved Date Uncontrolled type 2 diabetes mellitus with insul in therapy 01/28/2020 09/03/2021 documented as of this encounter (statuses as of 01/25/2022) [facility] History of Past illness Narrative* Problem Noted Date Resolved Date Uncontrolled type 2 diabetes mellitus with insul in therapy 01/28/2020 09/03/2021 documented as of this encounter (statuses as of 02/20/2022) [address] History of Past illness Narrative* Problem Noted Date Resolved Date Uncontrolled type 2 diabetes mellitus with insul in therapy 01/28/2020 09/03/2021 documented as of this encounter (statuses as of 03/05/2022) [address] History of Past illness Narrative* Problem Noted Date Resolved Date Uncontrolled type 2 diabetes mellitus with insul in therapy 01/28/2020 09/03/2021 documented as of this encounter (statuses as of 03/07/2022) [address] History of Past illness Narrative* Problem Noted Date Resolved Date Uncontrolled type 2 diabetes mellitus with insul in therapy 01/28/2020 09/03/2021 documented as of this encounter (statuses as of 06/04/2022) [address] History of Past illness Narrative* Problem Noted Date Resolved Date Uncontrolled type 2 diabetes mellitus with insul in therapy 01/28/2020 09/03/2021 documented as of this encounter (statuses as of 06/19/2022) [address] History of Past illness Narrative* Problem Noted Date Resolved Date Uncontrolled type 2 diabetes mellitus with insul in therapy 01/28/2020 09/03/2021 documented as of this encounter (statuses as of 08/06/2022) [address] History of Past illness Narrative* Problem Noted Date Resolved Date Uncontrolled type 2 diabetes mellitus with insul in therapy 01/28/2020 09/03/2021 documented as of this encounter (statuses as of 09/06/2022) [address] History of Past illness Narrative* Problem Noted Date Resolved Date Uncontrolled type 2 diabetes mellitus with insul in therapy 01/28/2020 09/03/2021 documented as of this encounter (statuses as of 10/03/2022) [address] History of Past illness Narrative* Problem Noted Date Resolved Date Uncontrolled type 2 diabetes mellitus with insul in therapy 01/28/2020 09/03/2021 documented as of this encounter (statuses as of 11/27/2022) [address] History of Past illness Narrative* Problem Noted Date Resolved Date Uncontrolled type 2 diabetes mellitus with insul in therapy 01/28/2020 09/03/2021 documented as of this encounter (statuses as of 11/27/2022) [place] [id number] History of Past illness Narrative* Problem Noted Date Resolved Date Uncontrolled type 2 diabetes mellitus with insul in therapy 01/28/2020 09/03/2021 documented as of this encounter (statuses as of 01/09/2023) [address] History of Past illness Narrative* Problem Noted Date Resolved Date Uncontrolled type 2 diabetes mellitus with insul in therapy 01/28/2020 09/03/2021 documented as of this encounter (statuses as of 02/04/2023) [address] History of Past illness Narrative* Problem Noted Date Resolved Date Uncontrolled type 2 diabetes mellitus with insul in therapy 01/28/2020 09/03/2021 documented as of this encounter (statuses as of 03/08/2023) [address] History of Past illness Narrative* Problem Noted Date Resolved Date Uncontrolled type 2 diabetes mellitus with insul in therapy 01/28/2020 09/03/2021 documented as of this encounter (statuses as of 03/08/2023) [address] History of Past illness Narrative* Problem Noted Date Diagnosed Date Resolved Date Uncontrolled type 2 diabetes mellitus with insulin therapy 01/28/2020 09/03/2021 Class 3 severe obesity with body mass index (BMI) of 40.0 to 44.9 in adult 05/08/2006 3 documented as of this encounter (statuses as of 03/19/2023) [address] History of Past illness Narrative* Problem Noted Date Diagnosed Date Resolved Date Uncontrolled type 2 diabetes mellitus with insulin therapy 01/28/2020 09/03/2021 Class 3 severe obesity with body mass index (BMI) of 40.0 to 44.9 in adult 05/08/2006 3 documented as of this encounter (statuses as of 06/02/2023) [address] History of Past illness Narrative* Problem Noted Date Diagnosed Date Resolved Date Uncontrolled type 2 diabetes mellitus with insulin therapy 01/28/2020 09/03/2021 Class 3 severe obesity with body mass index (BMI) of 40.0 to 44.9 in adult 05/08/2006 3 documented as of this encounter (statuses as of 06/18/2023) [place] [id number] History of Past illness Narrative* Problem Noted Date Diagnosed Date Resolved Date Uncontrolled type 2 diabetes mellitus with insulin therapy 01/28/2020 09/03/2021 Class 3 severe obesity with body mass index (BMI) of 40.0 to 44.9 in adult 05/08/2006 3 documented as of this encounter (statuses as of 07/11/2023) [place] [id number] History of Past illness Narrative* Problem Noted Date Diagnosed Date Resolved Date Uncontrolled type 2 diabetes mellitus with insulin therapy 01/28/2020 09/03/2021 Class 3 severe obesity with body mass index (BMI) of 40.0 to 44.9 in adult 05/08/2006 3 documented as of this encounter (statuses as of 10/03/2023) [address] History of Past illness Narrative* Problem Noted Date Diagnosed Date Resolved Date Uncontrolled type 2 diabetes mellitus with insulin therapy 01/28/2020 09/03/2021 Class 3 severe obesity with body mass index (BMI) of 40.0 to 44.9 in adult 05/08/2006 3 documented as of this encounter (statuses as of 10/09/2023) [address] History of Past illness Narrative* Problem Noted Date Diagnosed Date Resolved Date Uncontrolled type 2 diabetes mellitus with insulin therapy 01/28/2020 09/03/2021 Class 3 severe obesity with body mass index (BMI) of 40.0 to 44.9 in adult 05/08/2006 3 documented as of this encounter (statuses as of 12/13/2023) [address] History of Past illness Narrative* Problem Noted Date Diagnosed Date Resolved Date Uncontrolled type 2 diabetes mellitus with insulin therapy 01/28/2020 09/03/2021 Class 3 severe obesity with body mass index (BMI) of 40.0 to 44.9 in adult 05/08/2006 3 documented as of this encounter (statuses as of 12/06/2023) [facility] Diagnosis Uncontrolled type 2 diabetes mellitus with insulin therapy Type II or unspecified type diabetes mellitus without mention of complication, uncontrolled [facility] Controlled type 2 diabetes mellitus without complication, with long-term current use of insulin (HCC)- Primary Type II or unspecified type diabetes mellitus without mention of complication, uncontrolled [facility] Diagnosis Onset Date Resolution Status Atherosclerotic heart diseas e of [place] coronary artery without angina pectoris acute Atrial fibrillation acute Essential hypertension acute Mixed hyperlipidemia acute Cardiomyopathy chronic [facility] Work Phone: Evaluation note* Diagnosis Controlled type 2 diabetes mellitus with microalbuminuria, with long-term current use of insulin (HCC)- Primary Essential hypertension Unspecified essential hypertension Pure hypercholesterolemia Stasis edema of both lower extremities Acute on chronic diastolic congestive heart failure (HCC) Acute on chronic diastolic heart failure Elevated TSH Nonspecific abnormal results of thyroid function study [facility] Diagnosis Encounter for screening mammogram for breast cancer [facility] Diagnosis Controlled type 2 diabetes mellitus with microalbuminuria, with long-term current use of insulin (HCC) [facility] Diagnosis Essential hypertension Unspecified essential hypertension Controlled type 2 diabetes mellitus with microalbuminuria, with long-term current use of insulin (HCC) Gastroesophageal reflux disease without esophagitis Esophageal reflux [facility] Diagnosis Controlled type 2 diabetes mellitus with microalbuminuria, with long-term current use of insulin (HCC) [facility] Diagnosis Controlled type 2 diabetes mellitus without complication, with long-term current use of insulin (HCC) [facility] Diagnosis Essential hypertension Unspecified essential hypertension Controlled type 2 diabetes mellitus with microalbuminuria, with long-term current use of insulin (HCC) Gastroesophageal reflux disease without esophagitis Esophageal reflux [facility] Diagnosis Encounter for screening [facility] for [facility] Diagnosis Controlled type 2 diabetes mellitus with microalbuminuria, with long-term current use of insulin (HCC) [facility] Diagnosis Type 2 diabetes mellitus with hyperglycemia, with long-term current use of insulin (HCC)- Primary Essential hypertension Unspecified essential hypertension Type 2 diabetes mellitus with microalbuminuria, with long-term current use of insulin (HCC) Pure hypercholesterolemia Longstanding persistent atrial fibrillation (HCC) Colon cancer screening Special screening for malignant neoplasms, colon [facility] Diagnosis Controlled type 2 diabetes mellitus with microalbuminuria, with long-term current use of insulin (HCC) [facility] Diagnosis Type 2 diabetes mellitus [...] thyroid function study [facility] Diagnosis Controlled type 2 diabetes mellitus with microalbuminuria, with long-term current use of insulin (HCC) [facility] Diagnosis Pure hypercholesterolemia [facility] Diagnosis Encounter for screening mammogram for breast cancer [facility] Diagnosis Medicare annual wellness visit, subsequent- Primary Routine general medical examination at a [facility] Controlled type 2 diabetes mellitus with microalbuminuria, with long-term current use of insulin (HCC) Pure hypercholesterolemia Vitamin D deficiency Unspecified vitamin D deficiency Screening for osteoporosis Special screening for osteoporosis Asymptomatic menopause Encounter for immunization Need for other specified prophylactic vaccination against single bacterial disease [facility] Diagnosis Venous stasis dermatitis of right lower extremity Lower extremity edema Edema Essential hypertension Unspecified essential hypertension Controlled type 2 diabetes mellitus with microalbuminuria, with long-term current use of insulin (HCC) Gastroesophageal reflux disease without esophagitis Esophageal reflux [facility] Diagnosis Pure hypercholesterolemia documented in [...] malignant neoplasms, colon [facility] Diagnosis Encounter for screening mammogram for breast cancer documented in this encounter [facility] note* Diagnosis Type 2 diabetes mellitus with microalbuminuria, with long-term current use of insulin (HCC)- Primary Essential hypertension Unspecified essential hypertension Pure hypercholesterolemia Vitamin D deficiency Unspecified vitamin D deficiency Encounter for long-term current use of medication Elevated TSH Nonspecific abnormal results of thyroid function study Osteopenia, unspecified location documented in this encounter [facility] note* Diagnosis Controlled type 2 diabetes mellitus with microalbuminuria, with long-term current use of insulin (HCC) documented in this encounter [facility] noteNo assessment information availableRichmond State Hospital Services Work Phone: Evaluation note* Diagnosis Controlled type 2 diabetes mellitus with microalbuminuria, with long-term current use of insulin (HCC) documented in this encounter [facility] note* Diagnosis Controlled type 2 diabetes mellitus [...] (HCC) Morbid obesity documented in this encounter [facility] for referral (narrative)* Diagnostic Procedure Only (Routine) - Pending Review Specialty Diagnoses / Procedures Referred By Morris pink Referred To Contact [facility] Diagnoses Encounter for screening mammogram for breast cancer Procedures JEWELL SCREENING SCREENING MAMMOGRAPHY BI 2-VIEW BREAST INC CAD Rodrigo Sepulveda MD [address] [place] [address] [facility] [address] [place] [address] Referral ID Status Reason Start Date Expiration Date Visits Requested Visits Authorized [id number] Pending Review Auto-Generat ed Referral 02/28/2022 03/30/[address] [facility] for referral (narrative)* Diagnostic Procedure Only (Routine) - Pending Review Specialty Diagnoses / Procedures Referred By Morris pink Referred To Contact [facility] Diagnoses Encounter for screening mammogram for breast cancer Procedures JEWELL SCREENING SCREENING MAMMOGRAPHY BI 2-VIEW BREAST INC Rodrigo Oswald MD [address] [place] [id number] [facility] [address] [place] [address] Referral ID Status Reason Start Date Expiration Date Visits Requested Visits Authorized [id number] Pending Review Auto-Generat ed Referral 01/30/2023 02/29/[address] [facility] for referral (narrative)* Diagnostic Procedure Only (Routine) - Pending Review Specialty Diagnoses / Procedures Referred By Contac t Referred To Contact [facility] Diagnoses Encounter for screening mammogram for breast cancer Procedures JEWELL SCREENING SCREENING MAMMOGRAPHY BI 2-VIEW BREAST INC Rodrigo Oswald MD [address] [place] [id number] [facility] [address] [place] [id number] Referral ID Status Reason Start Date Expiration Date Visits Requested Visits Authorized [id number] Pending Review Auto-Generat ed Referral 01/08/2024 02/06/[address] [facility] for referral (narrative)* Diagnostic Procedure Only (Routine) - Authorized Specialty Diagnoses / Procedures Referred By Contac t Referred To Contact [facility] Diagnoses Screening for osteoporosis Asymptomatic menopause Procedures DXA-AXIAL SKELETON Rodrigo Sepulveda MD [address] [place] [id number] [id number] Referral ID Status Reason Start Date Expiration Date Visits Requested Visits Authorized [id number] Authorized Auto-Generat ed Referral 01/29/2024 02/27/[address] [facility] for referral (narrative)No reason for referral information availableRichmond State Hospital Services Work Phone: Advance Directives No Advanced Directives Records FoundDocuments on File Type Date Recorded Patient Field Party Manager Expl anation Advance Directive(s) Advance Directive Response Recorded Date/ Time Living Will Yes May 13, 2021 4:04pm Power of Dirt Supervisor Yes May 4:04pm Documents on File Type Date Recorded Patient Field Party Manager Expl anation Advance Directive(s) Chief Complaint and Reason for Visit Chief Complaint 10 m fu AFIB Reason for Visit Atherosclerotic hear t disease of [place] coronary artery without angina pectoris Atrial fibrillation [...] or prosecute any alcohol or drug abuse patient.[facility] the event this information is protected by the Federal Confidentiality of Alcohol and Drug Abuse Patient Records regulations: The Federal rules restrict any use of the information to criminally investigate or prosecute any alcohol or drug abuse patient.[facility] HospitalIn the event this information is protected by the Federal Confidentiality of Alcohol and Drug Abuse Patient Records regulations: The Federal rules restrict any use of the information to criminally investigate or prosecute any alcohol or drug abuse patient.[facility] HospitalIn the event this information is protected by the Federal Confidentiality of Alcohol and Drug Abuse Patient Records regulations: The Federal rules restrict any use of the information to criminally investigate or prosecute any alcohol or drug abuse patient.[facility] HospitalIn the event this information is protected by the Federal Confidentiality of Alcohol and Drug Abuse Patient Records regulations: The Federal rules restrict any use of the information to criminally investigate or prosecute any alcohol or drug abuse patient.[facility] HospitalIn the event this information is protected by the Federal Confidentiality of Alcohol and Drug Abuse Patient Records regulations: The Federal rules restrict any use of the information to criminally investigate or prosecute any alcohol or drug abuse patient.[facility] HospitalIn the event this information is protected by the Federal Confidentiality of Alcohol and Drug Abuse Patient Records regulations: The Federal rules restrict any use of the information to criminally investigate or prosecute any alcohol or drug abuse patient.[facility] HospitalIn the event this information is protected by the Federal Confidentiality of Alcohol and Drug Abuse Patient Records regulations: The Federal rules restrict any use of the information to criminally investigate or prosecute any alcohol or drug abuse patient.[facility] HospitalIn the event this information is protected by the Federal Confidentiality of Alcohol and Drug Abuse Patient Records regulations: The Federal rules restrict any use of the information to criminally investigate or prosecute any alcohol or drug abuse patient.[facility] HospitalIn the event this information is protected by the Federal Confidentiality of Alcohol and Drug Abuse Patient Records regulations: The Federal rules restrict any use of the information to criminally investigate or prosecute any alcohol or drug abuse patient.[facility] HospitalIn the event this information is protected by the Federal Confidentiality of Alcohol and Drug Abuse Patient Records regulations: The Federal rules restrict any use of the information to criminally investigate or prosecute any alcohol or drug abuse patient.[facility] HospitalIn the event this information is protected by the Federal Confidentiality of Alcohol and Drug Abuse Patient Records regulations: The Federal rules restrict any use of the information to criminally investigate or prosecute any alcohol or drug abuse patient.[facility] HospitalIn the event this information is protected by the Federal Confidentiality of Alcohol and Drug Abuse Patient Records regulations: The Federal rules restrict any use of the information to criminally investigate or prosecute any alcohol or drug abuse patient.[facility] HospitalIn the event this information is protected by the Federal Confidentiality of Alcohol and Drug Abuse Patient Records regulations: The Federal rules restrict any use of the information to criminally investigate or prosecute any alcohol or drug abuse patient.[facility] HospitalIn the event this information is protected by the Federal Confidentiality of Alcohol and Drug Abuse Patient Records regulations: The Federal rules restrict any use of the information to criminally investigate or prosecute any alcohol or drug abuse patient.[facility] HospitalIn the event this information is protected by the Federal Confidentiality of Alcohol and Drug Abuse Patient Records regulations: The Federal rules restrict any use of the information to criminally investigate or prosecute any alcohol or drug abuse patient.[facility] HospitalIn the event this information is protected by the Federal Confidentiality of Alcohol and Drug Abuse Patient Records regulations: The Federal rules restrict any use of the information to criminally investigate or prosecute any alcohol or drug abuse patient.[facility] HospitalIn the event this information is protected by the Federal Confidentiality of Alcohol and Drug Abuse Patient Records regulations: The Federal rules restrict any use of the information to criminally investigate or prosecute any alcohol or drug abuse patient.[facility] HospitalIn the event this information is protected by the Federal Confidentiality of Alcohol and Drug Abuse Patient Records regulations: The Federal rules restrict any use of the information to criminally investigate or prosecute any alcohol or drug abuse patient.[facility] HospitalIn the event this information is protected by the Federal Confidentiality of Alcohol and Drug Abuse Patient Records regulations: The Federal rules restrict any use of the information to criminally investigate or prosecute any alcohol or drug abuse patient.[facility] HospitalIn the event this information is protected by the Federal Confidentiality of Alcohol and Drug Abuse Patient Records regulations: The Federal rules restrict any use of the information to criminally investigate or prosecute any alcohol or drug abuse patient.[facility] HospitalIn the event this information is protected by the Federal Confidentiality of Alcohol and Drug Abuse Patient Records regulations: The Federal rules restrict any use of the information to criminally investigate or prosecute any alcohol or drug abuse patient.[facility] HospitalIn the event this information is protected by the Federal Confidentiality of Alcohol and Drug Abuse Patient Records regulations: The Federal rules restrict any use of the information to criminally investigate or prosecute any alcohol or drug abuse patient.[facility] HospitalIn the event this information is protected by the Federal Confidentiality of Alcohol and Drug Abuse Patient Records regulations: The Federal rules restrict any use of the information to criminally investigate or prosecute any alcohol or drug abuse patient.[facility] HospitalIn the event this information is protected by the Federal Confidentiality of Alcohol and Drug Abuse Patient Records regulations: The Federal rules restrict any use of the information to criminally investigate or prosecute any alcohol or drug abuse patient.[facility] HospitalIn the event this information is protected by the Federal Confidentiality of Alcohol and Drug Abuse Patient Records regulations: The Federal rules restrict any use of the information to criminally investigate or prosecute any alcohol or drug abuse patient.[facility] HospitalIn the event this information is protected by the Federal Confidentiality of Alcohol and Drug Abuse Patient Records regulations: The Federal rules restrict any use of the information to criminally investigate or prosecute any alcohol or drug abuse patient.[facility] HospitalIn the event this information is protected by the Federal Confidentiality of Alcohol and Drug Abuse Patient Records regulations: The Federal rules restrict any use of the information to criminally investigate or prosecute any alcohol or drug abuse patient.[facility] HospitalIn the event this information is protected by the Federal Confidentiality of Alcohol and Drug Abuse Patient Records regulations: The Federal rules restrict any use of the information to criminally investigate or prosecute any alcohol or drug abuse patient.[facility] HospitalIn the event this information is protected by the Federal Confidentiality of Alcohol and Drug Abuse Patient Records regulations: The Federal rules restrict any use of the information to criminally investigate or prosecute any alcohol or drug abuse patient.[facility] HospitalIn the event this information is protected by the Federal Confidentiality of Alcohol and Drug Abuse Patient Records regulations: The Federal rules restrict any use of the information to criminally investigate or prosecute any alcohol or drug abuse patient.[facility] HospitalIn the event this information is protected by the Federal Confidentiality of Alcohol and Drug Abuse Patient Records regulations: The Federal rules restrict any use of the information to criminally investigate or prosecute any alcohol or drug abuse patient.[facility] HospitalIn the event this information is protected by the Federal Confidentiality of Alcohol and Drug Abuse Patient Records regulations: The Federal rules restrict any use of the information to criminally investigate or prosecute any alcohol or drug abuse patient.[facility] HospitalIn the event this information is protected by the Federal Confidentiality of Alcohol and Drug Abuse Patient Records regulations: The Federal rules restrict any use of the information to criminally investigate or prosecute any alcohol or drug abuse patient.[facility] HospitalIn the event this information is protected by the Federal Confidentiality of Alcohol and Drug Abuse Patient Records regulations: The Federal rules restrict any use of the information to criminally investigate or prosecute any alcohol or drug abuse patient.[facility] HospitalIn the event this information is protected by the Federal Confidentiality of Alcohol and Drug Abuse Patient Records regulations: The Federal rules restrict any use of the information to criminally investigate or prosecute any alcohol or drug abuse patient.[facility] HospitalIn the event this information is protected by the Federal Confidentiality of Alcohol and Drug Abuse Patient Records regulations: The Federal rules restrict any use of the information to criminally investigate or prosecute any alcohol or drug abuse patient.[facility] HospitalIn the event this information is protected by the Federal Confidentiality of Alcohol and Drug Abuse Patient Records regulations: The Federal rules restrict any use of the information to criminally investigate or prosecute any alcohol or drug abuse patient.[facility] HospitalIn the event this information is protected by the Federal Confidentiality of Alcohol and Drug Abuse Patient Records regulations: The Federal rules restrict any use of the information to criminally investigate or prosecute any alcohol or drug abuse patient.[facility] HospitalIn the event this information is protected by the Federal Confidentiality of Alcohol and Drug Abuse Patient Records regulations: The Federal rules restrict any use of the information to criminally investigate or prosecute any alcohol or drug abuse patient.[facility] HospitalIn the event this information is protected by the Federal Confidentiality of Alcohol and Drug Abuse Patient Records regulations: The Federal rules restrict any use of the information to criminally investigate or prosecute any alcohol or drug abuse patient.[facility] HospitalIn the event this information is protected by the Federal Confidentiality of Alcohol and Drug Abuse Patient Records regulations: The Federal rules restrict any use of the information to criminally investigate or prosecute any alcohol or drug abuse patient.[facility] HospitalIn the event this information is protected by the Federal Confidentiality of Alcohol and Drug Abuse Patient Records regulations: The Federal rules restrict any use of the information to criminally investigate or prosecute any alcohol or drug abuse patient.[facility] HospitalIn the event this information is protected by the Federal Confidentiality of Alcohol and Drug Abuse Patient Records regulations: The Federal rules restrict any use of the information to criminally investigate or prosecute any alcohol or drug abuse patient.[facility] HospitalIn the event this information is protected by the Federal Confidentiality of Alcohol and Drug Abuse Patient Records regulations: The Federal rules restrict any use of the information to criminally investigate or prosecute any alcohol or drug abuse patient.[facility] HospitalIn the event this information is protected by the Federal Confidentiality of Alcohol and Drug Abuse Patient Records regulations: The Federal rules restrict any use of the information to criminally investigate or prosecute any alcohol or drug abuse patient.[facility] HospitalIn the event this information is protected by the Federal Confidentiality of Alcohol and Drug Abuse Patient Records regulations: The Federal rules restrict any use of the information to criminally investigate or prosecute any alcohol or drug abuse patient.[facility] Reason for Visit (unrecogniz ed section and [...] Care Teams (unrecognized sec tion and content) Digital Asset Specialist Relationship Specialty Start Date End Date Rodrigo Sepulveda MD [address] [place] [address] PCP - General 12/07/02 [facility] [address] [place] [address] Pharmacist Pharmacy 02/04/20 Digital Asset Specialist Relationship Specialty Start Date End Date Rodrigo Sepulveda MD [address] [place] [address] PCP - General 12/07/02 [facility] [address] [place] [address] Pharmacist Pharmacy 02/04/20 Digital Asset Specialist Relationship Specialty Start Date End Date Rodrigo Sepulveda MD [address] [place] [address] PCP - General 12/07/02 Chris Simms, [facility] [address] [place] [address] Pharmacist Pharmacy 02/04/20 Digital Asset Specialist Relationship Specialty Start Date End Date Rodrigo Sepulveda MD [address] [place] [address] PCP - General 12/07/02 Chris Simms, [facility] [address] [place] [address] Pharmacist Pharmacy 02/04/20 Digital Asset Specialist Relationship Specialty Start Date End Date Rodrigo Sepulveda MD [address] [place] [address] PCP - General 12/07/02 Chris Simms, [facility] [address] [place] [address] Pharmacist Pharmacy 02/04/20 Digital Asset Specialist Relationship Specialty Start Date End Date Rodrigo Sepulveda MD [address] [place] [address] PCP - General 12/07/02 Chris Simms, [facility] [address] [place] [address] Pharmacist Pharmacy 02/04/20 Digital Asset Specialist Relationship Specialty Start Date End Date Rodrigo Sepulveda MD [address] [place] [address] PCP - General 12/07/02 Chris Simms, [facility] [address] [place] [address] Pharmacist Pharmacy 02/04/20 Digital Asset Specialist Relationship Specialty Start Date End Date Rodrigo Sepulveda MD [address] [place] [address] PCP - General 12/07/02 Chris Simms, [facility] [address] [place] [address] Pharmacist Pharmacy 02/04/20 Digital Asset Specialist Relationship Specialty Start Date End Date Rodrigo Sepulveda MD [address] [place] [address] PCP - General 12/07/02 Chris Simms, [facility] [address] [place] [address] Pharmacist Pharmacy 02/04/20 Digital Asset Specialist Relationship Specialty Start Date End Date Rodrigo Sepulveda MD [address] [place] [address] PCP - General 12/07/02 Chris Simms, [facility] [address] [place] [address] Pharmacist Pharmacy 02/04/20 Digital Asset Specialist Relationship Specialty Start Date End Date Rodrigo Sepulveda MD [address] [place] [address] PCP - General 12/07/02 MaoChris, [facility] [address] [place] [address] Pharmacist Pharmacy 02/04/20 Digital Asset Specialist Relationship Specialty Start Date End Date Rodrigo Sepulveda MD [address] [place] [address] PCP - General 12/07/02 Chris Simms, [facility] [address] [place] [address] Pharmacist Pharmacy 02/04/20 Digital Asset Specialist Relationship Specialty Start Date End Date Rodrigo Sepulveda MD [address] [place] [address] PCP - General 12/07/02 Chris Simms, [facility] [address] [place] [address] Pharmacist Pharmacy 02/04/20 Digital Asset Specialist Relationship Specialty Start Date End Date Rodrigo Sepulveda MD [address] [place] [address] PCP - General 12/07/02 MaoChris francis, [facility] [address] [place] [address] Pharmacist Pharmacy 02/04/20 Digital Asset Specialist Relationship Specialty Start Date End Date Rodrigo Sepulveda MD [address] [place] [address] PCP - General 12/07/02 Maotito Chris, [facility] [address] [place] [address] Pharmacist Pharmacy 02/04/20 Digital Asset Specialist Relationship Specialty Start Date End Date Rodrigo Sepulveda MD [address] [place] [address] PCP - General 12/07/02 [facility] [address] [place] [address] Pharmacist Pharmacy 02/04/20 Digital Asset Specialist Relationship Specialty Start Date End Date Rodrigo Sepulveda MD [address] [place] [address] PCP - General 12/07/02 Digital Asset Specialist Relationship Specialty Start Date End Date Rodrigo Sepulveda MD [address] [place] [address] PCP - General 12/07/02 Digital Asset Specialist Relationship Specialty Start Date End Date Rodrigo Sepulveda MD [address] [place] [address] PCP - General 12/07/02 Digital Asset Specialist Relationship Specialty Start Date End Date Rodrigo Sepulveda MD [address] [place] [address] PCP - General 12/07/02 Digital Asset Specialist Relationship Specialty Start Date End Date Rodrigo Sepulveda MD [address] [place] [address] PCP - General 12/07/02 Digital Asset Specialist Relationship Specialty Start Date End Date Rodrigo Sepulveda MD [address] [place] [address] PCP - General 12/07/02 Digital Asset Specialist Relationship Specialty Start Date End Date Rodrigo Sepulveda MD [address] [place] [address] PCP - General 12/07/02 Digital Asset Specialist Relationship Specialty Start Date End Date Rodrigo Sepulveda MD [address] [place] [address] PCP - General 12/07/02 Digital Asset Specialist Relationship Specialty Start Date End Date Rodrigo Sepulveda MD [address] [place] [address] PCP - General 12/07/02 Digital Asset Specialist Relationship Specialty Start Date End Date Rodrigo Sepulveda MD [address] [place] [address] PCP - General 12/07/02 Jillian Mojica, [employer] TEACHER.HOT DIE PICKER [address] [place] [address] Qa Lead Internal Medicine 08/10/24 Benita Beltran APRN.COLLECTION TEAM LEAD [address] [facility] [place] [address] Qa Lead Internal Medicine 08/10/24 Digital Asset Specialist Relationship Specialty Start Date End Date Rodrigo Sepulveda MD [address] [facility] [place] [address] PCP - General 12/07/02 Jillian Mojica APRN.HOT DIE PICKER [address] [place] [address] Qa Lead Internal Medicine 08/10/24 Benita Beltran APRN.COLLECTION TEAM LEAD [address] [place] [address] Qa Lead Internal Medicine 08/10/24 Digital Asset Specialist Relationship Specialty Start Date End Date Rodrigo Sepulveda MD [address] [facility] [place] [address] PCP - General 12/07/02 Jillian Mojica APRN.HOT DIE PICKER [address] [place] [address] Qa Lead Internal Medicine 08/10/24 Benita Beltran APRN.COLLECTION TEAM LEAD [address] [place] [address] Qa Lead Internal Medicine 11/24/24 Digital Asset Specialist Relationship Specialty Start Date End Date Rodrigo Sepulveda MD [address] [place] [address] PCP - General 12/07/02 Jillian Mojica, [employer] TEACHER.HOT DIE PICKER [address] [facility] [place] [address] Qa Lead Internal Medicine 08/10/24 Benita Beltran [employer] FRENCH TEACHER.COLLECTION TEAM LEAD [address] [facility] [place] [address] Qa Lead Internal Medicine 11/24/24 Digital Asset Specialist Relationship Specialty Start Date End Date Rodrigo Sepulveda MD [address] [facility] [place] [address] PCP - General 12/07/02 Jillian Mojica, [employer] FRENCH TEACHER.HOT DIE PICKER [address] [facility] [place] [address] Qa Lead Internal Medicine 08/10/24 Benita Beltran [employer] FRENCH TEACHER.COLLECTION TEAM LEAD [address] [facility] [place] [address] Qa Lead Internal Medicine 11/24/24 Digital Asset Specialist Relationship Specialty Start Date End Date Rodrigo Sepulveda MD [address] [facility] [place] [address] PCP - General 12/07/02 Jillian Mojica, [employer] FRENCH TEACHER.HOT DIE PICKER [address] [place] [address] Qa Lead Internal Medicine 08/10/24 Benita Beltran [employer] FRENCH TEACHER.COLLECTION TEAM LEAD [address] [facility] [place] [address] Qa Lead Internal Medicine 11/24/24 Digital Asset Specialist Relationship Specialty Start Date End Date Rodrigo Sepulveda MD [address] [place] [address] PCP - General 12/07/02 Benita Beltran, [employer] FRENCH TEACHER.COLLECTION TEAM LEAD [address] [place] [address] Qa Lead Internal Medicine 11/24/24 Jillian Mojica, [employer] FRENCH TEACHER.HOT DIE PICKER [address] [place] [address] [facility] Internal Medicine 01/20/25 Digital Asset Specialist Relationship Specialty Start Date End Date Rodrigo Sepulveda MD [address] [place] [address] PCP - General 12/07/02 Benita Beltran, [employer] FRENCH TEACHER.COLLECTION TEAM LEAD [address] [place] [address] Qa Lead Internal Medicine 11/24/24 Jillian Mojica, [employer] FRENCH TEACHER.HOT DIE PICKER [address] [place] [address] [facility] Internal Medicine 01/20/25 Team Status: Active [...] February 04, 2025 End: February 04, 2025 Digital Asset Specialist Relationship Specialty Start Date End Date Rodrigo Sepulveda MD [address] [place] [address] PCP - General 12/07/02 Benita Beltran APRN.COLLECTION TEAM LEAD [address] [place] [address] Qa Lead Internal Medicine 11/24/24 Jillian Mojica, [employer] FRENCH TEACHER.HOT DIE PICKER [address] [place] [address] Qa Lead Internal Medicine 01/20/25 Digital Asset Specialist Relationship Specialty Start Date End Date Rodrigo Sepulveda MD [address] [place] [address] PCP - General 12/07/02 Benita Beltran APRN.COLLECTION TEAM LEAD [address] [place] [address] Qa Lead Internal Medicine 11/24/24 Jillian Mojica, [employer] FRENCH TEACHER.HOT DIE PICKER [address] [place] [address] Qa Lead Internal Medicine 01/20/25 Digital Asset Specialist Relationship Specialty Start Date End Date Rodrigo Sepulveda MD [address] [place] [address] PCP - General 12/07/02 Benita Beltran APRN.COLLECTION TEAM LEAD [address] [place] [address] Qa Lead Internal Medicine 11/24/24 Jillian Mojica, [employer] FRENCH TEACHER.HOT DIE PICKER [address] [place] [address] [facility] Internal Medicine 01/20/25 Goals (unrecognized section and content) Goals may be documented in a n alternate sectionGoals may be documented in an alternate section INFORMATION SOURCE (unrecogn ized section and content) DATE CREATED AUTHOR 02/05/2025 [facility] DATE CREATED AUTHOR AUTHOR'S VIDAL MUNIZ 03/16/2025 [facility] FOR RECORDS PERTAINING TO PATIENTS WHO ARE [...] BE BASED ON THE PRIMARY CLINICAL RECORDS. [facility]. provides no warranty or guarantee of the accuracy or completeness of information in this document.
[2025-03-22 23:45] LABS: Mucous, Urine 0 SEEN /hpf (<or=2+)
[2025-03-22 23:46] VITALS: BP 133/73; PULSE 90; RESP 25; TEMP 37.5; O2SAT 98
[2025-03-22 23:48] LABS: Color, Urine Amber (Yellow); Glucose, Dipstick Normal (Normal); Ketone-Dipstick Negative (Negative); Leukocyte Esterase-Dipstick 25 /ul (Negative); Nitrite-Dipstick Negative (Negative); Occult Blood-Urine 250 /ul (Negative); Protein-Dipstick 500 mg/dl (Negative); Specific Gravity, Urine 1.010 (1.002-1.030); Urine Bilirubin Dipstick Negative (Negative)
[2025-03-23] VITALS (13 sets, daily range): BP systolic 98–124; BP diastolic 63–81; PULSE 69–100; RESP 16–95; TEMP 36.4–36.9; O2SAT 94–100; BMI 39.4
--- NOTE | 2025-03-23 | PCM.HP.STD ---
HPI - General General Date of Admission: 03/22/25 Date of Service: 03/22/25 Chief Complaint: Generalized weakness HPI Narrative FORTINO MONTES, is a 69 F who presents to the emergency room with chief complaint of generalized weakness and overall not feeling well. Patient states onset of the symptoms began yesterday and has progressed today. Patient denies any chest pain, shortness of breath or fevers or chills at present time and no nausea vomiting or diarrhea either. Patient has significant past medical history of atrial fibrillation chronic lower extremity edema. CBC shows elevated leukocytosis 26,000, hemoglobin 11.9, platelet count of 200, INR 1.9, sodium 137, potassium 4.1 with an anion gap of 16, creatinine 1.24, lactate 2.5, AST and ALT are within normal limits. Patient's proBNP PE was 31,[phone] which is consistent with her chest x-ray which showed interstitial edema and vascular congestion as well as possible multifocal pneumonia. Patient was started on Rocephin and azithromycin in the emergency room and will be admitted to the PCU due to atrial fibrillation initially RVR that has subsequently returned to normal rate. There is also concern for chronic left leg cellulitis. [facility] Medical History Type 2 diabetes mellitus Mixed hyperlipidemia Atherosclerotic heart disease of [place] coronary artery without angina pectoris Essential hypertension Pulmonary hypertension assoc with unclear multi-factorial mechanisms MORGAN (obstructive sleep apnea) CAD (coronary artery disease) Cardiomyopathy History of left heart catheterization (LHC) (~01/27/21) Sleep apnea GERD (gastroesophageal reflux disease) Diabetes Home Medications Medication Instructions Recorded Last Taken Type felodipine 10 mg tablet,extended 20 mg PO DAILY High BP 12/14/19 05/13/21 10:00 History release 24 hr glimepiride 4 mg tablet 4 mg PO BIDCM Diabetes 12/14/19 05/13/21 10:00 History omeprazole 20 mg capsule,delayed 20 mg PO DAILY GERD 12/14/19 05/13/21 10:00 History release multivitamin 1 tab PO DAILY SUPPLEMENT 01/25/21 05/13/21 10:00 History simvastatin 40 mg tablet 40 mg PO QHS #90 tabs 02/27/21 05/12/21 21:00 Rx insulin glargine 100 unit/mL (3 18 unit subcut QHS DM 12/25/21 Unknown History mL) subcutaneous pen ferrous sulfate 325 mg (65 mg 325 mg PO DAILY 07/09/23 Unknown History iron) tablet (FeroSul) furosemide 40 mg tablet See Rx Instructions .Route 08/28/23 Unknown Rx .COMPLEX #180 tabs cholecalciferol (vitamin D3) 50 50 mcg PO DAILY 02/11/24 Unknown History mcg (2,000 unit) capsule apixaban 5 mg tablet (Eliquis) 5 mg PO BID #60 tabs 05/12/24 Unknown Rx carvedilol 12.5 mg tablet See Rx Instructions .Route 07/27/24 Unknown Rx .COMPLEX #180 tabs hydralazine 25 mg tablet 25 mg PO TID #270 tabs 11/11/24 Unknown Rx potassium chloride 20 mEq 20 meq PO BID 02/04/25 Unknown History tablet,extended release (K-Tab) digoxin 125 mcg (0.125 mg) tablet 125 mcg PO DAILY #90 tabs 03/01/25 Unknown Rx isosorbide mononitrate 30 mg 30 mg PO DAILY #90 tabs 03/01/25 Unknown Rx tablet,extended release 24 hr Allergy/AdvReac Type Severity Reaction Status Date / Time lisinopril Allergy Laryngospas Verified 02/04/25 14:13 ms Family History Mother No history of heart disease Father No history of heart disease Surgical History History of tonsillectomy Social History Smoking Status: Never smoker alcohol intake: never substance use type: does not use ROS Constitutional Constitutional: Reports weakness; Denies chills or fever(s) Eyes Eyes: Denies blurry vision ENT HEENT: Denies abnormal hearing Cardiovascular Cardiovascular: Denies chest pain Respiratory/Chest Respiratory/Chest: Reports shortness of breath with exertion Gastrointestinal Gastrointestinal: Denies abdominal pain Genitourinary Genitourinary: Denies dysuria Musculoskeletal Musculoskeletal: Reports extremity pain Integumentary Integumentary: Reports dry skin Neurologic Neurologic: Denies abnormal speech or confusion Psychiatric Psychiatric: Denies anxiety Vital Signs Vital Signs Vital Signs: 03/22/25 20:59 03/22/25 21:00 03/22/25 21:02 Temperature 99.7 F H 99.7 F H Temperature Source Oral Oral Pulse Rate 102 H 105 H Respiratory Rate 30 H 32 H Respiratory Effort Normal Respiratory Pattern Normal Blood Pressure 156/80 H 140/80 H Blood Pressure Mean 105 100 Pulse Ox 100 100 Oxygen Delivery Method Room Air Room Air Oxygen Flow Rate (L/min) 03/22/25 21:10 03/22/25 21:18 03/22/25 22:48 Temperature 100.5 F H Temperature Source Oral Pulse Rate 85 Respiratory Rate 24 H Respiratory Effort Respiratory Pattern Blood Pressure 143/84 H Blood Pressure Mean 103 Pulse Ox 95 100 Oxygen Delivery Method Room Air Room Air Room Air Oxygen Flow Rate (L/min) 03/22/25 23:46 Temperature 99.5 F H Temperature Source Oral Pulse Rate 90 Respiratory Rate 25 H Respiratory Effort Respiratory Pattern Blood Pressure 133/73 H Blood Pressure Mean 93 Pulse Ox 98 Oxygen Delivery Method Nasal Cannula Oxygen Flow Rate (L/min) 3 Weight Weight: 248 lb 7.375 oz Body Mass Index (BMI) 40.1 Physical Exam Const oriented x3 General Appearance: cooperative and well developed HEENT normocephalic and head/scalp atraumatic Neck no lymphadenopathy Lymph Lymphatic: no lymphadenopathy noted Resp normal respiratory effort, normal air movement and clear to auscultation bilaterally Cardio S1 normal heart sound and S2 normal heart sound Rhythm: abnormal rhythm irregularly irregular Extremity Extremity Narrative: 3+ lower extremity edema with left leg erythema and warmth around lower calf Skin General Skin Exam: no breakdown Neuro no focal motor deficits and no sensory deficits noted Psych cooperative and affect normal Results Lab / Micro Data 03/22/25 21:20 03/22/25 21:20 Labs: Laboratory Results - last 24 hr 03/22/25 21:20: WBC Cancelled 03/22/25 21:20: WBC 26.6 H, Corrected WBC Cancelled, RBC Cancelled 03/22/25 21:20: RBC 4.11 L, Hgb Cancelled 03/22/25 21:20: Hgb 11.9 L, Hct Cancelled 03/22/25 21:20: Hct 36.7 L, MCV Cancelled 03/22/25 21:20: MCV 89.3, MCH Cancelled 03/22/25 21:20: MCH 29.0, MCHC Cancelled 03/22/25 21:20: MCHC 32.4, RDW Std Deviation Cancelled 03/22/25 21:20: RDW Std Deviation 45.5 H, RDW Coeff of Rocio Cancelled 03/22/25 21:20: RDW Coeff of Rocio 13.9, Plt Count Cancelled 03/22/25 21:20: Plt Count 200, MPV Cancelled 03/22/25 21:20: MPV 11.4, Immature Gran % (Auto) Cancelled 03/22/25 21:20: Immature Gran % (Auto) 1.800 H, Neut % (Auto) Cancelled 03/22/25 21:20: Neut % (Auto) 92.9 H, Lymph % (Auto) Cancelled 03/22/25 21:20: Lymph % (Auto) 2.3 L, [place] % (Auto) Cancelled 03/22/25 21:20: [place] % (Auto) 2.7, Eos % (Auto) Cancelled 03/22/25 21:20: Eos % (Auto) 0.0, Baso % (Auto) Cancelled 03/22/25 21:20: Baso % (Auto) 0.3, Absolute Neuts (auto) Cancelled 03/22/25 21:20: Absolute Neuts (auto) 24.7 H, Absolute Lymphs (auto) Cancelled 03/22/25 21:20: Absolute Lymphs (auto) 0.62 L, Total Counted Cancelled, Neutrophils % (Manual) Cancelled, Band Neutrophils % Cancelled, Lymphocytes % (Manual) Cancelled, Monocytes % (Manual) Cancelled, Eosinophils % (Manual) Cancelled, Basophils % (Manual) Cancelled, Metamyelocytes % Cancelled, Myelocytes % Cancelled, Promyelocytes % Cancelled, Blast Cells % Cancelled, Plasma Cell % (Manual) Cancelled, Other Cells % Cancelled, Nucleated RBC % Cancelled 03/22/25 21:20: Nucleated RBC % 0, Nucleated RBCs/100 WBC Cancelled, Differential Comment Cancelled 03/22/25 21:20: Differential Comment , Diff Path Review Cancelled, Hypersegmented Neuts Cancelled, Atypical Lymphocytes Cancelled, Reactive Lymphocytes Cancelled, Smudge Cells Cancelled, Toxic Granulation Cancelled, Toxic Vacuolation Cancelled, Dohle Bodies Cancelled, Goran Rods Cancelled, Platelet Estimate Cancelled 03/22/25 21:20: Platelet Estimate ADEQUATE, Plt Morphology Comment Cancelled, RBC Morphology Cancelled 03/22/25 21:20: RBC Morphology Cancelled, Polychromasia Cancelled, Hypochromasia Cancelled, Basophilic Stippling Cancelled, Anisocytosis Cancelled 03/22/25 21:20: Anisocytosis 1+, Microcytosis Cancelled, Macrocytosis Cancelled, Spherocytes Cancelled, Sickle Cells Cancelled, Target Cells Cancelled, Tear Drop Cells Cancelled 03/22/25 21:20: Tear Drop Cells RARE, Ovalocytes Cancelled 03/22/25 21:20: Ovalocytes 1+, Stomatocytes Cancelled, Phan-[place] Bodies Cancelled, [place] Cells Cancelled, Bite Cells Cancelled, Crenated Cell Cancelled, Acanthocytes (Spur) Cancelled, Rouleaux Cancelled, Schistocytes Cancelled, PT 22.0 H, INR 1.9, APTT 42.2 H, Sodium 137, Potassium 4.1, Chloride 101, Carbon Dioxide 20.2 L, Anion Gap 16 H, BUN 31 H, Creatinine 1.24 H, Estim Creat Clear Calc 52.99, Est GFR (MDRD) Non-Af 47 L, BUN/Creatinine Ratio 25.0 H, Glucose 120 H, Lactic Acid 2.5 H*, Calcium 9.4, Total Bilirubin 0.91, AST 61 H, ALT 23, Alkaline Phosphatase 108 H, [place] [address] H, Total Protein 7.9, Albumin 4.0, Globulin 3.9, Albumin/Globulin Ratio 1.0 03/22/25 23:40: Urine Color Kaya, Urine Clarity Cloudy, Urine pH 7.0, Ur Specific [place] 1.010, Urine Protein 500 H, Urine Glucose (UA) Normal, Urine Ketones Negative, Urine Occult Blood 250 H, Urine Nitrite Negative, Urine Bilirubin Negative, Urine Urobilinogen Normal, Ur Leukocyte Esterase 25 H Imaging Radiology Impression Chest X-Ray 03/22/25 21:44 IMPRESSION: Mild pulmonary edema although multifocal pneumonia not entirely excluded. Moderate cardiomegaly. Reading Location: [facility] Assessment & Plan Assessment/Plan (1) Multifocal pneumonia: (2) CHF (congestive heart failure): (3) Cellulitis of left leg: (4) Type 2 diabetes mellitus: (5) Mixed hyperlipidemia: (6) Essential hypertension: (7) Atrial fibrillation: QUALIFIERS: Atrial fibrillation type: permanent Qualified Code(s): I48.21 - Permanent atrial fibrillation (8) GERD (gastroesophageal reflux disease): PLAN: Plan 1 multifocal pneumonia–admit patient to progressive care unit, Rocephin and azithromycin, oxygen for supportive care per protocol repeat CBC BMP in the a.m. 2. Congestive heart failure–elevated BN TP along with vascular congestion on x-ray consistent with congestive heart failure–order echocardiogram in the a.m. may consider diuresis once patient's lactate levels have normalized 3. Hypertension–continue routine home antihypertensive therapy 4. Atrial fibrillation currently rate is controlled continue anticoagulation 5. GERD–continue PPI 6. Diabetes–continue routine home medication 7. DVT prophylaxis–patient is on anticoagulation for A-fib already 8. Cellulitis left lower extremity–patient will benefit from Rocephin already being given for pneumonia Charges/Coding Visit Charges Inpatient E&M: 62547 Init Hosp L2
[2025-03-23 00:19] LABS: Red Blood Cells-Urine 5-10 SEEN /hpf (0-5); Squamous Epithelial Cells - UA 5-10 SEEN /hpf (5-10); Transitional Epithelial - Ur 0-5 SEEN /hpf (0-5)
[2025-03-23] MEDS: 0.9% Normal Saline (1000mL) 1,000 ML 999 ML IV (00:33)
--- NOTE | 2025-03-23 01:22 | ECHOD_ITS ---
Reason For Study Reason For Study: CONGESTIVE HEART FAILURE Procedure This was a 2D Doppler, Color Flow transthoracic echocardiogram. Exam performed portable in patient room. Left Ventricle Normal LV size. The left ventricular ejection fraction is 50 %. There is mild global hypokinesis of the left ventricle. Right Ventricle Moderately dilated right ventricle. Mild global right ventricular systolic dysfunction. Mitral Valve Normal mitral valve. Tricuspid Valve Normal tricuspid valve. Mild tricuspid valve insufficiency. Pulmonary artery systolic pressure is 37 mmHg. Aortic Valve Trisinus/trileaflet aortic valve. Pulmonic Valve Normal pulmonic valve. Mild (1+) pulmonic valve insufficiency. Great Vessels Normal aortic root. The pulmonary artery is normal size. The inferior vena cava is dilated. and partially collapses. Pericardium/Pleural No pericardial effusion. MMode/2D Measurements & Calculations LVIDd: 4.9 cm IVSd: 1.2 cm LVOT diam: 2.1 cm LVIDs: 3.1 cm LVPWd: 1.1 cm LVOT area: 3.4 cm2 RVDd: 4.8 cm FS: 37.4 % asc Aorta Diam: 3.8 cm LAV(MOD-bp): 81.8 ml LVAd ap4: 26.2 cm2 LAV(MOD-bp) Indexed: 37.7 ml/m2 LVLd ap4: 7.5 cm LAV(MOD-sp2): 88.0 ml EDV(MOD-sp4): 75.1 ml LAV(MOD-sp4): 74.2 ml EDV(sp4-el): 78.0 ml LVAs ap4: 16.7 cm2 LVLs ap4: 6.4 cm ESV(MOD-sp4): 36.2 ml ESV(sp4-el): 36.7 ml EF(MOD-sp4): 51.8 % EF(sp4-el): 52.9 % SV(MOD-sp4): 38.9 ml SV(MOD-sp2): 28.4 ml LVAd ap2: 25.3 cm2 LVLd ap2: 7.3 cm SI(MOD-sp4): 17.9 ml/m2 SI(MOD-sp2): 13.1 ml/m2 EDV(MOD-sp2): 71.9 ml EDV(sp2-el): 74.3 ml LVAs ap2: 18.7 cm2 LVLs ap2: 6.6 cm ESV(MOD-sp2): 43.5 ml ESV(sp2-el): 44.8 ml EF(MOD-sp2): 39.5 % SV(sp4-el): 41.2 ml Ao sinus diam: 3.[address] [place]: 2.9 cm LA A4 area: 23.9 cm2 LA dimension(2D): 4.5 cm RA A4 area: 15.7 cm2 TAPSE: 1.5 cm Time Measurements MV dec time: 0.19 sec Doppler Measurements & Calculations MV E max heidy: 121.4 cm/sec MV V2 max: 137.8 cm/sec Ao V2 max: 140.9 cm/sec MV max P.6 mmHg Ao max P.0 mmHg MV V2 mean: 81.6 cm/sec Ao V2 mean: 101.9 cm/sec MV mean P.2 mmHg Ao mean P.7 mmHg MV V2 VTI: 35.2 cm Ao V2 VTI: 28.5 cm MVA(VTI): 1.9 cm2 AV (velocity ratio): 0.70 ADVE(I,D): 2.4 cm2 DAVE(V,D): 2.6 cm2 LV V1 max: 107.5 cm/sec SV(LVOT): 67.3 ml PA V2 max: 92.3 cm/sec LV V1 max P.6 mmHg LV V1 mean P.4 mmHg LV V1 mean: 72.1 cm/sec LV V1 VTI: 20.0 cm TR max heidy: 291.1 cm/sec TR max P.9 mmHg ECHO/Echo Complete Interpretation Summary Normal LV size. The left ventricular ejection fraction is 50 %. Moderately dilated right ventricle. Mild global right ventricular systolic dysfunction. Mild tricuspid valve insufficiency. Pulmonary artery systolic pressure is 37 mmHg. Ordering Physician: Martínez Archer Referring Physician: Emperatriz Sepulveda M.D. Performed By: Leslie Sebastian RDCS
[2025-03-23 01:36] LABS: Reflex Lactate? Y
[2025-03-23] MEDS: 0.9% Normal Saline (1000mL) 1,000 ML 50 ML IV (01:37)
[2025-03-23 02:30] LABS: Hematocrit 31.2 % (37-47); Hemoglobin 10.3 g/dL (12.0-15.0); Immature Granulocytes Count 0.260 X10^3/uL (0.0-0.0); Mean Corp Hgb Conc 33.0 g/dL (32-36); Mean Corpuscular Volume 89.1 fL (81-99); Mean Platelet Vol. 10.9 fl (6.2-12.0); NRBC Flagged by Analyzer 0 % (0-5); Platelet Count 154 K/mm3 (150-450); RBC Distribution Width CV 14.0 % (11.6-14.6); RBC Distribution Width SD 45.1 fl (35.1-43.9); Red Blood Count 3.50 M/mm3 (4.2-5.4); White Blood Count 20.4 K/mm3 (4.4-11.0)
--- OUTSIDE RECORDS SUMMARY | 2025-03-23 02:52 | XMS RPT_ITS | CCD ---
Author Organization [facility] CliniSyil Care Team Providers Care Hot Saw Helper Name Role Phone Rodrigo Jimenez MD Primary Care Provider [facility], Keti Unavailable Dr. Rodrigo Jimenez Primary Care Provider Dr. Rodrigo Jimenez Referring Provider Dr. Martínez Dawson Attending Provider Rodrigo Jimenez MD Primary Care Provider [facility], Keti Unavailable Rodrigo Jimenez MD Primary Care Provider [facility], Keti Unavailable [facility], Keti Unavailable Rodrigo Jimenez MD Primary Care Provider Mojica TRANSLATOR DEAF.REGISTERED PHLEBOTOMIST PART TIME, Jillian Unavailable Ruby TRANSLATOR DEAF.[employer], Benita Unavailable Ruby TRANSLATOR DEAF.[employer], Benita Unavailable Mojica TRANSLATOR DEAF.REGISTERED PHLEBOTOMIST PART TIME, Jillian Unavailable Rodrigo Jimenez Primary Care Unavailable Milton Linton Attending Unavailable Rodrigo Jimenez Referring Unavailable Evy Pascal NP Attending Unavailable Rodrigo Jimenez Referring Unavailable Rodrigo Jimenez Primary Care Unavailable Dr. Rodrigo Jimenez MD Primary Care Provider [phone] Dr. Rodrigo Jimenez MD Referring Provider Dr. Milton Linton MD Attending Provider RODRIGO JIMENEZ Attending Unavailable SELF Referring Unavailable TALAMPAS, RODRIGO D Primary Care Unavailable TALAMPAS, RODRIGO D Referring Unavailable TALAMPAS, RODRIGO D Primary Care Unavailable JILLIAN MOJICA Attending Unavailable TALAMPAS, RODRIGO D Primary Care Unavailable TALAMPAS, RODRIGO D Referring Unavailable TALAMPAS, RODRIGO D Primary Care Unavailable Dr. Parminder Jama DO Emergency Provider Dr. Martínez Archer MD Admit Provider [phone] Martínez Archer MD Attending Provider [phone] Suzi GUERRERO, Dr. Soliz Other Provider Allergies Allergy Classification Reported Allergen(s) Allergy Type Date of Onset Reaction(s) Facility (20 sources) Lisinopril; 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: [LISINOPRIL] Drug Allergy 03-10-2014 [facility] (1 source) Lisinopril Drug Allergy 02-04-[address] [facility] Repository Medications Current Medications Medication Drug Class(es) Dates Sig (Normalized) Sig (Original) carvedilol 12.5 mg oral tablet (20 sources) alpha-Adrenergic Rosanne, beta-Adrenergic Rosanne Start: 01-29-2021 End: 03-23-2025 take 1 tablet by mouth twice daily at mealtime Carvedilol 12.5 mg tablet Active 12.5 mg PO DAILY March 23, 2025 12:00am HYPERTENSION TAKE 1 TABLET TWICE DAILY, MUST ADMINISTER WITH MEALS, FOOD Start: 12-14-2019 End: 02-12-2022 take 1 tablet by mouth twice daily Carvedilol 3.125 MG tablet Discontinued 3.125 mg PO TWICE A DAY December 14, 2019 12:00am January 29, 2021 12:55pm Comment on above: Take 1 tablet by angeline th twice daily. TAKE 1 TABLET BY ANGELINE TH TWICE A DAY WITH A MEAL OR FOOD cholecalciferol 0.025 mg oral capsule (6 sources) Vitamin D Start: take 1 capsule by mouth once daily Cholecalciferol, Vitamin D3, (VITAMIN D) 25 mcg (1,000 unit) cap Indications: Vitamin D deficiency Take 1 capsule by mouth once daily. 02/17/2025 Active Start: 02-11-2024 take 1 capsule by mo [facility] once daily Cholecalciferol (Vitamin D3) 50 mcg (2,000 unit) capsule Active 50 ug PO DAILY February 11, 2024 12:00am DEFICIENCY Start: 12-25-2021 End: 06-25-2022 take 1 tablet by mouth once daily Cholecalciferol (Vitamin D3) 25 mcg (1,000 unit) tablet Discontinued 25 ug PO DAILY December 25, 2021 12:00am June 25, 2022 1:11pm Cranberry Fruit (20 sources) Non-Standardized Food Allergenic [...] 25, 2021 12:00am February 11, 2024 1:31pm SUPPLEMENT Start: 01-25-2021 End: 02-11-2024 take 1 tablet by mouth three times daily Cranberry Fruit (Cranberry) 450 mg Tablet Discontinued 900 mg PO THREE TIMES A DAY January 25, 2021 12:00am February 11, 2024 1:31pm End: 08-03-2024 CRANBERRY 08/03/2024 Discont inued CRANBERRY Active CRANBERRY digoxin 0.125 mg oral tablet (20 sources) Cardiac Glycoside Start: 01-29-2021 End: 03-01-2025 take 1 tablet by mouth once daily Digoxin 125 mcg (0.125 mg) tablet Active 125 ug PO DAILY 90 3 March 01, 2025 9:44am heart rate Comment on above: Take 125 mcg by [...] mg PO DAILY December 14, 2019 12:00am High BP Comment on above: Take 2 tablets by mo uth once daily. glimepiride 4 mg oral tablet (20 sources) Sulfonylurea Start: End: take 1 tablet by mouth twice daily at mealtime glimepiride (AMARYL) 4 mg tablet Indications: Controlled type 2 diabetes mellitus with microalbuminuria, with long-term current use of insulin ([facility]) Take 1 tablet by mouth two times a day with meals. 180 tablet 3 05/25/2024 Active Start: 12-14-2019 End: 06-02-2022 take 1 tablet by mouth twice daily at mealtime glimepiride (AMARYL) 4 mg tablet Indications: Controlled type 2 diabetes mellitus with microalbuminuria, with long-term current use of insulin ([facility]) Take 1 tablet by mouth twice daily with meals. 180 tablet 3 06/04/2022 Active Comment on above: Take 1 tablet by angeline th twice daily with meals. Take 1 tablet by angeline th two times a day with meals. 3 ml insulin glargine 100 unt/ml pen injector (20 sources) Insulin Analog Start: 03-08-2023 End: 02-01-2025 insulin glargine (LANTUS SOLOSTAR U-100 INSULIN) 100 unit/mL (3 mL) Indications: Controlled type 2 diabetes mellitus with microalbuminuria, with long-term current use of insulin ([facility]) Inject 22-32 Units subcutaneously daily at bedtime. 3 each 11 02/01/2025 Active Start: 03-07-2022 End: 03-07-2023 insulin glargine (LANTUS ALBERT OSTAR U-100 INSULIN) 100 unit/mL (3 mL) Indications: Controlled type 2 diabetes mellitus with microalbuminuria, with long-term current use of insulin ([facility]) Inject 22 Units subcutaneously daily at bedtime. 5 Each 2 03/08/2023 Active Start: 03-07-2022 insulin glargi ne (LANTUS SOLOSTAR U-100 INSULIN) 100 unit/mL (3 mL) Indications: Controlled type 2 diabetes mellitus with microalbuminuria, with long-term current use of insulin ([facility]) Inject 22 Units subcutaneously daily at bedtime. 5 Pen 2 03/07/2022 Active Start: 12-25-2021 Insulin Glargi ne 100 unit/mL (3 mL) insulin pen Active 22 U SC AT BEDTIME December 25, 2021 10:58am DM Start: 12-25-2021 Insulin Glargi ne 100 unit/mL [...] by subcutaneous injection at bedtime Insulin Glargine 100 UNIT/ML insulin pen Discontinued 22 U SQ AT BEDTIME December 14, 2019 12:00am December 25, 2021 11:00am DM Comment on above: Inject 22 Units subc utaneously daily at bedtime. 24 hr isosorbide mononitrate 30 mg extended release oral tablet (20 sources) Nitrate Vasodilator Start: 01-30-20 End: 03-01-20 take 1 tablet by mouth once daily, then take 1 tablet by mouth every twenty-four hours Isosorbide Mononitrate 30 mg tablet extended release 24 hr Active 30 mg PO DAILY 90 3 March 01, 2025 9:44am HYPERTENSION Comment on above: Take 30 mg by mouth once daily. levothyroxine sodium 0.025 mg oral tablet (2 sources) l-Thyroxine Start: 03-23-20 take 1 tablet by mouth once daily Levothyroxine 25 mcg tablet Active 25 ug PO DAILY March 23, 2025 12:00am HYPOTHYROIDISM Start: 02-17-2025 take 1 tablet by angeline th once daily levothyroxine (SYNTHROID) 25 mcg tablet Indications: Acquired hypothyroidism Take 1 tablet by mouth once daily. 90 tablet 3 02/17/2025 Active Miscellaneous Medical Supply (20 sources) Start: 07-26-2020 Miscellaneous Medical Supply Indications: Stasis [...] lower extremities Multivitamin preparation (1 source) Start: 1 take 1 tablet by mouth once daily Multivitamin Active 1 TABLET PO DAILY January 25, 2021 5:54pm Multivitamin Tablet (2 sources) Start: 1 Multivitamin Tablet Active 1 {tbl} PO DAILY January 25, 2021 12:00am SUPPLEMENT Start: 01-25-2021 Multivitamin T ablet Active 1 {tbl} PO DAILY January 25, 2021 12:00am Multivitamins chew (20 sources) Start: 03-25-2015 Multivitamins chew Take 2 tablets daily. 0 03/25/2015 Active Comment on above: Take 2 tablets daily . nitrofurantoin, macrocrystals 25 mg / nitrofurantoin, monohydrate 75 mg oral capsule (1 source) Nitrofuran Antibacterial Start: 08-03-2024 End: 08-10-2024 take 1 capsule by mouth twice daily at mealtime nitrofurantoin monohydrate and macrocrystal (MACROBID) 100 mg capsule Take 1 capsule by mouth two times a day with meals for 7 days. 14 capsule 08/03/2024 08/10/2024 Active omeprazole 20 mg delayed release oral capsule (20 sources) Proton Pump Inhibitor Start: 07-19-2023 End: 05-25-2024 take 1 capsule by mouth once daily before breakfast omeprazole (PRILOSEC) 20 mg capsule Indications: Gastroesophageal reflux disease without esophagitis Take 1 capsule by mouth daily before breakfast. 1/2 hr before meal. 90 capsule 3 05/25/2024 Active Start: 12-14-2019 End: 06-02-2022 take 1 capsule by mouth once daily before breakfast omeprazole (PRILOSEC) 20 mg capsule Indications: Gastroesophageal reflux disease without esophagitis Take 1 capsule by mouth daily before breakfast. 1/2 hr before meal. 90 capsule 3 06/04/2022 Active Comment on above: Take 1 capsule by mo [facility] daily before breakfast. 1/2 hr before meal. microencapsulated potassium chloride 20 meq extended release oral tablet (20 sources) Start: 03-23-20 take 1 tablet by mouth twice daily Potassium Chloride 20 mEq tablet,ER particles/crystals Active 20 meq PO TWICE A DAY March 23, 2025 12:00am HYPOKALEMIA Start: 02-04-2025 take 1 tablet by angeline twice daily Potassium Chloride (K-Tab) 20 mEq [...] release Discontinued 40 meq PO DAILY 180 3 January 30, 2022 7:56am February 04, 2025 2:16pm Start: 05-04-2021 End: 05-15-2021 take 1 tablet by mouth once daily Potassium Chloride 20 mEq tablet extended release Discontinued 20 meq PO DAILY 31 08May 04, 2021 12:00am May 15, 2021 11:50am Comment on above: 1 tablet twice daily . Take 1 tablet by angeline th twice daily. simvastatin 40 mg oral tablet (20 sources) HMG-CoA Reductase Inhibitor Start: 12-14-19 End: 01-30-20 take 1 tablet by mouth once daily simvastatin (ZOCOR) 40 mg tablet Indications: Pure hypercholesterolemia Take 1 tablet by mouth once daily. 90 tablet 3 01/29/2025 Active Comment on above: Take 1 tablet by angeline th once daily. Completed/Discontinued Medications Medication Drug Class(es) Dates Sig (Normalized) Sig (Original) amiodarone hydrochloride 200 mg oral tablet (20 sources) Antiarrhythmic Start: 02-27-2021 End: 02-12-2022 take 1 tablet by mouth once daily Amiodarone 200 mg tablet Discontinued 200 mg PO DAILY 90 January 02, 2022 10:06am February 06, 2022 8:42am HR Start: 01-29-2021 End: 02-27-2021 take 1 tablet by mouth twice daily Amiodarone 200 mg tablet Discontinued 200 mg PO TWICE A DAY 60 February 27, 2021 10:57am February 27, 2021 3:38pm Comment on above: Take 200 mg by mouth once daily. apixaban 5 mg oral tablet (20 sources) Factor Xa Inhibitor Start: 01-29-2021 End: 05-12-2024 take 1 tablet by mouth twice daily Apixaban (Eliquis) 5 mg tablet Discontinued 5 mg PO TWICE A DAY 60 March 18, 2023 3:12pm May 12, 2024 2:57pm Comment on above: Take 5 mg by mouth t wice daily. Blood-Glucose Meter (ACCU-CHEK KENNETH PLUS METER) [...] too high or too low. DX: E11.65 ferrous sulfate 325 mg oral tablet (20 sources) Start: 07-09-2023 End: 03-23-2025 take 1 tablet by mouth once daily Ferrous Sulfate (Ferosul) 325 mg (65 mg iron) tablet Discontinued 325 mg PO DAILY July 09, 2023 2:42pm March 23, 2025 12:31am Start: 05-28-2023 take 1 tablet by angeline [...] (Ferosul) 325 mg (65 mg iron) Tablet Discontinued 325 mg PO TWICE A DAY 60 0 May 15, 2021 12:00am July 09, 2023 2:42pm Comment on above: Take 1 tablet by angeline th every other day. furosemide 40 mg oral tablet (20 sources) Loop Diuretic Start: 05-15-2021 End: 06-03-2024 take 1 tablet by mouth twice daily Furosemide (Lasix) 40 mg tablet Discontinued 40 mg PO TWICE A DAY 180 3 September 04, 2023 3:56pm August 28, 2023 9:02am Start: 01-29-2021 End: 05-15-2021 take 1 tablet by mouth once daily Furosemide (Lasix) 40 mg tablet Discontinued 40 mg PO DAILY 30 February 27, 2021 10:58am May 15, 2021 11:49am Comment on above: Take 1 tablet by angeline twice daily. in morning hydrALAZINE hydrochloride 25 mg oral tablet (20 sources) Arteriolar Vasodilator Start: 01-30-20 End: 11-12-19 take 1 tablet by mouth three times daily Hydralazine 25 mg tablet Discontinued 25 mg PO THREE TIMES A DAY 270 January 22, 2024 8:49am November 11, 2024 1:45pm Comment on above: Take 25 mg by mouth three times daily. lactobacillus acidophilus 460 mg oral capsule (4 sources) Start: 04-26-20 End: 02-13-20 take 1 capsule by mouth once daily FLORAJEN ACIDOPHILUS 20 billion cell cap TAKE 1 CAPSULE BY MOUTH EVERY DAY 30 capsule 0 04/26/2021 02/12/2022 Discontinued (Other) Comment on above: TAKE 1 CAPSULE BY [facility] EVERY DAY Problems Active Problems Problem Classification Problem Date Documented Date Episodic/Chronic Cardiac dysrhythmias (20 sources) Atrial fibrillation; 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: [Unspecified atrial fibrillation] Onset: 03-18-2023 Chronic Congestive heart failure; nonhypertensive (6 sources) Congestive heart failure; 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: [Heart failure, unspecified] Chronic Coronary atherosclerosis and other heart disease (7 sources) Coronary atherosclerosis; 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: [Atherosclerotic heart disease of [place] coronary artery without angina pectoris] Chronic Comment on above: Mild per cardiac cat h 01/27/21 Diabetes mellitus with complications (20 sources) Type II diabetes mellitus uncontrolled; 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: [Uncontrolled type 2 diabetes mellitus with insulin therapy] Onset: 05-01-2005 Resolved: 09-03-2021 Chronic Diabetes mellitus without complication (10 sources) Type 2 diabetes mellitus without complication; [...] 05-01-2005 09-14-2015 Chronic Fluid and electrolyte disorders (3 sources) Hypokalemia; 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: [Hypokalemia] 05-04-2021 Episodic Genitourinary symptoms and ill-defined conditions (4 sources) Albuminuria ; 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: [Proteinuria, unspecified] Onset: 02-08-2022 12-27-2023 Episodic Nutritional deficiencies (5 sources) Vitamin D deficiency; 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: [Vitamin D deficiency, unspecified] Onset: 02-17-2025 12-27-2023 Chronic Other aftercare (3 sources) Patient encounter status; 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] 12-27-2023 Episodic Other aftercare (1 source) Long-term current use of drug therapy; 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] 01-13-2025 Episodic Other aftercare (3 sources) continuous churn buttermaker (current) use of insulin; 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: [Controlled type 2 diabetes mellitus with microalbuminuria, with long-term current use of insulin (HCC)] Onset: 02-08-2022 Episodic Other aftercare (1 source) Other longterm (current) drug therapy; 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: [Encounter for long-term current use of medication] Onset: 02-02-2025 Episodic Other diseases of veins and lymphatics (1 source) Bilateral lower limb edema; 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: [Chronic venous hypertension (idiopathic) without complications of bilateral lower extremity] Chronic Other diseases of veins and lymphatics (2 sources) Disorder of vein of lower extremity; 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: [Venous insufficiency (chronic) (peripheral)] 05-25-2024 Episodic Other lower respiratory disease (3 sources) Hypoxia; 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: [Hypoxemia] 05-23-2021 Episodic Other [...] caused by tuberculosis or sexually transmitted disease) (5 sources) Cardiomyopathy; 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: [Cardiomyopathy, unspecified] Chronic Pneumonia (except that caused by tuberculosis or sexually transmitted disease) (5 sources) Pneumonia; 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: [Pneumonia, unspecified organism] 05-23-2021 Episodic Pulmonary heart disease (7 sources) Pulmonary hypertension; 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: [Other secondary pulmonary hypertension] Onset: 02-17-2025 01-27-2021 Chronic Residual codes; unclassified (4 sources) Obstructive sleep apnea syndrome; 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: [Obstructive sleep apnea (adult) (pediatric)] 01-27-2021 Chronic Residual codes; unclassified (1 source) Menopause present; 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: [Asymptomatic menopausal state] 01-29-2024 Episodic Residual codes; unclassified (2 sources) Edema of lower extremity; 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: [Localized edema] 05-25-2024 Episodic Skin and subcutaneous tissue infections (5 sources) Cellulitis; 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: [Cellulitis, unspecified] 12-15-2019 Episodic [...] sources) Long-term current use of anticoagulant; 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: [residential (current) use of anticoagulants] Onset: 08-03-2024 08-03-2024 Episodic Other aftercare (1 source) residential (current) use of anticoagulants; 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: [Chronic anticoagulation] Onset: 08-03-2024 Episodic Other bone disease and musculoskeletal deformities (20 sources) Osteopenia; 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: [Other specified disorders of bone density and structure, unspecified site] Onset: 03-03-2012 03-03-2012 Episodic Residual codes; unclassified (3 sources) History of cardiac catheterization; 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: [Other [...] Test Name Value Interpretation Reference Range Facility Absolute lymphocyte countOrd ered By: Parminder Jama on 03-22-2025 Lymphocytes Auto (Unsp spec) [#/Vol] 0.62 10*3/uL Low 0.83-4.[address] [facility] Absolute neutrophil countOrd ered By: Parminder Jama on 03-22-2025 Neutrophils (Bld) [#/Vol] 24.7 10*3/uL High 2.0-7.[address] [facility] Activated partial thrombopla stin time (aPTT) in platelet poor plasma by coagulation aOrdered By: Parminder Jama on 03-22-2025 aPTT Coag (PPP) [Time] 42.2 s High 24.1-36.2 [facility] Anion gap in Serum or Plasma Ordered By: Parminder Jama on 03-22-2025 Anion gap [Moles/Vol] 16 mmol/L High 5-15 [facility] Automated lymphocyte count a s percentage of total leukocytesOrdered By: Parminder Jama on 03-22-2025 Lymphocytes/100 WBC Auto (Unsp spec) 2.3 % Low 19-[address] [facility] BUN/creatinine ratioOrdered By: Parminder Jama on 03-22-2025 Urea nitrogen/Creatinine [Mass ratio] 25.0 mg/mg High 10-[address] [facility] Basophil percentageOrdered B y: Parminder Jaam on 03-22-2025 Basophils/100 WBC (Bld) 0.3 % 0-1 [facility] Bilirubin Test strip Ql (U)O rdered By: Parminder Jama on 03-22-2025 Bilirubin Ql (U) Negative Negative [facility] Bilirubin, totalOrdered By: Parminder Jama on 03-22-2025 Bilirubin [Mass/Vol] 0.91 mg/dL 0.00-1.30 [facility] Blood manual differential co mment interpretation (narrative result)Ordered By: Parminder Jama on 03-22-2025 Manual differential comment Francisco (Bld) [Interp] See comment [facility] Comment on above: 1+ BANDS CBC + diff autoon 03-22-2025 CBC W Auto Differential panel (Bld) [facility] Carbon dioxide, total [Moles /volume] in Central venous bloodOrdered By: Parminder Jama on 03-22-2025 CO2 [Moles/Vol] 20.2 mmol/L Low 21.0-32.[address] [facility] Chloride assayOrdered By: Mike Jama on 03-22-2025 Chloride [Moles/Vol] 101 mmol/L 98-108 [facility] Eosinophil percentageOrdered By: Parminder Jama on 03-22-2025 Eosinophils/100 WBC (Bld) 0.0 % 0-[address] [facility] Erythrocyte distribution wid th ratioOrdered By: Parminder Jama on 03-22-2025 Erythrocyte distribution width (RBC) [Ratio] 13.9 % 11.6-14.[address] [facility] Erythrocyte distribution wid th standard deviationOrdered By: Parminder Jama on 03-22-2025 Erythrocyte distribution width (RBC) [Ratio] 45.5 fl High 35.1-43.9 [facility] Glomerular filtration rate ( GFR) estimation/1.73 sq m using serum, plasma, or whole bOrdered By: Parminder Jama on 03-22-2025 GFR/1.73 sq M.predicted among non-blacks MDRD (S/P/Bld) [Vol rate/Area] 47 mL/min/{1.73_m2} Low >[address] [facility] Comment on above: mL/min/1.73m2 CKD-EP I Creatinine Equation (2020) Hematocrit Auto (Bld) [Volum e fraction]Ordered By: Parminder Jama on 03-22-2025 Hematocrit (Bld) [Volume fraction] 36.7 % Low 37-[address] [facility] Hemoglobin measurementOrdere d By: Parminder Jama on 03-22-2025 Hemoglobin (Bld) [Mass/Vol] 11.9 g/dL Low 12.0-15.[address] [facility] Immature granulocytes/100 WB C Auto (Bld)Ordered By: Parminder Jama on 03-22-2025 Immature granulocytes/100 WBC (Bld) 1.800 % High 0.0-0.[address] [facility] Comment on above: IG% - Immature Granu locytes (promyelocytes, myelocytes and metamyelocytes) > 1% indicates that a LEFT SHIFT is Present. International normalized rat io (INR) calculationOrdered By: Parminder Jama on 03-22-2025 INR Coag (Bld) [Relative time] 1.9 {INR} [facility] Ketones Test strip Ql (U)Ord ered By: Parminder Jama on 03-22-2025 Ketones Ql (U) Negative Negative [facility] Laboratory - Chemistry and C hemistry - challengeOrdered By: Parminder Jama on 03-22-2025 AST [Catalytic activity/Vol] 61 U/L High <[address] [facility] Laboratory - Hematology and Cell countsOrdered By: Parminder Jama on 03-22-2025 Anisocytosis Ql (Bld) 1+ [facility] Lactic acid measurementOrder ed By: Parminder Jama on 03-22-2025 Lactate [Moles/Vol] 2.5 mmol/L High 0.0-2.0 [facility] Comment on above: Critical Result(s) C alled at: 2346 by: MARTHA GRIFFITHS TO RAQUEL LSPARR. Results read back by same. MCV (mean corpuscular volume ) determinationOrdered By: Parminder Jama on 03-22-2025 MCV (RBC) [Entitic vol] 89.3 fL 81-99 [facility] Mean corpuscular hemoglobin (MCH) determinationOrdered By: Parminder Jama on 03-22-2025 MCH (RBC) [Entitic mass] 29.0 pg 27.0-32.[address] [facility] Mean corpuscular hemoglobin concentration (MCHC) determinationOrdered By: Parminder Jama on 03-22-2025 MCHC (RBC) [Mass/Vol] 32.4 g/dL 32-36 [facility] Mean platelet volume determi nationOrdered By: Parminder Jama on 03-22-2025 Platelet mean volume (Bld) [Entitic vol] 11.4 fL 6.2-12.[address] [facility] Microscopic analysis of urin e for red blood cells (RBC)Ordered By: Parminder Jama on 03-22-2025 Microscopic analysis of urine for red blood cells (RBC) 5-10 SEEN /hpf 0-[address] [facility] Monocyte percentageOrdered B y: Parminder Jama on 03-22-2025 Monocytes/100 WBC (Bld) 2.7 % 0-10 [facility] Mucus LM Ql (Urine sed)Order ed By: Parminder Jama on 03-22-2025 Mucus Ql (Urine sed) 0 SEEN /hpf [facility] Natriuretic peptide.B prohor elizabeth N-Terminal [Mass/volume] in Serum or PlasmaOrdered By: Parminder Jama on 03-22-2025 Natriuretic peptide.B prohormone N-Terminal [Mass/Vol] 35638 pg/mL High <[address] [facility] Comment on above: Heart Failure Unlike ly: < 300 pg/mLHeart Failure Likely< 50 Years: > 450 pg/mL50-75 Years: > 900 pg/mL>75 Years: > 1800 pg/mL Neutrophil percentageOrdered By: Parminder Jama on 03-22-2025 Neutrophils/100 WBC (Bld) 92.9 % High 47-[address] [facility] Nitrite Test strip Ql (U)Ord ered By: Parminder Jama on 03-22-2025 Nitrite Ql (U) Negative Negative [facility] Nucleated red blood cell per centageOrdered By: Parminder Jama on 03-22-2025 Nucleated RBC/100 WBC (Bld) [Ratio] 0 % 0-[address] [facility] Ovalocyte detectionOrdered B y: Parminder Jama on 03-22-2025 Ovalocytes LM Ql (Bld) 1+ [facility] Platelet countOrdered By: Mike Jama on 03-22-2025 Platelets (Bld) [#/Vol] 200 10*3/uL 150-[address] [facility] Platelet estimateOrdered By: Parminder Jama on 03-22-2025 Platelets LM Ql (Bld) ADEQUATE ADEQ [facility] Potassium measurement (mass/ volume)Ordered By: Parminder Jama on 03-22-2025 Potassium (Unsp spec) [Mass/Vol] 4.1 mmol/L 3.3-5.[address] [facility] Protein Test strip Ql (U)Ord ered By: Parminder Jama on 03-22-2025 Protein Ql (U) 500 mg/dl High Negative [facility] [facility] Prothrombin timeOrdered By: Parminder Jama on 03-22-2025 PT Coag (PPP) [Time] 22.0 s High 11.7-14.9 [facility] RBC Auto (Bld) [#/Vol]Ordere d By: Parminder Jama on 03-22-2025 RBC (Bld) [#/Vol] 4.11 10*6/uL Low 4.2-5.4 [facility] Serum creatinine measurement (mass/volume)Ordered By: Parminder Jama on 03-22-2025 Creatinine [Mass/Vol] 1.24 mg/dL High 0.70-1.20 [facility] Serum globulin measurementOr dered By: Parminder Jama on 03-22-2025 Globulin (S) [Mass/Vol] 3.9 g/dL 2.2-4.2 [facility] Serum glucose measurement (m ass/volume)Ordered By: Parminder Jama on 03-22-2025 Glucose [Mass/Vol] 120 mg/dL High 70-99 [facility] Serum or plasma alanine lozano otransferase (ALT) measurementOrdered By: Parminder Jama on 03-22-2025 ALT [Catalytic activity/Vol] 23 U/L <[address] [facility] Serum or plasma albumin marija urement (mass/volume)Ordered By: Parminder Jama on 03-22-2025 Albumin [Mass/Vol] 4.0 g/dL 3.4-4.8 [facility] Serum or plasma albumin/glob ulin mass ratioOrdered By: Parminder Jama on 03-22-2025 Albumin/Globulin [Mass ratio] 1.0 {ratio} 0.9-2.[address] [facility] Serum or plasma alkaline cecille sphatase measurementOrdered By: Parminder Jama on 03-22-2025 ALP [Catalytic activity/Vol] 108 U/L High 35-[address] [facility] Serum or plasma calcium marija urement (mass/volume)Ordered By: Parminder Jama on 03-22-2025 Calcium [Mass/Vol] 9.4 mg/dL 7.6-11.0 [facility] Serum or plasma urea nitroge n measurement (mass/volume)Ordered By: Parminder Jama on 03-22-2025 Urea nitrogen [Mass/Vol] 31 mg/dL High 4-[address] [facility] Sodium levelOrdered By: Johanne Jama on 03-22-2025 Sodium [Moles/Vol] 137 mmol/L 133-145 [facility] Squamous epithelial cells de tection in urine sediment by light microscopyOrdered By: Parminder Jama on 03-22-2025 Epithelial cells.squamous LM Ql (Urine sed) 5-10 SEEN /hpf 5-[address] [facility] Teardrop cell detectionOrder ed By: Parminder Jama on 03-22-2025 Dacrocytes LM Ql (Bld) RARE [facility] Total proteinOrdered By: Susan Jama on 03-22-2025 Protein [Mass/Vol] 7.9 g/dL 5.9-8.4 [facility] Transitional cells detection in urine sediment by light microscopyOrdered By: Parminder Jama on 03-22-2025 Transitional cells LM Ql (Urine sed) 0-5 SEEN /hpf 0-[address] [facility] Urine clarityOrdered By: Susan Jama on 03-22-2025 Clarity (U) Cloudy Clear [facility] Urine color determinationOrd ered By: Parminder Jama on 03-22-2025 Color (U) Kaya Yellow [facility] Urine glucose detectionOrder ed By: Parminder Jama on 03-22-2025 Glucose Ql (U) Normal mg/dl Normal [facility] Urine leukocyte esterase det ection by dipstickOrdered By: Parminder Jama on 03-22-2025 Leukocyte esterase Test strip Ql (U) 25 /ul High Negative [facility] Urine pHOrdered By: Parminder benitez on 03-22-2025 pH (U) 7.0 [pH] 5.0 - 8.[address] [facility] Urine sediment bacteria coun t by microscopy (number/high power field)Ordered By: Parminder Jama on 03-22-2025 Bacteria LM.HPF (Urine sed) [#/Area] 4 /[HPF] None Seen [facility] Urine specific gravity measu rementOrdered By: Parminder Jama on 03-22-2025 Specific gravity (U) [Rel density] 1.010 1.002-1.[address] [facility] Urine urobilinogen measureme ntOrdered By: Parminder Jama on 03-22-2025 Urobilinogen Ql (U) Normal mg/dl Normal [facility] White blood cell (WBC) count Ordered By: Parminder Jama on 03-22-2025 WBC (Bld) [#/Vol] 26.6 10*3/uL High 4.4-11.0 [facility] White blood cell countOrdere d By: Parminder Jama on 03-22-2025 White blood cell count 0-5 SEEN /hpf 0-[address] [facility] CNOVon 02-17-2025 CNOV Office Visit (INTMWS ) BARBARA ALLEN ([id number]) 1955 F Date Time Provider Department 02/17/25 10:20 AM RODRIGO JIMENEZ INTQueenieWS During your visit today, we recorded the following information about you: Temperature Pulse Respiration Blood pressure 97.9 degrees 85/minute 14/minute 128/64 Weight Height 110.7 kg 1.664 m Danny Sampson LPN 03/12/2025 1:30 AM Signed Last seen eye doctor x 1 year ago at [facility]- Last seen [facility] on 02/04/25 Rodrigo Jimenez MD 03/12/2025 1:30 AM Signed This note was created using SynGenriter. 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 She reports that [...] taking: Reported on 02/17/2025) blood sugar diagnostic (SmartioTOUCH ULTRA TEST) test strip Use as instructed [...] 3.90 - (more content not included)... Normal [facility] Cardiology Visit Reporton Cardiology Visit Report [facility] [address] [place], [place] [address] OFFICE VISIT Date of Service: 02/04/25 MR#: [id number] Acct: [id number] Name: BARBARA ALLEN Rep #: [id number] : 1955 Provider: Dr. Milton parkinson MD Age/Sex: 69/F Location: [facility] Status: Signed HPI HPI History of [...] triglycerides 79. These are managed through the [facility] and are checked routinely by the patient's report. She also has a history of hypertension which is well-controlled in the office today. She has a history of diabetes mellitus she does not remember her last hemoglobin A1c but it is managed through the [facility]. 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 Accompanied by: Self Is patient [...] you fallen in the past year?: No [facility] Medical History Type 2 diabetes mellitus Mixed hyperlipidemia Atherosclerotic heart disease of [place] coronary artery without angina pectoris Essential hypertension Pulmonary hypertension assoc with unclear multi-factorial mechanisms MORGAN (obstructive sleep apnea) CAD (coronary artery disease) Cardiomyopathy History of left heart catheterization (LHC) ( 01/27/21) Sleep apnea GERD (gastroesophageal reflux disease) Diabetes Surgical History History of tonsillectomy Family History Mother No history of heart disease Father No history of heart disease Social History ... Normal [facility] 25(OH)D3 [place] [facility] 2024 25-hydroxyvitamin D3 [Mass/Vol] 38.2 ng/mL Normal 31.0-80.0 [facility] Comment on above: Order Comment: Speci men Type: BLOOD SPECIMENOrdering Facility: [facility] Address: [address] [place] [address] [place] [address] Performed By: #### 1 989-3 ####[facility] LABCLIA [id number] [place] [address] [place] ALBUMIN/CREATININE RATIO, UR INEon 02-02-2025 Albumin DL <= 20 mg/L (U) [Mass/Vol] 940.2 mg/L Normal [facility] Comment on above: Order Comment: Speci men Type: URINE SPECIMENOrdering Facility: [facility] Address: [address] [place] [address] Performed By: #### U ACR ####[facility] LABCLIA [id number] [place] [address] [place] Albumin/Creatinine (U) [Mass ratio] 2362 mg/g High <30 [facility] Comment on above: Order Comment: Speci men Type: URINE SPECIMENOrdering Facility: [facility] Address: [address] [place] [address] Result Comment: Not calculated Adult Male and Female Nephrotic Criteria: <30 mg/g is considered normal to mildly increased 30-300 mg/g is considered moderately increased >300 mg/g is considered severely increased KDIGO. (2013). KDIGO 2012 Clinical Practice Guideline for the Evaluation and Management of Chronic Kidney Disease. Official Journal of the International Society of Nephrology, 3(1), 1-150. Performed By: #### U ACR ####[facility] LABCLIA [id number] [place] [address] [place] Creatinine (U) [Mass/Vol] 39.8 mg/dL Normal 20.0-300.0 [facility] Comment on above: Order Comment: Speci men Type: URINE SPECIMENOrdering Facility: [facility] Address: [address] [place] [address] Performed By: #### U ACR ####[facility] LABCLIA [id number] [place] [id number] [place] CBC W Auto Differential pane l (Bld)on 02-02-2025 Basophils (Bld) [#/Vol] 0.04 10*3/uL Normal <0.11 [facility] Comment on above: Order Comment: Speci men Type: BLOOD SPECIMENOrdering Facility: [facility] Address: [address] [place] [address] Performed By: #### 5 7021-8 ####[facility] MILLWNCLIA [id number] [place] [address] [place] Basophils/100 WBC (Bld) 0.5 % Normal C [facility] Comment on above: Order Comment: Speci men Type: BLOOD SPECIMENOrdering Facility: [facility] Address: [address] [place] [address] Performed By: #### 5 7021-8 ####[facility] [id number] [place] [address] [place] Differential cell count method Nom (Bld) Auto Normal [facility] Comment on above: Order Comment: Speci men Type: BLOOD SPECIMENOrdering Facility: [facility] Address: [address] [place] [address] Performed By: #### 5 7021-8 ####[facility] [id number] [place] [address] [place] Eosinophils (Bld) [#/Vol] 0.17 10*3/uL Normal <0.46 [facility] Comment on above: Order Comment: Speci men Type: BLOOD SPECIMENOrdering Facility: [facility] Address: [address] [place] [address] Performed By: #### 5 7021-8 ####[facility] [id number] [place] [address] [place] Eosinophils/100 WBC (Bld) 2.2 % Normal [facility] Comment on above: Order Comment: Speci men Type: BLOOD SPECIMENOrdering Facility: [facility] Address: [address] [place] [address] Performed By: #### 5 7021-8 ####[facility] HOS[facility]ITALNCLI [id number] [place] [address] [place] Erythrocyte distribution width (RBC) [Ratio] 14.4 % Normal 11.5-15.0 [facility] Comment on above: Order Comment: Speci men Type: BLOOD SPECIMENOrdering Facility: [facility] Address: [address] [place] [address] Performed By: #### 5 7021-8 ####[facility] [id number] [place] [address] [place] Hematocrit (Bld) [Volume fraction] 34.9 % Low 36.0-46.0 [facility] Comment on above: Order Comment: Speci men Type: BLOOD SPECIMENOrdering Facility: [facility] Address: [address] [place] [address] Performed By: #### 5 7021-8 ####[facility] [id number] [place] [address] [place] Hemoglobin (Bld) [Mass/Vol] 11.5 g/dL Normal 11.5-15.5 [facility] Comment on above: Order Comment: Speci men Type: BLOOD SPECIMENOrdering Facility: [facility] Address: [address] [place] [address] Performed By: #### 5 7021-8 ####[facility] [id number] [place] [address] [place] Immature granulocytes (Bld) [#/Vol] 0.03 10*3/uL Normal <0.10 [facility] Comment on above: Order Comment: Speci men Type: BLOOD SPECIMENOrdering Facility: [facility] Address: [address] [place] [address] Performed By: #### 5 7021-8 ####[facility] [id number] [place] [address] [place] Immature granulocytes/100 WBC (Bld) 0.4 % Normal [facility] Comment on above: Order Comment: Speci men Type: BLOOD SPECIMENOrdering Facility: [facility] Address: [address] [place] [address] Performed By: #### 5 7021-8 ####[facility] H[facility]ITALNACHOA [id number] [place] [address] [place] Lymphocytes (Bld) [#/Vol] 1.13 10*3/uL Normal 1.00-4.00 [facility] Comment on above: Order Comment: Speci men Type: BLOOD SPECIMENOrdering Facility: [facility] Address: [address] [place] [address] Performed By: #### 5 7021-8 ####[facility] [id number] [place] [address] [place] Lymphocytes/100 WBC (Bld) 14.8 % Normal [facility] Comment on above: Order Comment: Speci men Type: BLOOD SPECIMENOrdering Facility: [facility] Address: [address] [place] [address] Performed By: #### 5 7021-8 ####[facility] [id number] [place] [address] [place] MCH (RBC) [Entitic mass] 28.6 pg Normal 26.0-34.0 [facility] Comment on above: Order Comment: Speci men Type: BLOOD SPECIMENOrdering Facility: [facility] Address: [address] [place] [address] Performed By: #### 5 7021-8 ####[facility] H[facility]ITALNCLIA [id number] [place] [address] [place] MCHC (RBC) [Mass/Vol] 33.0 g/dL Normal 30.5-36.0 [facility] Comment on above: Order Comment: Speci men Type: BLOOD SPECIMENOrdering Facility: [facility] Address: [address] [place] [address] Performed By: #### 5 7021-8 ####[facility] BRUCEWNCLIA [id number] [place] [address] [place] MCV (RBC) [Entitic vol] 86.8 fL Normal 80.0-100.0 C [facility] Comment on above: Order Comment: Speci men Type: BLOOD SPECIMENOrdering Facility: [facility] Address: [address] [place] [address] Performed By: #### 5 7021-8 ####[facility] H[facility]ITALNCLIA [id number] [place] [address] [place] Monocytes (Bld) [#/Vol] 0.55 10*3/uL Normal <0.87 [facility] Comment on above: Order Comment: Speci men Type: BLOOD SPECIMENOrdering Facility: [facility] Address: [address] [place] [address] Performed By: #### 5 7021-8 ####[facility] CANTONLIA [id number] [place] [address] [place] Monocytes/100 WBC (Bld) 7.2 % Normal C [facility] Comment on above: Order Comment: Speci men Type: BLOOD SPECIMENOrdering Facility: [facility] Address: [address] [place] [address] Performed By: #### 5 7021-8 ####[facility] CANTONLIA [id number] [place] [address] [place] Neutrophils (Bld) [#/Vol] 5.73 10*3/uL Normal 1.45-7.50 [facility] Comment on above: Order Comment: Speci men Type: BLOOD SPECIMENOrdering Facility: [facility] Address: [address] [place] [address] Performed By: #### 5 7021-8 ####[facility]ITALNCLIA [id number] [place] [address] [place] Neutrophils/100 WBC (Bld) 74.9 % Normal [facility] Comment on above: Order Comment: Speci men Type: BLOOD SPECIMENOrdering Facility: [facility] Address: [address] [place] [address] Performed By: #### 5 7021-8 ####[facility]ITALNCP[facility] [id number] [place] [address] [place] Nucleated RBC (Bld) [#/Vol] 10*3/uL Normal <0.01 [facility] Comment on above: Order Comment: Speci men Type: BLOOD SPECIMENOrdering Facility: [facility] Address: [address] [place] [address] Performed By: #### 5 7021-8 ####[facility] [id number] [place] [address] [place] Nucleated RBC/100 WBC (Bld) [Ratio] 0.0 /100 WBC Normal [facility] Comment on above: Order Comment: Speci men Type: BLOOD SPECIMENOrdering Facility: [facility] Address: [address] [place] [address] Performed By: #### 5 7021-8 ####[facility]ITAL[facility] [id number] [place] [address] [place] Platelet mean volume (Bld) [Entitic vol] 10.5 fL Normal 9.0-12.7 [facility] Comment on above: Order Comment: Speci men Type: BLOOD SPECIMENOrdering Facility: [facility] Address: [address] [place] [address] Performed By: #### 5 7021-8 ####[facility] [id number] [place] [address] [place] Platelets (Bld) [#/Vol] 219 10*3/uL Normal 150-400 [facility] Comment on above: Order Comment: Speci men Type: BLOOD SPECIMENOrdering Facility: [facility] Address: [address] [place] [address] Performed By: #### 5 7021-8 ####[facility]ITALNCLIA [id number] [place] [address] [place] RBC (Bld) [#/Vol] 4.02 10*6/uL Normal 3.90-5.20 [facility] Comment on above: Order Comment: Speci men Type: BLOOD SPECIMENOrdering Facility: [facility] Address: [address] [place] [address] Performed By: #### 5 7021-8 ####[facility] H[facility]ITALNCLIA [id number] [place] [address] [place] WBC (Bld) [#/Vol] 7.65 10*3/uL Normal 3.70-11.00 [facility] Comment on above: Order Comment: Speci men Type: BLOOD SPECIMENOrdering Facility: [facility] Address: [address] [place] [address] Performed By: #### 5 7021-8 ####[facility]ITALNCLIA [id number] [place] [address] [place] Comprehensive metabolic 2000 panelon 02-02-2025 Albumin [Mass/Vol] 4.0 g/dL Normal 3.9-4.9 [facility] Comment on above: Order Comment: Speci men Type: BLOOD SPECIMENOrdering Facility: [facility] Address: [address] [place] [address] Performed By: #### 1 9123-9, 23164-1 ####[facility] H[facility]ITALNCLIA [id number] [place] [address] [place] ALP [Catalytic activity/Vol] 135 U/L High 34-123 [facility] Comment on above: Order Comment: Speci men Type: BLOOD SPECIMENOrdering Facility: [facility] Address: [address] [place] [address] Performed By: #### 1 9123-9, 53959-9 ####[facility] MILLWRAOULLIA [id number] [address] [facility] ALT [Catalytic activity/Vol] 10 U/L Normal 7-38 [facility] Comment on above: Order Comment: Speci men Type: BLOOD SPECIMENOrdering Facility: [facility] Address: [address] [place] [address] Performed By: #### 1 9123-9, 80350-9 ####[facility] BRUCEWNCLIA [id number] [place] [address] [place] Anion gap [Moles/Vol] 13 mmol/L Normal 8-15 [facility] Comment on above: Order Comment: Speci men Type: BLOOD SPECIMENOrdering Facility: [facility] Address: [address] [place] [address] Performed By: #### 1 9123-9, 64809-1 ####[facility]ONLIA [id number] [address] [place] AST [Catalytic activity/Vol] 11 U/L Low 13-35 [facility] Comment on above: Order Comment: Speci men Type: BLOOD SPECIMENOrdering Facility: [facility] Address: [address] [place] [address] Performed By: #### 1 9123-9, 05701-1 ####[facility]ONLIA [id number] [place] [address] [place] Bilirubin [Mass/Vol] 0.5 mg/dL Normal 0.2-1.3 [facility] Comment on above: Order Comment: Speci men Type: BLOOD SPECIMENOrdering Facility: [facility] Address: [address] [place] [address] Performed By: #### 1 9123-9, 20559-5 ####[facility] MILLTOWNCLIA [id number] [place] [address] [place] Calcium [Mass/Vol] 9.5 mg/dL Normal 8.5-10.2 [facility] Comment on above: Order Comment: Speci men Type: BLOOD SPECIMENOrdering Facility: [facility] Address: [address] [place] [address] Performed By: #### 1 9123-9, 26601-5 ####[facility] MILLTOWNCLIA [id number] [place] [address] [place] Chloride [Moles/Vol] 107 mmol/L Normal 98-107 [facility] Comment on above: Order Comment: Speci men Type: BLOOD SPECIMENOrdering Facility: [facility] Address: [address] [place] [address] Performed By: #### 1 9123-9, 61068-4 ####[facility] MILLWNCLIA [id number] [place] [address] [place] CO2 [Moles/Vol] 20 mmol/L Low 22-30 [facility] Comment on above: Order Comment: Speci men Type: BLOOD SPECIMENOrdering Facility: [facility] Address: [address] [place] [address] Performed By: #### 1 9123-9, 35151-0 ####[facility] MILLTOWNCLIA [id number] [place] [address] [place] Creatinine [Mass/Vol] 0.88 mg/dL Normal 0.58-0.96 [facility] Comment on above: Order Comment: Speci men Type: BLOOD SPECIMENOrdering Facility: [facility] Address: [address] [place] [address] Performed By: #### 1 9123-9, 00816-9 ####[facility] MILLWNCLIA [id number] [place] [address] [place] Creatinine and Glomerular filtration rate.predicted panel (S/P/Bld) 70 mL/min/1.73m??? Normal >=60 [facility] Comment on above: Order Comment: Heber bruce Type: BLOOD SPECIMENOrdering Facility: [facility] Address: [address] [place] [address] Result Comment: [place] mated Glomerular Filtration Rate [...] actual GFR. Performed By: #### 1 9123-9, 07254-0 ####[facility] [id number] [place] [address] [place] Glucose [Mass/Vol] 110 mg/dL High 74-99 [facility] Comment on above: Order Comment: Heber bruce Type: BLOOD SPECIMENOrdering Facility: [facility] Address: [address] [place] [address] Result Comment: The [place] Diabetes Association (ADA) provides guidance for cutoff [...] Standards of Medical Care in Diabetes 2016, [place] [employer]. Diabetes Care. 2016.39(Suppl 1). Performed By: #### 1 9123-9, 60430-5 ####[facility] [id number] [place] [address] [place] Potassium [Moles/Vol] 4.5 mmol/L Normal 3.7-5.1 [facility] Comment on above: Order Comment: Speci men Type: BLOOD SPECIMENOrdering Facility: [facility] Address: [address] [place], [place] [address] Performed By: #### 1 9123-9, 71102-5 ####[facility] HOSPITALNCJAVI [id number] [place] [address] [place] Protein [Mass/Vol] 7.4 g/dL Normal 6.3-8.0 [facility] Comment on above: Order Comment: Speci men Type: BLOOD SPECIMENOrdering Facility: [facility] Address: [address] [place] [address] Performed By: #### 1 9123-9, 36790-2 ####[facility]ITALELIZABETH [id number] [place] [address] [place] Sodium [Moles/Vol] 140 mmol/L Normal 136-144 [facility] Comment on above: Order Comment: Speci men Type: BLOOD SPECIMENOrdering Facility: [facility] Address: [address] [place] [address] Performed By: #### 1 9123-9, ####[facility] HOSPITALNACHOA [id number] [place] [address] [place] Urea nitrogen [Mass/Vol] 24 mg/dL High 7-21 [facility] Comment on above: Order Comment: Speci men Type: BLOOD SPECIMENOrdering Facility: [facility] Address: [address] [place] [address] Performed By: #### 1 9123-9, 30335-0 ####[facility] HOSPITALNCLIA [id number] [place] [address] [place] HbA1c (Bld)on 02-02-2025 Average glucose Estimated from glycated hemoglobin (Bld) [Mass/Vol] 189 mg/dL Normal [facility] Comment on above: Order Comment: Heber bruce Type: BLOOD SPECIMENOrdering Facility: [facility] Address: [address] [place] [address] Result Comment: eAG: (Estimated average glucose) is a calculated value from HgbA1c and is customer operations representative of the average blood glucose level in the last 2-3 month period. Performed By: #### 5 5454-3 ####[facility] LABCLIA [id number] [address] STATES [place] HbA1c (Bld) [Mass fraction] 8.2 % High 4.3-5.6 [facility] Comment on above: Order Comment: Heber bruce Type: BLOOD SPECIMENOrdering Facility: [facility] Address: [address] [place] [address] Result Comment: Amer ican Diabetes Association guidelines indicate that patients with HgbA1c in the range 5.7-6.4% are at increased risk for development of diabetes, and intervention by lifestyle modification may be beneficial. HgbA1c greater or equal to 6.5% is considered diagnostic of diabetes. Performed By: #### 5 5454-3 ####[facility] LABCLIA [id number] [address] STATES OF [facility] Lipid 1996 panelon 5 Cholesterol [Mass/Vol] 137 mg/dL Normal <200 [facility] Comment on above: Order Comment: Heber bruce Type: BLOOD SPECIMENOrdering Facility: [facility] Address: [address] [place] [address] Result Comment: <200 mg/dL, Desirable 200-239 mg/dL, Borderline high >239 mg/dL, High Performed By: #### 2 4331-1 ####[facility] LABCLIA [id number] [place] [address] [place] [facility] [id number] [place] [address] [place]#### 3016-3 ####[facility] LABCLIA [id number] [address] [place] Cholesterol in HDL [Mass/Vol] 48 mg/dL Normal >39 [facility] Comment on above: Order Comment: Speci men Type: BLOOD SPECIMENOrdering Facility: [facility] Address: [address] [place] [address] Result Comment: 40-5 9 mg/dL, Acceptable >59 mg/dL, High: Negative risk factor for coronary heart disease <40 mg/dL, Low: Positive risk factor for coronary heart disease Performed By: #### 2 4331-1 ####[facility] LABCLIA [id number] [address] STATES OF [facility] [id number] [place] [address] [place]#### 3016-3 ####[facility] LABCLIA [id number] [address] [place] Cholesterol in LDL [Mass/Vol] 74 mg/dL Normal <100 [facility] Comment on above: Order Comment: Speci men Type: BLOOD SPECIMENOrdering Facility: [facility] Address: [address] [place] [address] Result Comment: <100 mg/dL, Optimal 100-129 mg/dL, Near optimal/above optimal 130-159 mg/dL, Borderline high 160-189 mg/dL, High >189 mg/dL, Very high Secondary prevention optimal LDL Cholesterol levels are recommended to be <70 mg/dL LDL cholesterol is calculated using the Rodriges-NIH equation. Performed By: #### 2 4331-1 ####[facility] LABCLIA [id number] [place] [id number] [place] OF [facility] [id number] [address] STATES [place]#### 3016-3 ####[facility] LABCLIA [id number] [address] [place] [address] [facility] Cholesterol in LDL/Cholesterol in HDL [Mass ratio] 1.54 {ratio} Normal <2.54 [facility] Comment on above: Order Comment: Speci men Type: BLOOD SPECIMENOrdering Facility: [facility] Address: [address] [place] [address] Result Comment: Ben salmeron: 1. National Cholesterol Education Program ATP III Guideline At-A-Glance Quick Desk Reference: National Heart, Lung, and Blood [place]. National Institutes of Health. 2001: NIH Publication No. 01-3305. 2. An International Atherosclerosis Society position paper: global recommendations for the management of dyslipidemia: executive summary, Atherosclerosis. 2014: 232(2):410-413. Performed By: #### 2 4331-1 ####[facility] LABCLIA [id number] [place] [id number] [place] [facility] [id number] [place] [address] [place]#### 3016-3 ####[facility] LABCLIA [id number] [address] [place] [address] [place] Cholesterol in VLDL [Mass/Vol] 11 mg/dL Normal <30 [facility] Comment on above: Order Comment: Speci men Type: BLOOD SPECIMENOrdering Facility: [facility] Address: [address] [place] [address] Performed By: #### 2 4331-1 ####[facility] LABCLIA [id number] [facility] [address] [place] [address] [place] [facility] [id number] [place] [address] [place]#### 3016-3 ####[facility] LABCLIA [id number] [address] [place] [address] [facility] OF [place] Cholesterol non HDL [Mass/Vol] 89 mg/dL Normal <130 [facility] Comment on above: Order Comment: Speci men Type: BLOOD SPECIMENOrdering Facility: [facility] Address: [address] [place] [address] Result Comment: <130 mg/dL, Optimal 130-159 mg/dL, Near optimal/above optimal 160-189 mg/dL, Borderline high 190-219 mg/dL, High >219 mg/dL, Very high Secondary prevention optimal non HDL Cholesterol levels are recommended to be <100 mg/dL Performed By: #### 2 4331-1 ####[facility] LABCLIA [id number] [address] STATES [facility] [id number] [place] [address] [place]#### 3016-3 ####[facility] LABCLIA [id number] [place] [address] [place] Cholesterol.total/Marcy sterol in HDL [Mass ratio] 2.85 {ratio} Normal <5.10 [facility] Comment on above: Order Comment: Speci men Type: BLOOD SPECIMENOrdering Facility: [facility] Address: [address] [place] [address] Performed By: #### 2 4331-1 ####[facility] LABCLIA [id number] [address] STATES [facility] [id number] [place] [address] [place]#### 3016-3 ####[facility] LABCLIA [id number] [place] [id number] [place] FASTING TIME 12 hrs Normal [facility] Comment on above: Order Comment: Speci men Type: BLOOD SPECIMENOrdering Facility: [facility] Address: [address] [place] [address] Performed By: #### 2 4331-1 ####[facility] LABCLIA [id number] [place] [id number] [place] [facility] [id number] [place] [address] [place]#### 3016-3 ####[facility] LABCLIA [id number] [place] [address] [place] Triglyceride [Mass/Vol] 73 mg/dL Normal <150 [facility] Comment on above: Order Comment: Speci men Type: BLOOD SPECIMENOrdering Facility: [facility] Address: [address] [place] [address] Result Comment: <150 mg/dL, Normal 150-199 mg/dL, Borderline high 200-499 mg/dL, High >499 mg/dL, Very high Performed By: #### 2 4331-1 ####[facility] LABCLIA [id number] [place] [address] [place] [facility] [id number] [place] [address] [place]#### 3016-3 ####[facility] LABCLIA [id number] [place] [address] [place] Magnesium SerPl-mCncon 02-02 Magnesium [Mass/Vol] 1.6 mg/dL Low 1.7-2.3 [facility] Comment on above: Order Comment: Speci men Type: BLOOD SPECIMENOrdering Facility: [facility] Address: [address] [place] [address] Performed By: #### 1 9123-9, 95641-8 ####[facility] [id number] [place] [address] [place] TSH SerPl-aCncon 02-02-2025 TSH Qn 6.410 m[IU]/L High 0.270-4.200 [facility] Comment on above: Order Comment: Speci men Type: BLOOD SPECIMENOrdering Facility: [facility] Address: [address] [place] [address] Performed By: #### 2 4331-1 ####[facility] LABCLIA [id number] [address] OF [facility] [id number] [address] OF [facility]#### 3016-3 ####[facility] LABCLIA [id number] [address] OF [facility] CNOVon 08-03-2024 CNOV Office Visit (INTMWS ) BARBARA ALLEN ([id number]) 1955 F Date Time Provider Department 08/03/24 2:00 PM JILLIAN MOJICA INTMWS During your visit today, we recorded the following information about you: Pulse Respiration Blood pressure Weight 65/minute 16/minute 114/61 111.6 kg Jillian Mojica, BRAYAN.REGISTERED PHLEBOTOMIST PART TIME 08/03/2024 2:46 PM Signed SUBJECTIVE: Shingrix Vaccine(1 of 2) Never done RSV Vaccine(1 - Risk 60-74 years 1-dose series) Never done Mammogram Screening due on 07/27/2016 Bone Density Screening due on 2018 DTaP,Tdap,Td Vaccine(2 - Td or Tdap) due on 07/13/2020 Colorectal Cancer Screening due on 06/26/2022 Diabetic Foot Exam due on 08/14/2023 Influenza Vaccine(1) due on 05/03/2024 [facility] Barbara Allen is a 69 year old [...] visual symptoms, low sugar/hypoglycemic reactions, weight loss/gain, lightheadedness/dizzine ss, and bowel changes/loose stools.Patient's last HgA1C was Hemoglobin A1C (%) Date Value 07/22/2024 8.9 01/24/2024 8.9 06/26/2021 6.9 12/16/2020 10.3 ) Declines foot exam today. States no numbness or tingling no sores or open skin on her feet. [facility]. Defers [...] potassium chloride (more content not included)... Normal [facility] 25(OH)D3 [facility] 2023 25-hydroxyvitamin D3 [Mass/Vol] 37.0 ng/mL Normal 31.0-80.0 [facility] Comment on above: Order Comment: Speci men Type: BLOOD SPECIMENOrdering Facility: [facility] Address: [address] [place] [address] Performed By: #### 1 989-3 ####[facility] LABCLIA [id number] [place] [address] [place] ALBUMIN/CREATININE RATIO, UR [facility] 07-22-2024 Albumin DL <= 20 mg/L (U) [Mass/Vol] 1218.1 mg/L Normal [facility] Comment on above: Order Comment: Speci men Type: URINE SPECIMENOrdering Facility: [facility] Address: [address] [place] [address] Performed By: #### U ACR ####[facility] LABCLIA [id number] [place] [address] [place] Albumin/Creatinine (U) [Mass ratio] 2654 mg/g High <30 [facility] Comment on above: Order Comment: Speci men Type: URINE SPECIMENOrdering Facility: [facility] Address: [address] [place] [address] Result Comment: Adul t Male and Female Nephrotic Criteria: <30 mg/g is considered normal to mildly increased 30-300 mg/g is considered moderately increased >300 mg/g is considered severely increased KDIGO. (2013). KDIGO 2012 Clinical Practice Guideline for the Evaluation and Management of Chronic Kidney Disease. Official Journal of the International Society of Nephrology, 3(1), 1-150. Performed By: #### U ACR ####[facility] LABCLIA [id number] [place] [address] [place] Creatinine (U) [Mass/Vol] 45.9 mg/dL Normal 20.0-300.0 [facility] Comment on above: Order Comment: Speci men Type: URINE SPECIMENOrdering Facility: [facility] Address: [address] [place] [address] Performed By: #### U ACR ####[facility] LABCLIA [id number] [facility] [place] [address] [place] CBC panel Auto (Bld)on 07-22 Erythrocyte distribution width (RBC) [Ratio] 13.3 % Normal 11.5-15.0 [facility] Comment on above: Order Comment: Speci men Type: BLOOD SPECIMENOrdering Facility: [facility] Address: [address] [place] [address] Performed By: #### 5 8410-2 ####[facility] [id number] [address] [place] Hematocrit (Bld) [Volume fraction] 36.9 % Normal 36.0-46.0 [facility] Comment on above: Order Comment: Speci men Type: BLOOD SPECIMENOrdering Facility: [facility] Address: [address] [place] [address] Performed By: #### 5 8410-2 ####[facility] [id number] [place] [address] [place] Hemoglobin (Bld) [Mass/Vol] 12.1 g/dL Normal 11.5-15.5 [facility] Comment on above: Order Comment: Speci men Type: BLOOD SPECIMENOrdering Facility: [facility] Address: [address] [place] [address] Performed By: #### 5 8410-2 ####[facility] HOS[facility]ITALNCLI [id number] [place] [address] [place] MCH (RBC) [Entitic mass] 28.4 pg Normal 26.0-34.0 [facility] Comment on above: Order Comment: Speci men Type: BLOOD SPECIMENOrdering Facility: [facility] Address: [address] [place] [address] Performed By: #### 5 8410-2 ####[facility] TAMMINCJAVI [id number] [place] [address] [place] MCHC (RBC) [Mass/Vol] 32.8 g/dL Normal 30.5-36.0 [facility] Comment on above: Order Comment: Speci men Type: BLOOD SPECIMENOrdering Facility: [facility] Address: [address] [place] [address] Performed By: #### 5 8410-2 ####[facility] HOSPITALNCPRATIMANunu [id number] [place] [address] [place] MCV (RBC) [Entitic vol] 86.6 fL Normal 80.0-100.0 [facility] Comment on above: Order Comment: Speci men Type: BLOOD SPECIMENOrdering Facility: [facility] Address: [address] [place] [address] Performed By: #### 5 8410-2 ####[facility] HOSPITALNCA [id number] [place] [address] [place] Nucleated RBC (Bld) [#/Vol] 10*3/uL Normal <0.01 [facility] Comment on above: Order Comment: Speci men Type: BLOOD SPECIMENOrdering Facility: [facility] Address: [address] [place], [place] [address] Performed By: #### 5 8410-2 ####[facility] H[facility]ITALNCLIA [id number] [place] [address] [place] Platelet mean volume (Bld) [Entitic vol] 10.0 fL Normal 9.0-12.7 [facility] Comment on above: Order Comment: Speci men Type: BLOOD SPECIMENOrdering Facility: [facility] Address: [address] [place], [place] [address] Performed By: #### 5 8410-2 ####[facility] TAMMINCLIA [id number] [place] [address] [place] Platelets (Bld) [#/Vol] 209 10*3/uL Normal 150-400 [facility] Comment on above: Order Comment: Speci men Type: BLOOD SPECIMENOrdering Facility: [facility] Address: [address] [place], [place] [address] Performed By: #### 5 8410-2 ####[facility] BRUCENOLANNCLIA [id number] [place] [address] [facility] RBC (Bld) [#/Vol] 4.26 10*6/uL Normal 3.90-5.20 [facility] Comment on above: Order Comment: Speci men Type: BLOOD SPECIMENOrdering Facility: [facility] Address: [address] [place] [address] Performed By: #### 5 8410-2 ####[facility] HOSPITALNCA [id number] [place] [address] [place] WBC (Bld) [#/Vol] 7.45 10*3/uL Normal 3.70-11.00 [facility] Comment on above: Order Comment: Speci men Type: BLOOD SPECIMENOrdering Facility: [facility] Address: [address] [place], [place] [address] Performed By: #### 5 8410-2 ####[facility]ITALNCLIA [id number] [place] [address] [facility] OF [place] Comprehensive metabolic 2000 panelon 07-22-2024 Albumin [Mass/Vol] 4.1 g/dL Normal 3.9-4.9 [facility] Comment on above: Order Comment: Speci men Type: BLOOD SPECIMENOrdering Facility: [facility] Address: [address] [place] [address] Performed By: #### 2 4323-8, ####[facility] MARBELLA MILLTOWNCLIA [id number] [place] [address] [place] ALP [Catalytic activity/Vol] 122 U/L Normal 34-123 [facility] Comment on above: Order Comment: Speci men Type: BLOOD SPECIMENOrdering Facility: [facility] Address: [address] [place] [address] Performed By: #### 2 4323-8, ####[facility] MILLTOWNCLIA [id number] [place] [address] [place] ALT [Catalytic activity/Vol] 8 U/L Normal 7-38 [facility] Comment on above: Order Comment: Speci men Type: BLOOD SPECIMENOrdering Facility: [facility] Address: [address] [place] [address] Performed By: #### 2 4323-8, ####[facility] CANTONLIA [id number] [place] [address] [place] Anion gap [Moles/Vol] 14 mmol/L Normal 8-15 [facility] Comment on above: Order Comment: Speci men Type: BLOOD SPECIMENOrdering Facility: [facility] Address: [address] [place] [address] Performed By: #### 2 4323-8, ####[facility] MILLWNCLIA [id number] [place] [address] [place] AST [Catalytic activity/Vol] 11 U/L Low 13-35 [facility] Comment on above: Order Comment: Speci men Type: BLOOD SPECIMENOrdering Facility: [facility] Address: [address] [place] [address] Performed By: #### 2 4323-8, ####[facility]ENTERWNCLIA [id number] [place] [id number] [place] Bilirubin [Mass/Vol] 0.5 mg/dL Normal 0.2-1.3 [facility] Comment on above: Order Comment: Speci men Type: BLOOD SPECIMENOrdering Facility: [facility] Address: [address] [place] [address] Performed By: #### 2 4323-8, 09421-1 ####[facility] MILLTOWRAOULLIA [id number] [place] [address] [place] Calcium [Mass/Vol] 9.6 mg/dL Normal 8.5-10.2 [facility] Comment on above: Order Comment: Speci men Type: BLOOD SPECIMENOrdering Facility: [facility] Address: [address] [place] [address] Performed By: #### 2 4323-8, 01511-1 ####[facility]ENTERWRAOULLIA [id number] [place] [address] [place] Chloride [Moles/Vol] 104 mmol/L Normal 98-107 [facility] Comment on above: Order Comment: Speci men Type: BLOOD SPECIMENOrdering Facility: [facility] Address: [address] [place] [address] Performed By: #### 2 4323-8, ####[facility] CENTERWELIZABETH [id number] [place] [address] [place] CO2 [Moles/Vol] 21 mmol/L Low 22-30 [facility] Comment on above: Order Comment: Speci men Type: BLOOD SPECIMENOrdering Facility: [facility] Address: [address] [place] [address] Performed By: #### 2 4323-8, ####[facility] MILLTOWNCLIA [id number] [place] [address] [place] Creatinine [Mass/Vol] 0.84 mg/dL Normal 0.58-0.96 [facility] Comment on above: Order Comment: Heber bruce Type: BLOOD SPECIMENOrdering Facility: [facility] Address: [address] [place] [address] Performed By: #### 2 4323-8, ####[facility] [id number] [place] [address] [place] Creatinine and Glomerular filtration rate.predicted panel (S/P/Bld) 74 mL/min/1.73m??? Normal >=60 [facility] Comment on above: Order Comment: Heber bruce Type: BLOOD SPECIMENOrdering Facility: [facility] Address: [address] [place] [address] Result Comment: [place] mated Glomerular Filtration Rate [...] actual GFR. Performed By: #### 2 4323-8, ####[facility] [id number] [place] [address] [place] Glucose [Mass/Vol] 79 mg/dL Normal 74-99 [facility] Comment on above: Order Comment: Heber bruce Type: BLOOD SPECIMENOrdering Facility: [facility] Address: [address] [place] [address] Result Comment: The [place] Diabetes Association (ADA) provides guidance for cutoff [...] Standards of Medical Care in Diabetes 2016, [place] Diabetes Association. Diabetes Care. 2016.39(Suppl 1). Performed By: #### 2 4323-8, ####[facility] MAR[facility]LLA BRUCECAINWNCLIA [id number] [place] [address] [place] Potassium [Moles/Vol] 3.9 mmol/L Normal 3.7-5.1 [facility] Comment on above: Order Comment: Speci men Type: BLOOD SPECIMENOrdering Facility: [facility] Address: [address] [place] [address] Performed By: #### 2 4323-8, ####[facility] HOSPITALNCPRATIMAA [id number] [place] [address] [place] Protein [Mass/Vol] 7.5 g/dL Normal 6.3-8.0 [facility] Comment on above: Order Comment: Speci men Type: BLOOD SPECIMENOrdering Facility: [facility] Address: [address] [place] [address] Performed By: #### 2 4323-8, ####[facility] HOSPITALNCPRATIMAA [id number] [place] [address] [place] Sodium [Moles/Vol] 139 mmol/L Normal 136-144 [facility] Comment on above: Order Comment: Speci men Type: BLOOD SPECIMENOrdering Facility: [facility] Address: [address] [place] [address] Performed By: #### 2 4323-8, ####[facility] HOSPITALNCLIA [id number] [place] [address] [place] Urea nitrogen [Mass/Vol] 23 mg/dL High 7-21 [facility] Comment on above: Order Comment: Speci men Type: BLOOD SPECIMENOrdering Facility: [facility] Address: [address] [place] [address] Performed By: #### 2 4323-8, 76408-7 ####[facility] [id number] [place] [address] [place] HbA1c (Bld)on 07-22-2024 Average glucose Estimated from glycated hemoglobin (Bld) [Mass/Vol] 209 mg/dL Normal [facility] Comment on above: Order Comment: Speci men Type: BLOOD SPECIMENOrdering Facility: [facility] Address: [address] [place] [address] Result Comment: eAG: (Estimated average glucose) is a calculated value from HgbA1c and is customer operations representative of the average blood glucose level in the last 2-3 month period. Performed By: #### 5 5454-3 ####[facility] [id number] [place] [address] [place] HbA1c (Bld) [Mass fraction] 8.9 % High 4.3-5.6 [facility] Comment on above: Order Comment: Heber bruce Type: BLOOD SPECIMENOrdering Facility: [facility] Address: [address] [place] [address] Result Comment: Amer ican Diabetes Association guidelines indicate that patients with HgbA1c in the range 5.7-6.4% are at increased risk for development of diabetes, and intervention by lifestyle modification may be beneficial. HgbA1c greater or equal to 6.5% is considered diagnostic of diabetes. Performed By: #### 5 5454-3 ####[facility]CLIA [id number] [place] [address] [place] Lipid 1996 panelon 4 Cholesterol [Mass/Vol] 160 mg/dL Normal <200 [facility] Comment on above: Order Comment: Heber bruce Type: BLOOD SPECIMENOrdering Facility: [facility] Address: [address] [place] [address] Result Comment: <200 mg/dL, Desirable 200-239 mg/dL, Borderline high >239 mg/dL, High Performed By: #### 3 016-3 ####[facility]CL[facility] [id number] [place] [address] [place]#### 99150-2 ####[facility]CL[facility] [id number] [address] [id number] [address] Cholesterol in HDL [Mass/Vol] 53 mg/dL Normal >39 [facility] Comment on above: Order Comment: Speci men Type: BLOOD SPECIMENOrdering Facility: [facility] Address: [address] [place] [address] Result Comment: 40-5 9 mg/dL, Acceptable >59 mg/dL, High: Negative risk factor for coronary heart disease <40 mg/dL, Low: Positive risk factor for coronary heart disease Performed By: #### 3 016-3 ####[facility]CL[facility] [id number] [place] [address] [place]#### 97120-2 ####[facility]CL[facility] [id number] [address] STATES [facility] [id number] [address] [place] Cholesterol in LDL [Mass/Vol] 89 mg/dL Normal <100 [facility] Comment on above: Order Comment: Speci men Type: BLOOD SPECIMENOrdering Facility: [facility] Address: [address] [place] [address] Result Comment: <100 mg/dL, Optimal 100-129 mg/dL, Near optimal/above optimal 130-159 mg/dL, Borderline high 160-189 mg/dL, High >189 mg/dL, Very high Secondary prevention optimal LDL Cholesterol levels are recommended to be < 70 mg/dL Performed By: #### 3 016-3 ####[facility]CL[facility] [id number] [address] [place]#### 71824-4 ####[facility] [id number] [address] [id number] [place] [address] [place] Cholesterol in LDL/Cholesterol in HDL [Mass ratio] 1.68 {ratio} Normal <2.54 [facility] Comment on above: Order Comment: Speci men Type: BLOOD SPECIMENOrdering Facility: [facility] Address: [address] [place] [address] Result Comment: Ben salmeron: 1. National Cholesterol Education Program ATP III Guideline At-A-Glance Quick Desk Reference: National Heart, Lung, and Blood [place]. National Institutes of Health. 2001: NIH Publication No. 01-3305. 2. An International Atherosclerosis Society position paper: global recommendations for the management of dyslipidemia: executive summary, Atherosclerosis. 2014: 232(2):410-413. Performed By: #### 3 016-3 ####[facility]CL[facility] [id number] [place] [address] [place]#### 34259-8 ####[facility]CL[facility] [id number] [address] [id number] [place] [address] [place] Cholesterol in VLDL [Mass/Vol] 18 mg/dL Normal <30 [facility] Comment on above: Order Comment: Speci men Type: BLOOD SPECIMENOrdering Facility: [facility] Address: [address] [place] [address] Performed By: #### 3 016-3 ####[facility]CL[facility] [id number] [place] [address] [place]#### 05517-1 ####[facility] [id number] [address] [id number] [place] [address] [place] Cholesterol non HDL [Mass/Vol] 107 mg/dL Normal <130 [facility] Comment on above: Order Comment: Speci men Type: BLOOD SPECIMENOrdering Facility: [facility] Address: [address] [place] [address] Result Comment: <130 mg/dL, Optimal 130-159 mg/dL, Near optimal/above optimal 160-189 mg/dL, Borderline high 190-219 mg/dL, High >219 mg/dL, Very high Secondary prevention optimal non HDL Cholesterol levels are recommended to be <100 mg/dL Performed By: #### 3 016-3 ####[facility] [id number] [place] [address] [place]#### 37261-9 ####[facility] [id number] [address] [id number] [place] [address] [place] Cholesterol.total/Marcy sterol in HDL [Mass ratio] 3.02 {ratio} Normal <5.10 [facility] Comment on above: Order Comment: Speci men Type: BLOOD SPECIMENOrdering Facility: [facility] Address: [address] [place] [address] Performed By: #### 3 016-3 ####[facility]CL[facility] [id number] [place] [address] [place]#### 24165-8 ####[facility]CL[facility] [id number] [address] STATES OF [facility] [id number] [place] [address] [place] FASTING TIME 12 hrs Normal [facility] Comment on above: Order Comment: Speci men Type: BLOOD SPECIMENOrdering Facility: [facility] Address: [address] [place] [address] Performed By: #### 3 016-3 ####[facility]CL[facility] [id number] [place] [address] [place]#### 39285-6 ####[facility]CL[facility] [id number] [place] [address] [place] [facility] [id number] [place] [address] [place] Triglyceride [Mass/Vol] 89 mg/dL Normal <150 [facility] Comment on above: Order Comment: Speci men Type: BLOOD SPECIMENOrdering Facility: [facility] Address: [address] [place] [address] Result Comment: <150 mg/dL, Normal 150-199 mg/dL, Borderline high 200-499 mg/dL, High >499 mg/dL, Very high Performed By: #### 3 016-3 ####[facility]CL[facility] [id number] [place] [address] [place]#### 32566-7 ####[facility]CL[facility] [id number] [address] STATES OF [facility] [id number] [place] [address] [place] Magnesium [facility] Magnesium [Mass/Vol] 1.7 mg/dL Normal 1.7-2.3 [facility] Comment on above: Order Comment: Speci men Type: BLOOD SPECIMENOrdering Facility: [facility] Address: [address] [place] [address] Performed By: #### 2 4323-8, 88931-5 ####[facility] [id number] [place] [address] [place] TSH SerPl-aCncon 07-22-2024 TSH Qn 8.150 m[IU]/L High 0.270-4.200 [facility] Comment on above: Order Comment: Speci men Type: BLOOD SPECIMENOrdering Facility: [facility] Address: [address] [place] [address] Performed By: #### 3 016-3 ####[facility]CL[facility] [id number] [place] [address] [place]#### 61740-6 ####[facility]CL[facility] [id number] [place] [address] [place] [facility] [id number] [place] [address] [place] Urinalysis complete panel (U )on 07-22-2024 BACTERIA UL >9821 High Negative [facility] Comment on above: Order Comment: Speci men Type: URINE SPECIMENOrdering Facility: [facility] Address: [address] [place] [address] Performed By: #### 2 4356-8 ####[facility]CL[facility] [id number] [place] [address] [place] Bilirubin Ql (U) Negative Normal Negative [facility] Comment on above: Order Comment: Speci men Type: URINE SPECIMENOrdering Facility: [facility] Address: [address] [place] [address] Performed By: #### 2 4356-8 ####[facility]CL[facility] [id number] [place] [address] [place] Clarity (Unsp spec) Cloudy Abnormal Clear [facility] Comment on above: Order Comment: Speci men Type: URINE SPECIMENOrdering Facility: [facility] Address: [address] [place] [address] Performed By: #### 2 4356-8 ####[facility]CL[facility] [id number] [place] [address] [place] Color (U) Yellow Normal Yellow [facility] Comment on above: Order Comment: Speci men Type: URINE SPECIMENOrdering Facility: [facility] Address: [address] [place] [address] Performed By: #### 2 4356-8 ####[facility]CL[facility] [id number] [place] [address] [place] Epithelial cells LM.HPF (Urine sed) [#/Area] Few Normal [facility] Comment on above: Order Comment: Speci men Type: URINE SPECIMENOrdering Facility: [facility] Address: [address] [place] [address] Performed By: #### 2 4356-8 ####[facility]CL[facility] [id number] [place] [address] [place] Glucose Test strip (U) [Mass/Vol] Negative Normal Negative [facility] Comment on above: Order Comment: Speci men Type: URINE SPECIMENOrdering Facility: [facility] Address: [address] [place] [address] Performed By: #### 2 4356-8 ####[facility]CL[facility] [id number] [place] [address] [place] Hemoglobin Ql (U) 1+ Abnormal Negative [facility] Comment on above: Order Comment: Speci men Type: URINE SPECIMENOrdering Facility: [facility] Address: [address] [place] [address] Performed By: #### 2 4356-8 ####[facility]CL[facility] [id number] [place] [address] [place] Hyaline casts (Urine sed) [#/Area] 1-3 /LPF Abnormal 0 /LPF [facility] Comment on above: Order Comment: Speci men Type: URINE SPECIMENOrdering Facility: [facility] Address: [address] [place] [address] Performed By: #### 2 4356-8 ####[facility]CL[facility] [id number] [place] [address] [place] Ketones Ql (U) Negative Normal Negative [facility] Comment on above: Order Comment: Speci men Type: URINE SPECIMENOrdering Facility: [facility] Address: [address] [place] [address] Performed By: #### 2 4356-8 ####[facility]CL[facility] [id number] [place] [address] [place] Leukocyte esterase Test strip Ql (U) 1+ Abnormal Negative [facility] Comment on above: Order Comment: Speci men Type: URINE SPECIMENOrdering Facility: [facility] Address: [address] [place] [address] Performed By: #### 2 4356-8 ####[facility]CL[facility] [id number] [place] [address] [place] Nitrite Ql (U) Positive Abnormal Negative [facility] Comment on above: Order Comment: Speci men Type: URINE SPECIMENOrdering Facility: [facility] Address: [address] [place] [address] Performed By: #### 2 4356-8 ####[facility]CLIA [id number] [place] [address] [place] pH (U) 7.5 [pH] Normal <8.5 [facility] Comment on above: Order Comment: Speci men Type: URINE SPECIMENOrdering Facility: [facility] Address: [address] [place] [address] Performed By: #### 2 4356-8 ####[facility]CLIA [id number] [place] [address] [place] Protein (U) [Mass/Vol] 3+ Abnormal Negative Cl [facility] Comment on above: Order Comment: Speci men Type: URINE SPECIMENOrdering Facility: [facility] Address: [address] [place] [address] Performed By: #### 2 4356-8 ####[facility]CL[facility] [id number] [place] [address] [place] RBC LM.HPF (Urine sed) [#/Area] 6-10 /HPF Abnormal 0-2 /HPF [facility] Comment on above: Order Comment: Speci men Type: URINE SPECIMENOrdering Facility: [facility] Address: [address] [place] [address] Performed By: #### 2 4356-8 ####[facility] [id number] [place] [address] [place] Specific gravity (U) [Rel density] 1.013 Normal 1.005-1.030 [facility] Comment on above: Order Comment: Speci men Type: URINE SPECIMENOrdering Facility: [facility] Address: [address] [place] [address] Performed By: #### 2 4356-8 ####[facility] [id number] [place] [address] [place] Urobilinogen Ql (U) 0.2 EU/dL Normal 0.2-1.0 EU/dL [facility] Comment on above: Order Comment: Speci men Type: URINE SPECIMENOrdering Facility: [facility] Address: [address] [place] [address] Performed By: #### 2 4356-8 ####[facility] [id number] [place] [address] [place] WBC LM.HPF (Urine sed) [#/Area] /[HPF] Abnormal 0-5 /HPF [facility] Comment on above: Order Comment: Speci men Type: URINE SPECIMENOrdering Facility: [facility] Address: [address] [place] [address] Performed By: #### 2 4356-8 ####[facility]CL[facility] [id number] [id number] [id number] [facility] CNPNon 06-03-2024 CNPN Telephone (INTMWS) BARBARA ALLEN ([id number]) 1955 F Date Time Provider Department 06/03/24 RODRIGO JIMENEZ INTMWS During your visit today, we recorded the following information about you: Yasmeen Whatley LPN 06/03/2024 11:31 AM Signed [facility] pharmacy calling asking to have directions on Furosemide 40 mg rx clarified. Rx say one tablet twice daily, in morning. Last rx that they processed was from [facility] and it was once daily. Can send new rx with new directions or can call. Please advise Rodrigo Jimenez MD 06/03/2024 7:03 PM Signed There was [...] two times a day. Authorizing Provider: RODRIGO JIMENEZ MD Quattrocchi, Beth, LPN 06/04/2024 9:05 AM Signed Phoned patient left message to return call and ask to speak to a nurse. Norma Kim LPN 06/04/2024 12:47 PM Signed Pt returns call, gave information provided, pt voices understanding. Allergies As of Date: 06/03/2024 Noted Allergy Reaction LISINOPRIL 03/10/2014 3 - Cough Date Reviewed: 01/29/2024 Reviewed by: Rodrigo Jimenez MD - Fully Assessed Reason for Visit: [...] every other day. - blood sugar diagnostic (ONETOUCH ULTRA TEST) test strip Use as instructed [...] Noted Resolved Type 2 diabetes mellitus with microalbuminuria,*05/01 Essential hypertension [I10] 05/01/2005 PURE HYPERCHOLESTEROLEM [E78.00] [...] Status:Closed by NORMA KIM on 06/04/24 Normal [facility] Cardiology Visit Reporton Cardiology Visit Report [facility] [address] [place] [address]. [address] [place] [address] OFFICE VISIT Date of Service: 02/11/24 MR#: [id number] Acct: [id number] Name: BARBARA ALLEN Rep #: [id number] : 1955 Provider: SHAILESH saenz Age/Sex: 68/F Location[place] [facility] [place] Status: Signed HPI [facility] History of Present Illness Details: This is a 68-year-old female who presents to the office today for a cardiovascular follow-up visit. She has a history of atrial fibrillation, congestive heart failure, hyperlipidemia, hypertension,pulmonary hypertension, and diabetes. She also has a history of obstructive sleep apnea. As you recall, the patient was admitted to 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 Normal [facility] Vital Signs Date Time Vital Sign Value Performing Clinician Facility 03-23-2025 00:12-0400 Body temperature 98 [degF] Dr. Rodrigo Jimenez MD Work Phone: 4(940)[phone] [place] [address] 03-23-2025 00:12-0400 Diastolic blood pressure 72 mm[Hg] Dr. Rodrigo Jimenez MD Work Phone: 8(558)918-480578 [place] [address] 03-23-2025 00:12-0400 Heart rate 82 /min Dr. Rodrigo Jimenez MD Work Phone: 1(911)131-827278 [place] [address] 03-23-2025 00:12-0400 Respiratory rate 24 /min Dr. Rodrigo Jimenez MD Work Phone: 7(962)970-362878 [place] [address] 03-23-2025 00:12-0400 SaO2% (BldA) [Mass fraction] 99 % Dr. Rodrigo Jimenez MD Work Phone: 7(232)[phone] [place] [address] 03-23-2025 00:12-0400 Systolic blood pressure 110 mm[Hg] Dr. Rodrigo Jimenez MD Work Phone: 4(037)127-946978 [place] [address] 03-22-2025 23:46-0400 Inhaled oxygen flow rate 3 L/min Dr. Rodrigo Jimenez MD Work Phone: 9(677)756-744678 [place] [address] 03-22-2025 20:59-0400 Body height 167.[address] Rodrigo Jimenez MD Work Phone: 8(727)148-277278 [place] [address] 03-22-2025 20:59-0400 Body mass index (BMI) [Ratio] 40.1 kg/m2 Dr. Rodrigo Jimenez MD Work Phone: 5(083)100-019278 [place] [address] 03-22-2025 20:59-0400 Body weight 112.[address] Rodrigo Jimenez MD Work Phone: [facility] 02-17-2025 09:54-0400 Body height 166.4 cm Rodrigo Jimenez MD Work Phone: [facility] 02-17-2025 09:54-0400 Body mass index (BMI) [Ratio] 39.99 kg/m2 Rodrigo Jimenez MD Work Phone: [facility] 02-17-2025 09:54-0400 Body temperature 97.9 [degF] Rodrigo Jimenez MD Work Phone: [facility] 02-17-2025 09:54-0400 Body weight 110.7 kg Rodrigo Jimenez MD Work Phone: [facility] 02-17-2025 09:54-0400 Diastolic blood pressure 64 mm[Hg] Rodrigo Jimenez MD Work Phone: [facility] 02-17-2025 09:54-0400 Heart rate 85 /min Rodrigo Jimenez MD Work Phone: [facility] 02-17-2025 09:54-0400 Respiratory rate 14 /min Rodrigo Jimenez MD Work Phone: [facility] 02-17-2025 09:54-0400 SaO2% (BldA) [Mass fraction] 97 % Rodrigo Jimenez MD Work Phone: [facility] 02-17-2025 09:54-0400 Systolic blood pressure 128 mm[Hg] Rodrigo Jimenez MD Work Phone: [facility] 02-04-2025 14:13-0400 Body height 167.[address] Rodrigo Jimenez MD Work Phone: [facility] 02-04-2025 14:13-0400 Body mass index (BMI) [Ratio] 38.9 kg/m2 Dr. Rodrigo Jimenez MD Work Phone: [facility] 02-04-2025 14:13-0400 Body weight 109.[address] Rodrigo Jimenez MD Work Phone: [facility] 02-04-2025 14:13-0400 Diastolic blood pressure 70 mm[Hg] Dr. Rodrigo Jimenez MD Work Phone: [facility] 02-04-2025 14:13-0400 Heart rate 81 /min Dr. Rodrigo Jimenez MD Work Phone: [facility] 02-04-2025 14:13-0400 Respiratory rate 18 /min Dr. Rodrigo Jimenez MD Work Phone: [facility] 02-04-2025 14:13-0400 SaO2% (BldA) [Mass fraction] 97 % Dr. Rodrigo Jimenez MD Work Phone: [facility] 02-04-2025 14:13-0400 Systolic blood pressure 112 mm[Hg] Dr. Rodrigo Jimenez MD Work Phone: [facility] 08-03-2024 14:00-0500 Body mass index (BMI) [Ratio] 40.32 kg/m2 Jillian Mojica TRANSLATOR DEAF.REGISTERED PHLEBOTOMIST PART TIME Work Phone: [facility] 08-03-2024 14:00-0500 Body weight 111.6 kg Jillian Mojica TRANSLATOR DEAF.REGISTERED PHLEBOTOMIST PART TIME Work Phone: [facility] 08-03-2024 14:00-0500 Diastolic blood pressure 61 mm[Hg] Jillian Mojica TRANSLATOR DEAF.REGISTERED PHLEBOTOMIST PART TIME Work Phone: [facility] 08-03-2024 14:00-0500 Heart rate 65 /min Jillian Mojica TRANSLATOR DEAF.REGISTERED PHLEBOTOMIST PART TIME Work Phone: [facility] 08-03-2024 14:00-0500 Respiratory rate 16 /min Jillian Mojica TRANSLATOR DEAF.REGISTERED PHLEBOTOMIST PART TIME Work Phone: [facility] 08-03-2024 14:00-0500 Systolic blood pressure 114 mm[Hg] Jillian Mojica TRANSLATOR DEAF.REGISTERED PHLEBOTOMIST PART TIME Work Phone: [facility] 01-29-2024 14:05-0400 Body mass index (BMI) [Ratio] 39.49 kg/m2 Rodrigo Jimenez MD Work Phone: [facility] 01-29-2024 14:05-0400 Body temperature 96.49 [degF] Rodrigo Jimenez MD Work Phone: [facility] 01-29-2024 14:05-0400 Body weight 109.32 kg Rodrigo Jimenez MD Work Phone: [facility] 01-29-2024 14:05-0400 Diastolic blood pressure 64 mm[Hg] Rodrigo Jimenez MD Work Phone: [facility] 01-29-2024 14:05-0400 Heart rate 87 /min Rodrigo Jimenez MD Work Phone: [facility] 01-29-2024 14:05-0400 Respiratory rate 18 /min Rodrigo Jimenez MD Work Phone: [facility] 01-29-2024 14:05-0400 SaO2% (BldA) [Mass fraction] 97 % Rodrigo Jimenez MD Work Phone: [facility] 01-29-2024 14:05-0400 Systolic blood pressure 128 mm[Hg] Rodrigo Jimenez MD Work Phone: [facility] 02-15-2023 13:49-0400 Body temperature 97.81 [degF] Rodrigo Jimenez MD Work Phone: [facility] 02-15-2023 13:49-0400 Body weight 109.32 kg Rodrigo Jimenez MD Work Phone: [facility] 02-15-2023 13:49-0400 Diastolic blood pressure 68 mm[Hg] Rodrigo Jimenez MD Work Phone: [facility] 02-15-2023 13:49-0400 Heart rate 85 /min Rodrigo Jimenez MD Work Phone: [facility] 02-15-2023 13:49-0400 Respiratory rate 18 /min Rodrigo Jimenez MD Work Phone: [facility] 02-15-2023 13:49-0400 SaO2% (BldA) [Mass fraction] 96 % Rodrigo Jimenez MD Work Phone: [facility] 02-15-2023 13:49-0400 Systolic blood pressure 124 mm[Hg] Rodrigo Jimenez MD Work Phone: [facility] 02-12-2022 13:46-0400 Body weight 109.32 kg Rodrigo Jimenez MD Work Phone: [facility] 02-12-2022 13:46-0400 Diastolic blood pressure 60 mm[Hg] Rodrigo Jimenez MD Work Phone: [facility] 02-12-2022 13:46-0400 Heart rate 63 /min Rodrigo Jimenez MD Work Phone: [facility] 02-12-2022 13:46-0400 SaO2% (BldA) [Mass fraction] 96 % Rodrigo Jimenez MD Work Phone: [facility] 02-12-2022 13:46-0400 Systolic blood pressure 112 mm[Hg] Rodrigo Jimenez MD Work Phone: [facility] 12-25-2021 10:54-0400 Body height 167.[address] Rodrigo Jimenez Work Phone: [facility] Work Phone: 12-25-2021 10:54-0400 Body weight 106.[address] Rodrigo Jimenez Work Phone: [facility] Work Phone: 12-25-2021 10:54-0400 Diastolic blood pressure 58 mm[Hg] Dr. Rodrigo Jimenez Work Phone: [facility] Work Phone: 12-25-2021 10:54-0400 Heart rate 60 /min Dr. Rodrigo Jimenez Work Phone: [facility] Work Phone: 12-25-2021 10:54-0400 Respiratory rate 18 /min Dr. Rodrigo Jimenez Work Phone: [facility] Work Phone: 12-25-2021 10:54-0400 Systolic blood pressure 122 mm[Hg] Dr. Rodrigo Jimenez Work Phone: [facility] Work Phone: 02-27-2021 10:08-0400 Body mass index (BMI) [Ratio] 43.4 kg/m2 Dr. Rodrigo Jimenez Work Phone: [facility] Work Phone: Encounters Encounter Date Encounter Type Care Provider Facility Start: 03-23-2025 Non-patient / Non-visit Dr. Martínez crawley MD -[facility] Work Phone: Start: 03-22-2025 Evaluation and manag ement of inpatient Dr. Martínez Archer MD -[facility] Work Phone: Start: 02-17-2025 End: 02-17-2025 Office outpatient visit 25 minutes Rodrigo Jimenez MD Work Phone: [facility] [place] Comment on above: Controlled type 2 di abetes mellitus with microalbuminuria, with long-term current use of insulin (HCC) (Primary Dx); Pure hypercholesterolemia; Vitamin D deficiency; Essential hypertension; Acquired hypothyroidism; Longstanding persistent atrial fibrillation (HCC); Gastroesophageal reflux disease without esophagitis; Hypomagnesemia; Pulmonary hypertension (HCC); Severe obesity (BMI 35.0-39.9) with comorbidity (HCC) Start: 02-17-2025 End: 02-17-2025 ambulatory RODRIGO JIMENEZ Facility:[facility] Start: 02-04-2025 End: 02-04-[address] Milton Linton MD -[facility] Work Phone: Start: 02-04-2025 End: 02-04-2025 ambulatory Rodrigo Jimenez Facility[facility] Start: 02-02-2025 End: 02-02-2025 Coordination of care plan Josette Salcedo RN Work Phone: [facility] Comment on above: Care Coordination Start: 02-02-2025 End: 02-02-2025 ambulatory Josette Salcedo RN Work Phone: [facility] Start: 01-29-2025 End: 02-02-2025 Refill Jillian Mojica APRN.REGISTERED PHLEBOTOMIST PART TIME Work Phone: [facility] [place] Comment on above: Refill Request Solostdarling kurtz Start: 01-13-2025 End: 01-18-2025 ambulatory Rodrigo Jimenez MD Work Phone: [facility] [place] Comment on above: Tests for visit Start: 12-18-2024 End: 12-18-2024 Refill Rodrigo Jimenez MD Work Phone: [facility] [place] Comment on above: Refill Request Start: 12-16-2024 End: 12-16-2024 ambulatory Vik Corey [facility] Work Phone: Pharmacy Medicine Start: 12-16-2024 End: 12-16-2024 Patient encounter procedure Vik Corey [facility] Work Phone: Pharm[facility] Comment on above: Care Coordination (P rob Management Review for Pharmacist Referral for Diabetes Management) Start: 12-08-2024 End: 01-08-2025 ambulatory Rodrigo Jimenez MD Work Phone: [facility] [place] Start: 11-18-2024 End: 11-18-2024 ambulatory Vanessa Navarro MA [facility] Start: 11-18-2024 End: 11-18-2024 Patient encounter procedure Vanessa Navarro MA [facility] Comment on above: Population Health Na vigation Outreach ([employer] High Risk - Attempt 1 ) February 01 appointment Start: 08-03-2024 End: 08-03-2024 Office outpatient visit 25 minutes Jillian Mojica APRN.REGISTERED PHLEBOTOMIST PART TIME Work Phone: [facility] [place] Comment on above: Type 2 diabetes peace itus with microalbuminuria, with long-term current use of insulin (HCC) (Primary Dx); Essential hypertension; Pure hypercholesterolemia; Gastroesophageal reflux disease without esophagitis; Chronic anticoagulation; Longstanding persistent atrial fibrillation (HCC); Acute cystitis with hematuria; Encounter for immunization; Screening for colon cancer Start: 08-03-2024 End: 08-03-2024 ambulatory JILLIAN MOJICA Facility:[facility] Start: 07-22-2024 End: 07-22-2024 ambulatory RODRIGO JIMENEZ Facility:[facility] Start: 06-03-2024 End: 06-04-2024 Telephone encounter Rodrigo Jimenez MD Work Phone: [facility] [place] Comment on above: clarify rx direction s Start: 05-25-2024 End: 05-26-2024 Refill Rodrigo Jimenez MD Work Phone: [facility] [place] Comment on above: Refill Request Start: 02-11-2024 End: 02-11-2024 ambulatory Evy Pascal NP Facility:[facility] Start: 01-29-2024 End: 01-29-2024 Patient encounter procedure Rodrigo Jimenez MD Work Phone: [facility] [place] Comment on above: Medicare annual well ness visit, subsequent (Primary Dx); Controlled type 2 diabetes mellitus with microalbuminuria, with long-term current use of insulin (HCC); Pure hypercholesterolemia; Vitamin D deficiency; Screening for osteoporosis; Asymptomatic menopause; Encounter for immunization Start: 01-22-2024 Refill Benita Beltran APRN.CNP Work Phone: [facility] [place] Comment on above: Refill Request Start: 01-08-2024 ambulatory Rodrigo carson MD Work Phone: [facility] [place] Start: 12-31-2023 ambulatory Rodrigo carson MD Work Phone: [facility] [place] Comment on above: Lantus Solostar Refill Request Start: 12-26-2023 ambulatory Cristal Pratt [facility] Work Phone: [facility] Start: 12-26-2023 Patient encounter procedure Cristal Pratt [facility] Work Phone: [facility] Start: 12-24-2023 Telephone encounter Rodrigo frances MD Work Phone: [facility] [place] Comment on above: Orders Start: 12-12-2023 Refill Rodrigo carson MD Work Phone: [facility] [place] Comment on above: Refill Request Start: 12-06-2023 Refill Rodrigo carson MD Work Phone: [facility] [place] Comment on above: Refill Request Start: 10-09-2023 Refill Rodrigo carson MD Work Phone: [facility] [place] Comment on above: Refill Request Start: 10-02-2023 Refill Jillian Mojica TRANSLATOR DEAF.REGISTERED PHLEBOTOMIST PART TIME Work Phone: [facility] [place] Comment on above: Refill Request Start: 07-10-2023 ambulatory Rodrigo carson MD Work Phone: [facility] [place] Comment on above: 2022 flu shot Start: 06-03-2023 Telephone encounter Rodrigo frances MD Work Phone: [facility] [place] Comment on above: Oxygen Order Start: 06-02-2023 ambulatory Jessica Barajas [facility] Comment on above: Population Health Na vigation Outreach ([employer] Care Gap Outreach/) Start: 03-07-2023 Get Medical Advice Rodrigo anna MD Work Phone: [facility] [place] Comment on above: Lantus Solostar refi ll Refill Request Start: 02-15-2023 End: 02-15-2023 Office outpatient visit 25 minutes Rodrigo Jimenez MD Work Phone: [facility] [place] Comment on above: Type 2 diabetes peace itus with hyperglycemia, with long-term current use of insulin (HCC) (Primary Dx); Essential hypertension; Type 2 diabetes mellitus with microalbuminuria, with long-term current use of insulin (HCC); Pure hypercholesterolemia; Longstanding persistent atrial fibrillation (HCC); Colon cancer screening Start: 01-30-2023 ambulatory Rodrigo carson MD Work Phone: [facility] [place] Start: 01-08-2023 Refill Jillian Mojica TRANSLATOR DEAF.REGISTERED PHLEBOTOMIST PART TIME Work Phone: [facility] [place] Comment on above: Refill Request Start: 11-26-2022 Refill Jillian Mojica TRANSLATOR DEAF.REGISTERED PHLEBOTOMIST PART TIME Work Phone: [facility] [place] Comment on above: Refill Request Start: 10-03-2022 ambulatory Ida Felix MIGUE [facility] Comment on above: Population Health Na vigation Outreach ([employer] care gaps) Start: 09-04-2022 Refill Jillian Solimans TRANSLATOR DEAF.REGISTERED PHLEBOTOMIST PART TIME Work Phone: [facility] [place] Comment on above: Refill Request Start: 08-06-2022 ambulatory Jillian Solimans TRANSLATOR DEAF.REGISTERED PHLEBOTOMIST PART TIME Work Phone: [facility] [place] Comment on above: Lab work Start: 06-19-2022 ambulatory Vanessa Gamez bella Ramon [place] [facility] Comment on above: Population Health Na vigation Outreach ([employer] Care Gaps ) Start: 06-02-2022 Refill Rodrigo carson MD Work Phone: [facility] [place] Comment on above: Refill Request Start: 03-05-2022 Refill Lesly Pfeiffer TRANSLATOR DEAF [employer] Work Phone: [facility] [place] Comment on above: Refill Request Start: 02-28-2022 ambulatory Rodrigo carson MD Work Phone: [facility] [place] Start: 02-12-2022 End: 02-12-2022 Office outpatient visit 25 minutes Rodrigo Jimenez MD Work Phone: [facility] [place] Comment on above: Controlled type 2 di abetes mellitus with microalbuminuria, with long-term current use of insulin (HCC) (Primary Dx); Essential hypertension; Pure hypercholesterolemia; Stasis edema of both lower extremities; Acute on chronic diastolic congestive heart failure (HCC); Elevated TSH Start: 01-25-2022 Refill Jillian Solimans TRANSLATOR DEAF.REGISTERED PHLEBOTOMIST PART TIME Work Phone: [facility] [place] Comment on above: Refill Request Start: 01-23-2022 End: 01-23-[address] Rodrgio Jimenez Work Phone: [facility] Start: 12-25-2021 End: 12-25-[address] Rodrigo Jimenez Work Phone: [facility] Start: 11-23-2021 ambulatory Maggy Fritz MA [facility] Comment on above: Population Health Na vigation Outreach (Care gap) Procedures Date Procedure Procedure Detail Performing Clinician Start: 03-22-2025 Urnls dip stick/tabl et reagent auto microscopy Dr. Rodrigo Jimenez MD Work Phone: Start: 03-22-2025 Plain chest X-ray Dr. Violet Jimenez MD Work Phone: Start: 03-22-[address] Rodrigo Jimenez MD Work Phone: Start: 01-29-2024 Adult depression scr eening assessment Rodrigo Jimenez MD Work Phone: Start: 02-12-2022 Adult depression scr eening assessment Rodrigo Jimenez MD Work Phone: Start: 12-21-2020 Adult depression scr eening assessment Maggy Fritz MA Start: 07-27-2015 Mammography Maggy siegel MA Plan of Treatment Date Care Activity Detail Author Start: 02-17-2026 Annual PCP Team Chronic Disease Visit Annual PCP Team Chronic Disease Visit [facility] Start: 02-02-2026 Hepatitis B screening Urine Albumin:Creatinine Ratio [facility] Start: 02-02-2026 Hepatitis B surface antibody level LDL Cholesterol [facility] Start: 01-21-2026 End: 01-21-2026 Patient encounter procedure 01/21/2026 11:00 AM EDT Office Visit [facility] [place] [address] [place], [place] [id number] Rodrigo Jimenez MD [address] [place], [place] [id number] 6 month follow ujp [facility] [place] Comment on above: 6 month follow ujp Start: 08-03-2025 BP Controlled (<130/80) BP Controlled (<130/80) [facility] Start: 07-22-2025 Hepatitis B screening Urine Albumin:Creatinine Ratio [facility] Start: 07-22-2025 Hepatitis B surface antibody level LDL Cholesterol [facility] Start: 07-20-2025 End: 07-20-2025 Patient encounter procedure 07/20/2025 11:00 AM EST Office Visit [facility] [place] [address] [place] [id number] Jillian Mojica APRN.REGISTERED PHLEBOTOMIST PART TIME [address] [facility] [place], [place] [address] medicare wellness and follow up per Der[facility] [place] Comment on above: medicare wellness and follow up per Opal pal Start: 07-03-2025 End: 10-02-2025 25-hydroxyvitamin D3 [Mass/volume] in Serum or Plasma VITAMIN D 25 HYDROXY Lab Routine Vitamin D deficiency Expected: 07/03/2025 (Approximate), Expires: 10/02/2025 [facility] Comment on above: Expected: 07/03/2025 (Approximate), Expi res: 10/02/2025 Start: 07-03-2025 End: 10-02-2025 CBC panel - Blood by Automated count COMPLETE BLOOD COUNT Lab Routine Controlled type 2 diabetes mellitus with microalbuminuria, with long-term current use of insulin (HCC) Expected: 07/03/2025 (Approximate), Expires: 10/02/2025 [facility] Comment on above: Expected: 07/03/2025 (Approximate), Expi res: 10/02/2025 Start: 07-03-2025 End: 10-02-2025 Comprehensive metabolic 2000 panel - Serum or Plasma COMPREHENSIVE METABOLIC PANEL Lab Routine Controlled type 2 diabetes mellitus with microalbuminuria, with long-term current use of insulin (HCC) Expected: 07/03/2025 (Approximate), Expires: 10/02/2025 [facility] Comment on above: Expected: 07/03/2025 (Approximate), Expi res: 10/02/2025 Start: 07-03-2025 End: 10-02-2025 Hemoglobin A1c in Blood HEMOGLOBIN A1C Lab Routine Controlled type 2 diabetes mellitus with microalbuminuria, with long-term current use of insulin (HCC) Expected: 07/03/2025 (Approximate), Expires: 10/02/2025 [facility] Comment on above: Expected: 07/03/2025 (Approximate), Expi res: 10/02/2025 Start: 07-03-2025 End: 10-02-2025 Lipid 1996 panel - Serum or Plasma LIPID PANEL, FASTING Lab Routine Controlled type 2 diabetes mellitus with microalbuminuria, with long-term current use of insulin ([facility]) Pure hypercholesterolemia Expected: 07/03/2025 (Approximate), Expires: 10/02/2025 [facility] Comment on above: Expected: 07/03/2025 (Approximate), Expi res: 10/02/2025 Start: 07-03-2025 End: 10-02-2025 Magnesium [Mass/volume] in Serum or Plasma MAGNESIUM Lab Routine Controlled type 2 diabetes mellitus with microalbuminuria, with long-term current use of insulin (HCC) Hypomagnesemia Expected: 07/03/2025 (Approximate), Expires: 10/02/2025 [facility] Comment on above: Expected: 07/03/2025 (Approximate), Expi res: 10/02/2025 Start: 07-03-2025 End: 10-02-2025 Microalbumin/Creatinin e [Mass Ratio] in Urine ALBUMIN/CREATININE RATIO, URINE Lab Routine Controlled type 2 diabetes mellitus with microalbuminuria, with long-term current use of insulin (HCC) Expected: 07/03/2025 (Approximate), Expires: 10/02/2025 [facility] Comment on above: Expected: 07/03/2025 (Approximate), Expi res: 10/02/2025 Start: 05-05-2025 Hemoglobin A1c measurement HbA1C [facility] Start: 05-03-2025 Influenza vaccination Influenza Vaccine (#1) [facility] Start: 04-19-2025 End: 07-19-2025 Magnesium [Mass/volume] in Serum or Plasma MAGNESIUM Lab Routine Hypomagnesemia Expected: 04/19/2025 (Approximate), Expires: 07/19/2025 [facility] Comment on above: Expected: 04/19/2025 (Approximate), Expi res: 07/19/2025 Start: 03-23-[address] [facility] Start: 03-23-2025 Verification [address] [facility] Start: 03-23-2025 Admission procedure [facility] Start: 03-22-[address] [facility] Start: 03-22-2025 Hospital admission, emergency, from emergency room, medical nature [facility] Start: 03-22-2025 End: 03-22-[address] [facility] Start: 03-22-2025 Bacteria identified in Blood by Culture Blood Culture [facility] Start: 03-22-2025 Bacteria identified in Urine by Culture Urine Culture [facility] Start: 03-10-2025 Glaucoma screening Dilated Retinal Exam [facility] Start: 02-17-2025 End: 02-17-2025 Patient encounter procedure [facility] [place] Comment on above: 6 month follow up / Review HM Due - UACR /CMP due to satisfy KED metric for 2024, Mammogram, Colorectal Cancer screen, Diabetic Eye exam and 2024 MWE - please assist in scheduling 6 month follow up Start: 02-09-2025 Shingrix Vaccine (2 of 2) Shingrix Vaccine (2 of 2) [facility] Start: 02-01-2025 End: 02-01-2025 Patient encounter procedure 02/01/2025 1:40 PM EDT Office Visit [facility] [place] [address] [place] [address] Rodrigo Jimenez MD [address] [place] [address] 6 month follow up [facility] [place] Comment on above: 6 month follow up Start: 01-28-2025 Annual PCP Team Chronic Disease Visit Annual PCP Team Chronic Disease Visit [facility] Start: 01-28-2025 Anxiety Screening Anxiety Screening [facility] Start: 01-28-2025 BP Controlled (<130/80) BP Controlled (<130/80) [facility] Start: 01-28-2025 Depression Screening Depression Screening [facility] Start: 01-23-2025 Hepatitis B screening Urine Albumin:Creatinine Ratio [facility] Start: 01-23-2025 Hepatitis B surface antibody level LDL Cholesterol [facility] Start: 01-15-2025 End: 04-16-2025 25-hydroxyvitamin D3 [Mass/volume] in Serum or Plasma VITAMIN D 25 HYDROXY Lab Routine Vitamin D deficiency Expected: 01/15/2025 (Approximate), Expires: 04/16/2025 [facility] Comment on above: Expected: 01/15/2025 (Approximate), Expi res: 04/16/2025 Start: 01-15-2025 End: 04-16-2025 CBC W Auto Differential panel - Blood COMPLETE BLOOD COUNT AND DIFFERENTIAL Lab Routine Essential hypertension Expected: 01/15/2025 (Approximate), Expires: 04/16/2025 [facility] Comment on above: Expected: 01/15/2025 (Approximate), Expi res: 04/16/2025 Start: 01-15-2025 End: 04-16-2025 Comprehensive metabolic 2000 panel - Serum or Plasma COMPREHENSIVE METABOLIC PANEL Lab Routine Type 2 diabetes mellitus with microalbuminuria, with long-term current use of insulin (HCC) Expected: 01/15/2025 (Approximate), Expires: 04/16/2025 [facility] Comment on above: Expected: 01/15/2025 (Approximate), Expi res: 04/16/2025 Start: 01-15-2025 End: 04-16-2025 Hemoglobin A1c in Blood HEMOGLOBIN A1C Lab Routine Type 2 diabetes mellitus with microalbuminuria, with long-term current use of insulin (HCC) Expected: 01/15/2025 (Approximate), Expires: 04/16/2025 [facility] Comment on above: Expected: 01/15/2025 (Approximate), Expi res: 04/16/2025 Start: 01-15-2025 End: 04-16-2025 Lipid 1996 panel - Serum or Plasma LIPID PANEL, FASTING Lab Routine Pure hypercholesterolemia Expected: 01/15/2025 (Approximate), Expires: 04/16/2025 [facility] Comment on above: Expected: 01/15/2025 (Approximate), Expi res: 04/16/2025 Start: 01-15-2025 End: 04-16-2025 Magnesium [Mass/volume] in Serum or Plasma MAGNESIUM Lab Routine Essential hypertension Encounter for long-term current use of medication Expected: 01/15/2025 (Approximate), Expires: 04/16/2025 [facility] Comment on above: Expected: 01/15/2025 (Approximate), Expi res: 04/16/2025 Start: 01-15-2025 End: 04-16-2025 Microalbumin/Creatinin e [Mass Ratio] in Urine ALBUMIN/CREATININE RATIO, URINE Lab Routine Type 2 diabetes mellitus with microalbuminuria, with long-term current use of insulin (HCC) Expected: 01/15/2025 (Approximate), Expires: 04/16/2025 [facility] Comment on above: Expected: 01/15/2025 (Approximate), Expi res: 04/16/2025 Start: 01-15-2025 End: 04-16-2025 Thyrotropin [Units/volume] in Serum or Plasma THYROID STIMULATING HORMONE Lab Routine Elevated TSH Expected: 01/15/2025 (Approximate), Expires: 04/16/2025 [facility] Work Phone: Comment on above: Expected: 01/15/2025 (Approximate), Expi res: 04/16/2025 Start: 10-22-2024 Hemoglobin A1c measurement HbA1C [facility] Start: 09-03-2024 End: 12-03-2024 Urinalysis complete panel - Urine URINALYSIS WITH MICROSCOPIC, REFLEX CULTURE Lab Routine Acute cystitis with hematuria Expected: 09/03/2024 (Approximate), Expires: 12/03/2024 [facility] Comment on above: Expected: 09/03/2024 (Approximate), Expi res: 12/03/2024 Start: 09-02-2024 Advance Directive Discussion Advance Directive Discussion [facility] Start: 09-02-2024 Diabetic foot examination Diabetic Foot Exam [facility] Comment on above: Postponed from 08/14/2023 (Declined at t his time) Start: 09-02-2024 Medicare Advantage Annual Wellness Visit Medicare Advantage Annual Wellness Visit [facility] Start: 08-03-2024 End: 08-03-2024 Patient encounter procedure [facility] [place] Comment on above: 6 month follow up 6 month follow up Sh ingrix Vaccine Start: 06-18-2024 Glaucoma screening Dilated Retinal Exam [facility] Start: 06-18-2024 Hepatitis C antibody, confirmatory test Dilated Retinal Exam [facility] Start: 05-11-2024 End: 05-11-2024 Patient encounter procedure 05/11/2024 2:15 PM EDT Appointment Radiology [address] [place] [address] Screening for osteoporosis [Z13.820] Radiology Comment on above: Screening for osteoporosis [Z13.820] Start: 05-03-2024 Influenza vaccination Influenza Vaccine (#1) [facility] Start: 04-25-2024 Hemoglobin A1c measurement HbA1C [facility] Start: 02-16-2024 ANNUAL PCP TEAM CHRONIC DISEASE VISIT ANNUAL PCP TEAM CHRONIC DISEASE VISIT [facility] Start: 02-16-2024 BP CONTROLLED (<130/80) BP CONTROLLED (<130/80) [facility] Start: 02-16-2024 SHINGRIX VACCINE (1 of 2) SHINGRIX VACCINE (1 of 2) [facility] Comment on above: Postponed from 2003 (Declined at t his time) Start: 02-16-2024 Urine microalbumin profile [facility] Comment on above: Postponed from 07/13/2020 (Declined at t his time) Start: 02-12-2024 Hepatitis B surface antibody level LDL CHOLESTEROL [facility] Start: 01-29-2024 End: 01-29-2024 Patient encounter procedure 01/29/2024 2:00 PM EDT Office Visit [facility] [address] [place] [address] Rodrigo Jimenez MD [address] [place], [place] [id number] Routine visit [facility] Comment on above: Routine visit Start: 09-02-2023 Advance Directive Discussion Advance Directive Discussion [facility] Start: 09-02-2023 Behavioral Health Screening Behavioral Health Screening [facility] Start: 09-02-2023 Depression Assessment Depression Assessment [facility] Start: 08-17-2023 End: 10-17-2023 ALBUMIN/CREAT RATIO RND UR ALBUMIN/CREAT RATIO RND UR Lab Routine Type 2 diabetes mellitus with microalbuminuria, with long-term current use of insulin (HCC) Expected: 08/17/2023 (Approximate), Expires: 10/17/2023 [facility] Work Phone: Comment on above: Expected: 08/17/2023 (Approximate), Expi res: 10/17/2023 Start: 08-17-2023 End: 10-17-2023 CBC panel - Blood by Automated count CBC Lab Routine Essential hypertension Expected: 08/17/2023 (Approximate), Expires: 10/17/2023 [facility] Work Phone: Comment on above: Expected: 08/17/2023 (Approximate), Expi res: 10/17/2023 Start: 08-17-2023 End: 10-17-2023 Comprehensive metabolic 2000 panel - Serum or Plasma COMP METABOLIC PANEL Lab Routine Type 2 diabetes mellitus with microalbuminuria, with long-term current use of insulin (HCC) Type 2 diabetes mellitus with hyperglycemia, with long-term current use of insulin (HCC) Essential hypertension Expected: 08/17/2023 (Approximate), Expires: 10/17/2023 [facility] Work Phone: Comment on above: Expected: 08/17/2023 (Approximate), Expi res: 10/17/2023 Start: 08-17-2023 End: 10-17-2023 Hemoglobin A1c in Blood HGB A1C Lab Routine Type 2 diabetes mellitus with microalbuminuria, with long-term current use of insulin (HCC) Type 2 diabetes mellitus with hyperglycemia, with long-term current use of insulin (HCC) Expected: 08/17/2023 (Approximate), Expires: 10/17/2023 [facility] Work Phone: Comment on above: Expected: 08/17/2023 (Approximate), Expi res: 10/17/2023 Start: 08-17-2023 End: 10-17-2023 Lipid 1996 panel - Serum or Plasma LIPID PANEL BASIC Lab Routine Pure hypercholesterolemia Expected: 08/17/2023 (Approximate), Expires: 10/17/2023 [facility] Work Phone: Comment on above: Expected: 08/17/2023 (Approximate), Expi res: 10/17/2023 Start: 08-14-2023 3 comp foot exam completed DIABETIC FOOT EXAM [facility] Start: 08-14-2023 BONE DENSITY BONE DENSITY [facility] Comment on above: Postponed from 2018 (Declined at t his time) Start: 08-14-2023 Bone Density Screening Bone Density Screening [facility] Comment on above: Postponed from 2018 (Declined at t his time) Start: 08-14-2023 Diabetic foot examination Diabetic Foot Exam [facility] Start: 08-08-2023 Hepatitis B screening URINE ALBUMIN:CREATININE RATIO [facility] Start: 05-14-2023 Hemoglobin A1c measurement HbA1C [facility] Start: 05-14-2023 Hemoglobin A1c/Hemoglobin.total in Blood HBA1C [facility] Start: 05-03-2023 Covid-19 Vaccine () Covid-19 Vaccine () [facility] Start: 05-03-2023 Influenza vaccination [facility] Start: 02-12-2023 Adult depression screening assessment DEPRESSION SCREENING [facility] Start: 02-12-2023 ANNUAL PCP TEAM CHRONIC DISEASE VISIT ANNUAL PCP TEAM CHRONIC DISEASE VISIT [facility] Start: 02-12-2023 BP CONTROLLED (<130/80) BP CONTROLLED (<130/80) [facility] Start: 02-07-2023 Hepatitis B screening URINE ALBUMIN:CREATININE RATIO [facility] Start: 02-07-2023 Hepatitis B surface antibody level LDL CHOLESTEROL [facility] Start: 02-06-2023 Hemoglobin A1c/Hemoglobin.total in Blood HBA1C [facility] Start: 12-13-2022 COVID-19 VACCINE (3 - Mixed Product series) COVID-19 VACCINE (3 - Mixed Product series) [facility] Start: 10-09-2022 COVID-19 VACCINE (3 - Booster) COVID-19 VACCINE (3 - Booster) [facility] Start: 09-02-2022 ADVANCE DIRECTIVE DISCUSSION ADVANCE DIRECTIVE DISCUSSION [facility] Start: 09-02-2022 DEPRESSION ASSESSMENT DEPRESSION ASSESSMENT [facility] Start: 08-14-2022 End: 10-14-2022 ALBUMIN/CREAT RATIO RND UR ALBUMIN/CREAT RATIO RND UR Lab Routine Controlled type 2 diabetes mellitus with microalbuminuria, with long-term current use of insulin (HCC) Expected: 08/14/2022 (Approximate), Expires: 10/14/2022 [facility] Work Phone: Comment on above: Expected: 08/14/2022 (Approximate), Expi res: 10/14/2022 Start: 08-14-2022 End: 10-14-2022 CBC panel - Blood by Automated count CBC Lab Routine Controlled type 2 diabetes mellitus with microalbuminuria, with long-term current use of insulin (HCC) Essential hypertension Expected: 08/14/2022 (Approximate), Expires: 10/14/2022 [facility] Work Phone: Comment on above: Expected: 08/14/2022 (Approximate), Expi res: 10/14/2022 Start: 08-14-2022 End: 10-14-2022 Comprehensive metabolic 2000 panel - Serum or Plasma COMP METABOLIC PANEL Lab Routine Controlled type 2 diabetes mellitus with microalbuminuria, with long-term current use of insulin (HCC) Essential hypertension Expected: 08/14/2022 (Approximate), Expires: 10/14/2022 [facility] Work Phone: Comment on above: Expected: 08/14/2022 (Approximate), Expi res: 10/14/2022 Start: 08-14-2022 End: 10-14-2022 Hemoglobin A1c in Blood HGB A1C Lab Routine Elevated TSH Expected: 08/14/2022 (Approximate), Expires: 10/14/2022 [facility] Work Phone: Comment on above: Expected: 08/14/2022 (Approximate), Expi res: 10/14/2022 Start: 08-14-2022 End: 10-14-2022 Thyrotropin [Units/volume] in Serum or Plasma TSH BLD Lab Routine Elevated TSH Expected: 08/14/2022 (Approximate), Expires: 10/14/2022 [facility] Work Phone: Comment on above: Expected: 08/14/2022 (Approximate), Expi res: 10/14/2022 Start: 08-14-2022 End: 10-14-2022 Thyroxine (T4) free [Mass/volume] in Serum or Plasma T4 FREE/FREE THYROX Lab Routine Elevated TSH Expected: 08/14/2022 (Approximate), Expires: 10/14/2022 [facility] Work Phone: Comment on above: Expected: 08/14/2022 (Approximate), Expi res: 10/14/2022 Start: 07-10-2022 ANNUAL PCP TEAM CHRONIC DISEASE VISIT ANNUAL PCP TEAM CHRONIC DISEASE VISIT [facility] Start: 07-10-2022 BP CONTROLLED (<130/80) BP CONTROLLED (<130/80) [facility] Start: 07-10-2022 SHINGRIX VACCINE (1 of 2) SHINGRIX VACCINE (1 of 2) [facility] Comment on above: Postponed from 2003 (Declined at t his time) Start: 07-10-2022 Urine microalbumin profile DTAP,TDAP,TD (2 - Td or Tdap) [facility] Comment on above: Postponed from 07/13/2020 (Declined at t his time) Start: 06-26-2022 COLORECTAL CANCER SCREENING COLORECTAL CANCER SCREENING [facility] Start: 06-26-2022 FECAL OCCULT BLOOD FECAL OCCULT BLOOD [facility] Start: 06-26-2022 Hepatitis B screening URINE ALBUMIN:CREATININE RATIO [facility] Start: 06-26-2022 Screening for malignant neoplasm of colon [facility] Start: 05-10-2022 Hemoglobin A1c/Hemoglobin.total in Blood HBA1C [facility] Start: 05-03-2022 Influenza vaccination INFLUENZA (#1) [facility] Start: 04-16-2022 Hepatitis C antibody, confirmatory test DILATED RETINAL EXAM [facility] Start: 01-07-2022 3 comp foot exam completed DIABETIC FOOT EXAM [facility] Comment on above: Postponed from 04/27/2020 (Declined at t his time) Start: 12-25-2021 Hemoglobin A1c/Hemoglobin.total in Blood HBA1C [facility] Start: 12-21-2021 Adult depression screening assessment DEPRESSION SCREENING [facility] Start: 12-16-2021 Hepatitis B surface antibody level LDL CHOLESTEROL [facility] Start: 09-02-2021 ADVANCE DIRECTIVE DISCUSSION ADVANCE DIRECTIVE DISCUSSION [facility] Start: 09-02-2021 DEPRESSION ASSESSMENT DEPRESSION ASSESSMENT [facility] Start: 01-05-2021 COVID-19 VACCINE (2 - Moderna 3-dose series) COVID-19 VACCINE (2 - Moderna 3-dose series) [facility] Start: 01-05-2021 COVID-19 VACCINE (2 - Moderna series) COVID-19 VACCINE (2 - Moderna series) [facility] Start: 11-05-2020 BP CONTROLLED (<130/80) BP CONTROLLED (<130/80) [facility] Start: 07-13-2020 Urine microalbumin profile [facility] Start: 04-27-2020 3 comp foot exam completed DIABETIC FOOT EXAM [facility] Start: 2018 BONE DENSITY BONE DENSITY [facility] Start: 2018 Screening for osteoporosis Bone Density Screening [facility] Start: 07-27-2016 Mammography [facility] Start: 07-27-2016 Screening for malignant neoplasm of breast Mammogram Screening [facility] Start: 2013 Hepatitis B Vaccine (1 of 3 - Risk 3-dose series) Hepatitis B Vaccine (1 of 3 - Risk 3-dose series) [facility] Start: 2013 RSV Vaccine (1 - 1-dose 60+ series) RSV Vaccine (1 - 1-dose 60+ series) [facility] Start: 2013 RSV Vaccine (1 - Risk 60-74 years 1-dose series) RSV Vaccine (1 - Risk 60-74 years 1-dose series) [facility] Start: 2003 SHINGRIX VACCINE (1 of 2) SHINGRIX VACCINE (1 of 2) [facility] Start: 1998 COLOGUARD (FIT-DNA) COLOGUARD (FIT-DNA) [facility] Start: 1998 Colonoscopy COLONOSCOPY [facility] Start: [address] COLONOGRAPHY [facility] Start: 1998 Screening for malignant neoplasm of colon [facility] Start: 1998 SIGMOIDOSCOPY SIGMOIDOSCOPY [facility] Start: 1961 PNEUMOCOCCAL: 65+ (1 - PCV) PNEUMOCOCCAL: 65+ (1 - PCV) [facility] End: 12-26-2024 25-hydroxyvitamin D3 [Mass/volume] in Serum or Plasma VITAMIN D 25 HYDROXY Lab Routine Type 2 diabetes mellitus with hyperglycemia, with long-term current use of insulin (HCC) Encounter for long-term current use of medication Vitamin D deficiency Every 6 months for 20 Occurrences starting 12/27/2023 until 12/26/2024 [facility] Comment on above: Every 6 months for 20 Occurrences starti ng 12/27/2023 until 12/26/2024 End: 02-27-2025 BD DXA TRABECULAR BONE SCORE (TBS) BD DXA TRABECULAR BONE SCORE (TBS) Radiology Routine Screening for osteoporosis Asymptomatic menopause 1 Occurrences starting 01/29/2024 until 02/27/2025 [facility] Comment on above: 1 Occurrences starting 01/29/2024 until 02/27/2025 End: 12-26-2024 CBC panel - Blood by Automated count COMPLETE BLOOD COUNT Lab Routine Type 2 diabetes mellitus with hyperglycemia, with long-term current use of insulin (HCC) Essential hypertension Encounter for long-term current use of medication Every 6 months for 20 Occurrences starting 12/27/2023 until 12/26/2024 [facility] Comment on above: Every 6 months for 20 Occurrences starti ng 12/27/2023 until 12/26/2024 End: 12-26-2024 Comprehensive metabolic 2000 panel - Serum or Plasma COMPREHENSIVE METABOLIC PANEL Lab Routine Type 2 diabetes mellitus with hyperglycemia, with long-term current use of insulin (HCC) Essential hypertension Encounter for long-term current use of medication Every 6 months for 20 Occurrences starting 12/27/2023 until 12/26/2024 [facility] Comment on above: Every 6 months for 20 Occurrences starti ng 12/27/2023 until 12/26/2024 End: 01-07-2026 DBT Breast - bilateral screening JEWELL SCREENING W TITI Radiology Routine Encounter for screening mammogram for breast cancer 1 Occurrences starting 12/08/2024 until 01/07/2026 [facility] Work Phone: Comment on above: 1 Occurrences starting 12/08/2024 until 01/07/2026 End: 02-27-2025 DXA Skeletal system.axial Views for bone density DXA-AXIAL SKELETON Radiology Routine Screening for osteoporosis Asymptomatic menopause 1 Occurrences starting 01/29/2024 until 02/27/2025 [facility] Work Phone: Comment on above: 1 Occurrences starting 01/29/2024 until 02/27/2025 End: 12-26-2024 Hemoglobin A1c in Blood HEMOGLOBIN A1C Lab Routine Type 2 diabetes mellitus with hyperglycemia, with long-term current use of insulin (HCC) Encounter for long-term current use of medication Every 6 months for 20 Occurrences starting 12/27/2023 until 12/26/2024 [facility] Work Phone: Comment on above: Every 6 months for 20 Occurrences starti ng 12/27/2023 until 12/26/2024 Hemoglobin.gastroint es tinal.lower [Presence] in Stool by Immunoassay FECAL OCCULT BLOOD TEST Lab Routine Colon cancer screening Ordered: 02/15/2023 [facility] Work Phone: Comment on above: Ordered: 02/15/2023 Hemoglobin.gastroint es tinal.lower [Presence] in Stool by Immunoassay IMMUNOCHEMICAL FECAL OCCULT BLOOD TEST Lab Routine Screening for colon cancer Ordered: 08/03/2024 [facility] Work Phone: Comment on above: Ordered: 08/03/2024 End: 12-26-2024 Lipid 1996 panel - Serum or Plasma LIPID PANEL BASIC Lab Routine Type 2 diabetes mellitus with hyperglycemia, with long-term current use of insulin ([facility]) Pure hypercholesterolemia Essential hypertension Encounter for long-term current use of medication Every 6 months for 20 Occurrences starting 12/27/2023 until 12/26/2024 [facility] Comment on above: Every 6 months for 20 Occurrences starti ng 12/27/2023 until 12/26/2024 End: 12-26-2024 Magnesium [Mass/volume] in Serum or Plasma MAGNESIUM Lab Routine Encounter for long-term current use of medication Every 6 months for 30 Occurrences starting 12/27/2023 until 12/26/2024 [facility] Comment on above: Every 6 months for 30 Occurrences starti ng 12/27/2023 until 12/26/2024 End: 02-29-2024 JEWELL SCREENING JEWELL SCREENING Radiology Routine Encounter for screening mammogram for breast cancer 1 Occurrences starting 01/30/2023 until 02/29/2024 [facility] Work Phone: Comment on above: 1 Occurrences starting 01/30/2023 until 02/29/2024 End: 02-06-2025 MG Breast Screening JEWELL SCREENING Radiology Routine Encounter for screening mammogram for breast cancer 1 Occurrences starting 01/08/2024 until 02/06/2025 [facility] Work Phone: Comment on above: 1 Occurrences starting 01/08/2024 until 02/06/2025 End: 12-26-2024 Microalbumin/Creatinin e [Mass Ratio] in Urine ALBUMIN/CREATININE RATIO, URINE Lab Routine Type 2 diabetes mellitus with hyperglycemia, with long-term current use of insulin (HCC) Encounter for long-term current use of medication Positive for macroalbuminuria Every 6 months for 20 Occurrences starting 12/27/2023 until 12/26/2024 [facility] Comment on above: Every 6 months for 20 Occurrences starti ng 12/27/2023 until 12/26/2024 End: 03-30-2023 Screening mammography bi 2-view breast inc cad JEWELL SCREENING Radiology Routine Encounter for screening mammogram for breast cancer 1 Occurrences starting 02/28/2022 until 03/30/2023 [facility] Work Phone: Comment on above: 1 Occurrences starting 02/28/2022 until 03/30/2023 End: 12-26-2024 Thyrotropin [Units/volume] in Serum or Plasma THYROID STIMULATING HORMONE Lab Routine Pure hypercholesterolemia Essential hypertension Elevated TSH Every 6 months for 30 Occurrences starting 12/27/2023 until 12/26/2024 [facility] Comment on above: Every 6 months for 30 Occurrences starti ng 12/27/2023 until 12/26/2024 End: 02-17-2026 Thyrotropin [Units/volume] in Serum or Plasma THYROID STIMULATING HORMONE Lab Routine Acquired hypothyroidism Every 2 months for 60 Occurrences starting 02/17/2025 until 02/17/2026 [facility] Work Phone: Comment on above: Every 2 months for 60 Occurrences starti ng 02/17/2025 until 02/17/2026 End: 02-17-2026 Thyroxine (T4) free [Mass/volume] in Serum or Plasma T4 FREE/FREE THYROXINE Lab Routine Acquired hypothyroidism Every 2 months for 60 Occurrences starting 02/17/2025 until 02/17/2026 [facility] Comment on above: Every 2 months for 60 Occurrences starti ng 02/17/2025 until 02/17/2026 End: 12-26-2024 Urinalysis complete panel - Urine URINALYSIS, WITH MICROSCOPIC Lab Routine Positive for macroalbuminuria Every 6 months for 20 Occurrences starting 12/27/2023 until 12/26/2024 [facility] Comment on above: Every 6 months for 20 Occurrences starti ng 12/27/2023 until 12/26/2024 Urine culture [facility] Immunizations Immunization Date Immunization Notes Care Provider Nallely bingham 12-15-2024 zoster vaccine recombinant Rodrigo Jimenez MD Work Phone: [facility] 08-03-2024 influenza, high dose seasonal, preservative-free Jillian Mojica TRANSLATOR DEAF.REGISTERED PHLEBOTOMIST PART TIME Work Phone: [facility] 08-03-2024 influenza virus vacc ine, unspecified formulation Rodrigo Jimenez MD Work Phone: [facility] 07-04-2023 influenza (HD-IIV4) vaccine, age 65+ yr, high dose, quadrivalent, PF (FLUZONE HIGH-DOSE) Rodrigo Jimenez MD Work Phone: [facility] 07-04-2023 influenza virus vacc ine, unspecified formulation Rodrigo Jimenez MD Work Phone: [facility] 08-14-2022 COVID-19 booster vaccine, age 12+ yr, bivalent (PFIZER-BIONTNutrinia) Jillian Mojica TRANSLATOR DEAF.REGISTERED PHLEBOTOMIST PART TIME Work Phone: [facility] Work Phone: 08-14-2022 influenza, high-dose , quadrivalent vaccine (FLUZONE HIGH DOSE QUADRIVALENT) Jillian Mojica TRANSLATOR DEAF.REGISTERED PHLEBOTOMIST PART TIME Work Phone: [facility] Work Phone: 08-14-2022 influenza virus vacc ine, unspecified formulation Jessica Barajas [facility] 05-19-2021 influenza, high-dose , quadrivalent vaccine (FLUZONE HIGH DOSE QUADRIVALENT) Maggy Fritz [facility] Work Phone: 12-08-2020 Covid (Moderna) Dr. Rodrigo frances Work Phone: [facility] 05-26-2020 pneumococcal polysaccharide vaccine, 23 valent Maggy Fritz [facility] Work Phone: 05-22-2020 influenza, high dose seasonal, preservative-free Maggy Fritz MA [facility] 05-22-2020 influenza, high-dose , quadrivalent vaccine (FLUZONE HIGH DOSE QUADRIVALENT) Maggy Fritz [facility] Work Phone: 05-03-[address] Rodrigo Jimenez Work Phone: [facility] 05-03-2020 influenza, seasonal, injectable, preservative free Maggy Fritz [facility] Work Phone: 08-03-2019 influenza, high dose seasonal, preservative-free Maggy Fritz [facility] Work Phone: 04-27-2019 pneumococcal conjuga te vaccine, 13 valent Maggy Fritz [facility] 05-16-2018 influenza, high dose seasonal, preservative-free Maggy Fritz [facility] 06-30-2014 influenza, seasonal, injectable Maggy Fritz [facility] 06-29-2013 influenza virus vacc ine, unspecified formulation Maggy Fritz [facility] 06-21-2012 influenza virus vacc ine, unspecified formulation Maggykirit Fritz [facility] 05-04-2011 pneumococcal polysaccharide vaccine, 23 valent Maggy Fritz [facility] 07-13-2010 tetanus toxoid, redu martita diphtheria toxoid, and acellular pertussis vaccine, adsorbed Maggy Fritz [facility] Work Phone: Payers Date Payer Category Payer Self-pay [id number] 2021 Medicare [employer]NA MEDICARE [employer]NA GOLD PLUS [id number] 2021-Present [phone] [id number] [place] [id number] [place] [address] [id number] 2021 Medicare HUMANA MEDICARE HU[employer]NA GOLD PLUS [id number] 2021-Present [phone] [address] [address] [place] [address] [facility] [id number] 2021 Medicare (Managed Care) HUMANA G OLD PLUS [id number] 2021 Private Health Insurance [id number] Private Health Insurance [id number] Unknown [id number] Unknown [id number] Social History Date Type Detail Facility Start: 03-03-2012 End: 03-22-2025 Tobacco smoking status NHIS Never smoked tobacco [facility] Start: 05-19-2021 End: 02-17-2025 Alcohol intake Current non-drinker of alcohol (finding) [facility] Start: 01-20-2020 End: 08-07-2022 History SDOH Alcohol Frequency 1 [facility] Start: 01-20-2020 History SDOH Alcohol Std Drinks 98 [facility] Start: 01-20-2020 History SDOH Social Connections Phone 5 [facility] Start: 01-20-2020 History SDOH Social Connections Get Together 3 [facility] Start: 01-20-2020 End: 08-07-2022 History SDOH Social Connections Membership 2 [facility] Start: 01-20-2020 End: 02-27-2020 History SDOH Social Connections Living 4 [facility] Start: 01-20-2020 End: 08-07-2022 History SDOH Physical Activity DPW 0 [facility] Start: 01-20-2020 Education 16 [facility] [facility] Start: 1955 Sex Assigned At Female [facility] Start: 12-25-2021 Tobacco smoking status NHIS Unknown if ever smoked [facility] Work Phone: Start: 02-02-2022 End: 02-12-2022 Exposure to SARS-CoV-2 (event) Not sure [facility] Start: 03-03-2012 Tobacco use and exposure Smokeless tobacco non-user [facility] Start: 08-07-2022 End: 02-15-2023 History of Social function [facility] Start: 08-07-2022 End: 02-15-2023 Social connection and isolation panel [facility] Do you belong to any clubs or organizations such as orthodox groups, unions, fraternal or athletic groups, or school groups? No [facility] Are you now , , , , never or living with a partner? [facility] How often to you hav e a drink containing alcohol? Never [facility] How many standard dr inks containing alcohol do you have on a typical day? Patient does not drink [facility] Do you feel stress - tense, restless, nervous, or anxious, or unable to sleep at night because your mind is troubled all the time - these days [OSQ] Not at all [facility] (I/We) worried wheth er (my/our) food would run out before (I/we) got money to buy more. Never true [facility] Start: 04-26-2019 Gender identity Identifies as female gender (finding) [facility] Start: 04-26-2019 Sexual orientation Heterosexual (finding) [facility] How hard is it for y ou to pay for the very basics like food, housing, medical care, and heating Not very hard [facility] Work Phone: Do you feel stress - tense, restless, nervous, or anxious, or unable to sleep at night because your mind is troubled all the time - these days [OSQ] Only a little [facility] How hard is it for y ou to pay for the very basics like food, housing, medical care, and heating Somewhat hard [facility] (I/We) worried wheth er (my/our) food would run out before (I/we) got money to buy more. Sometimes true [facility] Medical Equipment Procedure Code Equipment Code Equipment Original Text Equipment Identifier Dates [id number], [id number] Start: 01-28-2020 End: 05-25-2024 Comment on above: [...] serious difficulty hearing No 12/22/2014 5:18 PM EDBrenda Garcia Cma No [facility] 12-22-2014 Are you blind, or do you have serious difficulty seeing, even when wearing glasses No 12/22/2014 5:18 PM Brenda Corado Cma No [facility] 12-22-2014 Do you have serious difficulty walking or climbing stairs No 12/22/2014 5:18 PM EDBrenda Garcia Cma No [facility] 12-22-2014 Do you have difficul ty dressing or bathing No 12/22/2014 5:18 PM EDBrenda Garcia Cma No [facility] 12-22-2014 Because of a physica l, mental, or emotional condition, do you have difficulty doing errands alone such as visiting a physician's office or shopping No 12/22/2014 5:18 PM EDBrenda Garcia Cma No [facility] Mental Status Date Assessment Result Facility 03-22-2025 Cognitive function Level Of Cons ciousness Awake;Alert;Appropriate;Fol lows Commands [facility] Work Phone: 12-22-2014 Because of a physica l, mental, or emotional condition, do you have serious difficulty concentrating, remembering, or making decisions No 12/22/2014 5:18 PM EDBrenda Garcia Cma No [facility] Clinical Notes 01-28-2020 to 03-23-2025 Note Date & Type Note Facility 03-23-2025 History and physi kayden note [facility] 03-22-2025 Discharge [address] [facility] 03-22-2025 Radiology Diagnostic study note [facility] Imaging Services [address] [place], [place] [id number] Chest 1 View (Portable) MR#: [id number] Acct: [id number] Name: BARBARA ALLEN Rep #: [id number] : 1955 F 69 From: Vijaya Batista MD PCP: Dr. Rodrigo Jimenez MD Status: [place] E ER Study:Chest 1 View (Portable) Date of Exam: 03/22/25 Exam# [id number] Ordering Dr: Rosy Jama DO PROCEDURE: CHEST 1 VIEW (PORTABLE) 03/22/2025 REASON FOR EXAM: SEPSIS TECHNIQUE: Frontal view of the chest. COMPARISON: None FINDINGS: Mild pulmonary edema although multifocal pneumonia not entirely excluded. No pleural effusion or pneumothorax. Moderate cardiomegaly. Calcified aortic arch. RAD/Chest 1 View (Portable) IMPRESSION: Mild pulmonary edema although multifocal pneumonia not entirely excluded. Moderate cardiomegaly. Reading Location: [facility] CC: Dr. Rodrigo Jimenez MD; Dr. Parminder Jama DO ~ Glaze Sprayer: Signed [facility] 03-22-2025 Discharge summary Note Date/Time March 22, 2025 11:15pm [facility] Medical Records Department [address] [place] [id number] Emergency Department Summary 03/22/25 MR#: [id number] Acct: [id number] Name: BARBARA ALLEN Rep #:[id number] : 1955 69 From: Parminder Jama DO PCP: Dr. Rodrigo Jimenez MD Status:RE G ER Location: ED ADDENDUM by Dr. Parminder Jama DO on 03/22/25 at 2315 At 11:15 PM reperfusion assessment was performed patient remains hypertensive there is concern for hypervolemic state therefore patient will not be given the full 30 cc/kg of IV fluids based on ideal body weight we will discontinue the 2500 mL and we will give her only 1 L of IV fluids. 03/22/25 2315<Electronically signed by Parminder Jama DO> Cosigner Signature (if applicable): cc: Dr. Rodrigo Jimenez MD ~* Signed HPI History of Present Illness Chief Complaint: Weakness Narrative Narrative: Patient is a 69-year-old female with past medical history of type 2 diabetes, hyperlipidemia, hypertension, MORGAN, CAD, cardiomyopathy, atrial fibrillation on Eliquis, GERD who presented to the emergency department with a chief complaint of generalized weakness and feeling unwell overall. Patient states that she hasbeen feeling not well for the last few days denies any recent sick contacts. [facility] Medical History Type 2 diabetes mellitus Mixed hyperlipidemia Atherosclerotic heart disease of [place] coronary artery without angina pectoris Essential hypertension Pulmonary hypertension assoc with unclear multi-factorial mechanisms MORGAN (obstructive sleep apnea) CAD (coronary artery disease) Cardiomyopathy History of left heart catheterization (LHC) (~01/27/21) Sleep apnea GERD (gastroesophageal reflux disease) Diabetes Home Medications ?Medication ?Instructions ?Recorded ?Last Taken ?Type felodipine 10 mg tablet,extended 20 mg PO DAILY High B P 12/14/19 05/13/21 10:00 History release 24 hr glimepiride 4 mg tablet 4 mg PO BIDCM Diabetes 12/1305/13/21 10:00 History omeprazole 20 mg capsule,delayed 20 mg PO DAILY GERD 0 12/14/19 05/13/21 10:00 History release multivitamin 1 tab PO DAILY SUPPLEMENT 05/13/21 10:00 History simvastatin 40 mg tablet 40 mg PO QHS #90 tabs 05/12/21 21:00 Rx insulin glargine 100 unit/mL (3 18 unit subcut QHS DM 12/25/21 Unknown History mL) subcutaneous pen ferrous sulfate 325 mg (65 mg 325 mg PO DAILY 07/09/23 Unknown History iron) tablet (FeroSul) furosemide 40 mg tablet See Rx Instructions .Route 1 10/29/22 Unknown Rx .COMPLEX #180 tabs cholecalciferol (vitamin D3) 50 50 mcg PO DAILY Unknown History mcg (2,000 unit) capsule apixaban 5 mg tablet (Eliquis) 5 mg PO BID #60 tabs Unknown Rx carvedilol 12.5 mg tablet See Rx Instructions .Route 1 09/26/23 Unknown Rx .COMPLEX #180 tabs hydralazine 25 mg tablet 25 mg PO TID #270 tabs 11/11 Unknown Rx potassium chloride 20 mEq 20 meq PO BID 02/04/25 Unkno wn History tablet,extended release (K-Tab) digoxin 125 mcg (0.125 mg) tablet 125 mcg PO DAILY #90 tabs 03/01/25 Unknown Rx isosorbide mononitrate 30 mg 30 mg PO DAILY #90 tabs 0 03/01/25 Unknown Rx tablet,extended release 24 hr Allergy/AdvReac Type Severity Reaction Status Date / Time lisinopril Allergy Laryngospas Verified 02/04/25 14:13 ms Family History Mother No history of heart disease Father No history of heart disease Surgical History History of tonsillectomy Social History Smoking Status: Never smoker alcohol intake: never substance use type: does not use ROS ROS ED ROS Narrative Constitutional: Complains of chills and generalized fatigue denies headache, lightness or dizziness Eyes: Denies double vision blurry vision Cardiovascular: Denies chest pain Respiratory: Denies shortness of breath Abdomen: Denies abdominal pain nausea vomiting diarrhea : Denies any urinary symptoms Neurological: Denies any numbness, weakness, tingling Musculoskeletal: Complains of left lower extremity redness EXAM Physical Exam Narrative Exam Narrative: General: Patient was lying in bed rest comfortably did not appear to be acute distress Head: Atraumatic, normocephalic Eyes: PERRL bilaterally, EOMI bilateral, no conjunctival injection noted Neck: Soft, supple, trachea midline Cardiovascular: Patient tachycardic with a irregular irregular rhythm Respiratory: Clear to auscultation bilaterally Abdomen: Soft, nondistended, no tenderness to palpation Extremities: +4/5 strength noted in the bilateral upper and lower extremities, patient has what appears to be lymphedema in her lower extremities Neurological: Patient follow commands and that she was at [facility] the year is 2024 Skin: Patient has evidence of cellulitis on the left lower extremity Const Vital Signs: 03/22/25 20:59 03/22/25 21:00 03/22/25 21:02 Temperature 99.7 F H 99.7 F H Temperature Source Oral Oral Pulse Rate 102 H 105 H Respiratory Rate 30 H 32 H Respiratory Effort Normal Respiratory Pattern Normal Blood Pressure 156/80 H 140/80 H Blood Pressure Mean 105 100 Pulse Ox 100 100 Oxygen Delivery Method Room Air Room Air 03/22/25 21:10 03/22/25 21:18 03/22/25 22:48 Temperature 100.5 F H Temperature Source Oral Pulse Rate 85 Respiratory Rate 24 H Respiratory Effort Respiratory Pattern Blood Pressure 143/84 H Blood Pressure Mean 103 Pulse Ox 95 100 Oxygen Delivery Method Room Air Room Air Room Air Sepsis Attestation Sepsis Organ Dysfunction Criteria Present: Lactic Acid > 2 mmol/L MDM MDM MDM Narrative Medical decision making narrative: Patient is a 69-year-old female who presented to the emerged part with chief complaint of generalized weakness and overall not feeling well. Protocol was entered and started prior to my evaluation. On the differential diagnosis includes but not limited to cellulitis, UTI, pneumonia, electrolyte abnormality,anemia. Once workup is obtained and reviewed she will be reevaluated. Patient will be given 30 cc/kg bolus of IV fluids based on ideal body weight as her BMI is greater than 40 she will be given a total of 2500 mL. Did review her previous echocardiogram from 04/21/2021 which showed ejection fraction of of 55% and they were unable to do assess diastolic dysfunction at that point in time. Patient will be given 2 g Rocephin as well which was ordered at 2217. Patient CBC reviewed and showed a leukocytosis of 26,000, hemoglobin 11.9, platecount of 200. Patient's INR 1.9, PT of 22. Patient sodium was 137, potassium normal at 4.1, patient had anion gap of 16 with a carbon dioxide level low at 20.2. Patient creatinine was 1.24 she has underlying chronic kidney disease. Patient glucose was 120, lactic acid 2.5. Patient's AST and ALT are 21 and 23 respectively. Patient's proBNP was 31,913 which is consistent with her chest x-ray which was reviewed by myself and by radiology which showed concern for interstitial edema vascular congestion as well as possible multifocal pneumonia. Given concern for also multifocal pneumonia azithromycin was added on as well at 2225. Patient was noted be febrile was given a gram of Tylenol. Patient's EKG reviewed and showed atrial fibrillation with a rapid ventricular response of141 bpm however her heart rate has now normalized without any other interventions outside of Tylenol and fluids. There is also concern that she hasa left lower extremity cellulitis. Did discuss case with hospitalist Dr. Archer who accept patient for admission. Notified the patient and family was at bedside they are agreeable to plan all question concerns answered. Lab Data Labs: Laboratory Results - last 24 hr 03/22/25 03/22/25 03/22/25 21:20 21:20 21:20 WBC Cancelled 26.6 H Corrected WBC Cancelled RBC Cancelled 4.11 L Hgb Cancelled Hct MCV MCH MCHC RDW Std Deviation RDW Coeff of Rocio Plt Count MPV Immature Gran % (Auto) Neut % (Auto) Lymph % (Auto) [place] % (Auto) Eos % (Auto) Baso % (Auto) Absolute Neuts (auto) Absolute Lymphs (auto) Total Counted Neutrophils % (Manual) Band Neutrophils % Lymphocytes % (Manual) Monocytes % (Manual) Eosinophils % (Manual) Basophils % (Manual) Metamyelocytes % Myelocytes % Promyelocytes % Blast Cells % Plasma Cell % (Manual) Other Cells % Nucleated RBC % Nucleated RBCs/100 WBC Differential Comment Diff Path Review Hypersegmented Neuts Atypical Lymphocytes Reactive Lymphocytes Smudge Cells Toxic Granulation Toxic Vacuolation Dohle Bodies Goran Rods Platelet Estimate Plt Morphology Comment RBC Morphology Polychromasia Hypochromasia Basophilic Stippling Anisocytosis Microcytosis Macrocytosis Spherocytes Sickle Cells Target Cells Tear Drop Cells Ovalocytes Stomatocytes Phan-Quintana Bodies [place] Cells Bite Cells Crenated Cell Acanthocytes (Spur) Rouleaux Schistocytes PT INR APTT Sodium Potassium Chloride Carbon Dioxide Anion Gap BUN Creatinine Estim Creat Clear Calc Est GFR (MDRD) Non-Af BUN/Creatinine Ratio Glucose Lactic Acid Calcium Total Bilirubin AST ALT Alkaline Phosphatase NT pro BNP II Total Protein Albumin Globulin Albumin/Globulin Ratio 03/22/25 03/22/25 03/22/25 21:20 21:20 21:20 WBC Corrected WBC RBC Hgb 11.9 L Hct Cancelled 36.7 L MCV Cancelled 89.3 MCH Cancelled MCHC RDW Std Deviation RDW Coeff of Rocio Plt Count MPV Immature Gran % (Auto) Neut % (Auto) Lymph % (Auto) [place] % (Auto) Eos % (Auto) Baso % (Auto) Absolute Neuts (auto) Absolute Lymphs (auto) Total Counted Neutrophils % (Manual) Band Neutrophils % Lymphocytes % (Manual) Monocytes % (Manual) Eosinophils % (Manual) Basophils % (Manual) Metamyelocytes % Myelocytes % Promyelocytes % Blast Cells % Plasma Cell % (Manual) Other Cells % Nucleated RBC % Nucleated RBCs/100 WBC Differential Comment Diff Path Review Hypersegmented Neuts Atypical Lymphocytes Reactive Lymphocytes Smudge Cells Toxic Granulation Toxic Vacuolation Dohle Bodies Goran Rods Platelet Estimate Plt Morphology Comment RBC Morphology Polychromasia Hypochromasia Basophilic Stippling Anisocytosis Microcytosis Macrocytosis Spherocytes Sickle Cells Target Cells Tear Drop Cells Ovalocytes Stomatocytes Phan-Quintana Bodies [place] Cells Bite Cells Crenated Cell Acanthocytes (Spur) Rouleaux Schistocytes PT INR APTT Sodium Potassium Chloride Carbon Dioxide Anion Gap BUN Creatinine Estim Creat Clear Calc Est GFR (MDRD) Non-Af BUN/Creatinine Ratio Glucose Lactic Acid Calcium Total Bilirubin AST ALT Alkaline Phosphatase NT pro BNP II Total Protein Albumin Globulin Albumin/Globulin Ratio 03/22/25 03/22/25 03/22/25 21:20 21:20 21:20 WBC Corrected WBC RBC Hgb Hct MCV MCH 29.0 MCHC Cancelled 32.4 RDW Std Deviation Cancelled 45.5 H RDW Coeff of Rocio Cancelled Plt Count MPV Immature Gran % (Auto) Neut % (Auto) Lymph % (Auto) [place] % (Auto) Eos % (Auto) Baso % (Auto) Absolute Neuts (auto) Absolute Lymphs (auto) Total Counted Neutrophils % (Manual) Band Neutrophils % Lymphocytes % (Manual) Monocytes % (Manual) Eosinophils % (Manual) Basophils % (Manual) Metamyelocytes % Myelocytes % Promyelocytes % Blast Cells % Plasma Cell % (Manual) Other Cells % Nucleated RBC % Nucleated RBCs/100 WBC Differential Comment Diff Path Review Hypersegmented Neuts Atypical Lymphocytes Reactive Lymphocytes Smudge Cells Toxic Granulation Toxic Vacuolation Dohle Bodies Goran Rods Platelet Estimate Plt Morphology Comment RBC Morphology Polychromasia Hypochromasia Basophilic Stippling Anisocytosis Microcytosis Macrocytosis Spherocytes Sickle Cells Target Cells Tear Drop Cells Ovalocytes Stomatocytes Phan-Quintana Bodies [place] Cells Bite Cells Crenated Cell Acanthocytes (Spur) Rouleaux Schistocytes PT INR APTT Sodium Potassium Chloride Carbon Dioxide Anion Gap BUN Creatinine Estim Creat Clear Calc Est GFR (MDRD) Non-Af BUN/Creatinine Ratio Glucose Lactic Acid Calcium Total Bilirubin AST ALT Alkaline Phosphatase NT pro BNP II Total Protein Albumin Globulin Albumin/Globulin Ratio 03/22/25 03/22/25 03/22/25 21:20 21:20 21:20 WBC Corrected WBC RBC Hgb Hct MCV MCH MCHC RDW Std Deviation RDW Coeff of Roico 13.9 Plt Count Cancelled 200 MPV Cancelled 11.4 Immature Gran % (Auto) Cancelled Neut % (Auto) Lymph % (Auto) [place] % (Auto) Eos % (Auto) Baso % (Auto) Absolute Neuts (auto) Absolute Lymphs (auto) Total Counted Neutrophils % (Manual) Band Neutrophils % Lymphocytes % (Manual) Monocytes % (Manual) Eosinophils % (Manual) Basophils % (Manual) Metamyelocytes % Myelocytes % Promyelocytes % Blast Cells % Plasma Cell % (Manual) Other Cells % Nucleated RBC % Nucleated RBCs/100 WBC Differential Comment Diff Path Review Hypersegmented Neuts Atypical Lymphocytes Reactive Lymphocytes Smudge Cells Toxic Granulation Toxic Vacuolation Dohle Bodies Goran Rods Platelet Estimate Plt Morphology Comment RBC Morphology Polychromasia Hypochromasia Basophilic Stippling Anisocytosis Microcytosis Macrocytosis Spherocytes Sickle Cells Target Cells Tear Drop Cells Ovalocytes Stomatocytes Phan-Quintana Bodies [place] Cells Bite Cells Crenated Cell Acanthocytes (Spur) Rouleaux Schistocytes PT INR APTT Sodium Potassium Chloride Carbon Dioxide Anion Gap BUN Creatinine Estim Creat Clear Calc Est GFR (MDRD) Non-Af BUN/Creatinine Ratio Glucose Lactic Acid Calcium Total Bilirubin AST ALT Alkaline Phosphatase NT pro BNP II Total Protein Albumin Globulin Albumin/Globulin Ratio 03/22/25 03/22/25 03/22/25 21:20 21:20 21:20 WBC Corrected WBC RBC Hgb Hct MCV MCH MCHC RDW Std Deviation RDW Coeff of Rocio Plt Count MPV Immature Gran % (Auto) 1.800 H Neut % (Auto) Cancelled 92.9 H Lymph % (Auto) Cancelled 2.3 L [place] % (Auto) Cancelled Eos % (Auto) Baso % (Auto) Absolute Neuts (auto) Absolute Lymphs (auto) Total Counted Neutrophils % (Manual) Band Neutrophils % Lymphocytes % (Manual) Monocytes % (Manual) Eosinophils % (Manual) Basophils % (Manual) Metamyelocytes % Myelocytes % Promyelocytes % Blast Cells % Plasma Cell % (Manual) Other Cells % Nucleated RBC % Nucleated RBCs/100 WBC Differential Comment Diff Path Review Hypersegmented Neuts Atypical Lymphocytes Reactive Lymphocytes Smudge Cells Toxic Granulation Toxic Vacuolation Dohle Bodies Goran Rods Platelet Estimate Plt Morphology Comment RBC Morphology Polychromasia Hypochromasia Basophilic Stippling Anisocytosis Microcytosis Macrocytosis Spherocytes Sickle Cells Target Cells Tear Drop Cells Ovalocytes Stomatocytes Phan-Quintana Bodies [place] Cells Bite Cells Crenated Cell Acanthocytes (Spur) Rouleaux Schistocytes PT INR APTT Sodium Potassium Chloride Carbon Dioxide Anion Gap BUN Creatinine Estim Creat Clear Calc Est GFR (MDRD) Non-Af BUN/Creatinine Ratio Glucose Lactic Acid Calcium Total Bilirubin AST ALT Alkaline Phosphatase NT pro BNP II Total Protein Albumin Globulin Albumin/Globulin Ratio 03/22/25 03/22/25 03/22/25 21:20 21:20 21:20 WBC Corrected WBC RBC Hgb Hct MCV MCH MCHC RDW Std Deviation RDW Coeff of Rocio Plt Count MPV Immature Gran % (Auto) Neut % (Auto) Lymph % (Auto) [place] % (Auto) 2.7 Eos % (Auto) Cancelled 0.0 Baso % (Auto) Cancelled 0.3 Absolute Neuts (auto) Cancelled Absolute Lymphs (auto) Total Counted Neutrophils % (Manual) Band Neutrophils % Lymphocytes % (Manual) Monocytes % (Manual) Eosinophils % (Manual) Basophils % (Manual) Metamyelocytes % Myelocytes % Promyelocytes % Blast Cells % Plasma Cell % (Manual) Other Cells % Nucleated RBC % Nucleated RBCs/100 WBC Differential Comment Diff Path Review Hypersegmented Neuts Atypical Lymphocytes Reactive Lymphocytes Smudge Cells Toxic Granulation Toxic Vacuolation Dohle Bodies Goran Rods Platelet Estimate Plt Morphology Comment RBC Morphology Polychromasia Hypochromasia Basophilic Stippling Anisocytosis Microcytosis Macrocytosis Spherocytes Sickle Cells Target Cells Tear Drop Cells Ovalocytes Stomatocytes Phan-Quintana Bodies [place] Cells Bite Cells Crenated Cell Acanthocytes (Spur) Rouleaux Schistocytes PT INR APTT Sodium Potassium Chloride Carbon Dioxide Anion Gap BUN Creatinine Estim Creat Clear Calc Est GFR (MDRD) Non-Af BUN/Creatinine Ratio Glucose Lactic Acid Calcium Total Bilirubin AST ALT Alkaline Phosphatase NT pro BNP II Total Protein Albumin Globulin Albumin/Globulin Ratio 03/22/25 03/22/25 03/22/25 21:20 21:20 21:20 WBC Corrected WBC RBC Hgb Hct MCV MCH MCHC RDW Std Deviation RDW Coeff of Rocio Plt Count MPV Immature Gran % (Auto) Neut % (Auto) Lymph % (Auto) [place] % (Auto) Eos % (Auto) Baso % (Auto) Absolute Neuts (auto) 24.7 H Absolute Lymphs (auto) Cancelled 0.62 L Total Counted Cancelled Neutrophils % (Manual) Cancelled Band Neutrophils % Cancelled Lymphocytes % (Manual) Cancelled Monocytes % (Manual) Cancelled Eosinophils % (Manual) Cancelled Basophils % (Manual) Cancelled Metamyelocytes % Cancelled Myelocytes % Cancelled Promyelocytes % Cancelled Blast Cells % Cancelled Plasma Cell % (Manual) Cancelled Other Cells % Cancelled Nucleated RBC % Cancelled 0 Nucleated RBCs/100 WBC Cancelled Differential Comment Cancelled Diff Path Review Cancelled Hypersegmented Neuts Cancelled Atypical Lymphocytes Cancelled Reactive Lymphocytes Cancelled Smudge Cells Cancelled Toxic Granulation Cancelled Toxic Vacuolation Cancelled Dohle Bodies Cancelled Goran Rods Cancelled Platelet Estimate Cancelled Plt Morphology Comment Cancelled RBC Morphology Cancelled Polychromasia Hypochromasia Basophilic Stippling Anisocytosis Microcytosis Macrocytosis Spherocytes Sickle Cells Target Cells Tear Drop Cells Ovalocytes Stomatocytes Phan-Quintana Bodies [place] Cells Bite Cells Crenated Cell Acanthocytes (Spur) Rouleaux Schistocytes PT INR APTT Sodium Potassium Chloride Carbon Dioxide Anion Gap BUN Creatinine Estim Creat Clear Calc Est GFR (MDRD) Non-Af BUN/Creatinine Ratio Glucose Lactic Acid Calcium Total Bilirubin AST ALT Alkaline Phosphatase NT pro BNP II Total Protein Albumin Globulin Albumin/Globulin Ratio 03/22/25 21:20 WBC Corrected WBC RBC Hgb Hct MCV MCH MCHC RDW Std Deviation RDW Coeff of Rocio Plt Count MPV Immature Gran % (Auto) Neut % (Auto) Lymph % (Auto) [place] % (Auto) Eos % (Auto) Baso % (Auto) Absolute Neuts (auto) Absolute Lymphs (auto) Total Counted Neutrophils % (Manual) Band Neutrophils % Lymphocytes % (Manual) Monocytes % (Manual) Eosinophils % (Manual) Basophils % (Manual) Metamyelocytes % Myelocytes % Promyelocytes % Blast Cells % Plasma Cell % (Manual) Other Cells % Nucleated RBC % Nucleated RBCs/100 WBC Differential Comment Diff Path Review Hypersegmented Neuts Atypical Lymphocytes Reactive Lymphocytes Smudge Cells Toxic Granulation Toxic Vacuolation Dohle Bodies Goran Rods Platelet Estimate Plt Morphology Comment RBC Morphology Cancelled Polychromasia Cancelled Hypochromasia Cancelled Basophilic Stippling Cancelled Anisocytosis Cancelled Microcytosis Cancelled Macrocytosis Cancelled Spherocytes Cancelled Sickle Cells Cancelled Target Cells Cancelled Tear Drop Cells Cancelled Ovalocytes Cancelled Stomatocytes Cancelled Phan-Quintana Bodies Cancelled [place] Cells Cancelled Bite Cells Cancelled Crenated Cell Cancelled Acanthocytes (Spur) Cancelled Rouleaux Cancelled Schistocytes Cancelled PT 22.0 H INR 1.9 APTT 42.2 H Sodium 137 Potassium 4.1 Chloride 101 Carbon Dioxide 20.2 L Anion Gap 16 H BUN 31 H Creatinine 1.24 H Estim Creat Clear Calc 52.99 Est GFR (MDRD) Non-Af 47 L BUN/Creatinine Ratio 25.0 H Glucose 120 H Lactic Acid 2.5 H* Calcium 9.4 Total Bilirubin 0.91 AST 61 H ALT 23 Alkaline Phosphatase 108 [place] [address] H Total Protein 7.9 Albumin 4.0 Globulin 3.9 Albumin/Globulin Ratio 1.0 Radiography Diagnostic Testing: Clinical Impression(s) from Imaging Studies Chest X-Ray 03/22/25 21:44 IMPRESSION: Mild pulmonary edema although multifocal pneumonia not entirely excluded. Moderate cardiomegaly. Reading Location: [facility] Discharge Plan Triage Chief Complaint: Weakness Other Complaint: Cellulitis ED Provider: Parminder Jama Dx/Rx/DC Orders Clinical Impression: Atrial fibrillation with rapid ventricular response, Cardiomyopathy, Type 2 diabetes mellitus, Cellulitis of left leg, CHF (congestive heart failure), Multifocal pneumonia Prescriptions: No Action simvastatin 40 mg tablet 40 mg PO QHS Qty: 90 3RF ferrous sulfate [FeroSul] 325 mg (65 mg iron) tablet 325 mg PO DAILY cholecalciferol (vitamin D3) 50 mcg (2,000 unit) capsule 50 mcg PO DAILY potassium chloride [K-Tab] 20 mEq tablet extended release 20 meq PO BID glimepiride 4 MG tablet 4 mg PO BIDCM omeprazole 20 MG capsule,delayed release(DR/EC) 20 mg PO DAILY felodipine 10 MG tablet extended release 24 hr 20 mg PO DAILY insulin glargine 100 unit/mL (3 mL) insulin pen 18 unit subcut QHS multivitamin Tablet 1 tab PO DAILY furosemide 40 mg tablet See Rx Instructions .ROUTE .COMPLEX Qty: 180 3RF Dose Instruction: TAKE 1 TABLET TWICE DAILY Rx Instructions: TAKE 1 TABLET TWICE DAILY Eliquis 5 mg tablet 5 mg PO BID Qty: 60 11RF carvedilol 12.5 mg tablet See Rx Instructions .ROUTE .COMPLEX Qty: 180 3RF Dose Instruction: TAKE 1 TABLET TWICE DAILY, MUST ADMINISTER WITH MEALS, FOOD Rx Instructions: TAKE 1 TABLET TWICE DAILY, MUST ADMINISTER WITH MEALS, FOOD hydralazine 25 mg tablet 25 mg PO TID Qty: 270 3RF isosorbide mononitrate 30 mg tablet extended release 24 hr 30 mg PO DAILY Qty: 90 3RF digoxin 125 mcg (0.125 mg) tablet 125 mcg PO DAILY Qty: 90 3RF Primary Care Provider: Rodrigo Jimenez Referrals: Rodrigo Jimenez MD [Primary Care Provider] - Print Language: Costa Rican Disposition Disposition: Acute Care Hospital [facility] What to do if you have Problems For any increased pain, shortness of breath, bleeding, nausea or vomiting, chestpain, or any unexpected problems, contact your Primary Care Provider. Call [facility] ([phone]) or report to the closest Emergency Room. Call 911 if necessary. 03/22/25 4880 <Electronically signed by Parminder Jama DO> Cosigner Signature (if applicable): CC: Dr. Rodrigo Jimenez MD ~ Signed [facility] Work Phone: 1(791) 811-475306-18-2025 Instructions* Patient Instructions* Rodrigo Jimenez MD - 02/17/2025 10:36 AM EDT - Start levothyroxine 25 mcg once daily; prescription sent to [facility] for a 90-day supply - Start empagliflozin (Jardiance) 10 mg once daily; 30-day supply with 5 refills at [facility]--drink plenty of fluids and report [...] 6-month check in December documented in this encounterSelect Medical Ohiohealth Rehabilitation Hospital06-18-2025 NoteHNO ID: [id number] Author: RODRIGO JIMENEZ MD Service: ? Author Type: Physician Type: Progress Notes Filed: 03/12/2025 01:30 Note Text: This note was created using SynGenriter. 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 She reports that [...] taking: Reported on 02/17/2025) blood sugar diagnostic (Ablative SolutionsUCH ULTRA TEST) test strip Use as instructed [...] Abs Lymph 1.00 - 4.00 k/uL 1.13 Pacific% % 7.2 Abs Pacific <0.87 k/uL 0.5 (more content not included)...[facility] 02-17-2025 History of Present illness Narrative* Rodrigo Jimenez MD - 02/17/2025 10:11 AM EDT This note was created using SynGenriter. 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 She reports that her blood glucose levels have been stable, with no episodes of hypoglycemia or hyperglycemia. Recent lab results show a slight decrease in hematocrit, but hemoglobin and RBC counts are within normal limits. Barbara inquires about the need for iron supplementation, as she is not currently takingany. Liver function tests reveal a mild elevation in alkaline phosphatase, but other liver enzymes are normal. Blood glucose is 110 mg/dL, and A1c has improved from 8.9% to 8.2%. Thyroid function tests indicate a slightly underactive thyroid, with TSH levels fluctuating over the past year. Barbara denies symptoms of hypothyroidism, such as constipation, fatigue, or bradycardia. Magnesium levels areslightly below normal, and Barbara is not taking [...] taking: Reported on 02/17/2025) blood sugar diagnostic (Ablative SolutionsUCH ULTRA TEST) test strip Use as instructed [...] Abs Lymph 1.00 - 4.00 k/uL 1.13 Pacific% % 7.2 Abs Pacific <0.87 k/uL 0.55 Eosin% % 2.2 Abs [...] Negative Ketones, Urine Negative Negative Negative Specific Snowflake, Ur 1.005 - 1.030 1.017 1.013 Hemoglobin/Blood,Ur [...] renal protection and glycemic control; potential side effectsinclude increased risk of yeast infections, dehydration, and [...] levels are within normal range. - Continue zbad-cpr-ezxewrl vitamin D supplementation. - Recheck vitamin D levels in July. # Essential hypertension (I10) - Blood pressure well-controlled on current regimen including Plendil. - Refill for Plendil sent to [facility]. - Monitor blood pressure regularly. # [...] omeprazole. - Refill for omeprazole sent to [facility]. # Hypomagnesemia (E83.42) - Magnesium level [...] physical activity and a balanced diet. Rodrigo Jimenez MD Recording using [employer] software for draft documentation of the visit was discussed with the patient/authorized customer operations representative; all questions welcomed and answered. Patient/authorized customer operations representative agreed to proceed * Danny Sampson LPN - 02/17/2025 10:00 AM EDT Last seen eye doctor x 1 year ago at [facility]- Last seen [facility] on 02/04/25 documented in this encounterSelect Medical Ohiohealth Rehabilitation Hospital06-18-2025 NoteHNO ID: [id number] Author: DANNY SAMPSON LPN Service: ? Author Type: LICENSED NURSE Type: Progress Notes Filed: 03/12/2025 01:30 Note Text: Last seen eye doctor x 1 year ago at [facility]- Last seen [facility] on 02/04/25[facility] 02-04-2025 Evaluation note* Diagnosis Onset Date Resolution Status Admit Date Atrial fibrillation acute February 04, 2025 2:09pm Essential hypertension acute 2024 2:09pm Mixed hyperlipidemia acute February 04, 2025 2:09pm MORGAN (obstructive sleep apnea) acute February 04, 2025 2:09pm Pulmonary hypertension assoc with unclear multi-factorial mechanisms acute February 04, 2025 2 :09pm Atrial fibrillation acute March 22, 2025 11:35pm Atrial fibrillation with rap id ventricular response acute March 22, 2025 11:35pm Cellulitis of left leg acute 2024 11:35pm CHF (congestive heart failure) acute March 22, 2025 11:35pm Essential hypertension acute 2024 11:35pm Mixed hyperlipidemia acute March 22, 2025 11:35pm Multifocal pneumonia acute March 22, 2025 11:35pm Type 2 diabetes mellitus acute March 22, 2025 11:35pm Cardiomyopathy chronic March 22, 2025 11:35pm GERD (gastroesophageal reflu x disease) chronic March 22, 2025 11:35pm [facility] Work Phone: 1(279) 722-644006-03-2025 NoteHNO ID: [id number] Author: JOSETTE SALCEDO, RN Service: ? Author Type: Registered Nurse [...] Josette Salcedo RN February 02, 2025 10:35 [facility]06-03-2025 History of Present illness Narrative* Josette Salcedo RN - 02/02/2025 10:35 AM EDT Value Based Care Coordination Chart Review Provider [...] 02, 2025 10:35 AM documented in this encounterSelect Medical Ohiohealth Rehabilitation Hospital06-03-2025 NotePatient Outreach (AMBCMG) JYOTIBARBARA Edie ([id number]) 1955 F Date Time Provider Department 02/02/25 JOSETTE SALCEDO During your visit today, we recorded the [...] Date Reviewed: 08/03/2024 Reviewed by: Jillian Mojica APRN.REGISTERED PHLEBOTOMIST PART TIME - Fully Assessed Reason for Visit: Care [...] every other day. - blood sugar diagnostic (ULURU ULTRA TEST) test strip Use as instructed [...] 08/03/2024 Encounter Status:Closed by JOSETTE SALCEDO on 02/02/25[facility]06-02-2025 Telephone encounter Note* Telephone Encounter - Jillian Mojica APRN.CNS - 02/01/2025 3:46 PM EDT rx sent. [facility]06-02-2025 Miscellaneous Notes* Telephone Encounter - Jillian Mojica APRN.CNS - 02/01/2025 3:46 PM EDT rx sent. * Telephone Encounter - Pepper Sharma LPN - 02/01/2025 3:12 PM EDT Prescription Refill Information The patient has been [...] 01, 2025 3:16 PM documented in this encounterSelect Medical Ohiohealth Rehabilitation Hospital06-02-2025 Telephone encounter Note * Telephone Encounter - Pepper Sharma LPN - 02/01/2025 3:12 PM EDT Prescription Refill Information The patient has been [...] Sharma LPN February 01, 2025 3:16 PM [facility]05-30-2025 Telephone encounter Note* Telephone Encounter - Pepper Sharma LPN - 01/29/2025 4:00 PM EDT Prescription Refill Information The patient has been [...] Sharma LPN January 29, 2025 4:00 PM [facility]05-30-2025 Miscellaneous Notes* Telephone Encounter - Pepper Sharma LPN - 01/29/2025 4:00 PM EDT Prescription Refill Information The patient has been [...] 29, 2025 4:00 PM documented in this encounterSelect Medical Ohiohealth [facility] Hospital05-30-2025 Telephone encounter Note * Telephone Encounter - Pepper Sharma LPN - 01/29/2025 3:59 PM EDT Prescription Refill Information The patient has been [...] Sharma LPN January 29, 2025 3:59 PM [facility]05-30-2025 Miscellaneous Notes* Telephone Encounter - Pepper Sharma LPN - 01/29/2025 3:59 PM EDT Prescription Refill Information The patient has been [...] 29, 2025 3:59 PM documented in this encounterSelect Medical Ohiohealth [facility] Hospital05-16-2025 Telephone encounter Note * Telephone Encounter - Rodrigo Jimenez MD - 01/15/2025 7:00 PM EDT Filed [facility]05-16-2025 Miscellaneous Notes* Telephone Encounter - Rodrigo Jimenez MD - 01/15/2025 7:00 PM EDT Filed documented in this encounterSelect Medical Ohiohealth Rehabilitation Hospital04-18-2025 Telephone encounter Note * Telephone Encounter - Gillian Garcia LPN - 12/18/2024 2:00 PM EDT Prescription Refill Information The patient has been [...] Garcia LPN December 18, 2024 2:00 PM [facility]04-18-2025 Miscellaneous Notes* Telephone Encounter - Gillian Garcia LPN - 12/18/2024 2:00 PM EDT Prescription Refill Information The patient has been [...] 18, 2024 2:00 PM documented in this encounterSelect Medical Ohiohealth Rehabilitation Hospital04-16-2025 History of Present illness Narrative* Vik Corey RPh - 12/16/2024 3:58 PM EDT Primary Care Pharmacy Panel Management This patient has been identified through Specialty Integration/Value-Based Operations Diabetes Registry Review by the primary care pharmacy team. Patient identified to likely benefit from pharmacy management. Attempted to contacted patient discuss consult agreement/services, and to schedule initial appointment however, patient was unable to bereached at this time. Will re- attempt to reach patient at later time. If unable to be reached on follow up attempt, will plan to place referral for assistance with scheduling from call center thereafter. Thank you, Vik Corey PharmD, FLORESITACP documented in this encounterSelect Medical Ohiohealth Rehabilitation Hospital04-16-2025 NoteHNO ID: [id number] Author: VIK COREY RPh Service: ? Author [...] pharmacy services. Thank you, Vik Corey PharmD, YOBANYUniversity Hospitals [facility] System04-16-2025 NoteHNO ID: [id number] Author: VIK COREY RPh Service: ? Author [...] center thereafter. Thank you, Vik Corey PharmD, YOBANYUniversity Hospitals Health System04-16-2025 NotePatient Outreach (PMSTOW) BARBARA ALLEN ([id number]) 1955 F Date Time Provider Department 12/16/24 [...] center thereafter. Thank you, Vik Corey PharmD, Vik Banks RP 12/18/2024 12:23 PM Signed Re-contacted patient again [...] pharmacy services. Thank you, Vik Corey PharmD, YOBANY Allergies As of Date: 12/16/2024 Noted Allergy Reaction LISINOPRIL 03/10/2014 3 - Cough Date Reviewed: 08/03/2024 Reviewed by: Jillian Mojica APRN.REGISTERED PHLEBOTOMIST PART TIME - Fully Assessed Reason for Visit: Care Coordination [6931] Cmt: Panel Management Review for Pharmacist Referral [...] INSULIN PEN NEEDLE UF) 31 gauge x 01/15" Use 1 new pen needle with each [...] every other day. - blood sugar diagnostic (Ablative SolutionsUCH ULTRA TEST) test strip Use as instructed [...] 08/03/2024 Encounter Status:Closed by VIK COREY on 12/16/24[facility] 12-08-2024 NotePatient Outreach (INTMWS) BARBARA ALLEN ([id number]) 1955 F Date Time Provider Department 12/08/24 RODRIGO JIMENEZ INTMWS During your visit today, we recorded the following information about you: Allergies As of Date: 12/08/2024 Noted Allergy Reaction LISINOPRIL 03/10/2014 3 - Cough Date Reviewed: 08/03/2024 Reviewed by: Jillian Mojica APRN.REGISTERED PHLEBOTOMIST PART TIME - Fully Assessed Visit Diagnosis:Encounter for screening mammogram for breast cancer [Z12.31] Order(s):[facility] SCREENING Jhonny WALLS [[id number]] Order #: [id number] FUTURE Prescriptions as of 01/08/2025 - potassium [...] every other day. - blood sugar diagnostic (Ablative SolutionsUCH ULTRA TEST) test strip Use as instructed [...] Chronic anticoagulation [Z79.01] 08/03/2024 Encounter Status:Closed by [employer]SOHAM on 01/08/25[facility] 11-18-2024 NoteHNO ID: [id number] Author: VANESSA DE LA ROSA MA Service: ? Author Type: Pill Packer Type: Progress Notes Filed: 11/18/2024 17:06 Note Text: POPULATION HEALTH NAVIGATION OUTREACH Action/FYI Patient replies via mychart declines scheduling MyChart message sent to patient Reason for Outreach Returned Call/MyChart Patient Contacted: Spoke to patient/parent/or legal guardian Patient identified by name and date of : Yes Returned call/MyChart actions taken: MyChart message sent Patient declined: Patient will contact office directly to schedule Navigation Signature: Vanessa Navarro MA November 18, 2024 5:03 [facility]03-19-2025 NoteHNO ID: [id number] Author: VANESSA DE LA ROSA MA Service: ? Author Type: Pill Packer Type: Progress Notes Filed: 11/18/2024 10:49 Note Text: POPULATION HEALTH NAVIGATION OUTREACH Action/FYI Last Wellness exam: 01.29.2024 Last OV: 12. Upcoming follow up noted 6. Mammo: due since 2015 CRCS: due since 2021 - FOBT last completed A1c: due since 10/2024 KED: UACR and CMP due Diabetic Eye exam: Due . - last completed at [facility] Reason for Outreach Care Gap/HCC or Scheduling Wellness Visits Care Gaps due: Medicare Annual Wellness Visit Breast Cancer Screening Colorectal Cancer Screening Diabetic Eye Exam HBA1C KED Patient Contacted: Unable or unnecessary to reach patient: Left message MyChart message sent Updated appointment notes Navigation Signature: Vanessa Navarro MA November 18, 2024 9:30 [facility]03-19-2025 History of Present illness Narrative* Vanessa De La Rosa MA - 11/18/2024 9:30 AM EDT POPULATION HEALTH NAVIGATION OUTREACH Action/FYI Last Wellness exam: 01.29.2024 Last OV: 12..2023 Upcoming follow up noted 6..2024 Mammo: due since 2015 CRCS: due since 2021 - FOBT last completed A1c: due since 10/2024 KED: UACR and CMP due Diabetic Eye exam: Due 7. - last completed at [facility] Reason for Outreach Care Gap/HCC or Scheduling Wellness Visits Care Gaps due: Medicare Annual Wellness Visit Breast Cancer Screening Colorectal Cancer Screening Diabetic Eye Exam HBA1C KED Patient Contacted: Unable or unnecessary to reach patient: Left message MyChart message sent Updated appointment notes Navigation Signature: Vanessa Navarro MA November 18, 2024 9:30 AM documented in this encounterSelect Medical [facility]03-19-2025 NotePatient Outreach (NETNAV) BARBARA ALLEN ([id number]) 1955 F Date Time Provider Department 11/18/24 VANESSA DE LA ROSA NETAUBREY During your visit today, we recorded the following information about you: Vanessa De La Rosa MA 11/18/2024 10:49 AM Signed POPULATION HEALTH NAVIGATION OUTREACH Action/I Last Wellness exam: 5..2023 Last OV: 12.2.2023 Upcoming follow up noted 6..2024 Mammo: due since 2015 CRCS: due since 2021 - FOBT last completed A1c: due since 10/2024 KED: UACR and CMP due Diabetic Eye exam: Due 7..2024 - last completed at [facility] Reason for Outreach Care Gap/HCC or Scheduling [...] 5:06 PM Signed POPULATION HEALTH NAVIGATION OUTREACH Action/FYI Patient replies via mychart declines scheduling MyChart message sent to patient Reason for Outreach Returned Call/MyChart Patient Contacted: Spoke to patient/parent/or legal guardian Patient identified by name and date of : Yes Returned call/MyChart actions taken: MyChart message sent Patient declined: Patient will contact office directly to schedule Navigation Signature: Vanessa NavarroMIGUE November 18, 2024 5:03 PM Allergies As of Date: 11/18/2024 Noted Allergy Reaction LISINOPRIL 03/10/2014 3 - Cough Date Reviewed: 08/03/2024 Reviewed by: Jillian Mojica APRN.REGISTERED PHLEBOTOMIST PART TIME - Fully Assessed Reason for Visit: Population [...] every other day. - blood sugar diagnostic (SmartioTOUCH ULTRA TEST) test strip Use as instructed [...] Status:Closed by VANESSA DE LA ROSA on 11/18/24[facility]12-02-2024 NoteHNO ID: [id number] Author: JILLIAN MOJICA APRN.REGISTERED PHLEBOTOMIST PART TIME Service: ? Author Type: Nurse Specialist Type: [...] her feet. [facility]. Defers [...] sugar diagnostic (ONETOUCH U (more content not included)...[facility]12-02-2024 History of Present illness Narrative* Jillian Mojica, TRANSLATOR DEAF.REGISTERED PHLEBOTOMIST PART TIME - 08/03/2024 2:07 PM EST SUBJECTIVE: Shingrix Vaccine(1 of 2) Never done [...] Presents for routine follow-up visit. Followed by [facility] cardiology. Continues on Eliquis for [...] her feet. States she goes to the [facility], to have cataracts removed in 2024. Defers [...] mouth every other day. blood sugar diagnostic (SmartioTOUCH ULTRA TEST) test strip Use as instructed [...] daily. And a s needed for symptoms ofsugars too high or too low. DX: E11.65 ELIE PAST MEDICAL HISTORY Diagnosis Date Abnormal Papanicolaou [...] Abs Lymph 1.00 - 4.00 k/uL 1.36 Pacific% % 7.8 Abs Pacific <0.87 k/uL 0.54 Eosin% % 3.9 Abs [...] Negative Ketones, Urine Negative Negative Negative Specific Snowflake, Ur 1.005 - 1.030 1.017 1.013 Hemoglobin/Blood,Ur [...] - ICD9: 427.31, ICD10: I48.11 Followed by [facility] 7. Acute cystitis with hematuria [...] one month 6 mo follow up Rodrigo Jimenez MD with labs Jillian Mojica APRN.REGISTERED PHLEBOTOMIST PART TIME Medical Decision Making: Problems: Moderate: 2+ stable chronic illnesses Data: Unique test(s) ordered: 3+ Risk: Moderate: Drug management Medical Decision Making Level: 4 - Moderate documented in this encounterSelect Medical [facility] Hospital10-03-2024 Telephone encounter Note * Telephone Encounter - Norma Kim LPN - 06/04/2024 12:46 PM EDT Pt returns call, gave information provided, pt voices understanding. [facility]10-03-2024 Miscellaneous Notes* Telephone Encounter - Norma Kim LPN - 06/04/2024 12:46 PM EDT Pt returns call, gave information provided, pt voices understanding. * Telephone Encounter - Yasmeen Whatley LPN - 06/04/2024 9:04 AM EDT Phoned patient left message to return call and ask to speak to a nurse. * Telephone Encounter - Rodrigo Jimenez MD - 06/03/2024 7:02 PM EDT There was a RX that went through [...] two times a day. Authorizing Provider: RODRIGO JIMENEZ MD * Telephone Encounter - Yasmeen Whatley LPN - 06/03/2024 11:28 AM EDT [facility] pharmacy calling asking to have directions on Furosemide 40 mg rx clarified. Rx say one tablet twice daily, in morning. Last rx that they processed was from [facility] and it was once daily. Can send new rx with new directions or can call. Please advise documented in this encounterSelect Medical [facility] Hospital10-03-2024 Telephone encounter Note * Telephone Encounter - Yasmeen Whatley LPN - 06/04/2024 9:04 AM EDT Phoned patient left message to return call and ask to speak to a nurse. [facility]10-02-2024 Telephone encounter Note* Telephone Encounter - Rodrigo Jimenez MD - 06/03/2024 7:02 PM EDT There was a RX that went through [...] two times a day. Authorizing Provider: RODRIGO JIMENEZ MD [facility]10-02-2024 Telephone encounter Note* Telephone Encounter - Yasmeen Whatley LPN - 06/03/2024 11:28 AM EDT [facility] pharmacy calling asking to have directions on Furosemide 40 mg rx clarified. Rx say one tablet twice daily, in morning. Last rx that they processed was from [facility] and it was once daily. Can send new rx with new directions or can call. Please advise T [facility]09-23-2024 Telephone encounter Note* Telephone Encounter - Rodrigo Jimenez MD - 05/25/2024 11:03 PM EDT The following approved medication requests have been [...] insulin. 1 daily. Diagnosis: (E11.65, Z79.4) Rodrigo Jimenez MD [facility]09-23-2024 Miscellaneous Notes* Telephone Encounter - Rodrigo Jimenez MD - 05/25/2024 11:03 PM EDT The following approved medication requests have been [...] insulin. 1 daily. Diagnosis: (E11.65, Z79.4) Rodrigo Jimenez MD * Telephone Encounter - Alis BairdCARMEN - 05/25/2024 7:33 PM EDT Patient has been identified by name and [...] you. Alis Baird LPN. documented in this encounterSelect Medical Ohiohealth [facility] Hospital09-23-2024 Telephone encounter Note * Telephone Encounter - Alis Baird LPN - 05/25/2024 7:33 PM EDT Patient has been identified by name and [...] Please advise. Thank you. Alis Baird LPN. [facility]05-29-2024 Instructions* Patient Instructions* Rodrigo Jimenez MD - 01/29/2024 2:53 PM EDT Vitamin [...] Colorectal Cancer Screening due on 06/26/2022 Covid-19 Vaccine() due on 05/03/2023 Diabetic Foot Exam due [...] review all the medicines you take, even axna-gtp-evlljvm medicines. As you get older, the way medicines work in your body can change. Some medicines, or combinations of medicines, can make you sleepy or dizzy andcan cause you to fall. 3. Have your [...] medical conditions. BONE MINERAL DENSITY PATIENT INSTRUCTIONS Bone mineral density testing measures the amount of calcium in certain parts of your bones. This information determines how strong your bones are. The test is used to detect osteoporosis, a disease in which the bone's mineral content and density are low, increasing a person's risk of fractures. Thelumbar spine (lower back) and the hip are [...] your usual activities immediately. documented in this encounterSelect Medical Ohiohealth [facility] Hospital05-29-2024 History of Present illness Narrative* Rodrigo Jimenez MD - 01/29/2024 2:44 PM EDT Images from the original note were not included. This note was created using [employer]riter. Subjective Barbara Allen is a 68 year old female. Patient presents with: Established Patient: Follow up with labs prior SUBJECTIVE: Barbara lAlen is a 68 year old year old lady here today for Medicare Wellness and follow up appointment for review of medical conditions. Did feel shaky when came in for fasting labs 01/23. Sugar control otherwise controlled. Not usually too low. Noted issues with insulin refill at [facility]--won't break up boxes. Stable on current [...] mouth every other day. blood sugar diagnostic (Ablative SolutionsUCH ULTRA TEST) test strip Use as instructed [...] daily. And a s needed for symptoms ofsugars too high or too low. DX: E11.65 [...] Abs Lymph 1.00 - 4.00 k/uL 1.36 Pacific% % 7.8 Abs Pacific <0.87 k/uL 0.54 Eosin% % 3.9 Abs [...] Negative Negative Ketones, Urine Negative Negative Specific [place], Ur 1.005 - 1.030 1.017 Hemoglobin/Blood,Ur Negative [...] in the medical record. Outside specialists seen: [facility] ([facility]/Family history review [...] with microalbuminuria, with long-term current use of insulin([facility]) E11.29 insulin glargine (LANTUS SOLOSTAR U-100 [...] and regular exercise and adequate sleep. Rodrigo Jimenez MD documented in this encounterSelect [facility]24 Telephone encounter Note * Telephone Encounter - Rodrigo Jimenez MD - 01/23/2024 2:26 PM EDT The following approved medication requests have been transmitted electronically. Requested Prescriptions Signed Prescriptions Disp Refills potassium chloride ER (KLOR-CON) 20 mEq tablet 180 tablet 2 Sig: Take 1 tablet by mouth two times a day. Authorizing Provider: RODRIGO JIMENEZ MD [facility]05-23-2024 Miscellaneous Notes* Telephone Encounter - Rodrigo Jimenez MD - 01/23/2024 2:26 PM EDT The following approved medication requests have been transmitted electronically. Requested Prescriptions Signed Prescriptions Disp Refills potassium chloride ER (KLOR-CON) 20 mEq tablet 180 tablet 2 Sig: Take 1 tablet by mouth two times a day. Authorizing Provider: RODRIGO JIMENEZ MD * Telephone Encounter - Pepper Sharma LPN - 01/23/2024 10:01 AM EDT Patient has been identified by name and [...] you. Pepper Sharma LPN. documented in this encounterSelect [facility]05-23-2024 Telephone encounter Note * Telephone Encounter - Pepper Sharma LPN - 01/23/2024 10:01 AM EDT Patient has been identified by name and [...] Please advise. Thank you. Pepper Sharma LPN. [facility]05-01-[facility]24 Telephone encounter Note* Telephone Encounter - Alis Baird LPN - 01/01/2024 9:17 AM EDT Talked to Patient, Simvastatin Rx was sent to [facility] 12/06/2023 for 90 tablets, 3 refills, Patient will call mail order pharmacy. Alis Baird LPN [facility]05-01-2024 Miscellaneous Notes* Telephone Encounter - Alis Baird LPN - 01/01/2024 9:17 AM EDT Talked to Patient, Simvastatin Rx was sent to [facility] 12/06/2023 for 90 tablets, 3 refills, Patient will call mail order pharmacy. Alis Baird LPN documented in this encounterSelect Medical [facility]04-29-2024 Telephone encounter Note * Telephone Encounter - Suzi Dougherty OCCA - 12/30/2023 9:42 AM EDT TC to patient who verbalized understanding of below. No further questions at this time. NAHOMY Lugo [facility]04-29-2024 Miscellaneous Notes* Telephone Encounter - Suzi Dougherty OCCA - 12/30/2023 9:42 AM EDT TC to patient who verbalized understanding of below. No further questions at this time. NAHOMY Lugo * Telephone Encounter - Rodrigo Jimenez MD - 12/27/2023 9:23 PM EDT Noted. Not sure why no labs on file. Labs ordered now. I filed standing orders so available every 6 months. Included urine for follow upon albuminuria (leaking protein through the kidneys) to see whether worsening or improving. Also TSH since was elevated in the past * Telephone Encounter - Magali Reyes - 12/24/2023 7:49 AM EDT Pt came in this morning to get labs but there are no labs in her chart. Pt says Derick usually has her get labs before her appts and her next appt is next 01/28. I told pt we could contact her if labs are needed before her appt. Please review and advise. Thank you, Magali Reyes documented in this encounterSelect Medical [facility]04-26-2024 Telephone encounter Note * Telephone Encounter - Rodrigo Jimenez MD - 12/27/2023 9:23 PM EDT Noted. Not sure why no labs on file. Labs ordered now. I filed standing orders so available every 6 months. Included urine for follow upon albuminuria (leaking protein through the kidneys) to see whether worsening or improving. Also TSH since was elevated in the past [facility]04-25-[facility]24 History of Present illness Narrative* Cristal Pratt RPh - 12/26/2023 9:04 AM EDT Primary Care Pharmacy Panel Management This patient has been identified through panel management efforts by the primary care pharmacy team. Patient appears to be good candidate for PharmD referral. She has upcoming appt with PCP on 01/28 --> will reach out to PCP to suggest discussing PharmD referral at visit. Cristal Pratt RPh documented in this encounterSelect Medical [facility]04-23-2024 Telephone encounter Note * Telephone Encounter - Magali Reyes - 12/24/2023 7:49 AM EDT Pt came in this morning to get labs but there are no labs in her chart. Pt says Bonyjuan daniel usually has her get labs before her appts and her next appt is next Sat. 01/28. I told pt we could contact her if labs are needed before her appt. Please review and advise. Thank you, Magali Reyes [facility]04-11-2024 Miscellaneous Notes* Telephone Encounter - Yasmeen Whatley LPN - 12/12/2023 2:43 PM EDT Patient calling asking for a 30 day supply Lantus to [facility] please. Pending rx Please advise Patient has [...] you. Yasmeen Whatley LPN. documented in this encounterSelect Medical [facility]04-05-2024 Miscellaneous Notes* Telephone Encounter - Bailey Thornton LPN - 12/06/2023 10:58 AM EDT Patient has been identified by name and date of : Yes, Provider Dr. Jimenez Date 12/06/23 Time 10:59 am Pharmacy phones for refill(s): Requested Prescriptions Pending Prescriptions Disp Refills simvastatin (ZOCOR) 40 mg tablet 90 tablet 3 Sig: Take 1 tablet by mouth once daily. Date of last office visit in primary care: 02/15/2023 Date of next office visit in primary care: 01/29/2024 No call back needed. Thank you. Bailey Thornton LPN. documented in this encounterSelect Medical [facility]02-07-2024 Miscellaneous Notes* Telephone Encounter - Alexandra Mondragon RN - 10/09/2023 9:00 AM EST Patient calls to request a new prescription be sent to [facility] Pharmacy for Lantus insulin. Patient requests prescription be sent for 30 days. Current prescription is a supply of 68 days and costs almost the same as the 90 day supply. Pended for review. Alexandra Mondragon RN documented in this encounterSelect Medical [facility]01-31-2024 Miscellaneous Notes* Telephone Encounter - Alis Baird LPN - 10/02/2023 3:54 PM EST Patient has been identified by name and [...] you. Alis Baird LPN. documented in this encounterSelect Medical [facility]10-17-2023 Miscellaneous Notes* Telephone Encounter - Minnie Beckford LPN - 06/18/2023 11:35 AM EDT Faxed OV note from 08/14/22 along with the forms. Minnie Beckford LPN * Telephone Encounter - Gillian Garcia LPN - 06/10/2023 1:03 PM EDT Form was signed and faxed on 06/03/2023 but office notes were not included. Last office visit 02/15/2023 did not mention usage of O2. * Telephone Encounter - Rodrigo Jimenez MD - 06/08/2023 4:37 PM EDT I think this was taken care of--I signed to form * Telephone Encounter - Candace Turcios MA - 06/03/2023 12:52 PM EDT O2 order received from [facility]. D/t patient's insurance change, patient needs new order and CALLIE note faxed to [phone] Jimenez. Form taken to Dr. Jimenez nurse station. Candace Turcios MA documented in this encounterSelect Medical [facility]10-01-2023 History of Present illness Narrative* Jessica Barajas MA - 06/02/2023 1:33 PM EDT POPULATION HEALTH NAVIGATION OUTREACH Action/FYI [employer] Care Gaps Outreach LAST OUTREACH: NA [...] Dept Phone 08/20/2023 1:40 PM Jillian Mojica [facility] [phone] Mammogram Screening due on 07/27/2016 - declined, [...] visits Payer: Payor: [employer] MEDICARE / Plan: [employer] / Product Type: HMO / Care Gap [...] 02, 2023 1:33 PM documented in this encounterSelect Medical [facility]07-07-2023 Miscellaneous Notes* Telephone Encounter - Indira Mejia LPN - 03/08/2023 8:59 AM EDT Patient has been identified by name and [...] you. Indira Mejia LPN documented in this encounterSelect Medical [facility]06-16-2023 History of Present illness Narrative* Rodrigo Jimenez MD - 02/15/2023 2:44 PM EDT This note was created using NoteWriter. Subjective Barbara Allen is a 67 year [...] Outpatient Medications Medication Sig blood sugar diagnostic (ULURU ULTRA TEST) test strip Use as instructed FOR TESTING twice daily. Dx: E11.65, Z79.4, Insulin: YES Blood-Glucose Meter (ACCU-CHEK KENNETH PLUS METER) 1 Each twice daily. And a s needed for symptoms ofsugars too high or too low. DX: E11.65 [...] 109.3 kg (241 lb) SpO2 96% BMI 39.49kg/m Physical Exam Constitutional: Appearance: Normal appearance. She [...] and regular exercise and adequate sleep. Rodrigo Jimenez MD documented in this encounterSelect Medical [facility]05-09-2023 Miscellaneous Notes* Telephone Encounter - Alis Baird LPN - 01/08/2023 3:02 PM EDT TC Barbara, Ferrous, Glimepiride & Omeprazole all were written 06/04/2022 for 90 days with 3 refills, sent to [facility] Mail Order pharmacy. Patient will check with pharmacy. Advised if she has anyproblems call back and speak to a nurse. Alis Baird LPN documented in this encounterSelect Medical [facility]03-28-2023 Miscellaneous Notes* Telephone Encounter - Alis Baird LPN - 11/27/2022 1:29 PM EDT Patient has been identified by name and [...] you. Alis Baird LPN documented in this encounterSelect Medical [facility]03-28-2023 Miscellaneous Notes* Telephone Encounter - Alis Baird LPN - 11/27/2022 1:28 PM EDT Patient has been identified by name and date of : Yes Patient phones for refill(s): Requested Prescriptions Pending Prescriptions Disp Refills blood sugar diagnostic (SmartioTOUCH ULTRA TEST) test strip 300 Strip 3 [...] you. Alis Baird LPN documented in this encounterSelect Medical [facility]03-28-2023 Miscellaneous Notes* Telephone Encounter - Alis Baird LPN - 11/27/2022 1:26 PM EDT Patient has been identified by name and [...] you. Alis Baird LPN documented in this encounterSelect Medical [facility]02-01-2023 History of Present illness Narrative* Ida Felix MA - 10/03/2022 2:06 PM EST POPULATION HEALTH NAVIGATION OUTREACH Action/FYI LM for pt to call to schedule mammogram, colonoscopy, diabetic retinal eye exam. Notes added to upcoming ov to review hcc gaps Patient Identified by Name and : NO Outreach Outcome/Action Unable to reach patient: Left message [email or web address] message sent Did you use a PCP flex slot to schedule this appointment? N/A Reason for Outreach Care Gap or Scheduling/Wellness visits Payer: Payor: [employer] MEDICARE / Plan: [employer] / Product Type: HMO / Care Gap [...] 03, 2022 2:06 PM documented in this encounterSelect Medical [facility]01-03-2023 Miscellaneous Notes* Telephone Encounter - Rodrigo Jimenez MD - 09/04/2022 5:16 PM EST Okayed * Telephone Encounter - Kevin Ignacio Ma - 09/04/2022 4:52 PM EST CALLIE: 08/14/2022 Last refill: 03/07/2022 QTY: 5 Refills: 2 Patient phones requesting refills as follows: Requested Prescriptions Pending Prescriptions Disp Refills insulin glargine (LANTUS SOLOSTAR U-100 INSULIN) 100 unit/mL (3 mL) 5 Each 2 Sig: Inject 22 Units subcutaneously daily at bedtime. Please review and advise. Kevin Ignacio Ma documented in this encounterSelect Medical [facility]10-18-2022 History of Present illness Narrative* Vanessa Navarro MA - 06/19/2022 3:35 PM EDT POPULATION HEALTH NAVIGATION OUTREACH Action/FYI left message on machine to return call Attenex message sent to patient Pt identified by name and : NO Outreach Outcome/Action Unable to reach patient: Left message [email or web address] message sent Did you use a PCP flex slot to schedule this appointment? N/A Reason for Outreach Care Gap or Scheduling/Wellness visits Payer: Payor: [employer] MEDICARE / Plan: [employer] / Product Type: HMO / Care Gap [...] Sent to Practice: No Navigation Signature: Vanessa Navarro Population Health Navigator June 19, 2022 3:35 PM documented in this encounterSelect Medical [facility]07-05-2022 Miscellaneous Notes* Telephone Encounter - Alis Baird LPN - 03/06/2022 2:47 PM EDT Patient has been identified by name and [...] you. Alis Baird LPN documented in this encounterSelect Medical [facility]06-13-2022 History of Present illness Narrative* Rodrigo Jimenez MD - 02/12/2022 1:40 PM EDT This note was created using Info. Subjective Barbara Allen is a 66 year old female. Patient presents with: F/U 6 months SUBJECTIVE: Barbara Allen is a 66 year old year old lady here today for 6 month follow up appointment for review of medical conditions. Reviewed [facility] results of studies. LVEF went from 25% [...] daily. Diagnosis: (E11.65, Z79.4) blood sugar diagnostic (Ablative SolutionsUCH ULTRA TEST) test strip Use as instructed [...] DAY WITH A MEAL OR FOOD CRANBERRY [employer] stockings 30 mm Hg Knee high (dispense 4 pairs). (I87.303) Stasis edema of both lower extremities Lancets lancets Test blood sugar(s) 2 times daily. Dx: Type 2 DM - Uncontrolled . Insulin: Yes Multivitamins chew Take 2 tablets [...] Lymph 1.00 - 4.00 k/uL 0.93 (L) Pacific% % 6.0 Abs Pacific <0.87 k/uL 0.39 Eosin% % 1.5 Abs [...] with microalbuminuria, with long-term current use of insulin(HCC) - ICD9: 250.40, 791.0, V58.67, ICD10: E11.29, [...] noted in HPI Continue follow up with human capital manager 6. Elevated TSH - ICD9: 794.5, ICD10: R79.89 Suspect amiodarone caused elevated TSH Update labs as discussed. Further evaluation and treatment as indicated. - TSH BLD - T4 FREE/FREE THYROX - HGB A1C Rodrigo Jimenez MD documented in this encounterSelect Medical [facility]05-26-2022 Miscellaneous Notes* Telephone Encounter - Bailey Thornton LPN - 01/25/2022 1:48 PM EDT Duplication request. Bailey Thornton LPN documented in this encounterSelect Medical [facility]05-26-2022 Miscellaneous Notes* Telephone Encounter - Pepper Durbin LPN - 01/25/2022 12:57 PM EDT Patient has been identified by name and [...] you. Pepper Durbin LPN documented in this encounterSelect Medical [facility]03-24-2022 History of Present illness Narrative* Maggy Fritz MA - 11/23/2021 2:32 PM EDT POPULATION HEALTH NAVIGATION OUTREACH Action/FYI [employer] outreach Mammogram AD LVM [email or web address] message sent Pt identified by name and : NO Outreach Outcome/Action Unable to reach patient: Left message MyChart message sent Reason for Outreach Care Gap or Scheduling/Wellness visits Payer: Payor: [employer] MEDICARE / Plan: [employer] GOLD PLUS / Product Type: HMO / [...] 23, 2021 2:32 PM documented in this encounterSelect Medical [facility]05-28-2020 History of Past illness Narrative* Problem Noted Date Resolved Date Uncontrolled type 2 diabetes mellitus with insul in therapy 01/28/2020 09/03/2021 documented as of this encounter (statuses as of 11/23/2021) [address] History of Past illness Narrative* Problem Noted Date Resolved Date Uncontrolled type 2 diabetes mellitus with insul in therapy 01/28/2020 09/03/2021 documented as of this encounter (statuses as of 01/25/2022) [address] History of Past illness Narrative* Problem Noted Date Resolved Date Uncontrolled type 2 diabetes mellitus with insul in therapy 01/28/2020 09/03/2021 documented as of this encounter (statuses as of 01/25/2022) [address] History of Past illness Narrative* Problem Noted Date Resolved Date Uncontrolled type 2 diabetes mellitus with insul in therapy 01/28/2020 09/03/2021 documented as of this encounter (statuses as of 02/20/2022) [address] History of Past illness Narrative* Problem Noted Date Resolved Date Uncontrolled type 2 diabetes mellitus with insul in therapy 01/28/2020 09/03/2021 documented as of this encounter (statuses as of 03/05/2022) [address] History of Past illness Narrative* Problem Noted Date Resolved Date Uncontrolled type 2 diabetes mellitus with insul in therapy 01/28/2020 09/03/2021 documented as of this encounter (statuses as of 03/07/2022) [facility] of Past illness Narrative* Problem Noted Date Resolved Date Uncontrolled type 2 diabetes mellitus with insul in therapy 01/28/2020 09/03/2021 documented as of this encounter (statuses as of 06/04/2022) [address] History of Past illness Narrative* Problem Noted Date Resolved Date Uncontrolled type 2 diabetes mellitus with insul in therapy 01/28/2020 09/03/2021 documented as of this encounter (statuses as of 06/19/2022) [address]2020 History of Past illness Narrative* Problem Noted Date Resolved Date Uncontrolled type 2 diabetes mellitus with insul in therapy 01/28/2020 09/03/2021 documented as of this encounter (statuses as of 08/06/2022) [address] History of Past illness Narrative* Problem Noted Date Resolved Date Uncontrolled type 2 diabetes mellitus with insul in therapy 01/28/2020 09/03/2021 documented as of this encounter (statuses as of 09/06/2022) [facility] of Past illness Narrative* Problem Noted Date Resolved Date Uncontrolled type 2 diabetes mellitus with insul in therapy 01/28/2020 09/03/2021 documented as of this encounter (statuses as of 10/03/2022) [address] History of Past illness Narrative* Problem Noted Date Resolved Date Uncontrolled type 2 diabetes mellitus with insul in therapy 01/28/2020 09/03/2021 documented as of this encounter (statuses as of 11/27/2022) [address]2020 History of Past illness Narrative* Problem Noted Date Resolved Date Uncontrolled type 2 diabetes mellitus with insul in therapy 01/28/2020 09/03/2021 documented as of this encounter (statuses as of 11/27/2022) [address] History of Past illness Narrative* Problem Noted Date Resolved Date Uncontrolled type 2 diabetes mellitus with insul in therapy 01/28/2020 09/03/2021 documented as of this encounter (statuses as of 01/09/2023) [place] [id number] History of Past illness Narrative* Problem Noted Date Resolved Date Uncontrolled type 2 diabetes mellitus with insul in therapy 01/28/2020 09/03/2021 documented as of this encounter (statuses as of 02/04/2023) [address] History of Past illness Narrative* Problem Noted Date Resolved Date Uncontrolled type 2 diabetes mellitus with insul in therapy 01/28/2020 09/03/2021 documented as of this encounter (statuses as of 03/08/2023) [address] History of Past illness Narrative* Problem Noted Date Resolved Date Uncontrolled type 2 diabetes mellitus with insul in therapy 01/28/2020 09/03/2021 documented as of this encounter (statuses as of 03/08/2023) [address] History of Past illness Narrative* Problem Noted Date Diagnosed Date Resolved Date Uncontrolled type 2 diabetes mellitus with insulin therapy 01/28/2020 09/03/2021 Class 3 severe obesity with body mass index (BMI) of 40.0 to 44.9 in adult 05/08/2006 3 documented as of this encounter (statuses as of 03/19/2023) [place] [address] History of Past illness Narrative* Problem Noted Date Diagnosed Date Resolved Date Uncontrolled type 2 diabetes mellitus with insulin therapy 01/28/2020 09/03/2021 Class 3 severe obesity with body mass index (BMI) of 40.0 to 44.9 in adult 05/08/2006 3 documented as of this encounter (statuses as of 06/02/2023) [place] [address] History of Past illness Narrative* Problem Noted Date Diagnosed Date Resolved Date Uncontrolled type 2 diabetes mellitus with insulin therapy 01/28/2020 09/03/2021 Class 3 severe obesity with body mass index (BMI) of 40.0 to 44.9 in adult 05/08/2006 3 documented as of this encounter (statuses as of 06/18/2023) [address] History of Past illness Narrative* Problem Noted Date Diagnosed Date Resolved Date Uncontrolled type 2 diabetes mellitus with insulin therapy 01/28/2020 09/03/2021 Class 3 severe obesity with body mass index (BMI) of 40.0 to 44.9 in adult 05/08/2006 3 documented as of this encounter (statuses as of 07/11/2023) [place] [address] History of Past illness Narrative* Problem Noted Date Diagnosed Date Resolved Date Uncontrolled type 2 diabetes mellitus with insulin therapy 01/28/2020 09/03/2021 Class 3 severe obesity with body mass index (BMI) of 40.0 to 44.9 in adult 05/08/2006 3 documented as of this encounter (statuses as of 10/03/2023) [address] History of Past illness Narrative* Problem Noted Date Diagnosed Date Resolved Date Uncontrolled type 2 diabetes mellitus with insulin therapy 01/28/2020 09/03/2021 Class 3 severe obesity with body mass index (BMI) of 40.0 to 44.9 in adult 05/08/2006 3 documented as of this encounter (statuses as of 10/09/2023) [place] [address] History of Past illness Narrative* Problem Noted Date Diagnosed Date Resolved Date Uncontrolled type 2 diabetes mellitus with insulin therapy 01/28/2020 09/03/2021 Class 3 severe obesity with body mass index (BMI) of 40.0 to 44.9 in adult 05/08/2006 3 documented as of this encounter (statuses as of 12/13/2023) [address] History of Past illness Narrative* Problem Noted Date Diagnosed Date Resolved Date Uncontrolled type 2 diabetes mellitus with insulin therapy 01/28/2020 09/03/2021 Class 3 severe obesity with body mass index (BMI) of 40.0 to 44.9 in adult 05/08/2006 3 documented as of this encounter (statuses as of 12/06/2023) [facility] Diagnosis Uncontrolled type 2 diabetes mellitus with insulin therapy Type II or unspecified type diabetes mellitus without mention of complication, uncontrolled [facility] Diagnosis Controlled type 2 diabetes mellitus without complication, with long-term current use of insulin (HCC)- Primary Type II or unspecified type diabetes mellitus without mention of complication, uncontrolled documented in this encounter [facility]* Diagnosis Onset Date Resolution Status Atherosclerotic heart diseas e of [place] coronary artery without angina pectoris acute Atrial fibrillation acute Essential hypertension acute Mixed hyperlipidemia acute Cardiomyopathy chronic [facility] Work Phone: Evaluation note* Diagnosis Controlled type 2 diabetes mellitus with microalbuminuria, with long-term current use of insulin (HCC)- Primary Essential hypertension Unspecified essential hypertension Pure hypercholesterolemia Stasis edema of both lower extremities Acute on chronic diastolic congestive heart failure (HCC) Acute on chronic diastolic heart failure Elevated TSH Nonspecific abnormal results of thyroid function study documented in this encounter [facility] [facility] Diagnosis Encounter for screening mammogram for breast cancer [facility] Diagnosis Controlled type 2 diabetes mellitus with microalbuminuria, with long-term current use of insulin (HCC) documented [facility] this encounter [facility] Diagnosis Essential hypertension Unspecified essential hypertension Controlled type 2 diabetes mellitus with microalbuminuria, with long-term current use of insulin (HCC) Gastroesophageal reflux disease without esophagitis Esophageal reflux documented in this encounter [facility] Diagnosis Controlled type 2 diabetes mellitus with microalbuminuria, with long-term current use of insulin (HCC) documented [facility] Diagnosis Controlled type 2 diabetes mellitus without complication, with long-term current use of insulin (HCC) documented [facility] Diagnosis Essential hypertension Unspecified essential hypertension Controlled type 2 diabetes mellitus with microalbuminuria, with long-term current use of insulin (HCC) Gastroesophageal reflux disease without esophagitis Esophageal reflux [facility] Diagnosis Encounter for screening mammogram for breast cancer documented [facility] Diagnosis Controlled type 2 diabetes mellitus with microalbuminuria, with long-term current use of insulin (HCC) [facility] Diagnosis Type 2 diabetes mellitus with hyperglycemia, with long-term current use of insulin (HCC)- Primary Essential hypertension Unspecified essential hypertension Type 2 diabetes mellitus with microalbuminuria, with long-term current use of insulin (HCC) Pure hypercholesterolemia Longstanding persistent atrial fibrillation (HCC) Colon cancer screening Special screening for malignant neoplasms, colon documented in this encounter [facility] Diagnosis Controlled type 2 diabetes mellitus with microalbuminuria, with long-term current use of insulin (HCC) documented [facility] this encounter [facility] Diagnosis Type 2 diabetes mellitus with [...] thyroid function study [facility] Diagnosis Controlled type 2 diabetes mellitus with microalbuminuria, with long-term current use of insulin (HCC) [facility] Pure hypercholesterolemia [facility] Diagnosis Encounter for screening mammogram for breast cancer documented [facility] this [facility] Diagnosis Medicare annual wellness visit, subsequent- Primary Routine general medical examination at a [facility] care facility Controlled type 2 diabetes mellitus with microalbuminuria, with long-term current use of insulin (HCC) Pure hypercholesterolemia Vitamin D deficiency Unspecified vitamin D deficiency Screening for osteoporosis Special screening for osteoporosis Asymptomatic menopause Encounter for immunization Need for other specified prophylactic vaccination against single bacterial disease [facility] Diagnosis Venous stasis dermatitis of right lower extremity Lower extremity edema Edema Essential hypertension Unspecified essential hypertension Controlled type 2 diabetes mellitus with microalbuminuria, with long-term current use of insulin (HCC) Gastroesophageal reflux disease without esophagitis Esophageal reflux [facility] Pure hypercholesterolemia [facility] Diagnosis Venous stasis dermatitis of right lower extremity Lower extremity edema Edema [facility] Diagnosis Type 2 diabetes mellitus [...] malignant neoplasms, colon [facility] Diagnosis Encounter for screening mammogram for breast cancer [facility] Diagnosis Type 2 diabetes mellitus with microalbuminuria, with long-term current use of insulin (HCC)- Primary Essential hypertension Unspecified essential hypertension Pure hypercholesterolemia Vitamin D deficiency Unspecified vitamin D deficiency Encounter for long-term current use of medication Elevated TSH Nonspecific abnormal results of thyroid function study Osteopenia, unspecified location documented in this encounter [facility] [place] note* Diagnosis Controlled type 2 diabetes mellitus with microalbuminuria, with long-term current use of insulin (HCC) documented in this encounter [facility] [place] noteNo assessment information availableHealthbridge [facility] Work Phone: Evaluation note* Diagnosis Controlled type 2 diabetes mellitus with microalbuminuria, with long-term current use of insulin (HCC) documented in this encounter [facility] [place] note* Diagnosis Controlled type 2 diabetes mellitus [...] (HCC) Morbid obesity documented [facility] this encounter [facility] and [facility] note Author Martínez Archer [facility] Note Date/Time March 23, 2025 12:1 0[facility] Medical Records Department [address] [place] [address] History & Physical Exam 03/23/25 0000 MR#: [id number] Acct: [id number] Name: BARBARA ALLEN Rep #:[id number] : 1955 69 From: Martínez Archer MD PCP: Dr. Rodrigo Jimenze MD Status:AD IN Location: [facility] [id number] HPI - General General Date of Admission: 03/22/25 Date of Service: 03/22/25 Chief Complaint: Generalized weakness HPI Narrative BARBARA ALLEN, is a 69 F who presents to the emergency room with chief complaint of generalized weakness and overall not feeling well. Patient states onset of the symptoms began yesterday and has progressed today. Patient denies any chestpain, shortness of breath or fevers or chills at present time and no nausea vomiting or diarrhea either. Patient has significant past medical history of atrial fibrillation chronic lower extremity edema. CBC shows elevated leukocytosis 26,000, hemoglobin 11.9, platelet count of 200, INR 1.9, sodium 137, potassium 4.1 with an anion gap of 16, creatinine 1.24, lactate 2.5, AST and ALT are within normal limits. Patient's proBNP PE was 31,913 which is consistent with her chest x-ray which showed interstitial edema and vascular congestion as well as possible multifocal pneumonia. Patient was started on Rocephin and azithromycin in the emergency room and will be admitted to the PCU due to atrial fibrillation initially RVR that has subsequently returned to normal rate. There is also concern for chronic left leg cellulitis. [facility] Medical History Type 2 diabetes mellitus Mixed hyperlipidemia Atherosclerotic heart disease of [place] coronary artery without angina pectoris Essential hypertension Pulmonary hypertension assoc with unclear multi-factorial mechanisms MORGAN (obstructive sleep apnea) CAD (coronary artery disease) Cardiomyopathy History of left heart catheterization (LHC) (~01/27/21) Sleep apnea GERD (gastroesophageal reflux disease) Diabetes Home Medications ?Medication ?Instructions ?Recorded ?Last Taken ?Type felodipine 10 mg tablet,extended 20 mg PO DAILY High B P 12/14/19 05/13/21 10:00 History release 24 hr glimepiride 4 mg tablet 4 mg PO BIDCM Diabetes 12/1305/13/21 10:00 History omeprazole 20 mg capsule,delayed 20 mg PO DAILY GERD 0 12/14/19 05/13/21 10:00 History release multivitamin 1 tab PO DAILY SUPPLEMENT 05/13/21 10:00 History simvastatin 40 mg tablet 40 mg PO QHS #90 tabs 05/12/21 21:00 Rx insulin glargine 100 unit/mL (3 18 unit subcut QHS DM 12/25/21 Unknown History mL) subcutaneous pen ferrous sulfate 325 mg (65 mg 325 mg PO DAILY 07/09/23 Unknown History iron) tablet (FeroSul) furosemide 40 mg tablet See Rx Instructions .Route 1 10/29/22 Unknown Rx .COMPLEX #180 tabs cholecalciferol (vitamin D3) 50 50 mcg PO DAILY Unknown History mcg (2,000 unit) capsule apixaban 5 mg tablet (Eliquis) 5 mg PO BID #60 tabs Unknown Rx carvedilol 12.5 mg tablet See Rx Instructions .Route 1 09/26/23 Unknown Rx .COMPLEX #180 tabs hydralazine 25 mg tablet 25 mg PO TID #270 tabs 11/11 Unknown Rx potassium chloride 20 mEq 20 meq PO BID 02/04/25 Unkno wn History tablet,extended release (K-Tab) digoxin 125 mcg (0.125 mg) tablet 125 mcg PO DAILY #90 tabs 03/01/25 Unknown Rx isosorbide mononitrate 30 mg 30 mg PO DAILY #90 tabs 0 03/01/25 Unknown Rx tablet,extended release 24 hr Allergy/AdvReac Type Severity Reaction Status Date / Time lisinopril Allergy Laryngospas Verified 02/04/25 14:13 ms Family History Mother No history of heart disease Father No history of heart disease Surgical History History of tonsillectomy Social History Smoking Status: Never smoker alcohol intake: never substance use type: does not use ROS Constitutional Constitutional: Reports weakness; Denies chills or fever(s) Eyes Eyes: Denies blurry vision ENT HEENT: Denies abnormal hearing Cardiovascular Cardiovascular: Denies chest pain Respiratory/Chest Respiratory/Chest: Reports shortness of breath with exertion Gastrointestinal Gastrointestinal: Denies abdominal pain Genitourinary Genitourinary: Denies dysuria Musculoskeletal Musculoskeletal: Reports extremity pain Integumentary Integumentary: Reports dry skin Neurologic Neurologic: Denies abnormal speech or confusion Psychiatric Psychiatric: Denies anxiety Vital Signs Vital Signs Vital Signs: 03/22/25 20:59 03/22/25 21:00 03/22/25 21:02 Temperature 99.7 F H 99.7 F H Temperature Source Oral Oral Pulse Rate 102 H 105 H Respiratory Rate 30 H 32 H Respiratory Effort Normal Respiratory Pattern Normal Blood Pressure 156/80 H 140/80 H Blood Pressure Mean 105 100 Pulse Ox 100 100 Oxygen Delivery Method Room Air Room Air Oxygen Flow Rate (L/min) 03/22/25 21:10 03/22/25 21:18 03/22/25 22:48 Temperature 100.5 F H Temperature Source Oral Pulse Rate 85 Respiratory Rate 24 H Respiratory Effort Respiratory Pattern Blood Pressure 143/84 H Blood Pressure Mean 103 Pulse Ox 95 100 Oxygen Delivery Method Room Air Room Air Room Air Oxygen Flow Rate (L/min) 03/22/25 23:46 Temperature 99.5 F H Temperature Source Oral Pulse Rate 90 Respiratory Rate 25 H Respiratory Effort Respiratory Pattern Blood Pressure 133/73 H Blood Pressure Mean 93 Pulse Ox 98 Oxygen Delivery Method Nasal Cannula Oxygen Flow Rate (L/min) 3 Weight Weight: 248 lb 7.375 oz Body Mass Index (BMI) 40.1 Physical Exam Const oriented x3 General Appearance: cooperative and well developed HEENT normocephalic and head/scalp atraumatic Neck no lymphadenopathy Lymph Lymphatic: no lymphadenopathy noted Resp normal respiratory effort, normal air movement and clear to auscultation bilaterally Cardio S1 normal heart sound and S2 normal heart sound Rhythm: abnormal rhythm irregularly irregular Extremity Extremity Narrative: 3+ lower extremity edema with left leg erythema and warmth around lower calf Skin General Skin Exam: no breakdown Neuro no focal motor deficits and no sensory deficits noted Psych cooperative and affect normal Results Lab / Micro Data 03/22/25 21:20 03/22/25 21:20 Labs: Laboratory Results - last 24 hr 03/22/25 21:20: WBC Cancelled 03/22/25 21:20: WBC 26.6 H, Corrected WBC Cancelled, RBC Cancelled 03/22/25 21:20: RBC 4.11 L, Hgb Cancelled 03/22/25 21:20: Hgb 11.9 L, Hct Cancelled 03/22/25 21:20: Hct 36.7 L, MCV Cancelled 03/22/25 21:20: MCV 89.3, MCH Cancelled 03/22/25 21:20: MCH 29.0, MCHC Cancelled 03/22/25 21:20: MCHC 32.4, RDW Std Deviation Cancelled 03/22/25 21:20: RDW Std Deviation 45.5 H, RDW Coeff of Rocio Cancelled 03/22/25 21:20: RDW Coeff of Rocio 13.9, Plt Count Cancelled 03/22/25 21:20: Plt Count 200, MPV Cancelled 03/22/25 21:20: MPV 11.4, Immature Gran % (Auto) Cancelled 03/22/25 21:20: Immature Gran % (Auto) 1.800 H, Neut % (Auto) Cancelled 03/22/25 21:20: Neut % (Auto) 92.9 H, Lymph % (Auto) Cancelled 03/22/25 21:20: Lymph % (Auto) 2.3 L, Pacific % (Auto) Cancelled 03/22/25 21:20: Pacific % (Auto) 2.7, Eos % (Auto) Cancelled 03/22/25 21:20: Eos % (Auto) 0.0, Baso % (Auto) Cancelled 03/22/25 21:20: Baso % (Auto) 0.3, Absolute Neuts (auto) Cancelled 03/22/25 21:20: Absolute Neuts (auto) 24.7 H, Absolute Lymphs (auto) Cancelled 03/22/25 21:20: Absolute Lymphs (auto) 0.62 L, Total Counted Cancelled, Neutrophils % (Manual) Cancelled, Band Neutrophils % Cancelled, Lymphocytes % (Manual) Cancelled, Monocytes % (Manual) Cancelled, Eosinophils % (Manual) Cancelled, Basophils % (Manual) Cancelled, Metamyelocytes % Cancelled, Myelocytes % Cancelled, Promyelocytes % Cancelled, Blast Cells % Cancelled, Plasma Cell % (Manual) Cancelled, Other Cells % Cancelled, Nucleated RBC % Cancelled 03/22/25 21:20: Nucleated RBC % 0, Nucleated RBCs/100 WBC Cancelled, Differential Comment Cancelled 03/22/25 21:20: Differential Comment , Diff Path Review Cancelled, Hypersegmented Neuts Cancelled, Atypical Lymphocytes Cancelled, Reactive Lymphocytes Cancelled, Smudge Cells Cancelled, Toxic Granulation Cancelled, Toxic Vacuolation Cancelled, Dohle Bodies Cancelled, Goran Rods Cancelled, Platelet Estimate Cancelled 03/22/25 21:20: Platelet Estimate ADEQUATE, Plt Morphology Comment Cancelled, RBC Morphology Cancelled 03/22/25 21:20: RBC Morphology Cancelled, Polychromasia Cancelled, HypochromasiaCancelled, Basophilic Stippling Cancelled, Anisocytosis Cancelled 03/22/25 21:20: Anisocytosis 1+, Microcytosis Cancelled, Macrocytosis Cancelled,Spherocytes Cancelled, Sickle Cells Cancelled, Target Cells Cancelled, Tear DropCells Cancelled 03/22/25 21:20: Tear Drop Cells RARE, Ovalocytes Cancelled 03/22/25 21:20: Ovalocytes 1+, Stomatocytes Cancelled, Phan-Quintana Bodies Cancelled, [place] Cells Cancelled, Bite Cells Cancelled, Crenated Cell Cancelled, Acanthocytes (Spur) Cancelled, Rouleaux Cancelled, Schistocytes Cancelled, PT 22.0 H, INR 1.9, APTT 42.2 H, Sodium 137, Potassium 4.1, Chloride 101, Carbon Dioxide 20.2 L, Anion Gap 16 H, BUN 31 H, Creatinine 1.24 H, Estim Creat Clear Calc 52.99, Est GFR (MDRD) Non-Af 47 L, BUN/Creatinine Ratio 25.0 H, Glucose 120H, Lactic Acid 2.5 H*, Calcium 9.4, Total Bilirubin 0.91, AST 61 H, ALT 23, Alkaline Phosphatase 108 H, [place] [address] H, Total Protein 7.9, Albumin 4.0, Globulin 3.9, Albumin/Globulin Ratio 1.0 03/22/25 23:40: Urine Color Kaya, Urine Clarity Cloudy, Urine pH 7.0, Ur Specific [place]ake 1.010, Urine Protein 500 H, Urine Glucose (UA) Normal, Urine Ketones Negative, Urine Occult Blood 250 H, Urine Nitrite Negative, Urine Bilirubin Negative, Urine Urobilinogen Normal, Ur Leukocyte Esterase 25 H Imaging Radiology Impression Chest X-Ray 03/22/25 21:44 IMPRESSION: Mild pulmonary edema although multifocal pneumonia not entirely excluded. Moderate cardiomegaly. Reading Location: [facility] Assessment & Plan Assessment/Plan (1) Multifocal pneumonia: (2) CHF (congestive heart failure): (3) Cellulitis of left leg: (4) Type 2 diabetes mellitus: (5) Mixed hyperlipidemia: (6) Essential hypertension: (7) Atrial fibrillation: QUALIFIERS: Atrial fibrillation type: permanent Qualified Code(s): I48.21 - Permanent atrial fibrillation (8) GERD (gastroesophageal reflux disease): PLAN: Plan 1 multifocal pneumonia?admit patient to progressive care unit, Rocephin and azithromycin, oxygen for supportive care per protocol repeat CBC BMP in the a.m. 2. Congestive heart failure?elevated BN TP along with vascular congestion on x- ray consistent with congestive heart failure?order echocardiogram in the a.m. may consider diuresis once patient's lactate levels have normalized 3. Hypertension?continue routine home antihypertensive therapy 4. Atrial fibrillation currently rate is controlled continue anticoagulation 5. GERD?continue PPI 6. Diabetes?continue routine home medication 7. DVT prophylaxis?patient is on anticoagulation for A-fib already 8. Cellulitis left lower extremity?patient will benefit from Rocephin already being given for pneumonia Charges/Coding Visit Charges Inpatient E&M: 67925 Init Hosp L2 03/23/25 0010 <Electronically signed by Martínez Archer MD> Cosigner Signature (if applicable): CC: Dr. Rodrigo Jimenez MD; Dr. Martínez Archer MD~ Signed [facility] Work Phone: Reason for referral (narrative)* Diagnostic Procedure Only (Routine) - Pending Review Specialty Diagnoses / Procedures Referred By Morris pink Referred To Contact [facility] Diagnoses Encounter for screening mammogram for breast cancer Procedures JEWELL SCREENING SCREENING MAMMOGRAPHY BI 2-VIEW BREAST INC Rodrigo Oswald MD [address] [id number] [facility] [address] [place] [address] Referral ID Status Reason Start Date Expiration Date Visits Requested Visits Authorized [id number] Pending Review Auto-Generat ed Referral 02/28/2022 03/30/2023 1 1 [facility] for referral (narrative)* Diagnostic Procedure Only (Routine) - Pending Review Specialty Diagnoses / Procedures Referred By Morris pink Referred To Contact [facility] Diagnoses Encounter for screening mammogram for breast cancer Procedures JEWELL SCREENING SCREENING MAMMOGRAPHY BI 2-VIEW BREAST INC Rodrigo Oswald MD [address] [place] [address] [facility] [address] [place] [address] Referral ID Status Reason Start Date Expiration Date Visits Requested Visits Authorized [id number] Pending Review Auto-Generat ed Referral 01/30/2023 02/29/2024 1 1 [facility] for referral (narrative)* Diagnostic Procedure Only (Routine) - Pending Review Specialty Diagnoses / Procedures Referred By Morris pink Referred To Contact [facility] Diagnoses Encounter for screening mammogram for breast cancer Procedures JEWELL SCREENING SCREENING MAMMOGRAPHY BI 2-VIEW BREAST INC CAD Rodrigo Jimenez MD [address] [place] [address] [facility] [address] [place] [address] Referral ID Status Reason Start Date Expiration Date Visits Requested Visits Authorized [id number] Pending Review Auto-Generat ed Referral 01/08/2024 02/06/2025 1 1 T [facility] for referral (narrative)* Diagnostic Procedure Only (Routine) - Authorized Specialty Diagnoses / Procedures Referred By Morris pink Referred To Contact XR IMAGING Diagnoses Screening for osteoporosis Asymptomatic menopause Procedures DXA-AXIAL SKELETON Rodrigo Jimenez MD [address] [place] [address] [place] [address] Referral ID Status Reason Start Date Expiration Date Visits Requested Visits Authorized [id number] Authorized Auto-Generat ed Referral 01/29/2024 02/27/2025 1 1 [facility] for referral (narrative)No reason for referral information availableIndiana [facility] Work Phone: Advance Directives Documents on File Type Date Recorded Patient Permit Coordinator Expl anation Advance Directive(s) Advance Directive Response Recorded Date/ Time Living Will Yes May 13, 2021 4:04pm Power of Manager Of Pharmacy Yes May 4:04pm Documents on File Type Date Recorded Patient Permit Coordinator Expl anation Advance Directive(s) Advance Directive Response Recorded Date/ Time Do you have a Healthcare Power of Manager Of Pharmacy? Yes March 22, 2025 9:01pm Chief Complaint and Reason for Visit Chief Complaint 10 m fu AFIB Reason for Visit Atherosclerotic hear t disease of [place] coronary artery without angina pectoris Atrial fibrillation Essential hypertension Mixed hyperlipidemia Cardiomyopathy Chief Complaint Admit Date 9 M FU February 04, 2025 2:09p m Chief Complaint Admit Date 9 M FU February 04, 2025 2:09p m CHF, LEF CELLULITIS, WEAKNESS March 22, 2025 11:35pm CHF, LEF CELLULITIS, WEAKNESS March 23, 2025 12:00am Reason for Visit Admit Date Atrial fibrillation February 04, 2025 2:09p m Essential hypertension February 04, 2025 2: 09pm Mixed hyperlipidemia February 04, 2025 2:09 pm MORGAN (obstructive sleep apnea) February 04, 2025 2:09pm Pulmonary hypertension assoc with unclear multi-factorial mechanisms February 04, 2025 2:09pm Atrial fibrillation March 22, 2025 11:3 5pm Atrial fibrillation with rapid ventricul ar response March 22, 2025 11:35pm Cellulitis of left leg March 22, 2025 1 1:35pm CHF (congestive heart failure) March 11:35pm Essential hypertension March 22, 2025 1 1:35pm Mixed hyperlipidemia March 22, 2025 11: 35pm Multifocal pneumonia March 22, 2025 11: 35pm Type 2 diabetes mellitus March 22, 2025 11:35pm Cardiomyopathy March 22, 2025 11:3 5pm GERD (gastroesophageal reflux disease) J dixon 2024 11:35pm Family History Relationship Condition Age at Onset Recorded Date/T [...] or prosecute any alcohol or drug abuse patient.[facility] the event this information is protected by the Federal Confidentiality of Alcohol and Drug Abuse Patient Records regulations: The Federal rules restrict any use of the information to criminally investigate or prosecute any alcohol or drug abuse patient.[facility] the event this information is protected by the Federal Confidentiality of Alcohol and Drug Abuse Patient Records regulations: The Federal rules restrict any use of the information to criminally investigate or prosecute any alcohol or drug abuse patient.[facility] the event this information is protected by the Federal Confidentiality of Alcohol and Drug Abuse Patient Records regulations: The Federal rules restrict any use of the information to criminally investigate or prosecute any alcohol or drug abuse patient.[facility] the event this information is protected by the Federal Confidentiality of Alcohol and Drug Abuse Patient Records regulations: The Federal rules restrict any use of the information to criminally investigate or prosecute any alcohol or drug abuse patient.[facility] Hospital[facility] the event this information is protected by the Federal Confidentiality of Alcohol and Drug Abuse Patient Records regulations: The Federal rules restrict any use of the information to criminally investigate or prosecute any alcohol or drug abuse patient.[facility] Hospital[facility] the event this information is protected by the Federal Confidentiality of Alcohol and Drug Abuse Patient Records regulations: The Federal rules restrict any use of the information to criminally investigate or prosecute any alcohol or drug abuse patient.[facility] Hospital[facility] the event this information is protected by the Federal Confidentiality of Alcohol and Drug Abuse Patient Records regulations: The Federal rules restrict any use of the information to criminally investigate or prosecute any alcohol or drug abuse patient.[facility] Hospital[facility] the event this information is protected by the Federal Confidentiality of Alcohol and Drug Abuse Patient Records regulations: The Federal rules restrict any use of the information to criminally investigate or prosecute any alcohol or drug abuse patient.[facility] Hospital[facility] the event this information is protected by the Federal Confidentiality of Alcohol and Drug Abuse Patient Records regulations: The Federal rules restrict any use of the information to criminally investigate or prosecute any alcohol or drug abuse patient.[facility] [facility] HospitalIn the event this information is protected by the Federal Confidentiality of Alcohol and Drug Abuse Patient Records regulations: The Federal rules restrict any use of the information to criminally investigate or prosecute any alcohol or drug abuse patient.[facility] HospitalIn the event this information is protected by the Federal Confidentiality of Alcohol and Drug Abuse Patient Records regulations: The Federal rules restrict any use of the information to criminally investigate or prosecute any alcohol or drug abuse patient.[facility] HospitalIn the event this information is protected by the Federal Confidentiality of Alcohol and Drug Abuse Patient Records regulations: The Federal rules restrict any use of the information to criminally investigate or prosecute any alcohol or drug abuse patient.[facility] HospitalIn the event this information is protected by the Federal Confidentiality of Alcohol and Drug Abuse Patient Records regulations: The Federal rules restrict any use of the information to criminally investigate or prosecute any alcohol or drug abuse patient.[facility] HospitalIn the event this information is protected by the Federal Confidentiality of Alcohol and Drug Abuse Patient Records regulations: The Federal rules restrict any use of the information to criminally investigate or prosecute any alcohol or drug abuse patient.[facility] HospitalIn the event this information is protected by the Federal Confidentiality of Alcohol and Drug Abuse Patient Records regulations: The Federal rules restrict any use of the information to criminally investigate or prosecute any alcohol or drug abuse patient.[facility] HospitalIn the event this information is protected by the Federal Confidentiality of Alcohol and Drug Abuse Patient Records regulations: The Federal rules restrict any use of the information to criminally investigate or prosecute any alcohol or drug abuse patient.[facility] HospitalIn the event this information is protected by the Federal Confidentiality of Alcohol and Drug Abuse Patient Records regulations: The Federal rules restrict any use of the information to criminally investigate or prosecute any alcohol or drug abuse patient.[facility] HospitalIn the event this information is protected by the Federal Confidentiality of Alcohol and Drug Abuse Patient Records regulations: The Federal rules restrict any use of the information to criminally investigate or prosecute any alcohol or drug abuse patient.[facility] HospitalIn the event this information is protected by the Federal Confidentiality of Alcohol and Drug Abuse Patient Records regulations: The Federal rules restrict any use of the information to criminally investigate or prosecute any alcohol or drug abuse patient.[facility] HospitalIn the event this information is protected by the Federal Confidentiality of Alcohol and Drug Abuse Patient Records regulations: The Federal rules restrict any use of the information to criminally investigate or prosecute any alcohol or drug abuse patient.[facility] HospitalIn the event this information is protected by the Federal Confidentiality of Alcohol and Drug Abuse Patient Records regulations: The Federal rules restrict any use of the information to criminally investigate or prosecute any alcohol or drug abuse patient.[facility] HospitalIn the event this information is protected by the Federal Confidentiality of Alcohol and Drug Abuse Patient Records regulations: The Federal rules restrict any use of the information to criminally investigate or prosecute any alcohol or drug abuse patient.[facility] HospitalIn the event this information is protected by the Federal Confidentiality of Alcohol and Drug Abuse Patient Records regulations: The Federal rules restrict any use of the information to criminally investigate or prosecute any alcohol or drug abuse patient.[facility] HospitalIn the event this information is protected by the Federal Confidentiality of Alcohol and Drug Abuse Patient Records regulations: The Federal rules restrict any use of the information to criminally investigate or prosecute any alcohol or drug abuse patient.[facility] HospitalIn the event this information is protected by the Federal Confidentiality of Alcohol and Drug Abuse Patient Records regulations: The Federal rules restrict any use of the information to criminally investigate or prosecute any alcohol or drug abuse patient.[facility] HospitalIn the event this information is protected by the Federal Confidentiality of Alcohol and Drug Abuse Patient Records regulations: The Federal rules restrict any use of the information to criminally investigate or prosecute any alcohol or drug abuse patient.[facility] HospitalIn the event this information is protected by the Federal Confidentiality of Alcohol and Drug Abuse Patient Records regulations: The Federal rules restrict any use of the information to criminally investigate or prosecute any alcohol or drug abuse patient.[facility] HospitalIn the event this information is protected by the Federal Confidentiality of Alcohol and Drug Abuse Patient Records regulations: The Federal rules restrict any use of the information to criminally investigate or prosecute any alcohol or drug abuse patient.[facility] HospitalIn the event this information is protected by the Federal Confidentiality of Alcohol and Drug Abuse Patient Records regulations: The Federal rules restrict any use of the information to criminally investigate or prosecute any alcohol or drug abuse patient.[facility] HospitalIn the event this information is protected by the Federal Confidentiality of Alcohol and Drug Abuse Patient Records regulations: The Federal rules restrict any use of the information to criminally investigate or prosecute any alcohol or drug abuse patient.[facility] HospitalIn the event this information is protected by the Federal Confidentiality of Alcohol and Drug Abuse Patient Records regulations: The Federal rules restrict any use of the information to criminally investigate or prosecute any alcohol or drug abuse patient.[facility] HospitalIn the event this information is protected by the Federal Confidentiality of Alcohol and Drug Abuse Patient Records regulations: The Federal rules restrict any use of the information to criminally investigate or prosecute any alcohol or drug abuse patient.[facility] HospitalIn the event this information is protected by the Federal Confidentiality of Alcohol and Drug Abuse Patient Records regulations: The Federal rules restrict any use of the information to criminally investigate or prosecute any alcohol or drug abuse patient.[facility] HospitalIn the event this information is protected by the Federal Confidentiality of Alcohol and Drug Abuse Patient Records regulations: The Federal rules restrict any use of the information to criminally investigate or prosecute any alcohol or drug abuse patient.[facility] HospitalIn the event this information is protected by the Federal Confidentiality of Alcohol and Drug Abuse Patient Records regulations: The Federal rules restrict any use of the information to criminally investigate or prosecute any alcohol or drug abuse patient.[facility] HospitalIn the event this information is protected by the Federal Confidentiality of Alcohol and Drug Abuse Patient Records regulations: The Federal rules restrict any use of the information to criminally investigate or prosecute any alcohol or drug abuse patient.[facility] HospitalIn the event this information is protected by the Federal Confidentiality of Alcohol and Drug Abuse Patient Records regulations: The Federal rules restrict any use of the information to criminally investigate or prosecute any alcohol or drug abuse patient.[facility] HospitalIn the event this information is protected by the Federal Confidentiality of Alcohol and Drug Abuse Patient Records regulations: The Federal rules restrict any use of the information to criminally investigate or prosecute any alcohol or drug abuse patient.[facility] HospitalIn the event this information is protected by the Federal Confidentiality of Alcohol and Drug Abuse Patient Records regulations: The Federal rules restrict any use of the information to criminally investigate or prosecute any alcohol or drug abuse patient.[facility] HospitalIn the event this information is protected by the Federal Confidentiality of Alcohol and Drug Abuse Patient Records regulations: The Federal rules restrict any use of the information to criminally investigate or prosecute any alcohol or drug abuse patient.[facility] HospitalIn the event this information is protected by the Federal Confidentiality of Alcohol and Drug Abuse Patient Records regulations: The Federal rules restrict any use of the information to criminally investigate or prosecute any alcohol or drug abuse patient.[facility] HospitalIn the event this information is protected by the Federal Confidentiality of Alcohol and Drug Abuse Patient Records regulations: The Federal rules restrict any use of the information to criminally investigate or prosecute any alcohol or drug abuse patient.[facility] HospitalIn the event this information is protected by the Federal Confidentiality of Alcohol and Drug Abuse Patient Records regulations: The Federal rules restrict any use of the information to criminally investigate or prosecute any alcohol or drug abuse patient.[facility] HospitalIn the event this information is protected by the Federal Confidentiality of Alcohol and Drug Abuse Patient Records regulations: The Federal rules restrict any use of the information to criminally investigate or prosecute any alcohol or drug abuse patient.[facility] HospitalIn the event this information is protected by the Federal Confidentiality of Alcohol and Drug Abuse Patient Records regulations: The Federal rules restrict any use of the information to criminally investigate or prosecute any alcohol or drug abuse patient.[facility] HospitalIn the event this information is protected by the Federal Confidentiality of Alcohol and Drug Abuse Patient Records regulations: The Federal rules restrict any use of the information to criminally investigate or prosecute any alcohol or drug abuse patient.[facility] Reason for Visit (unrecogniz ed section [...] Care Teams (unrecognized sec tion and content) Hot Saw Helper Relationship Specialty Start Date End Date Rodrigo Jimenez MD [address] [place], [place] [address] PCP - General 12/07/02 Chris Simms [facility] [address] [place], [place] [id number] Pharmacist Pharmacy 02/04/20 Hot Saw Helper Relationship Specialty Start Date End Date Rodrigo Jimenez MD [address] [place], [place] [id number] PCP - General 12/07/02 Chris Simms, [facility] [address] [place] [address] Pharmacist Pharmacy 02/04/20 Hot Saw Helper Relationship Specialty Start Date End Date Rodrigo Jimenez MD [address] [place] [address] PCP - General 12/07/02 Maotito Maguijonathon, [facility] [address] [place] [address] Pharmacist Pharmacy 02/04/20 Hot Saw Helper Relationship Specialty Start Date End Date Rodrigo Jimenez MD [address] [place] [address] PCP - General 12/07/02 [facility] [address] [place] [address] Pharmacist Pharmacy 02/04/20 Hot Saw Helper Relationship Specialty Start Date End Date Rodrigo Jimenez MD [address] [place] [address] PCP - General 12/07/02 MaoMagui francisjonathon, [facility] [address] [place] [address] Pharmacist Pharmacy 02/04/20 Hot Saw Helper Relationship Specialty Start Date End Date Rodrigo Jimenez MD [address] [place] [address] PCP - General 12/07/02 [facility] [address] [place] [address] Pharmacist Pharmacy 02/04/20 Hot Saw Helper Relationship Specialty Start Date End Date Rodrigo Jimenez MD [address] [place] [address] PCP - General 12/07/02 Chris Simms, [facility] [address] [place] [address] Pharmacist Pharmacy 02/04/20 Hot Saw Helper Relationship Specialty Start Date End Date Rodrigo Jimenez MD [address] [place] [address] PCP - General 12/07/02 Chris Simms, [facility] [address] [place] [address] Pharmacist Pharmacy 02/04/20 Hot Saw Helper Relationship Specialty Start Date End Date Rodrigo Jimenez MD [address] [place] [address] PCP - General 12/07/02 Chris Simms, [facility] [address] [place] [address] Pharmacist Pharmacy 02/04/20 Hot Saw Helper Relationship Specialty Start Date End Date Rodrigo Jimenez MD [address] [place] [address] PCP - General 12/07/02 Chris Simms, [facility] [address] [place] [address] Pharmacist Pharmacy 02/04/20 Hot Saw Helper Relationship Specialty Start Date End Date Rodrigo Jimenez MD [address] [place] [address] PCP - General 12/07/02 MaoChris, [facility] [address] [place] [address] Pharmacist Pharmacy 02/04/20 Hot Saw Helper Relationship Specialty Start Date End Date Rodrigo Jimenez MD [address] [place] [address] PCP - General 12/07/02 [facility], [facility] [address] [facility] [place] [place] [address] Pharmacist Pharmacy 02/04/20 Hot Saw Helper Relationship Specialty Start Date End Date Rodrigo Jimenez MD [address] [facility] [place] [place] [address] PCP - General 12/07/02 [facility], [facility] [address] [facility] [place] [address] Pharmacist Pharmacy 02/04/20 Hot Saw Helper Relationship Specialty Start Date End Date Rodrigo Jimenez MD [address] [facility] [place] [address] PCP - General 12/07/02 [facility], [facility] [address] [facility] [place] [place] [address] Pharmacist Pharmacy 02/04/20 Hot Saw Helper Relationship Specialty Start Date End Date Rodrigo Jimenez MD [address] [facility] [place] [place] [address] PCP - General 12/07/02 Mao Maguijonathon, [facility] [address] [facility] [place] [place] [address] Pharmacist Pharmacy 02/04/20 Hot Saw Helper Relationship Specialty Start Date End Date Rodrigo Jimenez MD [address] [facility] [place] [address] PCP - General 12/07/02 Mao Chris, [facility] [address] [facility] [place] [address] Pharmacist Pharmacy 02/04/20 Hot Saw Helper Relationship Specialty Start Date End Date Rodrigo Jimenez MD [address] [place] [address] PCP - General 12/07/02 Hot Saw Helper Relationship Specialty Start Date End Date Rodrigo Jimenez MD [address] [place] [address] PCP - General 12/07/02 Hot Saw Helper Relationship Specialty Start Date End Date Rodrigo Jimenez MD [address] [place] [address] PCP - General 12/07/02 Hot Saw Helper Relationship Specialty Start Date End Date Rodrigo Jimenez MD [address] [place] [address] PCP - General 12/07/02 Hot Saw Helper Relationship Specialty Start Date End Date Rodrigo Jimenez MD [address] [place] [address] PCP - General 12/07/02 Hot Saw Helper Relationship Specialty Start Date End Date Rodrigo Jimenez MD [address] [place] [address] PCP - General 12/07/02 Hot Saw Helper Relationship Specialty Start Date End Date Rodrigo Jimenez MD [address] [place] [address] PCP - General 12/07/02 Hot Saw Helper Relationship Specialty Start Date End Date Rodrigo Jimenez MD [address] [place] [address] PCP - General 12/07/02 Hot Saw Helper Relationship Specialty Start Date End Date Rodrigo Jimenez MD [address] [place] [address] PCP - General 12/07/02 Hot Saw Helper Relationship Specialty Start Date End Date Rodrigo Jimenez MD [address] [place] [address] PCP - General 12/07/02 Jillian Mojica, TRANSLATOR [employer].REGISTERED PHLEBOTOMIST PART TIME [address] [place] [address] Gas Appliance Repairer Internal Medicine 08/10/24 Benita Beltran [employer]SL[employer] [address] [place] [address] Gas Appliance Repairer Internal Medicine 08/10/24 Hot Saw Helper Relationship Specialty Start Date End Date Rodrigo Jimenez MD [address] [place] [address] PCP - General 12/07/02 Jillian Mojica, TRANSLATOR [employer].REGISTERED PHLEBOTOMIST PART TIME [address] [place] [address] Gas Appliance Repairer Internal Medicine 08/10/24 Benita Beltran TRANSLATOR [employer] [address] [place] [address] Gas Appliance Repairer Internal Medicine 08/10/24 Hot Saw Helper Relationship Specialty Start Date End Date Rodrigo Jimenez MD [address] [place] [address] PCP - General 12/07/02 Jillian Mojica, TRANSLATOR [employer].REGISTERED PHLEBOTOMIST PART TIME [address] [place] [address] Gas Appliance Repairer Internal Medicine 08/10/24 Benita Beltran TRANSLATOR [employer] [address] [place] [address] Gas Appliance Repairer Internal Medicine 11/24/24 Hot Saw Helper Relationship Specialty Start Date End Date Rodrigo Jimenez MD [address] [place] [address] PCP - General 12/07/02 Jillian Mojica, TRANSLATOR [employer].REGISTERED PHLEBOTOMIST PART TIME [address] [place] [address] Gas Appliance Repairer Internal Medicine 08/10/24 Benita Beltran TRANSLATOR [employer] [address] [place] [address] Gas Appliance Repairer Internal Medicine 11/24/24 Hot Saw Helper Relationship Specialty Start Date End Date Rodrigo Jimenez MD [address] [place] [address] PCP - General 12/07/02 Jillian Mojica, TRANSLATOR [employer].REGISTERED PHLEBOTOMIST PART TIME [address] [place] [address] Gas Appliance Repairer Internal Medicine 08/10/24 Benita Beltran TRANSLATOR [employer] [address] [place] [address] Gas Appliance Repairer Internal Medicine 11/24/24 Hot Saw Helper Relationship Specialty Start Date End Date Rodrigo Jimenez MD [address] [place] [address] PCP - General 12/07/02 Jillian Mojica APRN.REGISTERED PHLEBOTOMIST PART TIME [address] [place] [address] Gas Appliance Repairer Internal Medicine 08/10/24 Benita Beltran TRANSLATOR [employer] [address] [place] [address] Gas Appliance Repairer Internal Medicine 11/24/24 Hot Saw Helper Relationship Specialty Start Date End Date Rodrigo Jimenez MD [address] [place] [address] PCP - General 12/07/02 Benita Beltran TRANSLATOR [employer] [address] [place] [address] Gas Appliance Repairer Internal Medicine 11/24/24 Jillian Mojica TRANSLATOR [employer].REGISTERED PHLEBOTOMIST PART TIME [address] [place] [address] Gas Appliance Repairer Internal Medicine 01/20/25 Hot Saw Helper Relationship Specialty Start Date End Date Rodrigo Jimenez MD [address] [place] [address] PCP - General 12/07/02 Benita Beltran TRANSLATOR [employer] [address] [place] [address] Gas Appliance Repairer Internal Medicine 11/24/24 Jillian Mojica, TRANSLATOR [employer].REGISTERED PHLEBOTOMIST PART TIME [address] [place] [address] [facility] Internal Medicine 01/20/25 Team Status: Active Member Role Status Dates Dr. Rodrigo Jimenez MD Family Provider Active Dr. Rodrigo Jimenez MD Primary Care Provider Active Team Status: Inactive Member Role Status Dates Dr. Rodrigo Jimenez MD Primary Care Provider Active Start: February 04, 2025 End: February 04, 2025 Dr. Rodrigo Jimenez MD Referring Provider Active Start: February 04, 2025 End: February 04, 2025 Dr. Milton Linton MD Attending Provider Active Start: February 04, 2025 End: February 04, 2025 Hot Saw Helper Relationship Specialty Start Date End Date Rodrigo Jimenez MD [address] [place] [address] PCP - General 12/07/02 Benita Beltran TRANSLATOR [employer] [address] [place] [address] [facility] Internal Medicine 11/24/24 Jillian Mojica, TRANSLATOR [employer].REGISTERED PHLEBOTOMIST PART TIME [address] [place] [address] [facility] Internal Medicine 01/20/25 Hot Saw Helper Relationship Specialty Start Date End Date Rodrigo Jimenez MD [address] [place] [address] PCP - General 12/07/02 Benita Beltran TRANSLATOR [employer] [address] [place] [address] [facility] Internal Medicine 11/24/24 Jillian Mojica, TRANSLATOR [employer].REGISTERED PHLEBOTOMIST PART TIME [address] [place] [address] [facility] Internal Medicine 01/20/25 Hot Saw Helper Relationship Specialty Start Date End Date Rodrigo Jimenez MD [address] [facility] [place], [place] [address] PCP - General 12/07/02 Benita Beltran TRANSLATOR [employer] [address] [facility] [place], [place] [address] Gas Appliance Repairer Internal Medicine 11/24/24 Jillian Mojica, TRANSLATOR [employer].REGISTERED PHLEBOTOMIST PART TIME [address] [facility] [place], [place] [address] Gas Appliance Repairer Internal Medicine 01/20/25 Team Status: Active Member Role/Relationship Status Dates Dr. Rodrigo Jimenez MD Primary Care Provider Active Team Status: Inactive Member Role/Relationship Status Dates Dr. Rodrigo Jimenez MD Primary Care Provider Active Start: February 04, 2025 End: February 04, 2025 Dr. Rodrigo Jimenez MD Referring Provider Active Start: February 04, 2025 End: February 04, 2025 Dr. Milton Linton MD Attending Provider Active Start: February 04, 2025 End: February 04, 2025 Team Status: Active Member Role/Relationship Status Dates Dr. Rodrigo Jimenez MD Primary Care Provider Active Start: March 22, 2025 Dr. Parminder Jama DO Emergency Provider Active Start: March 22, 2025 Dr. Martínez Archer MD Admit Provider Active Star t: March 22, 2025 Dr. Martínez Archer MD Attending Provider Active Start: March 22, 2025 Team Status: Active Member Role/Relationship Status Dates Dr. Rodrigo Jimenez MD Primary Care Provider Active Start: March 23, 2025 Dr. Parminder Jama DO Emergency Provider Active Start: March 23, 2025 Dr. Martínez Archer MD Admit Provider Active Star t: March 23, 2025 Dr. Martínez Archer MD Attending Provider Active Start: March 23, 2025 Dr. Martínez Archer MD Other Provider Active Star t: March 23, 2025 Goals (unrecognized section and content) Goals may be documented in a n alternate sectionGoals may be documented in an alternate sectionGoals may be documented in an alternate section INFORMATION SOURCE (unrecogn ized section and content) DATE CREATED AUTHOR 02/05/2025 [facility] DATE CREATED AUTHOR AUTHORYoselin DRAKE PARAGVINCENT 03/16/2025 [facility] FOR RECORDS PERTAINING TO PATIENTS WHO ARE [...] BE BASED ON THE PRIMARY CLINICAL RECORDS. [employer] provides no warranty or guarantee of the accuracy or completeness of information in this document.
[2025-03-23 02:54] LABS: Anion Gap 14 (5-15); BUN 34 mg/dL (4-19); BUN/Creat Ratio 30.3 RATIO (10-20); Calcium,Total 8.1 mg/dL (7.6-11.0); Carbon Dioxide 18.2 mmol/L (21.0-32.0); Chloride 105 mmol/L (98-108); Estimated Creatinine Clearance 58.61 ml/min (50-250); Glucose 132 mg/dL (70-99); Potassium 3.6 mmol/L (3.3-5.1)
[2025-03-23] MEDS: Potassium Chloride Oral Tablet 20 MEQ PO ×2 (08:22→18:25)
[2025-03-23] MEDS: APIXABAN 5 MG TABLET PO ×2 (08:24→21:56)
--- NOTE | 2025-03-23 12:00 | CASEMGMT ---
RN SHINE ASSESSMENT RN CM to room to meet with patient for initial transition planning/care coordination assessment. RAQUEL RIOJAS introduced self and role at [facility]. Pt voices understanding and consents to assessment at this time. Pt resting in bed in no distress at this time. Pt is A/O at this time and answers all questions appropriately. Care providers, pharmacy, and demographics verified/updated at this time. Strata: 3 PCP: Dr Sepulveda Specialists: [facility]/cardiology Preferred Pharmacy: [facility] @ [place] Otherwise, goes to [facility]. Insurance: [employer] [facility] Prescription Benefit: yes LNOK: Sons Xavi Living Arrangements: Lives w/son in 2-story home w/one step to enter. Bedroom is upstairs. There is a bathroom on the main floor, but not one upstairs. She states she could do FFSU, if needed, stating, "I'm probably going to need to do that". She is independent @ baseline, but states past couple days she has been weak. She used BSC today when getting up, stating she still feels weak. Transportation: Pt states drives self and states no transportation concerns at this time. Son will take her home @ discharge. DME: States has the following DME: grab bars, CPAP, home O2 through [facility] and bleeds-in 3 L/M @ [facility]. Call to [facility]. Pt states she only has a concentrator. She does not have any portable O2 tanks. Pt also has a cane, but does not use. She states she may need a BSC for upstairs if having too much difficulty going up/down stairs @ discharge. Pt has a functioning glucometer w/sufficient supplies. However, she states she has not checked her BS's in a couple months. Pt states she takes Lantus daily. RAQUEL RIOJAS encouraged her to check her BS's regularly. Pt states no need for further DME at this time. HHC/SNF: No hx of SNF or HHC. She has been to [facility] in the past for OP therapy after breaking her arm. She declines wanting HHC or OP therapy. Made aware to discuss this with her PCP if she changes her mind after returning home. She voices understanding. Pt wishes to return home and states has no concerns with going home at time of discharge. CM to follow for any increase in home oxygen needs and any further discharge planning/needs. Pt voices no further concerns/needs at this time. Advised pt to ask for CM if any further questions/concerns/needs arise. Voices understanding. PLAN: Home PT/OT evals pending. Follow for recommendations. Tali MOOREN RN CM
--- NOTE | 2025-03-23 19:54 | PCM.HOSP.N ---
Hospitalist Note Patient was seen and examined today, I made the decision to stop the patient's Zithromax and maintain the patient on IV Rocephin. Her admission urinalysis indicates she may have a urinary tract infection. I am not absolutely sure she has a pneumonia, it is possible that she has congestive heart failure. Patient is on oral Lasix at this time, I have elected to increase her Lasix dose to 40 mg twice daily.
[2025-03-23] MEDS: Furosemide 20 MG/2 ML VIAL IV (21:56)
[2025-03-23] MEDS: Insulin Glargine-YFGN 100 UNIT/ML Pen 18 UNIT SC (21:56)
[2025-03-23] MEDS: 0.9% Saline Lock 10 ML Syringe IV (21:57)
[2025-03-24] VITALS (10 sets, daily range): BP systolic 112–130; BP diastolic 64–78; PULSE 77–87; RESP 12–18; TEMP 36.6–36.8; O2SAT 93–100
[2025-03-24] MEDS: Furosemide 20 MG/2 ML VIAL IV ×3 (05:12→21:01)
[2025-03-24] MEDS: 0.9% Saline Lock 10 ML Syringe IV ×3 (05:13→21:01)
[2025-03-24 06:57] LABS: Anion Gap 11 (5-15); BUN 45 mg/dL (4-19); BUN/Creat Ratio 33.4 RATIO (10-20); Calcium,Total 8.1 mg/dL (7.6-11.0); Carbon Dioxide 21.0 mmol/L (21.0-32.0); Chloride 105 mmol/L (98-108); Estimated Creatinine Clearance 48.55 ml/min (50-250); Glucose 176 mg/dL (70-99); Potassium 4.5 mmol/L (3.3-5.1)
[2025-03-24] MEDS: APIXABAN 5 MG TABLET PO ×2 (09:12→21:01)
[2025-03-24] MEDS: Potassium Chloride Oral Tablet 20 MEQ PO ×2 (09:13→18:09)
[2025-03-24 09:15] LABS: Hematocrit 29.8 % (37-47); Hemoglobin 9.7 g/dL (12.0-15.0); Immature Granulocytes Count 0.050 X10^3/uL (0.0-0.0); Mean Corp Hgb Conc 32.6 g/dL (32-36); Mean Corpuscular Volume 89.5 fL (81-99); Mean Platelet Vol. 11.8 fl (6.2-12.0); NRBC Flagged by Analyzer 0 % (0-5); Platelet Count 161 K/mm3 (150-450); RBC Distribution Width CV 14.1 % (11.6-14.6); RBC Distribution Width SD 46.1 fl (35.1-43.9); Red Blood Count 3.33 M/mm3 (4.2-5.4); White Blood Count 14.1 K/mm3 (4.4-11.0)
--- NOTE | 2025-03-24 13:25 | CON.PCM.ID_ITS ---
Assessment & Plan Assessment/Plan (1) Cellulitis of left leg: (2) Streptococcal bacteremia: PLAN: Due to LLE cellulitis. Echo pending. Cont ceftriaxone. Will follow, thank you, d/w Dr. Wilson (3) Sepsis: HPI Consult Data Date of Consult: 03/24/25 HPI Narrative Reason for Consultation: bacteremia HPI Narrative: FORTINO MONTES, is a 69 F with CHF, chronic edema, presented 03/22 to ED with two days weakness, fatigue, not feeling well. Increased L lower leg redness, swelling, tenderness over past 2 weeks. No drainage. No cough or SOB. Admitted here, now on ceftriaxone, feeling better. Full ROS performed and neg except as noted above. [facility] Medical History Type 2 diabetes mellitus Mixed hyperlipidemia Atherosclerotic heart disease of [place] coronary artery without angina pectoris Essential hypertension Pulmonary hypertension assoc with unclear multi-factorial mechanisms MORGAN (obstructive sleep apnea) CAD (coronary artery disease) Cardiomyopathy History of left heart catheterization (LHC) (~01/27/21) Sleep apnea GERD (gastroesophageal reflux disease) Diabetes Home Medications Medication Instructions Recorded Last Taken Type felodipine 10 mg tablet,extended 20 mg PO DAILY High B P 12/14/19 05/13/21 10:00 History release 24 hr glimepiride 4 mg tablet 4 mg PO BIDCM Diabetes 12/1305/13/21 10:00 History omeprazole 20 mg capsule,delayed 20 mg PO DAILY GERD 0 12/14/19 05/13/21 10:00 History release multivitamin 1 tab PO DAILY SUPPLEMENT 05/13/21 10:00 History simvastatin 40 mg tablet 40 mg PO QHS HIGH CHOLESTERO L #90 02/27/21 05/12/21 21:00 Rx tabs insulin glargine 100 unit/mL (3 22 unit subcut QHS DM 12/25/21 Unknown History mL) subcutaneous pen furosemide 40 mg tablet See Rx Instructions .Route 1 10/29/22 Unknown Rx .COMPLEX water pill #180 tabs cholecalciferol (vitamin D3) 50 50 mcg PO DAILY DEFICI ENCY 02/11/24 Unknown History mcg (2,000 unit) capsule apixaban 5 mg tablet (Eliquis) 5 mg PO BID A. FIB. #60 tabs 05/12/24 Unknown Rx hydralazine 25 mg tablet 25 mg PO TID HTN #270 tabs 0 11/11/24 Unknown Rx digoxin 125 mcg (0.125 mg) tablet 125 mcg PO DAILY hea rt rate #90 03/01/25 Unknown Rx tabs isosorbide mononitrate 30 mg 30 mg PO DAILY HYPERTENSI ON #90 03/01/25 Unknown Rx tablet,extended release 24 hr tabs carvedilol 12.5 mg tablet 12.5 mg PO DAILY HYPERTENSIO N 03/23/25 Unknown History levothyroxine 25 mcg tablet 25 mcg PO DAILY HYPOTHYROI DISM 03/23/25 Unknown History potassium chloride 20 mEq 20 meq PO BID HYPOKALEMIA Unknown History tablet,extended release(part/cryst) Allergy/AdvReac Type Severity Reaction Status Date / Time lisinopril Allergy Laryngospas Verified 02/04/25 14:13 ms Family History Mother No history of heart disease Father No history of heart disease Surgical History History of tonsillectomy Social History Smoking Status: Never smoker alcohol intake: never substance use type: does not use Physical Exam Const alert and no apparent distress General Appearance: cooperative HEENT normocephalic and head/scalp atraumatic Eyes PERRL and EOMs intact bilaterally Neck supple and No nodes Resp normal air movement and clear to auscultation bilaterally Cardio Negative for regular rate or regular rhythm GI soft to palpation, non-tender and non-distended Extremity General Extremity: edema Skin Skin Narrative: L lower leg redness, warmth, tenderness Neuro CN's II-XII intact bilaterally Lab / Micro Data Attestation: I reviewed the patient's lab results. 03/24/25 06:14 03/24/25 06:14 Labs: Laboratory Results - last 24 hr 03/23/25 21:54: POC Glucose 205 H 03/24/25 06:14: WBC 14.1 H, RBC 3.33 L, Hgb 9.7 L, Hct 29.8 L, MCV 89.5, MCH 29.1, MCHC 32.6, RDW Std Deviation 46.1 H, RDW Coeff of Rocio 14.1, Plt Count 161, MPV 11.8, Immature Gran % (Auto) 0.400, Neut % (Auto) 86.4 H, Lymph % (Auto) 7.1 L, Loving % (Auto) 5.9, Eos % (Auto) 0.1, Baso % (Auto) 0.1, Absolute Neuts (auto) 12.2 H, Absolute Lymphs (auto) 1.00, Nucleated RBC % 0, Sodium 137, Potassium 4.5, Chloride 105, Carbon Dioxide 21.0, Anion Gap 11, BUN 45 H, Creatinine 1.34 H, Estim Creat Clear Calc 48.55 L, Est GFR (MDRD) Non-Af 42 L, BUN/Creatinine Ratio 33.4 H, Glucose 176 H, Calcium 8.1 Micro: Microbiology 03/22/25 22:04 Blood Culture (Wb) - Venous Blood Culture - Preliminary Streptococcus spp. 03/22/25 21:20 Blood Culture (Wb) - Anticubital Right Bacteria Detection (PCR) - Final Strep not Strep pneumo 03/22/25 21:20 Blood Culture (Wb) - Anticubital Right Blood Culture - Preliminary Streptococcus spp. Imaging Radiology Impression Echocardiogram 03/23/25 01:22 Interpretation Summary Normal LV size. The left ventricular ejection fraction is 50 %. Moderately dilated right ventricle. Mild global right ventricular systolic dysfunction. Mild tricuspid valve insufficiency. Pulmonary artery systolic pressure is 37 mmHg. Ordering Physician: Martínez Archer Referring Physician: Emperatriz Sepulveda M.D. Performed By: Leslie Sebastian RDCS
--- NOTE | 2025-03-24 18:46 | PN.HOSP_ITS ---
Reason for Visit Chief Complaint: Generalized weakness Subjective Subjective Patient was seen and examined today, her blood culture grew out strep, I had infectious diseases see the patient and they kept her on IV Rocephin. Infectious diseases feels that the patient's cellulitis is responsible for the positive blood cultures. Objective Data Objective Data Vital Signs: Vital Signs Temp Pulse Resp BP Pulse Ox O2 Del Method O2 Flow Rate 98.2 F 80 14 130/68 H 96 Room Air 3 03/24/25 18:07 03/24/25 18:09 03/24/25 18:07 03/24/25 18:07 03/24/25 18:07 03/24/25 18:07 03/24/25 09:09 Oxygen Flow Rate (L/min) 3 Oxygen Delivery Method Room Air Weight: 110.7 kg Body Mass Index (BMI) 39.4 Intake & Output: Intake and Output for Last 24 Hours 03/22/25 03/23/25 03/24/25 23:59 23:59 23:59 Intake Total 1054.17 / 1054.17 3235.83 / 3235.83 900 / 900 Output Total 0 / 0 1200 / 1200 Balance 1054.17 / 1054.17 3235.83 / 3235.83 -300 / -300 Lab / Micro Data 03/26/25 06:00 03/26/25 06:00 Labs: Laboratory Results - last 24 hr 03/23/25 21:54: POC Glucose 205 H 03/24/25 06:14: WBC 14.1 H, RBC 3.33 L, Hgb 9.7 L, Hct 29.8 L, MCV 89.5, MCH 29.1, MCHC 32.6, RDW Std Deviation 46.1 H, RDW Coeff of Rocio 14.1, Plt Count 161, MPV 11.8, Immature Gran % (Auto) 0.400, Neut % (Auto) 86.4 H, Lymph % (Auto) 7.1 L, [place] % (Auto) 5.9, Eos % (Auto) 0.1, Baso % (Auto) 0.1, Absolute Neuts (auto) 12.2 H, Absolute Lymphs (auto) 1.00, Nucleated RBC % 0, Sodium 137, Potassium 4.5, Chloride 105, Carbon Dioxide 21.0, Anion Gap 11, BUN 45 H, Creatinine 1.34 H, Estim Creat Clear Calc 48.55 L, Est GFR (MDRD) Non-Af 42 L, BUN/Creatinine Ratio 33.4 H, Glucose 176 H, Calcium 8.1 Micro: Microbiology 03/22/25 22:04 Blood Culture (Wb) - Venous Blood Culture - Preliminary Streptococcus spp. 03/22/25 21:20 Blood Culture (Wb) - Anticubital Right Bacteria Detection (PCR) - Final Strep not Strep pneumo 03/22/25 21:20 Blood Culture (Wb) - Anticubital Right Blood Culture - Preliminary Streptococcus spp. Physical Exam Const alert, oriented x3 and no apparent distress General Appearance: cooperative, well kempt and well developed Orientation / Consciousness: awake, oriented to person, oriented to place and oriented to time HEENT normocephalic, head/scalp atraumatic and moist oral mucous membranes Eyes PERRL, EOMs intact bilaterally and conjunctivae normal Neck supple, no JVD and thyroid normal General: trachea midline Resp normal respiratory effort, no retractions, no use of accessory muscles and clear to auscultation bilaterally Auscultation: Negative for rales, rhonchi or wheezes Cardio S1 normal heart sound, S2 normal heart sound, no murmurs, no rub and no gallops Cardio Narrative: Heart rate and rhythm is irregular GI normal to inspection, nondistended, normoactive bowel sounds, soft to palpation, non-tender and non-distended Extremity Extremity Narrative: Patient has evidence of lymphedema of the lower extremities, there is redness noted in the left lower leg just distal to the kneecap, the area is also warm to the touch Skin Skin Narrative: Redness of the left lower leg as described above Neuro oriented x3, CN's II-XII intact bilaterally, moves all extremities, no focal motor deficits and no sensory deficits noted Sensorium / Orientation: awake and alert Speech: speech normal Psych affect normal Assessment & Plan Assessment/Plan (1) Sepsis: PLAN: Plan 1. Sepsis secondary to streptococcal bacteremia from cellulitis of the left leg-infectious diseases is recommended Rocephin be continued #2 chronic lymphedema of the legs-I have decided to place the patient on some IV Lasix to see if I can remove some fluid from the lower extremity #3 chronic atrial fibrillation-patient is on Eliquis and rate limiting medication #4 essential hypertension-patient will remain on her current medication #5 type 2 diabetes-blood sugars will be monitored, sliding scale insulin will be administered as needed #6 chronic congestive heart failure with normal ejection fraction-again patient will remain on IV Lasix #7 mild pulmonary hypertension-again patient is on Lasix Total clinical time spent by myself addressing the patient's medical issues, reviewing all of her data, and collaborating with patient's care team: 35-minute Charges/Coding Visit Charges Inpatient E&M: 33088 Subs Hosp L2
[2025-03-24] MEDS: Insulin Glargine-YFGN 100 UNIT/ML Pen 18 UNIT SC (21:02)
[2025-03-25] VITALS (10 sets, daily range): BP systolic 118–130; BP diastolic 66–90; PULSE 64–95; RESP 14–17; TEMP 36.2–36.9; O2SAT 93–99
[2025-03-25] MEDS: Furosemide 20 MG/2 ML VIAL IV ×3 (05:13→21:32)
[2025-03-25] MEDS: 0.9% Saline Lock 10 ML Syringe IV ×3 (05:13→21:32)
[2025-03-25] MEDS: APIXABAN 5 MG TABLET PO ×2 (09:18→21:32)
[2025-03-25] MEDS: Potassium Chloride Oral Tablet 20 MEQ PO ×2 (09:19→17:32)
--- NOTE | 2025-03-25 10:17 | PCM.PN.ID ---
Physical Exam Narrative Feeling better, no fever, leg less sore Const alert and no apparent distress General Appearance: cooperative Resp normal air movement and clear to auscultation bilaterally Cardio regular rate and regular rhythm GI soft to palpation, non-tender and non-distended Extremity General Extremity: edema Skin Skin Narrative: improved redness ID ID: Route of nutrition/ use of supplements: [] Nutritional Intake: [] IV Site: [] Harry Catheter: [] Assessment & Plan Assessment/Plan (1) Cellulitis of left leg: (2) Streptococcal bacteremia: PLAN: Due to LLE cellulitis. Echo showed no veg. Ucx with GNR but UA with 0-5 wbc. Cont ceftriaxone. Plan on short course po abx at discharge. Will follow (3) Sepsis:
--- NOTE | 2025-03-25 20:28 | PCM.PN.HOSP ---
Reason for Visit Chief Complaint: Generalized weakness Subjective Subjective Patient was seen and examined today, she remains on antibiotic coverage per infectious diseases. I will obtain lab on her tomorrow-a CBC and a BMP. Patient is currently on room air Objective Data Objective Data Vital Signs: Vital Signs Temp Pulse Resp BP Pulse Ox O2 Del Method O2 Flow Rate 97.1 F L 95 16 128/67 H 95 Room Air 3 03/25/25 13:33 03/25/25 17:33 03/25/25 13:33 03/25/25 13:34 03/25/25 13:33 03/25/25 13:39 03/25/25 07:33 Oxygen Flow Rate (L/min) 3 Oxygen Delivery Method Room Air Weight: 110.7 kg Body Mass Index (BMI) 39.4 Intake & Output: Intake and Output for Last 24 Hours 03/23/25 03/24/25 03/25/25 23:59 23:59 23:59 Intake Total 3235.83 / 3235.83 1170 / 1170 995 / 995 Output Total 0 / 0 1500 / 1500 1450 / 1450 Balance 3235.83 / 3235.83 -330 / -330 -455 / -455 Lab / Micro Data 03/26/25 06:00 03/26/25 06:00 Labs: Laboratory Results - last 24 hr 03/22/25 23:40: Urine Color Kaya, Urine Clarity Cloudy, Urine pH 7.0, Ur Specific [place] 1.010, Urine Protein 500 H, Urine Glucose (UA) Normal, Urine Ketones Negative, Urine Occult Blood 250 H, Urine Nitrite Negative, Urine Bilirubin Negative, Urine Urobilinogen Normal, Ur Leukocyte Esterase 25 H, Urine RBC 5-10 SEEN, Urine WBC 0-5 SEEN, Ur Squamous Epith Cells 5-10 SEEN, Ur Transition Epith Cell 0-5 SEEN, Urine Bacteria 4+, Urine Mucus 0 SEEN 03/24/25 20:59: POC Glucose 224 H Micro: Microbiology 03/22/25 23:40 Urine Catheter - Catheter Urine Culture - Preliminary GNR lactose magnetic resonance imaging director Gram negative mehrdad 03/22/25 21:20 Blood Culture (Wb) - Anticubital Right Bacteria Detection (PCR) - Final Strep not Strep pneumo 03/22/25 21:20 Blood Culture (Wb) - Anticubital Right Blood Culture - Final Streptococcus spp. 03/22/25 22:04 Blood Culture (Wb) - Venous Blood Culture - Preliminary Streptococcus dysgalactiae equ Physical Exam Narrative alert, oriented x3 and no apparent distress General Appearance: cooperative, well kempt and well developed Orientation / Consciousness: awake, oriented to person, oriented to place and oriented to time HEENT normocephalic, head/scalp atraumatic and moist oral mucous membranes Eyes PERRL, EOMs intact bilaterally and conjunctivae normal Neck supple, no JVD and thyroid normal General: trachea midline Resp normal respiratory effort, no retractions, no use of accessory muscles and clear to auscultation bilaterally Auscultation: Negative for rales, rhonchi or wheezes Cardio S1 normal heart sound, S2 normal heart sound, no murmurs, no rub and no gallops Cardio Narrative: Heart rate and rhythm is irregular GI normal to inspection, nondistended, normoactive bowel sounds, soft to palpation, non-tender and non-distended Extremity Extremity Narrative: Patient has evidence of lymphedema of the lower extremities, there is redness noted in the left lower leg just distal to the kneecap, the area is also warm to the touch Skin Skin Narrative: Redness of the left lower leg as described above Neuro oriented x3, CN's II-XII intact bilaterally, moves all extremities, no focal motor deficits and no sensory deficits noted Sensorium / Orientation: awake and alert Speech: speech normal Psych affect normal Assessment & Plan Assessment/Plan (1) Sepsis: PLAN: Plan 1. Sepsis secondary to streptococcal bacteremia from cellulitis of the left leg-infectious diseases has recommended Rocephin be continued, labs will be obtained tomorrow morning #2 chronic lymphedema of the legs-I have decided to place the patient on some IV Lasix to see if I can remove some fluid from the lower extremity #3 chronic atrial fibrillation-patient is on Eliquis and rate limiting medication #4 essential hypertension-patient will remain on her current medication #5 type 2 diabetes-blood sugars will be monitored, sliding scale insulin will be administered as needed #6 chronic congestive heart failure with normal ejection fraction-again patient will remain on IV Lasix #7 mild pulmonary hypertension-again patient is on Lasix #8 cystitis-continue present antibiotic coverage Total clinical time spent by myself addressing the patient's medical issues, reviewing all of her data, and collaborating with patient's care team: 35-minute Charges/Coding Visit Charges Inpatient E&M: 61247 Subs Hosp L2
[2025-03-25] MEDS: Insulin Glargine-YFGN 100 UNIT/ML Pen 18 UNIT SC (21:32)
[2025-03-26 01:00] VITALS: PULSE 54
[2025-03-26 03:15] VITALS: BP 121/72; PULSE 52; RESP 14; TEMP 36.5; O2SAT 97
[2025-03-26] MEDS: Furosemide 20 MG/2 ML VIAL IV ×2 (05:08→12:36)
[2025-03-26 06:50] LABS: Hematocrit 32.6 % (37-47); Hemoglobin 10.4 g/dL (12.0-15.0); Immature Granulocytes Count 0.090 X10^3/uL (0.0-0.0); Mean Corp Hgb Conc 31.9 g/dL (32-36); Mean Corpuscular Volume 89.3 fL (81-99); Mean Platelet Vol. 11.5 fl (6.2-12.0); NRBC Flagged by Analyzer 0 % (0-5); Platelet Count 208 K/mm3 (150-450); RBC Distribution Width CV 13.5 % (11.6-14.6); RBC Distribution Width SD 44.6 fl (35.1-43.9); Red Blood Count 3.65 M/mm3 (4.2-5.4); White Blood Count 7.7 K/mm3 (4.4-11.0)
[2025-03-26 07:25] LABS: Anion Gap 13 (5-15); BUN 49 mg/dL (4-19); BUN/Creat Ratio 40.9 RATIO (10-20); Calcium,Total 8.7 mg/dL (7.6-11.0); Carbon Dioxide 19.8 mmol/L (21.0-32.0); Chloride 106 mmol/L (98-108); Estimated Creatinine Clearance 54.21 ml/min (50-250); Glucose 212 mg/dL (70-99); Potassium 4.0 mmol/L (3.3-5.1)
[2025-03-26 07:46] VITALS: BP 136/84; PULSE 61
[2025-03-26] MEDS: APIXABAN 5 MG TABLET PO (07:46)
[2025-03-26 07:47] VITALS: PULSE 61
[2025-03-26] MEDS: Potassium Chloride Oral Tablet 20 MEQ PO (07:47)
[2025-03-26 08:16] VITALS: BP 136/84; PULSE 61; RESP 18; TEMP 36.7; O2SAT 98
--- NOTE | 2025-03-26 11:15 | PCM.PN.ID ---
Physical Exam Narrative Feeling better, no fever, no n/v/d. No pain in leg. Const alert and no apparent distress General Appearance: cooperative Resp normal air movement and clear to auscultation bilaterally Cardio regular rate and regular rhythm GI soft to palpation, non-tender and non-distended Extremity General Extremity: edema Skin Skin Narrative: LLE improved redness ID ID: Route of nutrition/ use of supplements: [] Nutritional Intake: [] IV Site: [] Harry Catheter: [] Assessment & Plan Assessment/Plan (1) Cellulitis of left leg: (2) Streptococcal bacteremia: PLAN: Due to LLE cellulitis. Echo showed no veg. Ucx with GNR but UA with 0-5 wbc. On ceftriaxone. Much improved, ok for home with po keflex 500mg tid for 5 more days. D/w Dr. Wilson Will follow prn (3) Sepsis:
--- NOTE | 2025-03-26 11:29 | DCINST_ITS ---
Discharge Instructions DC O2, CPAP, BIPAP needs Home O2 Discharge instructions: No Dressing / Incision Discharge Activity: Return to Normal Activity Weight Bearing Status: Full weight bearing Follow Up Care Test Results: Test results from this visit will be discussed in further detail at your follow- up appointment, if applicable. Discharge Plan Admission Admit Date/Time: 03/23/25 00:11 Primary Reason for Your Visit: Cellulitis, sepsis Attending Provider: Sameer Wilson Primary Care Provider: Emperatriz Sepulveda Consulting Providers: Martínez Archer; Parker Castillo Discharge Orders/Prescriptions Prescriptions: New cephalexin 500 mg capsule 500 mg PO TID Qty: 14 0RF Continued simvastatin 40 mg tablet 40 mg PO QHS Qty: 90 3RF cholecalciferol (vitamin D3) 50 mcg (2,000 unit) capsule 50 mcg PO DAILY glimepiride 4 MG tablet 4 mg PO BIDCM omeprazole 20 MG capsule,delayed release(DR/EC) 20 mg PO DAILY felodipine 10 MG tablet extended release 24 hr 20 mg PO DAILY insulin glargine 100 unit/mL (3 mL) insulin pen 22 unit subcut QHS multivitamin Tablet 1 tab PO DAILY carvedilol 12.5 mg tablet 12.5 mg PO DAILY Rx Instructions: TAKE 1 TABLET TWICE DAILY, MUST ADMINISTER WITH MEALS, FOOD levothyroxine 25 mcg tablet 25 mcg PO DAILY potassium chloride 20 mEq tablet,ER particles/crystals 20 meq PO BID furosemide 40 mg tablet See Rx Instructions .ROUTE .COMPLEX Qty: 180 3RF Dose Instruction: TAKE 1 TABLET TWICE DAILY Rx Instructions: TAKE 1 TABLET TWICE DAILY Eliquis 5 mg tablet 5 mg PO BID Qty: 60 11RF hydralazine 25 mg tablet 25 mg PO TID Qty: 270 3RF isosorbide mononitrate 30 mg tablet extended release 24 hr 30 mg PO DAILY Qty: 90 3RF digoxin 125 mcg (0.125 mg) tablet 125 mcg PO DAILY Qty: 90 3RF Referrals / Follow Up: Emperatriz Sepulveda MD [Primary Care Provider] - See Referral Note (In 2 weeks) Disposition Disposition (needs filled in before D/C Order can be placed): Home, Self Care
--- NOTE | 2025-03-26 11:32 | PCM.DC.SUM ---
Providers Date of Admission: 03/23/25 Date of Discharge: 03/26/25 Primary Care Physician: Dr. Emperatriz Sepulveda MD Consultations 03/24/25 08:53 Consult: Infectious Disease Routine Consulting Provider: Parker Castillo Reason for Consult: Positive blood culture EMERGENT Consult: No MD Notified: Yes Date Notified: 03/24/25 Time Notified: 08:53 Method of Notification: Verbal Reason For Visit: PNEUMONIA, GENERALIZED WEAKNESS Diagnosis Discharge Diagnosis (1) Cellulitis of left leg: Status: Acute Code(s): L03.116 - Cellulitis of left lower limb (2) Streptococcal bacteremia: Status: Acute Code(s): R78.81 - Bacteremia; B95.5 - Unspecified streptococcus as the cause of diseases classified elsewhere (3) Sepsis: Status: Acute Code(s): A41.9 - Sepsis, unspecified organism Plan 1. Sepsis secondary to streptococcal bacteremia from cellulitis of the left leg-infectious diseases has recommended Rocephin be continued, labs will be obtained tomorrow morning #2 chronic lymphedema of the legs-I have decided to place the patient on some IV Lasix to see if I can remove some fluid from the lower extremity #3 chronic atrial fibrillation-patient is on Eliquis and rate limiting medication #4 essential hypertension-patient will remain on her current medication #5 type 2 diabetes-blood sugars will be monitored, sliding scale insulin will be administered as needed #6 chronic congestive heart failure with normal ejection fraction-again patient will remain on IV Lasix #7 mild pulmonary hypertension-again patient is on Lasix #8 cystitis-continue present antibiotic coverage Medications at Discharge Home Medications felodipine 10 mg tablet,extended release 24 hr 20 mg PO DAILY High BP 12/14/19 glimepiride 4 mg tablet 4 mg PO BIDCM Diabetes 12/14/19 omeprazole 20 mg capsule,delayed release 20 mg PO DAILY GERD 12/14/19 multivitamin 1 tab PO DAILY SUPPLEMENT 01/25/21 simvastatin 40 mg tablet 40 mg PO QHS HIGH CHOLESTEROL #90 tabs 02/27/21 insulin glargine 100 unit/mL (3 mL) subcutaneous pen 22 unit subcut QHS DM 12/25/21 furosemide 40 mg tablet See Rx Instructions .Route .COMPLEX water pill #180 tabs 08/28/23 cholecalciferol (vitamin D3) 50 mcg (2,000 unit) capsule 50 mcg PO DAILY DEFICIENCY 02/11/24 apixaban 5 mg tablet (Eliquis) 5 mg PO BID A. FIB. #60 tabs 05/12/24 hydralazine 25 mg tablet 25 mg PO TID HTN #270 tabs 11/11/24 digoxin 125 mcg (0.125 mg) tablet 125 mcg PO DAILY heart rate #90 tabs 03/01/25 isosorbide mononitrate 30 mg tablet,extended release 24 hr 30 mg PO DAILY HYPERTENSION #90 tabs 03/01/25 carvedilol 12.5 mg tablet 12.5 mg PO DAILY HYPERTENSION 03/23/25 levothyroxine 25 mcg tablet 25 mcg PO DAILY HYPOTHYROIDISM 03/23/25 potassium chloride 20 mEq tablet,extended release(part/cryst) 20 meq PO BID HYPOKALEMIA 03/23/25 cephalexin 500 mg capsule 500 mg PO TID #14 caps 03/26/25 Hospital Course Operations None Procedures 2-D Echocardiogram Summary of Care Provided Minutes Spent on Discharge: 31 Hospital Course: This 69-year-old white female was seen in the emergency room at [facility] with complaints of generalized weakness and malaise. CBC showed an elevated leukocytosis of 26,000, lactic acid was elevated 2.5 and patient's Rut beta natruretic peptide was elevated at 31,913. Chest x-ray was obtained which showed interstitial edema and vascular congestion. Patient was started on Rocephin and Zithromax for suspected pneumonia also and admitted to PCU, patient also had an area of cellulitis on her left leg. She was given diuretics, blood culture finally returned positive for strep and she was seen by infectious diseases. This examiner did not feel she had community-acquired pneumonia, infectious diseases felt her positive blood cultures were secondary to her cellulitis. Patient improved during her hospital stay, she was given IV Lasix for diuresis and her lower extremity edema improved somewhat. Patient did have evidence of chronic lymphedema in her lower legs. On 03/26/2025, patient was seen and examined:lert, oriented x3 and no apparent distress General Appearance: cooperative, well kempt and well developed Orientation / Consciousness: awake, oriented to person, oriented to place and oriented to time HEENT normocephalic, head/scalp atraumatic and moist oral mucous membranes Eyes PERRL, EOMs intact bilaterally and conjunctivae normal Neck supple, no JVD and thyroid normal General: trachea midline Resp normal respiratory effort, no retractions, no use of accessory muscles and clear to auscultation bilaterally Auscultation: Negative for rales, rhonchi or wheezes Cardio S1 normal heart sound, S2 normal heart sound, no murmurs, no rub and no gallops Cardio Narrative: Heart rate and rhythm is irregular GI normal to inspection, nondistended, normoactive bowel sounds, soft to palpation, non-tender and non-distended Extremity Extremity Narrative: Patient has evidence of lymphedema of the lower extremities, there is redness noted in the left lower leg just distal to the kneecap, the area is also warm to the touch Skin Skin Narrative: Redness of the left lower leg as described above Neuro oriented x3, CN's II-XII intact bilaterally, moves all extremities, no focal motor deficits and no sensory deficits noted Sensorium / Orientation: awake and alert Speech: speech normal Psych affect normal Patient appears to be stable for discharge home on 03/26/2025. Weight / BMI Weight Weight: 110.7 kg Body Mass Index (BMI) 39.4 ABG / Lab / Microbiology Data 03/26/25 06:00 03/26/25 06:00 Laboratory: Laboratory Results - last 24 hr 03/22/25 23:40: Urine Color Kaya, Urine Clarity Cloudy, Urine pH 7.0, Ur Specific [place] 1.010, Urine Protein 500 H, Urine Glucose (UA) Normal, Urine Ketones Negative, Urine Occult Blood 250 H, Urine Nitrite Negative, Urine Bilirubin Negative, Urine Urobilinogen Normal, Ur Leukocyte Esterase 25 H, Urine RBC 5-10 SEEN, Urine WBC 0-5 SEEN, Ur Squamous Epith Cells 5-10 SEEN, Ur Transition Epith Cell 0-5 SEEN, Urine Bacteria 4+, Urine Mucus 0 SEEN 03/25/25 21:31: POC Glucose 360 H 03/26/25 06:00: WBC 7.7, RBC 3.65 L, Hgb 10.4 L, Hct 32.6 L, MCV 89.3, MCH 28.5, MCHC 31.9 L, RDW Std Deviation 44.6 H, RDW Coeff of Rocio 13.5, Plt Count 208, MPV 11.5, Immature Gran % (Auto) 1.200 H, Neut % (Auto) 71.3 H, Lymph % (Auto) 18.8 L, [place] % (Auto) 7.8, Eos % (Auto) 0.6, Baso % (Auto) 0.3, Absolute Neuts (auto) 5.5, Absolute Lymphs (auto) 1.45, Nucleated RBC % 0, Sodium 139, Potassium 4.0, Chloride 106, Carbon Dioxide 19.8 L, Anion Gap 13, BUN 49 H, Creatinine 1.20, Estim Creat Clear Calc 54.21, Est GFR (MDRD) Non-Af 48 L, BUN/Creatinine Ratio 40.9 H, Glucose 212 H, Calcium 8.7 Microbiology: Microbiology 03/22/25 23:40 Urine Catheter - Catheter Urine Culture - Preliminary Escherichia coli Raoultella planticola Streptococcus gallolyticus gal Gram negative mehrdad 03/22/25 22:04 Blood Culture (Wb) - Venous Blood Culture - Final Streptococcus dysgalactiae equ 03/22/25 21:20 Blood Culture (Wb) - Anticubital Right Bacteria Detection (PCR) - Final Strep not Strep pneumo 03/22/25 21:20 Blood Culture (Wb) - Anticubital Right Blood Culture - Final Streptococcus spp. D/C Instructions Weight Bearing Status: Full weight bearing DC O2, CPAP, BIPAP Needs Home O2 Discharge instructions: No Meaningful Use Info Meaningful Use Meaningful Use Diagnoses (Choose all that apply): None applicable Discharge Plan Admission Admit Date/Time: 03/23/25 00:11 Primary Reason for Your Visit: Cellulitis, sepsis Attending Provider: Sameer Wilson Primary Care Provider: Emperatriz Sepulveda Consulting Providers: Martínez Archer; Parker Castillo Discharge Orders/Prescriptions Prescriptions: New cephalexin 500 mg capsule 500 mg PO TID Qty: 14 0RF Continued simvastatin 40 mg tablet 40 mg PO QHS Qty: 90 3RF cholecalciferol (vitamin D3) 50 mcg (2,000 unit) capsule 50 mcg PO DAILY glimepiride 4 MG tablet 4 mg PO BIDCM omeprazole 20 MG capsule,delayed release(DR/EC) 20 mg PO DAILY felodipine 10 MG tablet extended release 24 hr 20 mg PO DAILY insulin glargine 100 unit/mL (3 mL) insulin pen 22 unit subcut QHS multivitamin Tablet 1 tab PO DAILY carvedilol 12.5 mg tablet 12.5 mg PO DAILY Rx Instructions: TAKE 1 TABLET TWICE DAILY, MUST ADMINISTER WITH MEALS, FOOD levothyroxine 25 mcg tablet 25 mcg PO DAILY potassium chloride 20 mEq tablet,ER particles/crystals 20 meq PO BID furosemide 40 mg tablet See Rx Instructions .ROUTE .COMPLEX Qty: 180 3RF Dose Instruction: TAKE 1 TABLET TWICE DAILY Rx Instructions: TAKE 1 TABLET TWICE DAILY Eliquis 5 mg tablet 5 mg PO BID Qty: 60 11RF hydralazine 25 mg tablet 25 mg PO TID Qty: 270 3RF isosorbide mononitrate 30 mg tablet extended release 24 hr 30 mg PO DAILY Qty: 90 3RF digoxin 125 mcg (0.125 mg) tablet 125 mcg PO DAILY Qty: 90 3RF Referrals / Follow Up: Emperatriz Sepulveda MD [Primary Care Provider] - See Referral Note (In 2 weeks) Disposition Disposition (needs filled in before D/C Order can be placed): Home, Self Care Charges/Coding Visit Charges Inpatient E&M: 56917 Disch Hosp >30min
--- NOTE | 2025-03-26 12:03 | CASEMGMT ---
Patient has order for discharge. RN CM in to discuss needs at discharge. Patient states she would like walker at discharge, prefers [employer]. Patient denies further needs or concerns. RN CM received script for walker and sent to [facility] via [facility] with arrangements for walker to be delivered to patient's room prior to discharge. RN CM updated discharge.
[2025-03-26 12:35] VITALS: PULSE 68
== END 2025-03-26 14:14 | disposition home or self-care (01) | DRG 871 ==
LOC: ED 23:25 → PCU 03-23 00:12
PROVIDERS: Admitting Provider Family Medicine; Emergency Provider Emergency Medicine; PCP Internal Medicine; Visit Provider Internal Medicine
DX: A40.9 Streptococcal sepsis, unspecified (principal); J18.9 Pneumonia, unspecified organism; I42.9 Cardiomyopathy, unspecified; I13.0 Hypertensive heart and chronic kidney disease with heart failure and stage 1 through stage 4 chronic kidney disease, or unspecified chronic kidney disease; I50.32 Chronic diastolic (congestive) heart failure; I48.21 Permanent atrial fibrillation; L03.116 Cellulitis of left lower limb; E11.22 Type 2 diabetes mellitus with diabetic chronic kidney disease; N18.9 Chronic kidney disease, unspecified; Z79.4 Long term (current) use of insulin; K21.9 Gastro-esophageal reflux disease without esophagitis; I25.10 Atherosclerotic heart disease of native coronary artery without angina pectoris; E78.2 Mixed hyperlipidemia; I89.0 Lymphedema, not elsewhere classified; N30.90 Cystitis, unspecified without hematuria; Z79.84 Long term (current) use of oral hypoglycemic drugs; Z79.01 Long term (current) use of anticoagulants; Z79.890 Hormone replacement therapy; Z79.899 Other long term (current) drug therapy
CPT/HCPCS: 36415; 71045; 80048; 80053; 81001; 82962; 83605; 83880; 85025; 85610; 85730; 87040; 87077; 87086; 87088; 87149; 87186; 93005; 93306; 97161; 97166; 99285; A4216; J0696; J1938; J2405